=== PATIENT | female | born 1950 | race Hispanic/Latino ===

== ENCOUNTER 2016-03-23 16:07 | Inpatient (IN) | payer MEDICARE ==
[2016-03-23] MEDS ORDERED: NARCAN 2 MG/2 ML ONE ×3 (16:52→18:35)
--- NOTE | 2016-03-23 17:18 | Emergency Department Report ---
ED Altered Mental Status HPI - General Chief Complaint: Altered Mental Status Stated Complaint: OVERDOSE Time Seen by Provider: 03/23/16 16:46 Source: EMS Mode of arrival: Stretcher Limitations: Altered Mental Status - History of Present Illness Initial Comments: She has a 65-year-old female with history of chronic kidney disease, COPD, hyperlipidemia, hypertension, TIA and chronic back pain which she takes multiple medications including hydrocodone, gabapentin and baclofen brought in by embolus because of altered mental status. Family called EMS because patient was somnolent and they thought that she had overdosed on her medication. EMS had given him 2 mg of Narcan and the patient's altered mental status improved was able to wake up enough to answer some questions. Here she is unable to answer any questions or follow commands. Patient has stooled herself. - Related Data Home Medications Medication Instructions Recorded Confirmed Last Taken Gabapentin 600 cap PO TID 11/13/13 03/23/16 03/23/16 Baclofen [Lioresal] 10 mg PO TID 06/08/15 03/23/16 03/23/16 Clopidogrel [Plavix] 75 mg PO QDAY 06/08/15 03/23/16 03/23/16 Lumigan 0.01% 1 drop OU HS 02/26/16 03/23/16 03/23/16 Previous Rx's Medication Instructions Recorded Last Taken Type AtorvaSTATin [Lipitor] 40 mg PO DAILY #30 tablet 06/02/15 03/23/16 Rx metFORMIN [Glucophage] 1 tab PO BID #60 tablet 06/02/15 03/23/16 Rx HYDROcodone/APAP 10-325 [[place] 1 each PO Q6H PRN #6 tablet 03/02/16 03/23/16 Rx 10-325 mg TAB] Lisinopril [Zestril TAB] 20 mg PO QDAY #30 tablet 03/02/16 03/23/16 Rx Nicotine [Habitrol] 21 mg TD QDAY patch 03/02/16 03/23/16 Rx hydrALAZINE [Apresoline TAB] 25 mg PO Q12HR tablet 03/02/16 03/23/16 Rx Allergies Allergy/AdvReac Type Severity Reaction Status Date / Time Sulfa (Sulfonamide Allergy Rash Verified 02/25/16 19:43 Antibiotics) ED Review of Systems ROS: Stated complaint: OVERDOSE Other details as noted in HPI Comment: Unobtainable due to pts medical conditions (altered mental status) ED Past Medical Hx - Past Medical History Previous Medical History?: Yes Hx Hypertension: Yes (2010) Hx CVA: Yes (tia) Hx Heart Attack/AMI: (Pt denies) Hx Diabetes: Yes Hx GERD: Yes Hx Renal Disease: Yes (Renal insufficiency ) Hx Arthritis: Yes Hx COPD: Yes Additional medical history: tremors, pancreatitis - Surgical History Past Surgical History?: Yes Hx Breast Surgery: Yes ([facility]) - Social History Smoking Status: Current Every Day Smoker Substance Use Type: Prescribed - Medications Home Medications: Home Medications Medication Instructions Recorded Confirmed Last Taken Type Gabapentin 600 cap PO TID 11/13/13 03/23/16 03/23/16 History AtorvaSTATin [Lipitor] 40 mg PO DAILY #30 tablet 06/02/15 03/23/16 03/23/16 Rx metFORMIN [Glucophage] 1 tab PO BID #60 tablet 06/02/15 03/23/16 03/23/16 Rx Baclofen [Lioresal] 10 mg PO TID 06/08/15 03/23/16 03/23/16 History Clopidogrel [Plavix] 75 mg PO QDAY 06/08/15 03/23/16 03/23/16 History Lumigan 0.01% 1 drop OU HS 02/26/16 03/23/16 03/23/16 History HYDROcodone/APAP 10-325 [[place] 1 each PO Q6H PRN #6 tablet 03/02/16 03/23/16 Rx 10-325 mg TAB] Lisinopril [Zestril TAB] 20 mg PO QDAY #30 tablet 03/02/16 03/23/16 03/23/16 Rx Nicotine [Habitrol] 21 mg TD QDAY patch 03/02/16 03/23/16 03/23/16 Rx hydrALAZINE [Apresoline TAB] 25 mg PO Q12HR tablet 03/02/16 03/23/16 03/23/16 Rx ED Physical Exam - General Limitations: Altered Mental Status General appearance: obtunded - Head Head exam: Present: atraumatic - Eye Eye exam: Present: other (pulse pinpoint, doll's eye reflex negative) - Neck Neck exam: Present: normal inspection - Respiratory Respiratory exam: Present: normal lung sounds bilaterally, other (patient hypoxic to the high 80s while on 3 L nasal cannula) - Cardiovascular Cardiovascular Exam: Present: regular rate, normal rhythm - GI/Abdominal GI/Abdominal exam: Present: soft, other. Absent: distended, tenderness - Rectal Rectal exam: Present: other (Brown stool guaiac positive) - Extremities Exam Extremities exam: Present: normal capillary refill - Neurological Exam Neurological exam: Present: other (unresponsive to questions occasionally moves upper extremities to pain) - Skin Skin exam: Present: other (small bruise in the right lower extremity.) ED Course Vital Signs 03/23/16 03/23/16 03/23/16 16:16 16:31 17:01 Temperature 98.2 F Pulse Rate 99 H 91 H Pulse Rate [ Bilateral] Respiratory 14 23 Rate Respiratory Rate [Bilateral ] Blood Pressure 200/165 153/110 Blood Pressure [Right] O2 Sat by Pulse 71 L 86 97 Oximetry 03/23/16 03/23/16 03/23/16 17:38 18:17 18:50 Temperature 98.2 F Pulse Rate 92 H 93 H Pulse Rate [ Bilateral] Respiratory 18 Rate Respiratory Rate [Bilateral ] Blood Pressure 153/110 119/58 Blood Pressure 154/110 [Right] O2 Sat by Pulse 100 97 100 Oximetry 03/23/16 03/23/16 03/23/16 19:01 19:27 19:31 Temperature Pulse Rate 88 94 H 96 H Pulse Rate [ Bilateral] Respiratory 18 9 L 20 Rate Respiratory Rate [Bilateral ] Blood Pressure 153/110 153/110 153/110 Blood Pressure [Right] O2 Sat by Pulse 99 100 99 Oximetry 03/23/16 03/23/16 03/23/16 20:00 20:12 20:45 Temperature Pulse Rate 91 H 97 H Pulse Rate [ 96 H Bilateral] Respiratory 16 Rate Respiratory 18 Rate [Bilateral ] Blood Pressure 106/55 114/57 Blood Pressure [Right] O2 Sat by Pulse 87 99 Oximetry - Reevaluation(s) Reevaluation #1: 03/23/16 17:18 Give the patient Narcan in 0.5 mg doses up to 2 mg and patient was able to speak and would move all extremities hours following any complex commands, oxygen saturation moved up to 98-99% on 3 L nasal cannula Reevaluation #2: 03/23/16 18:53 She reassessed at bedside. Patient is not tolerating secretions have a significant amount of mucous coming out of her nose and mouth. Will not respond to any commands or awaken. He has received a total of 6 mg of Narcan. Patient intubated for airway protection. Reevaluation #3: 03/23/16 19:24 Chest x-ray shows et tube in place Reevaluation #4: 03/23/16 20:34 Patient is hemodynamically stable. Her labs did reveal hyperkalemia as well as renal failure. Insulin and dextrose, albuterol and bicarbonate were ordered. Page hospitalist at 8:10 PM, unable to take patient currently, we'll wait for 9 PM hospitalist - Intubation Time Out Performed: Yes Sedative: Etomidate Mg Given: 20 Paralytic: Rocuronium Mg Given: 40 (due to patient's hyperkalemia on labs) Laryngoscope: Tatyana Size: 3 ET Tube Size: 7.5 Tube Secured Depth (cm): 22 Tube Secured Location: lips Tube Placement Confirmation: visualized tube passing t, equal breath sounds bilat, confirmation by capnometr Patient Tolerated Procedure: well Intubation Complications: none - Lab Data Result diagrams: 03/23/16 18:14 03/23/16 17:33 Lab Results 03/23/16 03/23/16 03/23/16 Range/Units 17:33 17:33 17:33 WBC (4.5-11.0) K/mm3 RBC (3.65-5.03) M/mm3 Hgb (10.1-14.3) gm/dl Hct (30.3-42.9) % MCV (79-97) fl MCH (28-32) pg MCHC (30-34) % RDW (13.2-15.2) % Plt Count (140-440) K/mm3 [place] % (Auto) Add Manual Diff Total Counted Seg Neuts % (Manual) (40.0-70.0) % Band Neutrophils % % Lymphocytes % (Manual) (13.4-35.0) % Reactive Lymphs % (Man) % Monocytes % (Manual) (0.0-7.3) % Eosinophils % (Manual) (0.0-4.3) % Basophils % (Manual) (0.0-1.8) % Metamyelocytes % % Myelocytes % % Promyelocytes % % Blast Cells % % Nucleated RBC % Seg Neutrophils # Man (1.8-7.7) K/mm3 Band Neutrophils # K/mm3 Lymphocytes # (Manual) (1.2-5.4) K/mm3 Abs React Lymphs (Man) K/mm3 Monocytes # (Manual) (0.0-0.8) K/mm3 Eosinophils # (Manual) (0.0-0.4) K/mm3 Basophils # (Manual) (0.0-0.1) K/mm3 Metamyelocytes # K/mm3 Myelocytes # K/mm3 Promyelocytes # K/mm3 Blast Cells # K/mm3 WBC Morphology Hypersegmented Neuts Hyposegmented Neuts Hypogranular Neuts Smudge Cells Toxic Granulation Toxic Vacuolation Dohle Bodies Pelger-Huet Anomaly Sameer Rods Platelet Estimate Clumped Platelets Plt Clumps, EDTA Large Platelets Giant Platelets Platelet Satelliting Plt Morphology Comment RBC Morphology Dimorphic RBCs Polychromasia Hypochromasia Poikilocytosis Anisocytosis Microcytosis Macrocytosis Spherocytes Pappenheimer Bodies Sickle Cells Target Cells Tear Drop Cells Ovalocytes Helmet Cells Steve-Lasana Bodies [place] Rings Ryan Cells Bite Cells Crenated Cell Elliptocytes Acanthocytes (Spur) Rouleaux Hemoglobin C Crystals Schistocytes Malaria parasites Konstantin Bodies Hem Pathologist Commnt PT (12.2-14.9) Sec. INR (0.87-1.13) APTT (24.2-36.6) Sec. POC ABG pH (7.35-7.45) POC ABG pCO2 (35-45) POC ABG pO2 (80-105) POC ABG HCO3 POC ABG Total CO2 POC ABG O2 Sat POC ABG Base Excess FiO2 % Sodium 135 L (137-145) mmol/L Potassium 6.4 H* (3.6-5.0) mmol/L Chloride 104.6 (98-107) mmol/L Carbon Dioxide 11 L (22-30) mmol/L Anion Gap 26 mmol/L BUN 56 H (7-17) mg/dL Creatinine 2.4 H (0.7-1.2) mg/dL Estimated GFR 20 ml/min BUN/Creatinine Ratio 23.33 % Glucose 113 H (65-100) mg/dL POC Glucose (70-105) Lactic Acid (0.7-2.0) mmol/L Calcium 8.0 L (8.4-10.2) mg/dL Magnesium 1.9 (1.7-2.3) mg/dL Total Bilirubin 0.4 (0.1-1.2) mg/dL AST 27 (5-40) units/L ALT 17 (7-56) units/L Alkaline Phosphatase 117 (35-129) units/L Total Protein 6.5 (6.3-8.2) g/dL Albumin 2.8 L (3.9-5) g/dL Albumin/Globulin Ratio 0.8 % TSH 0.264 L (0.270-4.200) mlU/mL Urine Color (Yellow) Urine Turbidity (Clear) Urine pH (5.0-7.0) Ur Specific [place] (1.003-1.030) Urine Protein (Negative) mg/dL Urine Glucose (UA) (Negative) mg/dL Urine Ketones (Negative) mg/dL Urine Blood (Negative) Urine Nitrite (Negative) Urine Bilirubin (Negative) Urine Urobilinogen (<2.0) mg/dL Ur Leukocyte Esterase (Negative) Urine WBC (Auto) (0.0-6.0) /HPF Urine RBC (Auto) (0.0-6.0) /HPF U Epithel Cells (Auto) (0-13.0) /HPF Urine Mucus /HPF Salicylates 0.6 L (2.8-20.0) mg/dL Urine Opiates Screen Urine Methadone Screen Acetaminophen (10.0-30.0) ug/mL Ur Barbiturates Screen Ur Phencyclidine Scrn Ur Amphetamines Screen U Benzodiazepines Scrn Urine Cocaine Screen U Marijuana (THC) Screen Drugs of Abuse Note Plasma/Serum Alcohol (0-0.07) gm% Blood Type Antibody Screen 03/23/16 03/23/16 03/23/16 Range/Units 17:33 17:45 17:46 WBC (4.5-11.0) K/mm3 RBC (3.65-5.03) M/mm3 Hgb (10.1-14.3) gm/dl Hct (30.3-42.9) % MCV (79-97) fl MCH (28-32) pg MCHC (30-34) % RDW (13.2-15.2) % Plt Count (140-440) K/mm3 [place] % (Auto) Add Manual Diff Total Counted Seg Neuts % (Manual) (40.0-70.0) % Band Neutrophils % % Lymphocytes % (Manual) (13.4-35.0) % Reactive Lymphs % (Man) % Monocytes % (Manual) (0.0-7.3) % Eosinophils % (Manual) (0.0-4.3) % Basophils % (Manual) (0.0-1.8) % Metamyelocytes % % Myelocytes % % Promyelocytes % % Blast Cells % % Nucleated RBC % Seg Neutrophils # Man (1.8-7.7) K/mm3 Band Neutrophils # K/mm3 Lymphocytes # (Manual) (1.2-5.4) K/mm3 Abs React Lymphs (Man) K/mm3 Monocytes # (Manual) (0.0-0.8) K/mm3 Eosinophils # (Manual) (0.0-0.4) K/mm3 Basophils # (Manual) (0.0-0.1) K/mm3 Metamyelocytes # K/mm3 Myelocytes # K/mm3 Promyelocytes # K/mm3 Blast Cells # K/mm3 WBC Morphology Hypersegmented Neuts Hyposegmented Neuts Hypogranular Neuts Smudge Cells Toxic Granulation Toxic Vacuolation Dohle Bodies Pelger-Huet Anomaly Sameer Rods Platelet Estimate Clumped Platelets Plt Clumps, EDTA Large Platelets Giant Platelets Platelet Satelliting Plt Morphology Comment RBC Morphology Dimorphic RBCs Polychromasia Hypochromasia Poikilocytosis Anisocytosis Microcytosis Macrocytosis Spherocytes Pappenheimer Bodies Sickle Cells Target Cells Tear Drop Cells Ovalocytes Helmet Cells Steve-Lasana Bodies [place] Rings [place] Cells Bite Cells Crenated Cell Elliptocytes Acanthocytes (Spur) Rouleaux Hemoglobin C Crystals Schistocytes Malaria parasites Konstantin Bodies Hem Pathologist Commnt PT (12.2-14.9) Sec. INR (0.87-1.13) APTT (24.2-36.6) Sec. POC ABG pH (7.35-7.45) POC ABG pCO2 (35-45) POC ABG pO2 (80-105) POC ABG HCO3 POC ABG Total CO2 POC ABG O2 Sat POC ABG Base Excess FiO2 % Sodium (137-145) mmol/L Potassium (3.6-5.0) mmol/L Chloride (98-107) mmol/L Carbon Dioxide (22-30) mmol/L Anion Gap mmol/L BUN (7-17) mg/dL Creatinine (0.7-1.2) mg/dL Estimated GFR ml/min BUN/Creatinine Ratio % Glucose (65-100) mg/dL POC Glucose 138 H (70-105) Lactic Acid (0.7-2.0) mmol/L Calcium (8.4-10.2) mg/dL Magnesium (1.7-2.3) mg/dL Total Bilirubin (0.1-1.2) mg/dL AST (5-40) units/L ALT (7-56) units/L Alkaline Phosphatase (35-129) units/L Total Protein (6.3-8.2) g/dL Albumin (3.9-5) g/dL Albumin/Globulin Ratio % TSH (0.270-4.200) mlU/mL Urine Color (Yellow) Urine Turbidity (Clear) Urine pH (5.0-7.0) Ur Specific [place] (1.003-1.030) Urine Protein (Negative) mg/dL Urine Glucose (UA) (Negative) mg/dL Urine Ketones (Negative) mg/dL Urine Blood (Negative) Urine Nitrite (Negative) Urine Bilirubin (Negative) Urine Urobilinogen (<2.0) mg/dL Ur Leukocyte Esterase (Negative) Urine WBC (Auto) (0.0-6.0) /HPF Urine RBC (Auto) (0.0-6.0) /HPF U Epithel Cells (Auto) (0-13.0) /HPF Urine Mucus /HPF Salicylates (2.8-20.0) mg/dL Urine Opiates Screen Urine Methadone Screen Acetaminophen < 15.0 (10.0-30.0) ug/mL Ur Barbiturates Screen Ur Phencyclidine Scrn Ur Amphetamines Screen U Benzodiazepines Scrn Urine Cocaine Screen U Marijuana (THC) Screen Drugs of Abuse Note Plasma/Serum Alcohol < 0.01 (0-0.07) gm% Blood Type Antibody Screen 03/23/16 03/23/16 03/23/16 Range/Units 18:14 18:14 18:56 WBC 11.7 H (4.5-11.0) K/mm3 RBC 2.64 L (3.65-5.03) M/mm3 Hgb 8.6 L (10.1-14.3) gm/dl Hct 26.7 L (30.3-42.9) % MCV 101 H (79-97) fl MCH 33 H (28-32) pg MCHC 32 (30-34) % RDW 15.4 H (13.2-15.2) % Plt Count 142 (140-440) K/mm3 [place] % (Auto) Surgical Elastic Knitter Add Manual Diff Complete Total Counted 100 Seg Neuts % (Manual) 52.0 (40.0-70.0) % Band Neutrophils % 32.0 % Lymphocytes % (Manual) 3.0 L (13.4-35.0) % Reactive Lymphs % (Man) 0 % Monocytes % (Manual) 13.0 H (0.0-7.3) % Eosinophils % (Manual) 0 (0.0-4.3) % Basophils % (Manual) 0 (0.0-1.8) % Metamyelocytes % 0 % Myelocytes % 0 % Promyelocytes % 0 % Blast Cells % 0 % Nucleated RBC % Not Reportable Seg Neutrophils # Man 6.1 (1.8-7.7) K/mm3 Band Neutrophils # 3.7 K/mm3 Lymphocytes # (Manual) 0.4 L (1.2-5.4) K/mm3 Abs React Lymphs (Man) 0.0 K/mm3 Monocytes # (Manual) 1.5 H (0.0-0.8) K/mm3 Eosinophils # (Manual) 0.0 (0.0-0.4) K/mm3 Basophils # (Manual) 0.0 (0.0-0.1) K/mm3 Metamyelocytes # 0.0 K/mm3 Myelocytes # 0.0 K/mm3 Promyelocytes # 0.0 K/mm3 Blast Cells # 0.0 K/mm3 WBC Morphology Not Reportable Hypersegmented Neuts Not Reportable Hyposegmented Neuts Not Reportable Hypogranular Neuts Not Reportable Smudge Cells Not Reportable Toxic Granulation Not Reportable Toxic Vacuolation Not Reportable Dohle Bodies Not Reportable Pelger-Huet Anomaly Not Reportable Sameer Rods Not Reportable Platelet Estimate Consistent w auto Clumped Platelets Not Reportable Plt Clumps, EDTA Not Reportable Large Platelets Few Giant Platelets Not Reportable Platelet Satelliting Not Reportable Plt Morphology Comment Not Reportable RBC Morphology Not Reportable Dimorphic RBCs Not Reportable Polychromasia Not Reportable Hypochromasia Not Reportable Poikilocytosis Not Reportable Anisocytosis 1+ Microcytosis Not Reportable Macrocytosis Not Reportable Spherocytes Not Reportable Pappenheimer Bodies Not Reportable Sickle Cells Not Reportable Target Cells Not Reportable Tear Drop Cells Not Reportable Ovalocytes 1+ Helmet Cells Not Reportable Steve-Lasana Bodies Not Reportable [place] Rings Not Reportable Ryan Cells Not Reportable Bite Cells Not Reportable Crenated Cell 3+ Elliptocytes Not Reportable Acanthocytes (Spur) Not Reportable Rouleaux Not Reportable Hemoglobin C Crystals Not Reportable Schistocytes Not Reportable Malaria parasites Not Reportable Konstantin Bodies Not Reportable Hem Pathologist Commnt No PT 16.8 H (12.2-14.9) Sec. INR 1.37 H (0.87-1.13) APTT 28.7 (24.2-36.6) Sec. POC ABG pH (7.35-7.45) POC ABG pCO2 (35-45) POC ABG pO2 (80-105) POC ABG HCO3 POC ABG Total CO2 POC ABG O2 Sat POC ABG Base Excess FiO2 % Sodium (137-145) mmol/L Potassium (3.6-5.0) mmol/L Chloride (98-107) mmol/L Carbon Dioxide (22-30) mmol/L Anion Gap mmol/L BUN (7-17) mg/dL Creatinine (0.7-1.2) mg/dL Estimated GFR ml/min BUN/Creatinine Ratio % Glucose (65-100) mg/dL POC Glucose (70-105) Lactic Acid 1.9 (0.7-2.0) mmol/L Calcium (8.4-10.2) mg/dL Magnesium (1.7-2.3) mg/dL Total Bilirubin (0.1-1.2) mg/dL AST (5-40) units/L ALT (7-56) units/L Alkaline Phosphatase (35-129) units/L Total Protein (6.3-8.2) g/dL Albumin (3.9-5) g/dL Albumin/Globulin Ratio % TSH (0.270-4.200) mlU/mL Urine Color (Yellow) Urine Turbidity (Clear) Urine pH (5.0-7.0) Ur Specific [place] (1.003-1.030) Urine Protein (Negative) mg/dL Urine Glucose (UA) (Negative) mg/dL Urine Ketones (Negative) mg/dL Urine Blood (Negative) Urine Nitrite (Negative) Urine Bilirubin (Negative) Urine Urobilinogen (<2.0) mg/dL Ur Leukocyte Esterase (Negative) Urine WBC (Auto) (0.0-6.0) /HPF Urine RBC (Auto) (0.0-6.0) /HPF U Epithel Cells (Auto) (0-13.0) /HPF Urine Mucus /HPF Salicylates (2.8-20.0) mg/dL Urine Opiates Screen Urine Methadone Screen Acetaminophen (10.0-30.0) ug/mL Ur Barbiturates Screen Ur Phencyclidine Scrn Ur Amphetamines Screen U Benzodiazepines Scrn Urine Cocaine Screen U Marijuana (THC) Screen Drugs of Abuse Note Plasma/Serum Alcohol (0-0.07) gm% Blood Type Antibody Screen 03/23/16 03/23/16 03/23/16 Range/Units 19:07 19:19 19:36 WBC (4.5-11.0) K/mm3 RBC (3.65-5.03) M/mm3 Hgb (10.1-14.3) gm/dl Hct (30.3-42.9) % MCV (79-97) fl MCH (28-32) pg MCHC (30-34) % RDW (13.2-15.2) % Plt Count (140-440) K/mm3 [place] % (Auto) Add Manual Diff Total Counted Seg Neuts % (Manual) (40.0-70.0) % Band Neutrophils % % Lymphocytes % (Manual) (13.4-35.0) % Reactive Lymphs % (Man) % Monocytes % (Manual) (0.0-7.3) % Eosinophils % (Manual) (0.0-4.3) % Basophils % (Manual) (0.0-1.8) % Metamyelocytes % % Myelocytes % % Promyelocytes % % Blast Cells % % Nucleated RBC % Seg Neutrophils # Man (1.8-7.7) K/mm3 Band Neutrophils # K/mm3 Lymphocytes # (Manual) (1.2-5.4) K/mm3 Abs React Lymphs (Man) K/mm3 Monocytes # (Manual) (0.0-0.8) K/mm3 Eosinophils # (Manual) (0.0-0.4) K/mm3 Basophils # (Manual) (0.0-0.1) K/mm3 Metamyelocytes # K/mm3 Myelocytes # K/mm3 Promyelocytes # K/mm3 Blast Cells # K/mm3 WBC Morphology Hypersegmented Neuts Hyposegmented Neuts Hypogranular Neuts Smudge Cells Toxic Granulation Toxic Vacuolation Dohle Bodies Pelger-Huet Anomaly Sameer Rods Platelet Estimate Clumped Platelets Plt Clumps, EDTA Large Platelets Giant Platelets Platelet Satelliting Plt Morphology Comment RBC Morphology Dimorphic RBCs Polychromasia Hypochromasia Poikilocytosis Anisocytosis Microcytosis Macrocytosis Spherocytes Pappenheimer Bodies Sickle Cells Target Cells Tear Drop Cells Ovalocytes Helmet Cells Steve-Lasana Bodies [place] Rings Ryan Cells Bite Cells Crenated Cell Elliptocytes Acanthocytes (Spur) Rouleaux Hemoglobin C Crystals Schistocytes Malaria parasites Konstantin Bodies Hem Pathologist Commnt PT (12.2-14.9) Sec. INR (0.87-1.13) APTT (24.2-36.6) Sec. POC ABG pH 7.263 L (7.35-7.45) POC ABG pCO2 35.2 (35-45) POC ABG pO2 120 H (80-105) POC ABG HCO3 15.9 POC ABG Total CO2 17 POC ABG O2 Sat 98 POC ABG Base Excess -11 FiO2 50 % Sodium (137-145) mmol/L Potassium (3.6-5.0) mmol/L Chloride (98-107) mmol/L Carbon Dioxide (22-30) mmol/L Anion Gap mmol/L BUN (7-17) mg/dL Creatinine (0.7-1.2) mg/dL Estimated GFR ml/min BUN/Creatinine Ratio % Glucose (65-100) mg/dL POC Glucose 152 H (70-105) Lactic Acid (0.7-2.0) mmol/L Calcium (8.4-10.2) mg/dL Magnesium (1.7-2.3) mg/dL Total Bilirubin (0.1-1.2) mg/dL AST (5-40) units/L ALT (7-56) units/L Alkaline Phosphatase (35-129) units/L Total Protein (6.3-8.2) g/dL Albumin (3.9-5) g/dL Albumin/Globulin Ratio % TSH (0.270-4.200) mlU/mL Urine Color (Yellow) Urine Turbidity (Clear) Urine pH (5.0-7.0) Ur Specific [place] (1.003-1.030) Urine Protein (Negative) mg/dL Urine Glucose (UA) (Negative) mg/dL Urine Ketones (Negative) mg/dL Urine Blood (Negative) Urine Nitrite (Negative) Urine Bilirubin (Negative) Urine Urobilinogen (<2.0) mg/dL Ur Leukocyte Esterase (Negative) Urine WBC (Auto) (0.0-6.0) /HPF Urine RBC (Auto) (0.0-6.0) /HPF U Epithel Cells (Auto) (0-13.0) /HPF Urine Mucus /HPF Salicylates (2.8-20.0) mg/dL Urine Opiates Screen Urine Methadone Screen Acetaminophen (10.0-30.0) ug/mL Ur Barbiturates Screen Ur Phencyclidine Scrn Ur Amphetamines Screen U Benzodiazepines Scrn Urine Cocaine Screen U Marijuana (THC) Screen Drugs of Abuse Note Plasma/Serum Alcohol (0-0.07) gm% Blood Type B NEGATIVE Antibody Screen Negative 03/23/16 03/23/16 03/23/16 Range/Units 20:10 20:13 20:13 WBC (4.5-11.0) K/mm3 RBC (3.65-5.03) M/mm3 Hgb (10.1-14.3) gm/dl Hct (30.3-42.9) % MCV (79-97) fl MCH (28-32) pg MCHC (30-34) % RDW (13.2-15.2) % Plt Count (140-440) K/mm3 [place] % (Auto) Add Manual Diff Total Counted Seg Neuts % (Manual) (40.0-70.0) % Band Neutrophils % % Lymphocytes % (Manual) (13.4-35.0) % Reactive Lymphs % (Man) % Monocytes % (Manual) (0.0-7.3) % Eosinophils % (Manual) (0.0-4.3) % Basophils % (Manual) (0.0-1.8) % Metamyelocytes % % Myelocytes % % Promyelocytes % % Blast Cells % % Nucleated RBC % Seg Neutrophils # Man (1.8-7.7) K/mm3 Band Neutrophils # K/mm3 Lymphocytes # (Manual) (1.2-5.4) K/mm3 Abs React Lymphs (Man) K/mm3 Monocytes # (Manual) (0.0-0.8) K/mm3 Eosinophils # (Manual) (0.0-0.4) K/mm3 Basophils # (Manual) (0.0-0.1) K/mm3 Metamyelocytes # K/mm3 Myelocytes # K/mm3 Promyelocytes # K/mm3 Blast Cells # K/mm3 WBC Morphology Hypersegmented Neuts Hyposegmented Neuts Hypogranular Neuts Smudge Cells Toxic Granulation Toxic Vacuolation Dohle Bodies Pelger-Huet Anomaly Sameer Rods Platelet Estimate Clumped Platelets Plt Clumps, EDTA Large Platelets Giant Platelets Platelet Satelliting Plt Morphology Comment RBC Morphology Dimorphic RBCs Polychromasia Hypochromasia Poikilocytosis Anisocytosis Microcytosis Macrocytosis Spherocytes Pappenheimer Bodies Sickle Cells Target Cells Tear Drop Cells Ovalocytes Helmet Cells Steve-Lasana Bodies [place] Rings Ryan Cells Bite Cells Crenated Cell Elliptocytes Acanthocytes (Spur) Rouleaux Hemoglobin C Crystals Schistocytes Malaria parasites Konstantin Bodies Hem Pathologist Commnt PT (12.2-14.9) Sec. INR (0.87-1.13) APTT (24.2-36.6) Sec. POC ABG pH (7.35-7.45) POC ABG pCO2 (35-45) POC ABG pO2 (80-105) POC ABG HCO3 POC ABG Total CO2 POC ABG O2 Sat POC ABG Base Excess FiO2 % Sodium (137-145) mmol/L Potassium (3.6-5.0) mmol/L Chloride (98-107) mmol/L Carbon Dioxide (22-30) mmol/L Anion Gap mmol/L BUN (7-17) mg/dL Creatinine (0.7-1.2) mg/dL Estimated GFR ml/min BUN/Creatinine Ratio % Glucose (65-100) mg/dL POC Glucose (70-105) Lactic Acid 1.4 (0.7-2.0) mmol/L Calcium (8.4-10.2) mg/dL Magnesium (1.7-2.3) mg/dL Total Bilirubin (0.1-1.2) mg/dL AST (5-40) units/L ALT (7-56) units/L Alkaline Phosphatase (35-129) units/L Total Protein (6.3-8.2) g/dL Albumin (3.9-5) g/dL Albumin/Globulin Ratio % TSH (0.270-4.200) mlU/mL Urine Color Yellow (Yellow) Urine Turbidity Slightly-cloudy (Clear) Urine pH 5.0 (5.0-7.0) Ur Specific [place] 1.016 (1.003-1.030) Urine Protein 100 mg/dl (Negative) mg/dL Urine Glucose (UA) Neg (Negative) mg/dL Urine Ketones Neg (Negative) mg/dL Urine Blood Mod (Negative) Urine Nitrite Neg (Negative) Urine Bilirubin Neg (Negative) Urine Urobilinogen < 2.0 (<2.0) mg/dL Ur Leukocyte Esterase Neg (Negative) Urine WBC (Auto) < 1.0 (0.0-6.0) /HPF Urine RBC (Auto) < 1.0 (0.0-6.0) /HPF U Epithel Cells (Auto) < 1.0 (0-13.0) /HPF Urine Mucus Few /HPF Salicylates (2.8-20.0) mg/dL Urine Opiates Screen Presumptive positive Urine Methadone Screen Presumptive negative Acetaminophen (10.0-30.0) ug/mL Ur Barbiturates Screen Presumptive negative Ur Phencyclidine Scrn Presumptive negative Ur Amphetamines Screen Presumptive negative U Benzodiazepines Scrn Presumptive negative Urine Cocaine Screen Presumptive negative U Marijuana (THC) Screen Presumptive negative Drugs of Abuse Note Disclamer Plasma/Serum Alcohol (0-0.07) gm% Blood Type Antibody Screen 03/23/16 Range/Units 20:41 WBC (4.5-11.0) K/mm3 RBC (3.65-5.03) M/mm3 Hgb (10.1-14.3) gm/dl Hct (30.3-42.9) % MCV (79-97) fl MCH (28-32) pg MCHC (30-34) % RDW (13.2-15.2) % Plt Count (140-440) K/mm3 [place] % (Auto) Add Manual Diff Total Counted Seg Neuts % (Manual) (40.0-70.0) % Band Neutrophils % % Lymphocytes % (Manual) (13.4-35.0) % Reactive Lymphs % (Man) % Monocytes % (Manual) (0.0-7.3) % Eosinophils % (Manual) (0.0-4.3) % Basophils % (Manual) (0.0-1.8) % Metamyelocytes % % Myelocytes % % Promyelocytes % % Blast Cells % % Nucleated RBC % Seg Neutrophils # Man (1.8-7.7) K/mm3 Band Neutrophils # K/mm3 Lymphocytes # (Manual) (1.2-5.4) K/mm3 Abs React Lymphs (Man) K/mm3 Monocytes # (Manual) (0.0-0.8) K/mm3 Eosinophils # (Manual) (0.0-0.4) K/mm3 Basophils # (Manual) (0.0-0.1) K/mm3 Metamyelocytes # K/mm3 Myelocytes # K/mm3 Promyelocytes # K/mm3 Blast Cells # K/mm3 WBC Morphology Hypersegmented Neuts Hyposegmented Neuts Hypogranular Neuts Smudge Cells Toxic Granulation Toxic Vacuolation Dohle Bodies Pelger-Huet Anomaly Sameer Rods Platelet Estimate Clumped Platelets Plt Clumps, EDTA Large Platelets Giant Platelets Platelet Satelliting Plt Morphology Comment RBC Morphology Dimorphic RBCs Polychromasia Hypochromasia Poikilocytosis Anisocytosis Microcytosis Macrocytosis Spherocytes Pappenheimer Bodies Sickle Cells Target Cells Tear Drop Cells Ovalocytes Helmet Cells Steve-[place] Bodies [place] Rings Ryan Cells Bite Cells Crenated Cell Elliptocytes Acanthocytes (Spur) Rouleaux Hemoglobin C Crystals Schistocytes Malaria parasites Konstantin Bodies Hem Pathologist Commnt PT (12.2-14.9) Sec. INR (0.87-1.13) APTT (24.2-36.6) Sec. POC ABG pH (7.35-7.45) POC ABG pCO2 (35-45) POC ABG pO2 (80-105) POC ABG HCO3 POC ABG Total CO2 POC ABG O2 Sat POC ABG Base Excess FiO2 % Sodium (137-145) mmol/L Potassium (3.6-5.0) mmol/L Chloride (98-107) mmol/L Carbon Dioxide (22-30) mmol/L Anion Gap mmol/L BUN (7-17) mg/dL Creatinine (0.7-1.2) mg/dL Estimated GFR ml/min BUN/Creatinine Ratio % Glucose (65-100) mg/dL POC Glucose 223 H (70-105) Lactic Acid (0.7-2.0) mmol/L Calcium (8.4-10.2) mg/dL Magnesium (1.7-2.3) mg/dL Total Bilirubin (0.1-1.2) mg/dL AST (5-40) units/L ALT (7-56) units/L Alkaline Phosphatase (35-129) units/L Total Protein (6.3-8.2) g/dL Albumin (3.9-5) g/dL Albumin/Globulin Ratio % TSH (0.270-4.200) mlU/mL Urine Color (Yellow) Urine Turbidity (Clear) Urine pH (5.0-7.0) Ur Specific [place] (1.003-1.030) Urine Protein (Negative) mg/dL Urine Glucose (UA) (Negative) mg/dL Urine Ketones (Negative) mg/dL Urine Blood (Negative) Urine Nitrite (Negative) Urine Bilirubin (Negative) Urine Urobilinogen (<2.0) mg/dL Ur Leukocyte Esterase (Negative) Urine WBC (Auto) (0.0-6.0) /HPF Urine RBC (Auto) (0.0-6.0) /HPF U Epithel Cells (Auto) (0-13.0) /HPF Urine Mucus /HPF Salicylates (2.8-20.0) mg/dL Urine Opiates Screen Urine Methadone Screen Acetaminophen (10.0-30.0) ug/mL Ur Barbiturates Screen Ur Phencyclidine Scrn Ur Amphetamines Screen U Benzodiazepines Scrn Urine Cocaine Screen U Marijuana (THC) Screen Drugs of Abuse Note Plasma/Serum Alcohol (0-0.07) gm% Blood Type Antibody Screen - Medical Decision Making Highest on the differential is medication overdose due to patient being on multiple medications having had a past CT of the head will rule out any sort of intracranial bleed, labs, urinalysis, EKG EKG shows normal sinus rhythm at a heart rate of 96 with a poor baseline, no ST or T-wave changes. Difficult to evaluate due to poor baseline. Critical Care Time: Yes Critical care time in (mins) excluding proc time.: 30 Critical care attestation.: If time is entered above; I have spent that time in minutes in the direct care of this critically ill patient, excluding procedure time. ED Disposition Clinical Impression: Hyperkalemia Respiratory failure Qualifiers: Chronicity: acute Respiratory failure complication: hypoxia Qualified Code(s): J96.01 - Acute respiratory failure with hypoxia Acute renal failure Qualifiers: Acute renal failure type: unspecified Qualified Code(s): N17.9 - Acute kidney failure, unspecified Disposition: OP ADMITTED IP TO THIS HOSP Is pt being admited?: Yes Condition: Critical Referrals: PRIMARY CARE, [Primary Care Provider] - 3-5 Days Time of Disposition: 21:45 (Spoke to Dr. Caceres)
[2016-03-23 18:19] LABS: Albumin 2.8 g/dL (3.9-5); Albumin/Globulin Ratio 0.8 %; BUN/Creatinine Ratio 23.33; Bilirubin,Total 0.4 mg/dL (0.1-1.2); Chloride 104.6 mmol/L (98-107); Magnesium 1.9 mg/dL (1.7-2.3); Total Protein 6.5 g/dL (6.3-8.2)
[2016-03-23 18:20] LABS: Potassium 6.4 mmol/L (3.6-5.0)
[2016-03-23 18:25] LABS: Hematocrit 26.7 % (30.3-42.9); Hemoglobin 8.6 gm/dl (10.1-14.3); Mean Corpuscular HGB Conc 32 % (30-34); Mean Corpuscular Hemoglobin 33 pg (28-32); Mean Corpuscular Volume 101 fl (79-97); Platelet Count 142 K/mm3 (140-440); Red Blood Count 2.64 M/mm3 (3.65-5.03); Red Cell Distribution Width 15.4 % (13.2-15.2); White Blood Count 11.7 K/mm3 (4.5-11.0)
--- NOTE | 2016-03-23 18:28 | Cat Scan Report ---
FINAL REPORT PROCEDURE: CT HEAD/BRAIN WO CON TECHNIQUE: Computerized tomography of the head was performed without contrast material. HISTORY: Altered mental status COMPARISON: No prior studies are available for comparison. FINDINGS: Brain: Brain density appears normal. No evidence of intracranial hemorrhage. No parenchymal hemorrhage, mass lesions or mass effect are seen. No abnormal extraxial fluid collects or masses are seen. Nonspecific mineralization of the basal ganglia are visualized Ventricles: Ventricles are normal size and are midline. Bone Windows: No evidence of skull fracture. Paranasal sinuses: There is minimal mucosal thickening in a few of the ethmoid air cells on the right and anteriorly in the sphenoid sinuses. No air-fluid levels are seen Mastoid air cells: Clear IMPRESSION: Minimal paranasal sinus disease otherwise negative exam.
[2016-03-23] MEDS ORDERED: PROTONIX IV ONE (18:29)
[2016-03-23] MEDS ORDERED: NARCAN 2 MG/2 ML IV ONE ×3 (18:37)
[2016-03-23] MEDS ORDERED: AMIDATE IV ONE ×2 (18:43→18:45)
[2016-03-23] MEDS ORDERED: ZEMURON IV ONE ×2 (18:44→18:45)
[2016-03-23] MEDS ORDERED: NACL 0.9% 1000 ML 1,000 ML IV ONE (19:09)
[2016-03-23] MEDS ORDERED: PROVENTIL IH ONE (19:10)
[2016-03-23] MEDS ORDERED: SODIUM BICARBONATE IV ONE ×2 (19:11→20:00)
[2016-03-23] MEDS ORDERED: D50W (25GM) IV ONE ×2 (19:14→20:00)
[2016-03-23 19:32] LABS: INR 1.37 (0.87-1.13)
[2016-03-23 19:33] LABS: Partial Thromboplastin Time 28.7 Sec. (24.2-36.6)
[2016-03-23 19:44] LABS: ISTAT Base Excess -11; ISTAT HCO3 15.9; ISTAT PCO2 35.2 (35-45); ISTAT PH 7.263 (7.35-7.45); ISTAT PO2 120 (80-105); ISTAT SO2 98; ISTAT TCO2 17
[2016-03-23 19:47] LABS: Basophils % (Manual) 0 % (0.0-1.8); Blastocytes % (Manual) 0 %; Eosinophils % (Manual) 0 % (0.0-4.3)
[2016-03-23 19:48] LABS: Anisocytosis 1+
[2016-03-23 19:49] LABS: Crenated RBC 3+; Ovalocytes 1+
[2016-03-23 19:50] LABS: Large Platelets Few; Platelet Estimate Consistent w Auto
[2016-03-23 19:51] LABS: Diff Status Complete
[2016-03-23 20:28] LABS: Urine Drugs of Abuse Note Disclamer
[2016-03-23 20:36] LABS: Bilirubin,Urine NEG (Negative); Blood,Urine MOD (Negative); Ketones,Urine NEG (Negative); Leukocyte Esterase,Urine NEG (Negative); Mucus,Urine FEW /HPF; Nitrite,Urine NEG (Negative); RBC,Urine < 1.0 /HPF (0.0-6.0); Urobilinogen,Urine < 2.0 mg/dL (<2.0); WBC,Urine < 1.0 /HPF (0.0-6.0)
[2016-03-23] MEDS ORDERED: ATIVAN IV ONE (20:53)
--- NOTE | 2016-03-23 23:05 | Admit Criteria Form ---
Admission Criteria Documentation: RENAL FAILURE, CHRONIC Clinical Indications for Admission to Inpatient Care (Place 'X' for any and all applicable criteria): Admission is indicated for ANY ONE of the following (1)(2)(3)(4)(5): [ X]I. Inpatient admission required rather than observation care (Use Renal Failure, Chronic: Observation Care Criteria as appropriate) because of ANY ONE of the following: [ ]a) Volume overload or uremic symptoms (eg, clinically significant pulmonary edema, hypertension, pericarditis, acidosis) too severe for, or not responsive (eg, for over 24 hours) to emergency department or observation care dialysis or treatment regimen (11) [ ]b) Hemodynamic instability that is severe or persistent [ ]c) Respiratory distress that is severe or persistent (11) [ X]d) Clinically significant electrolyte abnormality that requires inpatient care (eg,hyperkalemia with severe ECG findings)[B] [ ]e) Supplement O2 or respiratory therapy for over 24hrs that is performable only in acute inpatient setting [ ]f) Continuous IV infusion of anticoagulation, platelet inhibitor, vasoactive, or Antiarrhythmic medication (15), [ ]g) Pulmonary artery catheter monitoring [ ]h) Temporary pacemaker placement [ ]i) Emergent pericardiocentesis [ ]j) Other condition, treatment or monitoring requiring inpatient admission [ ]II. Unexplained syncope [A] [ ]III. Recurrent seizures [ ]IV. Severe infections not treatable in outpatient setting (eg, peritonitis)(9 ) [ ]V. Cardiac arrhythmias of immediate concern [ ]. Encephalopathy [ ]VII.Bleeding abnormalities (eg, platelet dysfunction) with active (eg, gastrointestinal) bleeding Extended stay beyond goal length of stay may be needed for (3)(4)(35)(36): [ ]a) Continuing uremic complications [ ]b) Comorbidities or complications The original [employer] content created by [employer] has been revised. The portions of the content which have been revised are identified through the use of italic text or in bold, and [employer] [facility] [employer] has neither reviewed nor approved the modified material. All other unmodified content is copyright [employer]. Please see references footnoted in the original [facility] edition 2016 Admission Criteria Met: Yes
[2016-03-24] MEDS ORDERED: ZOSYN/NS 3.375GM/50ML 50 ML IV SCH
[2016-03-24] MEDS ORDERED: ATIVAN ONE (00:19)
[2016-03-24] MEDS ORDERED: ZOSYN/NS 3.375GM/50ML 50 ML IV ONE (00:20)
[2016-03-24] MEDS ORDERED: ATIVAN IV ONE (00:20)
[2016-03-24] MEDS: ZOSYN/NS 2.25 GM/50ML 50 ML IV SCH ×2 (00:48→05:40)
--- NOTE | 2016-03-24 01:12 | History and Physical Report ---
History of Present Illness Date of examination: 03/23/16 Date of admission: 03/23/16 23:34 Chief complaint: Altered mental status History of present illness: A 65-year-old female with history of chronic kidney disease, COPD, hyperlipidemia, hypertension, TIA and chronic back pain which she takes multiple medications including hydrocodone, gabapentin and baclofen brought in by ambulance because of altered mental status. Family called EMS because patient was somnolent and they thought that she had overdosed on her medication. EMS had given him 2 mg of Narcan and the patient's altered mental status improved was able to wake up enough to answer some questions. Here she is unable to answer any questions or follow commands. Past History Past Medical History: COPD, hypertension, hyperlipidemia, renal failure, other Past Surgical History: Other (couldn't obtained because of altered mental status ) Social history: other (couldn't obtained because of altered mental status) Family history: other (couldn't obtained because of altered mental status) Medications and Allergies Allergies Allergy/AdvReac Type Severity Reaction Status Date / Time Sulfa (Sulfonamide Allergy Rash Verified 02/25/16 19:43 Antibiotics) Home Medications Medication Instructions Recorded Confirmed Last Taken Type Gabapentin 600 cap PO TID 11/13/13 03/23/16 03/23/16 History AtorvaSTATin [Lipitor] 40 mg PO DAILY #30 tablet 06/02/15 03/23/16 03/23/16 Rx metFORMIN [Glucophage] 1 tab PO BID #60 tablet 06/02/15 03/23/16 03/23/16 Rx Baclofen [Lioresal] 10 mg PO TID 06/08/15 03/23/16 03/23/16 History Clopidogrel [Plavix] 75 mg PO QDAY 06/08/15 03/23/16 03/23/16 History Lumigan 0.01% 1 drop OU HS 02/26/16 03/23/16 03/23/16 History HYDROcodone/APAP 10-325 [[place] 1 each PO Q6H PRN #6 tablet 03/02/16 03/23/16 Rx 10-325 mg TAB] Lisinopril [Zestril TAB] 20 mg PO QDAY #30 tablet 03/02/16 03/23/16 03/23/16 Rx Nicotine [Habitrol] 21 mg TD QDAY patch 03/02/16 03/23/16 03/23/16 Rx hydrALAZINE [Apresoline TAB] 25 mg PO Q12HR tablet 03/02/16 03/23/16 03/23/16 Rx Active Meds: Active Medications Heparin Sodium (Porcine) (Heparin) 5,000 unit SUB-Q Q8HR LUDA Piperacillin Sod/Tazobactam Sod (Zosyn/Ns 2.25 Gm/50ml) 50 mls @ 100 mls/hr IV Q6HR LUDA Last Admin: 03/24/16 00:48 Dose: 100 mls/hr Review of Systems ROS unobtainable: due to mental status (couldn't obtained because of altered mental status) Exam - Physical Exam Narrative exam: Inpatient is intubated and mechanically ventilated. Vital signs as documented. Head exam is unremarkable. No scleral icterus . Neck is without jugular venous distension, thyromegaly, or carotid bruits. Lungs are clear to auscultation. Cardiac exam reveals regular rate and Rhythm. First and second heart sounds normal. No murmurs, rubs or gallops. Abdominal exam reveals normal bowel sounds, no masses, no organomegaly and no aortic enlargement. Extremities are nonedematous and both femoral and pedal pulses are normal. 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 No focal weakness. - Constitutional Vitals: Temp Pulse Resp BP Pulse Ox 98.2 F 92 H 20 105/54 99 03/23/16 17:38 03/24/16 00:00 03/24/16 00:00 03/24/16 00:00 03/24/16 00:00 Results - Labs CBC & Chem 7: 03/23/16 18:14 03/23/16 17:33 Labs: Laboratory Last Values WBC 11.7 K/mm3 (4.5-11.0) H 03/23/16 18:14 RBC 2.64 M/mm3 (3.65-5.03) L 03/23/16 18:14 Hgb 8.6 gm/dl (10.1-14.3) L 03/23/16 18:14 Hct 26.7 % (30.3-42.9) L 03/23/16 18:14 MCV 101 fl (79-97) H 03/23/16 18:14 MCH 33 pg (28-32) H 03/23/16 18:14 MCHC 32 % (30-34) 03/23/16 18:14 RDW 15.4 % (13.2-15.2) H 03/23/16 18:14 Plt Count 142 K/mm3 (140-440) 03/23/16 18:14 [place] % (Auto) Hall Coordinator 03/23/16 18:14 Add Manual Diff Complete 03/23/16 18:14 Total Counted 100 03/23/16 18:14 Seg Neuts % (Manual) 52.0 % (40.0-70.0) 03/23/16 18:14 Band Neutrophils % 32.0 % 03/23/16 18:14 Lymphocytes % (Manual) 3.0 % (13.4-35.0) L 03/23/16 18:14 Reactive Lymphs % (Man) 0 % 03/23/16 18:14 Monocytes % (Manual) 13.0 % (0.0-7.3) H 03/23/16 18:14 Eosinophils % (Manual) 0 % (0.0-4.3) 03/23/16 18:14 Basophils % (Manual) 0 % (0.0-1.8) 03/23/16 18:14 Metamyelocytes % 0 % 03/23/16 18:14 Myelocytes % 0 % 03/23/16 18:14 Promyelocytes % 0 % 03/23/16 18:14 Blast Cells % 0 % 03/23/16 18:14 Nucleated RBC % Not Reportable 03/23/16 18:14 Seg Neutrophils # Man 6.1 K/mm3 (1.8-7.7) 03/23/16 18:14 Band Neutrophils # 3.7 K/mm3 03/23/16 18:14 Lymphocytes # (Manual) 0.4 K/mm3 (1.2-5.4) L 03/23/16 18:14 Abs React Lymphs (Man) 0.0 K/mm3 03/23/16 18:14 Monocytes # (Manual) 1.5 K/mm3 (0.0-0.8) H 03/23/16 18:14 Eosinophils # (Manual) 0.0 K/mm3 (0.0-0.4) 03/23/16 18:14 Basophils # (Manual) 0.0 K/mm3 (0.0-0.1) 03/23/16 18:14 Metamyelocytes # 0.0 K/mm3 03/23/16 18:14 Myelocytes # 0.0 K/mm3 03/23/16 18:14 Promyelocytes # 0.0 K/mm3 03/23/16 18:14 Blast Cells # 0.0 K/mm3 03/23/16 18:14 WBC Morphology Not Reportable 03/23/16 18:14 Hypersegmented Neuts Not Reportable 03/23/16 18:14 Hyposegmented Neuts Not Reportable 03/23/16 18:14 Hypogranular Neuts Not Reportable 03/23/16 18:14 Smudge Cells Not Reportable 03/23/16 18:14 Toxic Granulation Not Reportable 03/23/16 18:14 Toxic Vacuolation Not Reportable 03/23/16 18:14 Dohle Bodies Not Reportable 03/23/16 18:14 Pelger-Huet Anomaly Not Reportable 03/23/16 18:14 Sameer Rods Not Reportable 03/23/16 18:14 Platelet Estimate Consistent w auto 03/23/16 18:14 Clumped Platelets Not Reportable 03/23/16 18:14 Plt Clumps, EDTA Not Reportable 03/23/16 18:14 Large Platelets Few 03/23/16 18:14 Giant Platelets Not Reportable 03/23/16 18:14 Platelet Satelliting Not Reportable 03/23/16 18:14 Plt Morphology Comment Not Reportable 03/23/16 18:14 RBC Morphology Not Reportable 03/23/16 18:14 Dimorphic RBCs Not Reportable 03/23/16 18:14 Polychromasia Not Reportable 03/23/16 18:14 Hypochromasia Not Reportable 03/23/16 18:14 Poikilocytosis Not Reportable 03/23/16 18:14 Anisocytosis 1+ 03/23/16 18:14 Microcytosis Not Reportable 03/23/16 18:14 Macrocytosis Not Reportable 03/23/16 18:14 Spherocytes Not Reportable 03/23/16 18:14 Pappenheimer Bodies Not Reportable 03/23/16 18:14 Sickle Cells Not Reportable 03/23/16 18:14 Target Cells Not Reportable 03/23/16 18:14 Tear Drop Cells Not Reportable 03/23/16 18:14 Ovalocytes 1+ 03/23/16 18:14 Helmet Cells Not Reportable 03/23/16 18:14 Steve-[place] Bodies Not Reportable 03/23/16 18:14 [place] Rings Not Reportable 03/23/16 18:14 [place] Cells Not Reportable 03/23/16 18:14 Bite Cells Not Reportable 03/23/16 18:14 Crenated Cell 3+ 03/23/16 18:14 Elliptocytes Not Reportable 03/23/16 18:14 Acanthocytes (Spur) Not Reportable 03/23/16 18:14 Rouleaux Not Reportable 03/23/16 18:14 Hemoglobin C Crystals Not Reportable 03/23/16 18:14 Schistocytes Not Reportable 03/23/16 18:14 Malaria parasites Not Reportable 03/23/16 18:14 Konstantin Bodies Not Reportable 03/23/16 18:14 Hem Pathologist Commnt No 03/23/16 18:14 PT 16.8 Sec. (12.2-14.9) H 03/23/16 18:56 INR 1.37 (0.87-1.13) H 03/23/16 18:56 APTT 28.7 Sec. (24.2-36.6) 03/23/16 18:56 POC ABG pH 7.263 (7.35-7.45) L 03/23/16 19:19 POC ABG pCO2 35.2 (35-45) 03/23/16 19:19 POC ABG pO2 120 (80-105) H 03/23/16 19:19 POC ABG HCO3 15.9 03/23/16 19:19 POC ABG Total CO2 17 03/23/16 19:19 POC ABG O2 Sat 98 03/23/16 19:19 POC ABG Base Excess -11 03/23/16 19:19 FiO2 50 % 03/23/16 19:19 Sodium 135 mmol/L (137-145) L 03/23/16 17:33 Potassium 6.4 mmol/L (3.6-5.0) H* 03/23/16 17:33 Chloride 104.6 mmol/L (98-107) 03/23/16 17:33 Carbon Dioxide 11 mmol/L (22-30) L 03/23/16 17:33 Anion Gap 26 mmol/L 03/23/16 17:33 BUN 56 mg/dL (7-17) H 03/23/16 17:33 Creatinine 2.4 mg/dL (0.7-1.2) H 03/23/16 17:33 Estimated GFR 20 ml/min 03/23/16 17:33 BUN/Creatinine Ratio 23.33 % 03/23/16 17: Glucose 113 mg/dL (65-100) H 03/23/16 17: POC Glucose 144 (70-105) H 03/24/16 00:10 Lactic Acid 1.4 mmol/L (0.7-2.0) 03/23/16 20:10 Calcium 8.0 mg/dL (8.4-10.2) L 03/23/16 17: Magnesium 1.9 mg/dL (1.7-2.3) 03/23/16 17: Total Bilirubin 0.4 mg/dL (0.1-1.2) 03/23/16 17:33 AST 27 units/L (5-40) 03/23/16 17:33 ALT 17 units/L (7-56) 03/23/16 17:33 Alkaline Phosphatase 117 units/L (35-129) 03/23/16 17:33 Total Protein 6.5 g/dL (6.3-8.2) 03/23/16 17:33 Albumin 2.8 g/dL (3.9-5) L 03/23/16 17:33 Albumin/Globulin Ratio 0.8 % 03/23/16 17: TSH 0.264 mlU/mL (0.270-4.200) L 03/23/16 17:33 Urine Color Yellow (Yellow) 03/23/16 20:13 Urine Turbidity Slightly-cloudy (Clear) 03/23/16 20:13 Urine pH 5.0 (5.0-7.0) 03/23/16 20:13 Ur Specific [place] 1.016 (1.003-1.030) 03/23/16 20:13 Urine Protein 100 mg/dl mg/dL (Negative) 03/23/16 20:13 Urine Glucose (UA) Neg mg/dL (Negative) 03/23/16 20: Urine Ketones Neg mg/dL (Negative) 03/23/16 20:13 Urine Blood Mod (Negative) 03/23/16 20:13 Urine Nitrite Neg (Negative) 03/23/16 20:13 Urine Bilirubin Neg (Negative) 03/23/16 20:13 Urine Urobilinogen < 2.0 mg/dL (<2.0) 03/23/16 20:13 Ur Leukocyte Esterase Neg (Negative) 03/23/16 20:13 Urine WBC (Auto) < 1.0 /HPF (0.0-6.0) 03/23/16 20:13 Urine RBC (Auto) < 1.0 /HPF (0.0-6.0) 03/23/16 20:13 U Epithel Cells (Auto) < 1.0 /HPF (0-13.0) 03/23/16 20:13 Urine Mucus Few /HPF 03/23/16 20:13 Salicylates 0.6 mg/dL (2.8-20.0) L 03/23/16 17:33 Urine Opiates Screen Presumptive positive 03/23/16 20:13 Urine Methadone Screen Presumptive negative 03/23/16 20:13 Acetaminophen < 15.0 ug/mL (10.0-30.0) 03/23/16 17:33 Ur Barbiturates Screen Presumptive negative 03/23/16 20:13 Ur Phencyclidine Scrn Presumptive negative 03/23/16 20:13 Ur Amphetamines Screen Presumptive negative 03/23/16 20:13 U Benzodiazepines Scrn Presumptive negative 03/23/16 20:13 Urine Cocaine Screen Presumptive negative 03/23/16 20:13 U Marijuana (THC) Screen Presumptive negative 03/23/16 20:13 Drugs of Abuse Note Disclamer 03/23/16 20:13 Plasma/Serum Alcohol < 0.01 gm% (0-0.07) 03/23/16 17:45 Blood Type B NEGATIVE 03/23/16 19:07 Antibody Screen Negative 03/23/16 19:07 Assessment and Plan Assessment and plan: Altered mental status Acute respiratory failure Opiate overdose SIRS CKD Hyperkalemia - Patient is intubated and mechanically ventilated because she can take it off her secretions - 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
[2016-03-24] MEDS ORDERED: NACL 0.9% 1000 ML 1,000 ML IV ONE ×3 (01:56→08:53)
[2016-03-24 06:01] LABS: Basophils % (Auto) 0.4 % (0.0-1.8); Eosinophils % (Auto) 0.7 % (0.0-4.3); Hematocrit 23.4 % (30.3-42.9); Hemoglobin 7.8 gm/dl (10.1-14.3); Mean Corpuscular HGB Conc 33 % (30-34); Mean Corpuscular Hemoglobin 32 pg (28-32); Platelet Count 139 K/mm3 (140-440); Red Blood Count 2.42 M/mm3 (3.65-5.03); Red Cell Distribution Width 14.7 % (13.2-15.2); White Blood Count 5.1 K/mm3 (4.5-11.0)
[2016-03-24 06:04] LABS: Mean Corpuscular Volume 99 fl (79-97)
[2016-03-24] MEDS: HEPARIN SUB-Q SCH ×3 (06:14→21:37)
[2016-03-24 06:18] LABS: BUN/Creatinine Ratio 22.17; Chloride 112.3 mmol/L (98-107); Potassium 4.8 mmol/L (3.6-5.0)
--- NOTE | 2016-03-24 08:28 | Progress Note ---
Assessment and Plan Assessment and plan: --Metabolic encephalopathy: secondary to drug overdose intentional versus accidental Neurochecks supportive care --Acute respiratory failure; orally intubated on ventilatory support Continue nebulizers, IV steroids, pulmonary consultation Empiric antibiotics, wean as tolerated and extubate --Opiate overdose; accidental Closely monitor --Hypotension/shock Fluid boluses, consider pressors as needed Rule out septic shock --SIRS; blood cultures urine cultures Lactic acid level within normal limits, empiric antibiotics ID evaluation if needed --CKD acute on chronic kidney disease Probably secondary to vasomotor nephropathy IV hydration, closely monitor renal function, avoid nephrotoxic medication Consider nephrology evaluation if needed --Metabolic acidosis secondary to acute renal failure Lactate levels within normal limits, IV fluids and replacement therapy as needed --Hyperkalemia; received treatment Closely monitor electrolytes and correct as needed --Acute exacerbation of COPD Managed with oxygen ventilatory support, nebulizers IVC darts IV antibiotics inhalation steroids and supportive care --Anemia, hemoglobin of 7.8,no external evidence of bleeding Patient's baseline hemoglobin is 10-11 closely monitor H&H and transfuse as needed, stool for occult blood --DVT prophylaxis; with Lovenox Dobbhoff feeds as tolerated --D/C planning per case management when medically stable Pulmonary consultation noted and appreciated Nephrology consultation if needed ID consultation if needed --Patient full CODE STATUS Patient's condition treatment plan discussed in detail with the patient's family her nurse as well as the case management Critical care time 33 minutes The high probability of a clinically significant, sudden or life threatening deterioration of the [respiratory, neurology , hematological and renal, ] system(s) required my full and direct attention, intervention and personal management. The aggregate critical care time was [33] minutes. This time is in addition to time spent performing reported procedures but includes the following : [x] Data Review and interpretation [x] Patient assessment and monitoring of vital signs [x] Documentation [x] Medication orders and management History Interval history: Patient Seen and evaluated in ICU this morning medical records reviewed Admitted with altered level of consciousness respiratory failure status post intubation on ventilatory support Patient is slightly sedated, opening her eyes to verbal commands Hypotensive, received fluid bolus with mild improvement Vital signs reviewed Hospitalist Physical - Constitutional Vitals: Temp Pulse Resp BP Pulse Ox 99.5 F 88 17 92/45 98 03/24/16 07:14 03/24/16 07:40 03/24/16 07:00 03/24/16 07:40 03/24/16 07:40 General appearance: Present: no acute distress, well-nourished, obese, other ( intubated aND SEDATED) - EENT Eyes: Present: PERRL, EOM intact ENT: other (Ett and dobhoff in place) - Neck Neck: Present: supple, normal ROM - Respiratory Respiratory effort: normal Respiratory: bilateral: diminished, negative: rales, rhonchi, wheezing - Cardiovascular Rhythm: regular Heart Sounds: Present: S1 & S2 - Extremities Extremities: no ischemia, pulses intact, pulses symmetrical Peripheral Pulses: within normal limits - Abdominal General gastrointestinal: soft, non-tender, non-distended, normal bowel sounds - Integumentary Integumentary: Present: clear, warm - Psychiatric Psychiatric: appropriate mood/affect - Neurologic Neurologic: moves all extremities Results - Labs CBC & Chem 7: 03/25/16 04:30 03/25/16 04:30 Labs: Laboratory Last Values WBC 5.1 K/mm3 (4.5-11.0) 03/24/16 05:12 RBC 2.42 M/mm3 (3.65-5.03) L 03/24/16 05:12 Hgb 7.8 gm/dl (10.1-14.3) L 03/24/16 05:12 Hct 23.4 % (30.3-42.9) L 03/24/16 05:12 MCV 99 fl (79-97) H 03/24/16 05:12 MCH 32 pg (28-32) 03/24/16 05:12 MCHC 33 % (30-34) 03/24/16 05:12 RDW 14.7 % (13.2-15.2) 03/24/16 05:12 Plt Count 139 K/mm3 (140-440) L 03/24/16 05:12 Lymph % (Auto) 17.5 % (13.4-35.0) 03/24/16 05:12 [place] % (Auto) 10.4 % (0.0-7.3) H 03/24/16 05:12 Eos % (Auto) 0.7 % (0.0-4.3) 03/24/16 05:12 Baso % (Auto) 0.4 % (0.0-1.8) 03/24/16 05:12 Lymph # 0.9 K/mm3 (1.2-5.4) L 03/24/16 05:12 [place] # 0.5 K/mm3 (0.0-0.8) 03/24/16 05:12 Eos # 0.0 K/mm3 (0.0-0.4) 03/24/16 05:12 Baso # 0.0 K/mm3 (0.0-0.1) 03/24/16 05:12 Add Manual Diff Complete 03/23/16 18:14 Total Counted 100 03/23/16 18:14 Seg Neutrophils % 71.0 % (40.0-70.0) H 03/24/16 05:12 Seg Neuts % (Manual) 52.0 % (40.0-70.0) 03/23/16 18:14 Band Neutrophils % 32.0 % 03/23/16 18:14 Lymphocytes % (Manual) 3.0 % (13.4-35.0) L 03/23/16 18:14 Reactive Lymphs % (Man) 0 % 03/23/16 18:14 Monocytes % (Manual) 13.0 % (0.0-7.3) H 03/23/16 18:14 Eosinophils % (Manual) 0 % (0.0-4.3) 03/23/16 18:14 Basophils % (Manual) 0 % (0.0-1.8) 03/23/16 18:14 Metamyelocytes % 0 % 03/23/16 18:14 Myelocytes % 0 % 03/23/16 18:14 Promyelocytes % 0 % 03/23/16 18:14 Blast Cells % 0 % 03/23/16 18:14 Nucleated RBC % Not Reportable 03/23/16 18:14 Seg Neutrophils # 3.6 K/mm3 (1.8-7.7) 03/24/16 05:12 Seg Neutrophils # Man 6.1 K/mm3 (1.8-7.7) 03/23/16 18:14 Band Neutrophils # 3.7 K/mm3 03/23/16 18:14 Lymphocytes # (Manual) 0.4 K/mm3 (1.2-5.4) L 03/23/16 18:14 Abs React Lymphs (Man) 0.0 K/mm3 03/23/16 18:14 Monocytes # (Manual) 1.5 K/mm3 (0.0-0.8) H 03/23/16 18:14 Eosinophils # (Manual) 0.0 K/mm3 (0.0-0.4) 03/23/16 18:14 Basophils # (Manual) 0.0 K/mm3 (0.0-0.1) 03/23/16 18:14 Metamyelocytes # 0.0 K/mm3 03/23/16 18:14 Myelocytes # 0.0 K/mm3 03/23/16 18:14 Promyelocytes # 0.0 K/mm3 03/23/16 18:14 Blast Cells # 0.0 K/mm3 03/23/16 18:14 WBC Morphology Not Reportable 03/23/16 18:14 Hypersegmented Neuts Not Reportable 03/23/16 18:14 Hyposegmented Neuts Not Reportable 03/23/16 18:14 Hypogranular Neuts Not Reportable 03/23/16 18:14 Smudge Cells Not Reportable 03/23/16 18:14 Toxic Granulation Not Reportable 03/23/16 18:14 Toxic Vacuolation Not Reportable 03/23/16 18:14 Dohle Bodies Not Reportable 03/23/16 18:14 Pelger-Huet Anomaly Not Reportable 03/23/16 18:14 Sameer Rods Not Reportable 03/23/16 18:14 Platelet Estimate Consistent w auto 03/23/16 18:14 Clumped Platelets Not Reportable 03/23/16 18:14 Plt Clumps, EDTA Not Reportable 03/23/16 18:14 Large Platelets Few 03/23/16 18:14 Giant Platelets Not Reportable 03/23/16 18:14 Platelet Satelliting Not Reportable 03/23/16 18:14 Plt Morphology Comment Not Reportable 03/23/16 18:14 RBC Morphology Not Reportable 03/23/16 18:14 Dimorphic RBCs Not Reportable 03/23/16 18:14 Polychromasia Not Reportable 03/23/16 18:14 Hypochromasia Not Reportable 03/23/16 18:14 Poikilocytosis Not Reportable 03/23/16 18:14 Anisocytosis 1+ 03/23/16 18:14 Microcytosis Not Reportable 03/23/16 18:14 Macrocytosis Not Reportable 03/23/16 18:14 Spherocytes Not Reportable 03/23/16 18:14 Pappenheimer Bodies Not Reportable 03/23/16 18:14 Sickle Cells Not Reportable 03/23/16 18:14 Target Cells Not Reportable 03/23/16 18:14 Tear Drop Cells Not Reportable 03/23/16 18:14 Ovalocytes 1+ 03/23/16 18:14 Helmet Cells Not Reportable 03/23/16 18:14 Steve-Renova Bodies Not Reportable 03/23/16 18:14 [place] Rings Not Reportable 03/23/16 18:14 Ryan Cells Not Reportable 03/23/16 18:14 Bite Cells Not Reportable 03/23/16 18:14 Crenated Cell 3+ 03/23/16 18:14 Elliptocytes Not Reportable 03/23/16 18:14 Acanthocytes (Spur) Not Reportable 03/23/16 18:14 Rouleaux Not Reportable 03/23/16 18:14 Hemoglobin C Crystals Not Reportable 03/23/16 18:14 Schistocytes Not Reportable 03/23/16 18:14 Malaria parasites Not Reportable 03/23/16 18:14 Konstantin Bodies Not Reportable 03/23/16 18:14 Hem Pathologist Commnt No 03/23/16 18:14 PT 16.8 Sec. (12.2-14.9) H 03/23/16 18:56 INR 1.37 (0.87-1.13) H 03/23/16 18:56 APTT 28.7 Sec. (24.2-36.6) 03/23/16 18:56 POC ABG pH 7.263 (7.35-7.45) L 03/23/16 19:19 POC ABG pCO2 35.2 (35-45) 03/23/16 19:19 POC ABG pO2 120 (80-105) H 03/23/16 19:19 POC ABG HCO3 15.9 03/23/16 19:19 POC ABG Total CO2 17 03/23/16 19:19 POC ABG O2 Sat 98 03/23/16 19:19 POC ABG Base Excess -11 03/23/16 19:19 FiO2 50 % 03/23/16 19:19 Sodium 144 mmol/L (137-145) D 03/24/16 05:12 Potassium 4.8 mmol/L (3.6-5.0) D 03/24/16 05:12 Chloride 112.3 mmol/L (98-107) H 03/24/16 05:12 Carbon Dioxide 17 mmol/L (22-30) L 03/24/16 05:12 Anion Gap 20 mmol/L 03/24/16 05:12 BUN 51 mg/dL (7-17) H 03/24/16 05:12 Creatinine 2.3 mg/dL (0.7-1.2) H 03/24/16 05:12 Estimated GFR 21 ml/min 03/24/16 05:12 BUN/Creatinine Ratio 22.17 % 03/24/16 05:12 Glucose 99 mg/dL (65-100) 03/24/16 05:12 POC Glucose 107 (70-105) H 03/24/16 05:50 Lactic Acid 1.4 mmol/L (0.7-2.0) 03/23/16 20:10 Calcium 7.0 mg/dL (8.4-10.2) L 03/24/16 05:12 Magnesium 1.9 mg/dL (1.7-2.3) 03/23/16 17:33 Total Bilirubin 0.4 mg/dL (0.1-1.2) 03/23/16 17:33 AST 27 units/L (5-40) 03/23/16 17:33 ALT 17 units/L (7-56) 03/23/16 17:33 Alkaline Phosphatase 117 units/L (35-129) 03/23/16 17:33 Total Protein 6.5 g/dL (6.3-8.2) 03/23/16 17:33 Albumin 2.8 g/dL (3.9-5) L 03/23/16 17:33 Albumin/Globulin Ratio 0.8 % 03/23/16 17:33 TSH 0.264 mlU/mL (0.270-4.200) L 03/23/16 17:33 Urine Color Yellow (Yellow) 03/23/16 20:13 Urine Turbidity Slightly-cloudy (Clear) 03/23/16 20:13 Urine pH 5.0 (5.0-7.0) 03/23/16 20:13 Ur Specific [place] 1.016 (1.003-1.030) 03/23/16 20:13 Urine Protein 100 mg/dl mg/dL (Negative) 03/23/16 20:13 Urine Glucose (UA) Neg mg/dL (Negative) 03/23/16 20:13 Urine Ketones Neg mg/dL (Negative) 03/23/16 20:13 Urine Blood Mod (Negative) 03/23/16 20:13 Urine Nitrite Neg (Negative) 03/23/16 20:13 Urine Bilirubin Neg (Negative) 03/23/16 20:13 Urine Urobilinogen < 2.0 mg/dL (<2.0) 03/23/16 20:13 Ur Leukocyte Esterase Neg (Negative) 03/23/16 20:13 Urine WBC (Auto) < 1.0 /HPF (0.0-6.0) 03/23/16 20:13 Urine RBC (Auto) < 1.0 /HPF (0.0-6.0) 03/23/16 20:13 U Epithel Cells (Auto) < 1.0 /HPF (0-13.0) 03/23/16 20:13 Urine Mucus Few /HPF 03/23/16 20:13 Salicylates 0.6 mg/dL (2.8-20.0) L 03/23/16 17:33 Urine Opiates Screen Presumptive positive 03/23/16 20:13 Urine Methadone Screen Presumptive negative 03/23/16 20:13 Acetaminophen < 15.0 ug/mL (10.0-30.0) 03/23/16 17:33 Ur Barbiturates Screen Presumptive negative 03/23/16 20:13 Ur Phencyclidine Scrn Presumptive negative 03/23/16 20:13 Ur Amphetamines Screen Presumptive negative 03/23/16 20:13 U Benzodiazepines Scrn Presumptive negative 03/23/16 20:13 Urine Cocaine Screen Presumptive negative 03/23/16 20:13 U Marijuana (THC) Screen Presumptive negative 03/23/16 20:13 Drugs of Abuse Note Disclamer 03/23/16 20:13 Plasma/Serum Alcohol < 0.01 gm% (0-0.07) 03/23/16 17:45 Blood Type B NEGATIVE 01/13/17 19:07 Antibody Screen Negative 03/23/16 19:07
[2016-03-24] MEDS ORDERED: NACL 0.9% 1000 ML 1,000 ML ONE (08:40)
--- NOTE | 2016-03-24 09:27 | XRay Report ---
AP CHEST :03/23/16 19:22 CLINICAL: Post intubation. COMPARISON:Same day at 17:26 FINDINGS: An endotracheal tube has been placed and is in satisfactory position. The heart is normal size. Central vascular congestion. Bilateral diffuse interstitial opacities are unchanged compared to the prior exam. No pulmonary consolidation. No pleural effusion. No pneumothorax. IMPRESSION: Satisfactory position of the endotracheal tube.
--- NOTE | 2016-03-24 09:30 | XRay Report ---
AP CHEST :03/23/16 17:26 CLINICAL: Altered mental status. COMPARISON:02/12/16 FINDINGS: The heart is normal size. Mild central vascular congestion. Diffuse bilateral multilobar reticular interstitial opacities which are more prominent than on the prior exam. No pulmonary consolidation. IMPRESSION: New diffuse interstitial pulmonary edema versus pneumonia.
[2016-03-24] MEDS ORDERED: PROTONIX IV SCH (10:00)
[2016-03-24] MEDS: NACL 0.9% 1000 ML 1,000 ML IV SCH ×3 (10:21→23:34)
[2016-03-24] MEDS: PEPCID IV SCH ×2 (10:21→21:36)
--- NOTE | 2016-03-24 10:23 | XRay Report ---
KUB: 03/24/16 08:58:00 CLINICAL: Nasogastric tube placement. FINDINGS: A nasogastric tube tip is in the stomach in satisfactory position in the proximal stomach.Normal gas pattern. IMPRESSION: Satisfactory position of the nasogastric tube.
[2016-03-24] MEDS: PLAVIX PO SCH (10:48)
--- NOTE | 2016-03-24 11:02 | Consultation ---
History of Present Illness Consult date: 03/24/16 Reason for consult: COPD, other (Drug overdose and hypotension.) History of present illness: This is 65 year old white female admitted with drug overdose, altered mental status and hypotension.Patient intubated and placed on mechanical ventilation. Patient still hypotensive. Patient given fluid bolus x3. Patient B/P still running low. May have to vasopressors, if blood pressure does not come up.Patient has history of hypertension, chronic kidney disease , DM and COPD.Patient has history of smoking. Current smoking status not known. No history of alcohol or drug abuse. Allergic to sulfa.Drug screen positive for Opiates. Past History Past Medical History: COPD, diabetes, hypertension, hyperlipidemia, renal failure Past Surgical History: Other (couldn't obtained because of altered mental status ) Social history: other (couldn't obtained because of altered mental status) Family history: other (couldn't obtained because of altered mental status) Medications and Allergies Allergies Allergy/AdvReac Type Severity Reaction Status Date / Time Sulfa (Sulfonamide Allergy Rash Verified 02/25/16 19:43 Antibiotics) Home Medications Medication Instructions Recorded Confirmed Last Taken Type Gabapentin 600 cap PO TID 11/13/13 03/23/16 03/23/16 History AtorvaSTATin [Lipitor] 40 mg PO DAILY #30 tablet 06/02/15 03/23/16 03/23/16 Rx metFORMIN [Glucophage] 1 tab PO BID #60 tablet 06/02/15 03/23/16 03/23/16 Rx Baclofen [Lioresal] 10 mg PO TID 06/08/15 03/23/16 03/23/16 History Clopidogrel [Plavix] 75 mg PO QDAY 06/08/15 03/23/16 03/23/16 History Lumigan 0.01% 1 drop OU HS 02/26/16 03/23/16 03/23/16 History HYDROcodone/APAP 10-325 [[place] 1 each PO Q6H PRN #6 tablet 03/02/16 03/23/16 Rx 10-325 mg TAB] Lisinopril [Zestril TAB] 20 mg PO QDAY #30 tablet 03/02/16 03/23/16 03/23/16 Rx Nicotine [Habitrol] 21 mg TD QDAY patch 03/02/16 03/23/16 03/23/16 Rx hydrALAZINE [Apresoline TAB] 25 mg PO Q12HR tablet 03/02/16 03/23/16 03/23/16 Rx Active Meds: Active Medications Albuterol/Ipratropium (Duoneb 0.5 Mg-3 Mg/3 Ml Soln) 1 ampul IH QIDRT [facility] Atorvastatin Calcium (Lipitor) 40 mg PO DAILY [facility] Last Admin: 03/24/16 10:48 Dose: 40 mg Clopidogrel Bisulfate (Plavix) 75 mg PO QDAY [facility] Last Admin: 03/24/16 10:48 Dose: 75 mg Famotidine (Pepcid) 10 mg IV BID [facility] Last Admin: 03/24/16 10:21 Dose: 10 mg Gabapentin (Neurontin) 600 mg PO TID [facility] Heparin Sodium (Porcine) (Heparin) 5,000 unit SUB-Q Q8HR [facility] Last Admin: 03/24/16 06:14 Dose: 5,000 unit Piperacillin Sod/Tazobactam Sod (Zosyn/Ns 2.25 Gm/50ml) 50 mls @ 100 mls/hr IV Q6HR [facility] Last Admin: 03/24/16 05:40 Dose: 100 mls/hr Sodium Chloride (Nacl 0.9% 1000 Ml) 1,000 mls @ 100 mls/hr IV DIRECT [facility] Last Admin: 03/24/16 10:21 Dose: 100 mls/hr Insulin Aspart (Novolog) 0 units SUB-Q Q6HR [facility] PRN Reason: Protocol Miscellaneous Medication (Lumigan 0.01%) 1 drop OU HS [facility] Physical Examination Vital signs: Vital Signs Pulse Ox 71 L 03/23/16 16:16 General appearance: lethargic, asleep, other (On mechanical ventilation) Eyes: non-icteric ENT: oropharynx moist Neck: supple, no JVD Ascultation: Bilateral: diminished breath sounds Cardiovascular: regular rate and rhythm Gastrointestinal: normoactive bowel sounds, soft, non-tender Integumentary: normal Extremities: no cyanosis, no edema Musculoskeletal: no deformities Gait: other (Can not evaluate at this time.) unable to assess other (Can not assess at this time.) Results - Laboratory Findings CBC and BMP: 03/24/16 05:12 03/24/16 05:12 ABG POC ABG pH 7.263 (7.35-7.45) L 03/23/16 19:19 POC ABG pCO2 35.2 (35-45) 03/23/16 19:19 POC ABG pO2 120 (80-105) H 03/23/16 19:19 POC ABG HCO3 15.9 03/23/16 19:19 POC ABG Total CO2 17 03/23/16 19:19 POC ABG O2 Sat 98 03/23/16 19:19 PT/INR, D-dimer PT 16.8 Sec. (12.2-14.9) H 03/23/16 18:56 INR 1.37 (0.87-1.13) H 03/23/16 18:56 Abnormal lab findings: Abnormal Labs 03/24/16 03/24/16 03/24/16 00:10 05:12 05:12 RBC 2.42 L Hgb 7.8 L Hct 23.4 L MCV 99 H Plt Count 139 L [place] % (Auto) 10.4 H Lymph # 0.9 L Seg Neutrophils % 71.0 H Chloride 112.3 H Carbon Dioxide 17 L BUN 51 H Creatinine 2.3 H POC Glucose 144 H Calcium 7.0 L 03/24/16 05:50 RBC Hgb Hct MCV Plt Count [place] % (Auto) Lymph # Seg Neutrophils % Chloride Carbon Dioxide BUN Creatinine POC Glucose 107 H Calcium - Diagnostic Findings Chest x-ray: report reviewed (ET tube in place. Mild pulmonary vascular congestion.), image reviewed Assessment and Plan This is 65 year old white female admitted with drug overdose, altered mental status and hypotension.Patient intubated and placed on mechanical ventilation. Patient still hypotensive. Patient given fluid bolus x3. Patient B/P still running low. May have to vasopressors, if blood pressure does not come up.Patient has history of hypertension, chronic kidney disease , DM and COPD.Patient has history of smoking. Current smoking status not known. No history of alcohol or drug abuse. Allergic to sulfa.Drug screen positive for Opiates. I spent critical care time of 1 hour on this patient to get history, review the chart, review chest xray and Lab work, talking to the nursing and resiratory staff and work out plan of treatment. Talk to the patients friend who called 911 and also who helped her to bring her to the emergency room. - Patient Problems (1) Respiratory failure Current Visit: Yes Status: Acute Qualifiers: Chronicity: acute Respiratory failure complication: hypoxia Qualified Code(s): J96.01 - Acute respiratory failure with hypoxia Plan to address problem: Patient is on mechanical ventilation , Assist control rate 18, Tidal volume 500 , FIO2 35%, PEEP 5 Albuterol/atrovent aerosol treatments. Continue S/C Heparin. Continue Famotidine. (2) Accidental drug overdose Current Visit: No Status: Acute Plan to address problem: Patient is on I/V fluids normal saline. (3) Acute renal failure Current Visit: Yes Status: Acute Qualifiers: Acute renal failure type: unspecified Qualified Code(s): N17.9 - Acute kidney failure, unspecified Plan to address problem: Recommend to consult Nephrology. (4) COPD (chronic obstructive pulmonary disease) Current Visit: No Status: Chronic Plan to address problem: Albuterol/atrovent aerosol treatments q 6 hours. (5) Hypotension Current Visit: Yes Status: Acute Plan to address problem: Patient receiving Fluid Boluses. If blood pressure does not come up may start vasopressors. (6) Metabolic acidosis Current Visit: Yes Status: Acute Plan to address problem: Obtaining Lactate leve. Supplementing Bicarb.
--- NOTE | 2016-03-24 11:03 | XRay Report ---
AP CHEST: 03/24/16 10:40 CLINICAL: PICC line insertion. FINDINGS: A right PICC line has been inserted and the PICC line tip is in the lower SVC. The endotracheal tube is satisfactory. The nasogastric tube/feeding tube tip is below the diaphragm and not imaged. Increased central vascular congestion compared to the previous exam. No pneumothorax. IMPRESSION: Satisfactory right PICC line placement.
[2016-03-24] MEDS ORDERED: SODIUM BICARBONATE IV ONE ×2 (11:15→12:00)
[2016-03-24] MEDS ORDERED: LEVOPHED DRIP 4 MG/NS 250 ML 250 ML IV SCH (12:00)
[2016-03-24] MEDS: NOVOLOG SUB-Q SCH ×2 (12:31→17:25)
[2016-03-24] MEDS: NEURONTIN PO SCH ×2 (14:12→21:36)
[2016-03-24] MEDS: DUONEB 0.5 MG-3 MG/3 ML SOLN IH SCH ×2 (14:48→20:43)
[2016-03-25 06:25] LABS: Mean Corpuscular HGB Conc 32 % (30-34); Mean Corpuscular Hemoglobin 31 pg (28-32); Mean Corpuscular Volume 98 fl (79-97); Platelet Count 154 K/mm3 (140-440); Red Blood Count 2.55 M/mm3 (3.65-5.03); Red Cell Distribution Width 15.6 % (13.2-15.2); White Blood Count 7.4 K/mm3 (4.5-11.0)
[2016-03-25 06:50] LABS: Alanine Aminotransferase 12 units/L (7-56); Albumin 2.4 g/dL (3.9-5); Albumin/Globulin Ratio 0.9 %; Alkaline Phosphatase 86 units/L (35-129); BUN/Creatinine Ratio 22.35; Bilirubin,Direct < 0.2 mg/dL (0-0.2); Bilirubin,Total 0.2 mg/dL (0.1-1.2); Blood Urea Nitrogen 38 mg/dL (7-17); Calcium 7.1 mg/dL (8.4-10.2); Carbon Dioxide 14 mmol/L (22-30); Chloride 116.9 mmol/L (98-107); Glucose 78 mg/dL (65-100); Magnesium 1.7 mg/dL (1.7-2.3); Phosphorous 3.8 mg/dL (2.5-4.5); Potassium 4.6 mmol/L (3.6-5.0); Sodium 148 mmol/L (137-145)
[2016-03-25 06:51] LABS: Anion Gap 22 mmol/L
[2016-03-25] MEDS: HEPARIN SUB-Q SCH ×3 (06:55→21:13)
[2016-03-25 06:56] LABS: ISTAT Base Excess -14; ISTAT HCO3 12.9; ISTAT PCO2 27.2 (35-45); ISTAT PH 7.285 (7.35-7.45); ISTAT PO2 112 (80-105); ISTAT SO2 98; ISTAT TCO2 14
[2016-03-25] MEDS: NOVOLOG SUB-Q SCH ×3 (06:58→12:19)
[2016-03-25] MEDS: XALATAN 0.005% OU SCH ×2 (07:04→21:23)
[2016-03-25] MEDS: NEURONTIN PO SCH ×3 (07:41→21:13)
[2016-03-25] MEDS ORDERED: SODIUM BICARBONATE IV ONE ×3 (08:00→13:00)
[2016-03-25] MEDS ORDERED: MAGNESIUM SULFATE 2GM/50ML 50 ML IV ONE (08:00)
[2016-03-25 08:36] LABS: Basophils % (Manual) 0 % (0.0-1.8); Blastocytes % (Manual) 0 %
[2016-03-25 08:37] LABS: Diff Status Complete; Ovalocytes Few; Platelet Estimate Appears Decreased; Poikilocytosis Few
[2016-03-25] MEDS: DUONEB 0.5 MG-3 MG/3 ML SOLN IH SCH ×4 (08:50→20:43)
[2016-03-25] MEDS: PLAVIX PO SCH (09:11)
[2016-03-25] MEDS: PEPCID PO SCH ×2 (09:11→21:13)
[2016-03-25] MEDS: NACL 0.9% 1000 ML 1,000 ML IV SCH (09:12)
[2016-03-25 11:31] LABS: ISTAT Base Excess -14; ISTAT HCO3 12.9; ISTAT PCO2 28.6 (35-45); ISTAT PH 7.261 (7.35-7.45); ISTAT PO2 92 (80-105); ISTAT SO2 96; ISTAT TCO2 14
[2016-03-25 11:55] LABS: ISTAT Base Excess -11; ISTAT HCO3 15.8; ISTAT PCO2 33.6 (35-45); ISTAT PH 7.279 (7.35-7.45); ISTAT PO2 112 (80-105); ISTAT SO2 98; ISTAT TCO2 17
--- NOTE | 2016-03-25 13:46 | Progress Note ---
Assessment and Plan This is 65 year old white female admitted with drug overdose, altered mental status and hypotension.Patient intubated and placed on mechanical ventilation. Patient still hypotensive. Patient given fluid bolus x3. Patient B/P still running low. May have to vasopressors, if blood pressure does not come up.Patient has history of hypertension, chronic kidney disease , DM and COPD.Patient has history of smoking. Current smoking status not known. No history of alcohol or drug abuse. Allergic to sulfa.Drug screen positive for Opiates. I spent critical care time of 1 hour on this patient to get history, review the chart, review chest xray and Lab work, talking to the nursing and resiratory staff and work out plan of treatment. Talk to the patients friend who called 911 and also who helped her to bring her to the emergency room. 03/25/16 Patient agitating. Still on mechanical ventilation. Patient blood gases showing severe metabolic acidosis. Patient given Ampule of bicarb and repeated blood gases, patient still acidotic.Starting on Bicarb drip. Because of severe acidosis, patient is not candidate for extubation. In view of her agitation starting on fentynyl drip. - Patient Problems (1) Respiratory failure Current Visit: Yes Status: Acute Qualifiers: Chronicity: acute Respiratory failure complication: hypoxia Qualified Code(s): J96.01 - Acute respiratory failure with hypoxia Plan to address problem: Patient is on mechanical ventilation , Assist control rate 20, Tidal volume 500 , FIO2 35%, PEEP 5 Albuterol/atrovent aerosol treatments. Continue S/C Heparin. Continue Famotidine. (2) Accidental drug overdose Current Visit: No Status: Acute Plan to address problem: Patient is on I/V fluids normal saline. (3) Acute renal failure Current Visit: Yes Status: Acute Qualifiers: Acute renal failure type: unspecified Qualified Code(s): N17.9 - Acute kidney failure, unspecified Plan to address problem: Recommend to consult Nephrology. (4) COPD (chronic obstructive pulmonary disease) Current Visit: No Status: Chronic Plan to address problem: Albuterol/atrovent aerosol treatments q 6 hours. (5) Hypotension Current Visit: Yes Status: Acute Plan to address problem: Patient receiving Fluid Boluses. If blood pressure does not come up may start vasopressors. 03/25/16. Patients blood pressure improved. Patient off the pressors. (6) Metabolic acidosis Current Visit: Yes Status: Acute Plan to address problem: Obtaining Lactate leve. Supplementing Bicarb. 03/25/16 Patient still acidotic. Starting Bicarb drip. Subjective Date of service: 03/25/16 Interval history: Patient agitating. Still on mechanical ventilation. Patient blood gases showing severe metabolic acidosis. Patient given Ampule of bicarb and repeated blood gases, patient still acidotic.Starting on Bicarb drip. Because of severe acidosis, patient is not candidate for extubation. In view of her agitation starting on fentynyl drip. Objective Vital Signs - 12hr 03/25/16 03/25/16 03/25/16 01:45 02:00 02:15 Temperature Pulse Rate 89 89 89 Pulse Rate [ Bilateral] Pulse Rate [ From Monitor] Respiratory 18 19 19 Rate Respiratory Rate [Bilateral ] Respiratory Rate [back] Blood Pressure 103/44 112/48 116/47 O2 Sat by Pulse 100 98 99 Oximetry 03/25/16 03/25/16 03/25/16 02:30 02:33 02:45 Temperature Pulse Rate 89 91 H 87 Pulse Rate [ Bilateral] Pulse Rate [ From Monitor] Respiratory 20 20 18 Rate Respiratory Rate [Bilateral ] Respiratory Rate [back] Blood Pressure 114/49 114/49 107/47 O2 Sat by Pulse 99 98 98 Oximetry 03/25/16 03/25/16 03/25/16 03:00 03:15 03:33 Temperature Pulse Rate 87 103 H 88 Pulse Rate [ Bilateral] Pulse Rate [ From Monitor] Respiratory 18 33 H 19 Rate Respiratory Rate [Bilateral ] Respiratory Rate [back] Blood Pressure 108/45 108/45 114/49 O2 Sat by Pulse 98 99 98 Oximetry 03/25/16 03/25/16 03/25/16 03:45 04:00 04:07 Temperature 100.1 F H Pulse Rate 87 87 87 Pulse Rate [ Bilateral] Pulse Rate [ 90 From Monitor] Respiratory 17 18 Rate Respiratory Rate [Bilateral ] Respiratory Rate [back] Blood Pressure 112/47 111/45 112/47 O2 Sat by Pulse 99 100 98 Oximetry 03/25/16 03/25/16 03/25/16 04:15 04:30 04:45 Temperature Pulse Rate 86 85 88 Pulse Rate [ Bilateral] Pulse Rate [ From Monitor] Respiratory 18 18 18 Rate Respiratory Rate [Bilateral ] Respiratory Rate [back] Blood Pressure 106/48 110/48 116/49 O2 Sat by Pulse 98 98 100 Oximetry 03/25/16 03/25/16 03/25/16 05:00 05:15 05:30 Temperature Pulse Rate 89 90 86 Pulse Rate [ Bilateral] Pulse Rate [ From Monitor] Respiratory 19 15 18 Rate Respiratory Rate [Bilateral ] Respiratory Rate [back] Blood Pressure 124/56 124/56 128/56 O2 Sat by Pulse 98 98 98 Oximetry 03/25/16 03/25/16 03/25/16 05:45 05:53 06:00 Temperature Pulse Rate 86 88 88 Pulse Rate [ Bilateral] Pulse Rate [ From Monitor] Respiratory 18 19 18 Rate Respiratory Rate [Bilateral ] Respiratory Rate [back] Blood Pressure 126/54 126/54 134/58 O2 Sat by Pulse 98 100 98 Oximetry 03/25/16 03/25/16 03/25/16 06:15 06:30 06:45 Temperature Pulse Rate 94 H 91 H 93 H Pulse Rate [ Bilateral] Pulse Rate [ From Monitor] Respiratory 26 H 19 18 Rate Respiratory Rate [Bilateral ] Respiratory Rate [back] Blood Pressure 142/64 130/59 128/58 O2 Sat by Pulse 99 99 Oximetry 03/25/16 03/25/16 03/25/16 06:49 07:01 07:15 Temperature Pulse Rate 99 H 97 H 92 H Pulse Rate [ Bilateral] Pulse Rate [ From Monitor] Respiratory 19 20 20 Rate Respiratory Rate [Bilateral ] Respiratory Rate [back] Blood Pressure 128/58 121/58 127/57 O2 Sat by Pulse 100 84 100 Oximetry 03/25/16 03/25/16 03/25/16 07:30 07:39 07:43 Temperature 98.7 F Pulse Rate 103 H 94 H Pulse Rate [ Bilateral] Pulse Rate [ From Monitor] Respiratory 28 H 24 Rate Respiratory Rate [Bilateral ] Respiratory Rate [back] Blood Pressure 137/73 137/73 O2 Sat by Pulse 100 100 Oximetry 03/25/16 03/25/16 03/25/16 07:45 08:00 08:11 Temperature Pulse Rate 94 H 97 H 94 H Pulse Rate [ Bilateral] Pulse Rate [ From Monitor] Respiratory 21 20 20 Rate Respiratory Rate [Bilateral ] Respiratory Rate [back] Blood Pressure 133/65 137/65 137/65 O2 Sat by Pulse 100 100 100 Oximetry 03/25/16 03/25/16 03/25/16 08:15 08:31 08:45 Temperature Pulse Rate 93 H 91 H 95 H Pulse Rate [ Bilateral] Pulse Rate [ From Monitor] Respiratory 19 20 18 Rate Respiratory Rate [Bilateral ] Respiratory Rate [back] Blood Pressure 137/65 137/65 137/65 O2 Sat by Pulse 100 100 100 Oximetry 03/25/16 03/25/16 03/25/16 08:46 08:51 09:00 Temperature Pulse Rate 95 H Pulse Rate [ 96 H 97 H Bilateral] Pulse Rate [ From Monitor] Respiratory Rate Respiratory 20 23 Rate [Bilateral ] Respiratory Rate [back] Blood Pressure 137/65 O2 Sat by Pulse 100 Oximetry 03/25/16 03/25/16 03/25/16 09:01 09:15 09:31 Temperature Pulse Rate 98 H 99 H 99 H Pulse Rate [ Bilateral] Pulse Rate [ From Monitor] Respiratory 22 27 H 22 Rate Respiratory Rate [Bilateral ] Respiratory Rate [back] Blood Pressure 155/69 155/69 155/69 O2 Sat by Pulse 100 99 99 Oximetry 03/25/16 03/25/16 03/25/16 09:45 10:00 10:15 Temperature Pulse Rate 100 H 97 H 99 H Pulse Rate [ Bilateral] Pulse Rate [ From Monitor] Respiratory 24 23 28 H Rate Respiratory Rate [Bilateral ] Respiratory 18 Rate [back] Blood Pressure 155/69 136/59 136/59 O2 Sat by Pulse 100 98 98 Oximetry 03/25/16 03/25/16 03/25/16 10:17 10:31 10:45 Temperature Pulse Rate 101 H 94 H 94 H Pulse Rate [ Bilateral] Pulse Rate [ From Monitor] Respiratory 20 20 Rate Respiratory Rate [Bilateral ] Respiratory Rate [back] Blood Pressure 136/59 136/59 136/59 O2 Sat by Pulse 97 99 98 Oximetry 03/25/16 03/25/16 03/25/16 11:00 11:15 11:31 Temperature Pulse Rate 93 H 91 H 89 Pulse Rate [ Bilateral] Pulse Rate [ From Monitor] Respiratory 21 21 20 Rate Respiratory Rate [Bilateral ] Respiratory Rate [back] Blood Pressure 119/51 119/51 119/51 O2 Sat by Pulse 99 99 99 Oximetry 03/25/16 03/25/16 03/25/16 11:45 12:00 12:01 Temperature Pulse Rate 111 H 103 H Pulse Rate [ Bilateral] Pulse Rate [ From Monitor] Respiratory 34 H 20 24 Rate Respiratory Rate [Bilateral ] Respiratory Rate [back] Blood Pressure 119/51 126/44 O2 Sat by Pulse 98 98 98 Oximetry 03/25/16 03/25/16 03/25/16 12:11 12:15 12:31 Temperature Pulse Rate 105 H 97 H 100 H Pulse Rate [ Bilateral] Pulse Rate [ From Monitor] Respiratory 43 H 27 H 26 H Rate Respiratory Rate [Bilateral ] Respiratory Rate [back] Blood Pressure 126/44 126/44 126/44 O2 Sat by Pulse 97 99 97 Oximetry 03/25/16 03/25/16 03/25/16 12:45 13:00 13:12 Temperature 99.0 F Pulse Rate 117 H 100 H Pulse Rate [ Bilateral] Pulse Rate [ From Monitor] Respiratory 41 H 29 H Rate Respiratory Rate [Bilateral ] Respiratory Rate [back] Blood Pressure 126/44 124/54 O2 Sat by Pulse 98 98 Oximetry 03/25/16 03/25/16 13:26 13:34 Temperature Pulse Rate Pulse Rate [ 94 H 89 Bilateral] Pulse Rate [ From Monitor] Respiratory Rate Respiratory 29 H 20 Rate [Bilateral ] Respiratory Rate [back] Blood Pressure O2 Sat by Pulse Oximetry Constitutional: lethargic, asleep, other (On mechanical ventilation) Eyes: non-icteric ENT: oropharynx moist Neck: supple, no JVD Ascultation: Bilateral: diminished breath sounds Cardiovascular: regular rate and rhythm Gastrointestinal: normoactive bowel sounds, soft, non-tender Integumentary: normal Extremities: no cyanosis, no edema Neurologic: unable to assess Psychiatric: other (Can not assess at this time.) CBC and BMP: 03/25/16 04:30 03/25/16 04:30 ABG, PT/INR, D-dimer: ABG POC ABG pH 7.261 (7.35-7.45) L 03/25/16 10:17 POC ABG pCO2 28.6 (35-45) L 03/25/16 10:17 POC ABG pO2 92 (80-105) 03/25/16 10:17 POC ABG HCO3 12.9 03/25/16 10:17 POC ABG Total CO2 14 03/25/16 10:17 POC ABG O2 Sat 96 03/25/16 10:17 PT/INR, D-dimer PT 16.8 Sec. (12.2-14.9) H 03/23/16 18:56 INR 1.37 (0.87-1.13) H 03/23/16 18:56 Abnormal lab findings: Abnormal Labs 03/24/16 03/24/16 03/24/16 00:10 05:04 05:12 RBC 2.42 L Hgb 7.8 L Hct 23.4 L MCV 99 H RDW Plt Count 139 L [place] % (Auto) 10.4 H Lymph # 0.9 L Seg Neutrophils % 71.0 H Lymphocytes % (Manual) Lymphocytes # (Manual) POC ABG pH 7.279 L POC ABG pCO2 33.6 L POC ABG pO2 112 H Sodium Chloride Carbon Dioxide BUN Creatinine POC Glucose 144 H Calcium Total Protein Albumin 03/24/16 03/24/16 03/25/16 05:12 05:50 04:30 RBC 2.55 L Hgb 8.0 L Hct 25.0 L MCV 98 H RDW 15.6 H Plt Count [place] % (Auto) Lymph # Seg Neutrophils % Lymphocytes % (Manual) 10.0 L Lymphocytes # (Manual) 0.7 L POC ABG pH POC ABG pCO2 POC ABG pO2 Sodium Chloride 112.3 H Carbon Dioxide 17 L BUN 51 H Creatinine 2.3 H POC Glucose 107 H Calcium 7.0 L Total Protein Albumin 03/25/16 03/25/16 03/25/16 04:30 04:58 10:17 RBC Hgb Hct MCV RDW Plt Count [place] % (Auto) Lymph # Seg Neutrophils % Lymphocytes % (Manual) Lymphocytes # (Manual) POC ABG pH 7.285 L 7.261 L POC ABG pCO2 27.2 L 28.6 L POC ABG pO2 112 H Sodium 148 H Chloride 116.9 H Carbon Dioxide 14 L BUN 38 H Creatinine 1.7 H POC Glucose Calcium 7.1 L Total Protein 5.0 L D Albumin 2.4 L
[2016-03-25] MEDS: fentaNYL DRIP Premix 100 ML IV SCH ×2 (14:16→21:21)
[2016-03-25] MEDS: SODIUM BICARBONATE 150 MEQ in D5W 1,000 ML IV SCH (15:55)
--- NOTE | 2016-03-25 16:24 | Progress Note ---
Assessment and Plan Assessment and plan: --Acute respiratory failure; orally intubated on ventilatory support Continue nebulizers, IV steroids, pulmonary following, Empiric antibiotics, wean as tolerated and extubate --Encephalopathy /Opiate overdose; accidental, Closely monitor --Hypotension/shock,Improved, off pressors --SIRS; blood cultures urine cultures Lactic acid level within normal limits, empiric antibiotics ID evaluation if needed -- acute on chronic kidney disease Probably secondary to vasomotor nephropathy, IV hydration, discontinue improvement of creatinine from 2.4-1.7 --Metabolic acidosis secondary to acute renal failure Lactate levels within normal limits, IV fluids and replacement therapy as needed --Acute exacerbation of COPD Continue oxygen support, nebulizers, IV steroids IV antibiotics inhalation steroids and supportive care --Anemia, hemoglobin increased to 8,no external evidence of bleeding, Patient's baseline hemoglobin is 10-11 --DVT prophylaxis; with Lovenox, Dobbhoff feeds as tolerated --D/C planning per case management when medically stable --Patient full CODE STATUS Patient's condition treatment plan discussed in detail with the patient's family her nurse as well as the case management Critical care time 31 minutes The high probability of a clinically significant, sudden or life threatening deterioration of the [respiratory, neurology , hematological and renal, ] system(s) required my full and direct attention, intervention and personal management. The aggregate critical care time was [31] minutes. This time is in addition to time spent performing reported procedures but includes the following : [x] Data Review and interpretation [x] Patient assessment and monitoring of vital signs [x] Documentation [x] Medication orders and management History Interval history: Sincerely and evaluated this morning medical records reviewed No new events reported by the nursing staff Remains intubated on ventilatory support, Off pressors Vital signs reviewed Hospitalist Physical - Constitutional Vitals: Temp Pulse Resp BP Pulse Ox 99.0 F 79 21 112/50 100 03/25/16 13:12 03/25/16 15:45 03/25/16 15:45 03/25/16 15:45 03/25/16 15:45 General appearance: Present: no acute distress, well-nourished, obese, other ( intubated aND SEDATED) - EENT Eyes: Present: PERRL, EOM intact - Neck Neck: Present: supple, normal ROM - Respiratory Respiratory effort: normal Respiratory: bilateral: diminished, negative: rales, rhonchi, wheezing - Cardiovascular Rhythm: regular Heart Sounds: Present: S1 & S2 - Extremities Extremities: no ischemia, pulses intact, pulses symmetrical Peripheral Pulses: within normal limits - Abdominal General gastrointestinal: soft, non-tender, non-distended, normal bowel sounds - Integumentary Integumentary: Present: clear, warm - Psychiatric Psychiatric: appropriate mood/affect, cooperative - Neurologic Neurologic: CNII-XII intact, moves all extremities Results - Labs CBC & Chem 7: 03/25/16 04:30 03/25/16 04:30 Labs: Laboratory Last Values WBC 7.4 K/mm3 (4.5-11.0) 03/25/16 04:30 RBC 2.55 M/mm3 (3.65-5.03) L 03/25/16 04:30 Hgb 8.0 gm/dl (10.1-14.3) L 03/25/16 04:30 Hct 25.0 % (30.3-42.9) L 03/25/16 04:30 MCV 98 fl (79-97) H 03/25/16 04:30 MCH 31 pg (28-32) 03/25/16 04:30 MCHC 32 % (30-34) 03/25/16 04:30 RDW 15.6 % (13.2-15.2) H 03/25/16 04:30 Plt Count 154 K/mm3 (140-440) 03/25/16 04:30 Lymph % (Auto) 17.5 % (13.4-35.0) 03/24/16 05:12 Barber % (Auto) Manager Room 03/25/16 04:30 Eos % (Auto) 0.7 % (0.0-4.3) 03/24/16 05:12 Baso % (Auto) 0.4 % (0.0-1.8) 03/24/16 05:12 Lymph # 0.9 K/mm3 (1.2-5.4) L 03/24/16 05:12 Barber # 0.5 K/mm3 (0.0-0.8) 03/24/16 05:12 Eos # 0.0 K/mm3 (0.0-0.4) 03/24/16 05:12 Baso # 0.0 K/mm3 (0.0-0.1) 03/24/16 05:12 Add Manual Diff Complete 03/25/16 04:30 Total Counted 100 03/25/16 04:30 Seg Neutrophils % 71.0 % (40.0-70.0) H 03/24/16 05:12 Seg Neuts % (Manual) 64.0 % (40.0-70.0) 03/25/16 04:30 Band Neutrophils % 18.0 % 03/25/16 04:30 Lymphocytes % (Manual) 10.0 % (13.4-35.0) L 03/25/16 04:30 Reactive Lymphs % (Man) 0 % 03/25/16 04:30 Monocytes % (Manual) 7.0 % (0.0-7.3) 03/25/16 04:30 Eosinophils % (Manual) 1.0 % (0.0-4.3) 03/25/16 04:30 Basophils % (Manual) 0 % (0.0-1.8) 03/25/16 04:30 Metamyelocytes % 0 % 03/25/16 04:30 Myelocytes % 0 % 03/25/16 04:30 Promyelocytes % 0 % 03/25/16 04:30 Blast Cells % 0 % 03/25/16 04:30 Nucleated RBC % Not Reportable 03/25/16 04:30 Seg Neutrophils # 3.6 K/mm3 (1.8-7.7) 03/24/16 05:12 Seg Neutrophils # Man 4.7 K/mm3 (1.8-7.7) 03/25/16 04:30 Band Neutrophils # 1.3 K/mm3 03/25/16 04:30 Lymphocytes # (Manual) 0.7 K/mm3 (1.2-5.4) L 03/25/16 04:30 Abs React Lymphs (Man) 0.0 K/mm3 03/25/16 04:30 Monocytes # (Manual) 0.5 K/mm3 (0.0-0.8) 03/25/16 04:30 Eosinophils # (Manual) 0.1 K/mm3 (0.0-0.4) 03/25/16 04:30 Basophils # (Manual) 0.0 K/mm3 (0.0-0.1) 03/25/16 04:30 Metamyelocytes # 0.0 K/mm3 03/25/16 04:30 Myelocytes # 0.0 K/mm3 03/25/16 04:30 Promyelocytes # 0.0 K/mm3 03/25/16 04:30 Blast Cells # 0.0 K/mm3 03/25/16 04:30 WBC Morphology Not Reportable 03/25/16 04:30 Hypersegmented Neuts Not Reportable 03/25/16 04:30 Hyposegmented Neuts Not Reportable 03/25/16 04:30 Hypogranular Neuts Not Reportable 03/25/16 04:30 Smudge Cells Not Reportable 03/25/16 04:30 Toxic Granulation Not Reportable 03/25/16 04:30 Toxic Vacuolation Not Reportable 03/25/16 04:30 Dohle Bodies Not Reportable 03/25/16 04:30 Pelger-Huet Anomaly Not Reportable 03/25/16 04:30 Sameer Rods Not Reportable 03/25/16 04:30 Platelet Estimate Appears decreased 03/25/16 04:30 Clumped Platelets Not Reportable 03/25/16 04:30 Plt Clumps, EDTA Not Reportable 03/25/16 04:30 Large Platelets Not Reportable 03/25/16 04:30 Giant Platelets Not Reportable 03/25/16 04:30 Platelet Satelliting Not Reportable 03/25/16 04:30 Plt Morphology Comment Not Reportable 03/25/16 04:30 RBC Morphology Not Reportable 03/25/16 04:30 Dimorphic RBCs Not Reportable 03/25/16 04:30 Polychromasia Not Reportable 03/25/16 04:30 Hypochromasia Not Reportable 03/25/16 04:30 Poikilocytosis Few 03/25/16 04:30 Anisocytosis Not Reportable 03/25/16 04:30 Microcytosis Not Reportable 03/25/16 04:30 Macrocytosis Not Reportable 03/25/16 04:30 Spherocytes Not Reportable 03/25/16 04:30 Pappenheimer Bodies Not Reportable 03/25/16 04:30 Sickle Cells Not Reportable 03/25/16 04:30 Target Cells Not Reportable 03/25/16 04:30 Tear Drop Cells Not Reportable 03/25/16 04:30 Ovalocytes Few 03/25/16 04:30 Helmet Cells Not Reportable 03/25/16 04:30 [place] Bodies Not Reportable 03/25/16 04:30 [place] Rings Not Reportable 03/25/16 04:30 Ryan Cells Not Reportable 03/25/16 04:30 Bite Cells Not Reportable 03/25/16 04:30 Crenated Cell Not Reportable 03/25/16 04:30 Elliptocytes Not Reportable 03/25/16 04:30 Acanthocytes (Spur) Not Reportable 03/25/16 04:30 Rouleaux Not Reportable 03/25/16 04:30 Hemoglobin C Crystals Not Reportable 03/25/16 04:30 Schistocytes Not Reportable 03/25/16 04:30 Malaria parasites Not Reportable 03/25/16 04:30 Konstantin Bodies Not Reportable 03/25/16 04:30 Hem Pathologist Commnt No 03/25/16 04:30 PT 16.8 Sec. (12.2-14.9) H 03/23/16 18:56 INR 1.37 (0.87-1.13) H 03/23/16 18:56 APTT 28.7 Sec. (24.2-36.6) 03/23/16 18:56 POC ABG pH 7.261 (7.35-7.45) L 03/25/16 10:17 POC ABG pCO2 28.6 (35-45) L 03/25/16 10:17 POC ABG pO2 92 (80-105) 03/25/16 10:17 POC ABG HCO3 12.9 03/25/16 10:17 POC ABG Total CO2 14 03/25/16 10:17 POC ABG O2 Sat 96 03/25/16 10:17 POC ABG Base Excess -14 03/25/16 10:17 FiO2 35 % 03/25/16 10:17 Sodium 148 mmol/L (137-145) H 03/25/16 04:30 Potassium 4.6 mmol/L (3.6-5.0) 03/25/16 04:30 Chloride 116.9 mmol/L (98-107) H 03/25/16 04:30 Carbon Dioxide 14 mmol/L (22-30) L 03/25/16 04:30 Anion Gap 22 mmol/L 03/25/16 04:30 BUN 38 mg/dL (7-17) H 03/25/16 04:30 Creatinine 1.7 mg/dL (0.7-1.2) H 03/25/16 04:30 Estimated GFR 30 ml/min 03/25/16 04:30 BUN/Creatinine Ratio 22.35 % 03/25/16 04:30 Glucose 78 mg/dL (65-100) 03/25/16 04:30 POC Glucose 83 (70-105) 03/25/16 12:19 Lactic Acid 1.4 mmol/L (0.7-2.0) 03/23/16 20:10 Calcium 7.1 mg/dL (8.4-10.2) L 03/25/16 04:30 Phosphorus 3.8 mg/dL (2.5-4.5) 03/25/16 04:30 Magnesium 1.7 mg/dL (1.7-2.3) 03/25/16 04:30 Total Bilirubin 0.2 mg/dL (0.1-1.2) 03/25/16 04:30 Direct Bilirubin < 0.2 mg/dL (0-0.2) 03/25/16 04:30 Indirect Bilirubin 0.0 mg/dL 03/25/16 04:30 AST 20 units/L (5-40) 03/25/16 04:30 ALT 12 units/L (7-56) 03/25/16 04:30 Alkaline Phosphatase 86 units/L (35-129) 03/25/16 04:30 Total Protein 5.0 g/dL (6.3-8.2) L D 03/25/16 04:30 Albumin 2.4 g/dL (3.9-5) L 03/25/16 04:30 Albumin/Globulin Ratio 0.9 % 03/25/16 04:30 TSH 0.264 mlU/mL (0.270-4.200) L 03/23/16 17:33 Urine Color Yellow (Yellow) 03/23/16 20:13 Urine Turbidity Slightly-cloudy (Clear) 03/23/16 20:13 Urine pH 5.0 (5.0-7.0) 03/23/16 20:13 Ur Specific [place] 1.016 (1.003-1.030) 03/23/16 20:13 Urine Protein 100 mg/dl mg/dL (Negative) 03/23/16 20:13 Urine Glucose (UA) Neg mg/dL (Negative) 03/23/16 20:13 Urine Ketones Neg mg/dL (Negative) 03/23/16 20:13 Urine Blood Mod (Negative) 03/23/16 20:13 Urine Nitrite Neg (Negative) 03/23/16 20:13 Urine Bilirubin Neg (Negative) 03/23/16 20:13 Urine Urobilinogen < 2.0 mg/dL (<2.0) 03/23/16 20:13 Ur Leukocyte Esterase Neg (Negative) 03/23/16 20:13 Urine WBC (Auto) < 1.0 /HPF (0.0-6.0) 03/23/16 20:13 Urine RBC (Auto) < 1.0 /HPF (0.0-6.0) 03/23/16 20:13 U Epithel Cells (Auto) < 1.0 /HPF (0-13.0) 03/23/16 20:13 Urine Mucus Few /HPF 03/23/16 20:13 Salicylates 0.6 mg/dL (2.8-20.0) L 03/23/16 17:33 Urine Opiates Screen Presumptive positive 03/23/16 20:13 Urine Methadone Screen Presumptive negative 03/23/16 20:13 Acetaminophen < 15.0 ug/mL (10.0-30.0) 03/23/16 17:33 Ur Barbiturates Screen Presumptive negative 03/23/16 20:13 Ur Phencyclidine Scrn Presumptive negative 03/23/16 20:13 Ur Amphetamines Screen Presumptive negative 03/23/16 20:13 U Benzodiazepines Scrn Presumptive negative 03/23/16 20:13 Urine Cocaine Screen Presumptive negative 03/23/16 20:13 U Marijuana (THC) Screen Presumptive negative 03/23/16 20:13 Drugs of Abuse Note Disclamer 03/23/16 20:13 Plasma/Serum Alcohol < 0.01 gm% (0-0.07) 03/23/16 17:45 Blood Type B NEGATIVE 03/23/16 19:07 Antibody Screen Negative 03/23/16 19:07
[2016-03-25] MEDS ORDERED: PANCREAZE DR 10,500 UNIT FEEDTUBE PRN (16:37)
[2016-03-25] MEDS ORDERED: SIMPLE SYRUP FEEDTUBE PRN ×2 (16:37)
[2016-03-25] MEDS ORDERED: SODIUM BICARBONATE FEEDTUBE PRN (16:37)
[2016-03-25] MEDS ORDERED: SUBLIMAZE 2,000 MCG in NACL 0.9% 60 ML IV SCH (17:00)
[2016-03-26] MEDS: NOVOLOG SUB-Q SCH ×3 (02:57→17:25)
[2016-03-26] MEDS: HEPARIN SUB-Q SCH ×3 (05:32→21:55)
[2016-03-26] MEDS: ZOSYN/NS 2.25 GM/50ML 50 ML IV SCH ×3 (05:32→17:19)
[2016-03-26 05:37] LABS: ISTAT Base Excess -6; ISTAT HCO3 19.1; ISTAT PCO2 31.8 (35-45); ISTAT PH 7.387 (7.35-7.45); ISTAT PO2 83 (80-105); ISTAT SO2 96; ISTAT TCO2 20
[2016-03-26] MEDS ORDERED: ZOSYN/NS 4.5GM/100ML 100 ML IV SCH (06:00)
[2016-03-26 06:03] LABS: Basophils % (Auto) 0.2 % (0.0-1.8); Eosinophils % (Auto) 1.2 % (0.0-4.3); Hemoglobin 7.7 gm/dl (10.1-14.3); Mean Corpuscular HGB Conc 34 % (30-34); Mean Corpuscular Hemoglobin 33 pg (28-32); Mean Corpuscular Volume 97 fl (79-97); Platelet Count 134 K/mm3 (140-440); Red Blood Count 2.37 M/mm3 (3.65-5.03); White Blood Count 5.5 K/mm3 (4.5-11.0)
[2016-03-26] MEDS: SODIUM BICARBONATE 150 MEQ in D5W 1,000 ML IV SCH ×2 (06:09→22:06)
[2016-03-26 06:13] LABS: BUN/Creatinine Ratio 15.38; Calcium 7.6 mg/dL (8.4-10.2); Chloride 112.3 mmol/L (98-107)
[2016-03-26] MEDS: TYLENOL FEEDTUBE PRN (06:13)
[2016-03-26] MEDS: fentaNYL DRIP Premix 100 ML IV SCH (06:15)
[2016-03-26] MEDS: DUONEB 0.5 MG-3 MG/3 ML SOLN IH SCH ×3 (08:02→20:08)
[2016-03-26] MEDS: NEURONTIN PO SCH ×3 (08:20→21:53)
[2016-03-26] MEDS: PEPCID PO SCH ×2 (09:34→21:53)
[2016-03-26] MEDS: PLAVIX PO SCH (09:34)
--- NOTE | 2016-03-26 10:14 | Progress Note ---
Assessment and Plan - Patient Problems (1) Respiratory failure Current Visit: Yes Status: Acute Qualifiers: Chronicity: acute Respiratory failure complication: hypoxia Qualified Code(s): J96.01 - Acute respiratory failure with hypoxia Plan to address problem: Continue with mechanical ventilatory support, daily SBTs as tolerated. Lung protective strategies. Analgesia and agitation management HOB >30, aspiration precautions. Nutritional support. VAP bundle and critical care bundles addressed. VTE and stress ulcer prophylaxis (2) Metabolic acidosis Current Visit: Yes Status: Acute Plan to address problem: Continue with bicarb infusion while monitoring fluid status closely. Monitor sodium levels (3) Accidental drug overdose Current Visit: No Status: Acute (4) Acute renal failure Current Visit: Yes Status: Acute Qualifiers: Acute renal failure type: unspecified Qualified Code(s): N17.9 - Acute kidney failure, unspecified Plan to address problem: Avoid nephrotoxic medications. Adjust medication dosages for [facility] Nephrology following (5) Altered mental status Current Visit: Yes Status: Acute Qualifiers: Altered mental status type: unspecified Qualified Code(s): R41.82 - Altered mental status, unspecified Plan to address problem: Continue to monitor closely. Probably toxic and metabolic from metabolic derangements and accidental overdose. Continue with aspiration precautions Subjective Date of service: 03/26/16 Interval history: This is 65 year old white female admitted with drug overdose, altered mental status and hypotension.Patient intubated and placed on mechanical ventilation.Patient has history of hypertension, chronic kidney disease , DM and COPD.Patient has history of smoking and chronic narcotic drug use for chronic pain. Current smoking status not known. No history of alcohol. Allergic to sulfa.Drug screen positive for Opiates. 03/26/16 Patient less agitated. Still on mechanical ventilation. RT attempted PSV today 02/12- very low lung volumes though she was more awake and alert. High grade fevers overnight- cultures were sent . Currently on renally dosed Zosyn, metabolic acidosis improving on bicarbonate infusion. On heparin and famotidine for VTE/stress ulcer prophylaxis Objective - Exam Narrative Exam: Inpatient is intubated and mechanically ventilated. Vital signs as documented. Head exam is unremarkable. No scleral icterus . Neck is without jugular venous distension, thyromegaly, or carotid bruits. Lungs are clear to auscultation. Cardiac exam reveals regular rate and Rhythm. First and second heart sounds normal. No murmurs, rubs or gallops. Abdominal exam reveals normal bowel sounds, no masses, no organomegaly and no aortic enlargement. Extremities are nonedematous and both femoral and pedal pulses are normal. 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 No focal weakness. Vital Signs - 12hr 03/25/16 03/25/16 03/25/16 22:16 22:30 22:46 Temperature Pulse Rate 97 H 97 H 95 H Pulse Rate [ Bilateral] Pulse Rate [ From Monitor] Respiratory 20 20 20 Rate Respiratory Rate [Bilateral ] Blood Pressure 127/60 127/60 127/60 O2 Sat by Pulse 99 99 98 Oximetry 03/25/16 03/25/16 03/25/16 23:00 23:16 23:30 Temperature Pulse Rate 95 H 98 H 105 H Pulse Rate [ Bilateral] Pulse Rate [ From Monitor] Respiratory 21 22 24 Rate Respiratory Rate [Bilateral ] Blood Pressure 135/59 135/59 135/59 O2 Sat by Pulse 97 99 99 Oximetry 03/25/16 03/25/16 03/26/16 23:46 23:49 00:00 Temperature 101.2 F H Pulse Rate 96 H 95 H 96 H Pulse Rate [ Bilateral] Pulse Rate [ 78 From Monitor] Respiratory 21 20 Rate Respiratory Rate [Bilateral ] Blood Pressure 135/59 135/59 129/69 O2 Sat by Pulse 99 99 100 Oximetry 03/26/16 03/26/16 03/26/16 00:16 00:30 00:46 Temperature Pulse Rate 91 H 93 H 92 H Pulse Rate [ Bilateral] Pulse Rate [ From Monitor] Respiratory 20 19 20 Rate Respiratory Rate [Bilateral ] Blood Pressure 129/69 129/69 129/69 O2 Sat by Pulse 99 100 99 Oximetry 03/26/16 03/26/16 03/26/16 01:00 01:16 01:30 Temperature Pulse Rate 89 89 90 Pulse Rate [ Bilateral] Pulse Rate [ From Monitor] Respiratory 20 20 20 Rate Respiratory Rate [Bilateral ] Blood Pressure 130/58 130/58 130/58 O2 Sat by Pulse 99 99 99 Oximetry 03/26/16 03/26/16 03/26/16 01:46 02:00 02:16 Temperature Pulse Rate 88 93 H 90 Pulse Rate [ Bilateral] Pulse Rate [ From Monitor] Respiratory 20 22 20 Rate Respiratory Rate [Bilateral ] Blood Pressure 130/58 145/64 145/64 O2 Sat by Pulse 99 99 99 Oximetry 03/26/16 03/26/16 03/26/16 02:24 02:30 02:46 Temperature Pulse Rate 89 87 88 Pulse Rate [ Bilateral] Pulse Rate [ From Monitor] Respiratory 19 20 20 Rate Respiratory Rate [Bilateral ] Blood Pressure 145/64 145/64 145/64 O2 Sat by Pulse 99 99 99 Oximetry 03/26/16 03/26/16 03/26/16 03:00 03:16 03:30 Temperature Pulse Rate 87 89 89 Pulse Rate [ Bilateral] Pulse Rate [ From Monitor] Respiratory 20 20 20 Rate Respiratory Rate [Bilateral ] Blood Pressure 139/62 139/62 139/62 O2 Sat by Pulse 98 98 99 Oximetry 03/26/16 03/26/16 03/26/16 03:36 03:46 04:00 Temperature 101.5 F H Pulse Rate 88 89 87 Pulse Rate [ Bilateral] Pulse Rate [ 80 From Monitor] Respiratory 19 20 20 Rate Respiratory Rate [Bilateral ] Blood Pressure 139/62 139/62 138/61 O2 Sat by Pulse 98 99 98 Oximetry 03/26/16 03/26/16 03/26/16 04:10 04:16 04:30 Temperature Pulse Rate 108 H 103 H 103 H Pulse Rate [ Bilateral] Pulse Rate [ From Monitor] Respiratory 20 21 Rate Respiratory Rate [Bilateral ] Blood Pressure 138/61 138/61 138/61 O2 Sat by Pulse 97 97 99 Oximetry 03/26/16 03/26/16 03/26/16 04:46 05:00 05:16 Temperature Pulse Rate 104 H 93 H 88 Pulse Rate [ Bilateral] Pulse Rate [ From Monitor] Respiratory 18 20 20 Rate Respiratory Rate [Bilateral ] Blood Pressure 138/61 123/54 123/54 O2 Sat by Pulse 96 97 98 Oximetry 03/26/16 03/26/16 03/26/16 05:30 05:46 06:00 Temperature Pulse Rate 85 86 81 Pulse Rate [ Bilateral] Pulse Rate [ From Monitor] Respiratory 20 20 20 Rate Respiratory Rate [Bilateral ] Blood Pressure 123/54 123/54 133/61 O2 Sat by Pulse 97 98 99 Oximetry 03/26/16 03/26/16 03/26/16 06:16 06:26 06:30 Temperature Pulse Rate 85 80 79 Pulse Rate [ Bilateral] Pulse Rate [ From Monitor] Respiratory 20 21 20 Rate Respiratory Rate [Bilateral ] Blood Pressure 133/61 123/54 123/54 O2 Sat by Pulse 99 99 99 Oximetry 03/26/16 03/26/16 03/26/16 06:46 07:00 07:16 Temperature Pulse Rate 79 75 74 Pulse Rate [ Bilateral] Pulse Rate [ From Monitor] Respiratory 20 21 20 Rate Respiratory Rate [Bilateral ] Blood Pressure 123/54 120/45 120/45 O2 Sat by Pulse 98 98 98 Oximetry 03/26/16 03/26/16 03/26/16 07:30 07:46 07:53 Temperature Pulse Rate 72 100 H 86 Pulse Rate [ Bilateral] Pulse Rate [ From Monitor] Respiratory 20 17 Rate Respiratory Rate [Bilateral ] Blood Pressure 120/45 120/45 120/45 O2 Sat by Pulse 99 86 100 Oximetry 03/26/16 03/26/16 03/26/16 07:58 08:00 08:02 Temperature 99.4 F Pulse Rate 87 91 H Pulse Rate [ 91 H Bilateral] Pulse Rate [ 91 H From Monitor] Respiratory 25 H 25 H Rate Respiratory 20 Rate [Bilateral ] Blood Pressure 120/45 137/50 O2 Sat by Pulse 99 99 Oximetry 03/26/16 08:13 Temperature Pulse Rate Pulse Rate [ 95 H Bilateral] Pulse Rate [ From Monitor] Respiratory Rate Respiratory 25 H Rate [Bilateral ] Blood Pressure O2 Sat by Pulse Oximetry Constitutional: lethargic, asleep, other (On mechanical ventilation) Eyes: non-icteric ENT: oropharynx moist Neck: supple, no JVD Ascultation: Bilateral: diminished breath sounds Cardiovascular: regular rate and rhythm Gastrointestinal: normoactive bowel sounds, soft, non-tender Integumentary: normal Extremities: no cyanosis, no edema Neurologic: unable to assess Psychiatric: other (Can not assess at this time.) CBC and BMP: 03/26/16 05:30 03/26/16 05:30 ABG, PT/INR, D-dimer: ABG POC ABG pH 7.387 (7.35-7.45) 03/26/16 05:32 POC ABG pCO2 31.8 (35-45) L 03/26/16 05:32 POC ABG pO2 83 (80-105) 03/26/16 05:32 POC ABG HCO3 19.1 03/26/16 05:32 POC ABG Total CO2 20 03/26/16 05:32 POC ABG O2 Sat 96 03/26/16 05:32 PT/INR, D-dimer PT 16.8 Sec. (12.2-14.9) H 03/23/16 18:56 INR 1.37 (0.87-1.13) H 03/23/16 18:56 Abnormal lab findings: Abnormal Labs 03/24/16 03/24/16 03/24/16 00:10 05:04 05:12 RBC 2.42 L Hgb 7.8 L Hct 23.4 L MCV 99 H MCH RDW Plt Count 139 L [place] % (Auto) 10.4 H Lymph # 0.9 L Seg Neutrophils % 71.0 H Lymphocytes % (Manual) Lymphocytes # (Manual) POC ABG pH 7.279 L POC ABG pCO2 33.6 L POC ABG pO2 112 H Sodium Chloride Carbon Dioxide BUN Creatinine Glucose POC Glucose 144 H Calcium Total Protein Albumin 03/24/16 03/24/16 03/25/16 05:12 05:50 04:30 RBC 2.55 L Hgb 8.0 L Hct 25.0 L MCV 98 H MCH RDW 15.6 H Plt Count [place] % (Auto) Lymph # Seg Neutrophils % Lymphocytes % (Manual) 10.0 L Lymphocytes # (Manual) 0.7 L POC ABG pH POC ABG pCO2 POC ABG pO2 Sodium Chloride 112.3 H Carbon Dioxide 17 L BUN 51 H Creatinine 2.3 H Glucose POC Glucose 107 H Calcium 7.0 L Total Protein Albumin 03/25/16 03/25/16 03/25/16 04:30 04:58 10:17 RBC Hgb Hct MCV MCH RDW Plt Count [place] % (Auto) Lymph # Seg Neutrophils % Lymphocytes % (Manual) Lymphocytes # (Manual) POC ABG pH 7.285 L 7.261 L POC ABG pCO2 27.2 L 28.6 L POC ABG pO2 112 H Sodium 148 H Chloride 116.9 H Carbon Dioxide 14 L BUN 38 H Creatinine 1.7 H Glucose POC Glucose Calcium 7.1 L Total Protein 5.0 L D Albumin 2.4 L 03/26/16 03/26/16 03/26/16 05:30 05:30 05:32 RBC 2.37 L Hgb 7.7 L Hct 23.0 L MCV MCH 33 H RDW Plt Count 134 L [place] % (Auto) 15.2 H Lymph # 0.9 L Seg Neutrophils % Lymphocytes % (Manual) Lymphocytes # (Manual) POC ABG pH POC ABG pCO2 31.8 L POC ABG pO2 Sodium 147 H Chloride 112.3 H Carbon Dioxide 21 L D BUN 20 H Creatinine 1.3 H Glucose 121 H POC Glucose Calcium 7.6 L Total Protein Albumin 03/26/16 06:05 RBC Hgb Hct MCV MCH RDW Plt Count [place] % (Auto) Lymph # Seg Neutrophils % Lymphocytes % (Manual) Lymphocytes # (Manual) POC ABG pH POC ABG pCO2 POC ABG pO2 Sodium Chloride Carbon Dioxide BUN Creatinine Glucose POC Glucose 115 H Calcium Total Protein Albumin
[2016-03-26] MEDS ORDERED: SIMPLE SYRUP FEEDTUBE PRN ×2 (11:45)
[2016-03-26] MEDS ORDERED: PANCREAZE DR 10,500 UNIT FEEDTUBE PRN (11:45)
[2016-03-26] MEDS ORDERED: SODIUM BICARBONATE FEEDTUBE PRN (11:45)
--- NOTE | 2016-03-26 12:31 | Progress Note ---
Assessment and Plan Assessment and plan: --Acute respiratory failure; orally intubated on ventilatory support nebulizers, IV steroids, Empiric antibiotics, wean as tolerated and extubate/ pulmonary lying -- acute on chronic kidney disease Probably secondary to vasomotor nephropathy, IV hydration, discontinue improvement of creatinine from 2.4-1.7 --Encephalopathy /Opiate overdose; accidental, patient more alert --Hypotension/shock,Improved, off pressors --SIRS; blood cultures urine cultures Lactic acid level within normal limits, empiric antibiotics ID evaluation if needed --Metabolic acidosis secondary to acute renal failure Lactate levels within normal limits, IV fluids and replacement therapy as needed --Acute exacerbation of COPD Continue oxygen support, nebulizers, IV steroids IV antibiotics inhalation steroids and supportive care --Anemia, hemoglobin increased to 8,no external evidence of bleeding, Patient's baseline hemoglobin is 10-11 --DVT prophylaxis; with Lovenox, Dobbhoff feeds as tolerated --D/C planning per case management when medically stable --Patient full CODE STATUS Patient's condition treatment plan discussed in detail with the patient's family her nurse as well as the case management Critical care time 31 minutes The high probability of a clinically significant, sudden or life threatening deterioration of the [respiratory, neurology , hematological and renal, ] system(s) required my full and direct attention, intervention and personal management. The aggregate critical care time was [31] minutes. This time is in addition to time spent performing reported procedures but includes the following : [x] Data Review and interpretation [x] Patient assessment and monitoring of vital signs [x] Documentation [x] Medication orders and management History Interval history: Patient seen and evaluated medical records reviewed Remains intubated on ventilatory support Off pressors blood pressure well maintained Responding to verbal commands Vital signs reviewed Hospitalist Physical - Constitutional Vitals: Temp Pulse Resp BP Pulse Ox 99.4 F 89 20 137/58 97 03/26/16 08:00 03/26/16 12:16 03/26/16 12:16 03/26/16 12:16 03/26/16 12:16 General appearance: Present: no acute distress, well-nourished, obese, other ( intubated on ventilatory support) - EENT Eyes: Present: PERRL, EOM intact - Neck Neck: Present: supple, normal ROM - Respiratory Respiratory effort: normal Respiratory: bilateral: diminished, negative: rales, rhonchi, wheezing - Cardiovascular Rhythm: regular Heart Sounds: Present: S1 & S2 - Extremities Extremities: no ischemia, pulses intact, pulses symmetrical - Abdominal General gastrointestinal: soft, non-tender, non-distended, normal bowel sounds - Integumentary Integumentary: Present: clear, warm - Psychiatric Psychiatric: appropriate mood/affect, cooperative - Neurologic Neurologic: CNII-XII intact, moves all extremities Results - Labs CBC & Chem 7: 03/26/16 05:30 03/26/16 05:30 Labs: Laboratory Last Values WBC 5.5 K/mm3 (4.5-11.0) 03/26/16 05:30 RBC 2.37 M/mm3 (3.65-5.03) L 03/26/16 05:30 Hgb 7.7 gm/dl (10.1-14.3) L 03/26/16 05:30 Hct 23.0 % (30.3-42.9) L 03/26/16 05:30 MCV 97 fl (79-97) 03/26/16 05:30 MCH 33 pg (28-32) H 03/26/16 05:30 MCHC 34 % (30-34) 03/26/16 05:30 RDW 15.0 % (13.2-15.2) 03/26/16 05:30 Plt Count 134 K/mm3 (140-440) L 03/26/16 05:30 Lymph % (Auto) 16.5 % (13.4-35.0) 03/26/16 05:30 [place] % (Auto) 15.2 % (0.0-7.3) H 03/26/16 05:30 Eos % (Auto) 1.2 % (0.0-4.3) 03/26/16 05:30 Baso % (Auto) 0.2 % (0.0-1.8) 03/26/16 05:30 Lymph # 0.9 K/mm3 (1.2-5.4) L 03/26/16 05:30 [place] # 0.8 K/mm3 (0.0-0.8) 03/26/16 05:30 Eos # 0.1 K/mm3 (0.0-0.4) 03/26/16 05:30 Baso # 0.0 K/mm3 (0.0-0.1) 03/26/16 05:30 Add Manual Diff Complete 03/25/16 04:30 Total Counted 100 03/25/16 04:30 Seg Neutrophils % 66.9 % (40.0-70.0) 03/26/16 05:30 Seg Neuts % (Manual) 64.0 % (40.0-70.0) 03/25/16 04:30 Band Neutrophils % 18.0 % 03/25/16 04:30 Lymphocytes % (Manual) 10.0 % (13.4-35.0) L 03/25/16 04:30 Reactive Lymphs % (Man) 0 % 03/25/16 04:30 Monocytes % (Manual) 7.0 % (0.0-7.3) 03/25/16 04:30 Eosinophils % (Manual) 1.0 % (0.0-4.3) 03/25/16 04:30 Basophils % (Manual) 0 % (0.0-1.8) 03/25/16 04:30 Metamyelocytes % 0 % 03/25/16 04:30 Myelocytes % 0 % 03/25/16 04:30 Promyelocytes % 0 % 03/25/16 04:30 Blast Cells % 0 % 03/25/16 04:30 Nucleated RBC % Not Reportable 03/25/16 04:30 Seg Neutrophils # 3.7 K/mm3 (1.8-7.7) 03/26/16 05:30 Seg Neutrophils # Man 4.7 K/mm3 (1.8-7.7) 03/25/16 04:30 Band Neutrophils # 1.3 K/mm3 03/25/16 04:30 Lymphocytes # (Manual) 0.7 K/mm3 (1.2-5.4) L 03/25/16 04:30 Abs React Lymphs (Man) 0.0 K/mm3 03/25/16 04:30 Monocytes # (Manual) 0.5 K/mm3 (0.0-0.8) 03/25/16 04:30 Eosinophils # (Manual) 0.1 K/mm3 (0.0-0.4) 03/25/16 04:30 Basophils # (Manual) 0.0 K/mm3 (0.0-0.1) 03/25/16 04:30 Metamyelocytes # 0.0 K/mm3 03/25/16 04:30 Myelocytes # 0.0 K/mm3 03/25/16 04:30 Promyelocytes # 0.0 K/mm3 03/25/16 04:30 Blast Cells # 0.0 K/mm3 03/25/16 04:30 WBC Morphology Not Reportable 03/25/16 04:30 Hypersegmented Neuts Not Reportable 03/25/16 04:30 Hyposegmented Neuts Not Reportable 03/25/16 04:30 Hypogranular Neuts Not Reportable 03/25/16 04:30 Smudge Cells Not Reportable 03/25/16 04:30 Toxic Granulation Not Reportable 03/25/16 04:30 Toxic Vacuolation Not Reportable 03/25/16 04:30 Dohle Bodies Not Reportable 03/25/16 04:30 Pelger-Huet Anomaly Not Reportable 03/25/16 04:30 Sameer Rods Not Reportable 03/25/16 04:30 Platelet Estimate Appears decreased 03/25/16 04:30 Clumped Platelets Not Reportable 03/25/16 04:30 Plt Clumps, EDTA Not Reportable 03/25/16 04:30 Large Platelets Not Reportable 03/25/16 04:30 Giant Platelets Not Reportable 03/25/16 04:30 Platelet Satelliting Not Reportable 03/25/16 04:30 Plt Morphology Comment Not Reportable 03/25/16 04:30 RBC Morphology Not Reportable 03/25/16 04:30 Dimorphic RBCs Not Reportable 03/25/16 04:30 Polychromasia Not Reportable 03/25/16 04:30 Hypochromasia Not Reportable 03/25/16 04:30 Poikilocytosis Few 03/25/16 04:30 Anisocytosis Not Reportable 03/25/16 04:30 Microcytosis Not Reportable 03/25/16 04:30 Macrocytosis Not Reportable 03/25/16 04:30 Spherocytes Not Reportable 03/25/16 04:30 Pappenheimer Bodies Not Reportable 03/25/16 04:30 Sickle Cells Not Reportable 03/25/16 04:30 Target Cells Not Reportable 03/25/16 04:30 Tear Drop Cells Not Reportable 03/25/16 04:30 Ovalocytes Few 03/25/16 04:30 Helmet Cells Not Reportable 03/25/16 04:30 Steve-Poole Bodies Not Reportable 03/25/16 04:30 [place] Rings Not Reportable 03/25/16 04:30 [place] Cells Not Reportable 03/25/16 04:30 Bite Cells Not Reportable 03/25/16 04:30 Crenated Cell Not Reportable 03/25/16 04:30 Elliptocytes Not Reportable 03/25/16 04:30 Acanthocytes (Spur) Not Reportable 03/25/16 04:30 Rouleaux Not Reportable 03/25/16 04:30 Hemoglobin C Crystals Not Reportable 03/25/16 04:30 Schistocytes Not Reportable 03/25/16 04:30 Malaria parasites Not Reportable 03/25/16 04:30 Konstantin Bodies Not Reportable 03/25/16 04:30 Hem Pathologist Commnt No 03/25/16 04:30 PT 16.8 Sec. (12.2-14.9) H 03/23/16 18:56 INR 1.37 (0.87-1.13) H 03/23/16 18:56 APTT 28.7 Sec. (24.2-36.6) 03/23/16 18:56 POC ABG pH 7.387 (7.35-7.45) 03/26/16 05:32 POC ABG pCO2 31.8 (35-45) L 03/26/16 05:32 POC ABG pO2 83 (80-105) 03/26/16 05:32 POC ABG HCO3 19.1 03/26/16 05:32 POC ABG Total CO2 20 03/26/16 05:32 POC ABG O2 Sat 96 03/26/16 05:32 POC ABG Base Excess -6 03/26/16 05:32 FiO2 35 % 03/26/16 05:32 Sodium 147 mmol/L (137-145) H 03/26/16 05:30 Potassium 4.0 mmol/L (3.6-5.0) 03/26/16 05:30 Chloride 112.3 mmol/L (98-107) H 03/26/16 05:30 Carbon Dioxide 21 mmol/L (22-30) L D 03/26/16 05:30 Anion Gap 18 mmol/L 03/26/16 05:30 BUN 20 mg/dL (7-17) H 03/26/16 05:30 Creatinine 1.3 mg/dL (0.7-1.2) H 03/26/16 05:30 Estimated GFR 41 ml/min 03/26/16 05:30 BUN/Creatinine Ratio 15.38 % 03/26/16 05:30 Glucose 121 mg/dL (65-100) H 03/26/16 05:30 POC Glucose 146 (70-105) H 03/26/16 11:46 Lactic Acid 1.4 mmol/L (0.7-2.0) 03/23/16 20:10 Calcium 7.6 mg/dL (8.4-10.2) L 03/26/16 05:30 Phosphorus 3.8 mg/dL (2.5-4.5) 03/25/16 04:30 Magnesium 2.0 mg/dL (1.7-2.3) 03/26/16 05:30 Total Bilirubin 0.2 mg/dL (0.1-1.2) 03/25/16 04:30 Direct Bilirubin < 0.2 mg/dL (0-0.2) 03/25/16 04:30 Indirect Bilirubin 0.0 mg/dL 03/25/16 04:30 AST 20 units/L (5-40) 03/25/16 04:30 ALT 12 units/L (7-56) 03/25/16 04:30 Alkaline Phosphatase 86 units/L (35-129) 03/25/16 04:30 Total Protein 5.0 g/dL (6.3-8.2) L D 03/25/16 04:30 Albumin 2.4 g/dL (3.9-5) L 03/25/16 04:30 Albumin/Globulin Ratio 0.9 % 03/25/16 04:30 TSH 0.264 mlU/mL (0.270-4.200) L 03/23/16 17:33 Urine Color Yellow (Yellow) 03/23/16 20:13 Urine Turbidity Slightly-cloudy (Clear) 03/23/16 20:13 Urine pH 5.0 (5.0-7.0) 03/23/16 20:13 Ur Specific [place] 1.016 (1.003-1.030) 03/23/16 20:13 Urine Protein 100 mg/dl mg/dL (Negative) 03/23/16 20:13 Urine Glucose (UA) Neg mg/dL (Negative) 03/23/16 20:13 Urine Ketones Neg mg/dL (Negative) 03/23/16 20:13 Urine Blood Mod (Negative) 03/23/16 20:13 Urine Nitrite Neg (Negative) 03/23/16 20:13 Urine Bilirubin Neg (Negative) 03/23/16 20:13 Urine Urobilinogen < 2.0 mg/dL (<2.0) 03/23/16 20:13 Ur Leukocyte Esterase Neg (Negative) 03/23/16 20:13 Urine WBC (Auto) < 1.0 /HPF (0.0-6.0) 03/23/16 20:13 Urine RBC (Auto) < 1.0 /HPF (0.0-6.0) 03/23/16 20:13 U Epithel Cells (Auto) < 1.0 /HPF (0-13.0) 03/23/16 20:13 Urine Mucus Few /HPF 03/23/16 20:13 Salicylates 0.6 mg/dL (2.8-20.0) L 03/23/16 17:33 Urine Opiates Screen Presumptive positive 03/23/16 20:13 Urine Methadone Screen Presumptive negative 03/23/16 20:13 Acetaminophen < 15.0 ug/mL (10.0-30.0) 03/23/16 17:33 Ur Barbiturates Screen Presumptive negative 03/23/16 20:13 Ur Phencyclidine Scrn Presumptive negative 03/23/16 20:13 Ur Amphetamines Screen Presumptive negative 03/23/16 20:13 U Benzodiazepines Scrn Presumptive negative 03/23/16 20:13 Urine Cocaine Screen Presumptive negative 03/23/16 20:13 U Marijuana (THC) Screen Presumptive negative 03/23/16 20:13 Drugs of Abuse Note Disclamer 03/23/16 20:13 Plasma/Serum Alcohol < 0.01 gm% (0-0.07) 03/23/16 17:45 Blood Type B NEGATIVE 03/23/16 19:07 Antibody Screen Negative 03/23/16 19:07
[2016-03-26] MEDS: XALATAN 0.005% OU SCH (21:53)
[2016-03-27] MEDS: fentaNYL DRIP Premix 100 ML IV SCH (02:00)
[2016-03-27] MEDS: NOVOLOG SUB-Q SCH ×4 (03:21→17:44)
[2016-03-27 06:23] LABS: Basophils % (Auto) 0.4 % (0.0-1.8); Eosinophils % (Auto) 1.1 % (0.0-4.3); Hematocrit 23.7 % (30.3-42.9); Hemoglobin 7.8 gm/dl (10.1-14.3); Mean Corpuscular HGB Conc 33 % (30-34); Mean Corpuscular Hemoglobin 32 pg (28-32); Mean Corpuscular Volume 96 fl (79-97); Platelet Count 138 K/mm3 (140-440); Red Blood Count 2.46 M/mm3 (3.65-5.03); Red Cell Distribution Width 14.3 % (13.2-15.2); White Blood Count 6.2 K/mm3 (4.5-11.0)
[2016-03-27] MEDS: ZOSYN/NS 2.25 GM/50ML 50 ML IV SCH ×2 (06:34)
[2016-03-27] MEDS: HEPARIN SUB-Q SCH ×3 (06:36→21:01)
[2016-03-27 06:54] LABS: BUN/Creatinine Ratio 11.66; Calcium 7.6 mg/dL (8.4-10.2); Chloride 106.4 mmol/L (98-107); Magnesium 1.7 mg/dL (1.7-2.3); Potassium 3.7 mmol/L (3.6-5.0)
--- NOTE | 2016-03-27 07:15 | XRay Report ---
AP CHEST: HISTORY: Acute respiratory failure. FINDINGS: Lines and support devices remain in good position since the exam 2 days ago. Minor bibasilar atelectatic changes have developed. Otherwise, the lungs are clear. Heart and mediastinal structures remain within normal limits. There is borderline pulmonary vascularity. No new acute process is appreciated.
[2016-03-27] MEDS: DUONEB 0.5 MG-3 MG/3 ML SOLN IH SCH ×3 (08:08→21:13)
[2016-03-27] MEDS: NEURONTIN PO SCH ×3 (08:50→21:00)
[2016-03-27] MEDS ORDERED: MAGNESIUM SULFATE 3 GM in NACL 0.9% 100 ML IV ONE (09:00)
[2016-03-27] MEDS: PLAVIX PO SCH (09:06)
[2016-03-27] MEDS: PEPCID PO SCH ×2 (09:06→21:02)
--- NOTE | 2016-03-27 09:26 | Progress Note ---
Assessment and Plan Assessment and plan: Acute respiratory failure due to COPD exacerbation. She is still orally intubated on ventilatory support nebulizers, IV steroids, Empiric antibiotics, wean as tolerated and extubate/ pulmonary lying --Acute exacerbation of COPD Continue oxygen support, nebulizers, IV steroids IV antibiotics inhalation steroids and supportive care Anemia. Hgb 7.8 today. Acute on chronic kidney disease Probably secondary to ATN. IV hydration. Creatinine 1.2 today. Encephalopathy /Opiate overdose; accidental, patient more alert Hypotension/shock,Improved, off pressors SIRS; blood cultures urine cultures Lactic acid level within normal limits, empiric antibiotics ID evaluation if needed Metabolic acidosis secondary to acute renal failure Lactate levels within normal limits, IV fluids and replacement therapy as needed Anemia, hemoglobin increased to 8,no external evidence of bleeding, Patient's baseline hemoglobin is 10-11 DVT prophylaxis; with Lovenox, Patient full CODE STATUS -- History Interval history: Patient with acute respiratory failure, still intubated Hospitalist Physical - Physical exam Narrative exam: Gen: Not in acute distress, intubated Neck: No JVD Lungs: Bilateral rhonchi, no crackles. Hear:S1 and S2 reg, no murmurs,rubs or gallop Abd: soft, NT, ND, Normal bowel sounds Ext: No edema, no clubbing , no cyanosis Neuro: sedated, intubated, responsive - Constitutional Vitals: Temp Pulse Resp BP Pulse Ox 99.8 F H 109 H 20 148/80 95 03/27/16 08:00 03/27/16 08:38 03/27/16 08:00 03/27/16 08:38 03/27/16 08:38 General appearance: Present: no acute distress, well-nourished, obese, other ( intubated on ventilatory support) Results - Labs CBC & Chem 7: 03/27/16 06:00 03/27/16 06:00 Labs: Laboratory Last Values WBC 6.2 K/mm3 (4.5-11.0) 03/27/16 06:00 RBC 2.46 M/mm3 (3.65-5.03) L 03/27/16 06:00 Hgb 7.8 gm/dl (10.1-14.3) L 03/27/16 06:00 Hct 23.7 % (30.3-42.9) L 03/27/16 06:00 MCV 96 fl (79-97) 03/27/16 06:00 MCH 32 pg (28-32) 03/27/16 06:00 MCHC 33 % (30-34) 03/27/16 06:00 RDW 14.3 % (13.2-15.2) 03/27/16 06:00 Plt Count 138 K/mm3 (140-440) L 03/27/16 06:00 Lymph % (Auto) 22.9 % (13.4-35.0) 03/27/16 06:00 [place]ahan % (Auto) 12.5 % (0.0-7.3) H 03/27/16 06:00 Eos % (Auto) 1.1 % (0.0-4.3) 03/27/16 06:00 Baso % (Auto) 0.4 % (0.0-1.8) 03/27/16 06:00 Lymph # 1.4 K/mm3 (1.2-5.4) 03/27/16 06:00 Callahan # 0.8 K/mm3 (0.0-0.8) 03/27/16 06:00 Eos # 0.1 K/mm3 (0.0-0.4) 03/27/16 06:00 Baso # 0.0 K/mm3 (0.0-0.1) 03/27/16 06:00 Add Manual Diff Complete 03/25/16 04:30 Total Counted 100 03/25/16 04:30 Seg Neutrophils % 63.1 % (40.0-70.0) 03/27/16 06:00 Seg Neuts % (Manual) 64.0 % (40.0-70.0) 03/25/16 04:30 Band Neutrophils % 18.0 % 03/25/16 04:30 Lymphocytes % (Manual) 10.0 % (13.4-35.0) L 03/25/16 04:30 Reactive Lymphs % (Man) 0 % 03/25/16 04:30 Monocytes % (Manual) 7.0 % (0.0-7.3) 03/25/16 04:30 Eosinophils % (Manual) 1.0 % (0.0-4.3) 03/25/16 04:30 Basophils % (Manual) 0 % (0.0-1.8) 03/25/16 04:30 Metamyelocytes % 0 % 03/25/16 04:30 Myelocytes % 0 % 03/25/16 04:30 Promyelocytes % 0 % 03/25/16 04:30 Blast Cells % 0 % 03/25/16 04:30 Nucleated RBC % Not Reportable 03/25/16 04:30 Seg Neutrophils # 3.9 K/mm3 (1.8-7.7) 03/27/16 06:00 Seg Neutrophils # Man 4.7 K/mm3 (1.8-7.7) 03/25/16 04:30 Band Neutrophils # 1.3 K/mm3 03/25/16 04:30 Lymphocytes # (Manual) 0.7 K/mm3 (1.2-5.4) L 03/25/16 04:30 Abs React Lymphs (Man) 0.0 K/mm3 03/25/16 04:30 Monocytes # (Manual) 0.5 K/mm3 (0.0-0.8) 03/25/16 04:30 Eosinophils # (Manual) 0.1 K/mm3 (0.0-0.4) 03/25/16 04:30 Basophils # (Manual) 0.0 K/mm3 (0.0-0.1) 03/25/16 04:30 Metamyelocytes # 0.0 K/mm3 03/25/16 04:30 Myelocytes # 0.0 K/mm3 03/25/16 04:30 Promyelocytes # 0.0 K/mm3 03/25/16 04:30 Blast Cells # 0.0 K/mm3 03/25/16 04:30 WBC Morphology Not Reportable 03/25/16 04:30 Hypersegmented Neuts Not Reportable 03/25/16 04:30 Hyposegmented Neuts Not Reportable 03/25/16 04:30 Hypogranular Neuts Not Reportable 03/25/16 04:30 Smudge Cells Not Reportable 03/25/16 04:30 Toxic Granulation Not Reportable 03/25/16 04:30 Toxic Vacuolation Not Reportable 03/25/16 04:30 Dohle Bodies Not Reportable 03/25/16 04:30 Pelger-Huet Anomaly Not Reportable 03/25/16 04:30 Sameer Rods Not Reportable 03/25/16 04:30 Platelet Estimate Appears decreased 03/25/16 04:30 Clumped Platelets Not Reportable 03/25/16 04:30 Plt Clumps, EDTA Not Reportable 03/25/16 04:30 Large Platelets Not Reportable 03/25/16 04:30 Giant Platelets Not Reportable 03/25/16 04:30 Platelet Satelliting Not Reportable 03/25/16 04:30 Plt Morphology Comment Not Reportable 03/25/16 04:30 RBC Morphology Not Reportable 03/25/16 04:30 Dimorphic RBCs Not Reportable 03/25/16 04:30 Polychromasia Not Reportable 03/25/16 04:30 Hypochromasia Not Reportable 03/25/16 04:30 Poikilocytosis Few 03/25/16 04:30 Anisocytosis Not Reportable 03/25/16 04:30 Microcytosis Not Reportable 03/25/16 04:30 Macrocytosis Not Reportable 03/25/16 04:30 Spherocytes Not Reportable 03/25/16 04:30 Pappenheimer Bodies Not Reportable 03/25/16 04:30 Sickle Cells Not Reportable 03/25/16 04:30 Target Cells Not Reportable 03/25/16 04:30 Tear Drop Cells Not Reportable 03/25/16 04:30 Ovalocytes Few 03/25/16 04:30 Helmet Cells Not Reportable 03/25/16 04:30 [place] Bodies Not Reportable 03/25/16 04:30 [place] Rings Not Reportable 03/25/16 04:30 Quail Cells Not Reportable 03/25/16 04:30 Bite Cells Not Reportable 03/25/16 04:30 Crenated Cell Not Reportable 03/25/16 04:30 Elliptocytes Not Reportable 03/25/16 04:30 Acanthocytes (Spur) Not Reportable 03/25/16 04:30 Rouleaux Not Reportable 03/25/16 04:30 Hemoglobin C Crystals Not Reportable 03/25/16 04:30 Schistocytes Not Reportable 03/25/16 04:30 Malaria parasites Not Reportable 03/25/16 04:30 Konstantin Bodies Not Reportable 03/25/16 04:30 Hem Pathologist Commnt No 03/25/16 04:30 PT 16.8 Sec. (12.2-14.9) H 03/23/16 18:56 INR 1.37 (0.87-1.13) H 03/23/16 18:56 APTT 28.7 Sec. (24.2-36.6) 03/23/16 18:56 POC ABG pH 7.387 (7.35-7.45) 03/26/16 05:32 POC ABG pCO2 31.8 (35-45) L 03/26/16 05:32 POC ABG pO2 83 (80-105) 03/26/16 05:32 POC ABG HCO3 19.1 03/26/16 05:32 POC ABG Total CO2 20 03/26/16 05:32 POC ABG O2 Sat 96 03/26/16 05:32 POC ABG Base Excess -6 03/26/16 05:32 FiO2 35 % 03/26/16 05:32 Sodium 145 mmol/L (137-145) 03/27/16 06:00 Potassium 3.7 mmol/L (3.6-5.0) 03/27/16 06:00 Chloride 106.4 mmol/L (98-107) 03/27/16 06:00 Carbon Dioxide 27 mmol/L (22-30) 03/27/16 06:00 Anion Gap 15 mmol/L 03/27/16 06:00 BUN 14 mg/dL (7-17) 03/27/16 06:00 Creatinine 1.2 mg/dL (0.7-1.2) 03/27/16 06:00 Estimated GFR 45 ml/min 03/27/16 06:00 BUN/Creatinine Ratio 11.66 % 03/27/16 06:00 Glucose 92 mg/dL (65-100) 03/27/16 06:00 POC Glucose 90 (70-105) 03/27/16 06:05 Lactic Acid 1.4 mmol/L (0.7-2.0) 03/23/16 20:10 Calcium 7.6 mg/dL (8.4-10.2) L 03/27/16 06:00 Phosphorus 3.8 mg/dL (2.5-4.5) 03/25/16 04:30 Magnesium 1.7 mg/dL (1.7-2.3) 03/27/16 06:00 Total Bilirubin 0.2 mg/dL (0.1-1.2) 03/25/16 04:30 Direct Bilirubin < 0.2 mg/dL (0-0.2) 03/25/16 04:30 Indirect Bilirubin 0.0 mg/dL 03/25/16 04:30 AST 20 units/L (5-40) 03/25/16 04:30 ALT 12 units/L (7-56) 03/25/16 04:30 Alkaline Phosphatase 86 units/L (35-129) 03/25/16 04:30 Total Protein 5.0 g/dL (6.3-8.2) L D 03/25/16 04:30 Albumin 2.4 g/dL (3.9-5) L 03/25/16 04:30 Albumin/Globulin Ratio 0.9 % 03/25/16 04:30 TSH 0.264 mlU/mL (0.270-4.200) L 03/23/16 17:33 Urine Color Yellow (Yellow) 03/23/16 20:13 Urine Turbidity Slightly-cloudy (Clear) 03/23/16 20:13 Urine pH 5.0 (5.0-7.0) 03/23/16 20:13 Ur Specific Virgie 1.016 (1.003-1.030) 03/23/16 20:13 Urine Protein 100 mg/dl mg/dL (Negative) 03/23/16 20:13 Urine Glucose (UA) Neg mg/dL (Negative) 03/23/16 20:13 Urine Ketones Neg mg/dL (Negative) 03/23/16 20:13 Urine Blood Mod (Negative) 03/23/16 20:13 Urine Nitrite Neg (Negative) 03/23/16 20:13 Urine Bilirubin Neg (Negative) 03/23/16 20:13 Urine Urobilinogen < 2.0 mg/dL (<2.0) 03/23/16 20:13 Ur Leukocyte Esterase Neg (Negative) 03/23/16 20:13 Urine WBC (Auto) < 1.0 /HPF (0.0-6.0) 03/23/16 20:13 Urine RBC (Auto) < 1.0 /HPF (0.0-6.0) 03/23/16 20:13 U Epithel Cells (Auto) < 1.0 /HPF (0-13.0) 03/23/16 20:13 Urine Mucus Few /HPF 03/23/16 20:13 Salicylates 0.6 mg/dL (2.8-20.0) L 03/23/16 17:33 Urine Opiates Screen Presumptive positive 03/23/16 20:13 Urine Methadone Screen Presumptive negative 03/23/16 20:13 Acetaminophen < 15.0 ug/mL (10.0-30.0) 03/23/16 17:33 Ur Barbiturates Screen Presumptive negative 03/23/16 20:13 Ur Phencyclidine Scrn Presumptive negative 03/23/16 20:13 Ur Amphetamines Screen Presumptive negative 03/23/16 20:13 U Benzodiazepines Scrn Presumptive negative 03/23/16 20:13 Urine Cocaine Screen Presumptive negative 03/23/16 20:13 U Marijuana (THC) Screen Presumptive negative 03/23/16 20:13 Drugs of Abuse Note Disclamer 03/23/16 20:13 Plasma/Serum Alcohol < 0.01 gm% (0-0.07) 03/23/16 17:45 Blood Type B NEGATIVE 03/23/16 19:07 Antibody Screen Negative 03/23/16 19:07
--- NOTE | 2016-03-27 09:57 | Progress Note ---
Assessment and Plan - Patient Problems (1) Respiratory failure Current Visit: Yes Status: Acute Qualifiers: Chronicity: acute Respiratory failure complication: hypoxia Qualified Code(s): J96.01 - Acute respiratory failure with hypoxia Plan to address problem: Continue with mechanical ventilatory support, daily SBTs as tolerated. Lung protective strategies. Analgesia and agitation management HOB >30, aspiration precautions. Nutritional support. VAP bundle and critical care bundles addressed. VTE and stress ulcer prophylaxis (2) Metabolic acidosis Current Visit: Yes Status: Acute Plan to address problem: Continue with bicarb infusion while monitoring fluid status closely. Monitor sodium levels (3) Accidental drug overdose Current Visit: No Status: Acute (4) Acute renal failure Current Visit: Yes Status: Acute Qualifiers: Acute renal failure type: unspecified Qualified Code(s): N17.9 - Acute kidney failure, unspecified Plan to address problem: Avoid nephrotoxic medications. Adjust medication dosages for [facility] Nephrology following (5) Altered mental status Current Visit: Yes Status: Acute Qualifiers: Altered mental status type: unspecified Qualified Code(s): R41.82 - Altered mental status, unspecified Plan to address problem: Continue to monitor closely. Probably toxic and metabolic from metabolic derangements and accidental overdose. Continue with aspiration precautions Subjective Date of service: 03/27/16 Interval history: This is 65 year old white female admitted with drug overdose, altered mental status and hypotension.Patient intubated and placed on mechanical ventilation.Patient has history of hypertension, chronic kidney disease , DM and COPD.Patient has history of smoking and chronic narcotic drug use for chronic pain. Current smoking status not known. No history of alcohol. Allergic to sulfa.Drug screen positive for Opiates. 03/26/16 Patient less agitated. Still on mechanical ventilation. RT attempted PSV today 02/12- very low lung volumes though she was more awake and alert. High grade fevers overnight- cultures were sent . Currently on renally dosed Zosyn, metabolic acidosis improving on bicarbonate infusion. On heparin and famotidine for VTE/stress ulcer prophylaxis Today 03/27/2016 Much better. Awake and alert, obeying one step commands. Initiate SBTs as tolerated. Objective - Exam Narrative Exam: Gen: Not in acute distress, intubated Neck: No JVD Lungs: Bilateral rhonchi, no crackles. Hear:S1 and S2 reg, no murmurs,rubs or gallop Abd: soft, NT, ND, Normal bowel sounds Ext: No edema, no clubbing , no cyanosis Neuro: sedated, intubated, responsive Vital Signs - 12hr 03/26/16 03/26/16 03/26/16 22:00 22:30 22:48 Temperature Pulse Rate 92 H 90 87 Pulse Rate [ Bilateral] Pulse Rate [ From Monitor] Respiratory 20 20 20 Rate Respiratory Rate [Bilateral ] Blood Pressure 122/54 122/54 105/52 O2 Sat by Pulse 97 96 97 Oximetry 03/26/16 03/26/16 03/26/16 23:00 23:30 23:44 Temperature Pulse Rate 83 100 H 84 Pulse Rate [ Bilateral] Pulse Rate [ From Monitor] Respiratory 20 19 Rate Respiratory Rate [Bilateral ] Blood Pressure 117/50 117/50 132/59 O2 Sat by Pulse 100 98 97 Oximetry 03/27/16 03/27/16 03/27/16 00:00 00:06 00:30 Temperature 99.8 F H Pulse Rate 78 74 Pulse Rate [ Bilateral] Pulse Rate [ 90 From Monitor] Respiratory 20 20 Rate Respiratory Rate [Bilateral ] Blood Pressure 132/61 141/61 O2 Sat by Pulse 97 99 Oximetry 03/27/16 03/27/16 03/27/16 01:00 01:30 02:00 Temperature Pulse Rate 82 79 75 Pulse Rate [ Bilateral] Pulse Rate [ From Monitor] Respiratory 21 20 20 Rate Respiratory Rate [Bilateral ] Blood Pressure 133/68 137/68 135/61 O2 Sat by Pulse 98 99 99 Oximetry 03/27/16 03/27/16 03/27/16 02:30 03:00 03:30 Temperature Pulse Rate 82 84 82 Pulse Rate [ Bilateral] Pulse Rate [ From Monitor] Respiratory 20 20 20 Rate Respiratory Rate [Bilateral ] Blood Pressure 135/61 107/78 116/51 O2 Sat by Pulse 98 98 97 Oximetry 03/27/16 03/27/16 03/27/16 03:44 04:00 04:30 Temperature Pulse Rate 88 88 78 Pulse Rate [ Bilateral] Pulse Rate [ 82 From Monitor] Respiratory 20 20 20 Rate Respiratory Rate [Bilateral ] Blood Pressure 116/51 128/61 104/53 O2 Sat by Pulse 98 97 96 Oximetry 03/27/16 03/27/16 03/27/16 04:40 04:42 05:00 Temperature 99.7 F H Pulse Rate 97 H 92 H Pulse Rate [ Bilateral] Pulse Rate [ From Monitor] Respiratory 20 20 Rate Respiratory Rate [Bilateral ] Blood Pressure 128/61 132/63 O2 Sat by Pulse 96 95 Oximetry 03/27/16 03/27/16 03/27/16 05:30 05:39 06:00 Temperature Pulse Rate 100 H 95 H 92 H Pulse Rate [ Bilateral] Pulse Rate [ From Monitor] Respiratory 27 H 20 Rate Respiratory Rate [Bilateral ] Blood Pressure 132/63 133/66 123/61 O2 Sat by Pulse 97 97 96 Oximetry 03/27/16 03/27/16 03/27/16 06:30 07:00 07:12 Temperature Pulse Rate 105 H 87 84 Pulse Rate [ Bilateral] Pulse Rate [ From Monitor] Respiratory 20 20 20 Rate Respiratory Rate [Bilateral ] Blood Pressure 123/61 120/65 128/64 O2 Sat by Pulse 97 98 98 Oximetry 03/27/16 03/27/16 03/27/16 07:30 08:00 08:02 Temperature 99.8 F H Pulse Rate 79 70 70 Pulse Rate [ 92 H Bilateral] Pulse Rate [ 70 From Monitor] Respiratory 20 20 Rate Respiratory 20 Rate [Bilateral ] Blood Pressure 116/56 123/54 123/54 O2 Sat by Pulse 96 97 98 Oximetry 03/27/16 08:38 Temperature Pulse Rate 109 H Pulse Rate [ Bilateral] Pulse Rate [ From Monitor] Respiratory Rate Respiratory Rate [Bilateral ] Blood Pressure 148/80 O2 Sat by Pulse 95 Oximetry Constitutional: lethargic, asleep, other (On mechanical ventilation) Eyes: non-icteric ENT: oropharynx moist Neck: supple, no JVD Ascultation: Bilateral: diminished breath sounds Cardiovascular: regular rate and rhythm Gastrointestinal: normoactive bowel sounds, soft, non-tender, non-distended Integumentary: normal Extremities: no cyanosis, no edema Neurologic: non-focal exam, unable to assess Psychiatric: other (Can not assess at this time.) CBC and BMP: 03/31/16 06:30 03/31/16 06:30 ABG, PT/INR, D-dimer: ABG POC ABG pH 7.387 (7.35-7.45) 03/26/16 05:32 POC ABG pCO2 31.8 (35-45) L 03/26/16 05:32 POC ABG pO2 83 (80-105) 03/26/16 05:32 POC ABG HCO3 19.1 03/26/16 05:32 POC ABG Total CO2 20 03/26/16 05:32 POC ABG O2 Sat 96 03/26/16 05:32 PT/INR, D-dimer PT 16.8 Sec. (12.2-14.9) H 03/23/16 18:56 INR 1.37 (0.87-1.13) H 03/23/16 18:56 Abnormal lab findings: Abnormal Labs 03/24/16 03/24/16 03/24/16 00:10 05:04 05:12 RBC 2.42 L Hgb 7.8 L Hct 23.4 L MCV 99 H MCH RDW Plt Count 139 L [place] % (Auto) 10.4 H Lymph # 0.9 L Seg Neutrophils % 71.0 H Lymphocytes % (Manual) Lymphocytes # (Manual) POC ABG pH 7.279 L POC ABG pCO2 33.6 L POC ABG pO2 112 H Sodium Chloride Carbon Dioxide BUN Creatinine Glucose POC Glucose 144 H Calcium Total Protein Albumin 03/24/16 03/24/16 03/25/16 05:12 05:50 04:30 RBC 2.55 L Hgb 8.0 L Hct 25.0 L MCV 98 H MCH RDW 15.6 H Plt Count [place] % (Auto) Lymph # Seg Neutrophils % Lymphocytes % (Manual) 10.0 L Lymphocytes # (Manual) 0.7 L POC ABG pH POC ABG pCO2 POC ABG pO2 Sodium Chloride 112.3 H Carbon Dioxide 17 L BUN 51 H Creatinine 2.3 H Glucose POC Glucose 107 H Calcium 7.0 L Total Protein Albumin 03/25/16 03/25/16 03/25/16 04:30 04:58 10:17 RBC Hgb Hct MCV MCH RDW Plt Count [place] % (Auto) Lymph # Seg Neutrophils % Lymphocytes % (Manual) Lymphocytes # (Manual) POC ABG pH 7.285 L 7.261 L POC ABG pCO2 27.2 L 28.6 L POC ABG pO2 112 H Sodium 148 H Chloride 116.9 H Carbon Dioxide 14 L BUN 38 H Creatinine 1.7 H Glucose POC Glucose Calcium 7.1 L Total Protein 5.0 L D Albumin 2.4 L 03/26/16 03/26/16 03/26/16 05:30 05:30 05:32 RBC 2.37 L Hgb 7.7 L Hct 23.0 L MCV MCH 33 H RDW Plt Count 134 L [place] % (Auto) 15.2 H Lymph # 0.9 L Seg Neutrophils % Lymphocytes % (Manual) Lymphocytes # (Manual) POC ABG pH POC ABG pCO2 31.8 L POC ABG pO2 Sodium 147 H Chloride 112.3 H Carbon Dioxide 21 L D BUN 20 H Creatinine 1.3 H Glucose 121 H POC Glucose Calcium 7.6 L Total Protein Albumin 03/26/16 03/26/16 03/26/16 06:05 11:46 17:24 RBC Hgb Hct MCV MCH RDW Plt Count [place] % (Auto) Lymph # Seg Neutrophils % Lymphocytes % (Manual) Lymphocytes # (Manual) POC ABG pH POC ABG pCO2 POC ABG pO2 Sodium Chloride Carbon Dioxide BUN Creatinine Glucose POC Glucose 115 H 146 H 134 H Calcium Total Protein Albumin 03/26/16 03/27/16 03/27/16 23:41 06:00 06:00 RBC 2.46 L Hgb 7.8 L Hct 23.7 L MCV MCH RDW Plt Count 138 L [place] % (Auto) 12.5 H Lymph # Seg Neutrophils % Lymphocytes % (Manual) Lymphocytes # (Manual) POC ABG pH POC ABG pCO2 POC ABG pO2 Sodium Chloride Carbon Dioxide BUN Creatinine Glucose POC Glucose 155 H Calcium 7.6 L Total Protein Albumin Chest x-ray: image reviewed
[2016-03-27] MEDS: CATAPRES PO SCH ×2 (13:00→21:02)
[2016-03-27] MEDS: TYLENOL FEEDTUBE PRN (17:49)
[2016-03-27] MEDS: XALATAN 0.005% OU SCH (21:04)
[2016-03-27] MEDS ORDERED: D5W 1,000 ML IV SCH (23:00)
[2016-03-28] MEDS: fentaNYL DRIP Premix 100 ML IV SCH ×3 (00:35→19:51)
[2016-03-28] MEDS: NOVOLOG SUB-Q SCH ×3 (00:36→12:00)
[2016-03-28 05:16] LABS: ISTAT Base Excess -1; ISTAT HCO3 23.5; ISTAT PCO2 34.9 (35-45); ISTAT PH 7.437 (7.35-7.45); ISTAT PO2 80 (80-105); ISTAT SO2 96; ISTAT TCO2 25
[2016-03-28] MEDS: HEPARIN SUB-Q SCH ×2 (05:32→21:05)
[2016-03-28] MEDS: CATAPRES PO SCH ×3 (05:33→21:05)
[2016-03-28] MEDS: DUONEB 0.5 MG-3 MG/3 ML SOLN IH SCH ×3 (08:26→19:33)
[2016-03-28] MEDS: NEURONTIN PO SCH ×2 (08:36→21:06)
[2016-03-28] MEDS: TYLENOL FEEDTUBE PRN (08:54)
[2016-03-28] MEDS: PLAVIX PO SCH (09:31)
[2016-03-28] MEDS: PEPCID PO SCH ×2 (09:32→21:05)
--- NOTE | 2016-03-28 10:47 | Progress Note ---
Assessment and Plan Assessment and plan: Acute respiratory failure due to COPD exacerbation. She is still orally intubated on ventilatory support nebulizers, IV steroids, Empiric antibiotics, wean as tolerated and extubate. Pulm following. --Acute exacerbation of COPD Continue oxygen support, nebulizers, IV steroids IV antibiotics inhalation steroids and supportive care Anemia. Hgb 7.8 , most recent Acute on chronic kidney disease, improving Probably secondary to ATN. IV hydration. Creatinine 1.2 . Encephalopathy /Opiate overdose; accidental, patient more alert Hypotension/shock,Improved, off pressors SIRS; blood cultures urine cultures Lactic acid level within normal limits, empiric antibiotics ID evaluation if needed Metabolic acidosis secondary to acute renal failure Lactate levels within normal limits, IV fluids and replacement therapy as needed Anemia, hemoglobin 7.8. No external evidence of bleeding, Patient's baseline hemoglobin is 10-11 DVT prophylaxis; with Lovenox, FULL CODE STATUS -- History Interval history: Patient with acute respiratory failure, still intubated, responsive Hospitalist Physical - Physical exam Narrative exam: Gen: Not in acute distress, intubated Neck: No JVD Lungs: Bilateral rhonchi, no crackles. Hear:S1 and S2 reg, no murmurs,rubs or gallop Abd: soft, NT, ND, Normal bowel sounds Ext: No edema, no clubbing , no cyanosis Neuro: sedated, intubated, responsive - Constitutional Vitals: Temp Pulse Resp BP Pulse Ox 102.9 F H 80 21 109/46 94 03/28/16 08:00 03/28/16 09:00 03/28/16 09:00 03/28/16 09:00 03/28/16 09:00 General appearance: Present: no acute distress, well-nourished, obese, other ( intubated on ventilatory support) Results - Labs CBC & Chem 7: 03/27/16 06:00 03/27/16 06:00 Labs: Laboratory Last Values WBC 6.2 K/mm3 (4.5-11.0) 03/27/16 06:00 RBC 2.46 M/mm3 (3.65-5.03) L 03/27/16 06:00 Hgb 7.8 gm/dl (10.1-14.3) L 03/27/16 06:00 Hct 23.7 % (30.3-42.9) L 03/27/16 06:00 MCV 96 fl (79-97) 03/27/16 06:00 MCH 32 pg (28-32) 03/27/16 06:00 MCHC 33 % (30-34) 03/27/16 06:00 RDW 14.3 % (13.2-15.2) 03/27/16 06:00 Plt Count 138 K/mm3 (140-440) L 03/27/16 06:00 Lymph % (Auto) 22.9 % (13.4-35.0) 03/27/16 06:00 Long % (Auto) 12.5 % (0.0-7.3) H 03/27/16 06:00 Eos % (Auto) 1.1 % (0.0-4.3) 03/27/16 06:00 Baso % (Auto) 0.4 % (0.0-1.8) 03/27/16 06:00 Lymph # 1.4 K/mm3 (1.2-5.4) 03/27/16 06:00 Long # 0.8 K/mm3 (0.0-0.8) 03/27/16 06:00 Eos # 0.1 K/mm3 (0.0-0.4) 03/27/16 06:00 Baso # 0.0 K/mm3 (0.0-0.1) 03/27/16 06:00 Add Manual Diff Complete 03/25/16 04:30 Total Counted 100 03/25/16 04:30 Seg Neutrophils % 63.1 % (40.0-70.0) 03/27/16 06:00 Seg Neuts % (Manual) 64.0 % (40.0-70.0) 03/25/16 04:30 Band Neutrophils % 18.0 % 03/25/16 04:30 Lymphocytes % (Manual) 10.0 % (13.4-35.0) L 03/25/16 04:30 Reactive Lymphs % (Man) 0 % 03/25/16 04:30 Monocytes % (Manual) 7.0 % (0.0-7.3) 03/25/16 04:30 Eosinophils % (Manual) 1.0 % (0.0-4.3) 03/25/16 04:30 Basophils % (Manual) 0 % (0.0-1.8) 03/25/16 04:30 Metamyelocytes % 0 % 03/25/16 04:30 Myelocytes % 0 % 03/25/16 04:30 Promyelocytes % 0 % 03/25/16 04:30 Blast Cells % 0 % 03/25/16 04:30 Nucleated RBC % Not Reportable 03/25/16 04:30 Seg Neutrophils # 3.9 K/mm3 (1.8-7.7) 03/27/16 06:00 Seg Neutrophils # Man 4.7 K/mm3 (1.8-7.7) 03/25/16 04:30 Band Neutrophils # 1.3 K/mm3 03/25/16 04:30 Lymphocytes # (Manual) 0.7 K/mm3 (1.2-5.4) L 03/25/16 04:30 Abs React Lymphs (Man) 0.0 K/mm3 03/25/16 04:30 Monocytes # (Manual) 0.5 K/mm3 (0.0-0.8) 03/25/16 04:30 Eosinophils # (Manual) 0.1 K/mm3 (0.0-0.4) 03/25/16 04:30 Basophils # (Manual) 0.0 K/mm3 (0.0-0.1) 03/25/16 04:30 Metamyelocytes # 0.0 K/mm3 03/25/16 04:30 Myelocytes # 0.0 K/mm3 03/25/16 04:30 Promyelocytes # 0.0 K/mm3 03/25/16 04:30 Blast Cells # 0.0 K/mm3 03/25/16 04:30 WBC Morphology Not Reportable 03/25/16 04:30 Hypersegmented Neuts Not Reportable 03/25/16 04:30 Hyposegmented Neuts Not Reportable 03/25/16 04:30 Hypogranular Neuts Not Reportable 03/25/16 04:30 Smudge Cells Not Reportable 03/25/16 04:30 Toxic Granulation Not Reportable 03/25/16 04:30 Toxic Vacuolation Not Reportable 03/25/16 04:30 Dohle Bodies Not Reportable 03/25/16 04:30 Pelger-Huet Anomaly Not Reportable 03/25/16 04:30 Sameer Rods Not Reportable 03/25/16 04:30 Platelet Estimate Appears decreased 03/25/16 04:30 Clumped Platelets Not Reportable 03/25/16 04:30 Plt Clumps, EDTA Not Reportable 03/25/16 04:30 Large Platelets Not Reportable 03/25/16 04:30 Giant Platelets Not Reportable 03/25/16 04:30 Platelet Satelliting Not Reportable 03/25/16 04:30 Plt Morphology Comment Not Reportable 03/25/16 04:30 RBC Morphology Not Reportable 03/25/16 04:30 Dimorphic RBCs Not Reportable 03/25/16 04:30 Polychromasia Not Reportable 03/25/16 04:30 Hypochromasia Not Reportable 03/25/16 04:30 Poikilocytosis Few 03/25/16 04:30 Anisocytosis Not Reportable 03/25/16 04:30 Microcytosis Not Reportable 03/25/16 04:30 Macrocytosis Not Reportable 03/25/16 04:30 Spherocytes Not Reportable 03/25/16 04:30 Pappenheimer Bodies Not Reportable 03/25/16 04:30 Sickle Cells Not Reportable 03/25/16 04:30 Target Cells Not Reportable 03/25/16 04:30 Tear Drop Cells Not Reportable 03/25/16 04:30 Ovalocytes Few 03/25/16 04:30 Helmet Cells Not Reportable 03/25/16 04:30 [place] Bodies Not Reportable 03/25/16 04:30 [place] Rings Not Reportable 03/25/16 04:30 [place] Cells Not Reportable 03/25/16 04:30 Bite Cells Not Reportable 03/25/16 04:30 Crenated Cell Not Reportable 03/25/16 04:30 Elliptocytes Not Reportable 03/25/16 04:30 Acanthocytes (Spur) Not Reportable 03/25/16 04:30 Rouleaux Not Reportable 03/25/16 04:30 Hemoglobin C Crystals Not Reportable 03/25/16 04:30 Schistocytes Not Reportable 03/25/16 04:30 Malaria parasites Not Reportable 03/25/16 04:30 Konstantin Bodies Not Reportable 03/25/16 04:30 Hem Pathologist Commnt No 03/25/16 04:30 PT 16.8 Sec. (12.2-14.9) H 03/23/16 18:56 INR 1.37 (0.87-1.13) H 03/23/16 18:56 APTT 28.7 Sec. (24.2-36.6) 03/23/16 18:56 POC ABG pH 7.437 (7.35-7.45) 03/28/16 04:53 POC ABG pCO2 34.9 (35-45) L 03/28/16 04:53 POC ABG pO2 80 (80-105) 03/28/16 04:53 POC ABG HCO3 23.5 03/28/16 04:53 POC ABG Total CO2 25 03/28/16 04:53 POC ABG O2 Sat 96 03/28/16 04:53 POC ABG Base Excess -1 03/28/16 04:53 FiO2 35 % 03/28/16 04:53 Sodium 145 mmol/L (137-145) 03/27/16 06:00 Potassium 3.7 mmol/L (3.6-5.0) 03/27/16 06:00 Chloride 106.4 mmol/L (98-107) 03/27/16 06:00 Carbon Dioxide 27 mmol/L (22-30) 03/27/16 06:00 Anion Gap 15 mmol/L 03/27/16 06:00 BUN 14 mg/dL (7-17) 03/27/16 06:00 Creatinine 1.2 mg/dL (0.7-1.2) 03/27/16 06:00 Estimated GFR 45 ml/min 03/27/16 06:00 BUN/Creatinine Ratio 11.66 % 03/27/16 06:00 Glucose 92 mg/dL (65-100) 03/27/16 06:00 POC Glucose 136 (70-105) H 03/27/16 23:51 Lactic Acid 1.4 mmol/L (0.7-2.0) 03/23/16 20:10 Calcium 7.6 mg/dL (8.4-10.2) L 03/27/16 06:00 Phosphorus 3.8 mg/dL (2.5-4.5) 03/25/16 04:30 Magnesium 2.2 mg/dL (1.7-2.3) 03/28/16 05:30 Total Bilirubin 0.2 mg/dL (0.1-1.2) 03/25/16 04:30 Direct Bilirubin < 0.2 mg/dL (0-0.2) 03/25/16 04:30 Indirect Bilirubin 0.0 mg/dL 03/25/16 04:30 AST 20 units/L (5-40) 03/25/16 04:30 ALT 12 units/L (7-56) 03/25/16 04:30 Alkaline Phosphatase 86 units/L (35-129) 03/25/16 04:30 Total Protein 5.0 g/dL (6.3-8.2) L D 03/25/16 04:30 Albumin 2.4 g/dL (3.9-5) L 03/25/16 04:30 Albumin/Globulin Ratio 0.9 % 03/25/16 04:30 TSH 0.264 mlU/mL (0.270-4.200) L 03/23/16 17:33 Urine Color Yellow (Yellow) 03/23/16 20:13 Urine Turbidity Slightly-cloudy (Clear) 03/23/16 20:13 Urine pH 5.0 (5.0-7.0) 03/23/16 20:13 Ur Specific [place] 1.016 (1.003-1.030) 03/23/16 20:13 Urine Protein 100 mg/dl mg/dL (Negative) 03/23/16 20:13 Urine Glucose (UA) Neg mg/dL (Negative) 03/23/16 20:13 Urine Ketones Neg mg/dL (Negative) 03/23/16 20:13 Urine Blood Mod (Negative) 03/23/16 20:13 Urine Nitrite Neg (Negative) 03/23/16 20:13 Urine Bilirubin Neg (Negative) 03/23/16 20:13 Urine Urobilinogen < 2.0 mg/dL (<2.0) 03/23/16 20:13 Ur Leukocyte Esterase Neg (Negative) 03/23/16 20:13 Urine WBC (Auto) < 1.0 /HPF (0.0-6.0) 03/23/16 20:13 Urine RBC (Auto) < 1.0 /HPF (0.0-6.0) 03/23/16 20:13 U Epithel Cells (Auto) < 1.0 /HPF (0-13.0) 03/23/16 20:13 Urine Mucus Few /HPF 03/23/16 20:13 Salicylates 0.6 mg/dL (2.8-20.0) L 03/23/16 17:33 Urine Opiates Screen Presumptive positive 03/23/16 20:13 Urine Methadone Screen Presumptive negative 03/23/16 20:13 Acetaminophen < 15.0 ug/mL (10.0-30.0) 03/23/16 17:33 Ur Barbiturates Screen Presumptive negative 03/23/16 20:13 Ur Phencyclidine Scrn Presumptive negative 03/23/16 20:13 Ur Amphetamines Screen Presumptive negative 03/23/16 20:13 U Benzodiazepines Scrn Presumptive negative 03/23/16 20:13 Urine Cocaine Screen Presumptive negative 03/23/16 20:13 U Marijuana (THC) Screen Presumptive negative 03/23/16 20:13 Drugs of Abuse Note Disclamer 03/23/16 20:13 Plasma/Serum Alcohol < 0.01 gm% (0-0.07) 03/23/16 17:45 Blood Type B NEGATIVE 03/23/16 19:07 Antibody Screen Negative 03/23/16 19:07
--- NOTE | 2016-03-28 15:01 | Progress Note ---
Assessment and Plan - Patient Problems (1) Respiratory failure Current Visit: Yes Status: Acute Qualifiers: Chronicity: acute Respiratory failure complication: hypoxia Qualified Code(s): J96.01 - Acute respiratory failure with hypoxia Plan to address problem: Continue with mechanical ventilatory support, daily SBTs as tolerated. Lung protective strategies. Analgesia and agitation management HOB >30, aspiration precautions. Nutritional support. VAP bundle and critical care bundles addressed. VTE and stress ulcer prophylaxis (2) Metabolic acidosis Current Visit: Yes Status: Acute Plan to address problem: Continue with bicarb infusion while monitoring fluid status closely. Monitor sodium levels (3) Accidental drug overdose Current Visit: No Status: Acute (4) Acute renal failure Current Visit: Yes Status: Acute Qualifiers: Acute renal failure type: unspecified Qualified Code(s): N17.9 - Acute kidney failure, unspecified Plan to address problem: Avoid nephrotoxic medications. Adjust medication dosages for [facility] Nephrology following (5) Altered mental status Current Visit: Yes Status: Acute Qualifiers: Altered mental status type: unspecified Qualified Code(s): R41.82 - Altered mental status, unspecified Plan to address problem: Continue to monitor closely. Probably toxic and metabolic from metabolic derangements and accidental overdose. Continue with aspiration precautions Subjective Date of service: 03/28/16 Interval history: This is 65 year old white female admitted with drug overdose, altered mental status and hypotension.Patient intubated and placed on mechanical ventilation.Patient has history of hypertension, chronic kidney disease , DM and COPD.Patient has history of smoking and chronic narcotic drug use for chronic pain. Current smoking status not known. No history of alcohol. Allergic to sulfa.Drug screen positive for Opiates. 03/26/16 Patient less agitated. Still on mechanical ventilation. RT attempted PSV today 02/12- very low lung volumes though she was more awake and alert. High grade fevers overnight- cultures were sent . Currently on renally dosed Zosyn, metabolic acidosis improving on bicarbonate infusion. On heparin and famotidine for VTE/stress ulcer prophylaxis Today 03/28/2016 Much better. Awake and alert, obeying one step commands. Initiate SBTs as tolerated. Objective - Exam Narrative Exam: Gen: Not in acute distress, intubated Neck: No JVD Lungs: Bilateral rhonchi, no crackles. Hear:S1 and S2 reg, no murmurs,rubs or gallop Abd: soft, NT, ND, Normal bowel sounds Ext: No edema, no clubbing , no cyanosis Neuro: sedated, intubated, responsive Vital Signs - 12hr 03/28/16 03/28/16 03/28/16 03:00 03:28 03:30 Temperature Pulse Rate 82 87 79 Pulse Rate [ Bilateral] Pulse Rate [ From Monitor] Respiratory 15 19 13 Rate Respiratory Rate [Bilateral ] Blood Pressure 130/59 120/71 123/55 O2 Sat by Pulse 98 98 97 Oximetry 03/28/16 03/28/16 03/28/16 04:00 04:20 04:30 Temperature 101.1 F H Pulse Rate 91 H 93 H Pulse Rate [ Bilateral] Pulse Rate [ 90 From Monitor] Respiratory 17 18 18 Rate Respiratory Rate [Bilateral ] Blood Pressure 118/55 121/55 O2 Sat by Pulse 96 97 97 Oximetry 03/28/16 03/28/16 03/28/16 04:42 04:43 05:00 Temperature Pulse Rate 96 H 89 79 Pulse Rate [ Bilateral] Pulse Rate [ From Monitor] Respiratory 16 21 Rate Respiratory Rate [Bilateral ] Blood Pressure 121/55 121/55 121/55 O2 Sat by Pulse 98 99 97 Oximetry 03/28/16 03/28/16 03/28/16 05:30 05:33 06:00 Temperature Pulse Rate 92 H 90 78 Pulse Rate [ Bilateral] Pulse Rate [ From Monitor] Respiratory 16 19 Rate Respiratory Rate [Bilateral ] Blood Pressure 123/50 123/50 121/62 O2 Sat by Pulse 97 96 Oximetry 03/28/16 03/28/16 03/28/16 06:08 06:30 07:00 Temperature Pulse Rate 78 71 70 Pulse Rate [ Bilateral] Pulse Rate [ From Monitor] Respiratory 20 20 20 Rate Respiratory Rate [Bilateral ] Blood Pressure 121/62 116/50 113/53 O2 Sat by Pulse 97 96 96 Oximetry 03/28/16 03/28/16 03/28/16 07:30 08:00 08:02 Temperature 102.9 F H Pulse Rate 70 72 80 Pulse Rate [ 90 Bilateral] Pulse Rate [ From Monitor] Respiratory 24 20 17 Rate Respiratory 20 Rate [Bilateral ] Blood Pressure 109/50 115/48 115/48 O2 Sat by Pulse 97 98 96 Oximetry 03/28/16 03/28/16 03/28/16 08:30 09:00 09:01 Temperature Pulse Rate 78 80 81 Pulse Rate [ Bilateral] Pulse Rate [ From Monitor] Respiratory 20 21 21 Rate Respiratory Rate [Bilateral ] Blood Pressure 109/49 109/46 109/46 O2 Sat by Pulse 96 94 97 Oximetry 03/28/16 03/28/16 03/28/16 09:30 10:00 10:24 Temperature Pulse Rate 80 76 97 H Pulse Rate [ Bilateral] Pulse Rate [ From Monitor] Respiratory 18 21 12 Rate Respiratory Rate [Bilateral ] Blood Pressure 105/43 98/38 98/38 O2 Sat by Pulse 96 95 96 Oximetry 03/28/16 03/28/16 03/28/16 10:30 10:50 11:00 Temperature Pulse Rate 121 H 93 H 106 H Pulse Rate [ Bilateral] Pulse Rate [ From Monitor] Respiratory 23 19 14 Rate Respiratory Rate [Bilateral ] Blood Pressure 98/38 105/43 112/50 O2 Sat by Pulse 96 95 95 Oximetry 03/28/16 03/28/16 03/28/16 11:30 11:48 12:00 Temperature 100.6 F H Pulse Rate 73 85 82 Pulse Rate [ Bilateral] Pulse Rate [ 74 From Monitor] Respiratory 16 12 Rate Respiratory Rate [Bilateral ] Blood Pressure 98/38 93/38 79/50 O2 Sat by Pulse 95 94 96 Oximetry 03/28/16 03/28/16 03/28/16 12:02 12:30 13:00 Temperature Pulse Rate 75 74 63 Pulse Rate [ Bilateral] Pulse Rate [ From Monitor] Respiratory 13 15 20 Rate Respiratory Rate [Bilateral ] Blood Pressure 98/39 95/41 104/43 O2 Sat by Pulse 96 95 95 Oximetry 03/28/16 03/28/16 03/28/16 13:30 13:54 14:21 Temperature Pulse Rate 74 72 Pulse Rate [ 111 H Bilateral] Pulse Rate [ From Monitor] Respiratory 20 16 Rate Respiratory 25 H Rate [Bilateral ] Blood Pressure 112/46 112/46 O2 Sat by Pulse 97 97 Oximetry 03/28/16 14:58 Temperature Pulse Rate Pulse Rate [ Bilateral] Pulse Rate [ From Monitor] Respiratory Rate Respiratory Rate [Bilateral ] Blood Pressure 112/52 O2 Sat by Pulse Oximetry Constitutional: lethargic, asleep, other (On mechanical ventilation) Eyes: non-icteric ENT: oropharynx moist Neck: supple, no JVD Ascultation: Bilateral: diminished breath sounds Cardiovascular: regular rate and rhythm Gastrointestinal: normoactive bowel sounds, soft, non-tender, non-distended Integumentary: normal Extremities: no cyanosis, no edema Neurologic: unable to assess Psychiatric: other (Can not assess at this time.) CBC and BMP: 03/31/16 06:30 03/31/16 06:30 ABG, PT/INR, D-dimer: ABG POC ABG pH 7.437 (7.35-7.45) 03/28/16 04:53 POC ABG pCO2 34.9 (35-45) L 03/28/16 04:53 POC ABG pO2 80 (80-105) 03/28/16 04:53 POC ABG HCO3 23.5 03/28/16 04:53 POC ABG Total CO2 25 03/28/16 04:53 POC ABG O2 Sat 96 03/28/16 04:53 PT/INR, D-dimer PT 16.8 Sec. (12.2-14.9) H 03/23/16 18:56 INR 1.37 (0.87-1.13) H 03/23/16 18:56 Abnormal lab findings: Abnormal Labs 03/24/16 03/24/16 03/24/16 00:10 05:04 05:12 RBC 2.42 L Hgb 7.8 L Hct 23.4 L MCV 99 H MCH RDW Plt Count 139 L [place] % (Auto) 10.4 H Lymph # 0.9 L Seg Neutrophils % 71.0 H Lymphocytes % (Manual) Lymphocytes # (Manual) POC ABG pH 7.279 L POC ABG pCO2 33.6 L POC ABG pO2 112 H Sodium Chloride Carbon Dioxide BUN Creatinine Glucose POC Glucose 144 H Calcium Total Protein Albumin 03/24/16 03/24/16 03/25/16 05:12 05:50 04:30 RBC 2.55 L Hgb 8.0 L Hct 25.0 L MCV 98 H MCH RDW 15.6 H Plt Count [place] % (Auto) Lymph # Seg Neutrophils % Lymphocytes % (Manual) 10.0 L Lymphocytes # (Manual) 0.7 L POC ABG pH POC ABG pCO2 POC ABG pO2 Sodium Chloride 112.3 H Carbon Dioxide 17 L BUN 51 H Creatinine 2.3 H Glucose POC Glucose 107 H Calcium 7.0 L Total Protein Albumin 03/25/16 03/25/16 03/25/16 04:30 04:58 10:17 RBC Hgb Hct MCV MCH RDW Plt Count [place] % (Auto) Lymph # Seg Neutrophils % Lymphocytes % (Manual) Lymphocytes # (Manual) POC ABG pH 7.285 L 7.261 L POC ABG pCO2 27.2 L 28.6 L POC ABG pO2 112 H Sodium 148 H Chloride 116.9 H Carbon Dioxide 14 L BUN 38 H Creatinine 1.7 H Glucose POC Glucose Calcium 7.1 L Total Protein 5.0 L D Albumin 2.4 L 03/26/16 03/26/16 03/26/16 05:30 05:30 05:32 RBC 2.37 L Hgb 7.7 L Hct 23.0 L MCV MCH 33 H RDW Plt Count 134 L [place] % (Auto) 15.2 H Lymph # 0.9 L Seg Neutrophils % Lymphocytes % (Manual) Lymphocytes # (Manual) POC ABG pH POC ABG pCO2 31.8 L POC ABG pO2 Sodium 147 H Chloride 112.3 H Carbon Dioxide 21 L D BUN 20 H Creatinine 1.3 H Glucose 121 H POC Glucose Calcium 7.6 L Total Protein Albumin 03/26/16 03/26/16 03/26/16 06:05 11:46 17:24 RBC Hgb Hct MCV MCH RDW Plt Count [place] % (Auto) Lymph # Seg Neutrophils % Lymphocytes % (Manual) Lymphocytes # (Manual) POC ABG pH POC ABG pCO2 POC ABG pO2 Sodium Chloride Carbon Dioxide BUN Creatinine Glucose POC Glucose 115 H 146 H 134 H Calcium Total Protein Albumin 03/26/16 03/27/16 03/27/16 23:41 06:00 06:00 RBC 2.46 L Hgb 7.8 L Hct 23.7 L MCV MCH RDW Plt Count 138 L [place] % (Auto) 12.5 H Lymph # Seg Neutrophils % Lymphocytes % (Manual) Lymphocytes # (Manual) POC ABG pH POC ABG pCO2 POC ABG pO2 Sodium Chloride Carbon Dioxide BUN Creatinine Glucose POC Glucose 155 H Calcium 7.6 L Total Protein Albumin 03/27/16 03/27/16 03/27/16 11:25 17:37 18:01 RBC Hgb Hct MCV MCH RDW Plt Count [place] % (Auto) Lymph # Seg Neutrophils % Lymphocytes % (Manual) Lymphocytes # (Manual) POC ABG pH POC ABG pCO2 POC ABG pO2 Sodium Chloride Carbon Dioxide BUN Creatinine Glucose POC Glucose 163 H 173 H 171 H Calcium Total Protein Albumin 03/27/16 03/28/16 03/28/16 23:51 04:53 05:47 RBC Hgb Hct MCV MCH RDW Plt Count [place] % (Auto) Lymph # Seg Neutrophils % Lymphocytes % (Manual) Lymphocytes # (Manual) POC ABG pH POC ABG pCO2 34.9 L POC ABG pO2 Sodium Chloride Carbon Dioxide BUN Creatinine Glucose POC Glucose 136 H 164 H Calcium Total Protein Albumin 03/28/16 11:54 RBC Hgb Hct MCV MCH RDW Plt Count [place] % (Auto) Lymph # Seg Neutrophils % Lymphocytes % (Manual) Lymphocytes # (Manual) POC ABG pH POC ABG pCO2 POC ABG pO2 Sodium Chloride Carbon Dioxide BUN Creatinine Glucose POC Glucose 129 H Calcium Total Protein Albumin Chest x-ray: image reviewed
[2016-03-28] MEDS: XALATAN 0.005% OU SCH (21:05)
[2016-03-29] MEDS: NOVOLOG SUB-Q SCH ×5 (00:17→20:21)
[2016-03-29] MEDS: SUBLIMAZE 2,000 MCG in NACL 0.9% 60 ML IV SCH (04:29)
[2016-03-29 04:50] LABS: ISTAT Base Excess 4; ISTAT HCO3 27.2; ISTAT PCO2 37.2 (35-45); ISTAT PH 7.471 (7.35-7.45); ISTAT PO2 81 (80-105); ISTAT SO2 97; ISTAT TCO2 28
[2016-03-29] MEDS: CATAPRES PO SCH ×3 (05:28→22:09)
[2016-03-29] MEDS: HEPARIN SUB-Q SCH ×4 (05:29→22:10)
[2016-03-29 05:50] LABS: Hematocrit 20.2 % (30.3-42.9); Hemoglobin 6.7 gm/dl (10.1-14.3); Mean Corpuscular HGB Conc 33 % (30-34); Mean Corpuscular Hemoglobin 32 pg (28-32); Mean Corpuscular Volume 97 fl (79-97); Platelet Count 121 K/mm3 (140-440); Red Blood Count 2.07 M/mm3 (3.65-5.03); Red Cell Distribution Width 13.9 % (13.2-15.2); White Blood Count 7.4 K/mm3 (4.5-11.0)
[2016-03-29 06:17] LABS: BUN/Creatinine Ratio 13.07; Calcium 7.6 mg/dL (8.4-10.2); Chloride 111.2 mmol/L (98-107); Potassium 3.7 mmol/L (3.6-5.0)
[2016-03-29] MEDS: DUONEB 0.5 MG-3 MG/3 ML SOLN IH SCH ×3 (08:04→20:51)
[2016-03-29] MEDS: NEURONTIN PO SCH ×4 (09:24→20:31)
[2016-03-29] MEDS: PLAVIX PO SCH (09:24)
[2016-03-29] MEDS: PEPCID PO SCH ×2 (09:24→22:08)
[2016-03-29 09:54] LABS: Hemoglobin 6.5 gm/dl (10.1-14.3)
[2016-03-29] MEDS ORDERED: NACL 0.9% 500 ML 500 ML IV ONE (10:36)
--- NOTE | 2016-03-29 10:40 | Progress Note ---
Assessment and Plan - Patient Problems (1) Metabolic acidosis Current Visit: Yes Status: Acute Plan to address problem: - resolved - stop bicarbonate supplementation (2) Accidental drug overdose Current Visit: No Status: Acute Plan to address problem: - UDS positive for opiates - follow clinically (3) CKD (chronic kidney disease) Current Visit: No Status: Chronic Qualifiers: Chronic kidney disease stage: unspecified stage Qualified Code(s): N18.9 - Chronic kidney disease, unspecified Plan to address problem: - non oliguric - Serum creatinine WNL (4) Acute hypoxemic respiratory failure Current Visit: Yes Status: Acute Plan to address problem: - Continue with mechanical ventilatory support, daily SBTs as tolerated. - continue Lung protective strategies. - continue Analgesia and agitation management - HOB >30, aspiration precautions. - continue Nutritional support. - VAP bundle and critical care bundles addressed. - continue VTE and stress ulcer prophylaxis (5) Altered mental status Current Visit: Yes Status: Acute Qualifiers: Altered mental status type: unspecified Qualified Code(s): R41.82 - Altered mental status, unspecified Plan to address problem: - add prn haldol - continue seroquel - follow clinically (6) Anemia Current Visit: Yes Status: Acute Plan to address problem: - transfuse 1 unit PRBC's - anemia w/up - stool occult blood (7) Discharge planning issues Current Visit: Yes Status: Acute Plan to address problem: - will have family preservation caseworker evaluate for possible LTAC ..remains critically ill on life sustaining interventions including MVS; at high risk for further deterioration including ..32' CCT Subjective Date of service: 03/29/16 Principal diagnosis: Acute Hypoxemic Respiratory Failure Interval history: seen and examined at bedside; 24hour events reviewed; nursing and respiratory care staff consulted; no adverse overnight events reported to me; did not tolerate weaning well earlier secondary to agitation; behaving like EtOH withdrawal; no emesis or overt aspiration; no gross bleeding or melena Objective Vital Signs - 12hr 03/28/16 03/28/16 03/29/16 23:00 23:30 00:00 Temperature 100.2 F H Pulse Rate 88 81 111 H Pulse Rate [ Bilateral] Pulse Rate [ 84 From Monitor] Respiratory 15 19 22 Rate Respiratory Rate [Bilateral ] Blood Pressure 126/50 103/48 120/56 O2 Sat by Pulse 97 97 97 Oximetry 03/29/16 03/29/1603/29/17 00:25 00:30 00:37 Temperature Pulse Rate 111 H 92 H 84 Pulse Rate [ Bilateral] Pulse Rate [ From Monitor] Respiratory 19 19 Rate Respiratory Rate [Bilateral ] Blood Pressure 120/56 126/49 126/49 O2 Sat by Pulse 96 96 97 Oximetry 03/29/16 03/29/16 03/29/16 01:00 01:30 02:00 Temperature Pulse Rate 78 72 67 Pulse Rate [ Bilateral] Pulse Rate [ From Monitor] Respiratory 20 20 20 Rate Respiratory Rate [Bilateral ] Blood Pressure 99/40 96/40 106/43 O2 Sat by Pulse 97 97 Oximetry 03/29/16 03/29/16 03/29/16 02:01 02:30 03:00 Temperature Pulse Rate 69 72 80 Pulse Rate [ Bilateral] Pulse Rate [ From Monitor] Respiratory 20 20 22 Rate Respiratory Rate [Bilateral ] Blood Pressure 106/43 99/35 93/45 O2 Sat by Pulse 97 96 96 Oximetry 03/29/16 03/29/16 03/29/16 03:21 03:31 03:55 Temperature 99.8 F H Pulse Rate 79 106 H Pulse Rate [ Bilateral] Pulse Rate [ From Monitor] Respiratory 23 24 Rate Respiratory Rate [Bilateral ] Blood Pressure 93/45 89/47 O2 Sat by Pulse 99 94 Oximetry 03/29/16 03/29/16 03/29/16 03:57 04:01 04:02 Temperature Pulse Rate 90 92 H Pulse Rate [ Bilateral] Pulse Rate [ 86 From Monitor] Respiratory 19 18 24 Rate Respiratory Rate [Bilateral ] Blood Pressure 117/58 O2 Sat by Pulse 97 96 98 Oximetry 03/29/16 03/29/16 03/29/16 04:15 04:17 04:29 Temperature Pulse Rate 101 H 92 H Pulse Rate [ Bilateral] Pulse Rate [ From Monitor] Respiratory 20 19 Rate Respiratory Rate [Bilateral ] Blood Pressure 117/58 123/54 117/58 O2 Sat by Pulse 95 95 Oximetry 03/29/16 03/29/16 03/29/16 04:30 04:45 05:00 Temperature Pulse Rate 92 H 86 97 H Pulse Rate [ Bilateral] Pulse Rate [ From Monitor] Respiratory 20 19 19 Rate Respiratory Rate [Bilateral ] Blood Pressure 123/54 123/54 137/52 O2 Sat by Pulse 100 95 96 Oximetry 03/29/16 03/29/16 03/29/16 05:15 05:28 05:30 Temperature Pulse Rate 81 86 90 Pulse Rate [ Bilateral] Pulse Rate [ From Monitor] Respiratory 20 21 Rate Respiratory Rate [Bilateral ] Blood Pressure 123/54 137/52 120/50 O2 Sat by Pulse 97 97 Oximetry 03/29/16 03/29/16 03/29/16 05:45 06:00 06:15 Temperature Pulse Rate 93 H 86 81 Pulse Rate [ Bilateral] Pulse Rate [ From Monitor] Respiratory 20 17 18 Rate Respiratory Rate [Bilateral ] Blood Pressure 120/50 89/47 O2 Sat by Pulse 96 95 96 Oximetry 03/29/16 03/29/16 03/29/16 06:30 06:31 06:45 Temperature Pulse Rate 77 79 80 Pulse Rate [ Bilateral] Pulse Rate [ From Monitor] Respiratory 20 19 19 Rate Respiratory Rate [Bilateral ] Blood Pressure 104/44 104/44 104/44 O2 Sat by Pulse 95 97 96 Oximetry 03/29/16 03/29/16 03/29/16 07:00 07:15 07:30 Temperature Pulse Rate 72 78 79 Pulse Rate [ Bilateral] Pulse Rate [ From Monitor] Respiratory 20 19 20 Rate Respiratory Rate [Bilateral ] Blood Pressure 112/43 112/43 118/38 O2 Sat by Pulse 95 96 97 Oximetry 03/29/16 03/29/16 03/29/16 07:45 07:49 08:00 Temperature 98.9 F Pulse Rate 75 Pulse Rate [ Bilateral] Pulse Rate [ 85 From Monitor] Respiratory 20 Rate Respiratory Rate [Bilateral ] Blood Pressure 118/38 O2 Sat by Pulse 96 97 Oximetry 03/29/16 03/29/16 03/29/16 08:01 08:04 08:05 Temperature Pulse Rate 81 75 Pulse Rate [ 97 H Bilateral] Pulse Rate [ From Monitor] Respiratory 18 Rate Respiratory 18 Rate [Bilateral ] Blood Pressure 108/37 108/37 O2 Sat by Pulse 97 96 Oximetry 03/29/16 03/29/16 03/29/16 08:15 08:30 08:45 Temperature Pulse Rate 77 75 78 Pulse Rate [ Bilateral] Pulse Rate [ From Monitor] Respiratory 18 20 17 Rate Respiratory Rate [Bilateral ] Blood Pressure 108/37 102/43 102/43 O2 Sat by Pulse 95 95 96 Oximetry 03/29/16 03/29/16 03/29/16 09:00 09:15 09:30 Temperature Pulse Rate 82 88 79 Pulse Rate [ Bilateral] Pulse Rate [ From Monitor] Respiratory 19 16 19 Rate Respiratory Rate [Bilateral ] Blood Pressure 99/43 99/43 112/43 O2 Sat by Pulse 96 97 96 Oximetry 03/29/16 03/29/16 03/29/16 09:45 09:59 10:00 Temperature Pulse Rate 76 81 78 Pulse Rate [ Bilateral] Pulse Rate [ From Monitor] Respiratory 20 20 20 Rate Respiratory Rate [Bilateral ] Blood Pressure 112/43 112/43 107/42 O2 Sat by Pulse 96 95 94 Oximetry Constitutional: other (sedated (fentanyl at 4 mics/kg/hr)) Eyes: non-icteric ENT: oropharynx moist Neck: supple, no JVD Ascultation: Bilateral: diminished breath sounds Cardiovascular: regular rate and rhythm Gastrointestinal: normoactive bowel sounds, soft, non-tender Integumentary: normal Extremities: no cyanosis, no edema, pulses normal, no ischemia or petechiae Neurologic: unable to assess Psychiatric: other (Can not assess at this time.) CBC and BMP: 03/30/16 05:15 03/30/16 05:15 ABG, PT/INR, D-dimer: ABG POC ABG pH 7.471 (7.35-7.45) H 03/29/16 04:43 POC ABG pCO2 37.2 (35-45) 03/29/16 04:43 POC ABG pO2 81 (80-105) 03/29/16 04:43 POC ABG HCO3 27.2 03/29/16 04:43 POC ABG Total CO2 28 03/29/16 04:43 POC ABG O2 Sat 97 03/29/16 04:43 PT/INR, D-dimer PT 16.8 Sec. (12.2-14.9) H 03/23/16 18:56 INR 1.37 (0.87-1.13) H 03/23/16 18:56 Abnormal lab findings: Abnormal Labs 03/24/16 03/24/16 03/24/16 00:10 05:04 05:12 RBC 2.42 L Hgb 7.8 L Hct 23.4 L MCV 99 H MCH RDW Plt Count 139 L [place] % (Auto) 10.4 H Lymph # 0.9 L Seg Neutrophils % 71.0 H Lymphocytes % (Manual) Lymphocytes # (Manual) POC ABG pH 7.279 L POC ABG pCO2 33.6 L POC ABG pO2 112 H Sodium Chloride Carbon Dioxide BUN Creatinine Glucose POC Glucose 144 H Calcium Total Protein Albumin 03/24/16 03/24/16 03/25/16 05:12 05:50 04:30 RBC 2.55 L Hgb 8.0 L Hct 25.0 L MCV 98 H MCH RDW 15.6 H Plt Count [place] % (Auto) Lymph # Seg Neutrophils % Lymphocytes % (Manual) 10.0 L Lymphocytes # (Manual) 0.7 L POC ABG pH POC ABG pCO2 POC ABG pO2 Sodium Chloride 112.3 H Carbon Dioxide 17 L BUN 51 H Creatinine 2.3 H Glucose POC Glucose 107 H Calcium 7.0 L Total Protein Albumin 03/25/16 03/25/16 03/25/16 04:30 04:58 10:17 RBC Hgb Hct MCV MCH RDW Plt Count [place] % (Auto) Lymph # Seg Neutrophils % Lymphocytes % (Manual) Lymphocytes # (Manual) POC ABG pH 7.285 L 7.261 L POC ABG pCO2 27.2 L 28.6 L POC ABG pO2 112 H Sodium 148 H Chloride 116.9 H Carbon Dioxide 14 L BUN 38 H Creatinine 1.7 H Glucose POC Glucose Calcium 7.1 L Total Protein 5.0 L D Albumin 2.4 L 03/26/16 03/26/16 03/26/16 05:30 05:30 05:32 RBC 2.37 L Hgb 7.7 L Hct 23.0 L MCV MCH 33 H RDW Plt Count 134 L [place] % (Auto) 15.2 H Lymph # 0.9 L Seg Neutrophils % Lymphocytes % (Manual) Lymphocytes # (Manual) POC ABG pH POC ABG pCO2 31.8 L POC ABG pO2 Sodium 147 H Chloride 112.3 H Carbon Dioxide 21 L D BUN 20 H Creatinine 1.3 H Glucose 121 H POC Glucose Calcium 7.6 L Total Protein Albumin 03/26/16 03/26/16 03/26/16 06:05 11:46 17:24 RBC Hgb Hct MCV MCH RDW Plt Count [place] % (Auto) Lymph # Seg Neutrophils % Lymphocytes % (Manual) Lymphocytes # (Manual) POC ABG pH POC ABG pCO2 POC ABG pO2 Sodium Chloride Carbon Dioxide BUN Creatinine Glucose POC Glucose 115 H 146 H 134 H Calcium Total Protein Albumin 01/03/27/16 03/27/16 23:41 06:00 06:00 RBC 2.46 L Hgb 7.8 L Hct 23.7 L MCV MCH RDW Plt Count 138 L [place] % (Auto) 12.5 H Lymph # Seg Neutrophils % Lymphocytes % (Manual) Lymphocytes # (Manual) POC ABG pH POC ABG pCO2 POC ABG pO2 Sodium Chloride Carbon Dioxide BUN Creatinine Glucose POC Glucose 155 H Calcium 7.6 L Total Protein Albumin 03/27/16 03/27/16 03/27/16 11:25 17:37 18:01 RBC Hgb Hct MCV MCH RDW Plt Count [place] % (Auto) Lymph # Seg Neutrophils % Lymphocytes % (Manual) Lymphocytes # (Manual) POC ABG pH POC ABG pCO2 POC ABG pO2 Sodium Chloride Carbon Dioxide BUN Creatinine Glucose POC Glucose 163 H 173 H 171 H Calcium Total Protein Albumin 03/27/16 03/28/16 03/28/16 23:51 04:53 05:47 RBC Hgb Hct MCV MCH RDW Plt Count [place] % (Auto) Lymph # Seg Neutrophils % Lymphocytes % (Manual) Lymphocytes # (Manual) POC ABG pH POC ABG pCO2 34.9 L POC ABG pO2 Sodium Chloride Carbon Dioxide BUN Creatinine Glucose POC Glucose 136 H 164 H Calcium Total Protein Albumin 03/28/16 03/28/16 03/29/16 11:54 17:33 00:11 RBC Hgb Hct MCV MCH RDW Plt Count [place] % (Auto) Lymph # Seg Neutrophils % Lymphocytes % (Manual) Lymphocytes # (Manual) POC ABG pH POC ABG pCO2 POC ABG pO2 Sodium Chloride Carbon Dioxide BUN Creatinine Glucose POC Glucose 129 H 148 H 154 H Calcium Total Protein Albumin 03/29/16 03/29/16 03/29/16 04:43 05:00 05:00 RBC 2.07 L Hgb 6.7 L Hct 20.2 L MCV MCH RDW Plt Count 121 L [place] % (Auto) Lymph # Seg Neutrophils % Lymphocytes % (Manual) Lymphocytes # (Manual) POC ABG pH 7.471 H POC ABG pCO2 POC ABG pO2 Sodium 149 H Chloride 111.2 H Carbon Dioxide BUN Creatinine 1.3 H Glucose 110 H POC Glucose Calcium 7.6 L Total Protein Albumin 03/29/16 03/29/16 05:35 09:30 RBC Hgb 6.5 L Hct 20.0 L MCV MCH RDW Plt Count [place] % (Auto) Lymph # Seg Neutrophils % Lymphocytes % (Manual) Lymphocytes # (Manual) POC ABG pH POC ABG pCO2 POC ABG pO2 Sodium Chloride Carbon Dioxide BUN Creatinine Glucose POC Glucose 108 H Calcium Total Protein Albumin Chest x-ray: pending
[2016-03-29] MEDS: SENOKOT S PO SCH ×2 (11:27→22:08)
[2016-03-29] MEDS: HALDOL IV PRN (13:49)
[2016-03-29] MEDS: DIFLUCAN/NS 100 MG/50 ML 50 ML IV SCH (15:03)
[2016-03-29] MEDS ORDERED: NACL 0.9% 250ML 250 ML ONE (15:07)
[2016-03-29] MEDS: LEVAQUIN 750MG/150ML 150 ML IV SCH (16:30)
[2016-03-29] MEDS: TYLENOL FEEDTUBE PRN (16:47)
--- NOTE | 2016-03-29 17:10 | Progress Note ---
Assessment and Plan Assessment and plan: Acute respiratory failure due to COPD exacerbation. She is still orally intubated on ventilatory support nebulizers, IV steroids, Empiric antibiotics, wean as tolerated and extubate. Pulm following. --Acute exacerbation of COPD Continue oxygen support, nebulizers, IV steroids IV antibiotics inhalation steroids and supportive care Anemia. Hgb 6.7. Transfuse 2 units PRBC. Recheck hemoglobin in the morning. Recheck stool occult blood Acute on chronic kidney disease, improving Probably secondary to ATN. IV hydration. Creatinine 1.3 today . Encephalopathy /Opiate overdose; accidental. Hypotension/shock,Improved, off pressors Hypernatremia. SIRS; blood cultures urine cultures Lactic acid level within normal limits, empiric antibiotics ID evaluation if needed Metabolic acidosis secondary to acute renal failure Lactate levels within normal limits, IV fluids and replacement therapy as needed DVT prophylaxis; with Lovenox, FULL CODE STATUS -- History Interval history: Patient with acute respiratory failure, still intubated, Fever on and off Hospitalist Physical - Physical exam Narrative exam: Gen: Not in acute distress, intubated orally Neck: No JVD Lungs: Bilateral rhonchi, no crackles. Heart:S1 and S2 reg, no murmurs,rubs or gallop Abd: soft, NT, ND, Normal bowel sounds Ext: No edema, no clubbing , no cyanosis Neuro: sedated, intubated, responsive - Constitutional Vitals: Temp Pulse Resp BP Pulse Ox 98.4 F 110 H 26 H 138/112 100 03/29/16 15:49 03/29/16 16:31 03/29/16 16:31 03/29/16 16:31 03/29/16 16:31 General appearance: Present: no acute distress, well-nourished, obese, other ( intubated on ventilatory support) Results - Labs CBC & Chem 7: 03/29/16 09:30 03/29/16 05:00 Labs: Laboratory Last Values WBC 7.4 K/mm3 (4.5-11.0) 03/29/16 05:00 RBC 2.07 M/mm3 (3.65-5.03) L 03/29/16 05:00 Hgb 6.5 gm/dl (10.1-14.3) L 03/29/16 09:30 Hct 20.0 % (30.3-42.9) L 03/29/16 09:30 MCV 97 fl (79-97) 03/29/16 05:00 MCH 32 pg (28-32) 03/29/16 05:00 MCHC 33 % (30-34) 03/29/16 05:00 RDW 13.9 % (13.2-15.2) 03/29/16 05:00 Plt Count 121 K/mm3 (140-440) L 03/29/16 05:00 Lymph % (Auto) 22.9 % (13.4-35.0) 03/27/16 06:00 [place] % (Auto) 12.5 % (0.0-7.3) H 03/27/16 06:00 Eos % (Auto) 1.1 % (0.0-4.3) 03/27/16 06:00 Baso % (Auto) 0.4 % (0.0-1.8) 03/27/16 06:00 Lymph # 1.4 K/mm3 (1.2-5.4) 03/27/16 06:00 [place] # 0.8 K/mm3 (0.0-0.8) 03/27/16 06:00 Eos # 0.1 K/mm3 (0.0-0.4) 03/27/16 06:00 Baso # 0.0 K/mm3 (0.0-0.1) 03/27/16 06:00 Add Manual Diff Complete 03/25/16 04:30 Total Counted 100 03/25/16 04:30 Seg Neutrophils % 63.1 % (40.0-70.0) 03/27/16 06:00 Seg Neuts % (Manual) 64.0 % (40.0-70.0) 03/25/16 04:30 Band Neutrophils % 18.0 % 03/25/16 04:30 Lymphocytes % (Manual) 10.0 % (13.4-35.0) L 03/25/16 04:30 Reactive Lymphs % (Man) 0 % 03/25/16 04:30 Monocytes % (Manual) 7.0 % (0.0-7.3) 03/25/16 04:30 Eosinophils % (Manual) 1.0 % (0.0-4.3) 03/25/16 04:30 Basophils % (Manual) 0 % (0.0-1.8) 03/25/16 04:30 Metamyelocytes % 0 % 03/25/16 04:30 Myelocytes % 0 % 03/25/16 04:30 Promyelocytes % 0 % 03/25/16 04:30 Blast Cells % 0 % 03/25/16 04:30 Nucleated RBC % Not Reportable 03/25/16 04:30 Seg Neutrophils # 3.9 K/mm3 (1.8-7.7) 03/27/16 06:00 Seg Neutrophils # Man 4.7 K/mm3 (1.8-7.7) 03/25/16 04:30 Band Neutrophils # 1.3 K/mm3 03/25/16 04:30 Lymphocytes # (Manual) 0.7 K/mm3 (1.2-5.4) L 03/25/16 04:30 Abs React Lymphs (Man) 0.0 K/mm3 03/25/16 04:30 Monocytes # (Manual) 0.5 K/mm3 (0.0-0.8) 03/25/16 04:30 Eosinophils # (Manual) 0.1 K/mm3 (0.0-0.4) 03/25/16 04:30 Basophils # (Manual) 0.0 K/mm3 (0.0-0.1) 03/25/16 04:30 Metamyelocytes # 0.0 K/mm3 03/25/16 04:30 Myelocytes # 0.0 K/mm3 03/25/16 04:30 Promyelocytes # 0.0 K/mm3 03/25/16 04:30 Blast Cells # 0.0 K/mm3 03/25/16 04:30 WBC Morphology Not Reportable 03/25/16 04:30 Hypersegmented Neuts Not Reportable 03/25/16 04:30 Hyposegmented Neuts Not Reportable 03/25/16 04:30 Hypogranular Neuts Not Reportable 03/25/16 04:30 Smudge Cells Not Reportable 03/25/16 04:30 Toxic Granulation Not Reportable 03/25/16 04:30 Toxic Vacuolation Not Reportable 03/25/16 04:30 Dohle Bodies Not Reportable 03/25/16 04:30 Pelger-Huet Anomaly Not Reportable 03/25/16 04:30 Sameer Rods Not Reportable 03/25/16 04:30 Platelet Estimate Appears decreased 03/25/16 04:30 Clumped Platelets Not Reportable 03/25/16 04:30 Plt Clumps, EDTA Not Reportable 03/25/16 04:30 Large Platelets Not Reportable 03/25/16 04:30 Giant Platelets Not Reportable 03/25/16 04:30 Platelet Satelliting Not Reportable 03/25/16 04:30 Plt Morphology Comment Not Reportable 03/25/16 04:30 RBC Morphology Not Reportable 03/25/16 04:30 Dimorphic RBCs Not Reportable 03/25/16 04:30 Polychromasia Not Reportable 03/25/16 04:30 Hypochromasia Not Reportable 03/25/16 04:30 Poikilocytosis Few 03/25/16 04:30 Anisocytosis Not Reportable 03/25/16 04:30 Microcytosis Not Reportable 03/25/16 04:30 Macrocytosis Not Reportable 03/25/16 04:30 Spherocytes Not Reportable 03/25/16 04:30 Pappenheimer Bodies Not Reportable 03/25/16 04:30 Sickle Cells Not Reportable 03/25/16 04:30 Target Cells Not Reportable 03/25/16 04:30 Tear Drop Cells Not Reportable 03/25/16 04:30 Ovalocytes Few 03/25/16 04:30 Helmet Cells Not Reportable 03/25/16 04:30 Steve-Imogene Bodies Not Reportable 03/25/16 04:30 [place] Rings Not Reportable 03/25/16 04:30 [place] Cells Not Reportable 03/25/16 04:30 Bite Cells Not Reportable 03/25/16 04:30 Crenated Cell Not Reportable 03/25/16 04:30 Elliptocytes Not Reportable 03/25/16 04:30 Acanthocytes (Spur) Not Reportable 03/25/16 04:30 Rouleaux Not Reportable 03/25/16 04:30 Hemoglobin C Crystals Not Reportable 03/25/16 04:30 Schistocytes Not Reportable 03/25/16 04:30 Malaria parasites Not Reportable 03/25/16 04:30 Konstantin Bodies Not Reportable 03/25/16 04:30 Hem Pathologist Commnt No 03/25/16 04:30 PT 16.8 Sec. (12.2-14.9) H 03/23/16 18:56 INR 1.37 (0.87-1.13) H 03/23/16 18:56 APTT 28.7 Sec. (24.2-36.6) 03/23/16 18:56 POC ABG pH 7.471 (7.35-7.45) H 03/29/16 04:43 POC ABG pCO2 37.2 (35-45) 03/29/16 04:43 POC ABG pO2 81 (80-105) 03/29/16 04:43 POC ABG HCO3 27.2 03/29/16 04:43 POC ABG Total CO2 28 03/29/16 04:43 POC ABG O2 Sat 97 03/29/16 04:43 POC ABG Base Excess 4 03/29/16 04:43 FiO2 35 % 03/29/16 04:43 Sodium 149 mmol/L (137-145) H 03/29/16 05:00 Potassium 3.7 mmol/L (3.6-5.0) 03/29/16 05:00 Chloride 111.2 mmol/L (98-107) H 03/29/16 05:00 Carbon Dioxide 24 mmol/L (22-30) 03/29/16 05:00 Anion Gap 15 mmol/L 03/27/16 06:00 BUN 17 mg/dL (7-17) 03/29/16 05:00 Creatinine 1.3 mg/dL (0.7-1.2) H 03/29/16 05:00 Estimated GFR 41 ml/min 03/29/16 05:00 BUN/Creatinine Ratio 13.07 % 03/29/16 05:00 Glucose 110 mg/dL (65-100) H 03/29/16 05:00 POC Glucose 141 (70-105) H 03/29/16 11:40 Lactic Acid 1.4 mmol/L (0.7-2.0) 03/23/16 20:10 Calcium 7.6 mg/dL (8.4-10.2) L 03/29/16 05:00 Phosphorus 3.8 mg/dL (2.5-4.5) 03/25/16 04:30 Magnesium 2.2 mg/dL (1.7-2.3) 03/28/16 05:30 Total Bilirubin 0.2 mg/dL (0.1-1.2) 03/25/16 04:30 Direct Bilirubin < 0.2 mg/dL (0-0.2) 03/25/16 04:30 Indirect Bilirubin 0.0 mg/dL 03/25/16 04:30 AST 20 units/L (5-40) 03/25/16 04:30 ALT 12 units/L (7-56) 03/25/16 04:30 Alkaline Phosphatase 86 units/L (35-129) 03/25/16 04:30 Total Protein 5.0 g/dL (6.3-8.2) L D 03/25/16 04:30 Albumin 2.4 g/dL (3.9-5) L 03/25/16 04:30 Albumin/Globulin Ratio 0.9 % 03/25/16 04:30 TSH 0.264 mlU/mL (0.270-4.200) L 03/23/16 17:33 Urine Color Yellow (Yellow) 03/23/16 20:13 Urine Turbidity Slightly-cloudy (Clear) 03/23/16 20:13 Urine pH 5.0 (5.0-7.0) 03/23/16 20:13 Ur Specific [place] 1.016 (1.003-1.030) 03/23/16 20:13 Urine Protein 100 mg/dl mg/dL (Negative) 03/23/16 20:13 Urine Glucose (UA) Neg mg/dL (Negative) 03/23/16 20:13 Urine Ketones Neg mg/dL (Negative) 03/23/16 20:13 Urine Blood Mod (Negative) 03/23/16 20:13 Urine Nitrite Neg (Negative) 03/23/16 20:13 Urine Bilirubin Neg (Negative) 03/23/16 20:13 Urine Urobilinogen < 2.0 mg/dL (<2.0) 03/23/16 20:13 Ur Leukocyte Esterase Neg (Negative) 03/23/16 20:13 Urine WBC (Auto) < 1.0 /HPF (0.0-6.0) 03/23/16 20:13 Urine RBC (Auto) < 1.0 /HPF (0.0-6.0) 03/23/16 20:13 U Epithel Cells (Auto) < 1.0 /HPF (0-13.0) 03/23/16 20:13 Urine Mucus Few /HPF 03/23/16 20:13 Salicylates 0.6 mg/dL (2.8-20.0) L 03/23/16 17:33 Urine Opiates Screen Presumptive positive 03/23/16 20:13 Urine Methadone Screen Presumptive negative 03/23/16 20:13 Acetaminophen < 15.0 ug/mL (10.0-30.0) 03/23/16 17:33 Ur Barbiturates Screen Presumptive negative 03/23/16 20:13 Ur Phencyclidine Scrn Presumptive negative 03/23/16 20:13 Ur Amphetamines Screen Presumptive negative 03/23/16 20:13 U Benzodiazepines Scrn Presumptive negative 03/23/16 20:13 Urine Cocaine Screen Presumptive negative 03/23/16 20:13 U Marijuana (THC) Screen Presumptive negative 03/23/16 20:13 Drugs of Abuse Note Disclamer 03/23/16 20:13 Plasma/Serum Alcohol < 0.01 gm% (0-0.07) 03/23/16 17:45 Blood Type B NEGATIVE 03/29/16 12:30 Antibody Screen Negative 03/29/16 12:30 Crossmatch See Detail 03/29/16 12:30
[2016-03-29] MEDS: fentaNYL DRIP Premix 100 ML IV SCH (20:28)
[2016-03-29] MEDS: XALATAN 0.005% OU SCH (23:00)
[2016-03-30] MEDS: NOVOLOG SUB-Q SCH ×6 (00:54→20:08)
[2016-03-30] MEDS: HALDOL IV PRN ×2 (04:16→21:38)
[2016-03-30] MEDS: fentaNYL DRIP Premix 100 ML IV SCH (04:17)
[2016-03-30 05:38] LABS: Hematocrit 23.1 % (30.3-42.9); Hemoglobin 7.7 gm/dl (10.1-14.3); Mean Corpuscular HGB Conc 33 % (30-34); Mean Corpuscular Hemoglobin 32 pg (28-32); Mean Corpuscular Volume 96 fl (79-97); Platelet Count 131 K/mm3 (140-440); Red Blood Count 2.41 M/mm3 (3.65-5.03); Red Cell Distribution Width 15.3 % (13.2-15.2); White Blood Count 8.9 K/mm3 (4.5-11.0)
[2016-03-30 05:59] LABS: BUN/Creatinine Ratio 15.45; Calcium 7.6 mg/dL (8.4-10.2); Potassium 3.6 mmol/L (3.6-5.0)
[2016-03-30 06:31] LABS: ISTAT Base Excess 0; ISTAT HCO3 24.3; ISTAT PCO2 37.8 (35-45); ISTAT PH 7.416 (7.35-7.45); ISTAT PO2 91 (80-105); ISTAT SO2 97; ISTAT TCO2 25
[2016-03-30] MEDS: DUONEB 0.5 MG-3 MG/3 ML SOLN IH SCH ×3 (08:28→21:02)
--- NOTE | 2016-03-30 10:29 | Progress Note ---
Assessment and Plan - Patient Problems (1) Respiratory failure Current Visit: Yes Status: Acute Qualifiers: Chronicity: acute Respiratory failure complication: hypoxia Qualified Code(s): J96.01 - Acute respiratory failure with hypoxia Plan to address problem: Continue with mechanical ventilatory support, daily SBTs as tolerated. Lung protective strategies. Analgesia and agitation management HOB >30, aspiration precautions. Nutritional support. VAP bundle and critical care bundles addressed. VTE and stress ulcer prophylaxis (2) Metabolic acidosis Current Visit: Yes Status: Acute Plan to address problem: Much improved. Continue to monitor and adjust minute ventilation for adequate acid-base balance (3) Accidental drug overdose Current Visit: No Status: Acute (4) Acute renal failure Current Visit: Yes Status: Acute Qualifiers: Acute renal failure type: unspecified Qualified Code(s): N17.9 - Acute kidney failure, unspecified Plan to address problem: Avoid nephrotoxic medications. Adjust medication dosages for [facility] Nephrology following (5) Altered mental status Current Visit: Yes Status: Acute Qualifiers: Altered mental status type: unspecified Qualified Code(s): R41.82 - Altered mental status, unspecified Plan to address problem: Continue to monitor closely. Probably toxic and metabolic from metabolic derangements and accidental overdose. Continue with aspiration precautions Subjective Date of service: 03/30/16 Principal diagnosis: Acute Hypoxemic Respiratory Failure Interval history: This is 65 year old white female admitted with drug overdose, altered mental status and hypotension.Patient intubated and placed on mechanical ventilation.Patient has history of hypertension, chronic kidney disease , DM and COPD.Patient has history of smoking and chronic narcotic drug use for chronic pain. Current smoking status not known. No history of alcohol. Allergic to sulfa.Drug screen positive for Opiates. 03/26/16 Patient less agitated. Still on mechanical ventilation. RT attempted PSV today 02/12- very low lung volumes though she was more awake and alert. High grade fevers overnight- cultures were sent . Currently on renally dosed Zosyn, metabolic acidosis improving on bicarbonate infusion. On heparin and famotidine for VTE/stress ulcer prophylaxis Today 03/28/2016 Much better. Awake and alert, obeying one step commands. Initiate SBTs as tolerated. Today 03/30/2015- less agitated, tolerating SBT. Sodium much improved, tolerating tube feedings. Objective - Exam Narrative Exam: Gen: Not in acute distress, intubated orally Neck: No JVD Atraumatic, normocephalic Lungs: Bilateral rhonchi, no crackles. Heart:S1 and S2 reg, no murmurs,rubs or gallop Abd: soft, NT, ND, Normal bowel sounds Ext: No edema, no clubbing , no cyanosis Neuro: sedated, intubated, responsive Skin- excoritations around skin folds Vital Signs - 12hr 03/29/16 03/29/16 03/29/16 22:30 23:00 23:30 Temperature Pulse Rate 67 63 61 Pulse Rate [ Bilateral] Pulse Rate [ From Monitor] Respiratory 20 20 20 Rate Respiratory Rate [Bilateral ] Blood Pressure 126/57 124/53 123/53 O2 Sat by Pulse 97 96 97 Oximetry 03/30/16 03/30/16 03/30/16 00:00 00:30 00:45 Temperature 98.0 F Pulse Rate 59 L 74 78 Pulse Rate [ Bilateral] Pulse Rate [ From Monitor] Respiratory 20 21 20 Rate Respiratory Rate [Bilateral ] Blood Pressure 126/54 133/56 133/56 O2 Sat by Pulse 96 99 98 Oximetry 03/30/16 03/30/16 03/30/16 00:58 01:01 01:31 Temperature Pulse Rate 83 77 Pulse Rate [ Bilateral] Pulse Rate [ 91 H From Monitor] Respiratory 19 20 21 Rate Respiratory Rate [Bilateral ] Blood Pressure 133/56 132/32 O2 Sat by Pulse 100 99 98 Oximetry 03/30/16 03/30/16 03/30/16 02:01 02:31 02:39 Temperature Pulse Rate 93 H 100 H 96 H Pulse Rate [ Bilateral] Pulse Rate [ From Monitor] Respiratory 16 14 Rate Respiratory Rate [Bilateral ] Blood Pressure 105/69 128/40 128/40 O2 Sat by Pulse 98 97 100 Oximetry 03/30/16 03/30/16 03/30/16 02:57 03:00 03:30 Temperature Pulse Rate 92 H 78 78 Pulse Rate [ Bilateral] Pulse Rate [ From Monitor] Respiratory 19 20 20 Rate Respiratory Rate [Bilateral ] Blood Pressure 128/40 119/43 129/47 O2 Sat by Pulse 99 96 96 Oximetry 03/30/16 03/30/16 03/30/16 04:00 04:03 04:09 Temperature 98.9 F Pulse Rate 87 86 Pulse Rate [ Bilateral] Pulse Rate [ From Monitor] Respiratory 20 19 Rate Respiratory Rate [Bilateral ] Blood Pressure 132/58 132/58 O2 Sat by Pulse 97 98 Oximetry 03/30/16 03/30/16 03/30/16 04:31 04:59 05:00 Temperature Pulse Rate 112 H 102 H Pulse Rate [ Bilateral] Pulse Rate [ 88 From Monitor] Respiratory 14 20 20 Rate Respiratory Rate [Bilateral ] Blood Pressure 132/58 140/71 O2 Sat by Pulse 95 98 99 Oximetry 03/30/16 03/30/16 03/30/16 05:08 05:11 05:31 Temperature Pulse Rate 78 88 87 Pulse Rate [ Bilateral] Pulse Rate [ From Monitor] Respiratory 15 19 Rate Respiratory Rate [Bilateral ] Blood Pressure 140/71 140/71 126/54 O2 Sat by Pulse 98 99 94 Oximetry 03/30/16 03/30/16 03/30/16 06:01 06:30 07:00 Temperature Pulse Rate 94 H 85 71 Pulse Rate [ Bilateral] Pulse Rate [ From Monitor] Respiratory 19 22 15 Rate Respiratory Rate [Bilateral ] Blood Pressure 123/74 128/43 134/48 O2 Sat by Pulse 98 96 97 Oximetry 03/30/16 03/30/16 03/30/16 07:30 07:35 08:00 Temperature 99.7 F H Pulse Rate 71 71 Pulse Rate [ Bilateral] Pulse Rate [ 79 From Monitor] Respiratory 21 19 Rate Respiratory Rate [Bilateral ] Blood Pressure 132/47 130/55 O2 Sat by Pulse 98 98 Oximetry 03/30/16 03/30/16 03/30/16 08:07 08:10 08:20 Temperature Pulse Rate 71 85 Pulse Rate [ 88 Bilateral] Pulse Rate [ From Monitor] Respiratory 20 Rate Respiratory 26 H Rate [Bilateral ] Blood Pressure 130/55 132/52 O2 Sat by Pulse 98 94 Oximetry 03/30/16 03/30/16 03/30/16 08:30 08:32 09:00 Temperature Pulse Rate 85 91 H Pulse Rate [ 87 Bilateral] Pulse Rate [ From Monitor] Respiratory 21 26 H Rate Respiratory 30 H Rate [Bilateral ] Blood Pressure 132/52 119/47 O2 Sat by Pulse 91 95 Oximetry 03/30/16 03/30/16 03/30/16 09:02 09:08 09:13 Temperature Pulse Rate 96 H 91 H 92 H Pulse Rate [ Bilateral] Pulse Rate [ From Monitor] Respiratory 27 H 27 H 26 H Rate Respiratory Rate [Bilateral ] Blood Pressure 119/47 119/47 119/47 O2 Sat by Pulse 96 95 95 Oximetry 03/30/16 03/30/16 09:30 09:46 Temperature Pulse Rate 88 88 Pulse Rate [ Bilateral] Pulse Rate [ From Monitor] Respiratory 26 H Rate Respiratory Rate [Bilateral ] Blood Pressure 113/44 O2 Sat by Pulse 96 Oximetry Constitutional: other (sedated (fentanyl at 4 mics/kg/hr)) Eyes: non-icteric ENT: oropharynx moist Neck: supple, no JVD Ascultation: Bilateral: diminished breath sounds Cardiovascular: regular rate and rhythm Gastrointestinal: normoactive bowel sounds, soft, non-tender Integumentary: normal Extremities: no cyanosis, no edema, pulses normal, no ischemia or petechiae Neurologic: unable to assess Psychiatric: other (Can not assess at this time.) CBC and BMP: 03/30/16 05:15 03/30/16 05:15 ABG, PT/INR, D-dimer: ABG POC ABG pH 7.416 (7.35-7.45) 03/30/16 05:22 POC ABG pCO2 37.8 (35-45) 03/30/16 05:22 POC ABG pO2 91 (80-105) 03/30/16 05:22 POC ABG HCO3 24.3 03/30/16 05:22 POC ABG Total CO2 25 03/30/16 05:22 POC ABG O2 Sat 97 03/30/16 05:22 PT/INR, D-dimer PT 16.8 Sec. (12.2-14.9) H 03/23/16 18:56 INR 1.37 (0.87-1.13) H 03/23/16 18:56 Abnormal lab findings: Abnormal Labs 03/24/16 03/24/16 03/24/16 00:10 05:04 05:12 RBC 2.42 L Hgb 7.8 L Hct 23.4 L MCV 99 H MCH RDW Plt Count 139 L [place] % (Auto) 10.4 H Lymph # 0.9 L Seg Neutrophils % 71.0 H Lymphocytes % (Manual) Lymphocytes # (Manual) POC ABG pH 7.279 L POC ABG pCO2 33.6 L POC ABG pO2 112 H Sodium Chloride Carbon Dioxide BUN Creatinine Glucose POC Glucose 144 H Calcium Total Protein Albumin Crossmatch 03/24/16 03/24/16 03/25/16 05:12 05:50 04:30 RBC 2.55 L Hgb 8.0 L Hct 25.0 L MCV 98 H MCH RDW 15.6 H Plt Count [place] % (Auto) Lymph # Seg Neutrophils % Lymphocytes % (Manual) 10.0 L Lymphocytes # (Manual) 0.7 L POC ABG pH POC ABG pCO2 POC ABG pO2 Sodium Chloride 112.3 H Carbon Dioxide 17 L BUN 51 H Creatinine 2.3 H Glucose POC Glucose 107 H Calcium 7.0 L Total Protein Albumin Crossmatch 03/25/16 03/25/16 03/25/16 04:30 04:58 10:17 RBC Hgb Hct MCV MCH RDW Plt Count [place] % (Auto) Lymph # Seg Neutrophils % Lymphocytes % (Manual) Lymphocytes # (Manual) POC ABG pH 7.285 L 7.261 L POC ABG pCO2 27.2 L 28.6 L POC ABG pO2 112 H Sodium 148 H Chloride 116.9 H Carbon Dioxide 14 L BUN 38 H Creatinine 1.7 H Glucose POC Glucose Calcium 7.1 L Total Protein 5.0 L D Albumin 2.4 L Crossmatch 03/26/16 03/26/16 03/26/16 05:30 05:30 05:32 RBC 2.37 L Hgb 7.7 L Hct 23.0 L MCV MCH 33 H RDW Plt Count 134 L [place] % (Auto) 15.2 H Lymph # 0.9 L Seg Neutrophils % Lymphocytes % (Manual) Lymphocytes # (Manual) POC ABG pH POC ABG pCO2 31.8 L POC ABG pO2 Sodium 147 H Chloride 112.3 H Carbon Dioxide 21 L D BUN 20 H Creatinine 1.3 H Glucose 121 H POC Glucose Calcium 7.6 L Total Protein Albumin Crossmatch 03/26/16 03/26/16 03/26/16 06:05 11:46 17:24 RBC Hgb Hct MCV MCH RDW Plt Count [place] % (Auto) Lymph # Seg Neutrophils % Lymphocytes % (Manual) Lymphocytes # (Manual) POC ABG pH POC ABG pCO2 POC ABG pO2 Sodium Chloride Carbon Dioxide BUN Creatinine Glucose POC Glucose 115 H 146 H 134 H Calcium Total Protein Albumin Crossmatch 03/26/16 03/27/16 03/27/16 23:41 06:00 06:00 RBC 2.46 L Hgb 7.8 L Hct 23.7 L MCV MCH RDW Plt Count 138 L [place] % (Auto) 12.5 H Lymph # Seg Neutrophils % Lymphocytes % (Manual) Lymphocytes # (Manual) POC ABG pH POC ABG pCO2 POC ABG pO2 Sodium Chloride Carbon Dioxide BUN Creatinine Glucose POC Glucose 155 H Calcium 7.6 L Total Protein Albumin Crossmatch 03/27/16 03/27/16 03/27/16 11:25 17:37 18:01 RBC Hgb Hct MCV MCH RDW Plt Count [place] % (Auto) Lymph # Seg Neutrophils % Lymphocytes % (Manual) Lymphocytes # (Manual) POC ABG pH POC ABG pCO2 POC ABG pO2 Sodium Chloride Carbon Dioxide BUN Creatinine Glucose POC Glucose 163 H 173 H 171 H Calcium Total Protein Albumin Crossmatch 03/27/16 03/28/16 03/28/16 23:51 04:53 05:47 RBC Hgb Hct MCV MCH RDW Plt Count [place] % (Auto) Lymph # Seg Neutrophils % Lymphocytes % (Manual) Lymphocytes # (Manual) POC ABG pH POC ABG pCO2 34.9 L POC ABG pO2 Sodium Chloride Carbon Dioxide BUN Creatinine Glucose POC Glucose 136 H 164 H Calcium Total Protein Albumin Crossmatch 03/28/16 03/28/16 03/29/16 11:54 17:33 00:11 RBC Hgb Hct MCV MCH RDW Plt Count [place] % (Auto) Lymph # Seg Neutrophils % Lymphocytes % (Manual) Lymphocytes # (Manual) POC ABG pH POC ABG pCO2 POC ABG pO2 Sodium Chloride Carbon Dioxide BUN Creatinine Glucose POC Glucose 129 H 148 H 154 H Calcium Total Protein Albumin Crossmatch 03/29/16 03/29/16 03/29/16 04:43 05:00 05:00 RBC 2.07 L Hgb 6.7 L Hct 20.2 L MCV MCH RDW Plt Count 121 L [place] % (Auto) Lymph # Seg Neutrophils % Lymphocytes % (Manual) Lymphocytes # (Manual) POC ABG pH 7.471 H POC ABG pCO2 POC ABG pO2 Sodium 149 H Chloride 111.2 H Carbon Dioxide BUN Creatinine 1.3 H Glucose 110 H POC Glucose Calcium 7.6 L Total Protein Albumin Crossmatch 03/29/16 03/29/16 03/29/16 05:35 09:30 11:40 RBC Hgb 6.5 L Hct 20.0 L MCV MCH RDW Plt Count [place] % (Auto) Lymph # Seg Neutrophils % Lymphocytes % (Manual) Lymphocytes # (Manual) POC ABG pH POC ABG pCO2 POC ABG pO2 Sodium Chloride Carbon Dioxide BUN Creatinine Glucose POC Glucose 108 H 141 H Calcium Total Protein Albumin Crossmatch 03/29/16 03/29/16 03/30/16 12:30 17:45 05:15 RBC 2.41 L Hgb 7.7 L Hct 23.1 L MCV MCH RDW 15.3 H Plt Count 131 L [place] % (Auto) Lymph # Seg Neutrophils % Lymphocytes % (Manual) Lymphocytes # (Manual) POC ABG pH POC ABG pCO2 POC ABG pO2 Sodium Chloride Carbon Dioxide BUN Creatinine Glucose POC Glucose 200 H Calcium Total Protein Albumin Crossmatch See Detail 03/30/16 03/30/16 05:15 05:56 RBC Hgb Hct MCV MCH RDW Plt Count [place] % (Auto) Lymph # Seg Neutrophils % Lymphocytes % (Manual) Lymphocytes # (Manual) POC ABG pH POC ABG pCO2 POC ABG pO2 Sodium Chloride Carbon Dioxide BUN Creatinine Glucose 144 H POC Glucose 141 H Calcium 7.6 L Total Protein Albumin Crossmatch
[2016-03-30 11:45] LABS: ISTAT Base Excess -2; ISTAT HCO3 23.2; ISTAT PCO2 39.5 (35-45); ISTAT PH 7.377 (7.35-7.45); ISTAT PO2 80 (80-105); ISTAT SO2 95; ISTAT TCO2 24
[2016-03-30] MEDS: CATAPRES PO SCH ×3 (13:21→21:32)
[2016-03-30] MEDS: PEPCID PO SCH ×2 (13:37→21:32)
[2016-03-30] MEDS: SENOKOT S PO SCH ×2 (13:37→21:34)
[2016-03-30] MEDS: NEURONTIN PO SCH ×3 (13:38→21:32)
[2016-03-30] MEDS: HEPARIN SUB-Q SCH ×3 (13:39→21:33)
[2016-03-30] MEDS: PLAVIX PO SCH (13:40)
[2016-03-30] MEDS: DIFLUCAN/NS 100 MG/50 ML 50 ML IV SCH (13:44)
[2016-03-30] MEDS ORDERED: D5/0.45NS 1,000 ML IV ONE (13:46)
[2016-03-30] MEDS: LEVAQUIN 750MG/150ML 150 ML IV SCH (14:07)
--- NOTE | 2016-03-30 14:31 | Progress Note ---
Assessment and Plan Assessment and plan: Acute respiratory failure due to COPD exacerbation. She is still orally intubated on ventilatory support nebulizers, IV steroids, Empiric antibiotics,Pullm following. Discussed with respiratory therapist. For CPAP trial today --Acute exacerbation of COPD Continue oxygen support, nebulizers, IV steroids IV antibiotics inhalation steroids and supportive care Anemia. Hgb 7.7 after PRBC transfusion. Recheck stool occult blood Acute on chronic kidney disease, improving Probably secondary to ATN. IV hydration. Creatinine 1.1 today . Encephalopathy /Opiate overdose; accidental. Hypotension/shock,Improved, off pressors Hypernatremia. SIRS; blood cultures urine cultures Lactic acid level within normal limits, empiric antibiotics ID evaluation if needed Metabolic acidosis secondary to acute renal failure DVT prophylaxis; with Lovenox, FULL CODE STATUS -- History Interval history: Patient with acute respiratory failure, still intubated, Fever on and off, T max 100.6 Hospitalist Physical - Physical exam Narrative exam: Gen: Not in acute distress, intubated orally Neck: No JVD Lungs: Bilateral rhonchi, no crackles. Heart:S1 and S2 reg, no murmurs,rubs or gallop Abd: soft, NT, ND, Normal bowel sounds Ext: No edema, no clubbing , no cyanosis Neuro: sedated, intubated, responsive - Constitutional Vitals: Temp Pulse Resp BP Pulse Ox 99.8 F H 74 36 H 137/53 98 03/30/16 12:00 03/30/16 13:38 03/30/16 13:01 03/30/16 13:38 03/30/16 13:01 General appearance: Present: no acute distress, well-nourished, obese, other ( intubated on ventilatory support) Results - Labs CBC & Chem 7: 03/30/16 05:15 03/30/16 05:15 Labs: Laboratory Last Values WBC 8.9 K/mm3 (4.5-11.0) 03/30/16 05:15 RBC 2.41 M/mm3 (3.65-5.03) L 03/30/16 05:15 Hgb 7.7 gm/dl (10.1-14.3) L 03/30/16 05:15 Hct 23.1 % (30.3-42.9) L 03/30/16 05:15 MCV 96 fl (79-97) 03/30/16 05:15 MCH 32 pg (28-32) 03/30/16 05:15 MCHC 33 % (30-34) 03/30/16 05:15 RDW 15.3 % (13.2-15.2) H 03/30/16 05:15 Plt Count 131 K/mm3 (140-440) L 03/30/16 05:15 Lymph % (Auto) 22.9 % (13.4-35.0) 03/27/16 06:00 [place] % (Auto) 12.5 % (0.0-7.3) H 03/27/16 06:00 Eos % (Auto) 1.1 % (0.0-4.3) 03/27/16 06:00 Baso % (Auto) 0.4 % (0.0-1.8) 03/27/16 06:00 Lymph # 1.4 K/mm3 (1.2-5.4) 03/27/16 06:00 [place] # 0.8 K/mm3 (0.0-0.8) 03/27/16 06:00 Eos # 0.1 K/mm3 (0.0-0.4) 03/27/16 06:00 Baso # 0.0 K/mm3 (0.0-0.1) 03/27/16 06:00 Add Manual Diff Complete 03/25/16 04:30 Total Counted 100 03/25/16 04:30 Seg Neutrophils % 63.1 % (40.0-70.0) 03/27/16 06:00 Seg Neuts % (Manual) 64.0 % (40.0-70.0) 03/25/16 04:30 Band Neutrophils % 18.0 % 03/25/16 04:30 Lymphocytes % (Manual) 10.0 % (13.4-35.0) L 03/25/16 04:30 Reactive Lymphs % (Man) 0 % 03/25/16 04:30 Monocytes % (Manual) 7.0 % (0.0-7.3) 03/25/16 04:30 Eosinophils % (Manual) 1.0 % (0.0-4.3) 03/25/16 04:30 Basophils % (Manual) 0 % (0.0-1.8) 03/25/16 04:30 Metamyelocytes % 0 % 03/25/16 04:30 Myelocytes % 0 % 03/25/16 04:30 Promyelocytes % 0 % 03/25/16 04:30 Blast Cells % 0 % 03/25/16 04:30 Nucleated RBC % Not Reportable 03/25/16 04:30 Seg Neutrophils # 3.9 K/mm3 (1.8-7.7) 03/27/16 06:00 Seg Neutrophils # Man 4.7 K/mm3 (1.8-7.7) 03/25/16 04:30 Band Neutrophils # 1.3 K/mm3 03/25/16 04:30 Lymphocytes # (Manual) 0.7 K/mm3 (1.2-5.4) L 03/25/16 04:30 Abs React Lymphs (Man) 0.0 K/mm3 03/25/16 04:30 Monocytes # (Manual) 0.5 K/mm3 (0.0-0.8) 03/25/16 04:30 Eosinophils # (Manual) 0.1 K/mm3 (0.0-0.4) 03/25/16 04:30 Basophils # (Manual) 0.0 K/mm3 (0.0-0.1) 03/25/16 04:30 Metamyelocytes # 0.0 K/mm3 03/25/16 04:30 Myelocytes # 0.0 K/mm3 03/25/16 04:30 Promyelocytes # 0.0 K/mm3 03/25/16 04:30 Blast Cells # 0.0 K/mm3 03/25/16 04:30 WBC Morphology Not Reportable 03/25/16 04:30 Hypersegmented Neuts Not Reportable 03/25/16 04:30 Hyposegmented Neuts Not Reportable 03/25/16 04:30 Hypogranular Neuts Not Reportable 03/25/16 04:30 Smudge Cells Not Reportable 03/25/16 04:30 Toxic Granulation Not Reportable 03/25/16 04:30 Toxic Vacuolation Not Reportable 03/25/16 04:30 Dohle Bodies Not Reportable 03/25/16 04:30 Pelger-Huet Anomaly Not Reportable 03/25/16 04:30 Sameer Rods Not Reportable 03/25/16 04:30 Platelet Estimate Appears decreased 03/25/16 04:30 Clumped Platelets Not Reportable 03/25/16 04:30 Plt Clumps, EDTA Not Reportable 03/25/16 04:30 Large Platelets Not Reportable 03/25/16 04:30 Giant Platelets Not Reportable 03/25/16 04:30 Platelet Satelliting Not Reportable 03/25/16 04:30 Plt Morphology Comment Not Reportable 03/25/16 04:30 RBC Morphology Not Reportable 03/25/16 04:30 Dimorphic RBCs Not Reportable 03/25/16 04:30 Polychromasia Not Reportable 03/25/16 04:30 Hypochromasia Not Reportable 03/25/16 04:30 Poikilocytosis Few 03/25/16 04:30 Anisocytosis Not Reportable 03/25/16 04:30 Microcytosis Not Reportable 03/25/16 04:30 Macrocytosis Not Reportable 03/25/16 04:30 Spherocytes Not Reportable 03/25/16 04:30 Pappenheimer Bodies Not Reportable 03/25/16 04:30 Sickle Cells Not Reportable 03/25/16 04:30 Target Cells Not Reportable 03/25/16 04:30 Tear Drop Cells Not Reportable 03/25/16 04:30 Ovalocytes Few 03/25/16 04:30 Helmet Cells Not Reportable 03/25/16 04:30 Steve-Dubach Bodies Not Reportable 03/25/16 04:30 Scott Rings Not Reportable 03/25/16 04:30 Hope Cells Not Reportable 03/25/16 04:30 Bite Cells Not Reportable 03/25/16 04:30 Crenated Cell Not Reportable 03/25/16 04:30 Elliptocytes Not Reportable 03/25/16 04:30 Acanthocytes (Spur) Not Reportable 03/25/16 04:30 Rouleaux Not Reportable 03/25/16 04:30 Hemoglobin C Crystals Not Reportable 03/25/16 04:30 Schistocytes Not Reportable 03/25/16 04:30 Malaria parasites Not Reportable 03/25/16 04:30 Konstantin Bodies Not Reportable 03/25/16 04:30 Hem Pathologist Commnt No 03/25/16 04:30 PT 16.8 Sec. (12.2-14.9) H 03/23/16 18:56 INR 1.37 (0.87-1.13) H 03/23/16 18:56 APTT 28.7 Sec. (24.2-36.6) 03/23/16 18:56 POC ABG pH 7.377 (7.35-7.45) 03/30/16 11:37 POC ABG pCO2 39.5 (35-45) 03/30/16 11:37 POC ABG pO2 80 (80-105) 03/30/16 11:37 POC ABG HCO3 23.2 03/30/16 11:37 POC ABG Total CO2 24 03/30/16 11:37 POC ABG O2 Sat 95 03/30/16 11:37 POC ABG Base Excess -2 03/30/16 11:37 FiO2 40 % 03/30/16 11:37 Sodium 145 mmol/L (137-145) 03/30/16 05:15 Potassium 3.6 mmol/L (3.6-5.0) 03/30/16 05:15 Chloride 107.0 mmol/L (98-107) 03/30/16 05:15 Carbon Dioxide 23 mmol/L (22-30) 03/30/16 05:15 Anion Gap 19 mmol/L 03/30/16 05:15 BUN 17 mg/dL (7-17) 03/30/16 05:15 Creatinine 1.1 mg/dL (0.7-1.2) 03/30/16 05:15 Estimated GFR 50 ml/min 03/30/16 05:15 BUN/Creatinine Ratio 15.45 % 03/30/16 05:15 Glucose 144 mg/dL (65-100) H 03/30/16 05:15 POC Glucose 167 (70-105) H 03/30/16 11:46 Lactic Acid 1.4 mmol/L (0.7-2.0) 03/23/16 20:10 Calcium 7.6 mg/dL (8.4-10.2) L 03/30/16 05:15 Phosphorus 3.8 mg/dL (2.5-4.5) 03/25/16 04:30 Magnesium 2.2 mg/dL (1.7-2.3) 03/28/16 05:30 Total Bilirubin 0.2 mg/dL (0.1-1.2) 03/25/16 04:30 Direct Bilirubin < 0.2 mg/dL (0-0.2) 03/25/16 04:30 Indirect Bilirubin 0.0 mg/dL 03/25/16 04:30 AST 20 units/L (5-40) 03/25/16 04:30 ALT 12 units/L (7-56) 03/25/16 04:30 Alkaline Phosphatase 86 units/L (35-129) 03/25/16 04:30 Total Protein 5.0 g/dL (6.3-8.2) L D 03/25/16 04:30 Albumin 2.4 g/dL (3.9-5) L 03/25/16 04:30 Albumin/Globulin Ratio 0.9 % 03/25/16 04:30 TSH 0.264 mlU/mL (0.270-4.200) L 03/23/16 17:33 Urine Color Yellow (Yellow) 03/23/16 20:13 Urine Turbidity Slightly-cloudy (Clear) 03/23/16 20:13 Urine pH 5.0 (5.0-7.0) 03/23/16 20:13 Ur Specific [place] 1.016 (1.003-1.030) 03/23/16 20:13 Urine Protein 100 mg/dl mg/dL (Negative) 03/23/16 20:13 Urine Glucose (UA) Neg mg/dL (Negative) 03/23/16 20:13 Urine Ketones Neg mg/dL (Negative) 03/23/16 20:13 Urine Blood Mod (Negative) 03/23/16 20:13 Urine Nitrite Neg (Negative) 03/23/16 20:13 Urine Bilirubin Neg (Negative) 03/23/16 20:13 Urine Urobilinogen < 2.0 mg/dL (<2.0) 03/23/16 20:13 Ur Leukocyte Esterase Neg (Negative) 03/23/16 20:13 Urine WBC (Auto) < 1.0 /HPF (0.0-6.0) 03/23/16 20:13 Urine RBC (Auto) < 1.0 /HPF (0.0-6.0) 03/23/16 20:13 U Epithel Cells (Auto) < 1.0 /HPF (0-13.0) 03/23/16 20:13 Urine Mucus Few /HPF 03/23/16 20:13 Salicylates 0.6 mg/dL (2.8-20.0) L 03/23/16 17:33 Urine Opiates Screen Presumptive positive 03/23/16 20:13 Urine Methadone Screen Presumptive negative 03/23/16 20:13 Acetaminophen < 15.0 ug/mL (10.0-30.0) 03/23/16 17:33 Ur Barbiturates Screen Presumptive negative 03/23/16 20:13 Ur Phencyclidine Scrn Presumptive negative 03/23/16 20:13 Ur Amphetamines Screen Presumptive negative 03/23/16 20:13 U Benzodiazepines Scrn Presumptive negative 03/23/16 20:13 Urine Cocaine Screen Presumptive negative 03/23/16 20:13 U Marijuana (THC) Screen Presumptive negative 03/23/16 20:13 Drugs of Abuse Note Disclamer 03/23/16 20:13 Plasma/Serum Alcohol < 0.01 gm% (0-0.07) 03/23/16 17:45 Blood Type B NEGATIVE 03/29/16 12:30 Antibody Screen Negative 03/29/16 12:30 Crossmatch See Detail 03/29/16 12:30
[2016-03-30] MEDS ORDERED: D5/0.45NS 1,000 ML IV SCH (18:00)
[2016-03-30] MEDS: XALATAN 0.005% OU SCH (21:34)
[2016-03-31] MEDS: NOVOLOG SUB-Q SCH ×4 (02:01→18:24)
[2016-03-31] MEDS: SUBLIMAZE 2,000 MCG in NACL 0.9% 60 ML IV SCH (06:06)
[2016-03-31] MEDS: CATAPRES PO SCH ×3 (06:08→22:34)
[2016-03-31] MEDS: HEPARIN SUB-Q SCH ×3 (06:08→22:35)
[2016-03-31] MEDS: HALDOL IV PRN (06:09)
[2016-03-31 06:55] LABS: Hemoglobin 7.7 gm/dl (10.1-14.3); Mean Corpuscular HGB Conc 33 % (30-34); Mean Corpuscular Hemoglobin 32 pg (28-32); Mean Corpuscular Volume 96 fl (79-97); Platelet Count 157 K/mm3 (140-440); Red Blood Count 2.38 M/mm3 (3.65-5.03); Red Cell Distribution Width 14.6 % (13.2-15.2); White Blood Count 9.5 K/mm3 (4.5-11.0)
[2016-03-31 07:10] LABS: Anion Gap 15 mmol/L; BUN/Creatinine Ratio 15.55; Blood Urea Nitrogen 14 mg/dL (7-17); Calcium 8.1 mg/dL (8.4-10.2); Carbon Dioxide 25 mmol/L (22-30); Chloride 105.9 mmol/L (98-107); Glucose 193 mg/dL (65-100); Potassium 3.8 mmol/L (3.6-5.0); Sodium 142 mmol/L (137-145)
[2016-03-31] MEDS: DUONEB 0.5 MG-3 MG/3 ML SOLN IH SCH ×3 (08:05→19:53)
--- NOTE | 2016-03-31 09:23 | Progress Note ---
Assessment and Plan Assessment and plan: Acute respiratory failure due to COPD exacerbation. She is still orally intubated on ventilatory support nebulizers, IV steroids, Empiric antibiotics,Pullm following. failed weaning attempts. --Acute exacerbation of COPD Continue oxygen support, nebulizers, IV steroids IV antibiotics inhalation steroids and supportive care Anemia. Hgb 7.7 after PRBC transfusion. Stool occult blood negative. Acute on chronic kidney disease, improving Probably secondary to ATN. IV hydration. Creatinine 0.9 today . Encephalopathy /Opiate overdose; accidental. Hypotension/shock,Improved, off pressors Hypernatremia. This is resolved. Sodium 142 today SIRS; Metabolic acidosis secondary to acute renal failure DVT prophylaxis; with Lovenox, FULL CODE STATUS -- History Interval history: Patient with acute respiratory failure, still intubated, Fever of 100.8 this morning. Hospitalist Physical - Physical exam Narrative exam: Gen: Not in acute distress, intubated orally Neck: No JVD Lungs: Bilateral rhonchi, no crackles. Heart:S1 and S2 reg, no murmurs,rubs or gallop Abd: soft, NT, ND, Normal bowel sounds Ext: No edema, no clubbing , no cyanosis Neuro: sedated, intubated, responsive - Constitutional Vitals: Temp Pulse Resp BP Pulse Ox 98.6 F 101 H 25 H 152/65 97 03/31/16 04:00 03/31/16 09:00 03/31/16 08:18 03/31/16 09:00 03/31/16 09:00 General appearance: Present: no acute distress, well-nourished, obese, other ( intubated on ventilatory support) Results - Labs CBC & Chem 7: 03/31/16 06:30 03/31/16 06:30 Labs: Laboratory Last Values WBC 9.5 K/mm3 (4.5-11.0) 03/31/16 06:30 RBC 2.38 M/mm3 (3.65-5.03) L 03/31/16 06:30 Hgb 7.7 gm/dl (10.1-14.3) L 03/31/16 06:30 Hct 23.0 % (30.3-42.9) L 03/31/16 06:30 MCV 96 fl (79-97) 03/31/16 06:30 MCH 32 pg (28-32) 03/31/16 06:30 MCHC 33 % (30-34) 03/31/16 06:30 RDW 14.6 % (13.2-15.2) 03/31/16 06:30 Plt Count 157 K/mm3 (140-440) 03/31/16 06:30 Lymph % (Auto) 22.9 % (13.4-35.0) 03/27/16 06:00 [place] % (Auto) 12.5 % (0.0-7.3) H 03/27/16 06:00 Eos % (Auto) 1.1 % (0.0-4.3) 03/27/16 06:00 Baso % (Auto) 0.4 % (0.0-1.8) 03/27/16 06:00 Lymph # 1.4 K/mm3 (1.2-5.4) 03/27/16 06:00 [place] # 0.8 K/mm3 (0.0-0.8) 03/27/16 06:00 Eos # 0.1 K/mm3 (0.0-0.4) 03/27/16 06:00 Baso # 0.0 K/mm3 (0.0-0.1) 03/27/16 06:00 Add Manual Diff Complete 03/25/16 04:30 Total Counted 100 03/25/16 04:30 Seg Neutrophils % 63.1 % (40.0-70.0) 03/27/16 06:00 Seg Neuts % (Manual) 64.0 % (40.0-70.0) 03/25/16 04:30 Band Neutrophils % 18.0 % 03/25/16 04:30 Lymphocytes % (Manual) 10.0 % (13.4-35.0) L 03/25/16 04:30 Reactive Lymphs % (Man) 0 % 03/25/16 04:30 Monocytes % (Manual) 7.0 % (0.0-7.3) 03/25/16 04:30 Eosinophils % (Manual) 1.0 % (0.0-4.3) 03/25/16 04:30 Basophils % (Manual) 0 % (0.0-1.8) 03/25/16 04:30 Metamyelocytes % 0 % 03/25/16 04:30 Myelocytes % 0 % 03/25/16 04:30 Promyelocytes % 0 % 03/25/16 04:30 Blast Cells % 0 % 03/25/16 04:30 Nucleated RBC % Not Reportable 03/25/16 04:30 Seg Neutrophils # 3.9 K/mm3 (1.8-7.7) 03/27/16 06:00 Seg Neutrophils # Man 4.7 K/mm3 (1.8-7.7) 03/25/16 04:30 Band Neutrophils # 1.3 K/mm3 03/25/16 04:30 Lymphocytes # (Manual) 0.7 K/mm3 (1.2-5.4) L 03/25/16 04:30 Abs React Lymphs (Man) 0.0 K/mm3 03/25/16 04:30 Monocytes # (Manual) 0.5 K/mm3 (0.0-0.8) 03/25/16 04:30 Eosinophils # (Manual) 0.1 K/mm3 (0.0-0.4) 03/25/16 04:30 Basophils # (Manual) 0.0 K/mm3 (0.0-0.1) 03/25/16 04:30 Metamyelocytes # 0.0 K/mm3 03/25/16 04:30 Myelocytes # 0.0 K/mm3 03/25/16 04:30 Promyelocytes # 0.0 K/mm3 03/25/16 04:30 Blast Cells # 0.0 K/mm3 03/25/16 04:30 WBC Morphology Not Reportable 03/25/16 04:30 Hypersegmented Neuts Not Reportable 03/25/16 04:30 Hyposegmented Neuts Not Reportable 03/25/16 04:30 Hypogranular Neuts Not Reportable 03/25/16 04:30 Smudge Cells Not Reportable 03/25/16 04:30 Toxic Granulation Not Reportable 03/25/16 04:30 Toxic Vacuolation Not Reportable 03/25/16 04:30 Dohle Bodies Not Reportable 03/25/16 04:30 Pelger-Huet Anomaly Not Reportable 03/25/16 04:30 Sameer Rods Not Reportable 03/25/16 04:30 Platelet Estimate Appears decreased 03/25/16 04:30 Clumped Platelets Not Reportable 03/25/16 04:30 Plt Clumps, EDTA Not Reportable 03/25/16 04:30 Large Platelets Not Reportable 03/25/16 04:30 Giant Platelets Not Reportable 03/25/16 04:30 Platelet Satelliting Not Reportable 03/25/16 04:30 Plt Morphology Comment Not Reportable 03/25/16 04:30 RBC Morphology Not Reportable 03/25/16 04:30 Dimorphic RBCs Not Reportable 03/25/16 04:30 Polychromasia Not Reportable 03/25/16 04:30 Hypochromasia Not Reportable 03/25/16 04:30 Poikilocytosis Few 03/25/16 04:30 Anisocytosis Not Reportable 03/25/16 04:30 Microcytosis Not Reportable 03/25/16 04:30 Macrocytosis Not Reportable 03/25/16 04:30 Spherocytes Not Reportable 03/25/16 04:30 Pappenheimer Bodies Not Reportable 03/25/16 04:30 Sickle Cells Not Reportable 03/25/16 04:30 Target Cells Not Reportable 03/25/16 04:30 Tear Drop Cells Not Reportable 03/25/16 04:30 Ovalocytes Few 03/25/16 04:30 Helmet Cells Not Reportable 03/25/16 04:30 [place] Bodies Not Reportable 03/25/16 04:30 [place] Rings Not Reportable 03/25/16 04:30 [place] Cells Not Reportable 03/25/16 04:30 Bite Cells Not Reportable 03/25/16 04:30 Crenated Cell Not Reportable 03/25/16 04:30 Elliptocytes Not Reportable 03/25/16 04:30 Acanthocytes (Spur) Not Reportable 03/25/16 04:30 Rouleaux Not Reportable 03/25/16 04:30 Hemoglobin C Crystals Not Reportable 03/25/16 04:30 Schistocytes Not Reportable 03/25/16 04:30 Malaria parasites Not Reportable 03/25/16 04:30 Konstantin Bodies Not Reportable 03/25/16 04:30 Hem Pathologist Commnt No 03/25/16 04:30 PT 16.8 Sec. (12.2-14.9) H 03/23/16 18:56 INR 1.37 (0.87-1.13) H 03/23/16 18:56 APTT 28.7 Sec. (24.2-36.6) 03/23/16 18:56 POC ABG pH 7.377 (7.35-7.45) 03/30/16 11:37 POC ABG pCO2 39.5 (35-45) 03/30/16 11:37 POC ABG pO2 80 (80-105) 03/30/16 11:37 POC ABG HCO3 23.2 03/30/16 11:37 POC ABG Total CO2 24 03/30/16 11:37 POC ABG O2 Sat 95 03/30/16 11:37 POC ABG Base Excess -2 03/30/16 11:37 FiO2 40 % 03/30/16 11:37 Sodium 142 mmol/L (137-145) 03/31/16 06:30 Potassium 3.8 mmol/L (3.6-5.0) 03/31/16 06:30 Chloride 105.9 mmol/L (98-107) 03/31/16 06:30 Carbon Dioxide 25 mmol/L (22-30) 03/31/16 06:30 Anion Gap 15 mmol/L 03/31/16 06:30 BUN 14 mg/dL (7-17) 03/31/16 06:30 Creatinine 0.9 mg/dL (0.7-1.2) 03/31/16 06:30 Estimated GFR > 60 ml/min 03/31/16 06:30 BUN/Creatinine Ratio 15.55 % 03/31/16 06:30 Glucose 193 mg/dL (65-100) H 03/31/16 06:30 POC Glucose 222 (70-105) H 03/31/16 05:25 Lactic Acid 1.4 mmol/L (0.7-2.0) 03/23/16 20:10 Calcium 8.1 mg/dL (8.4-10.2) L 03/31/16 06:30 Phosphorus 3.8 mg/dL (2.5-4.5) 03/25/16 04:30 Magnesium 2.2 mg/dL (1.7-2.3) 03/28/16 05:30 Total Bilirubin 0.2 mg/dL (0.1-1.2) 03/25/16 04:30 Direct Bilirubin < 0.2 mg/dL (0-0.2) 03/25/16 04:30 Indirect Bilirubin 0.0 mg/dL 03/25/16 04:30 AST 20 units/L (5-40) 03/25/16 04:30 ALT 12 units/L (7-56) 03/25/16 04:30 Alkaline Phosphatase 86 units/L (35-129) 03/25/16 04:30 Total Protein 5.0 g/dL (6.3-8.2) L D 03/25/16 04:30 Albumin 2.4 g/dL (3.9-5) L 03/25/16 04:30 Albumin/Globulin Ratio 0.9 % 03/25/16 04:30 TSH 0.264 mlU/mL (0.270-4.200) L 03/23/16 17:33 Urine Color Yellow (Yellow) 03/23/16 20:13 Urine Turbidity Slightly-cloudy (Clear) 03/23/16 20:13 Urine pH 5.0 (5.0-7.0) 03/23/16 20:13 Ur Specific [place] 1.016 (1.003-1.030) 03/23/16 20:13 Urine Protein 100 mg/dl mg/dL (Negative) 03/23/16 20:13 Urine Glucose (UA) Neg mg/dL (Negative) 03/23/16 20:13 Urine Ketones Neg mg/dL (Negative) 03/23/16 20:13 Urine Blood Mod (Negative) 03/23/16 20:13 Urine Nitrite Neg (Negative) 03/23/16 20:13 Urine Bilirubin Neg (Negative) 03/23/16 20:13 Urine Urobilinogen < 2.0 mg/dL (<2.0) 03/23/16 20:13 Ur Leukocyte Esterase Neg (Negative) 03/23/16 20:13 Urine WBC (Auto) < 1.0 /HPF (0.0-6.0) 03/23/16 20:13 Urine RBC (Auto) < 1.0 /HPF (0.0-6.0) 03/23/16 20:13 U Epithel Cells (Auto) < 1.0 /HPF (0-13.0) 03/23/16 20:13 Urine Mucus Few /HPF 03/23/16 20:13 Salicylates 0.6 mg/dL (2.8-20.0) L 03/23/16 17:33 Urine Opiates Screen Presumptive positive 03/23/16 20:13 Urine Methadone Screen Presumptive negative 03/23/16 20:13 Acetaminophen < 15.0 ug/mL (10.0-30.0) 03/23/16 17:33 Ur Barbiturates Screen Presumptive negative 03/23/16 20:13 Ur Phencyclidine Scrn Presumptive negative 03/23/16 20:13 Ur Amphetamines Screen Presumptive negative 03/23/16 20:13 U Benzodiazepines Scrn Presumptive negative 03/23/16 20:13 Urine Cocaine Screen Presumptive negative 03/23/16 20:13 U Marijuana (THC) Screen Presumptive negative 03/23/16 20:13 Drugs of Abuse Note Disclamer 03/23/16 20:13 Plasma/Serum Alcohol < 0.01 gm% (0-0.07) 03/23/16 17:45 Blood Type B NEGATIVE 03/29/16 12:30 Antibody Screen Negative 03/29/16 12:30 Crossmatch See Detail 03/29/16 12:30
--- NOTE | 2016-03-31 09:54 | XRay Report ---
Single view abdomen: History: NG tube placement. Findings: Tip of NG tube is noted just below the GE junction. Should be advanced approximately 4 cm. No bowel distention. Impression: Findings as detailed above.
--- NOTE | 2016-03-31 09:55 | XRay Report ---
Single view chest: Compared to 03/26/16. History: Followup of respiratory failure. Findings: Borderline cardiomegaly. Stable support system. Pulmonary vascular congestion. No consolidation or pleural effusion. Impression: No significant interval change.
[2016-03-31] MEDS: DIFLUCAN/NS 100 MG/50 ML 50 ML IV SCH (10:22)
[2016-03-31] MEDS: LEVAQUIN 750MG/150ML 150 ML IV SCH (10:22)
[2016-03-31] MEDS: PEPCID PO SCH ×2 (10:23→22:34)
[2016-03-31] MEDS: NEURONTIN PO SCH ×3 (10:23→22:33)
[2016-03-31] MEDS: PLAVIX PO SCH (10:23)
[2016-03-31] MEDS: SENOKOT S PO SCH ×2 (14:28→22:34)
--- NOTE | 2016-03-31 16:47 | Progress Note ---
Assessment and Plan - Patient Problems (1) Respiratory failure Current Visit: Yes Status: Acute Qualifiers: Chronicity: acute Respiratory failure complication: hypoxia Qualified Code(s): J96.01 - Acute respiratory failure with hypoxia Plan to address problem: Continue with mechanical ventilatory support, daily SBTs as tolerated. Lung protective strategies. Analgesia and agitation management HOB >30, aspiration precautions. Nutritional support. VAP bundle and critical care bundles addressed. VTE and stress ulcer prophylaxis RT to attempt another PSV trial now. If tolerated, place back on full support. Will repeat SBT in the morning and get weaning parameters to assess readiness for liberation from mechanical ventilatory support. (2) Metabolic acidosis Current Visit: Yes Status: Acute (3) Accidental drug overdose Current Visit: No Status: Acute (4) Acute renal failure Current Visit: Yes Status: Acute Qualifiers: Acute renal failure type: unspecified Qualified Code(s): N17.9 - Acute kidney failure, unspecified Plan to address problem: Avoid nephrotoxic medications. Adjust medication dosages for Cr[facility] Nephrology following (5) Altered mental status Current Visit: Yes Status: Acute Qualifiers: Altered mental status type: unspecified Qualified Code(s): R41.82 - Altered mental status, unspecified Plan to address problem: Continue to monitor closely. Probably toxic and metabolic from metabolic derangements and accidental overdose. Continue with aspiration precautions Subjective Date of service: 03/31/16 Principal diagnosis: Acute Hypoxemic Respiratory Failure Interval history: This is 65 year old white female admitted with drug overdose, altered mental status and hypotension.Patient intubated and placed on mechanical ventilation.Patient has history of hypertension, chronic kidney disease , DM and COPD.Patient has history of smoking and chronic narcotic drug use for chronic pain. Current smoking status not known. No history of alcohol. Allergic to sulfa.Drug screen positive for Opiates. 03/26/16 Patient less agitated. Still on mechanical ventilation. RT attempted PSV today 02/12- very low lung volumes though she was more awake and alert. High grade fevers overnight- cultures were sent . Currently on renally dosed Zosyn, metabolic acidosis improving on bicarbonate infusion. On heparin and famotidine for VTE/stress ulcer prophylaxis Today 03/31/2016 Less agitation. Tried on SBT this morning had episodes of desaturations and was placed back on full support. Discussed with RT just now so we can try another SBT. Family and friends at the bedside. otherwise no overnight events reported. Objective - Exam Narrative Exam: Gen: Not in acute distress, intubated Neck: No JVD Lungs: Bilateral rhonchi, no crackles. Hear:S1 and S2 reg, no murmurs,rubs or gallop Abd: soft, NT, ND, Normal bowel sounds Ext: No edema, no clubbing , no cyanosis Neuro: sedated, intubated, moves all extremities Vital Signs - 12hr 03/31/16 03/31/16 03/31/16 04:45 05:01 05:29 Temperature Pulse Rate 75 97 H 99 H Pulse Rate [ Anterior Bilateral Throughout] Pulse Rate [ From Monitor] Respiratory 23 20 Rate Respiratory Rate [Anterior Bilateral Throughout] Blood Pressure 138/58 149/55 149/55 O2 Sat by Pulse 98 97 97 Oximetry 03/31/16 03/31/16 03/31/16 05:31 06:00 06:06 Temperature Pulse Rate 82 74 Pulse Rate [ Anterior Bilateral Throughout] Pulse Rate [ From Monitor] Respiratory 25 H 20 22 Rate Respiratory Rate [Anterior Bilateral Throughout] Blood Pressure 149/55 154/59 154/59 O2 Sat by Pulse 98 98 Oximetry 03/31/16 03/31/16 03/31/16 06:08 06:31 07:00 Temperature Pulse Rate 72 76 67 Pulse Rate [ Anterior Bilateral Throughout] Pulse Rate [ From Monitor] Respiratory 20 13 Rate Respiratory Rate [Anterior Bilateral Throughout] Blood Pressure 154/59 154/59 136/55 O2 Sat by Pulse 99 96 Oximetry 03/31/16 03/31/16 03/31/16 07:13 07:31 07:58 Temperature Pulse Rate 104 H 98 H 89 Pulse Rate [ 89 Anterior Bilateral Throughout] Pulse Rate [ From Monitor] Respiratory 15 28 H Rate Respiratory 27 H Rate [Anterior Bilateral Throughout] Blood Pressure 136/55 136/55 136/55 O2 Sat by Pulse 97 95 98 Oximetry 03/31/16 03/31/16 03/31/16 08:00 08:01 08:15 Temperature 100.8 F H Pulse Rate 98 H 102 H Pulse Rate [ Anterior Bilateral Throughout] Pulse Rate [ 114 H From Monitor] Respiratory 25 H 22 25 H Rate Respiratory Rate [Anterior Bilateral Throughout] Blood Pressure 139/62 139/62 O2 Sat by Pulse 97 98 Oximetry 03/31/16 03/31/16 03/31/16 08:18 08:31 09:00 Temperature Pulse Rate 106 H 97 H 103 H Pulse Rate [ 101 H Anterior Bilateral Throughout] Pulse Rate [ From Monitor] Respiratory 35 H 24 Rate Respiratory 25 H Rate [Anterior Bilateral Throughout] Blood Pressure 139/62 139/62 152/65 O2 Sat by Pulse 95 77 L 97 Oximetry 03/31/16 03/31/16 03/31/16 09:31 10:00 10:05 Temperature Pulse Rate 93 H 86 81 Pulse Rate [ Anterior Bilateral Throughout] Pulse Rate [ From Monitor] Respiratory 32 H 24 23 Rate Respiratory Rate [Anterior Bilateral Throughout] Blood Pressure 152/65 133/48 133/48 O2 Sat by Pulse 94 93 93 Oximetry 03/31/16 03/31/16 03/31/16 10:31 10:59 11:00 Temperature Pulse Rate 80 81 80 Pulse Rate [ Anterior Bilateral Throughout] Pulse Rate [ From Monitor] Respiratory 23 26 H 27 H Rate Respiratory Rate [Anterior Bilateral Throughout] Blood Pressure 133/48 133/48 140/57 O2 Sat by Pulse 93 97 96 Oximetry 03/31/16 03/31/16 03/31/16 11:03 12:00 12:01 Temperature Pulse Rate 78 78 76 Pulse Rate [ Anterior Bilateral Throughout] Pulse Rate [ From Monitor] Respiratory 26 H 28 H Rate Respiratory Rate [Anterior Bilateral Throughout] Blood Pressure 140/57 145/48 140/57 O2 Sat by Pulse 97 96 98 Oximetry 03/31/16 03/31/16 03/31/16 12:28 12:39 12:59 Temperature Pulse Rate 74 74 74 Pulse Rate [ Anterior Bilateral Throughout] Pulse Rate [ From Monitor] Respiratory 27 H 19 17 Rate Respiratory Rate [Anterior Bilateral Throughout] Blood Pressure 145/48 145/48 145/48 O2 Sat by Pulse 97 97 97 Oximetry 03/31/16 03/31/16 03/31/16 13:00 13:01 13:15 Temperature 99.4 F Pulse Rate 77 76 Pulse Rate [ Anterior Bilateral Throughout] Pulse Rate [ From Monitor] Respiratory 21 20 Rate Respiratory Rate [Anterior Bilateral Throughout] Blood Pressure 138/54 138/54 O2 Sat by Pulse 94 97 Oximetry 03/31/16 03/31/16 03/31/16 14:00 14:49 15:32 Temperature Pulse Rate 85 70 71 Pulse Rate [ 71 Anterior Bilateral Throughout] Pulse Rate [ From Monitor] Respiratory 19 Rate Respiratory 21 Rate [Anterior Bilateral Throughout] Blood Pressure 137/50 137/50 139/60 O2 Sat by Pulse 100 Oximetry 03/31/16 15:47 Temperature Pulse Rate Pulse Rate [ 76 Anterior Bilateral Throughout] Pulse Rate [ From Monitor] Respiratory Rate Respiratory 22 Rate [Anterior Bilateral Throughout] Blood Pressure O2 Sat by Pulse Oximetry Constitutional: no acute distress, lethargic, asleep, other (On mechanical ventilation) Eyes: non-icteric ENT: oropharynx moist Neck: supple, no JVD Ascultation: Bilateral: diminished breath sounds, rhonchi (coarse breath sounds) Cardiovascular: regular rate and rhythm Gastrointestinal: normoactive bowel sounds, soft, non-tender, non-distended Integumentary: normal Extremities: no cyanosis, no edema Neurologic: non-focal exam, unable to assess Psychiatric: other (Can not assess at this time.) CBC and BMP: 03/31/16 06:30 03/31/16 06:30 ABG, PT/INR, D-dimer: ABG POC ABG pH 7.377 (7.35-7.45) 03/30/16 11:37 POC ABG pCO2 39.5 (35-45) 03/30/16 11:37 POC ABG pO2 80 (80-105) 03/30/16 11:37 POC ABG HCO3 23.2 03/30/16 11:37 POC ABG Total CO2 24 03/30/16 11:37 POC ABG O2 Sat 95 03/30/16 11:37 PT/INR, D-dimer PT 16.8 Sec. (12.2-14.9) H 03/23/16 18:56 INR 1.37 (0.87-1.13) H 03/23/16 18:56 Abnormal lab findings: Abnormal Labs 03/24/16 03/24/16 03/24/16 00:10 05:04 05:12 RBC 2.42 L Hgb 7.8 L Hct 23.4 L MCV 99 H MCH RDW Plt Count 139 L [place] % (Auto) 10.4 H Lymph # 0.9 L Seg Neutrophils % 71.0 H Lymphocytes % (Manual) Lymphocytes # (Manual) POC ABG pH 7.279 L POC ABG pCO2 33.6 L POC ABG pO2 112 H Sodium Chloride Carbon Dioxide BUN Creatinine Glucose POC Glucose 144 H Calcium Total Protein Albumin Crossmatch 03/24/16 03/24/16 03/25/16 05:12 05:50 04:30 RBC 2.55 L Hgb 8.0 L Hct 25.0 L MCV 98 H MCH RDW 15.6 H Plt Count [place] % (Auto) Lymph # Seg Neutrophils % Lymphocytes % (Manual) 10.0 L Lymphocytes # (Manual) 0.7 L POC ABG pH POC ABG pCO2 POC ABG pO2 Sodium Chloride 112.3 H Carbon Dioxide 17 L BUN 51 H Creatinine 2.3 H Glucose POC Glucose 107 H Calcium 7.0 L Total Protein Albumin Crossmatch 03/25/16 03/25/16 03/25/16 04:30 04:58 10:17 RBC Hgb Hct MCV MCH RDW Plt Count [place] % (Auto) Lymph # Seg Neutrophils % Lymphocytes % (Manual) Lymphocytes # (Manual) POC ABG pH 7.285 L 7.261 L POC ABG pCO2 27.2 L 28.6 L POC ABG pO2 112 H Sodium 148 H Chloride 116.9 H Carbon Dioxide 14 L BUN 38 H Creatinine 1.7 H Glucose POC Glucose Calcium 7.1 L Total Protein 5.0 L D Albumin 2.4 L Crossmatch 03/26/16 03/26/16 03/26/16 05:30 05:30 05:32 RBC 2.37 L Hgb 7.7 L Hct 23.0 L MCV MCH 33 H RDW Plt Count 134 L [place] % (Auto) 15.2 H Lymph # 0.9 L Seg Neutrophils % Lymphocytes % (Manual) Lymphocytes # (Manual) POC ABG pH POC ABG pCO2 31.8 L POC ABG pO2 Sodium 147 H Chloride 112.3 H Carbon Dioxide 21 L D BUN 20 H Creatinine 1.3 H Glucose 121 H POC Glucose Calcium 7.6 L Total Protein Albumin Crossmatch 03/26/16 03/26/16 03/26/16 06:05 11:46 17:24 RBC Hgb Hct MCV MCH RDW Plt Count [place] % (Auto) Lymph # Seg Neutrophils % Lymphocytes % (Manual) Lymphocytes # (Manual) POC ABG pH POC ABG pCO2 POC ABG pO2 Sodium Chloride Carbon Dioxide BUN Creatinine Glucose POC Glucose 115 H 146 H 134 H Calcium Total Protein Albumin Crossmatch 03/26/16 03/27/16 03/27/16 23:41 06:00 06:00 RBC 2.46 L Hgb 7.8 L Hct 23.7 L MCV MCH RDW Plt Count 138 L [place] % (Auto) 12.5 H Lymph # Seg Neutrophils % Lymphocytes % (Manual) Lymphocytes # (Manual) POC ABG pH POC ABG pCO2 POC ABG pO2 Sodium Chloride Carbon Dioxide BUN Creatinine Glucose POC Glucose 155 H Calcium 7.6 L Total Protein Albumin Crossmatch 03/27/16 03/27/16 03/27/16 11:25 17:37 18:01 RBC Hgb Hct MCV MCH RDW Plt Count [place] % (Auto) Lymph # Seg Neutrophils % Lymphocytes % (Manual) Lymphocytes # (Manual) POC ABG pH POC ABG pCO2 POC ABG pO2 Sodium Chloride Carbon Dioxide BUN Creatinine Glucose POC Glucose 163 H 173 H 171 H Calcium Total Protein Albumin Crossmatch 03/27/16 03/28/16 03/28/16 23:51 04:53 05:47 RBC Hgb Hct MCV MCH RDW Plt Count [place] % (Auto) Lymph # Seg Neutrophils % Lymphocytes % (Manual) Lymphocytes # (Manual) POC ABG pH POC ABG pCO2 34.9 L POC ABG pO2 Sodium Chloride Carbon Dioxide BUN Creatinine Glucose POC Glucose 136 H 164 H Calcium Total Protein Albumin Crossmatch 03/28/16 03/28/16 03/29/16 11:54 17:33 00:11 RBC Hgb Hct MCV MCH RDW Plt Count [place] % (Auto) Lymph # Seg Neutrophils % Lymphocytes % (Manual) Lymphocytes # (Manual) POC ABG pH POC ABG pCO2 POC ABG pO2 Sodium Chloride Carbon Dioxide BUN Creatinine Glucose POC Glucose 129 H 148 H 154 H Calcium Total Protein Albumin Crossmatch 03/29/16 03/29/16 03/29/16 04:43 05:00 05:00 RBC 2.07 L Hgb 6.7 L Hct 20.2 L MCV MCH RDW Plt Count 121 L [place] % (Auto) Lymph # Seg Neutrophils % Lymphocytes % (Manual) Lymphocytes # (Manual) POC ABG pH 7.471 H POC ABG pCO2 POC ABG pO2 Sodium 149 H Chloride 111.2 H Carbon Dioxide BUN Creatinine 1.3 H Glucose 110 H POC Glucose Calcium 7.6 L Total Protein Albumin Crossmatch 03/29/16 03/29/16 03/29/16 05:35 09:30 11:40 RBC Hgb 6.5 L Hct 20.0 L MCV MCH RDW Plt Count [place] % (Auto) Lymph # Seg Neutrophils % Lymphocytes % (Manual) Lymphocytes # (Manual) POC ABG pH POC ABG pCO2 POC ABG pO2 Sodium Chloride Carbon Dioxide BUN Creatinine Glucose POC Glucose 108 H 141 H Calcium Total Protein Albumin Crossmatch 03/29/16 03/29/16 03/30/16 12:30 17:45 05:15 RBC 2.41 L Hgb 7.7 L Hct 23.1 L MCV MCH RDW 15.3 H Plt Count 131 L [place] % (Auto) Lymph # Seg Neutrophils % Lymphocytes % (Manual) Lymphocytes # (Manual) POC ABG pH POC ABG pCO2 POC ABG pO2 Sodium Chloride Carbon Dioxide BUN Creatinine Glucose POC Glucose 200 H Calcium Total Protein Albumin Crossmatch See Detail 03/30/16 03/30/16 03/30/16 05:15 05:56 11:46 RBC Hgb Hct MCV MCH RDW Plt Count [place] % (Auto) Lymph # Seg Neutrophils % Lymphocytes % (Manual) Lymphocytes # (Manual) POC ABG pH POC ABG pCO2 POC ABG pO2 Sodium Chloride Carbon Dioxide BUN Creatinine Glucose 144 H POC Glucose 141 H 167 H Calcium 7.6 L Total Protein Albumin Crossmatch 03/30/16 03/30/16 03/31/16 18:17 23:37 05:25 RBC Hgb Hct MCV MCH RDW Plt Count [place] % (Auto) Lymph # Seg Neutrophils % Lymphocytes % (Manual) Lymphocytes # (Manual) POC ABG pH POC ABG pCO2 POC ABG pO2 Sodium Chloride Carbon Dioxide BUN Creatinine Glucose POC Glucose 190 H 266 H 222 H Calcium Total Protein Albumin Crossmatch 03/31/16 03/31/16 06:30 06:30 RBC 2.38 L Hgb 7.7 L Hct 23.0 L MCV MCH RDW Plt Count [place] % (Auto) Lymph # Seg Neutrophils % Lymphocytes % (Manual) Lymphocytes # (Manual) POC ABG pH POC ABG pCO2 POC ABG pO2 Sodium Chloride Carbon Dioxide BUN Creatinine Glucose 193 H POC Glucose Calcium 8.1 L Total Protein Albumin Crossmatch Chest x-ray: report reviewed
[2016-04-01] MEDS: NOVOLOG SUB-Q SCH ×4 (01:55→17:55)
[2016-04-01 05:28] LABS: ISTAT Base Excess 0; ISTAT HCO3 23.9; ISTAT PCO2 33.2 (35-45); ISTAT PH 7.465 (7.35-7.45); ISTAT PO2 92 (80-105); ISTAT SO2 98; ISTAT TCO2 25
[2016-04-01] MEDS: HEPARIN SUB-Q SCH ×3 (06:54→22:59)
[2016-04-01] MEDS: CATAPRES PO SCH ×3 (06:54→22:59)
[2016-04-01] MEDS: DUONEB 0.5 MG-3 MG/3 ML SOLN IH SCH ×3 (08:50→20:15)
[2016-04-01] MEDS: NEURONTIN PO SCH ×3 (09:00→20:55)
[2016-04-01] MEDS: LEVAQUIN 750MG/150ML 150 ML IV SCH (09:33)
[2016-04-01] MEDS: SENOKOT S PO SCH ×2 (09:34→23:01)
[2016-04-01] MEDS: PEPCID PO SCH ×2 (09:34→22:59)
[2016-04-01] MEDS: PLAVIX PO SCH (09:34)
--- NOTE | 2016-04-01 10:17 | Progress Note ---
Assessment and Plan Assessment and plan: Acute respiratory failure due to COPD exacerbation. She is still orally intubated on ventilatory support nebulizers, IV steroids, Empiric antibiotics,Pulm following. failed multiple weaning attempts. --Acute exacerbation of COPD Continue oxygen support, nebulizers, IV steroids IV antibiotics inhalation steroids and supportive care Anemia. Hgb 7.7 after PRBC transfusion. Stool occult blood negative x 2 Acute on chronic kidney disease, improving Probably secondary to ATN. IV hydration. Creatinine 0.9 yesterday . Encephalopathy /Opiate overdose; accidental. Hypotension/shock,Improved, off pressors Hypernatremia. This is resolved. Sodium 142 yesterday SIRS; Metabolic acidosis secondary to acute renal failure DVT prophylaxis; with Lovenox, FULL CODE STATUS -- History Interval history: Patient with acute respiratory failure, still intubated, Fever Hospitalist Physical - Physical exam Narrative exam: Gen: Not in acute distress,obese HEENT: intubated orally, on vent Neck: No JVD Lungs: Bilateral rhonchi, no crackles. Heart:S1 and S2 reg, no murmurs,rubs or gallop Abd: soft, Non-tender, non-distended, Normal bowel sounds Ext: No edema, no clubbing , no cyanosis Neuro: sedated, intubated, responsive,follows commands - Constitutional Vitals: Temp Pulse Resp BP Pulse Ox 98.7 F 96 H 36 H 168/63 98 04/01/16 08:00 04/01/16 09:00 04/01/16 09:00 04/01/16 08:00 04/01/16 08:00 Results - Labs CBC & Chem 7: 03/31/16 06:30 03/31/16 06:30 Labs: Laboratory Last Values WBC 9.5 K/mm3 (4.5-11.0) 03/31/16 06:30 RBC 2.38 M/mm3 (3.65-5.03) L 03/31/16 06:30 Hgb 7.7 gm/dl (10.1-14.3) L 03/31/16 06:30 Hct 23.0 % (30.3-42.9) L 03/31/16 06:30 MCV 96 fl (79-97) 03/31/16 06:30 MCH 32 pg (28-32) 03/31/16 06:30 MCHC 33 % (30-34) 03/31/16 06:30 RDW 14.6 % (13.2-15.2) 03/31/16 06:30 Plt Count 157 K/mm3 (140-440) 03/31/16 06:30 Lymph % (Auto) 22.9 % (13.4-35.0) 03/27/16 06:00 [place] % (Auto) 12.5 % (0.0-7.3) H 03/27/16 06:00 Eos % (Auto) 1.1 % (0.0-4.3) 03/27/16 06:00 Baso % (Auto) 0.4 % (0.0-1.8) 03/27/16 06:00 Lymph # 1.4 K/mm3 (1.2-5.4) 03/27/16 06:00 [place] # 0.8 K/mm3 (0.0-0.8) 03/27/16 06:00 Eos # 0.1 K/mm3 (0.0-0.4) 03/27/16 06:00 Baso # 0.0 K/mm3 (0.0-0.1) 03/27/16 06:00 Add Manual Diff Complete 03/25/16 04:30 Total Counted 100 03/25/16 04:30 Seg Neutrophils % 63.1 % (40.0-70.0) 03/27/16 06:00 Seg Neuts % (Manual) 64.0 % (40.0-70.0) 03/25/16 04:30 Band Neutrophils % 18.0 % 03/25/16 04:30 Lymphocytes % (Manual) 10.0 % (13.4-35.0) L 03/25/16 04:30 Reactive Lymphs % (Man) 0 % 03/25/16 04:30 Monocytes % (Manual) 7.0 % (0.0-7.3) 03/25/16 04:30 Eosinophils % (Manual) 1.0 % (0.0-4.3) 03/25/16 04:30 Basophils % (Manual) 0 % (0.0-1.8) 03/25/16 04:30 Metamyelocytes % 0 % 03/25/16 04:30 Myelocytes % 0 % 03/25/16 04:30 Promyelocytes % 0 % 03/25/16 04:30 Blast Cells % 0 % 03/25/16 04:30 Nucleated RBC % Not Reportable 03/25/16 04:30 Seg Neutrophils # 3.9 K/mm3 (1.8-7.7) 03/27/16 06:00 Seg Neutrophils # Man 4.7 K/mm3 (1.8-7.7) 03/25/16 04:30 Band Neutrophils # 1.3 K/mm3 03/25/16 04:30 Lymphocytes # (Manual) 0.7 K/mm3 (1.2-5.4) L 03/25/16 04:30 Abs React Lymphs (Man) 0.0 K/mm3 03/25/16 04:30 Monocytes # (Manual) 0.5 K/mm3 (0.0-0.8) 03/25/16 04:30 Eosinophils # (Manual) 0.1 K/mm3 (0.0-0.4) 03/25/16 04:30 Basophils # (Manual) 0.0 K/mm3 (0.0-0.1) 03/25/16 04:30 Metamyelocytes # 0.0 K/mm3 03/25/16 04:30 Myelocytes # 0.0 K/mm3 03/25/16 04:30 Promyelocytes # 0.0 K/mm3 03/25/16 04:30 Blast Cells # 0.0 K/mm3 03/25/16 04:30 WBC Morphology Not Reportable 03/25/16 04:30 Hypersegmented Neuts Not Reportable 03/25/16 04:30 Hyposegmented Neuts Not Reportable 03/25/16 04:30 Hypogranular Neuts Not Reportable 03/25/16 04:30 Smudge Cells Not Reportable 03/25/16 04:30 Toxic Granulation Not Reportable 03/25/16 04:30 Toxic Vacuolation Not Reportable 03/25/16 04:30 Dohle Bodies Not Reportable 03/25/16 04:30 Pelger-Huet Anomaly Not Reportable 03/25/16 04:30 Sameer Rods Not Reportable 03/25/16 04:30 Platelet Estimate Appears decreased 03/25/16 04:30 Clumped Platelets Not Reportable 03/25/16 04:30 Plt Clumps, EDTA Not Reportable 03/25/16 04:30 Large Platelets Not Reportable 03/25/16 04:30 Giant Platelets Not Reportable 03/25/16 04:30 Platelet Satelliting Not Reportable 03/25/16 04:30 Plt Morphology Comment Not Reportable 03/25/16 04:30 RBC Morphology Not Reportable 03/25/16 04:30 Dimorphic RBCs Not Reportable 03/25/16 04:30 Polychromasia Not Reportable 03/25/16 04:30 Hypochromasia Not Reportable 03/25/16 04:30 Poikilocytosis Few 03/25/16 04:30 Anisocytosis Not Reportable 03/25/16 04:30 Microcytosis Not Reportable 03/25/16 04:30 Macrocytosis Not Reportable 03/25/16 04:30 Spherocytes Not Reportable 03/25/16 04:30 Pappenheimer Bodies Not Reportable 03/25/16 04:30 Sickle Cells Not Reportable 03/25/16 04:30 Target Cells Not Reportable 03/25/16 04:30 Tear Drop Cells Not Reportable 03/25/16 04:30 Ovalocytes Few 03/25/16 04:30 Helmet Cells Not Reportable 03/25/16 04:30 [place] Bodies Not Reportable 03/25/16 04:30 [place] Rings Not Reportable 03/25/16 04:30 Ryan Cells Not Reportable 03/25/16 04:30 Bite Cells Not Reportable 03/25/16 04:30 Crenated Cell Not Reportable 03/25/16 04:30 Elliptocytes Not Reportable 03/25/16 04:30 Acanthocytes (Spur) Not Reportable 03/25/16 04:30 Rouleaux Not Reportable 03/25/16 04:30 Hemoglobin C Crystals Not Reportable 03/25/16 04:30 Schistocytes Not Reportable 03/25/16 04:30 Malaria parasites Not Reportable 03/25/16 04:30 Konstantin Bodies Not Reportable 03/25/16 04:30 Hem Pathologist Commnt No 03/25/16 04:30 PT 16.8 Sec. (12.2-14.9) H 03/23/16 18:56 INR 1.37 (0.87-1.13) H 03/23/16 18:56 APTT 28.7 Sec. (24.2-36.6) 03/23/16 18:56 POC ABG pH 7.465 (7.35-7.45) H 04/01/16 05:24 POC ABG pCO2 33.2 (35-45) L 04/01/16 05:24 POC ABG pO2 92 (80-105) 04/01/16 05:24 POC ABG HCO3 23.9 04/01/16 05:24 POC ABG Total CO2 25 04/01/16 05:24 POC ABG O2 Sat 98 04/01/16 05:24 POC ABG Base Excess 0 04/01/16 05:24 FiO2 35 % 04/01/16 05:24 Sodium 142 mmol/L (137-145) 03/31/16 06:30 Potassium 3.8 mmol/L (3.6-5.0) 03/31/16 06:30 Chloride 105.9 mmol/L (98-107) 03/31/16 06:30 Carbon Dioxide 25 mmol/L (22-30) 03/31/16 06:30 Anion Gap 15 mmol/L 03/31/16 06:30 BUN 14 mg/dL (7-17) 03/31/16 06:30 Creatinine 0.9 mg/dL (0.7-1.2) 03/31/16 06:30 Estimated GFR > 60 ml/min 03/31/16 06:30 BUN/Creatinine Ratio 15.55 % 03/31/16 06:30 Glucose 193 mg/dL (65-100) H 03/31/16 06:30 POC Glucose 218 (70-105) H 04/01/16 05:54 Lactic Acid 1.4 mmol/L (0.7-2.0) 03/23/16 20:10 Calcium 8.1 mg/dL (8.4-10.2) L 03/31/16 06:30 Phosphorus 3.8 mg/dL (2.5-4.5) 03/25/16 04:30 Magnesium 2.2 mg/dL (1.7-2.3) 03/28/16 05:30 Total Bilirubin 0.2 mg/dL (0.1-1.2) 03/25/16 04:30 Direct Bilirubin < 0.2 mg/dL (0-0.2) 03/25/16 04:30 Indirect Bilirubin 0.0 mg/dL 03/25/16 04:30 AST 20 units/L (5-40) 03/25/16 04:30 ALT 12 units/L (7-56) 03/25/16 04:30 Alkaline Phosphatase 86 units/L (35-129) 03/25/16 04:30 Total Protein 5.0 g/dL (6.3-8.2) L D 03/25/16 04:30 Albumin 2.4 g/dL (3.9-5) L 03/25/16 04:30 Albumin/Globulin Ratio 0.9 % 03/25/16 04:30 TSH 0.264 mlU/mL (0.270-4.200) L 03/23/16 17:33 Urine Color Yellow (Yellow) 03/23/16 20:13 Urine Turbidity Slightly-cloudy (Clear) 03/23/16 20:13 Urine pH 5.0 (5.0-7.0) 03/23/16 20:13 Ur Specific [place] 1.016 (1.003-1.030) 03/23/16 20:13 Urine Protein 100 mg/dl mg/dL (Negative) 03/23/16 20:13 Urine Glucose (UA) Neg mg/dL (Negative) 03/23/16 20:13 Urine Ketones Neg mg/dL (Negative) 03/23/16 20:13 Urine Blood Mod (Negative) 03/23/16 20:13 Urine Nitrite Neg (Negative) 03/23/16 20:13 Urine Bilirubin Neg (Negative) 03/23/16 20:13 Urine Urobilinogen < 2.0 mg/dL (<2.0) 03/23/16 20:13 Ur Leukocyte Esterase Neg (Negative) 03/23/16 20:13 Urine WBC (Auto) < 1.0 /HPF (0.0-6.0) 03/23/16 20:13 Urine RBC (Auto) < 1.0 /HPF (0.0-6.0) 03/23/16 20:13 U Epithel Cells (Auto) < 1.0 /HPF (0-13.0) 03/23/16 20:13 Urine Mucus Few /HPF 03/23/16 20:13 Salicylates 0.6 mg/dL (2.8-20.0) L 03/23/16 17:33 Urine Opiates Screen Presumptive positive 03/23/16 20:13 Urine Methadone Screen Presumptive negative 03/23/16 20:13 Acetaminophen < 15.0 ug/mL (10.0-30.0) 03/23/16 17:33 Ur Barbiturates Screen Presumptive negative 03/23/16 20:13 Ur Phencyclidine Scrn Presumptive negative 03/23/16 20:13 Ur Amphetamines Screen Presumptive negative 03/23/16 20:13 U Benzodiazepines Scrn Presumptive negative 03/23/16 20:13 Urine Cocaine Screen Presumptive negative 03/23/16 20:13 U Marijuana (THC) Screen Presumptive negative 03/23/16 20:13 Drugs of Abuse Note Disclamer 03/23/16 20:13 Plasma/Serum Alcohol < 0.01 gm% (0-0.07) 03/23/16 17:45 Blood Type B NEGATIVE 03/29/16 12:30 Antibody Screen Negative 03/29/16 12:30 Crossmatch See Detail 03/29/16 12:30
[2016-04-01] MEDS ORDERED: LASIX IV ONE (10:32)
--- NOTE | 2016-04-01 10:36 | Progress Note ---
Assessment and Plan - Patient Problems (1) Respiratory failure Current Visit: Yes Status: Acute Qualifiers: Chronicity: acute Respiratory failure complication: hypoxia Qualified Code(s): J96.01 - Acute respiratory failure with hypoxia (2) Metabolic acidosis Current Visit: Yes Status: Acute (3) Accidental drug overdose Current Visit: No Status: Acute (4) Acute renal failure Current Visit: Yes Status: Acute Qualifiers: Acute renal failure type: unspecified Qualified Code(s): N17.9 - Acute kidney failure, unspecified (5) Altered mental status Current Visit: Yes Status: Acute Qualifiers: Altered mental status type: unspecified Qualified Code(s): R41.82 - Altered mental status, unspecified Subjective Date of service: 04/01/16 Principal diagnosis: Acute Hypoxemic Respiratory Failure Interval history: This is 65 year old white female admitted with drug overdose, altered mental status and hypotension.Patient intubated and placed on mechanical ventilation.Patient has history of hypertension, chronic kidney disease , DM and COPD.Patient has history of smoking and chronic narcotic drug use for chronic pain. Current smoking status not known. No history of alcohol. Allergic to sulfa.Drug screen positive for Opiates. 03/26/16 Patient less agitated. Still on mechanical ventilation. RT attempted PSV today 02/12- very low lung volumes though she was more awake and alert. High grade fevers overnight- cultures were sent . Currently on renally dosed Zosyn, metabolic acidosis improving on bicarbonate infusion. On heparin and famotidine for VTE/stress ulcer prophylaxis Today 03/31/2016 Less agitation. Tried on SBT this morning had episodes of desaturations and was placed back on full support. Discussed with RT just now so we can try another SBT. Family and friends at the bedside. otherwise no overnight events reported. Today 04/01/2016 Tolerating SBT, awake, alert. Plan to get weaning parameters, if acceptable plan to extubate Objective Vital Signs - 12hr 03/31/16 03/31/16 03/31/16 22:34 22:37 23:00 Temperature Pulse Rate 67 86 70 Pulse Rate [ Anterior Bilateral Throughout] Pulse Rate [ From Monitor] Respiratory 17 20 Rate Respiratory Rate [Anterior Bilateral Throughout] Blood Pressure 146/61 146/61 141/52 O2 Sat by Pulse 98 96 Oximetry 03/31/16 04/01/16 04/01/16 23:46 00:00 01:00 Temperature 99.8 F H Pulse Rate 66 66 63 Pulse Rate [ Anterior Bilateral Throughout] Pulse Rate [ 89 From Monitor] Respiratory 23 25 H Rate Respiratory Rate [Anterior Bilateral Throughout] Blood Pressure 141/52 157/61 155/52 O2 Sat by Pulse 99 98 97 Oximetry 04/01/16 04/01/16 04/01/16 02:00 03:00 04:00 Temperature 99.9 F H Pulse Rate 69 57 L 58 L Pulse Rate [ Anterior Bilateral Throughout] Pulse Rate [ 81 From Monitor] Respiratory 20 21 18 Rate Respiratory Rate [Anterior Bilateral Throughout] Blood Pressure 149/52 161/55 155/63 O2 Sat by Pulse 97 97 99 Oximetry 04/01/16 04/01/16 04/01/16 04:21 05:00 05:36 Temperature Pulse Rate 64 55 L 88 Pulse Rate [ Anterior Bilateral Throughout] Pulse Rate [ From Monitor] Respiratory 23 34 H Rate Respiratory Rate [Anterior Bilateral Throughout] Blood Pressure 155/63 154/52 154/52 O2 Sat by Pulse 98 97 98 Oximetry 04/01/16 04/01/16 04/01/16 06:00 06:54 07:00 Temperature Pulse Rate 76 91 H 81 Pulse Rate [ Anterior Bilateral Throughout] Pulse Rate [ From Monitor] Respiratory 35 H 35 H Rate Respiratory Rate [Anterior Bilateral Throughout] Blood Pressure 154/64 154/64 153/67 O2 Sat by Pulse 95 96 Oximetry 04/01/16 04/01/16 04/01/16 07:40 08:00 08:50 Temperature 98.7 F Pulse Rate 81 75 Pulse Rate [ 88 Anterior Bilateral Throughout] Pulse Rate [ From Monitor] Respiratory 27 H 34 H Rate Respiratory 34 H Rate [Anterior Bilateral Throughout] Blood Pressure 154/64 168/63 O2 Sat by Pulse 98 98 Oximetry 04/01/16 09:00 Temperature Pulse Rate Pulse Rate [ 96 H Anterior Bilateral Throughout] Pulse Rate [ From Monitor] Respiratory Rate Respiratory 36 H Rate [Anterior Bilateral Throughout] Blood Pressure O2 Sat by Pulse Oximetry Constitutional: no acute distress, lethargic, asleep, other (On mechanical ventilation) Eyes: non-icteric ENT: oropharynx moist Neck: supple, no JVD Ascultation: Bilateral: diminished breath sounds, rhonchi (coarse breath sounds) Cardiovascular: regular rate and rhythm Gastrointestinal: normoactive bowel sounds, soft, non-tender, non-distended Integumentary: normal Extremities: no cyanosis, no edema Neurologic: non-focal exam, unable to assess Psychiatric: other (Can not assess at this time.) CBC and BMP: 03/31/16 06:30 03/31/16 06:30 ABG, PT/INR, D-dimer: ABG POC ABG pH 7.465 (7.35-7.45) H 04/01/16 05:24 POC ABG pCO2 33.2 (35-45) L 04/01/16 05:24 POC ABG pO2 92 (80-105) 04/01/16 05:24 POC ABG HCO3 23.9 04/01/16 05:24 POC ABG Total CO2 25 04/01/16 05:24 POC ABG O2 Sat 98 04/01/16 05:24 PT/INR, D-dimer PT 16.8 Sec. (12.2-14.9) H 03/23/16 18:56 INR 1.37 (0.87-1.13) H 03/23/16 18:56 Abnormal lab findings: Abnormal Labs 03/24/16 03/24/16 03/24/16 00:10 05:04 05:12 RBC 2.42 L Hgb 7.8 L Hct 23.4 L MCV 99 H MCH RDW Plt Count 139 L [place] % (Auto) 10.4 H Lymph # 0.9 L Seg Neutrophils % 71.0 H Lymphocytes % (Manual) Lymphocytes # (Manual) POC ABG pH 7.279 L POC ABG pCO2 33.6 L POC ABG pO2 112 H Sodium Chloride Carbon Dioxide BUN Creatinine Glucose POC Glucose 144 H Calcium Total Protein Albumin Crossmatch 03/24/16 03/24/16 03/25/16 05:12 05:50 04:30 RBC 2.55 L Hgb 8.0 L Hct 25.0 L MCV 98 H MCH RDW 15.6 H Plt Count [place] % (Auto) Lymph # Seg Neutrophils % Lymphocytes % (Manual) 10.0 L Lymphocytes # (Manual) 0.7 L POC ABG pH POC ABG pCO2 POC ABG pO2 Sodium Chloride 112.3 H Carbon Dioxide 17 L BUN 51 H Creatinine 2.3 H Glucose POC Glucose 107 H Calcium 7.0 L Total Protein Albumin Crossmatch 03/25/16 03/25/16 03/25/16 04:30 04:58 10:17 RBC Hgb Hct MCV MCH RDW Plt Count [place] % (Auto) Lymph # Seg Neutrophils % Lymphocytes % (Manual) Lymphocytes # (Manual) POC ABG pH 7.285 L 7.261 L POC ABG pCO2 27.2 L 28.6 L POC ABG pO2 112 H Sodium 148 H Chloride 116.9 H Carbon Dioxide 14 L BUN 38 H Creatinine 1.7 H Glucose POC Glucose Calcium 7.1 L Total Protein 5.0 L D Albumin 2.4 L Crossmatch 03/26/16 03/26/16 03/26/16 05:30 05:30 05:32 RBC 2.37 L Hgb 7.7 L Hct 23.0 L MCV MCH 33 H RDW Plt Count 134 L [place] % (Auto) 15.2 H Lymph # 0.9 L Seg Neutrophils % Lymphocytes % (Manual) Lymphocytes # (Manual) POC ABG pH POC ABG pCO2 31.8 L POC ABG pO2 Sodium 147 H Chloride 112.3 H Carbon Dioxide 21 L D BUN 20 H Creatinine 1.3 H Glucose 121 H POC Glucose Calcium 7.6 L Total Protein Albumin Crossmatch 03/26/16 03/26/16 03/26/16 06:05 11:46 17:24 RBC Hgb Hct MCV MCH RDW Plt Count [place] % (Auto) Lymph # Seg Neutrophils % Lymphocytes % (Manual) Lymphocytes # (Manual) POC ABG pH POC ABG pCO2 POC ABG pO2 Sodium Chloride Carbon Dioxide BUN Creatinine Glucose POC Glucose 115 H 146 H 134 H Calcium Total Protein Albumin Crossmatch 03/26/16 03/27/16 03/27/16 23:41 06:00 06:00 RBC 2.46 L Hgb 7.8 L Hct 23.7 L MCV MCH RDW Plt Count 138 L [place] % (Auto) 12.5 H Lymph # Seg Neutrophils % Lymphocytes % (Manual) Lymphocytes # (Manual) POC ABG pH POC ABG pCO2 POC ABG pO2 Sodium Chloride Carbon Dioxide BUN Creatinine Glucose POC Glucose 155 H Calcium 7.6 L Total Protein Albumin Crossmatch 03/27/16 03/27/16 03/27/16 11:25 17:37 18:01 RBC Hgb Hct MCV MCH RDW Plt Count [place] % (Auto) Lymph # Seg Neutrophils % Lymphocytes % (Manual) Lymphocytes # (Manual) POC ABG pH POC ABG pCO2 POC ABG pO2 Sodium Chloride Carbon Dioxide BUN Creatinine Glucose POC Glucose 163 H 173 H 171 H Calcium Total Protein Albumin Crossmatch 03/27/16 03/28/16 03/28/16 23:51 04:53 05:47 RBC Hgb Hct MCV MCH RDW Plt Count [place] % (Auto) Lymph # Seg Neutrophils % Lymphocytes % (Manual) Lymphocytes # (Manual) POC ABG pH POC ABG pCO2 34.9 L POC ABG pO2 Sodium Chloride Carbon Dioxide BUN Creatinine Glucose POC Glucose 136 H 164 H Calcium Total Protein Albumin Crossmatch 03/28/16 03/28/16 03/29/16 11:54 17:33 00:11 RBC Hgb Hct MCV MCH RDW Plt Count [place] % (Auto) Lymph # Seg Neutrophils % Lymphocytes % (Manual) Lymphocytes # (Manual) POC ABG pH POC ABG pCO2 POC ABG pO2 Sodium Chloride Carbon Dioxide BUN Creatinine Glucose POC Glucose 129 H 148 H 154 H Calcium Total Protein Albumin Crossmatch 03/29/16 03/29/16 03/29/16 04:43 05:00 05:00 RBC 2.07 L Hgb 6.7 L Hct 20.2 L MCV MCH RDW Plt Count 121 L [place] % (Auto) Lymph # Seg Neutrophils % Lymphocytes % (Manual) Lymphocytes # (Manual) POC ABG pH 7.471 H POC ABG pCO2 POC ABG pO2 Sodium 149 H Chloride 111.2 H Carbon Dioxide BUN Creatinine 1.3 H Glucose 110 H POC Glucose Calcium 7.6 L Total Protein Albumin Crossmatch 03/29/16 03/29/16 03/29/16 05:35 09:30 11:40 RBC Hgb 6.5 L Hct 20.0 L MCV MCH RDW Plt Count [place] % (Auto) Lymph # Seg Neutrophils % Lymphocytes % (Manual) Lymphocytes # (Manual) POC ABG pH POC ABG pCO2 POC ABG pO2 Sodium Chloride Carbon Dioxide BUN Creatinine Glucose POC Glucose 108 H 141 H Calcium Total Protein Albumin Crossmatch 03/29/16 03/29/16 03/30/16 12:30 17:45 05:15 RBC 2.41 L Hgb 7.7 L Hct 23.1 L MCV MCH RDW 15.3 H Plt Count 131 L [place] % (Auto) Lymph # Seg Neutrophils % Lymphocytes % (Manual) Lymphocytes # (Manual) POC ABG pH POC ABG pCO2 POC ABG pO2 Sodium Chloride Carbon Dioxide BUN Creatinine Glucose POC Glucose 200 H Calcium Total Protein Albumin Crossmatch See Detail 03/30/16 03/30/16 03/30/16 05:15 05:56 11:46 RBC Hgb Hct MCV MCH RDW Plt Count [place] % (Auto) Lymph # Seg Neutrophils % Lymphocytes % (Manual) Lymphocytes # (Manual) POC ABG pH POC ABG pCO2 POC ABG pO2 Sodium Chloride Carbon Dioxide BUN Creatinine Glucose 144 H POC Glucose 141 H 167 H Calcium 7.6 L Total Protein Albumin Crossmatch 03/30/16 03/30/16 03/31/16 18:17 23:37 05:25 RBC Hgb Hct MCV MCH RDW Plt Count [place] % (Auto) Lymph # Seg Neutrophils % Lymphocytes % (Manual) Lymphocytes # (Manual) POC ABG pH POC ABG pCO2 POC ABG pO2 Sodium Chloride Carbon Dioxide BUN Creatinine Glucose POC Glucose 190 H 266 H 222 H Calcium Total Protein Albumin Crossmatch 03/31/16 03/31/16 03/31/16 06:30 06:30 12:05 RBC 2.38 L Hgb 7.7 L Hct 23.0 L MCV MCH RDW Plt Count [place] % (Auto) Lymph # Seg Neutrophils % Lymphocytes % (Manual) Lymphocytes # (Manual) POC ABG pH POC ABG pCO2 POC ABG pO2 Sodium Chloride Carbon Dioxide BUN Creatinine Glucose 193 H POC Glucose 204 H Calcium 8.1 L Total Protein Albumin Crossmatch 03/31/16 03/31/16 04/01/16 18:10 23:42 05:24 RBC Hgb Hct MCV MCH RDW Plt Count [place] % (Auto) Lymph # Seg Neutrophils % Lymphocytes % (Manual) Lymphocytes # (Manual) POC ABG pH 7.465 H POC ABG pCO2 33.2 L POC ABG pO2 Sodium Chloride Carbon Dioxide BUN Creatinine Glucose POC Glucose 181 H 203 H Calcium Total Protein Albumin Crossmatch 04/01/16 05:54 RBC Hgb Hct MCV MCH RDW Plt Count [place] % (Auto) Lymph # Seg Neutrophils % Lymphocytes % (Manual) Lymphocytes # (Manual) POC ABG pH POC ABG pCO2 POC ABG pO2 Sodium Chloride Carbon Dioxide BUN Creatinine Glucose POC Glucose 218 H Calcium Total Protein Albumin Crossmatch
[2016-04-01] MEDS: DIFLUCAN/NS 100 MG/50 ML 50 ML IV SCH (11:08)
[2016-04-01] MEDS: XALATAN 0.005% OU SCH (22:26)
[2016-04-02] MEDS: NOVOLOG SUB-Q SCH ×4 (00:30→18:37)
[2016-04-02 05:08] LABS: Hematocrit 24.7 % (30.3-42.9); Hemoglobin 8.2 gm/dl (10.1-14.3); Mean Corpuscular HGB Conc 33 % (30-34); Mean Corpuscular Hemoglobin 32 pg (28-32); Mean Corpuscular Volume 95 fl (79-97); Platelet Count 242 K/mm3 (140-440); Red Blood Count 2.59 M/mm3 (3.65-5.03); Red Cell Distribution Width 14.1 % (13.2-15.2)
[2016-04-02 05:18] LABS: Anion Gap 18 mmol/L; Blood Urea Nitrogen 12 mg/dL (7-17); Calcium 8.4 mg/dL (8.4-10.2); Carbon Dioxide 25 mmol/L (22-30); Chloride 101.9 mmol/L (98-107); Glucose 206 mg/dL (65-100); Potassium 3.4 mmol/L (3.6-5.0); Sodium 141 mmol/L (137-145)
[2016-04-02] MEDS: CATAPRES PO SCH ×3 (06:17→21:23)
[2016-04-02] MEDS: HALDOL IV PRN (06:17)
[2016-04-02] MEDS: HEPARIN SUB-Q SCH ×3 (06:18→21:24)
[2016-04-02] MEDS: DUONEB 0.5 MG-3 MG/3 ML SOLN IH SCH ×3 (07:59→20:29)
[2016-04-02] MEDS: NEURONTIN PO SCH ×3 (08:44→20:56)
--- NOTE | 2016-04-02 09:20 | Progress Note ---
Assessment and Plan Assessment and plan: Acute respiratory failure due to COPD exacerbation. She is still orally intubated on ventilatory support nebulizers, IV steroids,Pulm following. failed multiple weaning attempts. --Acute exacerbation of COPD Continue oxygen support, nebulizers, IV steroids IV antibiotics inhalation steroids and supportive care Anemia. Hgb 8.2 today. She is s/p 1 Unit PRBC transfusion. Stool occult blood negative x 2 Acute on chronic kidney disease, resolved. improving Probably secondary to ATN. IV hydration. Creatinine 0.8 today. Encephalopathy /Opiate overdose; accidental. Hypotension/shock,Improved, off pressors Hypernatremia. This is resolved. SIRS; Metabolic acidosis secondary to acute renal failure DVT prophylaxis; with Lovenox, FULL CODE STATUS -- History Interval history: Patient with acute respiratory failure, still intubated, Fever Hospitalist Physical - Physical exam Narrative exam: Gen: Not in acute distress,obese HEENT: intubated orally, on vent Neck: No JVD Lungs: Bilateral rhonchi, no crackles. Heart:S1 and S2 reg, no murmurs,rubs or gallop Abd: soft, Non-tender, non-distended, Normal bowel sounds Ext: No edema, no clubbing , no cyanosis Neuro: sedated, intubated, responsive,follows commands - Constitutional Vitals: Temp Pulse Resp BP Pulse Ox 98.8 F 84 25 H 168/60 97 04/02/16 08:00 04/02/16 08:15 04/02/16 08:15 04/02/16 08:15 04/02/16 08:15 General appearance: Present: no acute distress, well-nourished, obese, other ( intubated on ventilatory support) Results - Labs CBC & Chem 7: 04/02/16 04:37 04/02/16 04:37 Labs: Laboratory Last Values WBC 8.0 K/mm3 (4.5-11.0) 04/02/16 04:37 RBC 2.59 M/mm3 (3.65-5.03) L 04/02/16 04:37 Hgb 8.2 gm/dl (10.1-14.3) L 04/02/16 04:37 Hct 24.7 % (30.3-42.9) L 04/02/16 04:37 MCV 95 fl (79-97) 04/02/16 04:37 MCH 32 pg (28-32) 04/02/16 04:37 MCHC 33 % (30-34) 04/02/16 04:37 RDW 14.1 % (13.2-15.2) 04/02/16 04:37 Plt Count 242 K/mm3 (140-440) 04/02/16 04:37 Lymph % (Auto) 22.9 % (13.4-35.0) 03/27/16 06:00 [place] % (Auto) 12.5 % (0.0-7.3) H 03/27/16 06:00 Eos % (Auto) 1.1 % (0.0-4.3) 03/27/16 06:00 Baso % (Auto) 0.4 % (0.0-1.8) 03/27/16 06:00 Lymph # 1.4 K/mm3 (1.2-5.4) 03/27/16 06:00 [place] # 0.8 K/mm3 (0.0-0.8) 03/27/16 06:00 Eos # 0.1 K/mm3 (0.0-0.4) 03/27/16 06:00 Baso # 0.0 K/mm3 (0.0-0.1) 03/27/16 06:00 Add Manual Diff Complete 03/25/16 04:30 Total Counted 100 03/25/16 04:30 Seg Neutrophils % 63.1 % (40.0-70.0) 03/27/16 06:00 Seg Neuts % (Manual) 64.0 % (40.0-70.0) 03/25/16 04:30 Band Neutrophils % 18.0 % 03/25/16 04:30 Lymphocytes % (Manual) 10.0 % (13.4-35.0) L 03/25/16 04:30 Reactive Lymphs % (Man) 0 % 03/25/16 04:30 Monocytes % (Manual) 7.0 % (0.0-7.3) 03/25/16 04:30 Eosinophils % (Manual) 1.0 % (0.0-4.3) 03/25/16 04:30 Basophils % (Manual) 0 % (0.0-1.8) 03/25/16 04:30 Metamyelocytes % 0 % 03/25/16 04:30 Myelocytes % 0 % 03/25/16 04:30 Promyelocytes % 0 % 03/25/16 04:30 Blast Cells % 0 % 03/25/16 04:30 Nucleated RBC % Not Reportable 03/25/16 04:30 Seg Neutrophils # 3.9 K/mm3 (1.8-7.7) 03/27/16 06:00 Seg Neutrophils # Man 4.7 K/mm3 (1.8-7.7) 03/25/16 04:30 Band Neutrophils # 1.3 K/mm3 03/25/16 04:30 Lymphocytes # (Manual) 0.7 K/mm3 (1.2-5.4) L 03/25/16 04:30 Abs React Lymphs (Man) 0.0 K/mm3 03/25/16 04:30 Monocytes # (Manual) 0.5 K/mm3 (0.0-0.8) 03/25/16 04:30 Eosinophils # (Manual) 0.1 K/mm3 (0.0-0.4) 03/25/16 04:30 Basophils # (Manual) 0.0 K/mm3 (0.0-0.1) 03/25/16 04:30 Metamyelocytes # 0.0 K/mm3 03/25/16 04:30 Myelocytes # 0.0 K/mm3 03/25/16 04:30 Promyelocytes # 0.0 K/mm3 03/25/16 04:30 Blast Cells # 0.0 K/mm3 03/25/16 04:30 WBC Morphology Not Reportable 03/25/16 04:30 Hypersegmented Neuts Not Reportable 03/25/16 04:30 Hyposegmented Neuts Not Reportable 03/25/16 04:30 Hypogranular Neuts Not Reportable 03/25/16 04:30 Smudge Cells Not Reportable 03/25/16 04:30 Toxic Granulation Not Reportable 03/25/16 04:30 Toxic Vacuolation Not Reportable 03/25/16 04:30 Dohle Bodies Not Reportable 03/25/16 04:30 Pelger-Huet Anomaly Not Reportable 03/25/16 04:30 Sameer Rods Not Reportable 03/25/16 04:30 Platelet Estimate Appears decreased 03/25/16 04:30 Clumped Platelets Not Reportable 03/25/16 04:30 Plt Clumps, EDTA Not Reportable 03/25/16 04:30 Large Platelets Not Reportable 03/25/16 04:30 Giant Platelets Not Reportable 03/25/16 04:30 Platelet Satelliting Not Reportable 03/25/16 04:30 Plt Morphology Comment Not Reportable 03/25/16 04:30 RBC Morphology Not Reportable 03/25/16 04:30 Dimorphic RBCs Not Reportable 03/25/16 04:30 Polychromasia Not Reportable 03/25/16 04:30 Hypochromasia Not Reportable 03/25/16 04:30 Poikilocytosis Few 03/25/16 04:30 Anisocytosis Not Reportable 03/25/16 04:30 Microcytosis Not Reportable 03/25/16 04:30 Macrocytosis Not Reportable 03/25/16 04:30 Spherocytes Not Reportable 03/25/16 04:30 Pappenheimer Bodies Not Reportable 03/25/16 04:30 Sickle Cells Not Reportable 03/25/16 04:30 Target Cells Not Reportable 03/25/16 04:30 Tear Drop Cells Not Reportable 03/25/16 04:30 Ovalocytes Few 03/25/16 04:30 Helmet Cells Not Reportable 03/25/16 04:30 [place] Bodies Not Reportable 03/25/16 04:30 [place] Rings Not Reportable 03/25/16 04:30 Ryan Cells Not Reportable 03/25/16 04:30 Bite Cells Not Reportable 03/25/16 04:30 Crenated Cell Not Reportable 03/25/16 04:30 Elliptocytes Not Reportable 03/25/16 04:30 Acanthocytes (Spur) Not Reportable 03/25/16 04:30 Rouleaux Not Reportable 03/25/16 04:30 Hemoglobin C Crystals Not Reportable 03/25/16 04:30 Schistocytes Not Reportable 03/25/16 04:30 Malaria parasites Not Reportable 03/25/16 04:30 Konstantin Bodies Not Reportable 03/25/16 04:30 Hem Pathologist Commnt No 03/25/16 04:30 PT 16.8 Sec. (12.2-14.9) H 03/23/16 18:56 INR 1.37 (0.87-1.13) H 03/23/16 18:56 APTT 28.7 Sec. (24.2-36.6) 03/23/16 18:56 POC ABG pH 7.465 (7.35-7.45) H 04/01/16 05:24 POC ABG pCO2 33.2 (35-45) L 04/01/16 05:24 POC ABG pO2 92 (80-105) 04/01/16 05:24 POC ABG HCO3 23.9 04/01/16 05:24 POC ABG Total CO2 25 04/01/16 05:24 POC ABG O2 Sat 98 04/01/16 05:24 POC ABG Base Excess 0 04/01/16 05:24 FiO2 35 % 04/01/16 05:24 Sodium 142 mmol/L (137-145) 03/31/16 06:30 Potassium 3.8 mmol/L (3.6-5.0) 03/31/16 06:30 Chloride 105.9 mmol/L (98-107) 03/31/16 06:30 Carbon Dioxide 25 mmol/L (22-30) 04/02/16 04:37 Anion Gap 15 mmol/L 03/31/16 06:30 BUN 12 mg/dL (7-17) 04/02/16 04:37 Creatinine 0.8 mg/dL (0.7-1.2) 04/02/16 04:37 Estimated GFR > 60 ml/min 04/02/16 04:37 BUN/Creatinine Ratio 15.00 % 04/02/16 04:37 Glucose 206 mg/dL (65-100) H 04/02/16 04:37 POC Glucose 201 (70-105) H 04/02/16 00:38 Lactic Acid 1.4 mmol/L (0.7-2.0) 03/23/16 20:10 Calcium 8.4 mg/dL (8.4-10.2) 04/02/16 04:37 Phosphorus 3.8 mg/dL (2.5-4.5) 03/25/16 04:30 Magnesium 2.2 mg/dL (1.7-2.3) 03/28/16 05:30 Total Bilirubin 0.2 mg/dL (0.1-1.2) 03/25/16 04:30 Direct Bilirubin < 0.2 mg/dL (0-0.2) 03/25/16 04:30 Indirect Bilirubin 0.0 mg/dL 03/25/16 04:30 AST 20 units/L (5-40) 03/25/16 04:30 ALT 12 units/L (7-56) 03/25/16 04:30 Alkaline Phosphatase 86 units/L (35-129) 03/25/16 04:30 Total Protein 5.0 g/dL (6.3-8.2) L D 03/25/16 04:30 Albumin 2.4 g/dL (3.9-5) L 03/25/16 04:30 Albumin/Globulin Ratio 0.9 % 03/25/16 04:30 TSH 0.264 mlU/mL (0.270-4.200) L 03/23/16 17:33 Urine Color Yellow (Yellow) 03/23/16 20:13 Urine Turbidity Slightly-cloudy (Clear) 03/23/16 20:13 Urine pH 5.0 (5.0-7.0) 03/23/16 20:13 Ur Specific [place] 1.016 (1.003-1.030) 03/23/16 20:13 Urine Protein 100 mg/dl mg/dL (Negative) 03/23/16 20:13 Urine Glucose (UA) Neg mg/dL (Negative) 03/23/16 20:13 Urine Ketones Neg mg/dL (Negative) 03/23/16 20:13 Urine Blood Mod (Negative) 03/23/16 20:13 Urine Nitrite Neg (Negative) 03/23/16 20:13 Urine Bilirubin Neg (Negative) 03/23/16 20:13 Urine Urobilinogen < 2.0 mg/dL (<2.0) 03/23/16 20:13 Ur Leukocyte Esterase Neg (Negative) 03/23/16 20:13 Urine WBC (Auto) < 1.0 /HPF (0.0-6.0) 03/23/16 20:13 Urine RBC (Auto) < 1.0 /HPF (0.0-6.0) 03/23/16 20:13 U Epithel Cells (Auto) < 1.0 /HPF (0-13.0) 03/23/16 20:13 Urine Mucus Few /HPF 03/23/16 20:13 Salicylates 0.6 mg/dL (2.8-20.0) L 03/23/16 17:33 Urine Opiates Screen Presumptive positive 03/23/16 20:13 Urine Methadone Screen Presumptive negative 03/23/16 20:13 Acetaminophen < 15.0 ug/mL (10.0-30.0) 03/23/16 17:33 Ur Barbiturates Screen Presumptive negative 03/23/16 20:13 Ur Phencyclidine Scrn Presumptive negative 03/23/16 20:13 Ur Amphetamines Screen Presumptive negative 03/23/16 20:13 U Benzodiazepines Scrn Presumptive negative 03/23/16 20:13 Urine Cocaine Screen Presumptive negative 03/23/16 20:13 U Marijuana (THC) Screen Presumptive negative 03/23/16 20:13 Drugs of Abuse Note Disclamer 03/23/16 20:13 Plasma/Serum Alcohol < 0.01 gm% (0-0.07) 03/23/16 17:45 Blood Type B NEGATIVE 03/29/16 12:30 Antibody Screen Negative 03/29/16 12:30 Crossmatch See Detail 03/29/16 12:30
--- NOTE | 2016-04-02 10:06 | Progress Note ---
Assessment and Plan - Patient Problems (1) Metabolic acidosis Current Visit: Yes Status: Acute Plan to address problem: - resolved - stopped bicarbonate supplementation (2) Accidental drug overdose Current Visit: No Status: Acute Plan to address problem: - UDS positive for opiates - following clinically (3) CKD (chronic kidney disease) Current Visit: No Status: Chronic Qualifiers: Chronic kidney disease stage: unspecified stage Qualified Code(s): N18.9 - Chronic kidney disease, unspecified Plan to address problem: - non oliguric - Serum creatinine WNL (4) Acute hypoxemic respiratory failure Current Visit: Yes Status: Acute Plan to address problem: - improved - extubate after 2 Hr SBT - continue aspiration precautions - continue bronchodilators and pulmonary toilet - prn BIPAP post extubation (5) Altered mental status Current Visit: Yes Status: Acute Qualifiers: Altered mental status type: unspecified Qualified Code(s): R41.82 - Altered mental status, unspecified Plan to address problem: - added prn haldol - continue seroquel (up-titrate as necesary post extubation) - follow clinically (6) Anemia Current Visit: Yes Status: Acute Plan to address problem: - transfused 1 unit PRBC's - anemia w/up - stool occult blood ordered - negative stool guaiacresulted (7) Discharge planning issues Current Visit: Yes Status: Acute Plan to address problem: - extubate if passes SBT otherwise LTAC evaluation ..remains critically ill on life sustaining interventions including MVS; at high risk for further deterioration including ..35' CCT Subjective Date of service: 04/02/16 Principal diagnosis: Acute Hypoxemic Respiratory Failure Interval history: seen and examined at bedside; 24hour events reviewed; nursing and respiratory care staff consulted; no adverse overnight events reported to me; still a little agitated but much more appropriate; wants ETT out; denies acute chest pains or increased SOB; no emesis or oveert aspiration; s/p wound care per WCT Objective Vital Signs - 12hr 04/01/16 04/01/16 04/01/16 22:16 22:59 23:00 Temperature Pulse Rate 75 74 75 Pulse Rate [ Anterior Bilateral Throughout] Pulse Rate [ From Monitor] Respiratory 37 H 40 H Rate Respiratory Rate [Anterior Bilateral Throughout] Blood Pressure 159/67 159/67 166/54 O2 Sat by Pulse 99 97 Oximetry 04/02/16 04/02/16 04/02/16 00:00 01:00 02:00 Temperature Pulse Rate 80 73 64 Pulse Rate [ Anterior Bilateral Throughout] Pulse Rate [ 69 From Monitor] Respiratory 27 H 19 22 Rate Respiratory Rate [Anterior Bilateral Throughout] Blood Pressure 159/67 135/44 161/57 O2 Sat by Pulse 98 100 97 Oximetry 04/02/16 04/02/16 04/02/16 03:00 03:36 04:00 Temperature Pulse Rate 63 64 67 Pulse Rate [ Anterior Bilateral Throughout] Pulse Rate [ From Monitor] Respiratory 22 21 20 Rate Respiratory Rate [Anterior Bilateral Throughout] Blood Pressure 161/57 176/56 171/54 O2 Sat by Pulse 98 100 99 Oximetry 04/02/16 04/02/16 04/02/16 04:36 04:54 05:00 Temperature Pulse Rate 70 65 69 Pulse Rate [ Anterior Bilateral Throughout] Pulse Rate [ From Monitor] Respiratory 21 18 Rate Respiratory Rate [Anterior Bilateral Throughout] Blood Pressure 176/56 171/54 174/62 O2 Sat by Pulse 98 100 97 Oximetry 04/02/16 04/02/16 04/02/16 05:15 05:28 05:36 Temperature 100.2 F H Pulse Rate 87 85 Pulse Rate [ Anterior Bilateral Throughout] Pulse Rate [ From Monitor] Respiratory 42 H 38 H Rate Respiratory Rate [Anterior Bilateral Throughout] Blood Pressure 174/62 O2 Sat by Pulse 99 98 Oximetry 04/02/16 04/02/16 04/02/16 05:54 06:00 06:01 Temperature Pulse Rate 75 78 85 Pulse Rate [ Anterior Bilateral Throughout] Pulse Rate [ From Monitor] Respiratory 16 20 18 Rate Respiratory Rate [Anterior Bilateral Throughout] Blood Pressure 174/62 178/111 178/111 O2 Sat by Pulse 99 98 98 Oximetry 04/02/16 04/02/16 04/02/16 06:17 07:00 07:55 Temperature Pulse Rate 69 58 L 64 Pulse Rate [ 64 Anterior Bilateral Throughout] Pulse Rate [ From Monitor] Respiratory 18 Rate Respiratory 20 Rate [Anterior Bilateral Throughout] Blood Pressure 178/111 167/50 167/50 O2 Sat by Pulse 98 100 Oximetry 04/02/16 04/02/16 04/02/16 08:00 08:15 09:00 Temperature 98.8 F Pulse Rate 59 L 88 76 Pulse Rate [ 84 Anterior Bilateral Throughout] Pulse Rate [ From Monitor] Respiratory 20 25 H 38 H Rate Respiratory 25 H Rate [Anterior Bilateral Throughout] Blood Pressure 159/51 168/60 156/60 O2 Sat by Pulse 98 97 96 Oximetry Constitutional: alert Eyes: non-icteric ENT: oropharynx moist Neck: supple, no JVD Effort: mildly labored Ascultation: Bilateral: clear, diminished breath sounds Cardiovascular: regular rate and rhythm Gastrointestinal: normoactive bowel sounds, soft, non-tender, non-distended Integumentary: normal Extremities: no cyanosis, no edema, pink and warm, pulses normal, no ischemia or petechiae Neurologic: normal mental status, non-focal exam, pupils equal and round, motor strength normal and Psychiatric: other (agitated) CBC and BMP: 04/02/16 04:37 04/02/16 04:37 ABG, PT/INR, D-dimer: ABG POC ABG pH 7.465 (7.35-7.45) H 04/01/16 05:24 POC ABG pCO2 33.2 (35-45) L 04/01/16 05:24 POC ABG pO2 92 (80-105) 04/01/16 05:24 POC ABG HCO3 23.9 04/01/16 05:24 POC ABG Total CO2 25 04/01/16 05:24 POC ABG O2 Sat 98 04/01/16 05:24 PT/INR, D-dimer PT 16.8 Sec. (12.2-14.9) H 03/23/16 18:56 INR 1.37 (0.87-1.13) H 03/23/16 18:56 Abnormal lab findings: Abnormal Labs 03/24/16 03/24/16 03/24/16 00:10 05:04 05:12 RBC 2.42 L Hgb 7.8 L Hct 23.4 L MCV 99 H MCH RDW Plt Count 139 L [place] % (Auto) 10.4 H Lymph # 0.9 L Seg Neutrophils % 71.0 H Lymphocytes % (Manual) Lymphocytes # (Manual) POC ABG pH 7.279 L POC ABG pCO2 33.6 L POC ABG pO2 112 H Sodium Chloride Carbon Dioxide BUN Creatinine Glucose POC Glucose 144 H Calcium Total Protein Albumin Crossmatch 03/24/16 03/24/16 03/25/16 05:12 05:50 04:30 RBC 2.55 L Hgb 8.0 L Hct 25.0 L MCV 98 H MCH RDW 15.6 H Plt Count [place] % (Auto) Lymph # Seg Neutrophils % Lymphocytes % (Manual) 10.0 L Lymphocytes # (Manual) 0.7 L POC ABG pH POC ABG pCO2 POC ABG pO2 Sodium Chloride 112.3 H Carbon Dioxide 17 L BUN 51 H Creatinine 2.3 H Glucose POC Glucose 107 H Calcium 7.0 L Total Protein Albumin Crossmatch 03/25/16 03/25/16 03/25/16 04:30 04:58 10:17 RBC Hgb Hct MCV MCH RDW Plt Count [place] % (Auto) Lymph # Seg Neutrophils % Lymphocytes % (Manual) Lymphocytes # (Manual) POC ABG pH 7.285 L 7.261 L POC ABG pCO2 27.2 L 28.6 L POC ABG pO2 112 H Sodium 148 H Chloride 116.9 H Carbon Dioxide 14 L BUN 38 H Creatinine 1.7 H Glucose POC Glucose Calcium 7.1 L Total Protein 5.0 L D Albumin 2.4 L Crossmatch 03/26/16 03/26/16 03/26/16 05:30 05:30 05:32 RBC 2.37 L Hgb 7.7 L Hct 23.0 L MCV MCH 33 H RDW Plt Count 134 L [place] % (Auto) 15.2 H Lymph # 0.9 L Seg Neutrophils % Lymphocytes % (Manual) Lymphocytes # (Manual) POC ABG pH POC ABG pCO2 31.8 L POC ABG pO2 Sodium 147 H Chloride 112.3 H Carbon Dioxide 21 L D BUN 20 H Creatinine 1.3 H Glucose 121 H POC Glucose Calcium 7.6 L Total Protein Albumin Crossmatch 03/26/16 03/26/16 03/26/16 06:05 11:46 17:24 RBC Hgb Hct MCV MCH RDW Plt Count [place] % (Auto) Lymph # Seg Neutrophils % Lymphocytes % (Manual) Lymphocytes # (Manual) POC ABG pH POC ABG pCO2 POC ABG pO2 Sodium Chloride Carbon Dioxide BUN Creatinine Glucose POC Glucose 115 H 146 H 134 H Calcium Total Protein Albumin Crossmatch 03/26/16 03/27/16 03/27/16 23:41 06:00 06:00 RBC 2.46 L Hgb 7.8 L Hct 23.7 L MCV MCH RDW Plt Count 138 L [place] % (Auto) 12.5 H Lymph # Seg Neutrophils % Lymphocytes % (Manual) Lymphocytes # (Manual) POC ABG pH POC ABG pCO2 POC ABG pO2 Sodium Chloride Carbon Dioxide BUN Creatinine Glucose POC Glucose 155 H Calcium 7.6 L Total Protein Albumin Crossmatch 03/27/16 03/27/16 03/27/16 11:25 17:37 18:01 RBC Hgb Hct MCV MCH RDW Plt Count [place] % (Auto) Lymph # Seg Neutrophils % Lymphocytes % (Manual) Lymphocytes # (Manual) POC ABG pH POC ABG pCO2 POC ABG pO2 Sodium Chloride Carbon Dioxide BUN Creatinine Glucose POC Glucose 163 H 173 H 171 H Calcium Total Protein Albumin Crossmatch 03/27/16 03/28/16 03/28/16 23:51 04:53 05:47 RBC Hgb Hct MCV MCH RDW Plt Count [place] % (Auto) Lymph # Seg Neutrophils % Lymphocytes % (Manual) Lymphocytes # (Manual) POC ABG pH POC ABG pCO2 34.9 L POC ABG pO2 Sodium Chloride Carbon Dioxide BUN Creatinine Glucose POC Glucose 136 H 164 H Calcium Total Protein Albumin Crossmatch 03/28/16 03/28/16 03/29/16 11:54 17:33 00:11 RBC Hgb Hct MCV MCH RDW Plt Count [place] % (Auto) Lymph # Seg Neutrophils % Lymphocytes % (Manual) Lymphocytes # (Manual) POC ABG pH POC ABG pCO2 POC ABG pO2 Sodium Chloride Carbon Dioxide BUN Creatinine Glucose POC Glucose 129 H 148 H 154 H Calcium Total Protein Albumin Crossmatch 03/29/16 03/29/16 03/29/16 04:43 05:00 05:00 RBC 2.07 L Hgb 6.7 L Hct 20.2 L MCV MCH RDW Plt Count 121 L [place] % (Auto) Lymph # Seg Neutrophils % Lymphocytes % (Manual) Lymphocytes # (Manual) POC ABG pH 7.471 H POC ABG pCO2 POC ABG pO2 Sodium 149 H Chloride 111.2 H Carbon Dioxide BUN Creatinine 1.3 H Glucose 110 H POC Glucose Calcium 7.6 L Total Protein Albumin Crossmatch 03/29/16 03/29/16 03/29/16 05:35 09:30 11:40 RBC Hgb 6.5 L Hct 20.0 L MCV MCH RDW Plt Count [place] % (Auto) Lymph # Seg Neutrophils % Lymphocytes % (Manual) Lymphocytes # (Manual) POC ABG pH POC ABG pCO2 POC ABG pO2 Sodium Chloride Carbon Dioxide BUN Creatinine Glucose POC Glucose 108 H 141 H Calcium Total Protein Albumin Crossmatch 03/29/16 03/29/16 03/30/16 12:30 17:45 05:15 RBC 2.41 L Hgb 7.7 L Hct 23.1 L MCV MCH RDW 15.3 H Plt Count 131 L [place] % (Auto) Lymph # Seg Neutrophils % Lymphocytes % (Manual) Lymphocytes # (Manual) POC ABG pH POC ABG pCO2 POC ABG pO2 Sodium Chloride Carbon Dioxide BUN Creatinine Glucose POC Glucose 200 H Calcium Total Protein Albumin Crossmatch See Detail 03/30/16 03/30/16 03/30/16 05:15 05:56 11:46 RBC Hgb Hct MCV MCH RDW Plt Count [place] % (Auto) Lymph # Seg Neutrophils % Lymphocytes % (Manual) Lymphocytes # (Manual) POC ABG pH POC ABG pCO2 POC ABG pO2 Sodium Chloride Carbon Dioxide BUN Creatinine Glucose 144 H POC Glucose 141 H 167 H Calcium 7.6 L Total Protein Albumin Crossmatch 03/30/16 03/30/16 03/31/16 18:17 23:37 05:25 RBC Hgb Hct MCV MCH RDW Plt Count [place] % (Auto) Lymph # Seg Neutrophils % Lymphocytes % (Manual) Lymphocytes # (Manual) POC ABG pH POC ABG pCO2 POC ABG pO2 Sodium Chloride Carbon Dioxide BUN Creatinine Glucose POC Glucose 190 H 266 H 222 H Calcium Total Protein Albumin Crossmatch 03/31/16 03/31/16 03/31/16 06:30 06:30 12:05 RBC 2.38 L Hgb 7.7 L Hct 23.0 L MCV MCH RDW Plt Count [place] % (Auto) Lymph # Seg Neutrophils % Lymphocytes % (Manual) Lymphocytes # (Manual) POC ABG pH POC ABG pCO2 POC ABG pO2 Sodium Chloride Carbon Dioxide BUN Creatinine Glucose 193 H POC Glucose 204 H Calcium 8.1 L Total Protein Albumin Crossmatch 03/31/16 03/31/16 04/01/16 18:10 23:42 05:24 RBC Hgb Hct MCV MCH RDW Plt Count [place] % (Auto) Lymph # Seg Neutrophils % Lymphocytes % (Manual) Lymphocytes # (Manual) POC ABG pH 7.465 H POC ABG pCO2 33.2 L POC ABG pO2 Sodium Chloride Carbon Dioxide BUN Creatinine Glucose POC Glucose 181 H 203 H Calcium Total Protein Albumin Crossmatch 04/01/16 04/01/16 04/01/16 05:54 11:21 17:50 RBC Hgb Hct MCV MCH RDW Plt Count [place] % (Auto) Lymph # Seg Neutrophils % Lymphocytes % (Manual) Lymphocytes # (Manual) POC ABG pH POC ABG pCO2 POC ABG pO2 Sodium Chloride Carbon Dioxide BUN Creatinine Glucose POC Glucose 218 H 173 H 206 H Calcium Total Protein Albumin Crossmatch 04/01/16 04/02/16 04/02/16 22:02 00:38 04:37 RBC 2.59 L Hgb 8.2 L Hct 24.7 L MCV MCH RDW Plt Count [place] % (Auto) Lymph # Seg Neutrophils % Lymphocytes % (Manual) Lymphocytes # (Manual) POC ABG pH POC ABG pCO2 POC ABG pO2 Sodium Chloride Carbon Dioxide BUN Creatinine Glucose POC Glucose 172 H 201 H Calcium Total Protein Albumin Crossmatch 04/02/16 04:37 RBC Hgb Hct MCV MCH RDW Plt Count [place] % (Auto) Lymph # Seg Neutrophils % Lymphocytes % (Manual) Lymphocytes # (Manual) POC ABG pH POC ABG pCO2 POC ABG pO2 Sodium Chloride Carbon Dioxide BUN Creatinine Glucose 206 H POC Glucose Calcium Total Protein Albumin Crossmatch
[2016-04-02 10:19] LABS: ISTAT Base Excess 2; ISTAT HCO3 26.2; ISTAT PCO2 38.4 (35-45); ISTAT PH 7.442 (7.35-7.45); ISTAT PO2 86 (80-105); ISTAT SO2 97; ISTAT TCO2 27
[2016-04-02] MEDS: LEVAQUIN 750MG/150ML 150 ML IV SCH (11:41)
[2016-04-02] MEDS: PLAVIX PO SCH (11:48)
[2016-04-02] MEDS: DIFLUCAN/NS 100 MG/50 ML 50 ML IV SCH (11:54)
[2016-04-02] MEDS: PEPCID PO SCH (11:54)
[2016-04-02] MEDS: SENOKOT S PO SCH ×2 (12:40→21:28)
[2016-04-02] MEDS ORDERED: WATER FOR INJ (PF) 10 ML ONE (13:21)
[2016-04-02] MEDS ORDERED: PROTONIX IV SCH (18:00)
[2016-04-02] MEDS ORDERED: CATHFLO IV ONE (19:28)
[2016-04-02] MEDS: XALATAN 0.005% OU SCH ×2 (21:26→21:27)
[2016-04-02] MEDS: TYLENOL FEEDTUBE PRN (23:19)
[2016-04-03] MEDS: NOVOLOG SUB-Q SCH ×4 (00:30→17:43)
[2016-04-03] MEDS: CATAPRES PO SCH ×3 (06:45→23:18)
[2016-04-03] MEDS: HEPARIN SUB-Q SCH ×3 (06:50→22:54)
[2016-04-03] MEDS: DUONEB 0.5 MG-3 MG/3 ML SOLN IH SCH ×3 (07:33→20:02)
--- NOTE | 2016-04-03 08:33 | Progress Note ---
Assessment and Plan Assessment and plan: Acute respiratory failure due to COPD exacerbation. Extubated yesterday, less SOB. She feels better. Continue nebulizers, IV steroids,Pulm following. --Acute exacerbation of COPD Continue oxygen support, nebulizers, IV steroids IV antibiotics inhalation steroids and supportive care Anemia. Hgb 8.2 .She is s/p 1 Unit PRBC transfusion. Stool occult blood negative x 2 Acute on chronic kidney disease, resolved. improving Probably secondary to ATN. IV hydration. Creatinine 0.8 . Encephalopathy /Opiate overdose; accidental. Hypotension/shock,Improved, off pressors Hypernatremia. This is resolved. SIRS; Metabolic acidosis secondary to acute renal failure Dysphagia. She failed swallow eval. Dobhoff recommended but she refused. DVT prophylaxis; with Lovenox, FULL CODE STATUS -- History Interval history: Patient with acute respiratory failure, Extubated yesterday, Failed swallow screen Hospitalist Physical - Physical exam Narrative exam: Gen: Not in acute distress,obese HEENT: extubated Neck: No JVD Lungs: Lungs decreased BS, no crackles. Heart:S1 and S2 reg, no murmurs,rubs or gallop Abd: soft, Non-tender, non-distended, Normal bowel sounds Ext: No edema, no clubbing , no cyanosis Neuro: awake,alert,oriented - Constitutional Vitals: Temp Pulse Resp BP Pulse Ox 98.9 F 89 20 150/48 95 04/03/16 04:20 04/03/16 07:41 04/03/16 07:41 04/03/16 07:00 04/03/16 07:36 General appearance: Present: no acute distress, well-nourished, obese, other ( intubated on ventilatory support) Results - Labs CBC & Chem 7: 04/02/16 04:37 04/02/16 04:37 Labs: Laboratory Last Values WBC 8.0 K/mm3 (4.5-11.0) 04/02/16 04:37 RBC 2.59 M/mm3 (3.65-5.03) L 04/02/16 04:37 Hgb 8.2 gm/dl (10.1-14.3) L 04/02/16 04:37 Hct 24.7 % (30.3-42.9) L 04/02/16 04:37 MCV 95 fl (79-97) 04/02/16 04:37 MCH 32 pg (28-32) 04/02/16 04:37 MCHC 33 % (30-34) 04/02/16 04:37 RDW 14.1 % (13.2-15.2) 04/02/16 04:37 Plt Count 242 K/mm3 (140-440) 04/02/16 04:37 Lymph % (Auto) 22.9 % (13.4-35.0) 03/27/16 06:00 [place] % (Auto) 12.5 % (0.0-7.3) H 03/27/16 06:00 Eos % (Auto) 1.1 % (0.0-4.3) 03/27/16 06:00 Baso % (Auto) 0.4 % (0.0-1.8) 03/27/16 06:00 Lymph # 1.4 K/mm3 (1.2-5.4) 03/27/16 06:00 [place] # 0.8 K/mm3 (0.0-0.8) 03/27/16 06:00 Eos # 0.1 K/mm3 (0.0-0.4) 03/27/16 06:00 Baso # 0.0 K/mm3 (0.0-0.1) 03/27/16 06:00 Add Manual Diff Complete 03/25/16 04:30 Total Counted 100 03/25/16 04:30 Seg Neutrophils % 63.1 % (40.0-70.0) 03/27/16 06:00 Seg Neuts % (Manual) 64.0 % (40.0-70.0) 03/25/16 04:30 Band Neutrophils % 18.0 % 03/25/16 04:30 Lymphocytes % (Manual) 10.0 % (13.4-35.0) L 03/25/16 04:30 Reactive Lymphs % (Man) 0 % 03/25/16 04:30 Monocytes % (Manual) 7.0 % (0.0-7.3) 03/25/16 04:30 Eosinophils % (Manual) 1.0 % (0.0-4.3) 03/25/16 04:30 Basophils % (Manual) 0 % (0.0-1.8) 03/25/16 04:30 Metamyelocytes % 0 % 03/25/16 04:30 Myelocytes % 0 % 03/25/16 04:30 Promyelocytes % 0 % 03/25/16 04:30 Blast Cells % 0 % 03/25/16 04:30 Nucleated RBC % Not Reportable 03/25/16 04:30 Seg Neutrophils # 3.9 K/mm3 (1.8-7.7) 03/27/16 06:00 Seg Neutrophils # Man 4.7 K/mm3 (1.8-7.7) 03/25/16 04:30 Band Neutrophils # 1.3 K/mm3 03/25/16 04:30 Lymphocytes # (Manual) 0.7 K/mm3 (1.2-5.4) L 03/25/16 04:30 Abs React Lymphs (Man) 0.0 K/mm3 03/25/16 04:30 Monocytes # (Manual) 0.5 K/mm3 (0.0-0.8) 03/25/16 04:30 Eosinophils # (Manual) 0.1 K/mm3 (0.0-0.4) 03/25/16 04:30 Basophils # (Manual) 0.0 K/mm3 (0.0-0.1) 03/25/16 04:30 Metamyelocytes # 0.0 K/mm3 03/25/16 04:30 Myelocytes # 0.0 K/mm3 03/25/16 04:30 Promyelocytes # 0.0 K/mm3 03/25/16 04:30 Blast Cells # 0.0 K/mm3 03/25/16 04:30 WBC Morphology Not Reportable 03/25/16 04:30 Hypersegmented Neuts Not Reportable 03/25/16 04:30 Hyposegmented Neuts Not Reportable 03/25/16 04:30 Hypogranular Neuts Not Reportable 03/25/16 04:30 Smudge Cells Not Reportable 03/25/16 04:30 Toxic Granulation Not Reportable 03/25/16 04:30 Toxic Vacuolation Not Reportable 03/25/16 04:30 Dohle Bodies Not Reportable 03/25/16 04:30 Pelger-Huet Anomaly Not Reportable 03/25/16 04:30 Sameer Rods Not Reportable 03/25/16 04:30 Platelet Estimate Appears decreased 03/25/16 04:30 Clumped Platelets Not Reportable 03/25/16 04:30 Plt Clumps, EDTA Not Reportable 03/25/16 04:30 Large Platelets Not Reportable 03/25/16 04:30 Giant Platelets Not Reportable 03/25/16 04:30 Platelet Satelliting Not Reportable 03/25/16 04:30 Plt Morphology Comment Not Reportable 03/25/16 04:30 RBC Morphology Not Reportable 03/25/16 04:30 Dimorphic RBCs Not Reportable 03/25/16 04:30 Polychromasia Not Reportable 03/25/16 04:30 Hypochromasia Not Reportable 03/25/16 04:30 Poikilocytosis Few 03/25/16 04:30 Anisocytosis Not Reportable 03/25/16 04:30 Microcytosis Not Reportable 03/25/16 04:30 Macrocytosis Not Reportable 03/25/16 04:30 Spherocytes Not Reportable 03/25/16 04:30 Pappenheimer Bodies Not Reportable 03/25/16 04:30 Sickle Cells Not Reportable 03/25/16 04:30 Target Cells Not Reportable 03/25/16 04:30 Tear Drop Cells Not Reportable 03/25/16 04:30 Ovalocytes Few 03/25/16 04:30 Helmet Cells Not Reportable 03/25/16 04:30 [place] Bodies Not Reportable 03/25/16 04:30 [place] Rings Not Reportable 03/25/16 04:30 Ryan Cells Not Reportable 03/25/16 04:30 Bite Cells Not Reportable 03/25/16 04:30 Crenated Cell Not Reportable 03/25/16 04:30 Elliptocytes Not Reportable 03/25/16 04:30 Acanthocytes (Spur) Not Reportable 03/25/16 04:30 Rouleaux Not Reportable 03/25/16 04:30 Hemoglobin C Crystals Not Reportable 03/25/16 04:30 Schistocytes Not Reportable 03/25/16 04:30 Malaria parasites Not Reportable 03/25/16 04:30 Konstantin Bodies Not Reportable 03/25/16 04:30 Hem Pathologist Commnt No 03/25/16 04:30 PT 16.8 Sec. (12.2-14.9) H 03/23/16 18:56 INR 1.37 (0.87-1.13) H 03/23/16 18:56 APTT 28.7 Sec. (24.2-36.6) 03/23/16 18:56 POC ABG pH 7.442 (7.35-7.45) 04/02/16 10:06 POC ABG pCO2 38.4 (35-45) 04/02/16 10:06 POC ABG pO2 86 (80-105) 04/02/16 10:06 POC ABG HCO3 26.2 04/02/16 10:06 POC ABG Total CO2 27 04/02/16 10:06 POC ABG O2 Sat 97 04/02/16 10:06 POC ABG Base Excess 2 04/02/16 10:06 FiO2 35 % 04/02/16 10:06 Sodium 142 mmol/L (137-145) 03/31/16 06:30 Potassium 3.8 mmol/L (3.6-5.0) 03/31/16 06:30 Chloride 105.9 mmol/L (98-107) 03/31/16 06:30 Carbon Dioxide 25 mmol/L (22-30) 04/02/16 04:37 Anion Gap 15 mmol/L 03/31/16 06:30 BUN 12 mg/dL (7-17) 04/02/16 04:37 Creatinine 0.8 mg/dL (0.7-1.2) 04/02/16 04:37 Estimated GFR > 60 ml/min 04/02/16 04:37 BUN/Creatinine Ratio 15.00 % 04/02/16 04:37 Glucose 206 mg/dL (65-100) H 04/02/16 04:37 POC Glucose 113 (70-105) H 04/03/16 06:25 Lactic Acid 1.4 mmol/L (0.7-2.0) 03/23/16 20:10 Calcium 8.4 mg/dL (8.4-10.2) 04/02/16 04:37 Phosphorus 3.8 mg/dL (2.5-4.5) 03/25/16 04:30 Magnesium 2.2 mg/dL (1.7-2.3) 03/28/16 05:30 Total Bilirubin 0.2 mg/dL (0.1-1.2) 03/25/16 04:30 Direct Bilirubin < 0.2 mg/dL (0-0.2) 03/25/16 04:30 Indirect Bilirubin 0.0 mg/dL 03/25/16 04:30 AST 20 units/L (5-40) 03/25/16 04:30 ALT 12 units/L (7-56) 03/25/16 04:30 Alkaline Phosphatase 86 units/L (35-129) 03/25/16 04:30 Total Protein 5.0 g/dL (6.3-8.2) L D 03/25/16 04:30 Albumin 2.4 g/dL (3.9-5) L 03/25/16 04:30 Albumin/Globulin Ratio 0.9 % 03/25/16 04:30 TSH 0.264 mlU/mL (0.270-4.200) L 03/23/16 17:33 Urine Color Yellow (Yellow) 03/23/16 20:13 Urine Turbidity Slightly-cloudy (Clear) 03/23/16 20:13 Urine pH 5.0 (5.0-7.0) 03/23/16 20:13 Ur Specific [place] 1.016 (1.003-1.030) 03/23/16 20:13 Urine Protein 100 mg/dl mg/dL (Negative) 03/23/16 20:13 Urine Glucose (UA) Neg mg/dL (Negative) 03/23/16 20:13 Urine Ketones Neg mg/dL (Negative) 03/23/16 20:13 Urine Blood Mod (Negative) 03/23/16 20:13 Urine Nitrite Neg (Negative) 03/23/16 20:13 Urine Bilirubin Neg (Negative) 03/23/16 20:13 Urine Urobilinogen < 2.0 mg/dL (<2.0) 03/23/16 20:13 Ur Leukocyte Esterase Neg (Negative) 03/23/16 20:13 Urine WBC (Auto) < 1.0 /HPF (0.0-6.0) 03/23/16 20:13 Urine RBC (Auto) < 1.0 /HPF (0.0-6.0) 03/23/16 20:13 U Epithel Cells (Auto) < 1.0 /HPF (0-13.0) 03/23/16 20:13 Urine Mucus Few /HPF 03/23/16 20:13 Salicylates 0.6 mg/dL (2.8-20.0) L 03/23/16 17:33 Urine Opiates Screen Presumptive positive 03/23/16 20:13 Urine Methadone Screen Presumptive negative 03/23/16 20:13 Acetaminophen < 15.0 ug/mL (10.0-30.0) 03/23/16 17:33 Ur Barbiturates Screen Presumptive negative 03/23/16 20:13 Ur Phencyclidine Scrn Presumptive negative 03/23/16 20:13 Ur Amphetamines Screen Presumptive negative 03/23/16 20:13 U Benzodiazepines Scrn Presumptive negative 03/23/16 20:13 Urine Cocaine Screen Presumptive negative 03/23/16 20:13 U Marijuana (THC) Screen Presumptive negative 03/23/16 20:13 Drugs of Abuse Note Disclamer 03/23/16 20:13 Plasma/Serum Alcohol < 0.01 gm% (0-0.07) 03/23/16 17:45 Blood Type B NEGATIVE 03/29/16 12:30 Antibody Screen Negative 03/29/16 12:30 Crossmatch See Detail 03/29/16 12:30
[2016-04-03] MEDS: PEPCID IV SCH ×2 (10:31→22:54)
--- NOTE | 2016-04-03 10:40 | Progress Note ---
Assessment and Plan - Patient Problems (1) Metabolic acidosis Current Visit: Yes Status: Acute Plan to address problem: - resolved - stopped bicarbonate supplementation (2) Accidental drug overdose Current Visit: No Status: Acute Plan to address problem: - UDS positive for opiates - following clinically (3) CKD (chronic kidney disease) Current Visit: No Status: Chronic Qualifiers: Chronic kidney disease stage: unspecified stage Qualified Code(s): N18.9 - Chronic kidney disease, unspecified Plan to address problem: - non oliguric - Serum creatinine WNL (4) Acute hypoxemic respiratory failure Current Visit: Yes Status: Acute Plan to address problem: - improved - extubated - continue aspiration precautions - continue bronchodilators and pulmonary toilet - prn BIPAP - wean oxygen for sats> 92% (5) Altered mental status Current Visit: Yes Status: Acute Qualifiers: Altered mental status type: unspecified Qualified Code(s): R41.82 - Altered mental status, unspecified Plan to address problem: - continue prn haldol - continue seroquel - follow clinically (6) Anemia Current Visit: Yes Status: Acute Plan to address problem: - transfused 1 unit PRBC's this admission - anemia w/up - stool occult blood ordered - negative stool guaiac resulted (7) Discharge planning issues Current Visit: Yes Status: Acute Plan to address problem: - transfer to medical floor Subjective Date of service: 04/03/16 Principal diagnosis: Acute Hypoxemic Respiratory Failure Interval history: seen and examined at bedside; 24hour events reviewed; nursing and respiratory care staff consulted; no adverse overnight events reported to me; doing well post extubation; failed swallow evaluation yesterday but declined feeding tube; awaiting official swallow evaluation; denies chest pains or acute SOB; on 3L NC Objective Vital Signs - 12hr 04/02/16 04/02/16 04/02/16 22:55 22:58 23:00 Temperature Pulse Rate 86 86 80 Pulse Rate [ Anterior Bilateral] Respiratory 26 H 39 H 38 H Rate Respiratory Rate [Anterior Bilateral] Blood Pressure 162/56 162/56 162/57 O2 Sat by Pulse 92 89 87 Oximetry 04/02/16 04/03/16 04/03/16 23:04 00:00 01:00 Temperature Pulse Rate 75 64 60 Pulse Rate [ Anterior Bilateral] Respiratory 33 H 34 H 29 H Rate Respiratory Rate [Anterior Bilateral] Blood Pressure 162/57 162/57 173/58 O2 Sat by Pulse 98 99 97 Oximetry 04/03/16 04/03/16 04/03/16 01:01 01:08 02:00 Temperature 98.4 F Pulse Rate 60 59 L Pulse Rate [ Anterior Bilateral] Respiratory 29 H 28 H Rate Respiratory Rate [Anterior Bilateral] Blood Pressure 173/58 155/55 O2 Sat by Pulse 97 95 Oximetry 04/03/16 04/03/16 04/03/16 02:42 03:00 04:00 Temperature Pulse Rate 61 64 88 Pulse Rate [ Anterior Bilateral] Respiratory 27 H 28 H 24 Rate Respiratory Rate [Anterior Bilateral] Blood Pressure 155/55 147/50 174/143 O2 Sat by Pulse 97 87 92 Oximetry 04/03/16 04/03/16 04/03/16 04:20 05:00 06:00 Temperature 98.9 F Pulse Rate 84 70 Pulse Rate [ Anterior Bilateral] Respiratory 32 H 35 H Rate Respiratory Rate [Anterior Bilateral] Blood Pressure 174/143 150/55 O2 Sat by Pulse 94 96 Oximetry 04/03/16 04/03/16 04/03/16 06:45 07:00 07:04 Temperature Pulse Rate 72 84 91 H Pulse Rate [ Anterior Bilateral] Respiratory 32 H 18 Rate Respiratory Rate [Anterior Bilateral] Blood Pressure 148/58 150/48 215/172 O2 Sat by Pulse 98 99 Oximetry 04/03/16 04/03/16 04/03/16 07:35 07:36 07:41 Temperature Pulse Rate Pulse Rate [ 88 89 Anterior Bilateral] Respiratory Rate Respiratory 20 20 Rate [Anterior Bilateral] Blood Pressure O2 Sat by Pulse 95 Oximetry 04/03/16 04/03/16 04/03/16 08:00 08:46 09:00 Temperature 98.9 F Pulse Rate 91 H 85 81 Pulse Rate [ Anterior Bilateral] Respiratory 36 H 35 H 39 H Rate Respiratory Rate [Anterior Bilateral] Blood Pressure 157/68 146/68 167/65 O2 Sat by Pulse 92 91 92 Oximetry 04/03/16 09:22 Temperature Pulse Rate 85 Pulse Rate [ Anterior Bilateral] Respiratory Rate Respiratory Rate [Anterior Bilateral] Blood Pressure O2 Sat by Pulse Oximetry Constitutional: alert Eyes: non-icteric ENT: oropharynx moist Neck: supple, no JVD Effort: normal Ascultation: Bilateral: diminished breath sounds, rhonchi (base) Cardiovascular: regular rate and rhythm Gastrointestinal: normoactive bowel sounds, soft, non-tender, non-distended Integumentary: normal Extremities: no cyanosis, no edema, pink and warm, pulses normal, no ischemia or petechiae Neurologic: normal mental status, non-focal exam, pupils equal and round, motor strength normal and Psychiatric: mood appropriate, affect normal CBC and BMP: 04/02/16 04:37 04/02/16 04:37 ABG, PT/INR, D-dimer: ABG POC ABG pH 7.442 (7.35-7.45) 04/02/16 10:06 POC ABG pCO2 38.4 (35-45) 04/02/16 10:06 POC ABG pO2 86 (80-105) 04/02/16 10:06 POC ABG HCO3 26.2 04/02/16 10:06 POC ABG Total CO2 27 04/02/16 10:06 POC ABG O2 Sat 97 04/02/16 10:06 PT/INR, D-dimer PT 16.8 Sec. (12.2-14.9) H 03/23/16 18:56 INR 1.37 (0.87-1.13) H 03/23/16 18:56 Abnormal lab findings: Abnormal Labs 03/24/16 03/24/16 03/24/16 00:10 05:04 05:12 RBC 2.42 L Hgb 7.8 L Hct 23.4 L MCV 99 H MCH RDW Plt Count 139 L [place] % (Auto) 10.4 H Lymph # 0.9 L Seg Neutrophils % 71.0 H Lymphocytes % (Manual) Lymphocytes # (Manual) POC ABG pH 7.279 L POC ABG pCO2 33.6 L POC ABG pO2 112 H Sodium Chloride Carbon Dioxide BUN Creatinine Glucose POC Glucose 144 H Calcium Total Protein Albumin Crossmatch 03/24/16 03/24/16 03/25/16 05:12 05:50 04:30 RBC 2.55 L Hgb 8.0 L Hct 25.0 L MCV 98 H MCH RDW 15.6 H Plt Count [place] % (Auto) Lymph # Seg Neutrophils % Lymphocytes % (Manual) 10.0 L Lymphocytes # (Manual) 0.7 L POC ABG pH POC ABG pCO2 POC ABG pO2 Sodium Chloride 112.3 H Carbon Dioxide 17 L BUN 51 H Creatinine 2.3 H Glucose POC Glucose 107 H Calcium 7.0 L Total Protein Albumin Crossmatch 03/25/16 03/25/16 03/25/16 04:30 04:58 10:17 RBC Hgb Hct MCV MCH RDW Plt Count [place] % (Auto) Lymph # Seg Neutrophils % Lymphocytes % (Manual) Lymphocytes # (Manual) POC ABG pH 7.285 L 7.261 L POC ABG pCO2 27.2 L 28.6 L POC ABG pO2 112 H Sodium 148 H Chloride 116.9 H Carbon Dioxide 14 L BUN 38 H Creatinine 1.7 H Glucose POC Glucose Calcium 7.1 L Total Protein 5.0 L D Albumin 2.4 L Crossmatch 03/26/16 03/26/16 03/26/16 05:30 05:30 05:32 RBC 2.37 L Hgb 7.7 L Hct 23.0 L MCV MCH 33 H RDW Plt Count 134 L [place] % (Auto) 15.2 H Lymph # 0.9 L Seg Neutrophils % Lymphocytes % (Manual) Lymphocytes # (Manual) POC ABG pH POC ABG pCO2 31.8 L POC ABG pO2 Sodium 147 H Chloride 112.3 H Carbon Dioxide 21 L D BUN 20 H Creatinine 1.3 H Glucose 121 H POC Glucose Calcium 7.6 L Total Protein Albumin Crossmatch 03/26/16 03/26/16 03/26/16 06:05 11:46 17:24 RBC Hgb Hct MCV MCH RDW Plt Count [place] % (Auto) Lymph # Seg Neutrophils % Lymphocytes % (Manual) Lymphocytes # (Manual) POC ABG pH POC ABG pCO2 POC ABG pO2 Sodium Chloride Carbon Dioxide BUN Creatinine Glucose POC Glucose 115 H 146 H 134 H Calcium Total Protein Albumin Crossmatch 03/26/16 03/27/16 03/27/16 23:41 06:00 06:00 RBC 2.46 L Hgb 7.8 L Hct 23.7 L MCV MCH RDW Plt Count 138 L [place] % (Auto) 12.5 H Lymph # Seg Neutrophils % Lymphocytes % (Manual) Lymphocytes # (Manual) POC ABG pH POC ABG pCO2 POC ABG pO2 Sodium Chloride Carbon Dioxide BUN Creatinine Glucose POC Glucose 155 H Calcium 7.6 L Total Protein Albumin Crossmatch 03/27/16 03/27/16 03/27/16 11:25 17:37 18:01 RBC Hgb Hct MCV MCH RDW Plt Count [place] % (Auto) Lymph # Seg Neutrophils % Lymphocytes % (Manual) Lymphocytes # (Manual) POC ABG pH POC ABG pCO2 POC ABG pO2 Sodium Chloride Carbon Dioxide BUN Creatinine Glucose POC Glucose 163 H 173 H 171 H Calcium Total Protein Albumin Crossmatch 03/27/16 03/28/16 03/28/16 23:51 04:53 05:47 RBC Hgb Hct MCV MCH RDW Plt Count [place] % (Auto) Lymph # Seg Neutrophils % Lymphocytes % (Manual) Lymphocytes # (Manual) POC ABG pH POC ABG pCO2 34.9 L POC ABG pO2 Sodium Chloride Carbon Dioxide BUN Creatinine Glucose POC Glucose 136 H 164 H Calcium Total Protein Albumin Crossmatch 03/28/16 03/28/16 03/29/16 11:54 17:33 00:11 RBC Hgb Hct MCV MCH RDW Plt Count [place] % (Auto) Lymph # Seg Neutrophils % Lymphocytes % (Manual) Lymphocytes # (Manual) POC ABG pH POC ABG pCO2 POC ABG pO2 Sodium Chloride Carbon Dioxide BUN Creatinine Glucose POC Glucose 129 H 148 H 154 H Calcium Total Protein Albumin Crossmatch 03/29/16 03/29/16 03/29/16 04:43 05:00 05:00 RBC 2.07 L Hgb 6.7 L Hct 20.2 L MCV MCH RDW Plt Count 121 L [place] % (Auto) Lymph # Seg Neutrophils % Lymphocytes % (Manual) Lymphocytes # (Manual) POC ABG pH 7.471 H POC ABG pCO2 POC ABG pO2 Sodium 149 H Chloride 111.2 H Carbon Dioxide BUN Creatinine 1.3 H Glucose 110 H POC Glucose Calcium 7.6 L Total Protein Albumin Crossmatch 03/29/16 03/29/16 03/29/16 05:35 09:30 11:40 RBC Hgb 6.5 L Hct 20.0 L MCV MCH RDW Plt Count [place] % (Auto) Lymph # Seg Neutrophils % Lymphocytes % (Manual) Lymphocytes # (Manual) POC ABG pH POC ABG pCO2 POC ABG pO2 Sodium Chloride Carbon Dioxide BUN Creatinine Glucose POC Glucose 108 H 141 H Calcium Total Protein Albumin Crossmatch 03/29/16 03/29/16 03/30/16 12:30 17:45 05:15 RBC 2.41 L Hgb 7.7 L Hct 23.1 L MCV MCH RDW 15.3 H Plt Count 131 L [place] % (Auto) Lymph # Seg Neutrophils % Lymphocytes % (Manual) Lymphocytes # (Manual) POC ABG pH POC ABG pCO2 POC ABG pO2 Sodium Chloride Carbon Dioxide BUN Creatinine Glucose POC Glucose 200 H Calcium Total Protein Albumin Crossmatch See Detail 03/30/16 03/30/16 03/30/16 05:15 05:56 11:46 RBC Hgb Hct MCV MCH RDW Plt Count [place] % (Auto) Lymph # Seg Neutrophils % Lymphocytes % (Manual) Lymphocytes # (Manual) POC ABG pH POC ABG pCO2 POC ABG pO2 Sodium Chloride Carbon Dioxide BUN Creatinine Glucose 144 H POC Glucose 141 H 167 H Calcium 7.6 L Total Protein Albumin Crossmatch 03/30/16 03/30/16 03/31/16 18:17 23:37 05:25 RBC Hgb Hct MCV MCH RDW Plt Count [place] % (Auto) Lymph # Seg Neutrophils % Lymphocytes % (Manual) Lymphocytes # (Manual) POC ABG pH POC ABG pCO2 POC ABG pO2 Sodium Chloride Carbon Dioxide BUN Creatinine Glucose POC Glucose 190 H 266 H 222 H Calcium Total Protein Albumin Crossmatch 03/31/16 03/31/16 03/31/16 06:30 06:30 12:05 RBC 2.38 L Hgb 7.7 L Hct 23.0 L MCV MCH RDW Plt Count [place] % (Auto) Lymph # Seg Neutrophils % Lymphocytes % (Manual) Lymphocytes # (Manual) POC ABG pH POC ABG pCO2 POC ABG pO2 Sodium Chloride Carbon Dioxide BUN Creatinine Glucose 193 H POC Glucose 204 H Calcium 8.1 L Total Protein Albumin Crossmatch 03/31/16 03/31/16 04/01/16 18:10 23:42 05:24 RBC Hgb Hct MCV MCH RDW Plt Count [place] % (Auto) Lymph # Seg Neutrophils % Lymphocytes % (Manual) Lymphocytes # (Manual) POC ABG pH 7.465 H POC ABG pCO2 33.2 L POC ABG pO2 Sodium Chloride Carbon Dioxide BUN Creatinine Glucose POC Glucose 181 H 203 H Calcium Total Protein Albumin Crossmatch 04/01/16 04/01/16 04/01/16 05:54 11:21 17:50 RBC Hgb Hct MCV MCH RDW Plt Count [place] % (Auto) Lymph # Seg Neutrophils % Lymphocytes % (Manual) Lymphocytes # (Manual) POC ABG pH POC ABG pCO2 POC ABG pO2 Sodium Chloride Carbon Dioxide BUN Creatinine Glucose POC Glucose 218 H 173 H 206 H Calcium Total Protein Albumin Crossmatch 04/01/16 04/02/16 04/02/16 22:02 00:38 04:37 RBC 2.59 L Hgb 8.2 L Hct 24.7 L MCV MCH RDW Plt Count [place] % (Auto) Lymph # Seg Neutrophils % Lymphocytes % (Manual) Lymphocytes # (Manual) POC ABG pH POC ABG pCO2 POC ABG pO2 Sodium Chloride Carbon Dioxide BUN Creatinine Glucose POC Glucose 172 H 201 H Calcium Total Protein Albumin Crossmatch 04/02/16 04/02/16 04/02/16 04:37 11:21 17:23 RBC Hgb Hct MCV MCH RDW Plt Count [place] % (Auto) Lymph # Seg Neutrophils % Lymphocytes % (Manual) Lymphocytes # (Manual) POC ABG pH POC ABG pCO2 POC ABG pO2 Sodium Chloride Carbon Dioxide BUN Creatinine Glucose 206 H POC Glucose 162 H 143 H Calcium Total Protein Albumin Crossmatch 04/03/16 04/03/16 00:39 06:25 RBC Hgb Hct MCV MCH RDW Plt Count [place] % (Auto) Lymph # Seg Neutrophils % Lymphocytes % (Manual) Lymphocytes # (Manual) POC ABG pH POC ABG pCO2 POC ABG pO2 Sodium Chloride Carbon Dioxide BUN Creatinine Glucose POC Glucose 215 H 113 H Calcium Total Protein Albumin Crossmatch
[2016-04-03] MEDS: NEURONTIN PO SCH ×3 (11:00→22:57)
[2016-04-03] MEDS: PLAVIX PO SCH (11:01)
[2016-04-03] MEDS: SENOKOT S PO SCH ×2 (11:24→22:58)
[2016-04-03] MEDS: APRESOLINE IV PRN ×2 (11:32→23:03)
[2016-04-03] MEDS: D5/0.45NS 1,000 ML IV SCH (17:25)
[2016-04-04 00:47] LABS: ISTAT Base Excess -6; ISTAT HCO3 20.8; ISTAT PCO2 46.3 (35-45); ISTAT PH 7.261 (7.35-7.45); ISTAT PO2 84 (80-105); ISTAT SO2 94; ISTAT TCO2 22
[2016-04-04] MEDS: XALATAN 0.005% OU SCH ×2 (00:50→21:57)
[2016-04-04] MEDS: NOVOLOG SUB-Q SCH ×4 (00:50→18:12)
--- NOTE | 2016-04-04 00:52 | XRay Report ---
FINAL REPORT EXAM: XR CHEST 1V AP HISTORY: SOB TECHNIQUE: Single-view chest PRIORS: None. FINDINGS: There is a right PICC line coursing to the level of the subclavian vein. Interlobular septal lines are seen along the lateral margin of the right lung. There is a nodular density projecting over the right lung base that measures approximately 19 millimeters. Hazy opacity is seen over the lung bases. There is patchy opacity in the upper lobes. Heart size is within normal limits. No acute osseous abnormality is identified. IMPRESSION: 1. Right PICC line is noted coursing to the level of the right subclavian vein. There are currently no studies available for direct comparison. 2. Hazy opacity is noted in the lung bases. This could be secondary to overlying soft tissue, possibility of edema and or infection is not excluded. Patchy opacity in the upper lobes could be related to the same process. 3. Interlobular septal lines are seen along the lateral margin of right lung which suggests interstitial edema. 4. Possible nodule in the right lung base. A follow-up chest radiograph can be obtained to assess for stability or resolution. This can be further assessed with CT if indicated.
[2016-04-04] MEDS: DUONEB 0.5 MG-3 MG/3 ML SOLN IH SCH ×4 (01:18→20:07)
--- NOTE | 2016-04-04 01:21 | Event Note ---
Date: 04/04/16 [facility] regarding labored respirations. Patient was recently transferred from ICU yesterday afternoon. Nursing reported patient developed labored respirations this past evening. ABG obtained which revealed pH 7.26 PCO2 46.3 and PO2 of 84. Patient is placed on BiPAP. Patient's respirations are more comfortable. We will obtain an ABG and approximately 2 hours. Follow-up chest x-ray.
[2016-04-04 03:43] LABS: ISTAT Base Excess -1; ISTAT HCO3 23.4; ISTAT PCO2 34.2 (35-45); ISTAT PH 7.443 (7.35-7.45); ISTAT PO2 136 (80-105); ISTAT SO2 99; ISTAT TCO2 24
[2016-04-04] MEDS: HEPARIN SUB-Q SCH ×3 (05:37→21:58)
[2016-04-04] MEDS: D5/0.45NS 1,000 ML IV SCH ×2 (05:43→18:00)
[2016-04-04] MEDS: CATAPRES PO SCH ×3 (05:43→21:56)
[2016-04-04 08:08] LABS: Hematocrit 26.3 % (30.3-42.9); Hemoglobin 8.9 gm/dl (10.1-14.3); Mean Corpuscular HGB Conc 34 % (30-34); Mean Corpuscular Hemoglobin 32 pg (28-32); Mean Corpuscular Volume 94 fl (79-97); Platelet Count 395 K/mm3 (140-440); Red Cell Distribution Width 14.2 % (13.2-15.2); White Blood Count 9.1 K/mm3 (4.5-11.0)
[2016-04-04 08:22] LABS: Anion Gap TNR mmol/L; BUN/Creatinine Ratio TNR; Blood Urea Nitrogen TNR mg/dL (7-17); Calcium TNR mg/dL (8.4-10.2); Carbon Dioxide TNR mmol/L (22-30); Chloride TNR mmol/L (98-107); Glucose TNR mg/dL (65-100); Potassium TNR mmol/L (3.6-5.0); Sodium TNR mmol/L (137-145)
[2016-04-04] MEDS: NEURONTIN PO SCH ×3 (08:28→21:56)
[2016-04-04] MEDS: SENOKOT S PO SCH ×2 (10:30→21:58)
[2016-04-04] MEDS: PEPCID IV SCH ×2 (10:30→21:58)
[2016-04-04] MEDS: PLAVIX PO SCH (10:30)
[2016-04-04 11:23] LABS: Anion Gap 16 mmol/L; BUN/Creatinine Ratio 13.75; Blood Urea Nitrogen 11 mg/dL (7-17); Calcium 8.5 mg/dL (8.4-10.2); Carbon Dioxide 25 mmol/L (22-30); Chloride 106.1 mmol/L (98-107); Glucose 191 mg/dL (65-100); Sodium 144 mmol/L (137-145)
[2016-04-04 11:36] LABS: Potassium 2.9 mmol/L (3.6-5.0)
--- NOTE | 2016-04-04 13:12 | Progress Note ---
Assessment and Plan Assessment and plan: Acute respiratory failure due to COPD exacerbation. Extubated 04/02/16. Less SOB. She feels better. Continue nebulizers, IV steroids,Pulm following. --Acute exacerbation of COPD Continue oxygen support, nebulizers, IV steroids IV antibiotics inhalation steroids and supportive care Anemia. Hgb 8.9 .She is s/p 1 Unit PRBC transfusion. Stool occult blood negative x 2 Acute on chronic kidney disease, resolved. Was secondary to ATN. Creatinine 0.8 . Encephalopathy /Opiate overdose; accidental. Hypotension/shock, Resolved, off pressors Hypernatremia. This is resolved. Hypokalemia. Replace iv. She is NPO SIRS; Metabolic acidosis secondary to acute renal failure, now res Dysphagia. She failed swallow eval. Dobhoff recommended but she refused. Will repeat swallow evaluation. DVT prophylaxis; with Lovenox, FULL CODE STATUS -- History Interval history: Patient with acute respiratory failure, Extubated 04/02/16 and transferred to Medical floor, says she wants to eat, but failed swallow screen, less shortness of breath Hospitalist Physical - Physical exam Narrative exam: Gen: Not in acute distress,obese HEENT: extubated Neck: No JVD Lungs: Lungs decreased BS, no crackles. No wheeze Heart:S1 and S2 reg, no murmurs,rubs or gallop Abd: soft, Non-tender, non-distended, Normal bowel sounds Ext: No edema, no clubbing , no cyanosis Neuro: awake,alert,oriented x 3 - Constitutional Vitals: Temp Pulse Resp BP Pulse Ox 98.5 F 99 H 20 139/61 100 04/04/16 12:00 04/04/16 12:00 04/04/16 12:00 04/04/16 12:00 04/04/16 08:17 General appearance: Present: no acute distress, well-nourished, obese, other ( intubated on ventilatory support) Results - Labs CBC & Chem 7: 04/04/16 07:12 04/04/16 09:10 Labs: Laboratory Last Values WBC 9.1 K/mm3 (4.5-11.0) 04/04/16 07:12 RBC 2.80 M/mm3 (3.65-5.03) L 04/04/16 07:12 Hgb 8.9 gm/dl (10.1-14.3) L 04/04/16 07:12 Hct 26.3 % (30.3-42.9) L 04/04/16 07:12 MCV 94 fl (79-97) 04/04/16 07:12 MCH 32 pg (28-32) 04/04/16 07:12 MCHC 34 % (30-34) 04/04/16 07:12 RDW 14.2 % (13.2-15.2) 04/04/16 07:12 Plt Count 395 K/mm3 (140-440) 04/04/16 07:12 Lymph % (Auto) 22.9 % (13.4-35.0) 03/27/16 06:00 [place] % (Auto) 12.5 % (0.0-7.3) H 03/27/16 06:00 Eos % (Auto) 1.1 % (0.0-4.3) 03/27/16 06:00 Baso % (Auto) 0.4 % (0.0-1.8) 03/27/16 06:00 Lymph # 1.4 K/mm3 (1.2-5.4) 03/27/16 06:00 Dixie # 0.8 K/mm3 (0.0-0.8) 03/27/16 06:00 Eos # 0.1 K/mm3 (0.0-0.4) 03/27/16 06:00 Baso # 0.0 K/mm3 (0.0-0.1) 03/27/16 06:00 Add Manual Diff Complete 03/25/16 04:30 Total Counted 100 03/25/16 04:30 Seg Neutrophils % 63.1 % (40.0-70.0) 03/27/16 06:00 Seg Neuts % (Manual) 64.0 % (40.0-70.0) 03/25/16 04:30 Band Neutrophils % 18.0 % 03/25/16 04:30 Lymphocytes % (Manual) 10.0 % (13.4-35.0) L 03/25/16 04:30 Reactive Lymphs % (Man) 0 % 03/25/16 04:30 Monocytes % (Manual) 7.0 % (0.0-7.3) 03/25/16 04:30 Eosinophils % (Manual) 1.0 % (0.0-4.3) 03/25/16 04:30 Basophils % (Manual) 0 % (0.0-1.8) 03/25/16 04:30 Metamyelocytes % 0 % 03/25/16 04:30 Myelocytes % 0 % 03/25/16 04:30 Promyelocytes % 0 % 03/25/16 04:30 Blast Cells % 0 % 03/25/16 04:30 Nucleated RBC % Not Reportable 03/25/16 04:30 Seg Neutrophils # 3.9 K/mm3 (1.8-7.7) 03/27/16 06:00 Seg Neutrophils # Man 4.7 K/mm3 (1.8-7.7) 03/25/16 04:30 Band Neutrophils # 1.3 K/mm3 03/25/16 04:30 Lymphocytes # (Manual) 0.7 K/mm3 (1.2-5.4) L 03/25/16 04:30 Abs React Lymphs (Man) 0.0 K/mm3 03/25/16 04:30 Monocytes # (Manual) 0.5 K/mm3 (0.0-0.8) 03/25/16 04:30 Eosinophils # (Manual) 0.1 K/mm3 (0.0-0.4) 03/25/16 04:30 Basophils # (Manual) 0.0 K/mm3 (0.0-0.1) 03/25/16 04:30 Metamyelocytes # 0.0 K/mm3 03/25/16 04:30 Myelocytes # 0.0 K/mm3 03/25/16 04:30 Promyelocytes # 0.0 K/mm3 03/25/16 04:30 Blast Cells # 0.0 K/mm3 03/25/16 04:30 WBC Morphology Not Reportable 03/25/16 04:30 Hypersegmented Neuts Not Reportable 03/25/16 04:30 Hyposegmented Neuts Not Reportable 03/25/16 04:30 Hypogranular Neuts Not Reportable 03/25/16 04:30 Smudge Cells Not Reportable 03/25/16 04:30 Toxic Granulation Not Reportable 03/25/16 04:30 Toxic Vacuolation Not Reportable 03/25/16 04:30 Dohle Bodies Not Reportable 03/25/16 04:30 Pelger-Huet Anomaly Not Reportable 03/25/16 04:30 Sameer Rods Not Reportable 03/25/16 04:30 Platelet Estimate Appears decreased 03/25/16 04:30 Clumped Platelets Not Reportable 03/25/16 04:30 Plt Clumps, EDTA Not Reportable 03/25/16 04:30 Large Platelets Not Reportable 03/25/16 04:30 Giant Platelets Not Reportable 03/25/16 04:30 Platelet Satelliting Not Reportable 03/25/16 04:30 Plt Morphology Comment Not Reportable 03/25/16 04:30 RBC Morphology Not Reportable 03/25/16 04:30 Dimorphic RBCs Not Reportable 03/25/16 04:30 Polychromasia Not Reportable 03/25/16 04:30 Hypochromasia Not Reportable 03/25/16 04:30 Poikilocytosis Few 03/25/16 04:30 Anisocytosis Not Reportable 03/25/16 04:30 Microcytosis Not Reportable 03/25/16 04:30 Macrocytosis Not Reportable 03/25/16 04:30 Spherocytes Not Reportable 03/25/16 04:30 Pappenheimer Bodies Not Reportable 03/25/16 04:30 Sickle Cells Not Reportable 03/25/16 04:30 Target Cells Not Reportable 03/25/16 04:30 Tear Drop Cells Not Reportable 03/25/16 04:30 Ovalocytes Few 03/25/16 04:30 Helmet Cells Not Reportable 03/25/16 04:30 Steve-[place] Bodies Not Reportable 03/25/16 04:30 [place] Rings Not Reportable 03/25/16 04:30 Ryan Cells Not Reportable 03/25/16 04:30 Bite Cells Not Reportable 03/25/16 04:30 Crenated Cell Not Reportable 03/25/16 04:30 Elliptocytes Not Reportable 03/25/16 04:30 Acanthocytes (Spur) Not Reportable 03/25/16 04:30 Rouleaux Not Reportable 03/25/16 04:30 Hemoglobin C Crystals Not Reportable 03/25/16 04:30 Schistocytes Not Reportable 03/25/16 04:30 Malaria parasites Not Reportable 03/25/16 04:30 Konstantin Bodies Not Reportable 03/25/16 04:30 Hem Pathologist Commnt No 03/25/16 04:30 PT 16.8 Sec. (12.2-14.9) H 03/23/16 18:56 INR 1.37 (0.87-1.13) H 03/23/16 18:56 APTT 28.7 Sec. (24.2-36.6) 03/23/16 18:56 POC ABG pH 7.443 (7.35-7.45) 04/04/16 03:28 POC ABG pCO2 34.2 (35-45) L 04/04/16 03:28 POC ABG pO2 136 (80-105) H 04/04/16 03:28 POC ABG HCO3 23.4 04/04/16 03:28 POC ABG Total CO2 24 04/04/16 03:28 POC ABG O2 Sat 99 04/04/16 03:28 POC ABG Base Excess -1 04/04/16 03:28 FiO2 50 % 04/04/16 03:28 Sodium 144 mmol/L (137-145) 04/04/16 09:10 Potassium 2.9 mmol/L (3.6-5.0) L* 04/04/16 09:10 Chloride 106.1 mmol/L (98-107) 04/04/16 09:10 Carbon Dioxide 25 mmol/L (22-30) 04/04/16 09:10 Anion Gap 16 mmol/L 04/04/16 09:10 BUN 11 mg/dL (7-17) 04/04/16 09:10 Creatinine 0.8 mg/dL (0.7-1.2) 04/04/16 09:10 Estimated GFR > 60 ml/min 04/04/16 09:10 BUN/Creatinine Ratio 13.75 % 04/04/16 09:10 Glucose 191 mg/dL (65-100) H 04/04/16 09:10 POC Glucose 167 (70-105) H 04/04/16 11:33 Lactic Acid 1.4 mmol/L (0.7-2.0) 03/23/16 20:10 Calcium 8.5 mg/dL (8.4-10.2) 04/04/16 09:10 Phosphorus 3.8 mg/dL (2.5-4.5) 03/25/16 04:30 Magnesium 2.2 mg/dL (1.7-2.3) 03/28/16 05:30 Total Bilirubin 0.2 mg/dL (0.1-1.2) 03/25/16 04:30 Direct Bilirubin < 0.2 mg/dL (0-0.2) 03/25/16 04:30 Indirect Bilirubin 0.0 mg/dL 03/25/16 04:30 AST 20 units/L (5-40) 03/25/16 04:30 ALT 12 units/L (7-56) 03/25/16 04:30 Alkaline Phosphatase 86 units/L (35-129) 03/25/16 04:30 Total Protein 5.0 g/dL (6.3-8.2) L D 03/25/16 04:30 Albumin 2.4 g/dL (3.9-5) L 03/25/16 04:30 Albumin/Globulin Ratio 0.9 % 03/25/16 04:30 TSH 0.264 mlU/mL (0.270-4.200) L 03/23/16 17:33 Urine Color Yellow (Yellow) 03/23/16 20:13 Urine Turbidity Slightly-cloudy (Clear) 03/23/16 20:13 Urine pH 5.0 (5.0-7.0) 03/23/16 20:13 Ur Specific [place] 1.016 (1.003-1.030) 03/23/16 20:13 Urine Protein 100 mg/dl mg/dL (Negative) 03/23/16 20:13 Urine Glucose (UA) Neg mg/dL (Negative) 03/23/16 20:13 Urine Ketones Neg mg/dL (Negative) 03/23/16 20:13 Urine Blood Mod (Negative) 03/23/16 20:13 Urine Nitrite Neg (Negative) 03/23/16 20:13 Urine Bilirubin Neg (Negative) 03/23/16 20:13 Urine Urobilinogen < 2.0 mg/dL (<2.0) 03/23/16 20:13 Ur Leukocyte Esterase Neg (Negative) 03/23/16 20:13 Urine WBC (Auto) < 1.0 /HPF (0.0-6.0) 03/23/16 20:13 Urine RBC (Auto) < 1.0 /HPF (0.0-6.0) 03/23/16 20:13 U Epithel Cells (Auto) < 1.0 /HPF (0-13.0) 03/23/16 20:13 Urine Mucus Few /HPF 03/23/16 20:13 Salicylates 0.6 mg/dL (2.8-20.0) L 03/23/16 17:33 Urine Opiates Screen Presumptive positive 03/23/16 20:13 Urine Methadone Screen Presumptive negative 03/23/16 20:13 Acetaminophen < 15.0 ug/mL (10.0-30.0) 03/23/16 17:33 Ur Barbiturates Screen Presumptive negative 03/23/16 20:13 Ur Phencyclidine Scrn Presumptive negative 03/23/16 20:13 Ur Amphetamines Screen Presumptive negative 03/23/16 20:13 U Benzodiazepines Scrn Presumptive negative 03/23/16 20:13 Urine Cocaine Screen Presumptive negative 03/23/16 20:13 U Marijuana (THC) Screen Presumptive negative 03/23/16 20:13 Drugs of Abuse Note Disclamer 03/23/16 20:13 Plasma/Serum Alcohol < 0.01 gm% (0-0.07) 03/23/16 17:45 Blood Type B NEGATIVE 03/29/16 12:30 Antibody Screen Negative 03/29/16 12:30 Crossmatch See Detail 03/29/16 12:30
[2016-04-04] MEDS: KCL 10MEQ/100ML 100 ML IV SCH ×3 (14:14→16:45)
[2016-04-04] MEDS ORDERED: NACL 0.9% 500 ML 500 ML IV ONE (14:56)
--- NOTE | 2016-04-04 17:40 | Progress Note ---
Assessment and Plan This is 65 year old white female admitted with drug overdose, altered mental status and hypotension.Patient intubated and placed on mechanical ventilation. Patient still hypotensive. Patient given fluid bolus x3. Patient B/P still running low. May have to vasopressors, if blood pressure does not come up.Patient has history of hypertension, chronic kidney disease , DM and COPD.Patient has history of smoking. Current smoking status not known. No history of alcohol or drug abuse. Allergic to sulfa.Drug screen positive for Opiates. I spent critical care time of 1 hour on this patient to get history, review the chart, review chest xray and Lab work, talking to the nursing and resiratory staff and work out plan of treatment. Talk to the patients friend who called 911 and also who helped her to bring her to the emergency room. 03/25/16 Patient agitating. Still on mechanical ventilation. Patient blood gases showing severe metabolic acidosis. Patient given Ampule of bicarb and repeated blood gases, patient still acidotic.Starting on Bicarb drip. Because of severe acidosis, patient is not candidate for extubation. In view of her agitation starting on fentynyl drip. 04/04/16 Patient extubated and placed on non invasive ventilation and transfered to medical floor. Patient sleeping at this time on BIPAP 20/6, rate 20, FIO2 40%.Patient tolerating present BIPAP settings good. O2 satuaration 100%. - Patient Problems (1) Respiratory failure Current Visit: Yes Status: Acute Qualifiers: Chronicity: acute Respiratory failure complication: hypoxia Qualified Code(s): J96.01 - Acute respiratory failure with hypoxia Plan to address problem: Patient is on mechanical ventilation , Assist control rate 20, Tidal volume 500 , FIO2 35%, PEEP 5 Albuterol/atrovent aerosol treatments. Continue S/C Heparin. Continue Famotidine. 04/04/16 Patient extubated and placed on noninvasive ventilator. on BIPAP 20/6, rate 20, FIO2 40%. Albuterol/atrovent aerosol treatments q 6 hours. Continue S/C Heparin. Continue famotidine. (2) Accidental drug overdose Current Visit: No Status: Acute Plan to address problem: Patient is on I/V fluids normal saline. (3) Acute renal failure Current Visit: Yes Status: Acute Qualifiers: Acute renal failure type: unspecified Qualified Code(s): N17.9 - Acute kidney failure, unspecified Plan to address problem: Recommend to consult Nephrology. (4) COPD (chronic obstructive pulmonary disease) Current Visit: No Status: Chronic Plan to address problem: Albuterol/atrovent aerosol treatments q 6 hours. (5) Hypotension Current Visit: Yes Status: Acute Plan to address problem: Patient receiving Fluid Boluses. If blood pressure does not come up may start vasopressors. 03/25/16. Patients blood pressure improved. Patient off the pressors. 04/04/16 Improved. (6) Metabolic acidosis Current Visit: Yes Status: Acute Plan to address problem: Obtaining Lactate leve. Supplementing Bicarb. 03/25/16 Patient still acidotic. Starting Bicarb drip. 04/04/16 Improved. Subjective Date of service: 04/04/16 Principal diagnosis: Acute Hypoxemic Respiratory Failure Interval history: Patient extubated and placed on non invasive ventilation and transfered to medical floor. Patient sleeping at this time on BIPAP 20/6, rate 20, FIO2 40%.Patient tolerating present BIPAP settings good. O2 satuaration 100%. Objective Vital Signs - 12hr 04/04/16 04/04/16 04/04/16 07:45 08:08 08:17 Temperature 99.2 F Pulse Rate [ 90 Anterior Bilateral Throughout] Pulse Rate [ 90 Anterior Bilateral] Pulse Rate [ 91 H From Monitor] Respiratory 38 H Rate Respiratory 20 Rate [Anterior Bilateral Throughout] Respiratory 20 Rate [Anterior Bilateral] Blood Pressure 129/70 [Left Arm] O2 Sat by Pulse 99 100 Oximetry 04/04/16 04/04/16 04/04/16 08:25 12:00 14:50 Temperature 98.5 F Pulse Rate [ 88 Anterior Bilateral Throughout] Pulse Rate [ 88 Anterior Bilateral] Pulse Rate [ 99 H From Monitor] Respiratory 20 Rate Respiratory 20 Rate [Anterior Bilateral Throughout] Respiratory 20 Rate [Anterior Bilateral] Blood Pressure 139/61 [Left Arm] O2 Sat by Pulse 95 Oximetry 04/04/16 04/04/16 14:57 15:07 Temperature Pulse Rate [ 103 H 102 H Anterior Bilateral Throughout] Pulse Rate [ 103 H 102 H Anterior Bilateral] Pulse Rate [ From Monitor] Respiratory Rate Respiratory 23 24 Rate [Anterior Bilateral Throughout] Respiratory 24 24 Rate [Anterior Bilateral] Blood Pressure [Left Arm] O2 Sat by Pulse Oximetry Constitutional: alert Eyes: non-icteric ENT: oropharynx moist Neck: supple, no JVD Effort: normal Ascultation: Bilateral: diminished breath sounds, rhonchi (base) Cardiovascular: regular rate and rhythm Gastrointestinal: normoactive bowel sounds, soft, non-tender, non-distended Integumentary: normal Extremities: no cyanosis, no edema, pink and warm, pulses normal, no ischemia or petechiae Neurologic: normal mental status, non-focal exam, pupils equal and round, motor strength normal and Psychiatric: mood appropriate, affect normal CBC and BMP: 04/04/16 07:12 04/04/16 09:10 ABG, PT/INR, D-dimer: ABG POC ABG pH 7.443 (7.35-7.45) 04/04/16 03:28 POC ABG pCO2 34.2 (35-45) L 04/04/16 03:28 POC ABG pO2 136 (80-105) H 04/04/16 03:28 POC ABG HCO3 23.4 04/04/16 03:28 POC ABG Total CO2 24 04/04/16 03:28 POC ABG O2 Sat 99 04/04/16 03:28 PT/INR, D-dimer PT 16.8 Sec. (12.2-14.9) H 03/23/16 18:56 INR 1.37 (0.87-1.13) H 03/23/16 18:56 Abnormal lab findings: Abnormal Labs 03/24/16 03/24/16 03/24/16 00:10 05:04 05:12 RBC 2.42 L Hgb 7.8 L Hct 23.4 L MCV 99 H MCH RDW Plt Count 139 L Moody % (Auto) 10.4 H Lymph # 0.9 L Seg Neutrophils % 71.0 H Lymphocytes % (Manual) Lymphocytes # (Manual) POC ABG pH 7.279 L POC ABG pCO2 33.6 L POC ABG pO2 112 H Sodium Potassium Chloride Carbon Dioxide BUN Creatinine Glucose POC Glucose 144 H Calcium Total Protein Albumin Crossmatch 03/24/16 03/24/16 03/25/16 05:12 05:50 04:30 RBC 2.55 L Hgb 8.0 L Hct 25.0 L MCV 98 H MCH RDW 15.6 H Plt Count [place] % (Auto) Lymph # Seg Neutrophils % Lymphocytes % (Manual) 10.0 L Lymphocytes # (Manual) 0.7 L POC ABG pH POC ABG pCO2 POC ABG pO2 Sodium Potassium Chloride 112.3 H Carbon Dioxide 17 L BUN 51 H Creatinine 2.3 H Glucose POC Glucose 107 H Calcium 7.0 L Total Protein Albumin Crossmatch 03/25/16 03/25/16 03/25/16 04:30 04:58 10:17 RBC Hgb Hct MCV MCH RDW Plt Count [place] % (Auto) Lymph # Seg Neutrophils % Lymphocytes % (Manual) Lymphocytes # (Manual) POC ABG pH 7.285 L 7.261 L POC ABG pCO2 27.2 L 28.6 L POC ABG pO2 112 H Sodium 148 H Potassium Chloride 116.9 H Carbon Dioxide 14 L BUN 38 H Creatinine 1.7 H Glucose POC Glucose Calcium 7.1 L Total Protein 5.0 L D Albumin 2.4 L Crossmatch 03/26/16 03/26/16 03/26/16 05:30 05:30 05:32 RBC 2.37 L Hgb 7.7 L Hct 23.0 L MCV MCH 33 H RDW Plt Count 134 L [place] % (Auto) 15.2 H Lymph # 0.9 L Seg Neutrophils % Lymphocytes % (Manual) Lymphocytes # (Manual) POC ABG pH POC ABG pCO2 31.8 L POC ABG pO2 Sodium 147 H Potassium Chloride 112.3 H Carbon Dioxide 21 L D BUN 20 H Creatinine 1.3 H Glucose 121 H POC Glucose Calcium 7.6 L Total Protein Albumin Crossmatch 03/26/16 03/26/16 03/26/16 06:05 11:46 17:24 RBC Hgb Hct MCV MCH RDW Plt Count [place] % (Auto) Lymph # Seg Neutrophils % Lymphocytes % (Manual) Lymphocytes # (Manual) POC ABG pH POC ABG pCO2 POC ABG pO2 Sodium Potassium Chloride Carbon Dioxide BUN Creatinine Glucose POC Glucose 115 H 146 H 134 H Calcium Total Protein Albumin Crossmatch 03/26/16 03/27/16 03/27/16 23:41 06:00 06:00 RBC 2.46 L Hgb 7.8 L Hct 23.7 L MCV MCH RDW Plt Count 138 L [place] % (Auto) 12.5 H Lymph # Seg Neutrophils % Lymphocytes % (Manual) Lymphocytes # (Manual) POC ABG pH POC ABG pCO2 POC ABG pO2 Sodium Potassium Chloride Carbon Dioxide BUN Creatinine Glucose POC Glucose 155 H Calcium 7.6 L Total Protein Albumin Crossmatch 03/27/16 03/27/16 03/27/16 11:25 17:37 18:01 RBC Hgb Hct MCV MCH RDW Plt Count [place] % (Auto) Lymph # Seg Neutrophils % Lymphocytes % (Manual) Lymphocytes # (Manual) POC ABG pH POC ABG pCO2 POC ABG pO2 Sodium Potassium Chloride Carbon Dioxide BUN Creatinine Glucose POC Glucose 163 H 173 H 171 H Calcium Total Protein Albumin Crossmatch 03/27/16 03/28/16 03/28/16 23:51 04:53 05:47 RBC Hgb Hct MCV MCH RDW Plt Count [place] % (Auto) Lymph # Seg Neutrophils % Lymphocytes % (Manual) Lymphocytes # (Manual) POC ABG pH POC ABG pCO2 34.9 L POC ABG pO2 Sodium Potassium Chloride Carbon Dioxide BUN Creatinine Glucose POC Glucose 136 H 164 H Calcium Total Protein Albumin Crossmatch 03/28/16 03/28/16 03/29/16 11:54 17:33 00:11 RBC Hgb Hct MCV MCH RDW Plt Count [place] % (Auto) Lymph # Seg Neutrophils % Lymphocytes % (Manual) Lymphocytes # (Manual) POC ABG pH POC ABG pCO2 POC ABG pO2 Sodium Potassium Chloride Carbon Dioxide BUN Creatinine Glucose POC Glucose 129 H 148 H 154 H Calcium Total Protein Albumin Crossmatch 03/29/16 03/29/16 03/29/16 04:43 05:00 05:00 RBC 2.07 L Hgb 6.7 L Hct 20.2 L MCV MCH RDW Plt Count 121 L [place] % (Auto) Lymph # Seg Neutrophils % Lymphocytes % (Manual) Lymphocytes # (Manual) POC ABG pH 7.471 H POC ABG pCO2 POC ABG pO2 Sodium 149 H Potassium Chloride 111.2 H Carbon Dioxide BUN Creatinine 1.3 H Glucose 110 H POC Glucose Calcium 7.6 L Total Protein Albumin Crossmatch 03/29/16 03/29/16 03/29/16 05:35 09:30 11:40 RBC Hgb 6.5 L Hct 20.0 L MCV MCH RDW Plt Count [place] % (Auto) Lymph # Seg Neutrophils % Lymphocytes % (Manual) Lymphocytes # (Manual) POC ABG pH POC ABG pCO2 POC ABG pO2 Sodium Potassium Chloride Carbon Dioxide BUN Creatinine Glucose POC Glucose 108 H 141 H Calcium Total Protein Albumin Crossmatch 03/29/16 03/29/16 03/30/16 12:30 17:45 05:15 RBC 2.41 L Hgb 7.7 L Hct 23.1 L MCV MCH RDW 15.3 H Plt Count 131 L [place] % (Auto) Lymph # Seg Neutrophils % Lymphocytes % (Manual) Lymphocytes # (Manual) POC ABG pH POC ABG pCO2 POC ABG pO2 Sodium Potassium Chloride Carbon Dioxide BUN Creatinine Glucose POC Glucose 200 H Calcium Total Protein Albumin Crossmatch See Detail 03/30/16 03/30/16 03/30/16 05:15 05:56 11:46 RBC Hgb Hct MCV MCH RDW Plt Count [place] % (Auto) Lymph # Seg Neutrophils % Lymphocytes % (Manual) Lymphocytes # (Manual) POC ABG pH POC ABG pCO2 POC ABG pO2 Sodium Potassium Chloride Carbon Dioxide BUN Creatinine Glucose 144 H POC Glucose 141 H 167 H Calcium 7.6 L Total Protein Albumin Crossmatch 03/30/16 03/30/16 03/31/16 18:17 23:37 05:25 RBC Hgb Hct MCV MCH RDW Plt Count [place] % (Auto) Lymph # Seg Neutrophils % Lymphocytes % (Manual) Lymphocytes # (Manual) POC ABG pH POC ABG pCO2 POC ABG pO2 Sodium Potassium Chloride Carbon Dioxide BUN Creatinine Glucose POC Glucose 190 H 266 H 222 H Calcium Total Protein Albumin Crossmatch 03/31/16 03/31/16 03/31/16 06:30 06:30 12:05 RBC 2.38 L Hgb 7.7 L Hct 23.0 L MCV MCH RDW Plt Count [place] % (Auto) Lymph # Seg Neutrophils % Lymphocytes % (Manual) Lymphocytes # (Manual) POC ABG pH POC ABG pCO2 POC ABG pO2 Sodium Potassium Chloride Carbon Dioxide BUN Creatinine Glucose 193 H POC Glucose 204 H Calcium 8.1 L Total Protein Albumin Crossmatch 03/31/16 03/31/16 04/01/16 18:10 23:42 05:24 RBC Hgb Hct MCV MCH RDW Plt Count [place] % (Auto) Lymph # Seg Neutrophils % Lymphocytes % (Manual) Lymphocytes # (Manual) POC ABG pH 7.465 H POC ABG pCO2 33.2 L POC ABG pO2 Sodium Potassium Chloride Carbon Dioxide BUN Creatinine Glucose POC Glucose 181 H 203 H Calcium Total Protein Albumin Crossmatch 04/01/16 04/01/16 04/01/16 05:54 11:21 17:50 RBC Hgb Hct MCV MCH RDW Plt Count [place] % (Auto) Lymph # Seg Neutrophils % Lymphocytes % (Manual) Lymphocytes # (Manual) POC ABG pH POC ABG pCO2 POC ABG pO2 Sodium Potassium Chloride Carbon Dioxide BUN Creatinine Glucose POC Glucose 218 H 173 H 206 H Calcium Total Protein Albumin Crossmatch 04/01/16 04/02/16 04/02/16 22:02 00:38 04:37 RBC 2.59 L Hgb 8.2 L Hct 24.7 L MCV MCH RDW Plt Count [place] % (Auto) Lymph # Seg Neutrophils % Lymphocytes % (Manual) Lymphocytes # (Manual) POC ABG pH POC ABG pCO2 POC ABG pO2 Sodium Potassium Chloride Carbon Dioxide BUN Creatinine Glucose POC Glucose 172 H 201 H Calcium Total Protein Albumin Crossmatch 04/02/16 04/02/16 04/02/16 04:37 11:21 17:23 RBC Hgb Hct MCV MCH RDW Plt Count [place] % (Auto) Lymph # Seg Neutrophils % Lymphocytes % (Manual) Lymphocytes # (Manual) POC ABG pH POC ABG pCO2 POC ABG pO2 Sodium Potassium Chloride Carbon Dioxide BUN Creatinine Glucose 206 H POC Glucose 162 H 143 H Calcium Total Protein Albumin Crossmatch 04/03/16 04/03/16 04/03/16 00:39 06:25 12:01 RBC Hgb Hct MCV MCH RDW Plt Count [place] % (Auto) Lymph # Seg Neutrophils % Lymphocytes % (Manual) Lymphocytes # (Manual) POC ABG pH POC ABG pCO2 POC ABG pO2 Sodium Potassium Chloride Carbon Dioxide BUN Creatinine Glucose POC Glucose 215 H 113 H 117 H Calcium Total Protein Albumin Crossmatch 04/03/16 04/03/16 04/04/16 17:39 21:01 00:20 RBC Hgb Hct MCV MCH RDW Plt Count [place] % (Auto) Lymph # Seg Neutrophils % Lymphocytes % (Manual) Lymphocytes # (Manual) POC ABG pH 7.261 L POC ABG pCO2 46.3 H POC ABG pO2 Sodium Potassium Chloride Carbon Dioxide BUN Creatinine Glucose POC Glucose 189 H 168 H Calcium Total Protein Albumin Crossmatch 04/04/16 04/04/16 04/04/16 03:28 06:15 07:12 RBC 2.80 L Hgb 8.9 L Hct 26.3 L MCV MCH RDW Plt Count [place] % (Auto) Lymph # Seg Neutrophils % Lymphocytes % (Manual) Lymphocytes # (Manual) POC ABG pH POC ABG pCO2 34.2 L POC ABG pO2 136 H Sodium Potassium Chloride Carbon Dioxide BUN Creatinine Glucose POC Glucose 248 H Calcium Total Protein Albumin Crossmatch 04/04/16 04/04/16 04/04/16 09:10 11:33 14:40 RBC Hgb Hct MCV MCH RDW Plt Count [place] % (Auto) Lymph # Seg Neutrophils % Lymphocytes % (Manual) Lymphocytes # (Manual) POC ABG pH POC ABG pCO2 POC ABG pO2 Sodium Potassium 2.9 L* Chloride Carbon Dioxide BUN Creatinine Glucose 191 H POC Glucose 167 H 352 H Calcium Total Protein Albumin Crossmatch 04/04/16 17:07 RBC Hgb Hct MCV MCH RDW Plt Count [place] % (Auto) Lymph # Seg Neutrophils % Lymphocytes % (Manual) Lymphocytes # (Manual) POC ABG pH POC ABG pCO2 POC ABG pO2 Sodium Potassium Chloride Carbon Dioxide BUN Creatinine Glucose POC Glucose 294 H Calcium Total Protein Albumin Crossmatch Chest x-ray: report reviewed (Hazyness left base.Possible nodule left loer lobe. ), image reviewed
[2016-04-05] MEDS: LEVEMIR SUB-Q SCH ×2 (00:20→23:00)
[2016-04-05] MEDS: CATAPRES PO SCH ×3 (05:08→22:34)
[2016-04-05] MEDS: HEPARIN SUB-Q SCH ×3 (05:12→22:35)
[2016-04-05 05:45] LABS: Hematocrit 26.4 % (30.3-42.9); Hemoglobin 8.6 gm/dl (10.1-14.3); Mean Corpuscular HGB Conc 33 % (30-34); Mean Corpuscular Hemoglobin 31 pg (28-32); Mean Corpuscular Volume 95 fl (79-97); Platelet Count 359 K/mm3 (140-440); Red Blood Count 2.78 M/mm3 (3.65-5.03); Red Cell Distribution Width 14.5 % (13.2-15.2); White Blood Count 6.6 K/mm3 (4.5-11.0)
[2016-04-05 05:58] LABS: BUN/Creatinine Ratio 14.44; Blood Urea Nitrogen 13 mg/dL (7-17); Calcium 8.2 mg/dL (8.4-10.2); Carbon Dioxide 21 mmol/L (22-30); Chloride 108.3 mmol/L (98-107); Glucose 199 mg/dL (65-100); Potassium 3.5 mmol/L (3.6-5.0); Sodium 145 mmol/L (137-145)
[2016-04-05 06:00] LABS: Anion Gap 19 mmol/L
[2016-04-05] MEDS: HALDOL IV PRN (07:06)
[2016-04-05] MEDS: DUONEB 0.5 MG-3 MG/3 ML SOLN IH SCH ×3 (08:25→20:20)
[2016-04-05] MEDS: PEPCID IV SCH ×2 (09:11→22:35)
[2016-04-05] MEDS: D5/0.45NS 1,000 ML IV SCH (09:13)
[2016-04-05] MEDS: NOVOLOG SUB-Q SCH ×4 (09:13→19:28)
[2016-04-05] MEDS: NEURONTIN PO SCH ×3 (09:19→22:35)
[2016-04-05] MEDS: PLAVIX PO SCH (09:20)
[2016-04-05] MEDS: SENOKOT S PO SCH ×2 (09:20→22:34)
--- NOTE | 2016-04-05 09:58 | Progress Note ---
Assessment and Plan - Patient Problems (1) Metabolic acidosis Current Visit: Yes Status: Acute Plan to address problem: - resolved - stopped bicarbonate supplementation (2) CKD (chronic kidney disease) Current Visit: No Status: Chronic Qualifiers: Chronic kidney disease stage: unspecified stage Qualified Code(s): N18.9 - Chronic kidney disease, unspecified Plan to address problem: - non oliguric - Serum creatinine WNL (3) Acute hypoxemic respiratory failure Current Visit: Yes Status: Acute Plan to address problem: - improved & extubated - continue aspiration precautions - continue bronchodilators and pulmonary toilet - wean oxygen for sats> 92% - get ABG now and if no significant critical values will give breaks off BIPAP (4) Altered mental status Current Visit: Yes Status: Acute Qualifiers: Altered mental status type: unspecified Qualified Code(s): R41.82 - Altered mental status, unspecified Plan to address problem: - continue prn haldol - continue seroquel after placing feeding tube - follow clinically (5) Anemia Current Visit: Yes Status: Acute Plan to address problem: - transfused 1 unit PRBC's this admission - anemia w/up - stool occult blood ordered - negative stool guaiac resulted - follow H&H (6) Discharge planning issues Current Visit: Yes Status: Acute Plan to address problem: - hopefully does not decompensate and end up back in ICU Subjective Date of service: 04/05/16 Principal diagnosis: Acute Hypoxemic Respiratory Failure Interval history: Seen and examined at bedside; 24 hour events reviewed; nursing and respiratory care staff consulted; no adverse overnight events reported to me; in bed with vest restraints; failed swallow evaluation but had been refusing NGT placement; on BIPAP; apparently not getting psych meds Objective Vital Signs - 12hr 04/05/16 04/05/16 04/05/16 00:00 04:13 05:08 Temperature 98.1 F Pulse Rate 93 H 79 Pulse Rate [ Anterior Bilateral Throughout] Pulse Rate [ Anterior Bilateral] Pulse Rate [ Apical] Pulse Rate [ 80 From Monitor] Respiratory 22 22 Rate Respiratory Rate [Anterior Bilateral Throughout] Respiratory Rate [Anterior Bilateral] Respiratory 28 H Rate [back] Blood Pressure 169/70 138/69 Blood Pressure 118/68 [Left Arm] O2 Sat by Pulse 100 Oximetry 04/05/16 04/05/16 04/05/16 08:10 08:25 08:40 Temperature 98 F Pulse Rate Pulse Rate [ 108 H Anterior Bilateral Throughout] Pulse Rate [ 108 H 112 H Anterior Bilateral] Pulse Rate [ 82 Apical] Pulse Rate [ From Monitor] Respiratory 22 Rate Respiratory 24 Rate [Anterior Bilateral Throughout] Respiratory 24 24 Rate [Anterior Bilateral] Respiratory Rate [back] Blood Pressure Blood Pressure 142/70 [Left Arm] O2 Sat by Pulse 95 Oximetry 04/05/16 04/05/16 08:44 08:49 Temperature Pulse Rate 122 H Pulse Rate [ Anterior Bilateral Throughout] Pulse Rate [ Anterior Bilateral] Pulse Rate [ Apical] Pulse Rate [ From Monitor] Respiratory 28 H Rate Respiratory Rate [Anterior Bilateral Throughout] Respiratory Rate [Anterior Bilateral] Respiratory Rate [back] Blood Pressure Blood Pressure [Left Arm] O2 Sat by Pulse 99 96 Oximetry Constitutional: appears uncomfortable, other (somnolent) Eyes: non-icteric ENT: oropharynx moist Neck: supple, no JVD Effort: mildly labored (but close to baseline) Ascultation: Bilateral: diminished breath sounds, rhonchi (base) Cardiovascular: regular rate and rhythm Gastrointestinal: normoactive bowel sounds, soft, non-tender, non-distended Integumentary: normal Extremities: no cyanosis, no edema, pink and warm, pulses normal, no ischemia or petechiae Neurologic: normal mental status, non-focal exam, pupils equal and round, motor strength normal and Psychiatric: mood appropriate, affect normal CBC and BMP: 04/05/16 05:20 04/05/16 05:20 ABG, PT/INR, D-dimer: ABG POC ABG pH 7.443 (7.35-7.45) 04/04/16 03:28 POC ABG pCO2 34.2 (35-45) L 04/04/16 03:28 POC ABG pO2 136 (80-105) H 04/04/16 03:28 POC ABG HCO3 23.4 04/04/16 03:28 POC ABG Total CO2 24 04/04/16 03:28 POC ABG O2 Sat 99 04/04/16 03:28 PT/INR, D-dimer PT 16.8 Sec. (12.2-14.9) H 03/23/16 18:56 INR 1.37 (0.87-1.13) H 03/23/16 18:56 Abnormal lab findings: Abnormal Labs 03/24/16 03/24/16 03/24/16 00:10 05:04 05:12 RBC 2.42 L Hgb 7.8 L Hct 23.4 L MCV 99 H MCH RDW Plt Count 139 L Smith % (Auto) 10.4 H Lymph # 0.9 L Seg Neutrophils % 71.0 H Lymphocytes % (Manual) Lymphocytes # (Manual) POC ABG pH 7.279 L POC ABG pCO2 33.6 L POC ABG pO2 112 H Sodium Potassium Chloride Carbon Dioxide BUN Creatinine Glucose POC Glucose 144 H Calcium Total Protein Albumin Crossmatch 03/24/16 03/24/16 03/25/16 05:12 05:50 04:30 RBC 2.55 L Hgb 8.0 L Hct 25.0 L MCV 98 H MCH RDW 15.6 H Plt Count Smith % (Auto) Lymph # Seg Neutrophils % Lymphocytes % (Manual) 10.0 L Lymphocytes # (Manual) 0.7 L POC ABG pH POC ABG pCO2 POC ABG pO2 Sodium Potassium Chloride 112.3 H Carbon Dioxide 17 L BUN 51 H Creatinine 2.3 H Glucose POC Glucose 107 H Calcium 7.0 L Total Protein Albumin Crossmatch 03/25/16 03/25/16 03/25/16 04:30 04:58 10:17 RBC Hgb Hct MCV MCH RDW Plt Count Smith % (Auto) Lymph # Seg Neutrophils % Lymphocytes % (Manual) Lymphocytes # (Manual) POC ABG pH 7.285 L 7.261 L POC ABG pCO2 27.2 L 28.6 L POC ABG pO2 112 H Sodium 148 H Potassium Chloride 116.9 H Carbon Dioxide 14 L BUN 38 H Creatinine 1.7 H Glucose POC Glucose Calcium 7.1 L Total Protein 5.0 L D Albumin 2.4 L Crossmatch 03/26/16 03/26/16 03/26/16 05:30 05:30 05:32 RBC 2.37 L Hgb 7.7 L Hct 23.0 L MCV MCH 33 H RDW Plt Count 134 L Smith % (Auto) 15.2 H Lymph # 0.9 L Seg Neutrophils % Lymphocytes % (Manual) Lymphocytes # (Manual) POC ABG pH POC ABG pCO2 31.8 L POC ABG pO2 Sodium 147 H Potassium Chloride 112.3 H Carbon Dioxide 21 L D BUN 20 H Creatinine 1.3 H Glucose 121 H POC Glucose Calcium 7.6 L Total Protein Albumin Crossmatch 03/26/16 03/26/16 03/26/16 06:05 11:46 17:24 RBC Hgb Hct MCV MCH RDW Plt Count Smith % (Auto) Lymph # Seg Neutrophils % Lymphocytes % (Manual) Lymphocytes # (Manual) POC ABG pH POC ABG pCO2 POC ABG pO2 Sodium Potassium Chloride Carbon Dioxide BUN Creatinine Glucose POC Glucose 115 H 146 H 134 H Calcium Total Protein Albumin Crossmatch 03/26/16 03/27/16 03/27/16 23:41 06:00 06:00 RBC 2.46 L Hgb 7.8 L Hct 23.7 L MCV MCH RDW Plt Count 138 L Smith % (Auto) 12.5 H Lymph # Seg Neutrophils % Lymphocytes % (Manual) Lymphocytes # (Manual) POC ABG pH POC ABG pCO2 POC ABG pO2 Sodium Potassium Chloride Carbon Dioxide BUN Creatinine Glucose POC Glucose 155 H Calcium 7.6 L Total Protein Albumin Crossmatch 03/27/16 03/27/16 03/27/16 11:25 17:37 18:01 RBC Hgb Hct MCV MCH RDW Plt Count Smith % (Auto) Lymph # Seg Neutrophils % Lymphocytes % (Manual) Lymphocytes # (Manual) POC ABG pH POC ABG pCO2 POC ABG pO2 Sodium Potassium Chloride Carbon Dioxide BUN Creatinine Glucose POC Glucose 163 H 173 H 171 H Calcium Total Protein Albumin Crossmatch 03/27/16 03/28/16 03/28/16 23:51 04:53 05:47 RBC Hgb Hct MCV MCH RDW Plt Count [place] % (Auto) Lymph # Seg Neutrophils % Lymphocytes % (Manual) Lymphocytes # (Manual) POC ABG pH POC ABG pCO2 34.9 L POC ABG pO2 Sodium Potassium Chloride Carbon Dioxide BUN Creatinine Glucose POC Glucose 136 H 164 H Calcium Total Protein Albumin Crossmatch 03/28/16 03/28/16 03/29/16 11:54 17:33 00:11 RBC Hgb Hct MCV MCH RDW Plt Count [place] % (Auto) Lymph # Seg Neutrophils % Lymphocytes % (Manual) Lymphocytes # (Manual) POC ABG pH POC ABG pCO2 POC ABG pO2 Sodium Potassium Chloride Carbon Dioxide BUN Creatinine Glucose POC Glucose 129 H 148 H 154 H Calcium Total Protein Albumin Crossmatch 03/29/16 03/29/16 03/29/16 04:43 05:00 05:00 RBC 2.07 L Hgb 6.7 L Hct 20.2 L MCV MCH RDW Plt Count 121 L Smith % (Auto) Lymph # Seg Neutrophils % Lymphocytes % (Manual) Lymphocytes # (Manual) POC ABG pH 7.471 H POC ABG pCO2 POC ABG pO2 Sodium 149 H Potassium Chloride 111.2 H Carbon Dioxide BUN Creatinine 1.3 H Glucose 110 H POC Glucose Calcium 7.6 L Total Protein Albumin Crossmatch 03/29/16 03/29/16 03/29/16 05:35 09:30 11:40 RBC Hgb 6.5 L Hct 20.0 L MCV MCH RDW Plt Count Smith % (Auto) Lymph # Seg Neutrophils % Lymphocytes % (Manual) Lymphocytes # (Manual) POC ABG pH POC ABG pCO2 POC ABG pO2 Sodium Potassium Chloride Carbon Dioxide BUN Creatinine Glucose POC Glucose 108 H 141 H Calcium Total Protein Albumin Crossmatch 03/29/16 03/29/16 03/30/16 12:30 17:45 05:15 RBC 2.41 L Hgb 7.7 L Hct 23.1 L MCV MCH RDW 15.3 H Plt Count 131 L Smith % (Auto) Lymph # Seg Neutrophils % Lymphocytes % (Manual) Lymphocytes # (Manual) POC ABG pH POC ABG pCO2 POC ABG pO2 Sodium Potassium Chloride Carbon Dioxide BUN Creatinine Glucose POC Glucose 200 H Calcium Total Protein Albumin Crossmatch See Detail 03/30/16 03/30/16 03/30/16 05:15 05:56 11:46 RBC Hgb Hct MCV MCH RDW Plt Count [place] % (Auto) Lymph # Seg Neutrophils % Lymphocytes % (Manual) Lymphocytes # (Manual) POC ABG pH POC ABG pCO2 POC ABG pO2 Sodium Potassium Chloride Carbon Dioxide BUN Creatinine Glucose 144 H POC Glucose 141 H 167 H Calcium 7.6 L Total Protein Albumin Crossmatch 03/30/16 03/30/16 03/31/16 18:17 23:37 05:25 RBC Hgb Hct MCV MCH RDW Plt Count [place] % (Auto) Lymph # Seg Neutrophils % Lymphocytes % (Manual) Lymphocytes # (Manual) POC ABG pH POC ABG pCO2 POC ABG pO2 Sodium Potassium Chloride Carbon Dioxide BUN Creatinine Glucose POC Glucose 190 H 266 H 222 H Calcium Total Protein Albumin Crossmatch 03/31/16 03/31/16 03/31/16 06:30 06:30 12:05 RBC 2.38 L Hgb 7.7 L Hct 23.0 L MCV MCH RDW Plt Count [place] % (Auto) Lymph # Seg Neutrophils % Lymphocytes % (Manual) Lymphocytes # (Manual) POC ABG pH POC ABG pCO2 POC ABG pO2 Sodium Potassium Chloride Carbon Dioxide BUN Creatinine Glucose 193 H POC Glucose 204 H Calcium 8.1 L Total Protein Albumin Crossmatch 03/31/16 03/31/16 04/01/16 18:10 23:42 05:24 RBC Hgb Hct MCV MCH RDW Plt Count [place] % (Auto) Lymph # Seg Neutrophils % Lymphocytes % (Manual) Lymphocytes # (Manual) POC ABG pH 7.465 H POC ABG pCO2 33.2 L POC ABG pO2 Sodium Potassium Chloride Carbon Dioxide BUN Creatinine Glucose POC Glucose 181 H 203 H Calcium Total Protein Albumin Crossmatch 04/01/16 04/01/16 04/01/16 05:54 11:21 17:50 RBC Hgb Hct MCV MCH RDW Plt Count [place] % (Auto) Lymph # Seg Neutrophils % Lymphocytes % (Manual) Lymphocytes # (Manual) POC ABG pH POC ABG pCO2 POC ABG pO2 Sodium Potassium Chloride Carbon Dioxide BUN Creatinine Glucose POC Glucose 218 H 173 H 206 H Calcium Total Protein Albumin Crossmatch 04/01/16 04/02/16 04/02/16 22:02 00:38 04:37 RBC 2.59 L Hgb 8.2 L Hct 24.7 L MCV MCH RDW Plt Count [place] % (Auto) Lymph # Seg Neutrophils % Lymphocytes % (Manual) Lymphocytes # (Manual) POC ABG pH POC ABG pCO2 POC ABG pO2 Sodium Potassium Chloride Carbon Dioxide BUN Creatinine Glucose POC Glucose 172 H 201 H Calcium Total Protein Albumin Crossmatch 04/02/16 04/02/16 04/02/16 04:37 11:21 17:23 RBC Hgb Hct MCV MCH RDW Plt Count [place] % (Auto) Lymph # Seg Neutrophils % Lymphocytes % (Manual) Lymphocytes # (Manual) POC ABG pH POC ABG pCO2 POC ABG pO2 Sodium Potassium Chloride Carbon Dioxide BUN Creatinine Glucose 206 H POC Glucose 162 H 143 H Calcium Total Protein Albumin Crossmatch 04/03/16 04/03/16 04/03/16 00:39 06:25 12:01 RBC Hgb Hct MCV MCH RDW Plt Count [place] % (Auto) Lymph # Seg Neutrophils % Lymphocytes % (Manual) Lymphocytes # (Manual) POC ABG pH POC ABG pCO2 POC ABG pO2 Sodium Potassium Chloride Carbon Dioxide BUN Creatinine Glucose POC Glucose 215 H 113 H 117 H Calcium Total Protein Albumin Crossmatch 04/03/16 04/03/16 04/04/16 17:39 21:01 00:20 RBC Hgb Hct MCV MCH RDW Plt Count [place] % (Auto) Lymph # Seg Neutrophils % Lymphocytes % (Manual) Lymphocytes # (Manual) POC ABG pH 7.261 L POC ABG pCO2 46.3 H POC ABG pO2 Sodium Potassium Chloride Carbon Dioxide BUN Creatinine Glucose POC Glucose 189 H 168 H Calcium Total Protein Albumin Crossmatch 04/04/16 04/04/16 04/04/16 03:28 06:15 07:12 RBC 2.80 L Hgb 8.9 L Hct 26.3 L MCV MCH RDW Plt Count [place] % (Auto) Lymph # Seg Neutrophils % Lymphocytes % (Manual) Lymphocytes # (Manual) POC ABG pH POC ABG pCO2 34.2 L POC ABG pO2 136 H Sodium Potassium Chloride Carbon Dioxide BUN Creatinine Glucose POC Glucose 248 H Calcium Total Protein Albumin Crossmatch 04/04/16 04/04/16 04/04/16 09:10 11:33 14:40 RBC Hgb Hct MCV MCH RDW Plt Count [place] % (Auto) Lymph # Seg Neutrophils % Lymphocytes % (Manual) Lymphocytes # (Manual) POC ABG pH POC ABG pCO2 POC ABG pO2 Sodium Potassium 2.9 L* Chloride Carbon Dioxide BUN Creatinine Glucose 191 H POC Glucose 167 H 352 H Calcium Total Protein Albumin Crossmatch 04/04/16 04/04/16 04/05/16 17:07 23:44 05:20 RBC 2.78 L Hgb 8.6 L Hct 26.4 L MCV MCH RDW Plt Count [place] % (Auto) Lymph # Seg Neutrophils % Lymphocytes % (Manual) Lymphocytes # (Manual) POC ABG pH POC ABG pCO2 POC ABG pO2 Sodium Potassium Chloride Carbon Dioxide BUN Creatinine Glucose POC Glucose 294 H 239 H Calcium Total Protein Albumin Crossmatch 04/05/16 05:20 RBC Hgb Hct MCV MCH RDW Plt Count [place] % (Auto) Lymph # Seg Neutrophils % Lymphocytes % (Manual) Lymphocytes # (Manual) POC ABG pH POC ABG pCO2 POC ABG pO2 Sodium Potassium 3.5 L D Chloride 108.3 H Carbon Dioxide 21 L BUN Creatinine Glucose 199 H POC Glucose Calcium 8.2 L Total Protein Albumin Crossmatch
[2016-04-05 13:25] LABS: ISTAT Base Excess -5; ISTAT HCO3 20.2; ISTAT PCO2 34.7 (35-45); ISTAT PH 7.373 (7.35-7.45); ISTAT PO2 102 (80-105); ISTAT SO2 98; ISTAT TCO2 21
--- NOTE | 2016-04-05 16:46 | Progress Note ---
Assessment and Plan Assessment and plan: She currently appears to be in acute respiratory distress. Treated with BiPAP. Consider ICU Total Time Spent with Patient (Minutes): 35min - Patient Problems (1) Acute hypoxemic respiratory failure Current Visit: Yes Status: Acute Plan to address problem: Present patient presents with acute hypoxemic respiratory failure. Patient has a PCO2 of around 60 and a PO2 of around 50. Patient's pH is 7.1 with metabolic acidosis. Patient has increased respiratory rate. Patient just got on BiPAP. In speaking with pulmonology and nursing patient has been having episodes of D satting while on 4 L of O2. Patient become encephalopathic and hypoxemic. Patient will improve once her BiPAP is placed back on. Patient does not respond to current BiPAP settings recommended transfer to intensive care unit. Exact etiology unknown however at the top of my differential is COPD with obesity hypoventilation syndrome. Patient may also have some underlying edema which could be exacerbating her respiratory failure. Spoke with pulmonology to review case suggest addition of Seroquel could be effective. Will Pl., Dobbhoff tube in and restart Seroquel. Patient has been on Haldol. IV Lasix to improve oxygenation. (2) Acute renal failure Current Visit: Yes Status: Acute Qualifiers: Acute renal failure type: unspecified Qualified Code(s): N17.9 - Acute kidney failure, unspecified Plan to address problem: Negative vasomotor nephropathy. We'll hold IV fluids treat with Lasix at this particular time. We'll need to get more potassium now there were giving Lasix. Lasix to improve oxygenation. (3) Altered mental status Current Visit: Yes Status: Acute Qualifiers: Altered mental status type: unspecified Qualified Code(s): R41.82 - Altered mental status, unspecified Plan to address problem: Mental status secondary to hypoxemia. Hypercapnia. (4) Anemia Current Visit: Yes Status: Acute Plan to address problem: Sure chronic anemia no evidence of transfusion this particular time. Most of her problem is from respiratory failure now. (5) COPD (chronic obstructive pulmonary disease) Current Visit: No Status: Chronic Plan to address problem: Advanced COPD continue nebulizers. Continue steroid-induced. Decrease IV fluids. (6) Hypertension Current Visit: No Status: Chronic Qualifiers: Hypertension type: essential hypertension Qualified Code(s): I10 - Essential (primary) hypertension Plan to address problem: Is been hypotensive in the recent past will not titrate antihypertensives at this time. (7) Malnutrition Current Visit: Yes Status: Acute Plan to address problem: Patient failed swallowing eval. Patient has not eaten has not taken Seroquel. Doing consultation with pulmonology was thought that this could be playing a role in her acute respiratory failure. We'll place Dobbhoff. This is an emergency now. Patient did refuse top off initially wanted to repeat a swallow eval the next day however this time patient is acutely ill unable to make any decisions and this is emergency situation. History Interval history: Patient at present encephalopathic with acute respiratory failure. Patient's on BiPAP hypoxic increased respiratory rate. Unable to make needs known. Hospitalist Physical - Constitutional Vitals: Temp Pulse Resp BP Pulse Ox 98.5 F 116 H 32 H 174/77 96 04/05/16 15:31 04/05/16 15:50 04/05/16 15:50 04/05/16 15:50 04/05/16 11:31 General appearance: Present: no acute distress, severe distress, well-nourished , obese, other (intubated on ventilatory support) - EENT ENT: other (unable to appreciate pupils secondary to distress.) - Neck Neck: Present: supple, normal ROM, other (large neck no bruits.) - Respiratory Respiratory effort: labored Respiratory: bilateral: diminished, rhonchi (. Rhonchi bases only.), negative: other (she has increased work of breathing on BiPAP machine recently placed.) - Cardiovascular Rhythm: other (echocardiogram) - Extremities Extremities: no ischemia, No edema, normal temperature, normal color - Abdominal General gastrointestinal: non-tender, non-distended, normal bowel sounds - Psychiatric Psychiatric: other (obtunded and encephalopathic) Results - Labs CBC & Chem 7: 04/05/16 05:20 04/05/16 05:20 Labs: Laboratory Last Values WBC 6.6 K/mm3 (4.5-11.0) 04/05/16 05:20 RBC 2.78 M/mm3 (3.65-5.03) L 04/05/16 05:20 Hgb 8.6 gm/dl (10.1-14.3) L 04/05/16 05:20 Hct 26.4 % (30.3-42.9) L 04/05/16 05:20 MCV 95 fl (79-97) 04/05/16 05:20 MCH 31 pg (28-32) 04/05/16 05:20 MCHC 33 % (30-34) 04/05/16 05:20 RDW 14.5 % (13.2-15.2) 04/05/16 05:20 Plt Count 359 K/mm3 (140-440) 04/05/16 05:20 Lymph % (Auto) 22.9 % (13.4-35.0) 03/27/16 06:00 [place] % (Auto) 12.5 % (0.0-7.3) H 03/27/16 06:00 Eos % (Auto) 1.1 % (0.0-4.3) 03/27/16 06:00 Baso % (Auto) 0.4 % (0.0-1.8) 03/27/16 06:00 Lymph # 1.4 K/mm3 (1.2-5.4) 03/27/16 06:00 [place] # 0.8 K/mm3 (0.0-0.8) 03/27/16 06:00 Eos # 0.1 K/mm3 (0.0-0.4) 03/27/16 06:00 Baso # 0.0 K/mm3 (0.0-0.1) 03/27/16 06:00 Add Manual Diff Complete 03/25/16 04:30 Total Counted 100 03/25/16 04:30 Seg Neutrophils % 63.1 % (40.0-70.0) 03/27/16 06:00 Seg Neuts % (Manual) 64.0 % (40.0-70.0) 03/25/16 04:30 Band Neutrophils % 18.0 % 03/25/16 04:30 Lymphocytes % (Manual) 10.0 % (13.4-35.0) L 03/25/16 04:30 Reactive Lymphs % (Man) 0 % 03/25/16 04:30 Monocytes % (Manual) 7.0 % (0.0-7.3) 03/25/16 04:30 Eosinophils % (Manual) 1.0 % (0.0-4.3) 03/25/16 04:30 Basophils % (Manual) 0 % (0.0-1.8) 03/25/16 04:30 Metamyelocytes % 0 % 03/25/16 04:30 Myelocytes % 0 % 03/25/16 04:30 Promyelocytes % 0 % 03/25/16 04:30 Blast Cells % 0 % 03/25/16 04:30 Nucleated RBC % Not Reportable 03/25/16 04:30 Seg Neutrophils # 3.9 K/mm3 (1.8-7.7) 03/27/16 06:00 Seg Neutrophils # Man 4.7 K/mm3 (1.8-7.7) 03/25/16 04:30 Band Neutrophils # 1.3 K/mm3 03/25/16 04:30 Lymphocytes # (Manual) 0.7 K/mm3 (1.2-5.4) L 03/25/16 04:30 Abs React Lymphs (Man) 0.0 K/mm3 03/25/16 04:30 Monocytes # (Manual) 0.5 K/mm3 (0.0-0.8) 03/25/16 04:30 Eosinophils # (Manual) 0.1 K/mm3 (0.0-0.4) 03/25/16 04:30 Basophils # (Manual) 0.0 K/mm3 (0.0-0.1) 03/25/16 04:30 Metamyelocytes # 0.0 K/mm3 03/25/16 04:30 Myelocytes # 0.0 K/mm3 03/25/16 04:30 Promyelocytes # 0.0 K/mm3 03/25/16 04:30 Blast Cells # 0.0 K/mm3 03/25/16 04:30 WBC Morphology Not Reportable 03/25/16 04:30 Hypersegmented Neuts Not Reportable 03/25/16 04:30 Hyposegmented Neuts Not Reportable 03/25/16 04:30 Hypogranular Neuts Not Reportable 03/25/16 04:30 Smudge Cells Not Reportable 03/25/16 04:30 Toxic Granulation Not Reportable 03/25/16 04:30 Toxic Vacuolation Not Reportable 03/25/16 04:30 Dohle Bodies Not Reportable 03/25/16 04:30 Pelger-Huet Anomaly Not Reportable 03/25/16 04:30 Sameer Rods Not Reportable 03/25/16 04:30 Platelet Estimate Appears decreased 03/25/16 04:30 Clumped Platelets Not Reportable 03/25/16 04:30 Plt Clumps, EDTA Not Reportable 03/25/16 04:30 Large Platelets Not Reportable 03/25/16 04:30 Giant Platelets Not Reportable 03/25/16 04:30 Platelet Satelliting Not Reportable 03/25/16 04:30 Plt Morphology Comment Not Reportable 03/25/16 04:30 RBC Morphology Not Reportable 03/25/16 04:30 Dimorphic RBCs Not Reportable 03/25/16 04:30 Polychromasia Not Reportable 03/25/16 04:30 Hypochromasia Not Reportable 03/25/16 04:30 Poikilocytosis Few 03/25/16 04:30 Anisocytosis Not Reportable 03/25/16 04:30 Microcytosis Not Reportable 03/25/16 04:30 Macrocytosis Not Reportable 03/25/16 04:30 Spherocytes Not Reportable 03/25/16 04:30 Pappenheimer Bodies Not Reportable 03/25/16 04:30 Sickle Cells Not Reportable 03/25/16 04:30 Target Cells Not Reportable 03/25/16 04:30 Tear Drop Cells Not Reportable 03/25/16 04:30 Ovalocytes Few 03/25/16 04:30 Helmet Cells Not Reportable 03/25/16 04:30 [place] Bodies Not Reportable 03/25/16 04:30 [place] Rings Not Reportable 03/25/16 04:30 [place] Cells Not Reportable 03/25/16 04:30 Bite Cells Not Reportable 03/25/16 04:30 Crenated Cell Not Reportable 03/25/16 04:30 Elliptocytes Not Reportable 03/25/16 04:30 Acanthocytes (Spur) Not Reportable 03/25/16 04:30 Rouleaux Not Reportable 03/25/16 04:30 Hemoglobin C Crystals Not Reportable 03/25/16 04:30 Schistocytes Not Reportable 03/25/16 04:30 Malaria parasites Not Reportable 03/25/16 04:30 Konstantin Bodies Not Reportable 03/25/16 04:30 Hem Pathologist Commnt No 03/25/16 04:30 PT 16.8 Sec. (12.2-14.9) H 03/23/16 18:56 INR 1.37 (0.87-1.13) H 03/23/16 18:56 APTT 28.7 Sec. (24.2-36.6) 03/23/16 18:56 POC ABG pH 7.373 (7.35-7.45) 04/05/16 11:24 POC ABG pCO2 34.7 (35-45) L 04/05/16 11:24 POC ABG pO2 102 (80-105) 04/05/16 11:24 POC ABG HCO3 20.2 04/05/16 11:24 POC ABG Total CO2 21 04/05/16 11:24 POC ABG O2 Sat 98 04/05/16 11:24 POC ABG Base Excess -5 04/05/16 11:24 FiO2 40 % 04/05/16 11:24 Sodium 145 mmol/L (137-145) 04/05/16 05:20 Potassium 3.5 mmol/L (3.6-5.0) L D 04/05/16 05:20 Chloride 108.3 mmol/L (98-107) H 04/05/16 05:20 Carbon Dioxide 21 mmol/L (22-30) L 04/05/16 05:20 Anion Gap 19 mmol/L 04/05/16 05:20 BUN 13 mg/dL (7-17) 04/05/16 05:20 Creatinine 0.9 mg/dL (0.7-1.2) 04/05/16 05:20 Estimated GFR > 60 ml/min 04/05/16 05:20 BUN/Creatinine Ratio 14.44 % 04/05/16 05:20 Glucose 199 mg/dL (65-100) H 04/05/16 05:20 POC Glucose 208 (70-105) H 04/05/16 16:24 Lactic Acid 1.4 mmol/L (0.7-2.0) 03/23/16 20:10 Calcium 8.2 mg/dL (8.4-10.2) L 04/05/16 05:20 Phosphorus 3.8 mg/dL (2.5-4.5) 03/25/16 04:30 Magnesium 2.2 mg/dL (1.7-2.3) 03/28/16 05:30 Total Bilirubin 0.2 mg/dL (0.1-1.2) 03/25/16 04:30 Direct Bilirubin < 0.2 mg/dL (0-0.2) 03/25/16 04:30 Indirect Bilirubin 0.0 mg/dL 03/25/16 04:30 AST 20 units/L (5-40) 03/25/16 04:30 ALT 12 units/L (7-56) 03/25/16 04:30 Alkaline Phosphatase 86 units/L (35-129) 03/25/16 04:30 Total Protein 5.0 g/dL (6.3-8.2) L D 03/25/16 04:30 Albumin 2.4 g/dL (3.9-5) L 03/25/16 04:30 Albumin/Globulin Ratio 0.9 % 03/25/16 04:30 TSH 0.264 mlU/mL (0.270-4.200) L 03/23/16 17:33 Urine Color Yellow (Yellow) 03/23/16 20:13 Urine Turbidity Slightly-cloudy (Clear) 03/23/16 20:13 Urine pH 5.0 (5.0-7.0) 03/23/16 20:13 Ur Specific [place] 1.016 (1.003-1.030) 03/23/16 20:13 Urine Protein 100 mg/dl mg/dL (Negative) 03/23/16 20:13 Urine Glucose (UA) Neg mg/dL (Negative) 03/23/16 20:13 Urine Ketones Neg mg/dL (Negative) 03/23/16 20:13 Urine Blood Mod (Negative) 03/23/16 20:13 Urine Nitrite Neg (Negative) 03/23/16 20:13 Urine Bilirubin Neg (Negative) 03/23/16 20:13 Urine Urobilinogen < 2.0 mg/dL (<2.0) 03/23/16 20:13 Ur Leukocyte Esterase Neg (Negative) 03/23/16 20:13 Urine WBC (Auto) < 1.0 /HPF (0.0-6.0) 03/23/16 20:13 Urine RBC (Auto) < 1.0 /HPF (0.0-6.0) 03/23/16 20:13 U Epithel Cells (Auto) < 1.0 /HPF (0-13.0) 03/23/16 20:13 Urine Mucus Few /HPF 03/23/16 20:13 Salicylates 0.6 mg/dL (2.8-20.0) L 03/23/16 17:33 Urine Opiates Screen Presumptive positive 03/23/16 20:13 Urine Methadone Screen Presumptive negative 03/23/16 20:13 Acetaminophen < 15.0 ug/mL (10.0-30.0) 03/23/16 17:33 Ur Barbiturates Screen Presumptive negative 03/23/16 20:13 Ur Phencyclidine Scrn Presumptive negative 03/23/16 20:13 Ur Amphetamines Screen Presumptive negative 03/23/16 20:13 U Benzodiazepines Scrn Presumptive negative 03/23/16 20:13 Urine Cocaine Screen Presumptive negative 03/23/16 20:13 U Marijuana (THC) Screen Presumptive negative 03/23/16 20:13 Drugs of Abuse Note Disclamer 03/23/16 20:13 Plasma/Serum Alcohol < 0.01 gm% (0-0.07) 03/23/16 17:45 Blood Type B NEGATIVE 03/29/16 12:30 Antibody Screen Negative 03/29/16 12:30 Crossmatch See Detail 03/29/16 12:30 - Imaging and Cardiology Chest x-ray: image reviewed Abdominal x-ray: image reviewed
--- NOTE | 2016-04-05 18:13 | XRay Report ---
FINAL REPORT PROCEDURE: XR CHEST 1V AP TECHNIQUE: Chest radiograph anteroposterior view. CPT 69752 HISTORY: sob COMPARISON: 04/04/2016 FINDINGS: Heart: Mild to moderately enlarged Mediastinum/Vessels: Moderate to severe congestion with cephalization of flow and evidence for edema. Lungs/Pleural space: Patchy airspace process in the left upper left lower and right lower lung zones. These may reflect developing pneumonia is and/or alveolar related edematous changes.. Bony thorax: No acute osseous abnormality. Life support devices: Stable right-sided PICC with the tip in the mid subclavian vein. IMPRESSION: Developing moderate CHF Patchy infiltrates in the left upper left lower and right mid to lower lung zone
--- NOTE | 2016-04-05 18:41 | XRay Report ---
FINAL REPORT PROCEDURE: XR ABDOMEN 1V AP TECHNIQUE: Single-view abdomen HISTORY: Dobhoff placement COMPARISON: Chest x-ray earlier today FINDINGS: Dobhoff style tube along the distal esophagus into the body of the stomach with the catheter tip directed towards the fundus. Incomplete visualization of the mid to lower lung zones with mixed interstitial alveolar disease. Nonspecific bowel pattern. Right and left common iliac artery stents. IMPRESSION: Dobhoff tip directed towards the fundus
--- NOTE | 2016-04-05 18:43 | XRay Report ---
FINAL REPORT PROCEDURE: XR ABDOMEN 1V AP 17:44 p.m. TECHNIQUE: Single-view abdomen today HISTORY: dobhoff placement COMPARISON: Earlier today17:43 p.m. FINDINGS: Dobhoff appears to been retracted somewhat with persistent tube tip directed towards the fundus of the stomach posteriorly. Otherwise no change IMPRESSION: Dobhoff style tube directed towards the fundus
[2016-04-05] MEDS: LASIX IV SCH (19:28)
--- NOTE | 2016-04-05 20:31 | Event Note ---
Date: 04/05/16 seen and re-examined; remains on BIPAP; dubhoff placement has not been confirmed and has still not received mood altering medications - give a short break off BIPAP as tolerated - DHT placement confirmed
[2016-04-05] MEDS ORDERED: ATIVAN IV PRN (21:02)
[2016-04-05] MEDS: XALATAN 0.005% OU SCH (22:00)
--- NOTE | 2016-04-05 22:35 | XRay Report ---
FINAL REPORT PROCEDURE: XR ABDOMEN 1V AP 21:27 p.m. TECHNIQUE: Single-view abdomen HISTORY: dophoff placement COMPARISON: 04/05/2016 17:45 p.m. FINDINGS: Dobhoff tube along the esophagus seen midline at the esophagogastric junction and somewhat bent distally 6 centimeters from the tip with the tip directed cephalad. The distal Dobhoff catheter appears folded near or approaching the suspected level of the antrum IMPRESSION: Dobhoff catheter as above
[2016-04-05 22:49] LABS: Albumin/Globulin Ratio 0.9 %; Bilirubin,Total 0.2 mg/dL (0.1-1.2); Calcium 8.3 mg/dL (8.4-10.2); Chloride 110.3 mmol/L (98-107); Potassium 3.3 mmol/L (3.6-5.0); Total Protein 6.3 g/dL (6.3-8.2)
[2016-04-06] MEDS: NOVOLOG SUB-Q SCH ×4 (00:30→17:21)
[2016-04-06 06:22] LABS: ISTAT Base Excess -8; ISTAT HCO3 21.6; ISTAT PCO2 64.2 (35-45); ISTAT PH 7.134 (7.35-7.45); ISTAT PO2 52 (80-105); ISTAT SO2 73; ISTAT TCO2 23
[2016-04-06] MEDS: D5/0.45NS 1,000 ML IV SCH (06:31)
[2016-04-06] MEDS: CATAPRES PO SCH ×3 (06:31→23:00)
[2016-04-06] MEDS: LASIX IV SCH ×2 (06:32→17:22)
[2016-04-06] MEDS: HEPARIN SUB-Q SCH ×3 (06:32→23:00)
[2016-04-06] MEDS: DUONEB 0.5 MG-3 MG/3 ML SOLN IH SCH ×3 (07:45→19:29)
[2016-04-06] MEDS: PLAVIX PO SCH (09:32)
[2016-04-06] MEDS: NEURONTIN PO SCH ×3 (09:33→21:00)
[2016-04-06] MEDS: PEPCID IV SCH (09:34)
--- NOTE | 2016-04-06 10:15 | Progress Note ---
Assessment and Plan - Patient Problems (1) Metabolic acidosis Current Visit: Yes Status: Acute Plan to address problem: - resolved - stopped bicarbonate supplementation (2) CKD (chronic kidney disease) Current Visit: No Status: Chronic Qualifiers: Chronic kidney disease stage: unspecified stage Qualified Code(s): N18.9 - Chronic kidney disease, unspecified Plan to address problem: - non oliguric - Serum creatinine WNL - replace potasium (3) Acute hypoxemic respiratory failure Current Visit: Yes Status: Acute Plan to address problem: (Acute on Chronic really) - improved & extubated - continue aspiration precautions - continue bronchodilators and pulmonary toilet - wean oxygen for sats> 92% - get ABG now and if no significant critical values will give breaks off BIPAP - continue scheduled qhs BIPAP with prn daytime use (4) Altered mental status Current Visit: Yes Status: Acute Qualifiers: Altered mental status type: unspecified Qualified Code(s): R41.82 - Altered mental status, unspecified Plan to address problem: - continue prn haldol - continue seroquel - follow clinically (5) Anemia Current Visit: Yes Status: Acute Plan to address problem: - transfused 1 unit PRBC's this admission - anemia w/up - stool occult blood ordered - negative stool guaiac resulted - follow H&H (6) Discharge planning issues Current Visit: Yes Status: Acute Plan to address problem: - hopefully does not decompensate and end up back in ICU - otherwise consider LTAC Subjective Date of service: 04/06/16 Principal diagnosis: Acute Hypoxemic Respiratory Failure Interval history: Seen and examined at bedside; 24 hour events reviewed; nursing and respiratory care staff consulted; no adverse overnight events reported to me; continues to require BIPAP support Objective Vital Signs - 12hr 04/05/16 04/05/16 04/06/16 22:34 23:08 04:00 Temperature 98.0 F Pulse Rate 99 H 104 H Pulse Rate [ Anterior Bilateral] Pulse Rate [ 62 Apical] Respiratory 22 22 Rate Respiratory Rate [Anterior Bilateral] Blood Pressure 128/65 Blood Pressure 107/54 [Left Arm] O2 Sat by Pulse 100 100 Oximetry 04/06/16 04/06/16 04/06/16 06:31 07:45 07:46 Temperature Pulse Rate 73 79 Pulse Rate [ 79 Anterior Bilateral] Pulse Rate [ Apical] Respiratory 22 Rate Respiratory 22 Rate [Anterior Bilateral] Blood Pressure 125/67 Blood Pressure [Left Arm] O2 Sat by Pulse 98 Oximetry 04/06/16 04/06/16 07:51 08:00 Temperature 98 F Pulse Rate Pulse Rate [ 75 Anterior Bilateral] Pulse Rate [ 64 Apical] Respiratory 14 Rate Respiratory 22 Rate [Anterior Bilateral] Blood Pressure Blood Pressure 122/64 [Left Arm] O2 Sat by Pulse 100 Oximetry Constitutional: appears uncomfortable, other (somnolent) Eyes: non-icteric ENT: oropharynx moist Neck: supple, no JVD Effort: mildly labored (but close to baseline) Ascultation: Bilateral: diminished breath sounds, rhonchi (base) Cardiovascular: regular rate and rhythm Gastrointestinal: normoactive bowel sounds, soft, non-tender, non-distended Integumentary: normal Extremities: no cyanosis, no edema, pink and warm, pulses normal, no ischemia or petechiae Neurologic: normal mental status, non-focal exam, pupils equal and round, motor strength normal and Psychiatric: mood appropriate, affect normal CBC and BMP: 04/07/16 08:21 04/07/16 08:21 ABG, PT/INR, D-dimer: ABG POC ABG pH 7.134 (7.35-7.45) L 04/05/16 15:58 POC ABG pCO2 64.2 (35-45) H 04/05/16 15:58 POC ABG pO2 52 (80-105) L 04/05/16 15:58 POC ABG HCO3 21.6 04/05/16 15:58 POC ABG Total CO2 23 04/05/16 15:58 POC ABG O2 Sat 73 04/05/16 15:58 PT/INR, D-dimer PT 16.8 Sec. (12.2-14.9) H 03/23/16 18:56 INR 1.37 (0.87-1.13) H 03/23/16 18:56 Abnormal lab findings: Abnormal Labs 03/24/16 03/24/16 03/24/16 00:10 05:04 05:12 RBC 2.42 L Hgb 7.8 L Hct 23.4 L MCV 99 H MCH RDW Plt Count 139 L [place] % (Auto) 10.4 H Lymph # 0.9 L Seg Neutrophils % 71.0 H Lymphocytes % (Manual) Lymphocytes # (Manual) POC ABG pH 7.279 L POC ABG pCO2 33.6 L POC ABG pO2 112 H Sodium Potassium Chloride Carbon Dioxide BUN Creatinine Glucose POC Glucose 144 H Calcium Total Protein Albumin Crossmatch 03/24/16 03/24/16 03/25/16 05:12 05:50 04:30 RBC 2.55 L Hgb 8.0 L Hct 25.0 L MCV 98 H MCH RDW 15.6 H Plt Count [place] % (Auto) Lymph # Seg Neutrophils % Lymphocytes % (Manual) 10.0 L Lymphocytes # (Manual) 0.7 L POC ABG pH POC ABG pCO2 POC ABG pO2 Sodium Potassium Chloride 112.3 H Carbon Dioxide 17 L BUN 51 H Creatinine 2.3 H Glucose POC Glucose 107 H Calcium 7.0 L Total Protein Albumin Crossmatch 03/25/16 03/25/16 03/25/16 04:30 04:58 10:17 RBC Hgb Hct MCV MCH RDW Plt Count [place] % (Auto) Lymph # Seg Neutrophils % Lymphocytes % (Manual) Lymphocytes # (Manual) POC ABG pH 7.285 L 7.261 L POC ABG pCO2 27.2 L 28.6 L POC ABG pO2 112 H Sodium 148 H Potassium Chloride 116.9 H Carbon Dioxide 14 L BUN 38 H Creatinine 1.7 H Glucose POC Glucose Calcium 7.1 L Total Protein 5.0 L D Albumin 2.4 L Crossmatch 03/26/16 03/26/16 03/26/16 05:30 05:30 05:32 RBC 2.37 L Hgb 7.7 L Hct 23.0 L MCV MCH 33 H RDW Plt Count 134 L [place] % (Auto) 15.2 H Lymph # 0.9 L Seg Neutrophils % Lymphocytes % (Manual) Lymphocytes # (Manual) POC ABG pH POC ABG pCO2 31.8 L POC ABG pO2 Sodium 147 H Potassium Chloride 112.3 H Carbon Dioxide 21 L D BUN 20 H Creatinine 1.3 H Glucose 121 H POC Glucose Calcium 7.6 L Total Protein Albumin Crossmatch 03/26/16 03/26/16 03/26/16 06:05 11:46 17:24 RBC Hgb Hct MCV MCH RDW Plt Count [place] % (Auto) Lymph # Seg Neutrophils % Lymphocytes % (Manual) Lymphocytes # (Manual) POC ABG pH POC ABG pCO2 POC ABG pO2 Sodium Potassium Chloride Carbon Dioxide BUN Creatinine Glucose POC Glucose 115 H 146 H 134 H Calcium Total Protein Albumin Crossmatch 03/26/16 03/27/16 03/27/16 23:41 06:00 06:00 RBC 2.46 L Hgb 7.8 L Hct 23.7 L MCV MCH RDW Plt Count 138 L [place] % (Auto) 12.5 H Lymph # Seg Neutrophils % Lymphocytes % (Manual) Lymphocytes # (Manual) POC ABG pH POC ABG pCO2 POC ABG pO2 Sodium Potassium Chloride Carbon Dioxide BUN Creatinine Glucose POC Glucose 155 H Calcium 7.6 L Total Protein Albumin Crossmatch 03/27/16 03/27/16 03/27/16 11:25 17:37 18:01 RBC Hgb Hct MCV MCH RDW Plt Count [place] % (Auto) Lymph # Seg Neutrophils % Lymphocytes % (Manual) Lymphocytes # (Manual) POC ABG pH POC ABG pCO2 POC ABG pO2 Sodium Potassium Chloride Carbon Dioxide BUN Creatinine Glucose POC Glucose 163 H 173 H 171 H Calcium Total Protein Albumin Crossmatch 03/27/16 03/28/16 03/28/16 23:51 04:53 05:47 RBC Hgb Hct MCV MCH RDW Plt Count [place] % (Auto) Lymph # Seg Neutrophils % Lymphocytes % (Manual) Lymphocytes # (Manual) POC ABG pH POC ABG pCO2 34.9 L POC ABG pO2 Sodium Potassium Chloride Carbon Dioxide BUN Creatinine Glucose POC Glucose 136 H 164 H Calcium Total Protein Albumin Crossmatch 03/28/16 03/28/16 03/29/16 11:54 17:33 00:11 RBC Hgb Hct MCV MCH RDW Plt Count [place] % (Auto) Lymph # Seg Neutrophils % Lymphocytes % (Manual) Lymphocytes # (Manual) POC ABG pH POC ABG pCO2 POC ABG pO2 Sodium Potassium Chloride Carbon Dioxide BUN Creatinine Glucose POC Glucose 129 H 148 H 154 H Calcium Total Protein Albumin Crossmatch 03/29/16 03/29/16 03/29/16 04:43 05:00 05:00 RBC 2.07 L Hgb 6.7 L Hct 20.2 L MCV MCH RDW Plt Count 121 L [place] % (Auto) Lymph # Seg Neutrophils % Lymphocytes % (Manual) Lymphocytes # (Manual) POC ABG pH 7.471 H POC ABG pCO2 POC ABG pO2 Sodium 149 H Potassium Chloride 111.2 H Carbon Dioxide BUN Creatinine 1.3 H Glucose 110 H POC Glucose Calcium 7.6 L Total Protein Albumin Crossmatch 03/29/16 03/29/16 03/29/16 05:35 09:30 11:40 RBC Hgb 6.5 L Hct 20.0 L MCV MCH RDW Plt Count [place] % (Auto) Lymph # Seg Neutrophils % Lymphocytes % (Manual) Lymphocytes # (Manual) POC ABG pH POC ABG pCO2 POC ABG pO2 Sodium Potassium Chloride Carbon Dioxide BUN Creatinine Glucose POC Glucose 108 H 141 H Calcium Total Protein Albumin Crossmatch 03/29/16 03/29/16 03/30/16 12:30 17:45 05:15 RBC 2.41 L Hgb 7.7 L Hct 23.1 L MCV MCH RDW 15.3 H Plt Count 131 L [place] % (Auto) Lymph # Seg Neutrophils % Lymphocytes % (Manual) Lymphocytes # (Manual) POC ABG pH POC ABG pCO2 POC ABG pO2 Sodium Potassium Chloride Carbon Dioxide BUN Creatinine Glucose POC Glucose 200 H Calcium Total Protein Albumin Crossmatch See Detail 03/30/16 03/30/16 03/30/16 05:15 05:56 11:46 RBC Hgb Hct MCV MCH RDW Plt Count [place] % (Auto) Lymph # Seg Neutrophils % Lymphocytes % (Manual) Lymphocytes # (Manual) POC ABG pH POC ABG pCO2 POC ABG pO2 Sodium Potassium Chloride Carbon Dioxide BUN Creatinine Glucose 144 H POC Glucose 141 H 167 H Calcium 7.6 L Total Protein Albumin Crossmatch 03/30/16 03/30/16 03/31/16 18:17 23:37 05:25 RBC Hgb Hct MCV MCH RDW Plt Count [place] % (Auto) Lymph # Seg Neutrophils % Lymphocytes % (Manual) Lymphocytes # (Manual) POC ABG pH POC ABG pCO2 POC ABG pO2 Sodium Potassium Chloride Carbon Dioxide BUN Creatinine Glucose POC Glucose 190 H 266 H 222 H Calcium Total Protein Albumin Crossmatch 03/31/16 03/31/16 03/31/16 06:30 06:30 12:05 RBC 2.38 L Hgb 7.7 L Hct 23.0 L MCV MCH RDW Plt Count [place] % (Auto) Lymph # Seg Neutrophils % Lymphocytes % (Manual) Lymphocytes # (Manual) POC ABG pH POC ABG pCO2 POC ABG pO2 Sodium Potassium Chloride Carbon Dioxide BUN Creatinine Glucose 193 H POC Glucose 204 H Calcium 8.1 L Total Protein Albumin Crossmatch 03/31/16 03/31/16 04/01/16 18:10 23:42 05:24 RBC Hgb Hct MCV MCH RDW Plt Count [place] % (Auto) Lymph # Seg Neutrophils % Lymphocytes % (Manual) Lymphocytes # (Manual) POC ABG pH 7.465 H POC ABG pCO2 33.2 L POC ABG pO2 Sodium Potassium Chloride Carbon Dioxide BUN Creatinine Glucose POC Glucose 181 H 203 H Calcium Total Protein Albumin Crossmatch 04/01/16 04/01/16 04/01/16 05:54 11:21 17:50 RBC Hgb Hct MCV MCH RDW Plt Count [place] % (Auto) Lymph # Seg Neutrophils % Lymphocytes % (Manual) Lymphocytes # (Manual) POC ABG pH POC ABG pCO2 POC ABG pO2 Sodium Potassium Chloride Carbon Dioxide BUN Creatinine Glucose POC Glucose 218 H 173 H 206 H Calcium Total Protein Albumin Crossmatch 04/01/16 04/02/16 04/02/16 22:02 00:38 04:37 RBC 2.59 L Hgb 8.2 L Hct 24.7 L MCV MCH RDW Plt Count [place] % (Auto) Lymph # Seg Neutrophils % Lymphocytes % (Manual) Lymphocytes # (Manual) POC ABG pH POC ABG pCO2 POC ABG pO2 Sodium Potassium Chloride Carbon Dioxide BUN Creatinine Glucose POC Glucose 172 H 201 H Calcium Total Protein Albumin Crossmatch 04/02/16 04/02/16 04/02/16 04:37 11:21 17:23 RBC Hgb Hct MCV MCH RDW Plt Count [place] % (Auto) Lymph # Seg Neutrophils % Lymphocytes % (Manual) Lymphocytes # (Manual) POC ABG pH POC ABG pCO2 POC ABG pO2 Sodium Potassium Chloride Carbon Dioxide BUN Creatinine Glucose 206 H POC Glucose 162 H 143 H Calcium Total Protein Albumin Crossmatch 04/03/16 04/03/16 04/03/16 00:39 06:25 12:01 RBC Hgb Hct MCV MCH RDW Plt Count [place] % (Auto) Lymph # Seg Neutrophils % Lymphocytes % (Manual) Lymphocytes # (Manual) POC ABG pH POC ABG pCO2 POC ABG pO2 Sodium Potassium Chloride Carbon Dioxide BUN Creatinine Glucose POC Glucose 215 H 113 H 117 H Calcium Total Protein Albumin Crossmatch 04/03/16 04/03/16 04/04/16 17:39 21:01 00:20 RBC Hgb Hct MCV MCH RDW Plt Count [place] % (Auto) Lymph # Seg Neutrophils % Lymphocytes % (Manual) Lymphocytes # (Manual) POC ABG pH 7.261 L POC ABG pCO2 46.3 H POC ABG pO2 Sodium Potassium Chloride Carbon Dioxide BUN Creatinine Glucose POC Glucose 189 H 168 H Calcium Total Protein Albumin Crossmatch 04/04/16 04/04/16 04/04/16 03:28 06:15 07:12 RBC 2.80 L Hgb 8.9 L Hct 26.3 L MCV MCH RDW Plt Count [place] % (Auto) Lymph # Seg Neutrophils % Lymphocytes % (Manual) Lymphocytes # (Manual) POC ABG pH POC ABG pCO2 34.2 L POC ABG pO2 136 H Sodium Potassium Chloride Carbon Dioxide BUN Creatinine Glucose POC Glucose 248 H Calcium Total Protein Albumin Crossmatch 04/04/16 04/04/16 04/04/16 09:10 11:33 14:40 RBC Hgb Hct MCV MCH RDW Plt Count [place] % (Auto) Lymph # Seg Neutrophils % Lymphocytes % (Manual) Lymphocytes # (Manual) POC ABG pH POC ABG pCO2 POC ABG pO2 Sodium Potassium 2.9 L* Chloride Carbon Dioxide BUN Creatinine Glucose 191 H POC Glucose 167 H 352 H Calcium Total Protein Albumin Crossmatch 04/04/16 04/04/16 04/05/16 17:07 23:44 05:20 RBC 2.78 L Hgb 8.6 L Hct 26.4 L MCV MCH RDW Plt Count [place] % (Auto) Lymph # Seg Neutrophils % Lymphocytes % (Manual) Lymphocytes # (Manual) POC ABG pH POC ABG pCO2 POC ABG pO2 Sodium Potassium Chloride Carbon Dioxide BUN Creatinine Glucose POC Glucose 294 H 239 H Calcium Total Protein Albumin Crossmatch 04/05/16 04/05/16 04/05/16 05:20 08:26 11:24 RBC Hgb Hct MCV MCH RDW Plt Count [place] % (Auto) Lymph # Seg Neutrophils % Lymphocytes % (Manual) Lymphocytes # (Manual) POC ABG pH POC ABG pCO2 34.7 L POC ABG pO2 Sodium Potassium 3.5 L D Chloride 108.3 H Carbon Dioxide 21 L BUN Creatinine Glucose 199 H POC Glucose 297 H Calcium 8.2 L Total Protein Albumin Crossmatch 04/05/16 04/05/16 04/05/16 11:30 15:58 16:24 RBC Hgb Hct MCV MCH RDW Plt Count [place] % (Auto) Lymph # Seg Neutrophils % Lymphocytes % (Manual) Lymphocytes # (Manual) POC ABG pH 7.134 L POC ABG pCO2 64.2 H POC ABG pO2 52 L Sodium Potassium Chloride Carbon Dioxide BUN Creatinine Glucose POC Glucose 213 H 208 H Calcium Total Protein Albumin Crossmatch 04/05/16 04/05/16 22:14 22:27 RBC Hgb Hct MCV MCH RDW Plt Count [place] % (Auto) Lymph # Seg Neutrophils % Lymphocytes % (Manual) Lymphocytes # (Manual) POC ABG pH POC ABG pCO2 POC ABG pO2 Sodium 149 H Potassium 3.3 L Chloride 110.3 H Carbon Dioxide BUN Creatinine Glucose 159 H POC Glucose 171 H Calcium 8.3 L Total Protein Albumin 3.0 L Crossmatch
[2016-04-06] MEDS: SENOKOT S PO SCH ×2 (10:22→23:00)
[2016-04-06] MEDS ORDERED: SIMPLE SYRUP FEEDTUBE PRN ×2 (12:54)
[2016-04-06] MEDS ORDERED: SODIUM BICARBONATE FEEDTUBE PRN (12:54)
--- NOTE | 2016-04-06 13:20 | Progress Note ---
Assessment and Plan Assessment and plan: She currently appears to be in acute respiratory distress. Treated with BiPAP. Consider ICU - Patient Problems (1) Acute hypoxemic respiratory failure Current Visit: Yes Status: Acute Plan to address problem: Patient respiratory failure has improved. Acidosis has improved hypercapnia has improved. Still cannot withdraw BiPAP. Still unable to tolerate nasal cannula. (2) Acute renal failure Current Visit: Yes Status: Acute Qualifiers: Acute renal failure type: unspecified Qualified Code(s): N17.9 - Acute kidney failure, unspecified Plan to address problem: Improving secondary to vasomotor nephropathy and malnutrition. Should improve now that NG tube is been inserted. We will initiate feedings and free water. (3) Altered mental status Current Visit: Yes Status: Acute Qualifiers: Altered mental status type: unspecified Qualified Code(s): R41.82 - Altered mental status, unspecified Plan to address problem: Secondary to hypercapnia is also responding to BiPAP. Blood gases are consistent with the improvement. (4) Anemia Current Visit: Yes Status: Acute Plan to address problem: Sure chronic anemia no evidence of transfusion this particular time. Most of her problem is from respiratory failure now. (5) COPD (chronic obstructive pulmonary disease) Current Visit: No Status: Chronic Plan to address problem: Think this is her primary problem causing difficulty in weaning oxygen. Continue supportive care still reports BiPAP empiric anabiotic coverage. (6) Hypertension Current Visit: No Status: Chronic Qualifiers: Hypertension type: essential hypertension Qualified Code(s): I10 - Essential (primary) hypertension Plan to address problem: Is been hypotensive in the recent past will not titrate antihypertensives at this time. (7) Malnutrition Current Visit: Yes Status: Acute Plan to address problem: Patient has a G-tube placed. Previously failed swallowing study. We'll continue nutrition via NG tube. Plan 1 encephalopathy resolves within see if patient can eat again if not may require alternative means of feeding. History Interval history: Patient remains on BiPAP.today much more stable than yesterday. Patient now able to decrease BiPAP to 55%. Remains lethargic but more alert than yesterday. Did not have to transferred to ICU patient became much more stabilized. Hospitalist Physical - Constitutional Vitals: Temp Pulse Resp BP Pulse Ox 98 F 64 14 122/64 99 04/06/16 08:00 04/06/16 08:00 04/06/16 08:00 04/06/16 08:00 04/06/16 11:03 General appearance: Present: mild distress, well-nourished, obese, other ( intubated on ventilatory support) - Neck Neck: Present: supple, normal ROM - Respiratory Respiratory: bilateral: diminished - Cardiovascular Rhythm: other (tachycardia) - Extremities Extremities: no ischemia Extremity abnormal: edema Peripheral Pulses: within normal limits - Abdominal General gastrointestinal: soft, non-tender, non-distended - Psychiatric Psychiatric: other (encephalopathic) - Neurologic Neurologic: other (alert when arroused) Results - Labs CBC & Chem 7: 04/05/16 05:20 04/05/16 22:14 Labs: Laboratory Last Values WBC 6.6 K/mm3 (4.5-11.0) 04/05/16 05:20 RBC 2.78 M/mm3 (3.65-5.03) L 04/05/16 05:20 Hgb 8.6 gm/dl (10.1-14.3) L 04/05/16 05:20 Hct 26.4 % (30.3-42.9) L 04/05/16 05:20 MCV 95 fl (79-97) 04/05/16 05:20 MCH 31 pg (28-32) 04/05/16 05:20 MCHC 33 % (30-34) 04/05/16 05:20 RDW 14.5 % (13.2-15.2) 04/05/16 05:20 Plt Count 359 K/mm3 (140-440) 04/05/16 05:20 Lymph % (Auto) 22.9 % (13.4-35.0) 03/27/16 06:00 [place] % (Auto) 12.5 % (0.0-7.3) H 03/27/16 06:00 E[place] % (Auto) 1.1 % (0.0-4.3) 03/27/16 06:00 Baso % (Auto) 0.4 % (0.0-1.8) 03/27/16 06:00 Lymph # 1.4 K/mm3 (1.2-5.4) 03/27/16 06:00 [place] # 0.8 K/mm3 (0.0-0.8) 03/27/16 06:00 Eos # 0.1 K/mm3 (0.0-0.4) 03/27/16 06:00 Baso # 0.0 K/mm3 (0.0-0.1) 03/27/16 06:00 Add Manual Diff Complete 03/25/16 04:30 Total Counted 100 03/25/16 04:30 Seg Neutrophils % 63.1 % (40.0-70.0) 03/27/16 06:00 Seg Neuts % (Manual) 64.0 % (40.0-70.0) 03/25/16 04:30 Band Neutrophils % 18.0 % 03/25/16 04:30 Lymphocytes % (Manual) 10.0 % (13.4-35.0) L 03/25/16 04:30 Reactive Lymphs % (Man) 0 % 03/25/16 04:30 Monocytes % (Manual) 7.0 % (0.0-7.3) 03/25/16 04:30 Eosinophils % (Manual) 1.0 % (0.0-4.3) 03/25/16 04:30 Basophils % (Manual) 0 % (0.0-1.8) 03/25/16 04:30 Metamyelocytes % 0 % 03/25/16 04:30 Myelocytes % 0 % 03/25/16 04:30 Promyelocytes % 0 % 03/25/16 04:30 Blast Cells % 0 % 03/25/16 04:30 Nucleated RBC % Not Reportable 03/25/16 04:30 Seg Neutrophils # 3.9 K/mm3 (1.8-7.7) 03/27/16 06:00 Seg Neutrophils # Man 4.7 K/mm3 (1.8-7.7) 03/25/16 04:30 Band Neutrophils # 1.3 K/mm3 03/25/16 04:30 Lymphocytes # (Manual) 0.7 K/mm3 (1.2-5.4) L 03/25/16 04:30 Abs React Lymphs (Man) 0.0 K/mm3 03/25/16 04:30 Monocytes # (Manual) 0.5 K/mm3 (0.0-0.8) 03/25/16 04:30 Eosinophils # (Manual) 0.1 K/mm3 (0.0-0.4) 03/25/16 04:30 Basophils # (Manual) 0.0 K/mm3 (0.0-0.1) 03/25/16 04:30 Metamyelocytes # 0.0 K/mm3 03/25/16 04:30 Myelocytes # 0.0 K/mm3 03/25/16 04:30 Promyelocytes # 0.0 K/mm3 03/25/16 04:30 Blast Cells # 0.0 K/mm3 03/25/16 04:30 WBC Morphology Not Reportable 03/25/16 04:30 Hypersegmented Neuts Not Reportable 03/25/16 04:30 Hyposegmented Neuts Not Reportable 03/25/16 04:30 Hypogranular Neuts Not Reportable 03/25/16 04:30 Smudge Cells Not Reportable 03/25/16 04:30 Toxic Granulation Not Reportable 03/25/16 04:30 Toxic Vacuolation Not Reportable 03/25/16 04:30 Dohle Bodies Not Reportable 03/25/16 04:30 Pelger-Huet Anomaly Not Reportable 03/25/16 04:30 Sameer Rods Not Reportable 03/25/16 04:30 Platelet Estimate Appears decreased 03/25/16 04:30 Clumped Platelets Not Reportable 03/25/16 04:30 Plt Clumps, EDTA Not Reportable 03/25/16 04:30 Large Platelets Not Reportable 03/25/16 04:30 Giant Platelets Not Reportable 03/25/16 04:30 Platelet Satelliting Not Reportable 03/25/16 04:30 Plt Morphology Comment Not Reportable 03/25/16 04:30 RBC Morphology Not Reportable 03/25/16 04:30 Dimorphic RBCs Not Reportable 03/25/16 04:30 Polychromasia Not Reportable 03/25/16 04:30 Hypochromasia Not Reportable 03/25/16 04:30 Poikilocytosis Few 03/25/16 04:30 Anisocytosis Not Reportable 03/25/16 04:30 Microcytosis Not Reportable 03/25/16 04:30 Macrocytosis Not Reportable 03/25/16 04:30 Spherocytes Not Reportable 03/25/16 04:30 Pappenheimer Bodies Not Reportable 03/25/16 04:30 Sickle Cells Not Reportable 03/25/16 04:30 Target Cells Not Reportable 03/25/16 04:30 Tear Drop Cells Not Reportable 03/25/16 04:30 Ovalocytes Few 03/25/16 04:30 Helmet Cells Not Reportable 03/25/16 04:30 [place] Bodies Not Reportable 03/25/16 04:30 [place] Rings Not Reportable 03/25/16 04:30 [place] Cells Not Reportable 03/25/16 04:30 Bite Cells Not Reportable 03/25/16 04:30 Crenated Cell Not Reportable 03/25/16 04:30 Elliptocytes Not Reportable 03/25/16 04:30 Acanthocytes (Spur) Not Reportable 03/25/16 04:30 Rouleaux Not Reportable 03/25/16 04:30 Hemoglobin C Crystals Not Reportable 03/25/16 04:30 Schistocytes Not Reportable 03/25/16 04:30 Malaria parasites Not Reportable 03/25/16 04:30 Konstantin Bodies Not Reportable 03/25/16 04:30 Hem Pathologist Commnt No 03/25/16 04:30 PT 16.8 Sec. (12.2-14.9) H 03/23/16 18:56 INR 1.37 (0.87-1.13) H 03/23/16 18:56 APTT 28.7 Sec. (24.2-36.6) 03/23/16 18:56 POC ABG pH 7.134 (7.35-7.45) L 04/05/16 15:58 POC ABG pCO2 64.2 (35-45) H 04/05/16 15:58 POC ABG pO2 52 (80-105) L 04/05/16 15:58 POC ABG HCO3 21.6 04/05/16 15:58 POC ABG Total CO2 23 04/05/16 15:58 POC ABG O2 Sat 73 04/05/16 15:58 POC ABG Base Excess -8 04/05/16 15:58 FiO2 36 % 04/05/16 15:58 Sodium 149 mmol/L (137-145) H 04/05/16 22:14 Potassium 3.3 mmol/L (3.6-5.0) L 04/05/16 22:14 Chloride 110.3 mmol/L (98-107) H 04/05/16 22:14 Carbon Dioxide 22 mmol/L (22-30) 04/05/16 22:14 Anion Gap 20 mmol/L 04/05/16 22:14 BUN 17 mg/dL (7-17) 04/05/16 22:14 Creatinine 1.0 mg/dL (0.7-1.2) 04/05/16 22:14 Estimated GFR 55 ml/min 04/05/16 22:14 BUN/Creatinine Ratio 17.00 % 04/05/16 22:14 Glucose 159 mg/dL (65-100) H 04/05/16 22:14 POC Glucose 177 (70-105) H 04/06/16 11:55 Lactic Acid 1.4 mmol/L (0.7-2.0) 03/23/16 20:10 Calcium 8.3 mg/dL (8.4-10.2) L 04/05/16 22:14 Phosphorus 3.8 mg/dL (2.5-4.5) 03/25/16 04:30 Magnesium 2.2 mg/dL (1.7-2.3) 03/28/16 05:30 Total Bilirubin 0.2 mg/dL (0.1-1.2) 04/05/16 22:14 Direct Bilirubin < 0.2 mg/dL (0-0.2) 03/25/16 04:30 Indirect Bilirubin 0.0 mg/dL 03/25/16 04:30 AST 11 units/L (5-40) 04/05/16 22:14 ALT 7 units/L (7-56) 04/05/16 22:14 Alkaline Phosphatase 72 units/L (35-129) 04/05/16 22:14 Total Protein 6.3 g/dL (6.3-8.2) 04/05/16 22:14 Albumin 3.0 g/dL (3.9-5) L 04/05/16 22:14 Albumin/Globulin Ratio 0.9 % 04/05/16 22:14 TSH 0.264 mlU/mL (0.270-4.200) L 03/23/16 17:33 Urine Color Yellow (Yellow) 03/23/16 20:13 Urine Turbidity Slightly-cloudy (Clear) 03/23/16 20:13 Urine pH 5.0 (5.0-7.0) 03/23/16 20:13 Ur Specific [place] 1.016 (1.003-1.030) 03/23/16 20:13 Urine Protein 100 mg/dl mg/dL (Negative) 03/23/16 20:13 Urine Glucose (UA) Neg mg/dL (Negative) 03/23/16 20:13 Urine Ketones Neg mg/dL (Negative) 03/23/16 20:13 Urine Blood Mod (Negative) 03/23/16 20:13 Urine Nitrite Neg (Negative) 03/23/16 20:13 Urine Bilirubin Neg (Negative) 03/23/16 20:13 Urine Urobilinogen < 2.0 mg/dL (<2.0) 03/23/16 20:13 Ur Leukocyte Esterase Neg (Negative) 03/23/16 20:13 Urine WBC (Auto) < 1.0 /HPF (0.0-6.0) 03/23/16 20:13 Urine RBC (Auto) < 1.0 /HPF (0.0-6.0) 03/23/16 20:13 U Epithel Cells (Auto) < 1.0 /HPF (0-13.0) 03/23/16 20:13 Urine Mucus Few /HPF 03/23/16 20:13 Salicylates 0.6 mg/dL (2.8-20.0) L 03/23/16 17:33 Urine Opiates Screen Presumptive positive 03/23/16 20:13 Urine Methadone Screen Presumptive negative 03/23/16 20:13 Acetaminophen < 15.0 ug/mL (10.0-30.0) 03/23/16 17:33 Ur Barbiturates Screen Presumptive negative 03/23/16 20:13 Ur Phencyclidine Scrn Presumptive negative 03/23/16 20:13 Ur Amphetamines Screen Presumptive negative 03/23/16 20:13 U Benzodiazepines Scrn Presumptive negative 03/23/16 20:13 Urine Cocaine Screen Presumptive negative 03/23/16 20:13 U Marijuana (THC) Screen Presumptive negative 03/23/16 20:13 Drugs of Abuse Note Disclamer 03/23/16 20:13 Plasma/Serum Alcohol < 0.01 gm% (0-0.07) 03/23/16 17:45 Blood Type B NEGATIVE 03/29/16 12:30 Antibody Screen Negative 03/29/16 12:30 Crossmatch See Detail 03/29/16 12:30 - Imaging and Cardiology Chest x-ray: image reviewed
[2016-04-06] MEDS ORDERED: PANCREAZE DR 10,500 UNIT FEEDTUBE PRN (14:00)
[2016-04-06] MEDS: LEVEMIR SUB-Q SCH (22:50)
[2016-04-06] MEDS: PEPCID PO SCH (23:00)
[2016-04-07] MEDS: NOVOLOG SUB-Q SCH ×3 (00:54→12:43)
[2016-04-07] MEDS: HEPARIN SUB-Q SCH ×2 (06:35→14:22)
[2016-04-07] MEDS: LASIX IV SCH (06:45)
[2016-04-07] MEDS: CATAPRES PO SCH ×2 (06:45→14:25)
[2016-04-07] MEDS: DUONEB 0.5 MG-3 MG/3 ML SOLN IH SCH ×2 (07:49→14:25)
[2016-04-07 08:32] LABS: Basophils % (Auto) 0.7 % (0.0-1.8); Eosinophils % (Auto) 0.3 % (0.0-4.3); Hematocrit 23.9 % (30.3-42.9); Mean Corpuscular HGB Conc 33 % (30-34); Mean Corpuscular Hemoglobin 32 pg (28-32); Mean Corpuscular Volume 96 fl (79-97); Platelet Count 252 K/mm3 (140-440); Red Blood Count 2.49 M/mm3 (3.65-5.03); Red Cell Distribution Width 14.9 % (13.2-15.2); White Blood Count 6.3 K/mm3 (4.5-11.0)
[2016-04-07 08:56] LABS: Albumin 2.6 g/dL (3.9-5); Albumin/Globulin Ratio 0.8 %; BUN/Creatinine Ratio 16.36; Bilirubin,Total 0.2 mg/dL (0.1-1.2); Calcium 7.9 mg/dL (8.4-10.2); Chloride 106.9 mmol/L (98-107)
[2016-04-07 08:58] LABS: Potassium 2.8 mmol/L (3.6-5.0)
[2016-04-07] MEDS: NEURONTIN PO SCH ×2 (10:00→14:23)
[2016-04-07] MEDS: POTASSIUM CHLORIDE FEEDTUBE SCH ×2 (10:46→14:24)
[2016-04-07] MEDS: PLAVIX PO SCH (10:47)
[2016-04-07] MEDS: SENOKOT S PO SCH (10:48)
[2016-04-07] MEDS: PEPCID PO SCH (10:48)
--- NOTE | 2016-04-07 12:49 | Discharge Summary ---
Providers - Providers Date of Admission: 03/23/16 23:34 Date of discharge: 04/07/16 Attending physician: VU HOLDEN 03/23/16 23:44 Consult to Physician [CONS] Routine Consulting Provider: NARA POTTER Reason For Exam: ICU admission, AMS, intubation Place consult to:: Bar Machine Operator Multiple Spindle Notified:: already done, see other order that has been completed 03/24/16 09:01 Consult to PICC Line RN [CONS] Routine Reason For Exam: vasopressors Type Line:: PICC 03/25/16 13:02 Consult to Dietitian/Nutrition [CONS] Routine Physician Instructions: Reason For Exam: Reason for Consult: Write/Manage TPN/PPN 04/01/16 11:56 Consult to Wound/ET Nurse [CONS] Routine Reason For Exam: sacral wound eval, left lower leg, elbows 04/02/16 14:26 Speech Therapy Evaluation and Treat [CONS] Routine Reason For Exam: swallow evaluation; failed bedside swallow screen Primary care physician: HEEL BURNISHER Hospitalization Reason for admission: Acute hypoxemic and hypercapnic respiratory failure, serious, chronic kidn Condition: Fair Pertinent studies: Chest x-ray shows pulmonary congestion, atelectasis versus pneumonia Procedures: None Hospital course: Patient is 65-year-old female who was a history of chronic pulmonary obstructive disease, chronic kidney disease stage IV, chronic back pain for which patient is on hydrocodone, gabapentin, and baclofen, was noted by family members to be altered in her mental status. EMS was coordinated. Patient was given Natrecor. Mental status improved. Was brought to the emergency department. The cardiology does was commenced. Patient was to altered in her mental status. However was compromised. Patient was intubated and admitted to the intensive care unit. Continue bronchodilators. IV anabiotic, and IV Solu- Medrol. Nephrology consult was obtained to assist in the management of patient' s chronic kidney disease. Was progressively weaned off the vent. Was placed on the oxygen via nasal cannula and BiPAP at night. Currently more alert but still on BiPAP. She is therefore being transferred to [facility] to continue to wean her off of BiPAP and oxygen. Disposition: DC/TX ANOTHER TYPE HEALTHCARE Core Measure Documentation - Palliative Care Palliative Care/ Comfort Measures: Not Applicable - Core Measures Any of the following diagnoses?: none Exam - Constitutional Vitals: Temp Pulse Resp BP Pulse Ox 98.4 F 88 19 130/59 96 04/07/16 06:55 04/07/16 08:09 04/07/16 08:09 04/07/16 06:55 04/07/16 12:36 General appearance: Present: mild distress, well-nourished, other (on BiPAP) - EENT Eyes: Present: PERRL ENT: hearing intact, clear oral mucosa - Neck Neck: Present: supple, normal ROM - Respiratory Respiratory effort: normal Respiratory: bilateral: CTA - Cardiovascular Heart Sounds: Present: S1 & S2. Absent: rub, click - Extremities Extremities: pulses symmetrical, No edema Peripheral Pulses: within normal limits - Abdominal General gastrointestinal: Present: soft, non-tender, non-distended, normal bowel sounds Female genitourinary: Present: normal - Integumentary Integumentary: Present: clear, warm, dry - Musculoskeletal Musculoskeletal: gait normal, strength equal bilaterally - Psychiatric Psychiatric: appropriate mood/affect, intact judgment & insight - Neurologic Neurologic: CNII-XII intact, moves all extremities Plan Activity: up only with assistance Weight Bearing Status: Non-Weight Bearing Diet: regular Special Instructions: physical therapy Durable Medical Equipment Needed Upon Discharge: Oxygen, Bedside Commode Follow up with: PRIMARY CARE, [Primary Care Provider] - 3-5 Days
[2016-04-07 14:25] VITALS: BP 116/59
[2016-04-07] MEDS: D5/0.45NS 1,000 ML IV SCH (14:25)
== END 2016-04-07 16:19 | DRG 207 ==
LOC: ED 16:07 → CC1 23:34 → 3A 04-03 16:54
PROVIDERS: ADMIT Internal Medicine; ATTEND Internal Medicine
PROC: 5A1955Z Respiratory Ventilation, Greater than 96 Consecutive Hours (ICD-10-PCS; principal; 2016-03-23)
PROC: 0BH17EZ Insertion of Endotracheal Airway into Trachea, Via Natural or Artificial Opening (ICD-10-PCS; 2016-03-23)
PROC: 02HV33Z Insertion of Infusion Device into Superior Vena Cava, Percutaneous Approach (ICD-10-PCS; 2016-03-24)
PROC: 4A033R1 Measurement of Arterial Saturation, Peripheral, Percutaneous Approach (ICD-10-PCS; 2016-03-25)
PROC: 4A033R1 Measurement of Arterial Saturation, Peripheral, Percutaneous Approach (ICD-10-PCS; 2016-03-30)
PROC: 4A033R1 Measurement of Arterial Saturation, Peripheral, Percutaneous Approach (ICD-10-PCS; 2016-04-04)
PROC: 5A09457 Assistance with Respiratory Ventilation, 24-96 Consecutive Hours, Continuous Positive Airway Pressure (ICD-10-PCS; 2016-04-04)
DX: J44.1 Chronic obstructive pulmonary disease with (acute) exacerbation (principal); J96.01 Acute respiratory failure with hypoxia; R57.0 Cardiogenic shock; G93.41 Metabolic encephalopathy; N17.0 Acute kidney failure with tubular necrosis; E87.0 Hyperosmolality and hypernatremia; R65.10 Systemic inflammatory response syndrome (SIRS) of non-infectious origin without acute organ dysfunction; E87.2 Acidosis; E46 Unspecified protein-calorie malnutrition; N18.9 Chronic kidney disease, unspecified; E87.5 Hyperkalemia; E78.5 Hyperlipidemia, unspecified; G89.29 Other chronic pain; M54.9 Dorsalgia, unspecified; M19.90 Unspecified osteoarthritis, unspecified site; K21.9 Gastro-esophageal reflux disease without esophagitis; F17.200 Nicotine dependence, unspecified, uncomplicated; T40.2X1A Poisoning by other opioids, accidental (unintentional), initial encounter; I12.9 Hypertensive chronic kidney disease with stage 1 through stage 4 chronic kidney disease, or unspecified chronic kidney disease; D64.9 Anemia, unspecified; I95.9 Hypotension, unspecified; E11.22 Type 2 diabetes mellitus with diabetic chronic kidney disease; E87.6 Hypokalemia; R13.10 Dysphagia, unspecified; Z86.73 Personal history of transient ischemic attack (TIA), and cerebral infarction without residual deficits; Z79.899 Other long term (current) drug therapy; Z88.2 Allergy status to sulfonamides; Z87.19 Personal history of other diseases of the digestive system; Z71.6 Tobacco abuse counseling; Y92.89 Other specified places as the place of occurrence of the external cause; Z68.32 Body mass index [BMI] 32.0-32.9, adult; Z78.1 Physical restraint status
CPT/HCPCS: 36415; 36600; 70450; 71010; 74000; 80048; 80053; 80074; 80307; 80320; 81001; 82140; 82270; 82803; 82962; 83735; 84100; 84443; 85007; 85014; 85018; 85025; 85027; 85610; 85730; 86850; 86900; 86901; 86920; 87040; 87070; 87076; 87086; 87186; 87205; 93005; 93010; 94002; 94003; 94640; 94644; 94660; 94760; 96361; 96374; 96375; 96376; A9270-GY; C9113; G0480; G8996-GN; G8997-GN; J0360; J1450; J1630; J1644; J1815; J1818; J1940; J1956; J2060; J2310; J2543; J3010; J3475; J3480; J7030; J7050; J7070; P9016

== ENCOUNTER 2018-05-09 17:07 | Inpatient (IN) | payer MEDICARE ==
--- NOTE | 2018-05-09 17:41 | Emergency Department Report ---
ED Altered Mental Status HPI - General Chief Complaint: Altered Mental Status Stated Complaint: ALTERED MENTAL STATUS Time Seen by Provider: 05/09/18 17:35 Source: EMS Mode of arrival: Stretcher Limitations: Altered Mental Status - History of Present Illness Initial Comments: She is a 59-year-old female that presents emergency room for altered mental st atus. Patient states she is not sure why she is here. Patient is an O 2. Patient is oriented to self and Lasix. Patient is confused to date and situation. Patient denies any other planes. Patient denies pain. Patient denies chest pain. Patient denies headache. Patient denies dizziness. Patient denies falling, However patient has a black eye and multiple bruises. MD Complaint: altered mental status, confusion -: Sudden Severity: severe Consistency of Symptoms: constant Associated Symptoms: denies other symptoms - Related Data Home Medications Medication Instructions Recorded Confirmed Last Taken Clopidogrel [Plavix] 75 mg PO QDAY 02/21/18 04/16/18 Unknown Gabapentin [Neurontin] 400 mg PO Q8HR 02/21/18 04/13/18 Unknown amLODIPine [Norvasc] 10 mg PO DAILY 02/21/18 04/13/18 Unknown traMADol [Ultram 50 MG tab] 50 mg PO Q6HR PRN 02/21/18 04/13/18 Unknown Previous Rx's Medication Instructions Recorded Last Taken Type Metoprolol [Lopressor TAB] 50 mg PO BID tablet 03/14/18 Unknown Rx QUEtiapine [SEROquel] 50 mg PO HS tablet 03/14/18 Unknown Rx Pantoprazole [Protonix TAB] 40 mg PO BID #60 tablet 04/04/18 Unknown Rx Ferrous Sulfate [Feosol 325 MG tab] 325 mg PO BID #60 tablet 04/07/18 Unknown Rx ALBUTEROL Inhaler(NF) [VENTOLIN 1 puff IH QID PRN #1 inha 04/25/18 Unknown Rx Inhaler(NF)] Nicotine [Habitrol] 21 mg TD DAILY #30 patch 04/25/18 Unknown Rx guaiFENesin ER [Mucinex ER] 600 mg PO BID #20 tablet 04/25/18 Unknown Rx hydrALAZINE [Apresoline TAB] 25 mg PO Q8HR #90 tablet 04/25/18 Unknown Rx Allergies Allergy/AdvReac Type Severity Reaction Status Date / Time Sulfa (Sulfonamide Allergy Rash Verified 05/09/18 17:10 Antibiotics) ED Review of Systems ROS: Stated complaint: ALTERED MENTAL STATUS Other details as noted in HPI Comment: Unobtainable due to pts medical conditions ED Past Medical Hx - Past Medical History Previous Medical History?: Yes Hx Hypertension: Yes (2010) Hx CVA: Yes (tia) Hx Heart Attack/AMI: (Pt denies) Hx Diabetes: Yes Hx Deep Vein Thrombosis: No Hx GERD: Yes Hx Renal Disease: Yes (Renal insufficiency ) Hx Arthritis: Yes Hx COPD: Yes Additional medical history: tremors, pancreatitis - Surgical History Past Surgical History?: Yes Hx Pacemaker: No Hx Internal Defibrillator: No Hx Breast Surgery: Yes (CYST) Additional Surgical History: Amputated 3rd toe left foot. - Family History Family history: no significant - Social History Smoking Status: Current Every Day Smoker Substance Use Type: None - Medications Home Medications: Home Medications Medication Instructions Recorded Confirmed Last Taken Type Clopidogrel [Plavix] 75 mg PO QDAY 02/21/18 04/16/18 Unknown History Gabapentin [Neurontin] 400 mg PO Q8HR 02/21/18 04/13/18 Unknown History amLODIPine [Norvasc] 10 mg PO DAILY 02/21/18 04/13/18 Unknown History traMADol [Ultram 50 MG tab] 50 mg PO Q6HR PRN 02/21/18 04/13/18 Unknown History Metoprolol [Lopressor TAB] 50 mg PO BID tablet 03/14/18 04/13/18 Unknown Rx QUEtiapine [SEROquel] 50 mg PO HS tablet 03/14/18 04/13/18 Unknown Rx Pantoprazole [Protonix TAB] 40 mg PO BID #60 tablet 04/04/18 04/13/18 Unknown Rx Ferrous Sulfate [Feosol 325 MG tab] 325 mg PO BID #60 tablet 04/07/18 04/16/18 Unknown Rx ALBUTEROL Inhaler(NF) [VENTOLIN 1 puff IH QID PRN #1 inha 04/25/18 Unknown Rx Inhaler(NF)] Nicotine [Habitrol] 21 mg TD DAILY #30 patch 04/25/18 Unknown Rx guaiFENesin ER [Mucinex ER] 600 mg PO BID #20 tablet 04/25/18 Unknown Rx hydrALAZINE [Apresoline TAB] 25 mg PO Q8HR #90 tablet 04/25/18 Unknown Rx ED Physical Exam - General Limitations: Altered Mental Status General appearance: alert, in no apparent distress - Head Head exam: Present: atraumatic, normocephalic - Eye Eye exam: Present: normal appearance - ENT ENT exam: Present: mucous membranes moist - Neck Neck exam: Present: normal inspection - Respiratory Respiratory exam: Present: normal lung sounds bilaterally. Absent: respiratory distress - Cardiovascular Cardiovascular Exam: Present: regular rate, normal rhythm. Absent: systolic murmur, diastolic murmur, rubs, gallop - GI/Abdominal GI/Abdominal exam: Present: soft, normal bowel sounds - Extremities Exam Extremities exam: Present: normal inspection - Back Exam Back exam: Present: normal inspection - Neurological Exam Neurological exam: Present: alert, altered - Skin Skin exam: Present: warm, dry, intact, normal color, ecchymosis (multiple sites of bruising. Patient also has a ecchymosis under her left eye). Absent: rash - Assessment Assessment Interval: Baseline - Level of Consciousness 1a. Level of Consciousness: alert/keenly responsive - LOC Questions 1b. LOC Questions: answers both correctly - LOC Command 1c. LOC Commands: performs tasks correctly - Best Gaze 2. Best Gaze: normal - Visual 3. Visual: no visual loss - Facial Palsy 4. Facial Palsy: normal symmetrical movement - Motor Arm 5b. Motor Arm Right: no drift 5a. Motor Arm Left: no drift - Motor Leg 6b. Motor Leg Right: no drift 6a. Motor Leg Left: no drift - Limb Ataxia 7. Limb Ataxia: absent - Sensory 8. Sensory: normal - Best Language 9. Best Language: no aphasia - Dysarthria 10. Dysarthria: normal - Extinction and Inattention 11. Extinction/Inattention: no abnormality - Scoring Total Score: 0 Stroke Severity: No Stroke Symptoms ED Course Vital Signs 05/09/18 05/09/18 05/09/18 17:17 17:23 17:30 Temperature 98.5 F Pulse Rate 165 H 113 H 109 H Respiratory 16 Rate Blood Pressure 116/67 137/65 O2 Sat by Pulse 97 96 Oximetry 05/09/18 05/09/18 05/09/18 18:30 18:33 18:45 Temperature Pulse Rate 111 H 114 H 122 H Respiratory Rate Blood Pressure 150/66 150/66 150/66 O2 Sat by Pulse 99 99 99 Oximetry 0305/09/18 05/09/18 19:01 19:15 19:31 Temperature Pulse Rate 120 H 136 H 141 H Respiratory Rate Blood Pressure 132/67 132/67 132/67 O2 Sat by Pulse 97 99 96 Oximetry 05/09/18 05/09/18 05/09/18 19:45 20:01 20:15 Temperature Pulse Rate 122 H 124 H 115 H Respiratory 37 H 37 H Rate Blood Pressure 122/68 107/64 107/64 O2 Sat by Pulse 90 90 95 Oximetry 05/09/18 05/09/18 05/09/18 20:30 20:45 21:00 Temperature Pulse Rate 116 H 112 H Respiratory 21 44 H 19 Rate Blood Pressure 97/60 97/60 136/65 O2 Sat by Pulse 94 100 24 L Oximetry 05/09/18 05/09/18 05/09/18 21:15 21:30 21:45 Temperature Pulse Rate 112 H 119 H 114 H Respiratory 27 H 30 H 23 Rate Blood Pressure 136/65 128/74 128/74 O2 Sat by Pulse 64 L 100 99 Oximetry 05/09/18 05/09/18 05/09/18 21:55 22:00 22:15 Temperature Pulse Rate 119 H 118 H 121 H Respiratory 29 H 15 Rate Blood Pressure 156/77 140/70 140/70 O2 Sat by Pulse 97 100 Oximetry 05/09/18 05/09/18 05/09/18 22:30 22:45 23:01 Temperature Pulse Rate 102 H 104 H 103 H Respiratory 36 H 22 35 H Rate Blood Pressure 151/66 151/66 140/47 O2 Sat by Pulse 100 96 98 Oximetry 05/09/18 05/09/18 05/09/18 23:15 23:31 23:45 Temperature Pulse Rate 107 H 112 H 117 H Respiratory 33 H 27 H 25 H Rate Blood Pressure 140/47 140/47 101/48 O2 Sat by Pulse 97 98 Oximetry 05/10/18 05/10/18 05/10/18 00:01 00:15 00:31 Temperature Pulse Rate 119 H 118 H 116 H Respiratory 19 16 22 Rate Blood Pressure 101/48 101/48 101/48 O2 Sat by Pulse Oximetry 05/10/18 05/10/18 00:45 01:01 Temperature Pulse Rate 118 H 120 H Respiratory 19 24 Rate Blood Pressure 74/48 121/78 O2 Sat by Pulse Oximetry - Reevaluation(s) Reevaluation #1: Initial evaluation done. It is unclear how effective the patient is because patient is a poor historian. Patient is altered. Patient is A&O 2. 05/09/18 17:35 Patient noted to have large bowel movement and large amount of bright red blood noted per rectum. 05/09/18 20:58 - Consultations Consultation #1: Hospitalist consulted for admission. Hospitalist to admit patient and assume care of patient. 05/09/18 21:20 Consultation #2: GI consulted and will see patient in the morning. No further recommendations per Dr. Torres Baker. Patient will be nothing by mouth after midnight 05/09/18 21:25 - Lab Data Result diagrams: 05/10/18 00:59 05/09/18 17:48 Lab Results 05/09/18 05/09/18 05/09/18 Range/Units 17:47 17:47 17:47 WBC 14.1 H (4.5-11.0) K/mm3 RBC 2.75 L (3.65-5.03) M/mm3 Hgb 8.8 L (10.1-14.3) gm/dl Hct 26.6 L (30.3-42.9) % MCV 97 (79-97) fl MCH 32 (28-32) pg MCHC 33 (30-34) % RDW 14.6 (13.2-15.2) % Plt Count 232 (140-440) K/mm3 Lymph % (Auto) 11.7 L (13.4-35.0) % [place] % (Auto) 8.5 H (0.0-7.3) % Eos % (Auto) 0.2 (0.0-4.3) % Baso % (Auto) 0.6 (0.0-1.8) % Lymph # 1.6 (1.2-5.4) K/mm3 [place] # 1.2 H (0.0-0.8) K/mm3 Eos # 0.0 (0.0-0.4) K/mm3 Baso # 0.1 (0.0-0.1) K/mm3 Seg Neutrophils % 79.0 H (40.0-70.0) % Seg Neutrophils # 11.2 H (1.8-7.7) K/mm3 PT (12.2-14.9) Sec. INR (0.87-1.13) APTT (24.2-36.6) Sec. Sodium (137-145) mmol/L Potassium (3.6-5.0) mmol/L Chloride (98-107) mmol/L Carbon Dioxide (22-30) mmol/L Anion Gap mmol/L BUN (7-17) mg/dL Creatinine (0.7-1.2) mg/dL Estimated GFR ml/min BUN/Creatinine Ratio % Glucose (65-100) mg/dL Lactic Acid 1.00 (0.7-2.0) mmol/L Calcium (8.4-10.2) mg/dL Total Bilirubin (0.1-1.2) mg/dL AST (5-40) units/L ALT (7-56) units/L Alkaline Phosphatase (35-129) units/L Total Creatine Kinase (30-135) units/L Troponin T (0.00-0.029) ng/mL Total Protein (6.3-8.2) g/dL Albumin (3.9-5) g/dL Albumin/Globulin Ratio % Triglycerides (2-149) mg/dL Cholesterol (50-199) mg/dL LDL Cholesterol Direct (50-130) mg/dL HDL Cholesterol (40-59) mg/dL Cholesterol/HDL Ratio % Urine Color (Yellow) Urine Turbidity (Clear) Urine pH (5.0-7.0) Ur Specific [place] (1.003-1.030) Urine Protein (Negative) mg/dL Urine Glucose (UA) (Negative) mg/dL Urine Ketones (Negative) mg/dL Urine Blood (Negative) Urine Nitrite (Negative) Urine Bilirubin (Negative) Urine Urobilinogen (<2.0) mg/dL Ur Leukocyte Esterase (Negative) Urine WBC (Auto) (0.0-6.0) /HPF Urine RBC (Auto) (0.0-6.0) /HPF U Epithel Cells (Auto) (0-13.0) /HPF Urine Bacteria (Auto) (Negative) /HPF Salicylates < 0.3 L (2.8-20.0) mg/dL Urine Opiates Screen Urine Methadone Screen Acetaminophen (10.0-30.0) ug/mL Ur Barbiturates Screen Ur Phencyclidine Scrn Ur Amphetamines Screen U Benzodiazepines Scrn Urine Cocaine Screen U Marijuana (THC) Screen Drugs of Abuse Note Plasma/Serum Alcohol (0-0.07) % Blood Type Antibody Screen 05/09/18 05/09/18 05/09/18 Range/Units 17:47 17:48 17:54 WBC (4.5-11.0) K/mm3 RBC (3.65-5.03) M/mm3 Hgb (10.1-14.3) gm/dl Hct (30.3-42.9) % MCV (79-97) fl MCH (28-32) pg MCHC (30-34) % RDW (13.2-15.2) % Plt Count (140-440) K/mm3 Lymph % (Auto) (13.4-35.0) % [place] % (Auto) (0.0-7.3) % Eos % (Auto) (0.0-4.3) % Baso % (Auto) (0.0-1.8) % Lymph # (1.2-5.4) K/mm3 [place] # (0.0-0.8) K/mm3 Eos # (0.0-0.4) K/mm3 Baso # (0.0-0.1) K/mm3 Seg Neutrophils % (40.0-70.0) % Seg Neutrophils # (1.8-7.7) K/mm3 PT (12.2-14.9) Sec. INR (0.87-1.13) APTT (24.2-36.6) Sec. Sodium 140 (137-145) mmol/L Potassium 5.0 (3.6-5.0) mmol/L Chloride 101.9 (98-107) mmol/L Carbon Dioxide 23 (22-30) mmol/L Anion Gap 20 mmol/L BUN 25 H (7-17) mg/dL Creatinine 1.2 (0.7-1.2) mg/dL Estimated GFR 45 ml/min BUN/Creatinine Ratio 21 % Glucose 137 H (65-100) mg/dL Lactic Acid (0.7-2.0) mmol/L Calcium 8.5 (8.4-10.2) mg/dL Total Bilirubin 0.20 (0.1-1.2) mg/dL AST 38 (5-40) units/L ALT 14 (7-56) units/L Alkaline Phosphatase 78 (35-129) units/L Total Creatine Kinase 1528 H (30-135) units/L Troponin T 0.141 H* (0.00-0.029) ng/mL Total Protein 5.7 L (6.3-8.2) g/dL Albumin 2.9 L (3.9-5) g/dL Albumin/Globulin Ratio 1.0 % Triglycerides 130 (2-149) mg/dL Cholesterol 196 (50-199) mg/dL LDL Cholesterol Direct 133 H (50-130) mg/dL HDL Cholesterol 39 L (40-59) mg/dL Cholesterol/HDL Ratio 5.02 % Urine Color (Yellow) Urine Turbidity (Clear) Urine pH (5.0-7.0) Ur Specific [place] (1.003-1.030) Urine Protein (Negative) mg/dL Urine Glucose (UA) (Negative) mg/dL Urine Ketones (Negative) mg/dL Urine Blood (Negative) Urine Nitrite (Negative) Urine Bilirubin (Negative) Urine Urobilinogen (<2.0) mg/dL Ur Leukocyte Esterase (Negative) Urine WBC (Auto) (0.0-6.0) /HPF Urine RBC (Auto) (0.0-6.0) /HPF U Epithel Cells (Auto) (0-13.0) /HPF Urine Bacteria (Auto) (Negative) /HPF Salicylates (2.8-20.0) mg/dL Urine Opiates Screen Urine Methadone Screen Acetaminophen < 5.0 L (10.0-30.0) ug/mL Ur Barbiturates Screen Ur Phencyclidine Scrn Ur Amphetamines Screen U Benzodiazepines Scrn Urine Cocaine Screen U Marijuana (THC) Screen Drugs of Abuse Note Plasma/Serum Alcohol < 0.01 (0-0.07) % Blood Type Antibody Screen 05/09/18 05/09/18 05/09/18 Range/Units 18:27 18:27 21:33 WBC (4.5-11.0) K/mm3 RBC (3.65-5.03) M/mm3 Hgb (10.1-14.3) gm/dl Hct (30.3-42.9) % MCV (79-97) fl MCH (28-32) pg MCHC (30-34) % RDW (13.2-15.2) % Plt Count (140-440) K/mm3 Lymph % (Auto) (13.4-35.0) % [place] % (Auto) (0.0-7.3) % Eos % (Auto) (0.0-4.3) % Baso % (Auto) (0.0-1.8) % Lymph # (1.2-5.4) K/mm3 [place] # (0.0-0.8) K/mm3 Eos # (0.0-0.4) K/mm3 Baso # (0.0-0.1) K/mm3 Seg Neutrophils % (40.0-70.0) % Seg Neutrophils # (1.8-7.7) K/mm3 PT 15.3 H (12.2-14.9) Sec. INR 1.14 H (0.87-1.13) APTT 29.9 (24.2-36.6) Sec. Sodium (137-145) mmol/L Potassium (3.6-5.0) mmol/L Chloride (98-107) mmol/L Carbon Dioxide (22-30) mmol/L Anion Gap mmol/L BUN (7-17) mg/dL Creatinine (0.7-1.2) mg/dL Estimated GFR ml/min BUN/Creatinine Ratio % Glucose (65-100) mg/dL Lactic Acid (0.7-2.0) mmol/L Calcium (8.4-10.2) mg/dL Total Bilirubin (0.1-1.2) mg/dL AST (5-40) units/L ALT (7-56) units/L Alkaline Phosphatase (35-129) units/L Total Creatine Kinase (30-135) units/L Troponin T (0.00-0.029) ng/mL Total Protein (6.3-8.2) g/dL Albumin (3.9-5) g/dL Albumin/Globulin Ratio % Triglycerides (2-149) mg/dL Cholesterol (50-199) mg/dL LDL Cholesterol Direct (50-130) mg/dL HDL Cholesterol (40-59) mg/dL Cholesterol/HDL Ratio % Urine Color Yellow (Yellow) Urine Turbidity Clear (Clear) Urine pH 6.0 (5.0-7.0) Ur Specific [place] 1.016 (1.003-1.030) Urine Protein >500 (Negative) mg/dL Urine Glucose (UA) Neg (Negative) mg/dL Urine Ketones Tr (Negative) mg/dL Urine Blood Neg (Negative) Urine Nitrite Neg (Negative) Urine Bilirubin Neg (Negative) Urine Urobilinogen < 2.0 (<2.0) mg/dL Ur Leukocyte Esterase Neg (Negative) Urine WBC (Auto) 3.0 (0.0-6.0) /HPF Urine RBC (Auto) 2.0 (0.0-6.0) /HPF U Epithel Cells (Auto) 1.0 (0-13.0) /HPF Urine Bacteria (Auto) 1+ (Negative) /HPF Salicylates (2.8-20.0) mg/dL Urine Opiates Screen Presumptive negative Urine Methadone Screen Presumptive negative Acetaminophen (10.0-30.0) ug/mL Ur Barbiturates Screen Presumptive negative Ur Phencyclidine Scrn Presumptive negative Ur Amphetamines Screen Presumptive negative U Benzodiazepines Scrn Presumptive positive Urine Cocaine Screen Presumptive negative U Marijuana (THC) Screen Presumptive negative Drugs of Abuse Note Disclamer Plasma/Serum Alcohol (0-0.07) % Blood Type Antibody Screen 05/09/18 Range/Units 21:33 WBC (4.5-11.0) K/mm3 RBC (3.65-5.03) M/mm3 Hgb (10.1-14.3) gm/dl Hct (30.3-42.9) % MCV (79-97) fl MCH (28-32) pg MCHC (30-34) % RDW (13.2-15.2) % Plt Count (140-440) K/mm3 Lymph % (Auto) (13.4-35.0) % [place] % (Auto) (0.0-7.3) % Eos % (Auto) (0.0-4.3) % Baso % (Auto) (0.0-1.8) % Lymph # (1.2-5.4) K/mm3 [place] # (0.0-0.8) K/mm3 Eos # (0.0-0.4) K/mm3 Baso # (0.0-0.1) K/mm3 Seg Neutrophils % (40.0-70.0) % Seg Neutrophils # (1.8-7.7) K/mm3 PT (12.2-14.9) Sec. INR (0.87-1.13) APTT (24.2-36.6) Sec. Sodium (137-145) mmol/L Potassium (3.6-5.0) mmol/L Chloride (98-107) mmol/L Carbon Dioxide (22-30) mmol/L Anion Gap mmol/L BUN (7-17) mg/dL Creatinine (0.7-1.2) mg/dL Estimated GFR ml/min BUN/Creatinine Ratio % Glucose (65-100) mg/dL Lactic Acid (0.7-2.0) mmol/L Calcium (8.4-10.2) mg/dL Total Bilirubin (0.1-1.2) mg/dL AST (5-40) units/L ALT (7-56) units/L Alkaline Phosphatase (35-129) units/L Total Creatine Kinase (30-135) units/L Troponin T (0.00-0.029) ng/mL Total Protein (6.3-8.2) g/dL Albumin (3.9-5) g/dL Albumin/Globulin Ratio % Triglycerides (2-149) mg/dL Cholesterol (50-199) mg/dL LDL Cholesterol Direct (50-130) mg/dL HDL Cholesterol (40-59) mg/dL Cholesterol/HDL Ratio % Urine Color (Yellow) Urine Turbidity (Clear) Urine pH (5.0-7.0) Ur Specific [place] (1.003-1.030) Urine Protein (Negative) mg/dL Urine Glucose (UA) (Negative) mg/dL Urine Ketones (Negative) mg/dL Urine Blood (Negative) Urine Nitrite (Negative) Urine Bilirubin (Negative) Urine Urobilinogen (<2.0) mg/dL Ur Leukocyte Esterase (Negative) Urine WBC (Auto) (0.0-6.0) /HPF Urine RBC (Auto) (0.0-6.0) /HPF U Epithel Cells (Auto) (0-13.0) /HPF Urine Bacteria (Auto) (Negative) /HPF Salicylates (2.8-20.0) mg/dL Urine Opiates Screen Urine Methadone Screen Acetaminophen (10.0-30.0) ug/mL Ur Barbiturates Screen Ur Phencyclidine Scrn Ur Amphetamines Screen U Benzodiazepines Scrn Urine Cocaine Screen U Marijuana (THC) Screen Drugs of Abuse Note Plasma/Serum Alcohol (0-0.07) % Blood Type B NEGATIVE Antibody Screen Negative - EKG Data EKG shows normal: sinus rhythm, axis, intervals, QRS complexes, ST-T waves Rate: tachycardia - Radiology Data Radiology results: report reviewed PROCEDURE: CT HEAD/BRAIN WO CON TECHNIQUE: Computerized tomography of the head was performed without contrast ma ejial. CT DOSE LENGTH PRODUCT: mGycm HISTORY: ams COMPARISONS: None . FINDINGS: Skull and scalp: Normal . Paranasal sinuses: Bilateral paranasal sinuses are clear. There is partial opacification of left mastoid air cells as seen on the prior study. . Ventricles and subarachnoid spaces: Prominent consistent with cerebral atrophy appropriate for patient's age. . Cerebrum: Mild degree of bilateral periventricular nonspecific white matter hypodensity is noted most likely representing chronic microangiopathy.. An acute intra-axial or extra-axial hemorrhage or mass effect is not identified.. Cerebellum and brainstem: No evidence of hemorrhage, acute infarction or mass . Vasculature: Atherosclerotic calcification is noted involving the internal carotid and vertebral arteries. . Other: None . ASPECTS: 10 IMPRESSION: No acute intracranial abnormality Partial opacification of left mastoid air cells represent left mastoiditis which is unchanged since the prior study.. - Medical Decision Making Patient is a 67-year-old female that presents emergency room with complaints of altered mental status. Patient is a poor historian. Patient does not answer questions properly. Patient was found to have anemia. While in ER patient had a bright red blood bowel movement. GI bleed would account for the patient's anemia. Patient's labs are unremarkable except for elevated troponin, elevated CK, Renal insufficiency. Patient on exam noted to have multiple sites of ecchymosis and bruising. Patient did not come with the med list. She had a he ad CT which was negative. GI was consulted. Hospitalist consulted for admission. Hospitalist to admit patient. - Differential Diagnosis anemia. Altered mental status. Dehydration UTI. Critical Care Time: Yes Critical care attestation.: If time is entered above; I have spent that time in minutes in the direct care o f this critically ill patient, excluding procedure time. Critical Care Time: 45 minutes ED Disposition Clinical Impression: Acute blood loss anemia, Elevated troponin Altered mental status Qualifiers: Altered mental status type: unspecified Qualified Code(s): R41.82 - Altered mental status, unspecified CKD (chronic kidney disease) Qualifiers: Chronic kidney disease stage: unspecified stage Qualified Code(s): N18.9 - Chronic kidney disease, unspecified GI (gastrointestinal bleed) Qualifiers: GI bleed type/associated pathology: anorectal hemorrhage Qualified Code(s): K62.5 - Hemorrhage of anus and rectum Disposition: -09 OP ADMIT IP TO THIS HOSP Is pt being admited?: Yes Does the pt Need Aspirin: No Condition: Critical Time of Disposition: 21:27
[2018-05-09 18:16] LABS: Basophils # (Auto) 0.1 K/mm3 (0.0-0.1); Basophils % (Auto) 0.6 % (0.0-1.8); Eosinophils % (Auto) 0.2 % (0.0-4.3); Hematocrit 26.6 % (30.3-42.9); Hemoglobin 8.8 gm/dl (10.1-14.3); Lymphocytes # (Auto) 1.6 K/mm3 (1.2-5.4); Lymphocytes % (Auto) 11.7 % (13.4-35.0); Mean Corpuscular HGB Conc 33 % (30-34); Mean Corpuscular Volume 97 fl (79-97); Monocytes # (Auto) 1.2 K/mm3 (0.0-0.8); Monocytes % (Auto) 8.5 % (0.0-7.3); Platelet Count 232 K/mm3 (140-440); Red Blood Count 2.75 M/mm3 (3.65-5.03); Red Cell Distribution Width 14.6 % (13.2-15.2)
[2018-05-09 18:37] LABS: Albumin 2.9 g/dL (3.9-5); Calcium 8.5 mg/dL (8.4-10.2)
[2018-05-09] MEDS ORDERED: NACL 0.9% 1000 ML 1,000 ML IV ONE (18:43)
[2018-05-09 18:45] LABS: Bacteria,Urine 1+ /HPF (Negative); Bilirubin,Urine NEG (Negative); Blood,Urine NEG (Negative); Color,Urine Yellow (Yellow); Urobilinogen,Urine < 2.0 mg/dL (<2.0)
[2018-05-09 18:54] LABS: Chol/HDL Ratio 5.02 %
[2018-05-09 18:57] LABS: Protein,Urine >500 mg/dL (Negative)
[2018-05-09 19:05] LABS: Amphetamine Screen,Urine PRESUMPTIVE NEGATIVE
[2018-05-09 19:06] LABS: Benzodiazepines Screen,Urine PRESUMPTIVE POSITIVE; Cannabinoid Screen,Urine PRESUMPTIVE NEGATIVE; Cocaine Screen,Urine PRESUMPTIVE NEGATIVE; Methadone Screen,Urine PRESUMPTIVE NEGATIVE; Opiate Screen,Urine PRESUMPTIVE NEGATIVE
--- NOTE | 2018-05-09 20:20 | Cat Scan Report ---
PROCEDURE: CT HEAD/BRAIN WO CON TECHNIQUE: Computerized tomography of the head was performed without contrast material. CT DOSE LENGTH PRODUCT: mGycm HISTORY: ams COMPARISONS: None . FINDINGS: Skull and scalp: Normal . Paranasal sinuses: Bilateral paranasal sinuses are clear. There is partial opacification of left mas toid air cells as seen on the prior study. . Ventricles and subarachnoid spaces: Prominent consistent with cerebral atrophy appropriate for patie nt's age. . Cerebrum: Mild degree of bilateral periventricular nonspecific white matter hypodensity is noted most likely representing chronic microangiopathy.. An acute intra-axial or extra-axial hemorrhage or mass effect is not identified.. Cerebellum and brainstem: No evidence of hemorrhage, acute infarction or mass . Vasculature: Atherosclerotic calcification is noted involving the internal carotid and vertebral art eries. . Other: None . ASPECTS: 10 IMPRESSION: No acute intracranial abnormality Partial opacification of left mastoid air cells represent left mastoiditis which is unchanged since t he prior study.. This document is electronically signed by Horace Mcmillan MD., May 09 2018 08:18:21 PM ET
[2018-05-09] MEDS ORDERED: LOPRESSOR IV ONE (21:55)
[2018-05-09 21:59] LABS: INR 1.14 (0.87-1.13)
[2018-05-09 22:00] LABS: Partial Thromboplastin Time 29.9 Sec. (24.2-36.6)
[2018-05-09] MEDS ORDERED: NACL 0.9% 1000 ML 1,000 ML IV SCH (22:00)
[2018-05-09 22:24] LABS: Hematocrit 25.4 % (30.3-42.9); Hemoglobin 8.4 gm/dl (10.1-14.3)
[2018-05-09] MEDS ORDERED: ZOFRAN IV PRN (23:35)
[2018-05-09] MEDS ORDERED: TYLENOL PO PRN (23:35)
[2018-05-09] MEDS ORDERED: SODIUM CHLORIDE FLUSH SYRINGE 10 ML IV PRN (23:35)
--- NOTE | 2018-05-09 23:35 | History and Physical Report ---
History of Present Illness Date of examination: 05/09/18 Date of admission: 05/09/18 21:55 History of present illness: 67-year-old woman history of hypertension, diabetes, chronic kidney disease, COPD, bipolar, CVA, duodenal ulcer was brought to the emergency room for evaluation. Patient is unable to give a history, the nurse reported that she has dark stools. Review of system is unobtainable PAST MEDICAL HISTORY: hypertension, diabetes, chronic kidney disease, COPD, bipolar, CVA, GI bleed, duodenal ulcer PAST SURGICAL HISTORY: Unknown SOCIAL HISTORY: Unknown FAMILY HISTORY: Unknown Medications and Allergies Allergies Allergy/AdvReac Type Severity Reaction Status Date / Time Sulfa (Sulfonamide Allergy Rash Verified 05/09/18 17:10 Antibiotics) Home Medications Medication Instructions Recorded Confirmed Last Taken Type Clopidogrel [Plavix] 75 mg PO QDAY 02/21/18 04/16/18 Unknown History Gabapentin [Neurontin] 400 mg PO Q8HR 02/21/18 04/13/18 Unknown History amLODIPine [Norvasc] 10 mg PO DAILY 02/21/18 04/13/18 Unknown History traMADol [Ultram 50 MG tab] 50 mg PO Q6HR PRN 02/21/18 04/13/18 Unknown History Metoprolol [Lopressor TAB] 50 mg PO BID tablet 03/14/18 04/13/18 Unknown Rx QUEtiapine [SEROquel] 50 mg PO HS tablet 03/14/18 04/13/18 Unknown Rx Pantoprazole [Protonix TAB] 40 mg PO BID #60 tablet 04/04/18 04/13/18 Unknown Rx Ferrous Sulfate [Feosol 325 MG tab] 325 mg PO BID #60 tablet 04/07/18 04/16/18 Unknown Rx ALBUTEROL Inhaler(NF) [VENTOLIN 1 puff IH QID PRN #1 inha 04/25/18 Unknown Rx Inhaler(NF)] Nicotine [Habitrol] 21 mg TD DAILY #30 patch 04/25/18 Unknown Rx guaiFENesin ER [Mucinex ER] 600 mg PO BID #20 tablet 04/25/18 Unknown Rx hydrALAZINE [Apresoline TAB] 25 mg PO Q8HR #90 tablet 04/25/18 Unknown Rx Active Meds: Active Medications Sodium Chloride (Nacl 0.9% 1000 Ml) 1,000 mls @ 75 mls/hr IV DIRECT LUDA Exam - Physical Exam Narrative exam: General Apperance: The patient lying in bed, breathing comfortable HEENT: Normocephalic, atraumatic bruise under the left eye. Pupils equally round and reactive to light, EOMI, no sclericterus or JVD or thyromegaly or nodule. , no carotid bruit, mucous membranes moist, no exudate or erythema Heart: S1-S2, regular is rhythm Lungs: Clear to auscultation bilaterally, breathing comfortable Abdomen: Positive bowel sounds, soft, nontender, nondistended, no organomegaly Extremities: No edema cyanosis clubbing Skin: no rash, nodule, warm and dry Neuro speech is fluent, difficult to assess - Constitutional Vitals: Temp Pulse Resp BP Pulse Ox 98.5 F 111 H 16 150/66 99 05/09/18 17:23 05/09/18 18:30 05/09/18 17:23 05/09/18 18:30 05/09/18 18:30 Results - Labs CBC & Chem 7: 05/10/18 04:21 05/09/18 17:48 Labs: Abnormal lab results 05/09/18 05/09/18 05/09/18 Range/Units 17:47 17:47 17:47 WBC 14.1 H (4.5-11.0) K/mm3 RBC 2.75 L (3.65-5.03) M/mm3 Hgb 8.8 L (10.1-14.3) gm/dl Hct 26.6 L (30.3-42.9) % Lymph % (Auto) 11.7 L (13.4-35.0) % [place] % (Auto) 8.5 H (0.0-7.3) % [place] # 1.2 H (0.0-0.8) K/mm3 Seg Neutrophils % 79.0 H (40.0-70.0) % Seg Neutrophils # 11.2 H (1.8-7.7) K/mm3 PT (12.2-14.9) Sec. INR (0.87-1.13) BUN (7-17) mg/dL Glucose (65-100) mg/dL Total Creatine Kinase (30-135) units/L Troponin T (0.00-0.029) ng/mL Total Protein (6.3-8.2) g/dL Albumin (3.9-5) g/dL LDL Cholesterol Direct (50-130) mg/dL HDL Cholesterol (40-59) mg/dL Salicylates < 0.3 L (2.8-20.0) mg/dL Acetaminophen < 5.0 L (10.0-30.0) ug/mL 05/09/18 05/09/18 05/09/18 Range/Units 17:48 21:33 22:09 WBC (4.5-11.0) K/mm3 RBC (3.65-5.03) M/mm3 Hgb 8.4 L (10.1-14.3) gm/dl Hct 25.4 L (30.3-42.9) % Lymph % (Auto) (13.4-35.0) % [place] % (Auto) (0.0-7.3) % [place] # (0.0-0.8) K/mm3 Seg Neutrophils % (40.0-70.0) % Seg Neutrophils # (1.8-7.7) K/mm3 PT 15.3 H (12.2-14.9) Sec. INR 1.14 H (0.87-1.13) BUN 25 H (7-17) mg/dL Glucose 137 H (65-100) mg/dL Total Creatine Kinase 1528 H (30-135) units/L Troponin T 0.141 H* (0.00-0.029) ng/mL Total Protein 5.7 L (6.3-8.2) g/dL Albumin 2.9 L (3.9-5) g/dL LDL Cholesterol Direct 133 H (50-130) mg/dL HDL Cholesterol 39 L (40-59) mg/dL Salicylates (2.8-20.0) mg/dL Acetaminophen (10.0-30.0) ug/mL - Imaging and Cardiology CT Scan - head: report reviewed Assessment and Plan Assessment GI bleed Anemia, acute on chronic Abnormal cardiac enzymes Abdomen eyes SIRS Diabetes Chronic kidney disease Plan Admit to medicine consult GI, start Protonix, check serial hemoglobin Check cardiac enzymes, consult cardiology,Start IV fluid Check fingersticks and initiate insulin sliding scale DVT prophylaxis Addendum Hemoglobin steadily declined, transfuse blood change Protonix IV to a Protonix drip Will update GI, start hector nolasco
[2018-05-10] MEDS ORDERED: NACL 0.9% 1000 ML 1,000 ML IV SCH (00:30)
[2018-05-10] MEDS ORDERED: PROTONIX IV SCH (01:00)
[2018-05-10 01:47] LABS: Hematocrit 21.1 % (30.3-42.9)
[2018-05-10 02:19] LABS: Creatine Kinase MB 2.7 ng/mL (0.0-4.0)
[2018-05-10] MEDS ORDERED: PROTONIX IV ONE (03:50)
[2018-05-10] MEDS ORDERED: NACL 0.9% 1000 ML 1,000 ML ONE ×3 (03:51→10:02)
[2018-05-10 04:40] LABS: Mean Corpuscular HGB Conc 33 % (30-34); Mean Corpuscular Volume 97 fl (79-97); Platelet Count 224 K/mm3 (140-440); Red Blood Count 1.71 M/mm3 (3.65-5.03); Red Cell Distribution Width 14.9 % (13.2-15.2)
[2018-05-10 04:43] LABS: Hematocrit 16.6 % (30.3-42.9); Hemoglobin 5.5 gm/dl (10.1-14.3); Lymphocytes % (Auto) 19.1 % (13.4-35.0)
[2018-05-10 04:44] LABS: Basophils # (Auto) 0.2 K/mm3 (0.0-0.1); Basophils % (Auto) 1.3 % (0.0-1.8); Eosinophils # (Auto) 0.1 K/mm3 (0.0-0.4); Lymphocytes # (Auto) 2.3 K/mm3 (1.2-5.4); Monocytes % (Auto) 8.3 % (0.0-7.3)
[2018-05-10] MEDS ORDERED: NACL 0.9% 500 ML 500 ML IV ONE (04:46)
[2018-05-10 05:10] LABS: Calcium 7.4 mg/dL (8.4-10.2)
[2018-05-10 05:36] LABS: Hemoglobin 5.6 gm/dl (10.1-14.3)
[2018-05-10 05:37] LABS: Hematocrit 17.4 % (30.3-42.9)
[2018-05-10] MEDS ORDERED: ZOSYN/NS 3.375GM/50ML 3.375 GM/50 ML BAG IV SCH (06:00)
[2018-05-10] MEDS: ZOSYN/NS 3.375GM/50ML 3.375 GM/50 ML BAG IV SCH ×2 (06:05→18:21)
[2018-05-10] MEDS: PROTONIX 80 MG in NACL 0.9% 100 ML IV SCH (06:10)
[2018-05-10 06:41] LABS: Creatine Kinase MB 2.2 ng/mL (0.0-4.0)
--- NOTE | 2018-05-10 08:20 | Gastroenterology Consultation ---
History of Present Illness - Reason for Consult Consult date: 05/10/18 GI bleed Requesting physician: KASEY BENNETT - History of Present Illness Ms Rankin is a 67 yo wf who presents with AMS and found to have hematochezia upon arrival to the ED. Pt is confused at the time of exam (unknown baseline), and history was gathered from chart review and staff. pt has had episodes of maroon blood per rectum since arrival to ED with drop in H/H. Currently receiving blood transfusions. She is unable to provide history regarding when bleeding started, or other details. She was recently in the hospital for GI bleeding along with AMS; an EGD was performed which showed a large duodenal ulcer without high risk bleeding stigmata. On admission, pt noted to have in creasing BUN levels, currently on protonix drip. Past History Past Medical History: other (unable to obtain) Past Surgical History: Other (unable to obtain) Social history: other (unable to obtain) Family history: other Medications and Allergies Allergies Allergy/AdvReac Type Severity Reaction Status Date / Time Sulfa (Sulfonamide Allergy Rash Verified 05/09/18 17:10 Antibiotics) Home Medications Medication Instructions Recorded Confirmed Last Taken Type Gabapentin [Neurontin] 400 mg PO Q8HR 02/21/18 05/10/18 Unknown History amLODIPine [Norvasc] 10 mg PO DAILY 02/21/18 05/10/18 Unknown History traMADol [Ultram 50 MG tab] 50 mg PO Q8H PRN 02/21/18 05/10/18 Unknown History Aspirin 325 mg PO DAILY 05/10/18 05/10/18 Unknown History Clopidogrel Bisulfate [Plavix] 75 mg PO DAILY 05/10/18 05/10/18 Unknown History Diazepam [Valium] 10 mg PO BID 05/10/18 05/10/18 Unknown History Ipratropium/Albuter (Nf) 3 mcg IH TID 05/10/18 05/10/18 Unknown History [Combivent Inhaler] Lisinopril [Zestril] 20 mg PO DAILY 05/10/18 05/10/18 Unknown History Meloxicam 15 mg PO DAILY 05/10/18 05/10/18 Unknown History QUEtiapine [SEROquel] 100 mg PO HS 05/10/18 05/10/18 Unknown History metFORMIN 500 mg PO DAILY 05/10/18 05/10/18 Unknown History Active Meds: Active Medications Acetaminophen (Tylenol) 650 mg PO Q4H PRN PRN Reason: Pain MILD(1-3)/Fever >100.5/[place] Sodium Chloride (Nacl 0.9% 1000 Ml) 1,000 mls @ 50 mls/hr IV DIRECT LUDA Last Admin: 05/10/18 00:58 Dose: 50 mls/hr Documented by: Pantoprazole Sodium 80 mg/ (Sodium Chloride) 100 mls @ 10 mls/hr IV DIRECT LUDA Last Admin: 05/10/18 06:10 Dose: 8 mg/hr, 10 mls/hr Documented by: Piperacillin Sod/Tazobactam Sod (Zosyn/Ns 3.375gm/50ml) 3.375 gm in 50 mls @ 100 mls/hr IV Q8HR LUDA; Protocol Last Admin: 05/10/18 06:05 Dose: 100 mls/hr Documented by: Ondansetron HCl (Zofran) 4 mg IV Q4H PRN PRN Reason: Nausea And Vomiting Sodium Chloride (Sodium Chloride Flush Syringe 10 Ml) 10 ml IV BID LUDA Sodium Chloride (Sodium Chloride Flush Syringe 10 Ml) 10 ml IV PRN PRN PRN Reason: LINE FLUSH Review of Systems - Review of Systems ROS unobtainable: due to mental status Exam - Constitutional Vital Signs: Temp Pulse Resp BP Pulse Ox 98 F 103 H 16 121/54 100 05/10/18 07:44 05/10/18 07:44 05/10/18 07:44 05/10/18 07:44 05/10/18 07:44 General appearance: no acute distress - EENT Eyes: PERRL, EOM intact - Respiratory Respiratory effort: normal Respiratory: bilateral: CTA - Cardiovascular Rhythm: regular Heart Sounds: Present: S1 & S2 Extremities: No edema, Full ROM - Gastrointestinal General gastrointestinal: Present: soft, non-tender Rectal Exam: stool bloody - Neurologic Neurological: disoriented - Labs CBC & Chem 7: 05/10/18 04:56 05/10/18 04:21 Lab Results: Laboratory Results - last 24 hr 05/09/18 05/09/18 05/09/18 17:47 17:47 17:47 WBC 14.1 H RBC 2.75 L Hgb 8.8 L Hct 26.6 L MCV 97 MCH 32 MCHC 33 RDW 14.6 Plt Count 232 Lymph % (Auto) 11.7 L [place] % (Auto) 8.5 H Eos % (Auto) 0.2 Baso % (Auto) 0.6 Lymph # 1.6 [place] # 1.2 H Eos # 0.0 Baso # 0.1 Seg Neutrophils % 79.0 H Seg Neutrophils # 11.2 H PT INR APTT Sodium Potassium Chloride Carbon Dioxide Anion Gap BUN Creatinine Estimated GFR BUN/Creatinine Ratio Glucose Lactic Acid 1.00 Calcium Total Bilirubin AST ALT Alkaline Phosphatase Total Creatine Kinase CK-MB (CK-2) CK-MB (CK-2) Rel Index Troponin T Total Protein Albumin Albumin/Globulin Ratio Triglycerides Cholesterol LDL Cholesterol Direct HDL Cholesterol Cholesterol/HDL Ratio Urine Color Urine Turbidity Urine pH Ur Specific [place] Urine Protein Urine Glucose (UA) Urine Ketones Urine Blood Urine Nitrite Urine Bilirubin Urine Urobilinogen Ur Leukocyte Esterase Urine WBC (Auto) Urine RBC (Auto) U Epithel Cells (Auto) Urine Bacteria (Auto) Salicylates < 0.3 L Urine Opiates Screen Urine Methadone Screen Acetaminophen Ur Barbiturates Screen Ur Phencyclidine Scrn Ur Amphetamines Screen U Benzodiazepines Scrn Urine Cocaine Screen U Marijuana (THC) Screen Drugs of Abuse Note Plasma/Serum Alcohol Blood Type Antibody Screen Crossmatch 05/09/18 05/09/18 05/09/18 17:47 17:48 17:54 WBC RBC Hgb Hct MCV MCH MCHC RDW Plt Count Lymph % (Auto) [place] % (Auto) Eos % (Auto) Baso % (Auto) Lymph # [place] # Eos # Baso # Seg Neutrophils % Seg Neutrophils # PT INR APTT Sodium 140 Potassium 5.0 Chloride 101.9 Carbon Dioxide 23 Anion Gap 20 BUN 25 H Creatinine 1.2 Estimated GFR 45 BUN/Creatinine Ratio 21 Glucose 137 H Lactic Acid Calcium 8.5 Total Bilirubin 0.20 AST 38 ALT 14 Alkaline Phosphatase 78 Total Creatine Kinase 1528 H CK-MB (CK-2) CK-MB (CK-2) Rel Index Troponin T 0.141 H* Total Protein 5.7 L Albumin 2.9 L Albumin/Globulin Ratio 1.0 Triglycerides 130 Cholesterol 196 LDL Cholesterol Direct 133 H HDL Cholesterol 39 L Cholesterol/HDL Ratio 5.02 Urine Color Urine Turbidity Urine pH Ur Specific [place] Urine Protein Urine Glucose (UA) Urine Ketones Urine Blood Urine Nitrite Urine Bilirubin Urine Urobilinogen Ur Leukocyte Esterase Urine WBC (Auto) Urine RBC (Auto) U Epithel Cells (Auto) Urine Bacteria (Auto) Salicylates Urine Opiates Screen Urine Methadone Screen Acetaminophen < 5.0 L Ur Barbiturates Screen Ur Phencyclidine Scrn Ur Amphetamines Screen U Benzodiazepines Scrn Urine Cocaine Screen U Marijuana (THC) Screen Drugs of Abuse Note Plasma/Serum Alcohol < 0.01 Blood Type Antibody Screen Crossmatch 05/09/18 05/09/18 05/09/18 18:27 18:27 21:33 WBC RBC Hgb Hct MCV MCH MCHC RDW Plt Count Lymph % (Auto) [place] % (Auto) Eos % (Auto) Baso % (Auto) Lymph # [place] # Eos # Baso # Seg Neutrophils % Seg Neutrophils # PT 15.3 H INR 1.14 H APTT 29.9 Sodium Potassium Chloride Carbon Dioxide Anion Gap BUN Creatinine Estimated GFR BUN/Creatinine Ratio Glucose Lactic Acid Calcium Total Bilirubin AST ALT Alkaline Phosphatase Total Creatine Kinase CK-MB (CK-2) CK-MB (CK-2) Rel Index Troponin T Total Protein Albumin Albumin/Globulin Ratio Triglycerides Cholesterol LDL Cholesterol Direct HDL Cholesterol Cholesterol/HDL Ratio Urine Color Yellow Urine Turbidity Clear Urine pH 6.0 Ur Specific [place] 1.016 Urine Protein >500 Urine Glucose (UA) Neg Urine Ketones Tr Urine Blood Neg Urine Nitrite Neg Urine Bilirubin Neg Urine Urobilinogen < 2.0 Ur Leukocyte Esterase Neg Urine WBC (Auto) 3.0 Urine RBC (Auto) 2.0 U Epithel Cells (Auto) 1.0 Urine Bacteria (Auto) 1+ Salicylates Urine Opiates Screen Presumptive negative Urine Methadone Screen Presumptive negative Acetaminophen Ur Barbiturates Screen Presumptive negative Ur Phencyclidine Scrn Presumptive negative Ur Amphetamines Screen Presumptive negative U Benzodiazepines Scrn Presumptive positive Urine Cocaine Screen Presumptive negative U Marijuana (THC) Screen Presumptive negative Drugs of Abuse Note Disclamer Plasma/Serum Alcohol Blood Type Antibody Screen Crossmatch 05/09/18 05/09/18 05/10/18 21:33 22:09 00:59 WBC RBC Hgb 8.4 L 7.0 L Hct 25.4 L 21.1 L MCV MCH MCHC RDW Plt Count Lymph % (Auto) [place] % (Auto) Eos % (Auto) Baso % (Auto) Lymph # [place] # Eos # Baso # Seg Neutrophils % Seg Neutrophils # PT INR APTT Sodium Potassium Chloride Carbon Dioxide Anion Gap BUN Creatinine Estimated GFR BUN/Creatinine Ratio Glucose Lactic Acid Calcium Total Bilirubin AST ALT Alkaline Phosphatase Total Creatine Kinase CK-MB (CK-2) CK-MB (CK-2) Rel Index Troponin T Total Protein Albumin Albumin/Globulin Ratio Triglycerides Cholesterol LDL Cholesterol Direct HDL Cholesterol Cholesterol/HDL Ratio Urine Color Urine Turbidity Urine pH Ur Specific [place] Urine Protein Urine Glucose (UA) Urine Ketones Urine Blood Urine Nitrite Urine Bilirubin Urine Urobilinogen Ur Leukocyte Esterase Urine WBC (Auto) Urine RBC (Auto) U Epithel Cells (Auto) Urine Bacteria (Auto) Salicylates Urine Opiates Screen Urine Methadone Screen Acetaminophen Ur Barbiturates Screen Ur Phencyclidine Scrn Ur Amphetamines Screen U Benzodiazepines Scrn Urine Cocaine Screen U Marijuana (THC) Screen Drugs of Abuse Note Plasma/Serum Alcohol Blood Type B NEGATIVE Antibody Screen Negative Crossmatch See Detail 05/10/18 05/10/18 05/10/18 00:59 04:21 04:21 WBC 12.1 H RBC 1.71 L Hgb 5.5 L* Hct 16.6 L* MCV 97 MCH 32 MCHC 33 RDW 14.9 Plt Count 224 Lymph % (Auto) 19.1 [place] % (Auto) 8.3 H Eos % (Auto) 1.0 Baso % (Auto) 1.3 Lymph # 2.3 [place] # 1.0 H Eos # 0.1 Baso # 0.2 H Seg Neutrophils % 70.3 H Seg Neutrophils # 8.5 H PT INR APTT Sodium 142 Potassium 4.4 Chloride 109.1 H Carbon Dioxide 21 L Anion Gap 16 BUN 40 H Creatinine 1.2 Estimated GFR 45 BUN/Creatinine Ratio 33 Glucose 154 H Lactic Acid Calcium 7.4 L Total Bilirubin AST ALT Alkaline Phosphatase Total Creatine Kinase 1200 H CK-MB (CK-2) 2.7 CK-MB (CK-2) Rel Index 0.2 Troponin T 0.136 H* Total Protein Albumin Albumin/Globulin Ratio Triglycerides Cholesterol LDL Cholesterol Direct HDL Cholesterol Cholesterol/HDL Ratio Urine Color Urine Turbidity Urine pH Ur Specific [place] Urine Protein Urine Glucose (UA) Urine Ketones Urine Blood Urine Nitrite Urine Bilirubin Urine Urobilinogen Ur Leukocyte Esterase Urine WBC (Auto) Urine RBC (Auto) U Epithel Cells (Auto) Urine Bacteria (Auto) Salicylates Urine Opiates Screen Urine Methadone Screen Acetaminophen Ur Barbiturates Screen Ur Phencyclidine Scrn Ur Amphetamines Screen U Benzodiazepines Scrn Urine Cocaine Screen U Marijuana (THC) Screen Drugs of Abuse Note Plasma/Serum Alcohol Blood Type Antibody Screen Crossmatch 05/10/18 05/10/18 04:56 06:01 WBC RBC Hgb 5.6 L* Hct 17.4 L* MCV MCH MCHC RDW Plt Count Lymph % (Auto) [place] % (Auto) Eos % (Auto) Baso % (Auto) Lymph # [place] # Eos # Baso # Seg Neutrophils % Seg Neutrophils # PT INR APTT Sodium Potassium Chloride Carbon Dioxide Anion Gap BUN Creatinine Estimated GFR BUN/Creatinine Ratio Glucose Lactic Acid Calcium Total Bilirubin AST ALT Alkaline Phosphatase Total Creatine Kinase 997 H CK-MB (CK-2) 2.2 CK-MB (CK-2) Rel Index 0.2 Troponin T 0.118 H* Total Protein Albumin Albumin/Globulin Ratio Triglycerides Cholesterol LDL Cholesterol Direct HDL Cholesterol Cholesterol/HDL Ratio Urine Color Urine Turbidity Urine pH Ur Specific [place] Urine Protein Urine Glucose (UA) Urine Ketones Urine Blood Urine Nitrite Urine Bilirubin Urine Urobilinogen Ur Leukocyte Esterase Urine WBC (Auto) Urine RBC (Auto) U Epithel Cells (Auto) Urine Bacteria (Auto) Salicylates Urine Opiates Screen Urine Methadone Screen Acetaminophen Ur Barbiturates Screen Ur Phencyclidine Scrn Ur Amphetamines Screen U Benzodiazepines Scrn Urine Cocaine Screen U Marijuana (THC) Screen Drugs of Abuse Note Plasma/Serum Alcohol Blood Type Antibody Screen Crossmatch Assessment and Plan 1. GI bleed - likely brisk upper with known large duodenal ulcer on recent EGD and given increasing BUN levels -will plan for EGD today -cont PPI drip -transfusions prn to keep hgb > 7
[2018-05-10] MEDS ORDERED: DIPRIVAN 10 MG/ML IV ONE ×2 (09:46→10:23)
--- NOTE | 2018-05-10 10:00 | Anesthesia Consultation ---
Anesthesia Consult and Med Hx Date of service: 05/10/18 - Airway Anesthetic Teeth Evaluation: Dentures ROM Head & Neck: Adequate Mental/Hyoid Distance: Inadequate Mallampati Class: Class II Intubation Access Assessment: Probably Good - Pulmonary Exam CTA: Yes - Cardiac Exam Cardiac Exam: RRR - Pre-Operative Health Status ASA Pre-Surgery Classification: ASA3 Proposed Anesthetic Plan: MAC - Pulmonary Hx Smoking: Yes COPD: Yes - Cardiovascular System Hx Hypertension: Yes Hx Pacemaker: No Hx Internal Defibrillator: No Hx Peripheral Vascular Disease: Yes (LEFT FOOT GANGRENE; s/p stent) - Central Nervous System CVA: No (Hx TIA) Hx Psychiatric Problems: No - Gastrointestinal Hx Ulcer: Yes Hx Gastroesophageal Reflux Disease: Yes (Mild) - Endocrine Hx Renal Disease: Yes (Renal insufficiency ) Hx Non-Insulin Dependent Diabetes: Yes Hx Thyroid Disease: No - Hematic Hx Anemia: Yes - Other Systems Hx Alcohol Use: Yes (occasional) Hx Substance Use: Yes (Marijuana) Hx Obesity: No - Additional Comments Anesthesia Medical History Comments: No hx anesthetic complications. Patient is somewhat uncooperative and is oriented to person and situation only. Most hx obtained from chart review. No recent nausea or vomiting. Appropriately NPO. Patient gave written consent for anesthesia after verbalizing understanding.
--- NOTE | 2018-05-10 10:00 | Anesthesia Day of Surgery ---
Anesthesia Day of Surgery - Day of Surgery Patient Examined: Yes Patient H&P Reviewed: Yes Patient is NPO: Yes
[2018-05-10] MEDS ORDERED: ADRENALIN IV ONE (10:12)
[2018-05-10] MEDS ORDERED: ADRENALINE P/F ONE (10:14)
--- NOTE | 2018-05-10 10:27 | Operative Report ---
Operative Report Operative Report: Esophagogastroduodenoscopy Procedure Note with Control of Bleeding Date of procedure: 05/10/2018 Endoscopist: Dejuan Baker Pre-op diagnosis: Upper GI bleeding Post-op diagnosis: Duodenal ulcer with visible vessel s/p epi and clip placement Anesthesia: MAC Complications: No immediate complications Estimated blood loss: minimal Procedure: After consent was obtained, the patient was placed in the left lateral decubitus position. The fujinon endoscope was inserted into the patient's mouth under direct vision, and advanced into the 2nd portion of the duodenum without difficulty. The patient tolerated the procedure well. The views of the mucosa were good. Patient's vital signs were monitored cont inuously throughout the procedure. Findings: The esophagus appeared normal. The stomach appeared normal There was an ~1 cm ulcer in the posterior wall of the duodenal bulb with a visible vessel. Epinephrine was injected around the ulcer site (3 cc total) and 2 endoclips were placed over the vessel successfully. There was no active bleeding seen at the end of the procedure. There was erythematous mucosa in the duodenal bulb; bile was seen in the 2nd portion of the duodenum. Impression: 1. Duodenal ulcer with visible vessel s/p epi injection and clip placement as above Recommendations: -cont IV PPI for 1-2 days and then switch to PO BID dosing if no further bleeding -okay for clears today; advance tomorrow if no further bleeding episodes -avoid nsaid medications -trend H/H and transfuse as needed to keep hgb > 7 -if rebleeds, repeat EGD vs consult IR -check HP serologies
[2018-05-10] MEDS ORDERED: ATIVAN IV PRN (12:47)
[2018-05-10] MEDS ORDERED: D50W (25GM) Syringe IV PRN (14:36)
[2018-05-10] MEDS ORDERED: NORMODYNE IV PRN (14:39)
--- NOTE | 2018-05-10 14:40 | Progress Note ---
Assessment and Plan Assessment and plan: GI bleed -Secondary to duodenal ulcer -Status post EGD -On Protonix drip -GI following Anemia of acute loss -Status post blood transfusion with 2 units of PRBCS -We will monitor posttransfusion H&H Abnormal cardiac enzymes -Probably secondary to demand ischemia due to the anemia -Patient denies acute chest pain -Echocardiogram ordered SIRS -Exact source of infection unknown -On empiric IV antibiotic -Blood and urine cultures pending Rhabdomyolysis, present on admission -Improving on IV fluid History of opiate dependence with withdrawal -On anxiolytics Acute toxic/metabolic encephalopathy -Mental status improved -Head CT scan negative DM2, stable -on SSI Chronic kidney disease, stage 3 -stable HTN -uncontrolled -home meds resumed, will monitor Moderate protein calorie malnutrition -hospital admitting clerk consulted Disposition: For discharge when medically stable History Interval history: Pt complained of chills, no fever Hospitalist Physical - Constitutional Vitals: Temp Pulse Resp BP Pulse Ox 98.8 F 103 H 16 171/103 98 05/10/18 10:00 05/10/18 11:36 05/10/18 11:36 05/10/18 11:36 05/10/18 11:36 General appearance: Present: no acute distress, other (agitated) - EENT Eyes: Present: PERRL, EOM intact ENT: hearing intact, clear oral mucosa - Neck Neck: Present: supple - Respiratory Respiratory effort: normal Respiratory: bilateral: CTA - Cardiovascular Rhythm: regular Heart Sounds: Present: S1 & S2 - Extremities Extremities: No edema - Abdominal General gastrointestinal: soft, non-tender, non-distended, normal bowel sounds - Neurologic Neurologic: CNII-XII intact Results - Labs CBC & Chem 7: 05/10/18 18:39 05/10/18 04:21 Labs: Laboratory Last Values WBC 12.1 K/mm3 (4.5-11.0) H 05/10/18 04:21 RBC 1.71 M/mm3 (3.65-5.03) L 05/10/18 04:21 Hgb 5.6 gm/dl (10.1-14.3) L* 05/10/18 04:56 Hct 17.4 % (30.3-42.9) L* 05/10/18 04:56 MCV 97 fl (79-97) 05/10/18 04:21 MCH 32 pg (28-32) 05/10/18 04:21 MCHC 33 % (30-34) 05/10/18 04:21 RDW 14.9 % (13.2-15.2) 05/10/18 04:21 Plt Count 224 K/mm3 (140-440) 05/10/18 04:21 Lymph % (Auto) 19.1 % (13.4-35.0) 05/10/18 04:21 [place] % (Auto) 8.3 % (0.0-7.3) H 05/10/18 04:21 Eos % (Auto) 1.0 % (0.0-4.3) 05/10/18 04:21 Baso % (Auto) 1.3 % (0.0-1.8) 05/10/18 04:21 Lymph # 2.3 K/mm3 (1.2-5.4) 05/10/18 04:21 [place] # 1.0 K/mm3 (0.0-0.8) H 05/10/18 04:21 Eos # 0.1 K/mm3 (0.0-0.4) 05/10/18 04:21 Baso # 0.2 K/mm3 (0.0-0.1) H 05/10/18 04:21 Seg Neutrophils % 70.3 % (40.0-70.0) H 05/10/18 04:21 Seg Neutrophils # 8.5 K/mm3 (1.8-7.7) H 05/10/18 04:21 PT 15.3 Sec. (12.2-14.9) H 05/09/18 21:33 INR 1.14 (0.87-1.13) H 05/09/18 21:33 APTT 29.9 Sec. (24.2-36.6) 05/09/18 21:33 Sodium 142 mmol/L (137-145) 05/10/18 04:21 Potassium 4.4 mmol/L (3.6-5.0) 05/10/18 04:21 Chloride 109.1 mmol/L (98-107) H 05/10/18 04:21 Carbon Dioxide 21 mmol/L (22-30) L 05/10/18 04:21 Anion Gap 16 mmol/L 05/10/18 04:21 BUN 40 mg/dL (7-17) H 05/10/18 04:21 Creatinine 1.2 mg/dL (0.7-1.2) 05/10/18 04:21 Estimated GFR 45 ml/min 05/10/18 04:21 BUN/Creatinine Ratio 33 % 05/10/18 04:21 Glucose 154 mg/dL (65-100) H 05/10/18 04:21 Lactic Acid 1.00 mmol/L (0.7-2.0) 05/09/18 17:47 Calcium 7.4 mg/dL (8.4-10.2) L 05/10/18 04:21 Total Bilirubin 0.20 mg/dL (0.1-1.2) 05/09/18 17:48 AST 38 units/L (5-40) 05/09/18 17:48 ALT 14 units/L (7-56) 05/09/18 17:48 Alkaline Phosphatase 78 units/L (35-129) 05/09/18 17:48 Total Creatine Kinase 997 units/L (30-135) H 05/10/18 06:01 CK-MB (CK-2) 2.2 ng/mL (0.0-4.0) 05/10/18 06:01 CK-MB (CK-2) Rel Index 0.2 (0-4) 05/10/18 06:01 Troponin T 0.118 ng/mL (0.00-0.029) H* 05/10/18 06:01 Total Protein 5.7 g/dL (6.3-8.2) L 05/09/18 17:48 Albumin 2.9 g/dL (3.9-5) L 05/09/18 17:48 Albumin/Globulin Ratio 1.0 % 05/09/18 17:48 Triglycerides 130 mg/dL (2-149) 05/09/18 17:48 Cholesterol 196 mg/dL (50-199) 05/09/18 17:48 LDL Cholesterol Direct 133 mg/dL (50-130) H 05/09/18 17:48 HDL Cholesterol 39 mg/dL (40-59) L 05/09/18 17:48 Cholesterol/HDL Ratio 5.02 % 05/09/18 17:48 Urine Color Yellow (Yellow) 05/09/18 18:27 Urine Turbidity Clear (Clear) 05/09/18 18:27 Urine pH 6.0 (5.0-7.0) 05/09/18 18:27 Ur Specific [place] 1.016 (1.003-1.030) 05/09/18 18:27 Urine Protein >500 mg/dL (Negative) 05/09/18 18:27 Urine Glucose (UA) Neg mg/dL (Negative) 05/09/18 18:27 Urine Ketones Tr mg/dL (Negative) 05/09/18 18:27 Urine Blood Neg (Negative) 05/09/18 18:27 Urine Nitrite Neg (Negative) 05/09/18 18:27 Urine Bilirubin Neg (Negative) 05/09/18 18:27 Urine Urobilinogen < 2.0 mg/dL (<2.0) 05/09/18 18:27 Ur Leukocyte Esterase Neg (Negative) 05/09/18 18:27 Urine WBC (Auto) 3.0 /HPF (0.0-6.0) 05/09/18 18:27 Urine RBC (Auto) 2.0 /HPF (0.0-6.0) 05/09/18 18:27 U Epithel Cells (Auto) 1.0 /HPF (0-13.0) 05/09/18 18:27 Urine Bacteria (Auto) 1+ /HPF (Negative) 05/09/18 18:27 Salicylates < 0.3 mg/dL (2.8-20.0) L 05/09/18 17:47 Urine Opiates Screen Presumptive negative 05/09/18 18:27 Urine Methadone Screen Presumptive negative 05/09/18 18:27 Acetaminophen < 5.0 ug/mL (10.0-30.0) L 05/09/18 17:47 Ur Barbiturates Screen Presumptive negative 05/09/18 18:27 Ur Phencyclidine Scrn Presumptive negative 05/09/18 18:27 Ur Amphetamines Screen Presumptive negative 05/09/18 18:27 U Benzodiazepines Scrn Presumptive positive 05/09/18 18:27 Urine Cocaine Screen Presumptive negative 05/09/18 18:27 U Marijuana (THC) Screen Presumptive negative 05/09/18 18:27 Drugs of Abuse Note Disclamer 05/09/18 18:27 Plasma/Serum Alcohol < 0.01 % (0-0.07) 05/09/18 17:54 Blood Type B NEGATIVE 05/09/18 21:33 Antibody Screen Negative 05/09/18 21:33 Crossmatch See Detail 05/09/18 21:33
[2018-05-10] MEDS ORDERED: NON-FORMULARY (Diazepam [Valium] 10 MG) PO SCH (14:45)
[2018-05-10] MEDS ORDERED: VALIUM ONE (17:46)
[2018-05-10] MEDS: SODIUM CHLORIDE FLUSH SYRINGE 10 ML IV SCH (17:57)
[2018-05-10] MEDS: OxyCONTIN PO SCH (18:02)
[2018-05-10] MEDS: NORVASC PO SCH (18:03)
[2018-05-10] MEDS: VALIUM PO SCH (18:03)
[2018-05-10] MEDS: HumaLOG SUB-Q SCH (18:09)
[2018-05-10 18:57] LABS: Hematocrit 25.3 % (30.3-42.9); Hemoglobin 8.3 gm/dl (10.1-14.3)
[2018-05-11] MEDS: ZOSYN/NS 3.375GM/50ML 3.375 GM/50 ML BAG IV SCH ×4 (00:13→22:49)
[2018-05-11] MEDS: HumaLOG SUB-Q SCH ×5 (00:14→22:00)
[2018-05-11] MEDS: NEURONTIN PO SCH ×4 (00:15→22:51)
[2018-05-11] MEDS: OxyCONTIN PO SCH (00:15)
[2018-05-11] MEDS: SODIUM CHLORIDE FLUSH SYRINGE 10 ML IV SCH ×3 (00:17→22:51)
[2018-05-11] MEDS: VALIUM PO SCH ×3 (00:17→22:49)
[2018-05-11 05:15] LABS: Hematocrit 20.2 % (30.3-42.9); Hemoglobin 6.8 gm/dl (10.1-14.3)
[2018-05-11 05:44] LABS: Calcium 8.1 mg/dL (8.4-10.2)
[2018-05-11] MEDS: NORVASC PO SCH (09:20)
--- NOTE | 2018-05-11 10:10 | Gastroenterology Progress Note ---
Assessment and Plan - Patient Problems (1) Acute blood loss anemia Current Visit: Yes Status: Acute Plan to address problem: due to ulcer as detailed below (2) GI (gastrointestinal bleed) Current Visit: Yes Status: Acute Qualifiers: GI bleed type/associated pathology: anorectal hemorrhage Qualified Code(s): K62.5 - Hemorrhage of anus and rectum Plan to address problem: due to ulcer as detailed below (3) Duodenal ulcer Current Visit: Yes Status: Acute (4) Duodenal ulcer Current Visit: Yes Status: Acute Plan to address problem: Treated yesterday; hgb declined today slightly. Recommend continue to monitor closely and continue PPI drip for total of 48 hours. If no more clinical bleeding and Hgb stabilizes then can discharge on BID PPI with outpatient follow up from GI standpoint. However, if rebleeding occurs will need repeat endoscopic intervention. Once hgb stable and no more clinical bleeding can advance diet Subjective Date of service: 05/11/18 Interval history: Patient reports not feeling well, still with upper abdominal discomfort that is mild, TTP. Objective - Constitutional Vitals: Temp Pulse Resp BP Pulse Ox 98.4 F 97 H 20 112/50 99 05/11/18 04:00 05/11/18 09:20 05/10/18 19:00 05/11/18 09:20 05/10/18 19:00 General appearance: other (lethargic) - Respiratory Respiratory: bilateral: CTA - Gastrointestinal General gastrointestinal: Present: soft, tender - Labs CBC & Chem 7: 05/11/18 05:00 05/11/18 04:54 Labs: Laboratory Results - last 24 hr 05/10/18 05/10/18 05/10/18 18:10 18:39 21:44 Hgb 8.3 L Hct 25.3 L D Sodium Potassium Chloride Carbon Dioxide Anion Gap BUN Creatinine Estimated GFR BUN/Creatinine Ratio Glucose POC Glucose 143 H 158 H Calcium Magnesium 05/11/18 05/11/18 05/11/18 04:54 05:00 09:21 Hgb 6.8 L Hct 20.2 L Sodium 146 H Potassium 4.6 Chloride 111.1 H Carbon Dioxide 23 Anion Gap 17 BUN 22 H Creatinine 1.1 Estimated GFR 49 BUN/Creatinine Ratio 20 Glucose 104 H POC Glucose 110 H Calcium 8.1 L Magnesium 1.90
[2018-05-11] MEDS ORDERED: NACL 0.9% 500 ML 500 ML IV ONE (11:00)
[2018-05-11] MEDS ORDERED: LASIX IV ONE (11:10)
--- NOTE | 2018-05-11 12:52 | Progress Note ---
Assessment and Plan Assessment and plan: GI bleed -Secondary to duodenal ulcer -Status post EGD -On Protonix drip -GI following Anemia of acute loss -Status post blood transfusion with 2 units of PRBCS -Hb trended down today to 6.8, will transfuse additional 2u of PRBCS -We will monitor posttransfusion H&H Abnormal cardiac enzymes -Probably secondary to demand ischemia due to the anemia -Patient denies acute chest pain -Echocardiogram ordered SIRS -Exact source of infection unknown -On empiric IV antibiotic -Blood and urine cultures pending -Can d/c antibiotic if no growth in 48hrs Rhabdomyolysis, present on admission -Improving on IV fluid, will monitor History of opiate dependence with withdrawal -stable on anxiolytics Acute toxic/metabolic encephalopathy -Mental status improved -Head CT scan negative DM2, stable -on SSI Chronic kidney disease, stage 3 -stable HTN -controlled on meds Moderate protein calorie malnutrition -pourer crane ladle consulted Disposition: For discharge when medically stable History Interval history: Pt has no new complaints. No reported overt bleeding Hospitalist Physical - Constitutional Vitals: Temp Pulse Resp BP Pulse Ox 98.4 F 97 H 20 112/50 99 05/11/18 04:00 05/11/18 09:20 05/10/18 19:00 05/11/18 09:20 05/10/18 19:00 General appearance: Present: no acute distress - EENT Eyes: Present: PERRL, EOM intact ENT: hearing intact, clear oral mucosa - Neck Neck: Present: supple - Respiratory Respiratory effort: normal Respiratory: bilateral: CTA - Cardiovascular Rhythm: regular Heart Sounds: Present: S1 & S2 - Extremities Extremities: No edema - Abdominal General gastrointestinal: soft, non-tender, non-distended, normal bowel sounds - Neurologic Neurologic: CNII-XII intact Results - Labs CBC & Chem 7: 05/11/18 05:00 05/11/18 04:54 Labs: Laboratory Last Values WBC 12.1 K/mm3 (4.5-11.0) H 05/10/18 04:21 RBC 1.71 M/mm3 (3.65-5.03) L 05/10/18 04:21 Hgb 6.8 gm/dl (10.1-14.3) L 05/11/18 05:00 Hct 20.2 % (30.3-42.9) L 05/11/18 05:00 MCV 97 fl (79-97) 05/10/18 04:21 MCH 32 pg (28-32) 05/10/18 04:21 MCHC 33 % (30-34) 05/10/18 04:21 RDW 14.9 % (13.2-15.2) 05/10/18 04:21 Plt Count 224 K/mm3 (140-440) 05/10/18 04:21 Lymph % (Auto) 19.1 % (13.4-35.0) 05/10/18 04:21 [place] % (Auto) 8.3 % (0.0-7.3) H 05/10/18 04:21 Eos % (Auto) 1.0 % (0.0-4.3) 05/10/18 04:21 Baso % (Auto) 1.3 % (0.0-1.8) 05/10/18 04:21 Lymph # 2.3 K/mm3 (1.2-5.4) 05/10/18 04:21 [place] # 1.0 K/mm3 (0.0-0.8) H 05/10/18 04:21 Eos # 0.1 K/mm3 (0.0-0.4) 05/10/18 04:21 Baso # 0.2 K/mm3 (0.0-0.1) H 05/10/18 04:21 Seg Neutrophils % 70.3 % (40.0-70.0) H 05/10/18 04:21 Seg Neutrophils # 8.5 K/mm3 (1.8-7.7) H 05/10/18 04:21 PT 15.3 Sec. (12.2-14.9) H 05/09/18 21:33 INR 1.14 (0.87-1.13) H 05/09/18 21:33 APTT 29.9 Sec. (24.2-36.6) 05/09/18 21:33 Sodium 146 mmol/L (137-145) H 05/11/18 04:54 Potassium 4.6 mmol/L (3.6-5.0) 05/11/18 04:54 Chloride 111.1 mmol/L (98-107) H 05/11/18 04:54 Carbon Dioxide 23 mmol/L (22-30) 05/11/18 04:54 Anion Gap 17 mmol/L 05/11/18 04:54 BUN 22 mg/dL (7-17) H 05/11/18 04:54 Creatinine 1.1 mg/dL (0.7-1.2) 05/11/18 04:54 Estimated GFR 49 ml/min 05/11/18 04:54 BUN/Creatinine Ratio 20 % 05/11/18 04:54 Glucose 104 mg/dL (65-100) H 05/11/18 04:54 POC Glucose 110 (70-105) H 05/11/18 09:21 Lactic Acid 1.00 mmol/L (0.7-2.0) 05/09/18 17:47 Calcium 8.1 mg/dL (8.4-10.2) L 05/11/18 04:54 Magnesium 1.90 mg/dL (1.7-2.3) 05/11/18 04:54 Total Bilirubin 0.20 mg/dL (0.1-1.2) 05/09/18 17:48 AST 38 units/L (5-40) 05/09/18 17:48 ALT 14 units/L (7-56) 05/09/18 17:48 Alkaline Phosphatase 78 units/L (35-129) 05/09/18 17:48 Total Creatine Kinase 997 units/L (30-135) H 05/10/18 06:01 CK-MB (CK-2) 2.2 ng/mL (0.0-4.0) 05/10/18 06:01 CK-MB (CK-2) Rel Index 0.2 (0-4) 05/10/18 06:01 Troponin T 0.118 ng/mL (0.00-0.029) H* 05/10/18 06:01 Total Protein 5.7 g/dL (6.3-8.2) L 05/09/18 17:48 Albumin 2.9 g/dL (3.9-5) L 05/09/18 17:48 Albumin/Globulin Ratio 1.0 % 05/09/18 17:48 Triglycerides 130 mg/dL (2-149) 05/09/18 17:48 Cholesterol 196 mg/dL (50-199) 05/09/18 17:48 LDL Cholesterol Direct 133 mg/dL (50-130) H 05/09/18 17:48 HDL Cholesterol 39 mg/dL (40-59) L 05/09/18 17:48 Cholesterol/HDL Ratio 5.02 % 05/09/18 17:48 Urine Color Yellow (Yellow) 05/09/18 18:27 Urine Turbidity Clear (Clear) 05/09/18 18:27 Urine pH 6.0 (5.0-7.0) 05/09/18 18:27 Ur Specific [place] 1.016 (1.003-1.030) 05/09/18 18:27 Urine Protein >500 mg/dL (Negative) 05/09/18 18:27 Urine Glucose (UA) Neg mg/dL (Negative) 05/09/18 18:27 Urine Ketones Tr mg/dL (Negative) 05/09/18 18:27 Urine Blood Neg (Negative) 05/09/18 18:27 Urine Nitrite Neg (Negative) 05/09/18 18:27 Urine Bilirubin Neg (Negative) 05/09/18 18:27 Urine Urobilinogen < 2.0 mg/dL (<2.0) 05/09/18 18:27 Ur Leukocyte Esterase Neg (Negative) 05/09/18 18:27 Urine WBC (Auto) 3.0 /HPF (0.0-6.0) 05/09/18 18:27 Urine RBC (Auto) 2.0 /HPF (0.0-6.0) 05/09/18 18:27 U Epithel Cells (Auto) 1.0 /HPF (0-13.0) 05/09/18 18:27 Urine Bacteria (Auto) 1+ /HPF (Negative) 05/09/18 18:27 Salicylates < 0.3 mg/dL (2.8-20.0) L 05/09/18 17:47 Urine Opiates Screen Presumptive negative 05/09/18 18:27 Urine Methadone Screen Presumptive negative 05/09/18 18:27 Acetaminophen < 5.0 ug/mL (10.0-30.0) L 05/09/18 17:47 Ur Barbiturates Screen Presumptive negative 05/09/18 18:27 Ur Phencyclidine Scrn Presumptive negative 05/09/18 18:27 Ur Amphetamines Screen Presumptive negative 05/09/18 18:27 U Benzodiazepines Scrn Presumptive positive 05/09/18 18:27 Urine Cocaine Screen Presumptive negative 05/09/18 18:27 U Marijuana (THC) Screen Presumptive negative 05/09/18 18:27 Drugs of Abuse Note Disclamer 05/09/18 18:27 Plasma/Serum Alcohol < 0.01 % (0-0.07) 05/09/18 17:54 Blood Type B NEGATIVE 05/09/18 21:33 Antibody Screen Negative 05/09/18 21:33 Crossmatch See Detail 05/09/18 21:33
--- NOTE | 2018-05-11 13:21 | Event Note ---
Date: 05/11/18 Cardiology note dictated. 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 Plan is to review the echocardiogram once it is done and also to consider ischemic evaluation because of abnormal cardiac enzymes once the patient's clinical status improves. Thank you Dr. VIVEK Turner
[2018-05-11] MEDS: PROTONIX 80 MG in NACL 0.9% 100 ML IV SCH (16:06)
--- NOTE | 2018-05-11 23:30 | Consultation ---
CARDIOLOGY EVALUATION HISTORY OF PRESENT ILLNESS: The patient is a 67-year-old female seen for cardiac evaluation because of abnormal cardiac enzymes. The patient was admitted on 05/09/2018 because of black stools and she is known to have hypertension, diabetes, chronic kidney disease, chronic obstructive pulmonary disease. She is also known to be bipolar as well as history of cerebrovascular accident. The patient is known to have had duodenal ulcer and the patient underwent endoscopy done by Dr. Baker on 05/10/2018, which showed duodenal ulcer with visible vessel. The patient had clip placement. The patient received blood transfusions at the time of admission because of a hemoglobin of being 5.6, yesterday it was 8.3 and today it is again 6.8 and the patient will be receiving additional blood transfusions. It is difficult to get any historic details because the patient is somewhat noncommunicative at this time. However, the patient has no significant chest pain. Troponin is noted to be 0.136 and 0.118. BUN is noted to be 40 with a creatinine of 1.2. No other historic details are available at this time. PHYSICAL EXAMINATION: VITAL SIGNS: Blood pressure 112/50, pulse 97, and respirations 18. GENERAL: Adult female, who appears to be comfortable. NECK: Supple. No thyromegaly. Both carotids are palpable and equal. CHEST: Symmetrical. LUNGS: Essentially clear. HEART: S1 and S2 are heard well. Rhythm is noted to be regular. Grade 2/6 systolic murmur is present. ABDOMEN: Soft, nontender. EXTREMITIES: No edema or calf tenderness. Peripheral pulses are satisfactory. LABORATORY DATA: Rhythm appears to be sinus. EKG is not available. Initial hemoglobin was 8.4. Subsequently, it was down to 5.6 and today, it is noted to be 6.8 and on 05/10/2018, it was 8.3. Sodium 146, potassium 4.6, BUN 22, creatinine 1.1, blood sugar 158. CPK elevated, but CPK-MB is normal. Troponin 0.136 and 0.118. IMPRESSION: 1. Abnormal cardiac enzymes. 2. Gastrointestinal bleeding. 3. Mild elevation of the BUN and creatinine. 4. Hypertension. 5. Diabetes. 6. History of chronic kidney disease. 7. History of chronic obstructive pulmonary disease. 8. Bipolar disease. 9. History of cerebrovascular accident. 10. Gastrointestinal bleeding secondary to bleeding duodenal ulcer. The patient is seen for cardiac evaluation. Cardiac rhythm is stable. Cardiac examination is satisfactory except for the presence of a cardiac murmur. Echocardiogram has been ordered and this will be reviewed. Elevated cardiac enzymes of questionable significance. This will be monitored closely. Once the mental status and GI bleeding stabilizes, may consider a nuclear stress test for further cardiac evaluation and ischemic evaluation. The patient will be followed closely. Thank you for allowing me to participate in the care of this patient. JOB# [id number]/NTS
[2018-05-12] MEDS: OxyCONTIN PO SCH ×3 (01:33→22:50)
[2018-05-12 05:29] LABS: Hematocrit 31.6 % (30.3-42.9); Hemoglobin 10.7 gm/dl (10.1-14.3); Mean Corpuscular HGB Conc 34 % (30-34); Mean Corpuscular Volume 91 fl (79-97); Platelet Count 195 K/mm3 (140-440); Red Blood Count 3.48 M/mm3 (3.65-5.03); Red Cell Distribution Width 17.8 % (13.2-15.2)
[2018-05-12] MEDS: ZOSYN/NS 3.375GM/50ML 3.375 GM/50 ML BAG IV SCH ×3 (05:52→22:50)
[2018-05-12] MEDS: NEURONTIN PO SCH ×3 (05:52→22:50)
[2018-05-12] MEDS: SODIUM CHLORIDE FLUSH SYRINGE 10 ML IV SCH ×3 (05:54→22:50)
--- NOTE | 2018-05-12 09:18 | Progress Note ---
Assessment and Plan Assessment and plan: 67-year-old woman history of hypertension, diabetes, chronic kidney disease, COPD, bipolar, CVA, duodenal ulcer was brought to the emergency room for evaluation. Patient is unable to give a history, the nurse reported that she has dark stools. Hospital course: patient underwent EGD with findings and recommendations as noted below Impression: 1. Duodenal ulcer with visible vessel s/p epi injection and clip placement as above Recommendations: -cont IV PPI for 1-2 days and then switch to PO BID dosing if no further bleeding -okay for clears today; advance tomorrow if no further bleeding episodes -avoid nsaid medications -trend H/H and transfuse as needed to keep hgb > 7 -if rebleeds, repeat EGD vs consult IR -check HP serologies GI bleed - Secondary to duodenal ulcer - Status post EGD - On Protonix drip- will change TO PO - Patient transfused due to change in H/H- No new bleeding noted - GI following and will follow outpatient - Follow HP Serologies Anemia of acute loss -Status post blood transfusion with 2 units of PRBCS -Hb trended down today to 6.8, will transfuse additional 2u of PRBCS -We will monitor posttransfusion H&H Abnormal cardiac enzymes -Probably secondary to demand ischemia due to the anemia -Patient denies acute chest pain -Echocardiogram ordered -Cardiology consult noted, ischemic work up pending. SIRS -Exact source of infection unknown -On empiric IV antibiotic -Blood and urine cultures pending -Can d/c antibiotic if no growth in 48hrs Hypernatremia -on 1/2NS, will monitor Na level Rhabdomyolysis, present on admission -Improving on IV fluid, will monitor History of opiate dependence with withdrawal -stable on anxiolytics Acute toxic/metabolic encephalopathy -Mental status improved -Head CT scan negative DM2, stable -on SSI Chronic kidney disease, stage 3 -stable HTN -controlled on meds Moderate protein calorie malnutrition -dish up person consulted Debility -PT/OT eval Constipation: - Miralax PRN Metabolic Encephalopathy -Resolved Bipolar disease- stable DVT/GI prophy SCD Plan discussed with patient and Nursing staff. Transfer to Tele History Interval history: Patient seen and examined, the patient has several bleeding. Nursing staff rep orts no BM yet. Patient although appears lethargic. Voices no complaints Hospitalist Physical - Physical exam Narrative exam: VITAL SIGNS: Reviewed. GENERAL: The patient appeared well nourished and normally developed. Vital signs as documented. HEAD: No signs of head trauma. EYES: Pupils are equal. Extraocular motions intact. EARS: Hearing grossly intact. MOUTH: Oropharynx is normal. NECK: No adenopathy, no JVD. CHEST: Chest with clear breath sounds bilaterally. No wheezes, rales, or rhonchi. CARDIAC: Regular rate and rhythm. S1 and S2, +2SEM murmurs, No gallops, or rubs. VASCULAR: No Edema. Peripheral pulses normal and equal in all extremities. ABDOMEN: Soft, without detectable tenderness. No sign of distention. No rebound or guarding, and no masses palpated. Bowel Sounds normal. MUSCULOSKELETAL: Good range of motion of all major joints. Extremities without clubbing, cyanosis or edema. NEUROLOGIC EXAM: Alert and oriented x 3. No focal sensory or strength deficits. Speech normal. Follows commands. PSYCHIATRIC: Mood normal. SKIN: Pale appearing Otherwise - Constitutional Vitals: Temp Pulse Resp BP Pulse Ox 97.7 F 82 21 143/87 92 05/12/18 08:00 05/12/18 08:51 05/12/18 08:51 05/12/18 08:51 05/12/18 08:51 General appearance: Present: no acute distress Results - Labs CBC & Chem 7: 05/12/18 04:14 05/12/18 04:14 Labs: Laboratory Last Values WBC 6.6 K/mm3 (4.5-11.0) 05/12/18 04:14 RBC 3.48 M/mm3 (3.65-5.03) L 05/12/18 04:14 Hgb 10.7 gm/dl (10.1-14.3) D 05/12/18 04:14 Hct 31.6 % (30.3-42.9) D 05/12/18 04:14 MCV 91 fl (79-97) 05/12/18 04:14 MCH 31 pg (28-32) 05/12/18 04:14 MCHC 34 % (30-34) 05/12/18 04:14 RDW 17.8 % (13.2-15.2) H 05/12/18 04:14 Plt Count 195 K/mm3 (140-440) 05/12/18 04:14 Lymph % (Auto) 19.1 % (13.4-35.0) 05/10/18 04:21 [place] % (Auto) 8.3 % (0.0-7.3) H 05/10/18 04:21 Eos % (Auto) 1.0 % (0.0-4.3) 05/10/18 04:21 Baso % (Auto) 1.3 % (0.0-1.8) 05/10/18 04:21 Lymph # 2.3 K/mm3 (1.2-5.4) 05/10/18 04:21 [place] # 1.0 K/mm3 (0.0-0.8) H 05/10/18 04:21 Eos # 0.1 K/mm3 (0.0-0.4) 05/10/18 04:21 Baso # 0.2 K/mm3 (0.0-0.1) H 05/10/18 04:21 Seg Neutrophils % 70.3 % (40.0-70.0) H 05/10/18 04:21 Seg Neutrophils # 8.5 K/mm3 (1.8-7.7) H 05/10/18 04:21 PT 15.3 Sec. (12.2-14.9) H 05/09/18 21:33 INR 1.14 (0.87-1.13) H 05/09/18 21:33 APTT 29.9 Sec. (24.2-36.6) 05/09/18 21:33 Sodium 142 mmol/L (137-145) 05/12/18 04:14 Potassium 4.5 mmol/L (3.6-5.0) 05/12/18 04:14 Chloride 108.1 mmol/L (98-107) H 05/12/18 04:14 Carbon Dioxide 18 mmol/L (22-30) L 05/12/18 04:14 Anion Gap 20 mmol/L 05/12/18 04:14 BUN 16 mg/dL (7-17) 05/12/18 04:14 Creatinine 1.2 mg/dL (0.7-1.2) 05/12/18 04:14 Estimated GFR 45 ml/min 05/12/18 04:14 BUN/Creatinine Ratio 13 % 05/12/18 04:14 Glucose 83 mg/dL (65-100) 05/12/18 04:14 POC Glucose 123 (70-105) H 05/12/18 00:03 Lactic Acid 1.00 mmol/L (0.7-2.0) 05/09/18 17:47 Calcium 8.0 mg/dL (8.4-10.2) L 05/12/18 04:14 Magnesium 1.90 mg/dL (1.7-2.3) 05/11/18 04:54 Total Bilirubin 0.20 mg/dL (0.1-1.2) 05/09/18 17:48 AST 38 units/L (5-40) 05/09/18 17:48 ALT 14 units/L (7-56) 05/09/18 17:48 Alkaline Phosphatase 78 units/L (35-129) 05/09/18 17:48 Total Creatine Kinase 226 units/L (30-135) H 05/12/18 04:14 CK-MB (CK-2) 2.2 ng/mL (0.0-4.0) 05/10/18 06:01 CK-MB (CK-2) Rel Index 0.2 (0-4) 05/10/18 06:01 Troponin T 0.118 ng/mL (0.00-0.029) H* 05/10/18 06:01 Total Protein 5.7 g/dL (6.3-8.2) L 05/09/18 17:48 Albumin 2.9 g/dL (3.9-5) L 05/09/18 17:48 Albumin/Globulin Ratio 1.0 % 05/09/18 17:48 Triglycerides 130 mg/dL (2-149) 05/09/18 17:48 Cholesterol 196 mg/dL (50-199) 05/09/18 17:48 LDL Cholesterol Direct 133 mg/dL (50-130) H 05/09/18 17:48 HDL Cholesterol 39 mg/dL (40-59) L 05/09/18 17:48 Cholesterol/HDL Ratio 5.02 % 05/09/18 17:48 Urine Color Yellow (Yellow) 05/09/18 18:27 Urine Turbidity Clear (Clear) 05/09/18 18:27 Urine pH 6.0 (5.0-7.0) 05/09/18 18:27 Ur Specific [place] 1.016 (1.003-1.030) 05/09/18 18:27 Urine Protein >500 mg/dL (Negative) 05/09/18 18:27 Urine Glucose (UA) Neg mg/dL (Negative) 05/09/18 18:27 Urine Ketones Tr mg/dL (Negative) 05/09/18 18:27 Urine Blood Neg (Negative) 05/09/18 18:27 Urine Nitrite Neg (Negative) 05/09/18 18:27 Urine Bilirubin Neg (Negative) 05/09/18 18:27 Urine Urobilinogen < 2.0 mg/dL (<2.0) 05/09/18 18:27 Ur Leukocyte Esterase Neg (Negative) 05/09/18 18:27 Urine WBC (Auto) 3.0 /HPF (0.0-6.0) 05/09/18 18:27 Urine RBC (Auto) 2.0 /HPF (0.0-6.0) 05/09/18 18:27 U Epithel Cells (Auto) 1.0 /HPF (0-13.0) 05/09/18 18:27 Urine Bacteria (Auto) 1+ /HPF (Negative) 05/09/18 18:27 Salicylates < 0.3 mg/dL (2.8-20.0) L 05/09/18 17:47 Urine Opiates Screen Presumptive negative 05/09/18 18:27 Urine Methadone Screen Presumptive negative 05/09/18 18:27 Acetaminophen < 5.0 ug/mL (10.0-30.0) L 05/09/18 17:47 Ur Barbiturates Screen Presumptive negative 05/09/18 18:27 Ur Phencyclidine Scrn Presumptive negative 05/09/18 18:27 Ur Amphetamines Screen Presumptive negative 05/09/18 18:27 U Benzodiazepines Scrn Presumptive positive 05/09/18 18:27 Urine Cocaine Screen Presumptive negative 05/09/18 18:27 U Marijuana (THC) Screen Presumptive negative 05/09/18 18:27 Drugs of Abuse Note Disclamer 05/09/18 18:27 Plasma/Serum Alcohol < 0.01 % (0-0.07) 05/09/18 17:54 Blood Type B NEGATIVE 05/09/18 21:33 Antibody Screen Negative 05/09/18 21:33 Crossmatch See Detail 05/09/18 21:33
[2018-05-12] MEDS: VALIUM PO SCH ×4 (09:32→23:40)
[2018-05-12] MEDS: NORVASC PO SCH (09:34)
[2018-05-12] MEDS: HumaLOG SUB-Q SCH ×4 (09:34→22:00)
[2018-05-12] MEDS ORDERED: MIRALAX 3350 PO PRN (10:00)
--- NOTE | 2018-05-12 11:35 | Progress Note ---
Assessment and Plan Currently stable cardiac status. Will plan for completion of stress test tomorrow. NPO after MN. The patient has been seen in conjunction with Dr. Strong who agrees with the assessment and plan of care. - Patient Problems (1) Anemia requiring transfusions Current Visit: Yes Status: Acute (2) GI bleed Current Visit: Yes Status: Acute (3) Elevated troponin Current Visit: Yes Status: Acute (4) Encephalopathy Current Visit: Yes Status: Acute (5) Acute hypoxemic respiratory failure Current Visit: No Status: Acute (6) CKD (chronic kidney disease) Current Visit: No Status: Chronic Qualifiers: Chronic kidney disease stage: stage 3 (moderate) Qualified Code(s): N18.3 - Chronic kidney disease, stage 3 (moderate) (7) COPD (chronic obstructive pulmonary disease) Current Visit: No Status: Chronic (8) Hypertension Current Visit: No Status: Chronic Qualifiers: Hypertension type: essential hypertension (9) IDDM (insulin dependent diabetes mellitus) Current Visit: No Status: Chronic (10) Rhabdomyolysis Current Visit: Yes Status: Acute Subjective Date of service: 05/12/18 Principal diagnosis: GI bleed Interval history: pt resting in bed, no current cardiac complaints. Objective Last Vital Signs Temp 97.7 F 05/12/18 08:00 Pulse 89 05/12/18 09:34 Resp 14 05/12/18 09:30 BP 138/50 05/12/18 09:34 Pulse Ox 98 05/12/18 09:30 - Physical Examination General: No Apparent Distress HEENT: Positive: PERRL, Normocephaly, Mucus Membranes Moist Neck: Positive: neck supple, trachea midline Cardiac: Positive: Reg Rate and Rhythm, S1/S2 Lungs: Positive: Decreased Breath Sounds Neuro: Positive: Grossly Intact Abdomen: Positive: Soft. Negative: Tender Skin: Negative: Wound Musculoskeletal: No Pain Extremities: Absent: edema - Labs and Meds CBC 05/12/18 Range/Units 04:14 WBC 6.6 (4.5-11.0) K/mm3 RBC 3.48 L (3.65-5.03) M/mm3 Hgb 10.7 D (10.1-14.3) gm/dl Hct 31.6 D (30.3-42.9) % Plt Count 195 (140-440) K/mm3 Comprehensive Metabolic Panel 05/12/18 Range/Units 04:14 Sodium 142 (137-145) mmol/L Potassium 4.5 (3.6-5.0) mmol/L Chloride 108.1 H (98-107) mmol/L Carbon Dioxide 18 L (22-30) mmol/L BUN 16 (7-17) mg/dL Creatinine 1.2 (0.7-1.2) mg/dL Glucose 83 (65-100) mg/dL Calcium 8.0 L (8.4-10.2) mg/dL
--- NOTE | 2018-05-12 13:19 | Gastroenterology Progress Note ---
<JONELLE BATISTA - Last Filed: 05/12/18 13:26> Assessment and Plan 1.GI bleed 2.acute blood loss anemia -H/H 10.7/31.6-s/p transfusion PRBCs -continue to monitor H/H and transfuse as needed -s/p EGD that revealed a duodenal ulcer with visible vessel (s/p epi injection and clip placement) -H pylori Ag pending-f/u results in clinic -clinically, patient is HD stable with no active signs of bleeding overnight or this am. Denies abd pain or N/V. Tolerating clears. -okay to d/c protonix drip and transition to BID -avoid NSAIDs -okay to advance diet as tolerated -if rebleeds, repeat EGD vs IR consult -if labs remain stable in am with no further bleeding, okay to be d/c per GI standpoint on high dose PPI with f/u in clinic ~ 2weeks -no further recommendations at this time, will sign off. Please call if needed. Subjective Date of service: 05/12/18 Principal diagnosis: GI bleed Interval history: No acute distress or active signs of bleeding overnight or this am. Denies abd pain or N/V. Tolerating clears. Objective - Constitutional Vitals: Temp Pulse Resp BP Pulse Ox 98.7 F 89 14 138/50 98 05/12/18 12:00 05/12/18 09:34 05/12/18 09:30 05/12/18 09:34 05/12/18 09:30 General appearance: no acute distress - Respiratory Respiratory: bilateral: diminished - Cardiovascular Rhythm: regular Heart Sounds: Present: S1 & S2 - Gastrointestinal General gastrointestinal: Present: soft, non-tender, non-distended, normal bowel sounds - Labs CBC & Chem 7: 05/12/18 04:14 05/12/18 04:14 Labs: Laboratory Results - last 24 hr 05/09/18 05/11/18 05/12/18 21:33 16:50 00:03 WBC RBC Hgb Hct MCV MCH MCHC RDW Plt Count Sodium Potassium Chloride Carbon Dioxide Anion Gap BUN Creatinine Estimated GFR BUN/Creatinine Ratio Glucose POC Glucose 200 H 123 H Calcium Total Creatine Kinase Blood Type B NEGATIVE Antibody Screen Negative Crossmatch See Detail 05/12/18 05/12/18 05/12/18 04:14 04:14 08:36 WBC 6.6 RBC 3.48 L Hgb 10.7 D Hct 31.6 D MCV 91 MCH 31 MCHC 34 RDW 17.8 H Plt Count 195 Sodium 142 Potassium 4.5 Chloride 108.1 H Carbon Dioxide 18 L Anion Gap 20 BUN 16 Creatinine 1.2 Estimated GFR 45 BUN/Creatinine Ratio 13 Glucose 83 POC Glucose 111 H Calcium 8.0 L Total Creatine Kinase 226 H Blood Type Antibody Screen Crossmatch 05/12/18 11:37 WBC RBC Hgb Hct MCV MCH MCHC RDW Plt Count Sodium Potassium Chloride Carbon Dioxide Anion Gap BUN Creatinine Estimated GFR BUN/Creatinine Ratio Glucose POC Glucose 233 H Calcium Total Creatine Kinase Blood Type Antibody Screen Crossmatch <KATARZYNA SAMSON - Last Filed: 05/12/18 13:29> Assessment and Plan Agree with advanced practitioner exam, assessment, and plan with additions below: patient with mild epigastric TTP, otherwise no GI complaints and no more GI bleeding. Therefore continue oral BID PPI, follow up in clinic in 2-4 weeks. We will sign off, please call back if needed. - Patient Problems (1) Acute blood loss anemia Current Visit: Yes Status: Acute (2) GI (gastrointestinal bleed) Current Visit: Yes Status: Acute Qualifiers: GI bleed type/associated pathology: anorectal hemorrhage Qualified Code(s): K62.5 - Hemorrhage of anus and rectum (3) Duodenal ulcer Current Visit: Yes Status: Acute (4) Duodenal ulcer Current Visit: Yes Status: Acute Objective - Constitutional Vitals: Temp Pulse Resp BP Pulse Ox 98.7 F 89 14 138/50 98 05/12/18 12:00 05/12/18 09:34 05/12/18 09:30 05/12/18 09:34 05/12/18 09:30 - Labs CBC & Chem 7: 05/12/18 04:14 05/12/18 04:14 Labs: Laboratory Results - last 24 hr 05/09/18 05/11/18 05/12/18 21:33 16:50 00:03 WBC RBC Hgb Hct MCV MCH MCHC RDW Plt Count Sodium Potassium Chloride Carbon Dioxide Anion Gap BUN Creatinine Estimated GFR BUN/Creatinine Ratio Glucose POC Glucose 200 H 123 H Calcium Total Creatine Kinase Blood Type B NEGATIVE Antibody Screen Negative Crossmatch See Detail 05/12/18 05/12/18 05/12/18 04:14 04:14 08:36 WBC 6.6 RBC 3.48 L Hgb 10.7 D Hct 31.6 D MCV 91 MCH 31 MCHC 34 RDW 17.8 H Plt Count 195 Sodium 142 Potassium 4.5 Chloride 108.1 H Carbon Dioxide 18 L Anion Gap 20 BUN 16 Creatinine 1.2 Estimated GFR 45 BUN/Creatinine Ratio 13 Glucose 83 POC Glucose 111 H Calcium 8.0 L Total Creatine Kinase 226 H Blood Type Antibody Screen Crossmatch 05/12/18 11:37 WBC RBC Hgb Hct MCV MCH MCHC RDW Plt Count Sodium Potassium Chloride Carbon Dioxide Anion Gap BUN Creatinine Estimated GFR BUN/Creatinine Ratio Glucose POC Glucose 233 H Calcium Total Creatine Kinase Blood Type Antibody Screen Crossmatch
[2018-05-12 17:49] LABS: Hematocrit 30.8 % (30.3-42.9); Hemoglobin 10.3 gm/dl (10.1-14.3)
[2018-05-12] MEDS: PROTONIX PO SCH ×2 (18:31→22:50)
[2018-05-12] MEDS: NACL 0.45% 500 ML IV SCH ×2 (18:43→23:33)
[2018-05-13] MEDS: NEURONTIN PO SCH ×3 (06:13→22:58)
[2018-05-13] MEDS: ZOSYN/NS 3.375GM/50ML 3.375 GM/50 ML BAG IV SCH (06:13)
[2018-05-13 07:21] LABS: Hematocrit 29.5 % (30.3-42.9); Hemoglobin 10.1 gm/dl (10.1-14.3); Mean Corpuscular HGB Conc 34 % (30-34); Mean Corpuscular Volume 91 fl (79-97); Platelet Count 185 K/mm3 (140-440); Red Blood Count 3.25 M/mm3 (3.65-5.03); Red Cell Distribution Width 17.3 % (13.2-15.2)
[2018-05-13 07:39] LABS: Calcium 7.8 mg/dL (8.4-10.2)
[2018-05-13] MEDS: HumaLOG SUB-Q SCH ×4 (07:45→22:58)
[2018-05-13] MEDS ORDERED: LEXISCAN IV ONE (08:11)
--- NOTE | 2018-05-13 10:09 | Progress Note ---
Assessment and Plan Assessment and plan: 67-year-old woman history of hypertension, diabetes, chronic kidney disease, COPD, bipolar, CVA, duodenal ulcer was brought to the emergency room for evaluation. Patient is unable to give a history, the nurse reported that she has dark stools. Hospital course: patient underwent EGD with findings and recommendations as noted below Impression: 1. Duodenal ulcer with visible vessel s/p epi injection and clip placement as above Recommendations: -cont IV PPI for 1-2 days and then switch to PO BID dosing if no further bleeding -okay for clears today; advance tomorrow if no further bleeding episodes -avoid nsaid medications -trend H/H and transfuse as needed to keep hgb > 7 -if rebleeds, repeat EGD vs consult IR -check HP serologies GI bleed - Secondary to duodenal ulcer - Status post EGD - On Protonix drip- will change TO PO - Patient transfused due to change in H/H- No new bleeding noted - GI following and will follow outpatient - Follow HP Serologies - Hemoglobin has remained stable Anemia of acute loss -Status post blood transfusion with 2 units of PRBCS. Receive additional 2 units 2 days ago for a total of 4 -Hemoglobin has remained stable posttransfusion. Abnormal cardiac enzymes/ diastolic congestive heart failure-stable -Probably secondary to demand ischemia due to the anemia -Echocardiogram reviewed shows an ejection fraction of 55-60% with abnormal left ventricular diastolic filling observed -Patient denies acute chest pain -Patient this will stress test today. SIRS -Exact source of infection unknown -On empiric IV antibiotic-treated with Zosyn we'll discontinue and monitor off antibiotics for the next 24 hours -Blood and urine cultures pending -Can d/c antibiotic if no growth in 48hrs Hypernatremia-resolved -We'll discontinue IV fluids at this time Rhabdomyolysis, present on admission -Improving on IV fluid, will monitor History of opiate dependence with withdrawal -stable on anxiolytics Acute toxic/metabolic encephalopathy -Mental status improved -Head CT scan negative DM2, stable -on SSI Chronic kidney disease, stage 3 -stable HTN -controlled on meds Moderate protein calorie malnutrition -accountant certified public consulted Debility -PT/OT eval Constipation: - Miralax PRN Metabolic Encephalopathy -Resolved Bipolar disease- stable DVT/GI prophy SCD Plan discussed with patient and Nursing staff. This discharge with home health in a.m. if stress test is negative today. History Interval history: Patient seen and examined, No further bleeding. had stress test today, appears stronger today, ambulating to bathroom Hospitalist Physical - Physical exam Narrative exam: VITAL SIGNS: Reviewed. GENERAL: The patient appeared well nourished and normally developed. Vital signs as documented. HEAD: No signs of head trauma. EYES: Pupils are equal. Extraocular motions intact. EARS: Hearing grossly intact. MOUTH: Oropharynx is normal. NECK: No adenopathy, no JVD. CHEST: Chest with clear breath sounds bilaterally. No wheezes, rales, or rhonchi. CARDIAC: Regular rate and rhythm. S1 and S2, +2SEM murmurs, No gallops, or rubs. VASCULAR: No Edema. Peripheral pulses normal and equal in all extremities. ABDOMEN: Soft, without detectable tenderness. No sign of distention. No rebound or guarding, and no masses palpated. Bowel Sounds normal. MUSCULOSKELETAL: Good range of motion of all major joints. Extremities without clubbing, cyanosis or edema. NEUROLOGIC EXAM: Alert and oriented x 3. No focal sensory or strength deficits. Speech normal. Follows commands. PSYCHIATRIC: Mood normal. SKIN: Pale appearing Otherwise - Constitutional Vitals: Temp Pulse Resp BP Pulse Ox 98.7 F 85 20 131/53 98 05/13/18 07:26 05/13/18 07:26 05/13/18 07:26 05/13/18 09:19 05/13/18 07:26 General appearance: Present: no acute distress Results - Labs CBC & Chem 7: 05/13/18 06:02 05/13/18 06:02 Labs: Laboratory Last Values WBC 6.5 K/mm3 (4.5-11.0) 05/13/18 06:02 RBC 3.25 M/mm3 (3.65-5.03) L 05/13/18 06:02 Hgb 10.1 gm/dl (10.1-14.3) 05/13/18 06:02 Hct 29.5 % (30.3-42.9) L 05/13/18 06:02 MCV 91 fl (79-97) 05/13/18 06:02 MCH 31 pg (28-32) 05/13/18 06:02 MCHC 34 % (30-34) 05/13/18 06:02 RDW 17.3 % (13.2-15.2) H 05/13/18 06:02 Plt Count 185 K/mm3 (140-440) 05/13/18 06:02 Lymph % (Auto) 19.1 % (13.4-35.0) 05/10/18 04:21 [place] % (Auto) 8.3 % (0.0-7.3) H 05/10/18 04:21 Eos % (Auto) 1.0 % (0.0-4.3) 05/10/18 04:21 Baso % (Auto) 1.3 % (0.0-1.8) 05/10/18 04:21 Lymph # 2.3 K/mm3 (1.2-5.4) 05/10/18 04:21 [place] # 1.0 K/mm3 (0.0-0.8) H 05/10/18 04:21 Eos # 0.1 K/mm3 (0.0-0.4) 05/10/18 04:21 Baso # 0.2 K/mm3 (0.0-0.1) H 05/10/18 04:21 Seg Neutrophils % 70.3 % (40.0-70.0) H 05/10/18 04:21 Seg Neutrophils # 8.5 K/mm3 (1.8-7.7) H 05/10/18 04:21 PT 15.3 Sec. (12.2-14.9) H 05/09/18 21:33 INR 1.14 (0.87-1.13) H 05/09/18 21:33 APTT 29.9 Sec. (24.2-36.6) 05/09/18 21:33 Sodium 140 mmol/L (137-145) 05/13/18 06:02 Potassium 4.0 mmol/L (3.6-5.0) 05/13/18 06:02 Chloride 106.5 mmol/L (98-107) 05/13/18 06:02 Carbon Dioxide 20 mmol/L (22-30) L 05/13/18 06:02 Anion Gap 18 mmol/L 05/13/18 06:02 BUN 10 mg/dL (7-17) 05/13/18 06:02 Creatinine 1.2 mg/dL (0.7-1.2) 05/13/18 06:02 Estimated GFR 45 ml/min 05/13/18 06:02 BUN/Creatinine Ratio 8 % 05/13/18 06:02 Glucose 143 mg/dL (65-100) H 05/13/18 06:02 POC Glucose 133 (70-105) H 05/13/18 07:27 Lactic Acid 1.00 mmol/L (0.7-2.0) 05/09/18 17:47 Calcium 7.8 mg/dL (8.4-10.2) L 05/13/18 06:02 Magnesium 1.90 mg/dL (1.7-2.3) 05/11/18 04:54 Total Bilirubin 0.20 mg/dL (0.1-1.2) 05/09/18 17:48 AST 38 units/L (5-40) 05/09/18 17:48 ALT 14 units/L (7-56) 05/09/18 17:48 Alkaline Phosphatase 78 units/L (35-129) 05/09/18 17:48 Total Creatine Kinase 226 units/L (30-135) H 05/12/18 04:14 CK-MB (CK-2) 2.2 ng/mL (0.0-4.0) 05/10/18 06:01 CK-MB (CK-2) Rel Index 0.2 (0-4) 05/10/18 06:01 Troponin T 0.118 ng/mL (0.00-0.029) H* 05/10/18 06:01 Total Protein 5.7 g/dL (6.3-8.2) L 05/09/18 17:48 Albumin 2.9 g/dL (3.9-5) L 05/09/18 17:48 Albumin/Globulin Ratio 1.0 % 05/09/18 17:48 Triglycerides 130 mg/dL (2-149) 05/09/18 17:48 Cholesterol 196 mg/dL (50-199) 05/09/18 17:48 LDL Cholesterol Direct 133 mg/dL (50-130) H 05/09/18 17:48 HDL Cholesterol 39 mg/dL (40-59) L 05/09/18 17:48 Cholesterol/HDL Ratio 5.02 % 05/09/18 17:48 Urine Color Yellow (Yellow) 05/09/18 18:27 Urine Turbidity Clear (Clear) 05/09/18 18:27 Urine pH 6.0 (5.0-7.0) 05/09/18 18:27 Ur Specific [place] 1.016 (1.003-1.030) 05/09/18 18:27 Urine Protein >500 mg/dL (Negative) 05/09/18 18:27 Urine Glucose (UA) Neg mg/dL (Negative) 05/09/18 18:27 Urine Ketones Tr mg/dL (Negative) 05/09/18 18:27 Urine Blood Neg (Negative) 05/09/18 18:27 Urine Nitrite Neg (Negative) 05/09/18 18:27 Urine Bilirubin Neg (Negative) 05/09/18 18:27 Urine Urobilinogen < 2.0 mg/dL (<2.0) 05/09/18 18:27 Ur Leukocyte Esterase Neg (Negative) 05/09/18 18:27 Urine WBC (Auto) 3.0 /HPF (0.0-6.0) 05/09/18 18:27 Urine RBC (Auto) 2.0 /HPF (0.0-6.0) 05/09/18 18:27 U Epithel Cells (Auto) 1.0 /HPF (0-13.0) 05/09/18 18:27 Urine Bacteria (Auto) 1+ /HPF (Negative) 05/09/18 18:27 Salicylates < 0.3 mg/dL (2.8-20.0) L 05/09/18 17:47 Urine Opiates Screen Presumptive negative 05/09/18 18:27 Urine Methadone Screen Presumptive negative 05/09/18 18:27 Acetaminophen < 5.0 ug/mL (10.0-30.0) L 05/09/18 17:47 Ur Barbiturates Screen Presumptive negative 05/09/18 18:27 Ur Phencyclidine Scrn Presumptive negative 05/09/18 18:27 Ur Amphetamines Screen Presumptive negative 05/09/18 18:27 U Benzodiazepines Scrn Presumptive positive 05/09/18 18:27 Urine Cocaine Screen Presumptive negative 05/09/18 18:27 U Marijuana (THC) Screen Presumptive negative 05/09/18 18:27 Drugs of Abuse Note Disclamer 05/09/18 18:27 Plasma/Serum Alcohol < 0.01 % (0-0.07) 05/09/18 17:54 Blood Type B NEGATIVE 05/09/18 21:33 Antibody Screen Negative 05/09/18 21:33 Crossmatch See Detail 05/09/18 21:33 Nutrition/Malnutrition Assess - Dietary Evaluation Nutrition/Malnutrition Findings: Nutrition Notes Start: 05/12/18 16:13 Freq: Status: Active Protocol: Document 05/12/18 16:13 RM (Rec: 05/12/18 16:20 RM [id number]) Nutrition Notes Need for Assessment generated from: MD Order Initial or Follow up Assessment Current Diagnosis CKD(stage I-IV) Diabetes Hypertension Other Pertinent Diagnosis Duodenal ulcer, GI bleed, Bipolar Current Diet Clear liquid Labs/Tests Reviewed Pertinent Medications Reviewed Height 4 ft 9 in Weight 61.1 kg Usual Body Weight 60.45 kg [place] Body Weight (kg) 38.63 BMI 29.1 Subjective/Other Information Consulted for malnutrition. Pt stated that she is drinking most of her meals. Stated UBW was 133 lbs 1 week ago. No physical signs of malnutrition. Percent of energy/protein needs met: 34%/24% Burn Absent Trauma Absent #2 Nutrition Diagnosis Inadequate oral intake Etiology duodenal ulcer, GI bleed As Evidenced by Signs and Symptoms pt on clear liquid diet Is patient on ventilator? No Is Patient Ambulatory and/or Out of Bed Yes REE-([facility]-ambulatory/OOB) [ [id number] [id number]] Calculation Used for Recommendations [facility] Additional Notes Protein Needs: 49-61g (0.8-1g/ kg) Fluid Needs: 1 ml/kcal Nutrition Intervention Change Diet Order: Advance diet when medically able Add Supplement/Snack (indicate name/kcal Ensure Clear 1 dialy /protein ) Provides kCal: 240 Provides Protein (gm) 8 Goal #1 Diet advancement Goal #2 Meet at least 75% of calorie and protein needs via PO and ONS intakes Anticipated Discharge Needs: Unable to determine at this time Follow-Up By: 05/14/18 Additional Comments Follow for PO and ONS intakes
[2018-05-13] MEDS: VALIUM PO SCH ×2 (11:06→22:58)
[2018-05-13] MEDS: OxyCONTIN PO SCH ×2 (11:06→22:58)
[2018-05-13] MEDS: PROTONIX PO SCH ×2 (11:08→22:58)
[2018-05-13] MEDS: NORVASC PO SCH (11:08)
[2018-05-13] MEDS: SODIUM CHLORIDE FLUSH SYRINGE 10 ML IV SCH ×2 (11:09→22:58)
--- NOTE | 2018-05-13 12:53 | Progress Note ---
Assessment and Plan S/p lexiscan MPI stress test today which was negative, EF 62%. Currently stable cardiac status. Will follow on as needed basis. The patient has been seen in conjunction with Dr. Strong who agrees with the assessment and plan of care. - Patient Problems (1) Anemia requiring transfusions Current Visit: Yes Status: Acute (2) GI bleed Current Visit: Yes Status: Acute (3) Elevated troponin Current Visit: Yes Status: Acute (4) Encephalopathy Current Visit: Yes Status: Acute (5) Acute hypoxemic respiratory failure Current Visit: No Status: Acute (6) CKD (chronic kidney disease) Current Visit: No Status: Chronic Qualifiers: Chronic kidney disease stage: stage 3 (moderate) Qualified Code(s): N18.3 - Chronic kidney disease, stage 3 (moderate) (7) COPD (chronic obstructive pulmonary disease) Current Visit: No Status: Chronic (8) Hypertension Current Visit: No Status: Chronic Qualifiers: Hypertension type: essential hypertension (9) IDDM (insulin dependent diabetes mellitus) Current Visit: No Status: Chronic (10) Rhabdomyolysis Current Visit: Yes Status: Acute Subjective Date of service: 05/13/18 Principal diagnosis: GI bleed Interval history: pt resting in bed, no current cardiac complaints. for stress test. Objective Last Vital Signs Temp 98.7 F 05/13/18 12:48 Pulse 86 05/13/18 12:48 Resp 16 05/13/18 12:48 BP 155/53 05/13/18 12:48 Pulse Ox 92 05/13/18 12:48 - Physical Examination General: No Apparent Distress HEENT: Positive: PERRL, Normocephaly, Mucus Membranes Moist Neck: Positive: neck supple, trachea midline Cardiac: Positive: Reg Rate and Rhythm, S1/S2 Lungs: Positive: Decreased Breath Sounds Neuro: Positive: Grossly Intact Abdomen: Positive: Soft. Negative: Tender Skin: Negative: Wound Musculoskeletal: No Pain Extremities: Absent: edema - Labs and Meds CBC 05/12/18 05/13/18 Range/Units 17:05 06:02 WBC 6.5 (4.5-11.0) K/mm3 RBC 3.25 L (3.65-5.03) M/mm3 Hgb 10.3 10.1 (10.1-14.3) gm/dl Hct 30.8 29.5 L (30.3-42.9) % Plt Count 185 (140-440) K/mm3 Comprehensive Metabolic Panel 05/13/18 Range/Units 06:02 Sodium 140 (137-145) mmol/L Potassium 4.0 (3.6-5.0) mmol/L Chloride 106.5 (98-107) mmol/L Carbon Dioxide 20 L (22-30) mmol/L BUN 10 (7-17) mg/dL Creatinine 1.2 (0.7-1.2) mg/dL Glucose 143 H (65-100) mg/dL Calcium 7.8 L (8.4-10.2) mg/dL
--- NOTE | 2018-05-13 14:43 | Treadmill Report ---
MYOCARDIAL PERFUSION IMAGING STUDIES Room number: 475 Resting images revealed homogeneous radioisotope activity along with increased gut uptake. At 11 o'clock position, there was slightly diminished uptake probably due to insertion of right ventricular wall at that point. On post-Lexiscan images, again similar uptake is noted. Slightly diminished radioisotope activity noted at the [place] not significant. On gated scan, ejection fraction was noted to be 62%. IMPRESSION: 1. This test is negative for reversible ischemia. 2. Ejection fraction is normal at 62%. JOB# [id number] SHARAN/ZAK
[2018-05-14] MEDS: NEURONTIN PO SCH (06:00)
[2018-05-14 07:23] LABS: BUN/Creatinine Ratio 8; Blood Urea Nitrogen 9 mg/dL (7-17); Calcium 8.5 mg/dL (8.4-10.2)
[2018-05-14 07:25] LABS: Hematocrit 32.5 % (30.3-42.9); Hemoglobin 10.4 gm/dl (10.1-14.3); Mean Corpuscular HGB Conc 32 % (30-34); Mean Corpuscular Volume 92 fl (79-97); Platelet Count 218 K/mm3 (140-440); Red Blood Count 3.55 M/mm3 (3.65-5.03); Red Cell Distribution Width 17.3 % (13.2-15.2)
--- NOTE | 2018-05-14 08:43 | Discharge Summary ---
Providers - Providers Date of Admission: 05/09/18 21:55 Attending physician: STACI BERUMEN MD 05/09/18 21:25 Consult to Physician [CONS] Routine Comment: aware Consulting Provider: BRISEYDA VERMA Physician Instructions: Reason For Exam: gi bleed 05/10/18 04:56 Consult to Physician [CONS] Routine Comment: Consulting Provider: AURORA FONG Physician Instructions: Reason For Exam: ab ce 05/10/18 23:22 Consult to Dietitian/Nutrition [CONS] Routine Physician Instructions: Reason For Exam: Reason for Consult: Malnutrition 05/12/18 09:34 Occupational Therapy Evaluate and Treat [CONS] Routine Comment: Reason For Exam: DEBILITY Physical Therapy Evaluation and Treat [CONS] Routine Comment: Reason For Exam: DEBILITY Primary care physician: VU HOLDEN Hospitalization Reason for admission: GI bleed Condition: Stable Hospital course: 67-year-old woman history of hypertension, diabetes, chronic kidney disease, COPD, bipolar, CVA, duodenal ulcer was brought to the emergency room for evaluation. Patient is unable to give a history, the nurse reported that she has dark stools. Hospital course: patient underwent EGD with findings and recommendations as noted below Impression: 1. Duodenal ulcer with visible vessel s/p epi injection and clip placement as ab ove Recommendations: -cont IV PPI for 1-2 days and then switch to PO BID dosing if no further bleeding -okay for clears today; advance tomorrow if no further bleeding episodes -avoid nsaid medications -trend H/H and transfuse as needed to keep hgb > 7 -if rebleeds, repeat EGD vs consult IR -check HP serologies Her hemoglobin did remain stable following a total of 4 packed red blood cells transfused. She is recommended to follow-up with GI outpatient. Extensive discussion was had with this patient considering her home status and in fact she does have appended APS referral. She refuses to place in a snf facility. I discussed the importance of this with the patient's but again she flat out denies once instituted. She was treated with antibiotics although no source of infection was identified. She did have noted abnormal clinic enzymes and underwent a stress test which was negative for acute ischemia nevertheless diastolic dysfunction was noted. This findings have been discussed and advice to the patient. She will continue on by mouth PPI and follow with GI and cardiology outpatient. GI bleed Anemia of acute loss Abnormal cardiac enzymes/ diastolic congestive heart failure-stable SIRS Hypernatremia-resolved Rhabdomyolysis, present on admission History of opiate dependence with withdrawal Acute toxic/metabolic encephalopathy DM2, stable Chronic kidney disease, stage 3 HTN Moderate protein calorie malnutrition Debility Constipation: Metabolic Encephalopathy Bipolar disease- Disposition: DC/TX-06 HOME UNDER HOME [facility] Time spent for discharge: 35 mins Core Measure Documentation - Palliative Care Palliative Care/ Comfort Measures: Not Applicable - Core Measures Any of the following diagnoses?: none Exam - Physical Exam Narrative exam: VITAL SIGNS: Reviewed. GENERAL: The patient appeared well nourished and normally developed. Vital signs as documented. HEAD: No signs of head trauma. EYES: Pupils are equal. Extraocular motions intact. EARS: Hearing grossly intact. MOUTH: Oropharynx is normal. NECK: No adenopathy, no JVD. CHEST: Chest with clear breath sounds bilaterally. No wheezes, rales, or rhonchi. CARDIAC: Regular rate and rhythm. S1 and S2, +2SEM murmurs, No gallops, or ru bs. VASCULAR: No Edema. Peripheral pulses normal and equal in all extremities. ABDOMEN: Soft, without detectable tenderness. No sign of distention. No rebound or guarding, and no masses palpated. Bowel Sounds normal. MUSCULOSKELETAL: Good range of motion of all major joints. Extremities without clubbing, cyanosis or edema. NEUROLOGIC EXAM: Alert and oriented x 3. No focal sensory or strength deficits. Speech normal. Follows commands. PSYCHIATRIC: Mood normal. SKIN: Pale appearing Otherwise - Constitutional Vitals: Temp Pulse Resp BP Pulse Ox 98.7 F 84 20 131/74 88 05/14/18 04:13 05/14/18 04:13 05/14/18 04:13 05/14/18 04:13 05/14/18 04:13 Plan Activity: advance as tolerated, fall precautions Diet: low fat, low salt, diabetic Special Instructions: record daily weights, record daily BP diary Follow up with: BRISEYDA VERMA MD [Staff Physician] - 7 Days VU HOLDEN MD [Primary Care Provider] - 7 Days NEHA BEACH MD [Staff Physician] - 7 Days Prescriptions: Polyethylene Glycol 3350 [Miralax 3350] 17 gm PO QDAY PRN #30 powd.pack PRN Reason: Constipation Pantoprazole [Protonix TAB] 40 mg PO BID #60 tablet
[2018-05-14] MEDS: VALIUM PO SCH (09:07)
[2018-05-14] MEDS: NORVASC PO SCH (09:07)
[2018-05-14] MEDS: OxyCONTIN PO SCH (09:07)
[2018-05-14] MEDS: HumaLOG SUB-Q SCH ×2 (09:08→13:12)
[2018-05-14] MEDS: PROTONIX PO SCH (09:08)
[2018-05-14] MEDS: SODIUM CHLORIDE FLUSH SYRINGE 10 ML IV SCH (09:08)
[2018-05-14 10:29] VITALS: BP 145/71
== END 2018-05-14 15:36 | disposition home health service (06) | DRG 377 ==
LOC: ED 17:07 → IMCU 21:55 → 4A 05-12 16:45
PROVIDERS: ADMIT Internal Medicine; ATTEND Internal Medicine
PROC: 30233N1 Transfusion of Nonautologous Red Blood Cells into Peripheral Vein, Percutaneous Approach (ICD-10-PCS; principal; 2018-05-10)
PROC: 0W3P8ZZ Control Bleeding in Gastrointestinal Tract, Via Natural or Artificial Opening Endoscopic (ICD-10-PCS; 2018-05-10)
DX: K26.0 Acute duodenal ulcer with hemorrhage (principal); G92 Toxic encephalopathy; J96.01 Acute respiratory failure with hypoxia; D62 Acute posthemorrhagic anemia; E87.0 Hyperosmolality and hypernatremia; I13.0 Hypertensive heart and chronic kidney disease with heart failure and stage 1 through stage 4 chronic kidney disease, or unspecified chronic kidney disease; I50.30 Unspecified diastolic (congestive) heart failure; R65.10 Systemic inflammatory response syndrome (SIRS) of non-infectious origin without acute organ dysfunction; M62.82 Rhabdomyolysis; E44.0 Moderate protein-calorie malnutrition; I48.91 Unspecified atrial fibrillation; E11.22 Type 2 diabetes mellitus with diabetic chronic kidney disease; J44.9 Chronic obstructive pulmonary disease, unspecified; F31.9 Bipolar disorder, unspecified; N18.3 Chronic kidney disease, stage 3 (moderate); F11.21 Opioid dependence, in remission; K59.00 Constipation, unspecified; Z86.73 Personal history of transient ischemic attack (TIA), and cerebral infarction without residual deficits; Z88.2 Allergy status to sulfonamides; M19.90 Unspecified osteoarthritis, unspecified site; F17.200 Nicotine dependence, unspecified, uncomplicated; Z68.29 Body mass index [BMI] 29.0-29.9, adult
CPT/HCPCS: 36415; 36430; 70450; 78452; 80048; 80053; 80061; 80307; 80320; 81001; 82140; 82550; 82553; 82962; 83735; 84484; 85014; 85018; 85025; 85027; 85610; 85730; 86850; 86900; 86901; 86920; 87040; 87086; 93005; 93010; 93017; 93306; G0378; A9502; C9113; G0480; J0171; J1815; J1940; J2543; J2704; J2785; J7030; J7040; P9016

== ENCOUNTER 2018-05-21 15:57 | Inpatient (IN) | payer MEDICARE ==
[2018-05-21] MEDS ORDERED: NACL 0.9% 1000 ML 1,000 ML IV ONE ×3 (16:49→20:34)
--- NOTE | 2018-05-21 17:06 | Emergency Department Report ---
ED Altered Mental Status HPI - General Chief Complaint: Altered Mental Status Stated Complaint: AMS/COLD/PAIN ALL OVER Time Seen by Provider: 05/21/18 16:42 Source: EMS Mode of arrival: Stretcher Limitations: Altered Mental Status, Physical Limitation - History of Present Illness Initial Comments: Patient is 67 years old female, lives at by herself. History of CVA, diabetes and hypertension. Patient brought to the emergency room via EMS after patient was found by her neighbors on the floor with decreased responsiveness. Patient found to have multiple abrasions and bruising all over her body patient covered in feces. Patient is not communicating verbally, she only moan on for questions. Patient is moving all extremities. Unable to obtain more history at this time. MD Complaint: altered mental status, confusion, decreased responsiveness Consistency of Symptoms: unknown - Related Data Home Medications Medication Instructions Recorded Confirmed Last Taken Gabapentin [Neurontin] 400 mg PO Q8HR 02/21/18 05/10/18 Unknown amLODIPine [Norvasc] 10 mg PO DAILY 02/21/18 05/10/18 Unknown traMADol [Ultram 50 MG tab] 50 mg PO Q8H PRN 02/21/18 05/10/18 Unknown Diazepam [Valium] 10 mg PO BID 05/10/18 05/10/18 Unknown Ipratropium/Albuter (Nf) 3 mcg IH TID 05/10/18 05/10/18 Unknown [Combivent Inhaler] Lisinopril [Zestril] 20 mg PO DAILY 05/10/18 05/10/18 Unknown QUEtiapine [SEROquel] 100 mg PO HS 05/10/18 05/10/18 Unknown metFORMIN 500 mg PO DAILY 05/10/18 05/10/18 Unknown Previous Rx's Medication Instructions Recorded Last Taken Type Pantoprazole [Protonix TAB] 40 mg PO BID #60 tablet 05/14/18 Unknown Rx Polyethylene Glycol 3350 [Miralax 17 gm PO QDAY PRN #30 powd.pack 05/14/18 Unknown Rx 3350] Allergies Allergy/AdvReac Type Severity Reaction Status Date / Time Sulfa (Sulfonamide Allergy Rash Verified 05/09/18 17:10 Antibiotics) ED Review of Systems ROS: Stated complaint: AMS/COLD/PAIN ALL OVER Other details as noted in HPI Comment: Unobtainable due to pts medical conditions ED Past Medical Hx - Past Medical History Hx Hypertension: Yes Hx CVA: Yes (tia) Hx Heart Attack/AMI: (Pt denies) Hx Diabetes: Yes Hx Deep Vein Thrombosis: No Hx GERD: Yes Hx Renal Disease: Yes (Renal insufficiency ) Hx Arthritis: Yes Hx COPD: Yes Additional medical history: tremors, pancreatitis - Surgical History Hx Pacemaker: No Hx Internal Defibrillator: No Hx Breast Surgery: Yes (CYST) Additional Surgical History: Amputated 3rd toe left foot. - Social History Smoking Status: Former Smoker - Medications Home Medications: Home Medications Medication Instructions Recorded Confirmed Last Taken Type Gabapentin [Neurontin] 400 mg PO Q8HR 02/21/18 05/10/18 Unknown History amLODIPine [Norvasc] 10 mg PO DAILY 02/21/18 05/10/18 Unknown History traMADol [Ultram 50 MG tab] 50 mg PO Q8H PRN 02/21/18 05/10/18 Unknown History Diazepam [Valium] 10 mg PO BID 05/10/18 05/10/18 Unknown History Ipratropium/Albuter (Nf) 3 mcg IH TID 05/10/18 05/10/18 Unknown History [Combivent Inhaler] Lisinopril [Zestril] 20 mg PO DAILY 05/10/18 05/10/18 Unknown History QUEtiapine [SEROquel] 100 mg PO HS 05/10/18 05/10/18 Unknown History metFORMIN 500 mg PO DAILY 05/10/18 05/10/18 Unknown History Pantoprazole [Protonix TAB] 40 mg PO BID #60 tablet 05/14/18 Unknown Rx Polyethylene Glycol 3350 [Miralax 17 gm PO QDAY PRN #30 powd.pack 05/14/18 Unknown Rx 3350] ED Physical Exam - General Limitations: Altered Mental Status, Physical Limitation General appearance: obtunded - Head Head exam: Present: other (feces on patient face) - ENT ENT exam: Present: mucous membranes dry - Neck Neck exam: Present: normal inspection. Absent: tenderness, meningismus - Respiratory Respiratory exam: Present: normal lung sounds bilaterally - Cardiovascular Cardiovascular Exam: Present: tachycardia - GI/Abdominal GI/Abdominal exam: Present: soft, normal bowel sounds. Absent: distended, tenderness, guarding, rebound, rigid, mass, bruit, pulsatile mass - Extremities Exam Extremities exam: Present: normal inspection, full ROM, normal capillary refill. Absent: calf tenderness - Back Exam Back exam: Present: normal inspection, full ROM - Neurological Exam Neurological exam: Present: altered - Skin Skin exam: Present: dry, abrasion - Assessment Assessment Interval: Baseline - Level of Consciousness 1a. Level of Consciousness: resp stimuli/obtunded - LOC Questions 1b. LOC Questions: answers no questions correctly - LOC Command 1c. LOC Commands: performs 1 task correctly - Best Gaze 2. Best Gaze: normal - Visual 3. Visual: no visual loss - Facial Palsy 4. Facial Palsy: normal symmetrical movement - Motor Arm 5a. Motor Arm Left: no drift 5b. Motor Arm Right: no drift - Motor Leg 6a. Motor Leg Left: no drift 6b. Motor Leg Right: no drift - Limb Ataxia 7. Limb Ataxia: absent - Sensory 8. Sensory: no response/quadraplegic - Best Language 9. Best Language: mute/global aphasia - Dysarthria 10. Dysarthria: mute/anarrthric - Extinction and Inattention 11. Extinction/Inattention: no abnormality - Scoring Total Score: 12 Stroke Severity: Moderate Stroke ED Course Vital Signs 05/21/18 05/21/18 05/21/18 16:20 16:25 16:30 Temperature 98.3 F Pulse Rate 103 H Respiratory 20 Rate Blood Pressure 154/97 Blood Pressure [Left] O2 Sat by Pulse 86 100 100 Oximetry 05/21/18 05/21/18 05/21/18 16:46 17:00 17:16 Temperature Pulse Rate Respiratory Rate Blood Pressure Blood Pressure [Left] O2 Sat by Pulse 97 99 99 Oximetry 05/21/18 05/21/18 05/21/18 17:30 17:45 18:00 Temperature Pulse Rate 108 H 99 H 101 H Respiratory 25 H 22 24 Rate Blood Pressure 153/82 159/59 150/57 Blood Pressure [Left] O2 Sat by Pulse 99 99 99 Oximetry 05/21/18 05/21/18 05/21/18 18:15 18:30 18:45 Temperature Pulse Rate 101 H 100 H 99 H Respiratory 26 H 24 24 Rate Blood Pressure 174/61 160/63 160/58 Blood Pressure [Left] O2 Sat by Pulse 99 99 99 Oximetry 05/21/18 05/21/18 05/21/18 19:00 19:16 19:30 Temperature 97.8 F Pulse Rate 102 H 106 H 103 H Respiratory 18 22 25 H Rate Blood Pressure 160/58 129/51 143/34 Blood Pressure 148/46 [Left] O2 Sat by Pulse 100 97 99 Oximetry 05/21/18 05/21/18 19:46 20:46 Temperature Pulse Rate 96 H 97 H Respiratory 29 H 24 Rate Blood Pressure 160/65 164/54 Blood Pressure [Left] O2 Sat by Pulse 99 99 Oximetry - Reevaluation(s) Reevaluation #1: 05/21/18 21:20 Patient evaluated by me multiple times. Patient remained obtunded. Vital signs stable. - Consultations Consultation #1: 05/21/18 21:14 I discussed the patient is Dr. Hinton, advised to admit patient to hospitalist and Dr. Strong will follow the patient in the morning. - Lab Data Result diagrams: 05/21/18 17:23 05/21/18 17:23 Lab Results 05/21/18 05/21/18 05/21/18 Range/Units 17:23 17:23 17:23 WBC 11.5 H (4.5-11.0) K/mm3 RBC 3.89 (3.65-5.03) M/mm3 Hgb 11.6 (10.1-14.3) gm/dl Hct 35.7 (30.3-42.9) % MCV 92 (79-97) fl MCH 30 (28-32) pg MCHC 32 (30-34) % RDW 17.7 H (13.2-15.2) % Plt Count 520 H (140-440) K/mm3 Lymph % (Auto) 8.6 L (13.4-35.0) % [place] % (Auto) 4.3 (0.0-7.3) % Eos % (Auto) 0.4 (0.0-4.3) % Baso % (Auto) 0.7 (0.0-1.8) % Lymph # 1.0 L (1.2-5.4) K/mm3 [place] # 0.5 (0.0-0.8) K/mm3 Eos # 0.0 (0.0-0.4) K/mm3 Baso # 0.1 (0.0-0.1) K/mm3 Seg Neutrophils % 86.0 H (40.0-70.0) % Seg Neutrophils # 9.9 H (1.8-7.7) K/mm3 PT 14.7 (12.2-14.9) Sec. INR 1.08 (0.87-1.13) APTT 32.4 (24.2-36.6) Sec. Sodium 143 (137-145) mmol/L Potassium 4.7 (3.6-5.0) mmol/L Chloride 105.5 (98-107) mmol/L Carbon Dioxide 20 L (22-30) mmol/L Anion Gap 22 mmol/L BUN 16 (7-17) mg/dL Creatinine 1.0 (0.7-1.2) mg/dL Estimated GFR 55 ml/min BUN/Creatinine Ratio 16 % Glucose 129 H (65-100) mg/dL Lactic Acid (0.7-2.0) mmol/L Calcium 9.3 (8.4-10.2) mg/dL Total Bilirubin 0.30 (0.1-1.2) mg/dL Direct Bilirubin < 0.2 (0-0.2) mg/dL Indirect Bilirubin 0.1 mg/dL AST 24 (5-40) units/L ALT 16 (7-56) units/L Alkaline Phosphatase 97 (35-129) units/L Ammonia (25-60) umol/L Total Creatine Kinase 699 H (30-135) units/L Troponin T 0.152 H* (0.00-0.029) ng/mL Total Protein 7.4 (6.3-8.2) g/dL Albumin 3.7 L (3.9-5) g/dL Albumin/Globulin Ratio 1.0 % Triglycerides 154 H (2-149) mg/dL Cholesterol 235 H (50-199) mg/dL LDL Cholesterol Direct 162 H (50-130) mg/dL HDL Cholesterol 47 (40-59) mg/dL Cholesterol/HDL Ratio 5.00 % Salicylates (2.8-20.0) mg/dL Acetaminophen (10.0-30.0) ug/mL Plasma/Serum Alcohol (0-0.07) % 05/21/18 05/21/18 05/21/18 Range/Units 17:23 17:23 17:23 WBC (4.5-11.0) K/mm3 RBC (3.65-5.03) M/mm3 Hgb (10.1-14.3) gm/dl Hct (30.3-42.9) % MCV (79-97) fl MCH (28-32) pg MCHC (30-34) % RDW (13.2-15.2) % Plt Count (140-440) K/mm3 Lymph % (Auto) (13.4-35.0) % [place] % (Auto) (0.0-7.3) % Eos % (Auto) (0.0-4.3) % Baso % (Auto) (0.0-1.8) % Lymph # (1.2-5.4) K/mm3 [place] # (0.0-0.8) K/mm3 Eos # (0.0-0.4) K/mm3 Baso # (0.0-0.1) K/mm3 Seg Neutrophils % (40.0-70.0) % Seg Neutrophils # (1.8-7.7) K/mm3 PT (12.2-14.9) Sec. INR (0.87-1.13) APTT (24.2-36.6) Sec. Sodium (137-145) mmol/L Potassium (3.6-5.0) mmol/L Chloride (98-107) mmol/L Carbon Dioxide (22-30) mmol/L Anion Gap mmol/L BUN (7-17) mg/dL Creatinine (0.7-1.2) mg/dL Estimated GFR ml/min BUN/Creatinine Ratio % Glucose (65-100) mg/dL Lactic Acid 1.10 (0.7-2.0) mmol/L Calcium (8.4-10.2) mg/dL Total Bilirubin (0.1-1.2) mg/dL Direct Bilirubin (0-0.2) mg/dL Indirect Bilirubin mg/dL AST (5-40) units/L ALT (7-56) units/L Alkaline Phosphatase (35-129) units/L Ammonia 20.0 L (25-60) umol/L Total Creatine Kinase (30-135) units/L Troponin T (0.00-0.029) ng/mL Total Protein (6.3-8.2) g/dL Albumin (3.9-5) g/dL Albumin/Globulin Ratio % Triglycerides (2-149) mg/dL Cholesterol (50-199) mg/dL LDL Cholesterol Direct (50-130) mg/dL HDL Cholesterol (40-59) mg/dL Cholesterol/HDL Ratio % Salicylates < 0.3 L (2.8-20.0) mg/dL Acetaminophen (10.0-30.0) ug/mL Plasma/Serum Alcohol (0-0.07) % 05/21/18 05/21/18 Range/Units 17:23 17:23 WBC (4.5-11.0) K/mm3 RBC (3.65-5.03) M/mm3 Hgb (10.1-14.3) gm/dl Hct (30.3-42.9) % MCV (79-97) fl MCH (28-32) pg MCHC (30-34) % RDW (13.2-15.2) % Plt Count (140-440) K/mm3 Lymph % (Auto) (13.4-35.0) % [place] % (Auto) (0.0-7.3) % Eos % (Auto) (0.0-4.3) % Baso % (Auto) (0.0-1.8) % Lymph # (1.2-5.4) K/mm3 [place] # (0.0-0.8) K/mm3 Eos # (0.0-0.4) K/mm3 Baso # (0.0-0.1) K/mm3 Seg Neutrophils % (40.0-70.0) % Seg Neutrophils # (1.8-7.7) K/mm3 PT (12.2-14.9) Sec. INR (0.87-1.13) APTT (24.2-36.6) Sec. Sodium (137-145) mmol/L Potassium (3.6-5.0) mmol/L Chloride (98-107) mmol/L Carbon Dioxide (22-30) mmol/L Anion Gap mmol/L BUN (7-17) mg/dL Creatinine (0.7-1.2) mg/dL Estimated GFR ml/min BUN/Creatinine Ratio % Glucose (65-100) mg/dL Lactic Acid (0.7-2.0) mmol/L Calcium (8.4-10.2) mg/dL Total Bilirubin (0.1-1.2) mg/dL Direct Bilirubin (0-0.2) mg/dL Indirect Bilirubin mg/dL AST (5-40) units/L ALT (7-56) units/L Alkaline Phosphatase (35-129) units/L Ammonia (25-60) umol/L Total Creatine Kinase (30-135) units/L Troponin T (0.00-0.029) ng/mL Total Protein (6.3-8.2) g/dL Albumin (3.9-5) g/dL Albumin/Globulin Ratio % Triglycerides (2-149) mg/dL Cholesterol (50-199) mg/dL LDL Cholesterol Direct (50-130) mg/dL HDL Cholesterol (40-59) mg/dL Cholesterol/HDL Ratio % Salicylates (2.8-20.0) mg/dL Acetaminophen < 5.0 L (10.0-30.0) ug/mL Plasma/Serum Alcohol < 0.01 (0-0.07) % - EKG Data -: EKG Interpreted by Me EKG shows normal: sinus rhythm Rate: tachycardia - Radiology Data Radiology results: report reviewed CT brain is negative for acute findings Chest x-ray is negative for acute finding. - Medical Decision Making Patient is 67 years old female, lives at by herself. History of CVA, diabetes and hypertension. Patient brought to the emergency room via EMS after patient was found by her neighbors on the floor with decreased responsiveness. Patient found to have multiple abrasions and bruising all over her body patient covered in feces. Patient is not communicating verbally, she only moan on for questions. Patient is moving all extremities. Unable to obtain more history at this time. Patient remained obtunded but stable vital sign. CT brain is negative for acute finding. Chest x-ray is negative for acute findings. EKG sinus tachycardia. First troponin is elevated. I discussed the patient is Dr. Hinton from cardiology who advised that Dr. Strong will follow-up on the patient. Patient also found to have a acute rhabdomyolysis but kidney function is preserved. I discussed the patient is Dr. Griselda Aguilar, she agreed to admit the patient to medical service. Critical Care Time: Yes Critical care time in (mins) excluding proc time.: 30 Critical care attestation.: If time is entered above; I have spent that time in minutes in the direct care of this critically ill patient, excluding procedure time. ED Disposition Clinical Impression: Altered mental status, Rhabdomyolysis, NSTEMI (non-ST elevated myocardial infarction) Disposition: -09 OP ADMIT IP TO THIS HOSP Is pt being admited?: Yes Condition: Stable Referrals: VU HOLDEN MD [Primary Care Provider] - 3-5 Days
[2018-05-21 18:01] LABS: Basophils # (Auto) 0.1 K/mm3 (0.0-0.1); Basophils % (Auto) 0.7 % (0.0-1.8); Eosinophils % (Auto) 0.4 % (0.0-4.3); Hematocrit 35.7 % (30.3-42.9); Hemoglobin 11.6 gm/dl (10.1-14.3); Lymphocytes % (Auto) 8.6 % (13.4-35.0); Mean Corpuscular HGB Conc 32 % (30-34); Mean Corpuscular Volume 92 fl (79-97); Monocytes # (Auto) 0.5 K/mm3 (0.0-0.8); Monocytes % (Auto) 4.3 % (0.0-7.3); Platelet Count 520 K/mm3 (140-440); Red Blood Count 3.89 M/mm3 (3.65-5.03); Red Cell Distribution Width 17.7 % (13.2-15.2)
[2018-05-21 18:14] LABS: Alanine Aminotransferase 16 units/L (7-56); Albumin 3.7 g/dL (3.9-5); BUN/Creatinine Ratio 16; Blood Urea Nitrogen 16 mg/dL (7-17); Calcium 9.3 mg/dL (8.4-10.2); Hemolysis Index 5
[2018-05-21 18:15] LABS: Bilirubin,Direct < 0.2 mg/dL (0-0.2)
[2018-05-21 18:16] LABS: INR 1.08 (0.87-1.13)
[2018-05-21 18:17] LABS: Partial Thromboplastin Time 32.4 Sec. (24.2-36.6)
[2018-05-21 18:36] LABS: HDL Cholesterol 47 mg/dL (40-59); LDL Cholesterol,Direct 162 mg/dL (50-130)
--- NOTE | 2018-05-21 19:46 | XRay Report ---
PROCEDURE: XR CHEST 1V AP HISTORY: AMS FINDINGS: Single frontal view of the chest was acquired and compared to the prior examination of 2018. The heart is normal in size. The lungs appear clear. The pleura and mediastinum are within normal fernandez its. IMPRESSION: No active disease in the chest This document is electronically signed by Humble Goncalves MD., May 21 2018 07:43:54 PM ET
[2018-05-21] MEDS ORDERED: NACL 0.9% 1000 ML 1,000 ML ONE (20:30)
--- NOTE | 2018-05-21 20:35 | Cat Scan Report ---
PROCEDURE: CT HEAD/BRAIN WO CON HISTORY: AMS FINDINGS: Unenhanced CT of the brain was performed and demonstrates no acute intracranial hemorrhage, extra-axi al fluid collection, midline shift or mass effect. The ventricles and basal cisterns are not effaced. There is intracranial atherosclerosis. No acute infarct is seen. MRI may be considered if patient has persistent symptomatology. There is partial opacification of the left mastoid air cells. The right mastoid air cells appear marcelle r. The middle ears appear clear. There is no evidence of acute sinusitis. IMPRESSION: No acute intracranial hemorrhage This document is electronically signed by Humble Goncalves MD., May 21 2018 08:32:50 PM ET
[2018-05-21 22:33] LABS: Bacteria,Urine 2+ /HPF (Negative); Bilirubin,Urine NEG (Negative); Blood,Urine NEG (Negative); Color,Urine Yellow (Yellow); Mucus,Urine FEW /HPF; Urobilinogen,Urine < 2.0 mg/dL (<2.0)
[2018-05-21 22:34] LABS: Protein,Urine >500 mg/dL (Negative)
[2018-05-21 22:39] LABS: Amphetamine Screen,Urine PRESUMPTIVE NEGATIVE; Cannabinoid Screen,Urine PRESUMPTIVE NEGATIVE; Cocaine Screen,Urine PRESUMPTIVE NEGATIVE; Methadone Screen,Urine PRESUMPTIVE NEGATIVE; Opiate Screen,Urine PRESUMPTIVE NEGATIVE
[2018-05-21 23:19] LABS: Benzodiazepines Screen,Urine PRESUMPTIVE POSITIVE
--- NOTE | 2018-05-21 23:24 | History and Physical Report ---
History of Present Illness Date of examination: 05/21/18 History of present illness: 67-year-old woman history of hypertension, diabetes, chronic kidney disease, COPD, bipolar, CVA, duodenal ulcer was brought to the emergency room because the neighbors found her at home on the floor covered in feces, confused. Patient is unable to much history except that she has abdominal pain. The patient was just discharged from the hospital on May 14, status post recent GI bleed with clipping of duodenal ulcer, she had a negative stress test. She declined to be placed in a penitentiary on the last admission. Review of system is unobtainable PAST MEDICAL HISTORY: hypertension, diabetes, chronic kidney disease, COPD, bipolar, CVA, GI bleed, duodenal ulcer PAST SURGICAL HISTORY: Unknown SOCIAL HISTORY: Unknown FAMILY HISTORY: Unknown Medications and Allergies Allergies Allergy/AdvReac Type Severity Reaction Status Date / Time Sulfa (Sulfonamide Allergy Rash Verified 05/09/18 17:10 Antibiotics) Home Medications Medication Instructions Recorded Confirmed Last Taken Type Gabapentin [Neurontin] 400 mg PO Q8HR 02/21/18 05/10/18 Unknown History amLODIPine [Norvasc] 10 mg PO DAILY 02/21/18 05/10/18 Unknown History traMADol [Ultram 50 MG tab] 50 mg PO Q8H PRN 02/21/18 05/10/18 Unknown History Diazepam [Valium] 10 mg PO BID 05/10/18 05/10/18 Unknown History Ipratropium/Albuter (Nf) 3 mcg IH TID 05/10/18 05/10/18 Unknown History [Combivent Inhaler] Lisinopril [Zestril] 20 mg PO DAILY 05/10/18 05/10/18 Unknown History QUEtiapine [SEROquel] 100 mg PO HS 05/10/18 05/10/18 Unknown History metFORMIN 500 mg PO DAILY 05/10/18 05/10/18 Unknown History Pantoprazole [Protonix TAB] 40 mg PO BID #60 tablet 05/14/18 Unknown Rx Polyethylene Glycol 3350 [Miralax 17 gm PO QDAY PRN #30 powd.pack 05/14/18 Unknown Rx 3350] Exam - Physical Exam Narrative exam: General Apperance: The patient lying in bed, breathing comfortable HEENT: Normocephalic, atraumatic. Pupils equally round and reactive to light, EOMI, no sclericterus or JVD or thyromegaly or nodule. , no carotid bruit, mucous membranes moist, no exudate or erythema Heart: S1-S2, regular is rhythm Lungs: Clear to auscultation bilaterally, breathing comfortable Abdomen: Positive bowel sounds, soft, nontender, nondistended, no organomegaly Extremities: No edema cyanosis clubbing Skin: no rash, nodule, warm and dry Neuro: cranial nerves 2-12 intact, speech is fluent, motor/sensory intact - Constitutional Vitals: Temp Pulse Resp BP Pulse Ox 97.8 F 95 H 25 H 150/57 100 05/21/18 19:00 05/21/18 22:16 05/21/18 21:30 05/21/18 22:16 05/21/18 22:16 Results - Labs CBC & Chem 7: 05/22/18 05:35 05/22/18 05:35 Labs: Abnormal lab results 05/21/18 05/21/18 05/21/18 Range/Units 17:23 17:23 17:23 WBC 11.5 H (4.5-11.0) K/mm3 RDW 17.7 H (13.2-15.2) % Plt Count 520 H (140-440) K/mm3 Lymph % (Auto) 8.6 L (13.4-35.0) % Lymph # 1.0 L (1.2-5.4) K/mm3 Seg Neutrophils % 86.0 H (40.0-70.0) % Seg Neutrophils # 9.9 H (1.8-7.7) K/mm3 Carbon Dioxide 20 L (22-30) mmol/L Glucose 129 H (65-100) mg/dL Ammonia 20.0 L (25-60) umol/L Total Creatine Kinase 699 H (30-135) units/L Troponin T 0.152 H* (0.00-0.029) ng/mL Albumin 3.7 L (3.9-5) g/dL Triglycerides 154 H (2-149) mg/dL Cholesterol 235 H (50-199) mg/dL LDL Cholesterol Direct 162 H (50-130) mg/dL Salicylates (2.8-20.0) mg/dL Acetaminophen (10.0-30.0) ug/mL 05/21/18 05/21/18 05/21/18 Range/Units 17:23 17:23 19:45 WBC (4.5-11.0) K/mm3 RDW (13.2-15.2) % Plt Count (140-440) K/mm3 Lymph % (Auto) (13.4-35.0) % Lymph # (1.2-5.4) K/mm3 Seg Neutrophils % (40.0-70.0) % Seg Neutrophils # (1.8-7.7) K/mm3 Carbon Dioxide (22-30) mmol/L Glucose (65-100) mg/dL Ammonia (25-60) umol/L Total Creatine Kinase (30-135) units/L Troponin T 0.089 H D (0.00-0.029) ng/mL Albumin (3.9-5) g/dL Triglycerides (2-149) mg/dL Cholesterol (50-199) mg/dL LDL Cholesterol Direct (50-130) mg/dL Salicylates < 0.3 L (2.8-20.0) mg/dL Acetaminophen < 5.0 L (10.0-30.0) ug/mL Assessment and Plan Assessment Failure to thrive in an adult Abdominal pain Rhabdomyolysis Abnormal cardiac enzymes hypertension, diabetes chronic kidney disease, COPD bipolar CVA Recrent GI bleed, duodenal ulcer Plan Admit to medicine check CAT scan of the abdomen and pelvis Start IV fluids, monitor CK, check cardiac enzymes Cardiology was consulted since the patient Check fingersticks, DVT prophylaxis
--- NOTE | 2018-05-21 23:47 | Cat Scan Report ---
PROCEDURE: CT ABDOMEN PELVIS WO CON TECHNIQUE: Computerized axial tomography of the abdomen and pelvis was performed without intravenous contrast. This study is performed without intravascular contrast material and its sensitivity for ab dominal and pelvic pathology, including neoplasms, inflammation, abscess, free fluid, thrombosis, art erial dissection and infarction, is reduced compared with a contrast enhanced study. CT DOSE LENGTH PRODUCT: mGycm HISTORY: abd pain COMPARISONS: None . FINDINGS: Liver, spleen, pancreas and bilateral kidneys demonstrate normal density. There are no renal calculi or hydronephrosis. Right adrenal demonstrates a hypodense nodule measuring 1.4 cm. Left adrenal demon strates 2 hypodense nodules measuring 1.2 cm. Urinary bladder is partially distended with normal outl betsy. Small amount of air is noted in the urinary bladder. Aorta is of normal caliber. Bilateral neil c stents are noted. There is no free fluid or free air. Gallbladder is unremarkable. Small bowel loop s are within normal limits. There is moderate degree of residual stool. Appendix is not definitively visualized. There are no inflammatory changes in the right lower quadrant. Moderate degree of degener ative changes are noted involving the lumbar spine. Mild degree left compression deformities noted in volving L3 vertebral body. IMPRESSION: Small adrenal adenomas bilaterally. Moderate degree of residual stool Small amount of air is noted in the urinary bladder which is most likely secondary to the recent inte rvention. Otherwise cystitis cannot be excluded. Otherwise No acute intra-abdominal or pelvic pathology as visualized on this noncontrast study. This document is electronically signed by Horace Mcmillan MD., May 21 2018 11:45:42 PM ET
[2018-05-22] MEDS ORDERED: SODIUM CHLORIDE FLUSH SYRINGE 10 ML IV PRN (03:28)
[2018-05-22] MEDS ORDERED: ZOFRAN IV PRN (03:28)
[2018-05-22 06:06] LABS: Basophils # (Auto) 0.1 K/mm3 (0.0-0.1); Basophils % (Auto) 0.7 % (0.0-1.8); Eosinophils # (Auto) 0.2 K/mm3 (0.0-0.4); Eosinophils % (Auto) 1.7 % (0.0-4.3); Hematocrit 28.8 % (30.3-42.9); Hemoglobin 9.5 gm/dl (10.1-14.3); Lymphocytes # (Auto) 1.3 K/mm3 (1.2-5.4); Mean Corpuscular HGB Conc 33 % (30-34); Mean Corpuscular Volume 92 fl (79-97); Monocytes # (Auto) 0.8 K/mm3 (0.0-0.8); Monocytes % (Auto) 8.1 % (0.0-7.3); Platelet Count 426 K/mm3 (140-440); Red Blood Count 3.13 M/mm3 (3.65-5.03); Red Cell Distribution Width 17.6 % (13.2-15.2)
[2018-05-22 06:25] LABS: BUN/Creatinine Ratio 16; Blood Urea Nitrogen 13 mg/dL (7-17); Calcium 8.1 mg/dL (8.4-10.2); Hemolysis Index 13
[2018-05-22] MEDS ORDERED: APRESOLINE IV PRN (09:21)
[2018-05-22] MEDS ORDERED: LOVENOX SUB-Q SCH (10:00)
[2018-05-22] MEDS ORDERED: ULTRAM PO PRN (10:08)
[2018-05-22] MEDS ORDERED: MIRALAX 3350 PO PRN (10:08)
[2018-05-22] MEDS ORDERED: PROVENTIL IH PRN (10:22)
[2018-05-22] MEDS ORDERED: NORVASC PO SCH (11:00)
[2018-05-22] MEDS: LOVENOX SUB-Q SCH (11:40)
[2018-05-22] MEDS: PROTONIX PO SCH ×2 (11:40→21:11)
[2018-05-22] MEDS: SODIUM CHLORIDE FLUSH SYRINGE 10 ML IV SCH ×2 (11:40→21:12)
--- NOTE | 2018-05-22 11:45 | Consultation ---
History of Present Illness Consult date: 05/22/18 Requesting physician: YUVAL DEL ANGEL Consult reason: elevated troponin History of present illness: The history was obtained from a review of her medical chart. The patient reportedly lives alone. She was brought to the hospital by the EMS after her neighbors found her on the floor, confused with feces all over. Currently, she does not recall any of those events. She denies chest pain, dyspnea, palpitations, or dizziness. Her Troponin level is elevated. However, this has been a chronic occurence with her on previous admissions. Notably, she underwent stress testing which was negative for ischemia on 05/13/2018. Echocardiogram on 05/28/2018 revealed an ejection fraction of 55-60%. Past History Past Medical History: COPD, diabetes, hypertension, stroke, other (Bipolar DO, DU, GI bleed) Past Surgical History: Other (unknown) Social history: other (unknown) Family history: other (details unknown) Medications and Allergies Allergies Allergy/AdvReac Type Severity Reaction Status Date / Time Sulfa (Sulfonamide Allergy Rash Verified 05/09/18 17:10 Antibiotics) Home Medications Medication Instructions Recorded Confirmed Last Taken Type Gabapentin [Neurontin] 400 mg PO Q8HR 02/21/18 05/10/18 Unknown History amLODIPine [Norvasc] 10 mg PO DAILY 02/21/18 05/10/18 Unknown History traMADol [Ultram 50 MG tab] 50 mg PO Q8H PRN 02/21/18 05/10/18 Unknown History Diazepam [Valium] 10 mg PO BID 05/10/18 05/10/18 Unknown History Ipratropium/Albuter (Nf) 3 mcg IH TID 05/10/18 05/10/18 Unknown History [Combivent Inhaler] Lisinopril [Zestril] 20 mg PO DAILY 05/10/18 05/10/18 Unknown History QUEtiapine [SEROquel] 100 mg PO HS 05/10/18 05/10/18 Unknown History metFORMIN 500 mg PO DAILY 05/10/18 05/10/18 Unknown History Pantoprazole [Protonix TAB] 40 mg PO BID #60 tablet 05/14/18 Unknown Rx Polyethylene Glycol 3350 [Miralax 17 gm PO QDAY PRN #30 powd.pack 05/14/18 Unknown Rx 3350] Active Meds: Active Medications Acetaminophen (Tylenol) 650 mg PO Q4H PRN PRN Reason: Pain MILD(1-3)/Fever >100.5/[place] Albuterol (Proventil) 2.5 mg IH Q3HRT PRN PRN Reason: Shortness Of Breath Albuterol/Ipratropium (Duoneb *Not For Prn Use*) 1 ampul IH Q6HRT [facility] Amlodipine Besylate (Norvasc) 10 mg PO DAILY [facility] Enoxaparin Sodium (Lovenox) 40 mg SUB-Q QDAY@1000 [facility] Gabapentin (Neurontin) 400 mg PO Q8HR [facility] Hydralazine HCl (Apresoline) 10 mg IV Q4H PRN PRN Reason: Hypertension Sodium Chloride (Nacl 0.9% 1000 Ml) 1,000 mls @ 125 mls/hr IV DIRECT [facility] Ondansetron HCl (Zofran) 4 mg IV Q8H PRN PRN Reason: Nausea And Vomiting Pantoprazole Sodium (Protonix) 40 mg PO BID [facility] Polyethylene Glycol (Miralax 3350) 17 gm PO QDAY PRN PRN Reason: Constipation Quetiapine Fumarate (Seroquel) 100 mg PO HS [facility] Sodium Chloride (Sodium Chloride Flush Syringe 10 Ml) 10 ml IV BID [facility] Sodium Chloride (Sodium Chloride Flush Syringe 10 Ml) 10 ml IV PRN PRN PRN Reason: LINE FLUSH Tramadol HCl (Ultram) 50 mg PO Q8H PRN PRN Reason: Pain Review of Systems Constitutional: no fever, no chills Ears, nose, mouth and throat: no ear pain, no ear discharge, no sore throat Cardiovascular: no chest pain, no palpitations, no edema, no lightheadedness Respiratory: no cough, no hemoptysis, no shortness of breath, no dyspnea on exertion Gastrointestinal: no abdominal pain, no nausea, no vomiting, no diarrhea, no c onstipation Genitourinary Female: no dysuria, no urinary frequency Rectal: no pain, no bleeding Musculoskeletal: no neck stiffness, no neck pain, no myalgias Integumentary: no rash, no pruritis Neurological: no weakness, no parathesias, no headaches Endocrine: no cold intolerance, no heat intolerance Hematologic/Lymphatic: no easy bruising, no easy bleeding Allergic/Immunologic: no urticaria, no angioedema Physical Examination Vital Signs Last Vital Signs Temp 98.3 F 05/22/18 04:11 Pulse 95 H 05/22/18 11:43 Resp 20 05/22/18 04:11 BP 186/74 05/22/18 11:43 Pulse Ox 100 05/22/18 04:36 General appearance: no acute distress HEENT: Positive: EOMI, Normocephaly, Mucus Membranes Moist Neck: Positive: neck supple, trachea midline Cardiac: Positive: Reg Rate and Rhythm, S1/S2 Lungs: Positive: clear to auscultation Neuro: Positive: Grossly Intact Abdomen: Positive: Soft, Active Bowel Sounds. Negative: Tender Skin: Positive: Clear. Negative: Rash Musculoskeletal: Normal Range of Motion Extremities: Present: normal. Absent: edema Results 05/22/18 05:35 05/22/18 05:35 Cardiac Enzymes 05/21/18 Range/Units 17:23 AST 24 (5-40) units/L Coagulation 05/21/18 Range/Units 17:23 PT 14.7 (12.2-14.9) Sec. INR 1.08 (0.87-1.13) APTT 32.4 (24.2-36.6) Sec. Lipids 05/21/18 Range/Units 17:23 Triglycerides 154 H (2-149) mg/dL Cholesterol 235 H (50-199) mg/dL HDL Cholesterol 47 (40-59) mg/dL Cholesterol/HDL Ratio 5.00 % CBC 05/21/18 05/22/18 Range/Units 17:23 05:35 WBC 11.5 H 9.6 (4.5-11.0) K/mm3 RBC 3.89 3.13 L (3.65-5.03) M/mm3 Hgb 11.6 9.5 L (10.1-14.3) gm/dl Hct 35.7 28.8 L D (30.3-42.9) % Plt Count 520 H 426 (140-440) K/mm3 Lymph # 1.0 L 1.3 (1.2-5.4) K/mm3 Mcleod # 0.5 0.8 (0.0-0.8) K/mm3 Eos # 0.0 0.2 (0.0-0.4) K/mm3 Baso # 0.1 0.1 (0.0-0.1) K/mm3 Comprehensive Metabolic Panel 05/21/18 05/22/18 Range/Units 17:23 05:35 Sodium 143 148 H (137-145) mmol/L Potassium 4.7 4.1 (3.6-5.0) mmol/L Chloride 105.5 114.2 H (98-107) mmol/L Carbon Dioxide 20 L 16 L (22-30) mmol/L BUN 16 13 (7-17) mg/dL Creatinine 1.0 0.8 (0.7-1.2) mg/dL Glucose 129 H 93 (65-100) mg/dL Calcium 9.3 8.1 L (8.4-10.2) mg/dL Direct Bilirubin < 0.2 (0-0.2) mg/dL Indirect Bilirubin 0.1 mg/dL AST 24 (5-40) units/L ALT 16 (7-56) units/L Alkaline Phosphatase 97 (35-129) units/L Total Protein 7.4 (6.3-8.2) g/dL Albumin 3.7 L (3.9-5) g/dL - Imaging and Cardiology EKG: image reviewed EKG interpretations - Telemetry EKG Rhythm: Sinus Tachycardia - EKG Sinus rhythms and dysrhythmias: sinus tachycardia Assessment and Plan With chronically elevated troponin levels and recent negative stress test, she will not require any further cardiac testing. Optimize antihypertensive regimen. - Patient Problems (1) Altered mental status Current Visit: Yes Status: Acute (2) Elevated troponin Current Visit: Yes Status: Chronic (3) Uncontrolled hypertension Current Visit: Yes Status: Acute (4) Rhabdomyolysis Current Visit: Yes Status: Acute (5) COPD (chronic obstructive pulmonary disease) Current Visit: Yes Status: Chronic (6) Anemia Current Visit: Yes Status: Chronic Qualifiers: Anemia type: other cause Other causes of anemia: other cause, not classified Qualified Code(s): D64.89 - Other specified anemias (7) IDDM (insulin dependent diabetes mellitus) Current Visit: Yes Status: Chronic (8) Bipolar disorder Current Visit: Yes Status: Chronic (9) H/O: GI bleed Current Visit: Yes Status: Chronic
[2018-05-22] MEDS ORDERED: ALBUTEROL IH SCH (14:00)
[2018-05-22] MEDS ORDERED: IPRATROPIUM IH SCH (14:00)
[2018-05-22] MEDS: CARDIZEM PO SCH ×2 (14:19→17:16)
[2018-05-22] MEDS: NEURONTIN PO SCH ×2 (14:19→21:11)
[2018-05-22] MEDS: ZESTRIL PO SCH ×2 (14:20→21:11)
[2018-05-22] MEDS: DUONEB *Not for PRN Use IH SCH ×2 (14:30→21:59)
--- NOTE | 2018-05-22 15:08 | Progress Note ---
Assessment and Plan - Patient Problems (1) Altered mental status Current Visit: Yes Status: Acute Qualifiers: Altered mental status type: disorientation Qualified Code(s): R41.0 - Disorientation, unspecified Plan to address problem: UDS showed benzo and patient was taking diazepam hold benzo and monitor the patient patient can protect airways and she passed bedside swallow evlauation (2) NSTEMI (non-ST elevated myocardial infarction) Current Visit: Yes Status: Acute Plan to address problem: Cardiology consultedand will follow their recommendations (3) Uncontrolled hypertension Current Visit: Yes Status: Acute Plan to address problem: resume home medications and follow BP and adjust as needed (4) Bipolar disorder Current Visit: Yes Status: Chronic Plan to address problem: Continue home medication (5) COPD (chronic obstructive pulmonary disease) Current Visit: Yes Status: Chronic Plan to address problem: Nebulizer treatment, DuoNeb and continue appropriate home medication (6) H/O: GI bleed Current Visit: Yes Status: Chronic Plan to address problem: Currently no bleeding H&H stable (7) IDDM (insulin dependent diabetes mellitus) Current Visit: Yes Status: Chronic Plan to address problem: Sliding scale insulin, accucheck, ADA diet. Adjust insulin as needed History Interval history: Patient was seen and evaluated this morning, patient was confused and was not able to give any meaningful history. Hospitalist Physical - Physical exam Narrative exam: Not in cardiopulmonary distress. The patient appeared well nourished and normally developed. Vital signs as documented. Head exam is unremarkable. No scleral icterus . Neck is without jugular venous distension, thyromegaly, or carotid bruits. Lungs are clear to auscultation. Cardiac exam reveals regular rate and Rhythm. First and second heart sounds normal. No murmurs, rubs or gallops. Abdominal exam reveals normal bowel sounds, no masses, no organomegaly and no aortic enlargement. Extremities are nonedematous and both femoral and pedal pulses are normal. WEIGHER PACKING: patient was confused. - Constitutional Vitals: Temp Pulse Resp BP Pulse Ox 98.3 F 110 H 18 186/74 98 05/22/18 04:11 05/22/18 14:42 05/22/18 14:42 05/22/18 14:20 05/22/18 14:33 General appearance: Present: no acute distress Results - Labs CBC & Chem 7: 05/22/18 05:35 05/22/18 05:35 Labs: Laboratory Last Values WBC 9.6 K/mm3 (4.5-11.0) 05/22/18 05:35 RBC 3.13 M/mm3 (3.65-5.03) L 05/22/18 05:35 Hgb 9.5 gm/dl (10.1-14.3) L 05/22/18 05:35 Hct 28.8 % (30.3-42.9) L D 05/22/18 05:35 MCV 92 fl (79-97) 05/22/18 05:35 MCH 30 pg (28-32) 05/22/18 05:35 MCHC 33 % (30-34) 05/22/18 05:35 RDW 17.6 % (13.2-15.2) H 05/22/18 05:35 Plt Count 426 K/mm3 (140-440) 05/22/18 05:35 Lymph % (Auto) 14.0 % (13.4-35.0) 05/22/18 05:35 [place] % (Auto) 8.1 % (0.0-7.3) H 05/22/18 05:35 Eos % (Auto) 1.7 % (0.0-4.3) 05/22/18 05:35 Baso % (Auto) 0.7 % (0.0-1.8) 05/22/18 05:35 Lymph # 1.3 K/mm3 (1.2-5.4) 05/22/18 05:35 [place] # 0.8 K/mm3 (0.0-0.8) 05/22/18 05:35 Eos # 0.2 K/mm3 (0.0-0.4) 05/22/18 05:35 Baso # 0.1 K/mm3 (0.0-0.1) 05/22/18 05:35 Seg Neutrophils % 75.5 % (40.0-70.0) H 05/22/18 05:35 Seg Neutrophils # 7.2 K/mm3 (1.8-7.7) 05/22/18 05:35 PT 14.7 Sec. (12.2-14.9) 05/21/18 17:23 INR 1.08 (0.87-1.13) 05/21/18 17:23 APTT 32.4 Sec. (24.2-36.6) 05/21/18 17:23 Sodium 148 mmol/L (137-145) H 05/22/18 05:35 Potassium 4.1 mmol/L (3.6-5.0) 05/22/18 05:35 Chloride 114.2 mmol/L (98-107) H 05/22/18 05:35 Carbon Dioxide 16 mmol/L (22-30) L 05/22/18 05:35 Anion Gap 22 mmol/L 05/22/18 05:35 BUN 13 mg/dL (7-17) 05/22/18 05:35 Creatinine 0.8 mg/dL (0.7-1.2) 05/22/18 05:35 Estimated GFR > 60 ml/min 05/22/18 05:35 BUN/Creatinine Ratio 16 % 05/22/18 05:35 Glucose 93 mg/dL (65-100) 05/22/18 05:35 POC Glucose 131 (70-105) H 05/22/18 12:50 Lactic Acid 1.10 mmol/L (0.7-2.0) 05/21/18 17:23 Calcium 8.1 mg/dL (8.4-10.2) L 05/22/18 05:35 Total Bilirubin 0.30 mg/dL (0.1-1.2) 05/21/18 17:23 Direct Bilirubin < 0.2 mg/dL (0-0.2) 05/21/18 17:23 Indirect Bilirubin 0.1 mg/dL 05/21/18 17:23 AST 24 units/L (5-40) 05/21/18 17:23 ALT 16 units/L (7-56) 05/21/18 17:23 Alkaline Phosphatase 97 units/L (35-129) 05/21/18 17:23 Ammonia 20.0 umol/L (25-60) L 05/21/18 17:23 Total Creatine Kinase 699 units/L (30-135) H 05/21/18 17:23 Troponin T 0.089 ng/mL (0.00-0.029) H D 05/21/18 19:45 Total Protein 7.4 g/dL (6.3-8.2) 05/21/18 17:23 Albumin 3.7 g/dL (3.9-5) L 05/21/18 17:23 Albumin/Globulin Ratio 1.0 % 05/21/18 17:23 Triglycerides 154 mg/dL (2-149) H 05/21/18 17:23 Cholesterol 235 mg/dL (50-199) H 05/21/18 17:23 LDL Cholesterol Direct 162 mg/dL (50-130) H 05/21/18 17: HDL Cholesterol 47 mg/dL (40-59) 05/21/18 17: Cholesterol/HDL Ratio 5.00 % 05/21/18 17:23 Urine Color Yellow (Yellow) 05/21/18 22:13 Urine Turbidity Clear (Clear) 05/21/18 22:13 Urine pH 5.0 (5.0-7.0) 05/21/18 22:13 Ur Specific [place] 1.011 (1.003-1.030) 05/21/18 22:13 Urine Protein >500 mg/dL (Negative) 05/21/18 22:13 Urine Glucose (UA) Neg mg/dL (Negative) 05/21/18 22:13 Urine Ketones 80 mg/dL (Negative) 05/21/18 22:13 Urine Blood Neg (Negative) 05/21/18 22:13 Urine Nitrite Neg (Negative) 05/21/18 22:13 Urine Bilirubin Neg (Negative) 05/21/18 22:13 Urine Urobilinogen < 2.0 mg/dL (<2.0) 05/21/18 22:13 Ur Leukocyte Esterase Neg (Negative) 05/21/18 22:13 Urine WBC (Auto) 3.0 /HPF (0.0-6.0) 05/21/18 22:13 Urine RBC (Auto) 1.0 /HPF (0.0-6.0) 05/21/18 22:13 Urine Bacteria (Auto) 2+ /HPF (Negative) 05/21/18 22:13 Urine Mucus Few /HPF 05/21/18 22:13 Urine Yeast (Budding) 2+ /HPF 05/21/18 22:13 Salicylates < 0.3 mg/dL (2.8-20.0) L 05/21/18 17:23 Urine Opiates Screen Presumptive negative 05/21/18 22:13 Urine Methadone Screen Presumptive negative 03/13/19 22:13 Acetaminophen < 5.0 ug/mL (10.0-30.0) L 05/21/18 17:23 Ur Barbiturates Screen Presumptive negative 05/21/18 22:13 Ur Phencyclidine Scrn Presumptive negative 05/21/18 22:13 Ur Amphetamines Screen Presumptive negative 05/21/18 22:13 U Benzodiazepines Scrn Presumptive positive 05/21/18 22:13 Urine Cocaine Screen Presumptive negative 05/21/18 22:13 U Marijuana (THC) Screen Presumptive negative 05/21/18 22:13 Drugs of Abuse Note Disclamer 05/21/18 22:13 Plasma/Serum Alcohol < 0.01 % (0-0.07) 05/21/18 17:23 Nutrition/Malnutrition Assess - Dietary Evaluation Nutrition/Malnutrition Findings: Nutrition Notes Start: 05/22/18 13:32 Freq: Status: Active Protocol: Document 05/22/18 13:32 TW (Rec: 05/22/18 13:40 TW [email or web address]) Co-Sign 05/22/18 13:32 LP Nutrition Notes Need for Assessment 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 Marco Score: 17. Pt stated she is eating most of her meals and her appetite is well . Pt denied wt loss and N/V/D. Observed breakfast tray mostly eaten. Burn Absent Trauma Absent Nutrition Intervention Revisit per MD consult or patient Sign Off request:
[2018-05-22] MEDS: NACL 0.9% 1000 ML 1,000 ML IV SCH (21:11)
[2018-05-23] MEDS: CARDIZEM PO SCH ×5 (00:10→23:31)
[2018-05-23] MEDS: TYLENOL PO PRN (00:11)
[2018-05-23] MEDS: DUONEB *Not for PRN Use IH SCH ×5 (02:27→20:06)
[2018-05-23] MEDS: NEURONTIN PO SCH ×3 (05:43→21:37)
[2018-05-23 08:30] LABS: Basophils # (Auto) 0.1 K/mm3 (0.0-0.1); Basophils % (Auto) 0.9 % (0.0-1.8); Eosinophils # (Auto) 0.1 K/mm3 (0.0-0.4); Eosinophils % (Auto) 2.7 % (0.0-4.3); Hematocrit 24.7 % (30.3-42.9); Hemoglobin 8.4 gm/dl (10.1-14.3); Lymphocytes # (Auto) 1.8 K/mm3 (1.2-5.4); Lymphocytes % (Auto) 33.1 % (13.4-35.0); Mean Corpuscular HGB Conc 34 % (30-34); Mean Corpuscular Volume 91 fl (79-97); Monocytes # (Auto) 0.5 K/mm3 (0.0-0.8); Monocytes % (Auto) 9.1 % (0.0-7.3); Platelet Count 304 K/mm3 (140-440); Red Blood Count 2.73 M/mm3 (3.65-5.03); Red Cell Distribution Width 17.6 % (13.2-15.2)
[2018-05-23 08:45] LABS: BUN/Creatinine Ratio 10; Blood Urea Nitrogen 9 mg/dL (7-17); Calcium 7.7 mg/dL (8.4-10.2); Hemolysis Index 6
[2018-05-23] MEDS: NACL 0.9% 1000 ML 1,000 ML IV SCH ×2 (09:24→23:31)
[2018-05-23] MEDS: SODIUM CHLORIDE FLUSH SYRINGE 10 ML IV SCH ×2 (10:00→21:41)
[2018-05-23] MEDS ORDERED: K-DUR PO NR (10:48)
--- NOTE | 2018-05-23 11:19 | Gastroenterology Consultation ---
History of Present Illness - Reason for Consult Consult date: 05/23/18 anemia Requesting physician: BEATA LOPEZ - History of Present Illness Patient is a 67 y/o female with PMH of HTN, DM, CKD, COPD, bipolar, storke (TIA), who was brought to ED for AMS after being found on the floor by her neighbors. GI has been consulted for anemia. Patient is previously known to our service. She a hx of GI bleeding 2/2 a large duodenal ulcer found on EGD in March of this year with reoccurring bleeding earlier this month requiring a repeat EGD with epi injection/clip placement on 05/10/2018. This morning patient was resting in bed w/o acute distress but noted to be somnolent but oriented to person, place, and time. No active signs of bleeding this am per nursing. Patient c/o left side pain that radiates to her back and admits to dark stool yesterday but denies fever, CP, SOB, abd pain, N/V, hematemesis, diarrhea, constipation, or hematochezia. Tolerating diet (ate breakfast w/o difficulty). No NSAID use. She is unsure if she has been taking her PPI at home. Has a remote hx of alcohol abuse but no hx of liver disease. Past History Past Medical History: other (as per HPI) Past Surgical History: Other (Amputated 3rd toe left foot; breast surgery (cyst)) Social history: other (former smoker; remote hx of ETOH abuse) Family history: other (details unknown) Medications and Allergies Allergies Allergy/AdvReac Type Severity Reaction Status Date / Time Sulfa (Sulfonamide Allergy Rash Verified 05/09/18 17:10 Antibiotics) Home Medications Medication Instructions Recorded Confirmed Last Taken Type Gabapentin [Neurontin] 400 mg PO Q8HR 02/21/18 05/10/18 Unknown History amLODIPine [Norvasc] 10 mg PO DAILY 02/21/18 05/10/18 Unknown History traMADol [Ultram 50 MG tab] 50 mg PO Q8H PRN 02/21/18 05/10/18 Unknown History Diazepam [Valium] 10 mg PO BID 05/10/18 05/10/18 Unknown History Ipratropium/Albuter (Nf) 3 mcg IH TID 05/10/18 05/10/18 Unknown History [Combivent Inhaler] Lisinopril [Zestril] 20 mg PO DAILY 05/10/18 05/10/18 Unknown History QUEtiapine [SEROquel] 100 mg PO HS 05/10/18 05/10/18 Unknown History metFORMIN 500 mg PO DAILY 05/10/18 05/10/18 Unknown History Pantoprazole [Protonix TAB] 40 mg PO BID #60 tablet 05/14/18 Unknown Rx Polyethylene Glycol 3350 [Miralax 17 gm PO QDAY PRN #30 powd.pack 05/14/18 Unknown Rx 3350] Active Meds: Active Medications Acetaminophen (Tylenol) 650 mg PO Q4H PRN PRN Reason: Pain MILD(1-3)/Fever >100.5/[place] Last Admin: 05/23/18 00:11 Dose: 650 mg Documented by: Albuterol (Proventil) 2.5 mg IH Q3HRT PRN PRN Reason: Shortness Of Breath Albuterol/Ipratropium (Duoneb *Not For Prn Use*) 1 ampul IH Q6HRT [facility] Last Admin: 05/23/18 07:26 Dose: 1 ampul Documented by: Diltiazem HCl (Cardizem) 60 mg PO Q6HR [facility] Last Admin: 05/23/18 05:43 Dose: 60 mg Documented by: Enoxaparin Sodium (Lovenox) 40 mg SUB-Q QDAY@1000 LUDA Last Admin: 05/22/18 11:40 Dose: 40 mg Documented by: Gabapentin (Neurontin) 400 mg PO Q8HR [facility] Last Admin: 05/23/18 05:43 Dose: 400 mg Documented by: Hydralazine HCl (Apresoline) 10 mg IV Q4H PRN PRN Reason: Hypertension Last Admin: 05/22/18 11:41 Dose: 10 mg Documented by: Sodium Chloride (Nacl 0.9% 1000 Ml) 1,000 mls @ 125 mls/hr IV DIRECT [facility] Last Admin: 05/23/18 09:24 Dose: 125 mls/hr Documented by: Lisinopril (Zestril) 20 mg PO BID [facility] Last Admin: 05/22/18 21:11 Dose: 20 mg Documented by: Ondansetron HCl (Zofran) 4 mg IV Q8H PRN PRN Reason: Nausea And Vomiting Pantoprazole Sodium (Protonix) 40 mg PO BID [facility] Last Admin: 05/22/18 21:11 Dose: 40 mg Documented by: Polyethylene Glycol (Miralax 3350) 17 gm PO QDAY PRN PRN Reason: Constipation Potassium Chloride (K-Dur) 40 meq PO ONCE NR Stop: 05/23/18 13:00 Quetiapine Fumarate (Seroquel) 100 mg PO QHS [facility] Last Admin: 05/22/18 21:11 Dose: 100 mg Documented by: Sodium Chloride (Sodium Chloride Flush Syringe 10 Ml) 10 ml IV BID [facility] Last Admin: 05/22/18 21:12 Dose: 10 ml Documented by: Sodium Chloride (Sodium Chloride Flush Syringe 10 Ml) 10 ml IV PRN PRN PRN Reason: LINE FLUSH medications reviewed/updated as required Review of Systems - Review of Systems All systems: negative Gastrointestinal: other (dark stool), no abdominal pain, no nausea, no vomiting, no hematemesis, no hematochezia Exam - Constitutional Vital Signs: Temp Pulse Resp BP Pulse Ox 98.5 F 81 18 134/32 97 05/23/18 11:12 05/23/18 11:03 05/23/18 11:06 05/23/18 11:06 05/23/18 11:03 General appearance: no acute distress, other (somnolent) - Respiratory Respiratory: bilateral: diminished - Cardiovascular Rhythm: regular - Gastrointestinal General gastrointestinal: Present: soft, non-tender, non-distended, normal bowel sounds Rectal Exam: other (dark brown stool (automatic mounter present during exam-Tamela DURAN)) - Labs CBC & Chem 7: 05/23/18 08:13 05/23/18 08:13 Lab Results: Laboratory Results - last 24 hr 05/22/18 05/22/18 05/23/18 12:50 16:21 08:13 WBC 5.5 RBC 2.73 L Hgb 8.4 L Hct 24.7 L MCV 91 MCH 31 MCHC 34 RDW 17.6 H Plt Count 304 Lymph % (Auto) 33.1 [place] % (Auto) 9.1 H Eos % (Auto) 2.7 Baso % (Auto) 0.9 Lymph # 1.8 [place] # 0.5 Eos # 0.1 Baso # 0.1 Seg Neutrophils % 54.2 Seg Neutrophils # 3.0 Sodium Potassium Chloride Carbon Dioxide Anion Gap BUN Creatinine Estimated GFR BUN/Creatinine Ratio Glucose POC Glucose 131 H 184 H Calcium 05/23/18 05/23/18 08:13 08:30 WBC RBC Hgb Hct MCV MCH MCHC RDW Plt Count Lymph % (Auto) [place] % (Auto) Eos % (Auto) Baso % (Auto) Lymph # [place] # Eos # Baso # Seg Neutrophils % Seg Neutrophils # Sodium 141 Potassium 3.1 L D Chloride 110.4 H Carbon Dioxide 19 L Anion Gap 15 BUN 9 Creatinine 0.9 Estimated GFR > 60 BUN/Creatinine Ratio 10 Glucose 116 H POC Glucose 118 H Calcium 7.7 L Assessment and Plan 1.anemia 2.H/o recent GI bleed 2/2 duodenal ulcer -BUN WNL (9) -H/H 8.4/24.7-trended down since last discharge -continue to monitor H/H and transfuse as needed -hold blood thinning medications -no active signs of bleeding this am per pt/nursing - rectal revealed dark brown stool (no hematemesis or hematochezia) -s/p EGD 03/30/18 and 05/10/2018 that showed a large duodenal bulb ulcer with visible vessel (s/p epi injection and clips x 2 placed) -bx results negative for H.pylori or malignancy -etiology-most likely 2/2 known duodenal ulcer -no plans for repeat endoscopy at this time, unless overt bleeding develops -continue high dose PPI -start on carafate -avoid NSAIDs -continue supportive care -will follow
[2018-05-23] MEDS: PROTONIX PO SCH ×2 (11:23→21:40)
[2018-05-23] MEDS: LOVENOX SUB-Q SCH (12:20)
[2018-05-23] MEDS: ZESTRIL PO SCH ×2 (12:21→21:41)
--- NOTE | 2018-05-23 12:25 | Progress Note ---
Assessment and Plan Stable cardiac status. We'll see when necessary. - Patient Problems (1) Altered mental status Current Visit: Yes Status: Resolved Qualifiers: Altered mental status type: disorientation Qualified Code(s): R41.0 - Disorientation, unspecified (2) Elevated troponin Current Visit: Yes Status: Chronic (3) Uncontrolled hypertension Current Visit: Yes Status: Resolved (4) Rhabdomyolysis Current Visit: Yes Status: Acute (5) COPD (chronic obstructive pulmonary disease) Current Visit: Yes Status: Chronic (6) Anemia Current Visit: Yes Status: Acute Qualifiers: Anemia type: other cause Other causes of anemia: other cause, not classified Qualified Code(s): D64.89 - Other specified anemias (7) Duodenal ulcer Current Visit: Yes Status: Chronic (8) H/O: GI bleed Current Visit: Yes Status: Chronic (9) IDDM (insulin dependent diabetes mellitus) Current Visit: Yes Status: Chronic (10) Bipolar disorder Current Visit: Yes Status: Chronic Subjective Date of service: 05/23/18 Principal diagnosis: Altered mental status, Chronic elevated Tn, Uncontrolled HTN Interval history: No complaint. Her BP control is much better. Objective Vital Signs Last Vital Signs Temp 98.5 F 05/23/18 11:12 Pulse 81 05/23/18 12:22 Resp 18 05/23/18 11:06 BP 126/35 05/23/18 12:22 Pulse Ox 97 05/23/18 11:03 - Physical Examination General: No Apparent Distress HEENT: Positive: EOMI, Normocephaly, Mucus Membranes Moist Neck: Positive: neck supple, trachea midline Cardiac: Positive: Reg Rate and Rhythm, S1/S2 Lungs: Positive: clear to auscultation Neuro: Positive: Grossly Intact Abdomen: Positive: Soft, Active Bowel Sounds. Negative: Tender Skin: Positive: Clear. Negative: Rash Musculoskeletal: Normal Range of Motion Extremities: Present: normal. Absent: edema - Labs and Meds CBC 05/23/18 Range/Units 08:13 WBC 5.5 (4.5-11.0) K/mm3 RBC 2.73 L (3.65-5.03) M/mm3 Hgb 8.4 L (10.1-14.3) gm/dl Hct 24.7 L (30.3-42.9) % Plt Count 304 (140-440) K/mm3 Lymph # 1.8 (1.2-5.4) K/mm3 [place] # 0.5 (0.0-0.8) K/mm3 Eos # 0.1 (0.0-0.4) K/mm3 Baso # 0.1 (0.0-0.1) K/mm3 Comprehensive Metabolic Panel 05/23/18 Range/Units 08:13 Sodium 141 (137-145) mmol/L Potassium 3.1 L D (3.6-5.0) mmol/L Chloride 110.4 H (98-107) mmol/L Carbon Dioxide 19 L (22-30) mmol/L BUN 9 (7-17) mg/dL Creatinine 0.9 (0.7-1.2) mg/dL Glucose 116 H (65-100) mg/dL Calcium 7.7 L (8.4-10.2) mg/dL - Imaging and Cardiology EKG: image reviewed - Telemetry EKG Rhythm: Sinus Rhythm
--- NOTE | 2018-05-23 16:52 | Progress Note ---
Assessment and Plan - Patient Problems (1) Altered mental status Current Visit: Yes Status: Resolved Qualifiers: Altered mental status type: disorientation Qualified Code(s): R41.0 - Disorientation, unspecified Plan to address problem: UDS showed benzo and patient was taking diazepam hold benzo and monitor the patient patient can protect airways and she passed bedside swallow evlauation Patient was alert and oriented his morning CT head was negative Neurology consulted (2) NSTEMI (non-ST elevated myocardial infarction) Current Visit: Yes Status: Acute Plan to address problem: Cardiology consulted and will follow their recommendations said no further cardiac workup (3) Uncontrolled hypertension Current Visit: Yes Status: Resolved Plan to address problem: resume home medications and follow BP and adjust as needed (4) Bipolar disorder Current Visit: Yes Status: Chronic Plan to address problem: Continue home medication (5) COPD (chronic obstructive pulmonary disease) Current Visit: Yes Status: Chronic (6) H/O: GI bleed Current Visit: Yes Status: Chronic Plan to address problem: Currently no bleeding Monitor H&H GI consulted and said had extensively worked up the patient last time and recommend no further work up. (7) IDDM (insulin dependent diabetes mellitus) Current Visit: Yes Status: Chronic History Interval history: Patient was seen and evaluated this morning, patient was was alert and oriented. Patient was complaining left-sided rib pain. Hospitalist Physical - Physical exam Narrative exam: Not in cardiopulmonary distress. The patient appeared well nourished and normally developed. Vital signs as documented. Head exam is unremarkable. No scleral icterus . Neck is without jugular venous distension, thyromegaly, or carotid bruits. Lungs are clear to auscultation. Cardiac exam reveals regular rate and Rhythm. First and second heart sounds normal. No murmurs, rubs or gallops. Abdominal exam reveals normal bowel sounds, no masses, no organomegaly and no aortic enlargement. Extremities are nonedematous and both femoral and pedal pulses are normal. 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 - Constitutional Vitals: Temp Pulse Resp BP Pulse Ox 98.5 F 81 18 126/35 97 05/23/18 11:12 05/23/18 12:22 05/23/18 11:06 05/23/18 12:22 05/23/18 11:03 General appearance: Present: no acute distress Results - Labs CBC & Chem 7: 05/23/18 08:13 05/23/18 08:13 Labs: Laboratory Last Values WBC 5.5 K/mm3 (4.5-11.0) 05/23/18 08:13 RBC 2.73 M/mm3 (3.65-5.03) L 05/23/18 08:13 Hgb 8.4 gm/dl (10.1-14.3) L 05/23/18 08:13 Hct 24.7 % (30.3-42.9) L 05/23/18 08:13 MCV 91 fl (79-97) 05/23/18 08:13 MCH 31 pg (28-32) 05/23/18 08:13 MCHC 34 % (30-34) 05/23/18 08:13 RDW 17.6 % (13.2-15.2) H 05/23/18 08:13 Plt Count 304 K/mm3 (140-440) 05/23/18 08:13 Lymph % (Auto) 33.1 % (13.4-35.0) 05/23/18 08:13 [place] % (Auto) 9.1 % (0.0-7.3) H 05/23/18 08:13 Eos % (Auto) 2.7 % (0.0-4.3) 05/23/18 08:13 Baso % (Auto) 0.9 % (0.0-1.8) 05/23/18 08:13 Lymph # 1.8 K/mm3 (1.2-5.4) 05/23/18 08:13 [place] # 0.5 K/mm3 (0.0-0.8) 05/23/18 08:13 Eos # 0.1 K/mm3 (0.0-0.4) 05/23/18 08:13 Baso # 0.1 K/mm3 (0.0-0.1) 05/23/18 08:13 Seg Neutrophils % 54.2 % (40.0-70.0) 05/23/18 08:13 Seg Neutrophils # 3.0 K/mm3 (1.8-7.7) 05/23/18 08:13 PT 14.7 Sec. (12.2-14.9) 05/21/18 17:23 INR 1.08 (0.87-1.13) 05/21/18 17:23 APTT 32.4 Sec. (24.2-36.6) 05/21/18 17:23 Sodium 141 mmol/L (137-145) 05/23/18 08:13 Potassium 3.1 mmol/L (3.6-5.0) L D 05/23/18 08:13 Chloride 110.4 mmol/L (98-107) H 05/23/18 08:13 Carbon Dioxide 19 mmol/L (22-30) L 05/23/18 08:13 Anion Gap 15 mmol/L 05/23/18 08:13 BUN 9 mg/dL (7-17) 05/23/18 08:13 Creatinine 0.9 mg/dL (0.7-1.2) 05/23/18 08:13 Estimated GFR > 60 ml/min 05/23/18 08:13 BUN/Creatinine Ratio 10 % 05/23/18 08:13 Glucose 116 mg/dL (65-100) H 05/23/18 08:13 POC Glucose 178 (70-105) H 05/23/18 12:00 Lactic Acid 1.10 mmol/L (0.7-2.0) 05/21/18 17:23 Calcium 7.7 mg/dL (8.4-10.2) L 05/23/18 08:13 Total Bilirubin 0.30 mg/dL (0.1-1.2) 05/21/18 17:23 Direct Bilirubin < 0.2 mg/dL (0-0.2) 05/21/18 17:23 Indirect Bilirubin 0.1 mg/dL 05/21/18 17:23 AST 24 units/L (5-40) 05/21/18 17:23 ALT 16 units/L (7-56) 05/21/18 17:23 Alkaline Phosphatase 97 units/L (35-129) 05/21/18 17:23 Ammonia 47.0 umol/L (25-60) 05/23/18 11:57 Total Creatine Kinase 699 units/L (30-135) H 05/21/18 17:23 Troponin T 0.089 ng/mL (0.00-0.029) H D 05/21/18 19:45 Total Protein 7.4 g/dL (6.3-8.2) 05/21/18 17: Albumin 3.7 g/dL (3.9-5) L 05/21/18 17: Albumin/Globulin Ratio 1.0 % 05/21/18 17: Triglycerides 154 mg/dL (2-149) H 05/21/18 17: Cholesterol 235 mg/dL (50-199) H 05/21/18 17:23 LDL Cholesterol Direct 162 mg/dL (50-130) H 05/21/18 17: HDL Cholesterol 47 mg/dL (40-59) 05/21/18 17: Cholesterol/HDL Ratio 5.00 % 05/21/18 17:23 Urine Color Yellow (Yellow) 05/21/18 22:13 Urine Turbidity Clear (Clear) 05/21/18 22:13 Urine pH 5.0 (5.0-7.0) 05/21/18 22:13 Ur Specific [place] 1.011 (1.003-1.030) 05/21/18 22:13 Urine Protein >500 mg/dL (Negative) 05/21/18 22:13 Urine Glucose (UA) Neg mg/dL (Negative) 05/21/18 22:13 Urine Ketones 80 mg/dL (Negative) 05/21/18 22:13 Urine Blood Neg (Negative) 05/21/18 22:13 Urine Nitrite Neg (Negative) 05/21/18 22:13 Urine Bilirubin Neg (Negative) 05/21/18 22:13 Urine Urobilinogen < 2.0 mg/dL (<2.0) 05/21/18 22:13 Ur Leukocyte Esterase Neg (Negative) 05/21/18 22:13 Urine WBC (Auto) 3.0 /HPF (0.0-6.0) 05/21/18 22:13 Urine RBC (Auto) 1.0 /HPF (0.0-6.0) 05/21/18 22:13 Urine Bacteria (Auto) 2+ /HPF (Negative) 05/21/18 22:13 Urine Mucus Few /HPF 05/21/18 22:13 Urine Yeast (Budding) 2+ /HPF 05/21/18 22:13 Salicylates < 0.3 mg/dL (2.8-20.0) L 05/21/18 17:23 Urine Opiates Screen Presumptive negative 05/21/18 22:13 Urine Methadone Screen Presumptive negative 05/21/18 22:13 Acetaminophen < 5.0 ug/mL (10.0-30.0) L 05/21/18 17:23 Ur Barbiturates Screen Presumptive negative 05/21/18 22:13 Ur Phencyclidine Scrn Presumptive negative 05/21/18 22:13 Ur Amphetamines Screen Presumptive negative 05/21/18 22:13 U Benzodiazepines Scrn Presumptive positive 05/21/18 22:13 Urine Cocaine Screen Presumptive negative 05/21/18 22:13 U Marijuana (THC) Screen Presumptive negative 05/21/18 22:13 Drugs of Abuse Note Disclamer 05/21/18 22:13 Plasma/Serum Alcohol < 0.01 % (0-0.07) 05/21/18 17:23 Nutrition/Malnutrition Assess - Dietary Evaluation Nutrition/Malnutrition Findings: Nutrition Notes Start: 05/22/18 13:32 Freq: Status: Active Protocol: Document 05/22/18 13:32 TW (Rec: 05/22/18 13:40 TW [email or web address]) Co-Sign 05/22/18 13:32 LP Nutrition Notes Need for Assessment generated from: ux research associate Initial or Follow up Brief Note Current Diagnosis Diabetes,Hypertension,Stroke Other Pertinent Diagnosis GI Bleed Current Diet Cardiac/ Consistent CHO Labs/Tests Na: 148 Pertinent Medications Lovenox Height 4 ft 11 in Weight 66.5 kg [place] Body Weight (kg) 43.18 BMI 29.6 Subjective/Other Information RN screen for Marco Score. Marco Score: 17. Pt stated she is eating most of her meals and her appetite is well . Pt denied wt loss and N/V/D. Observed breakfast tray mostly eaten. Burn Absent Trauma Absent Nutrition Intervention Revisit per MD consult or patient Sign Off request:
[2018-05-23] MEDS: CARAFATE PO SCH ×2 (17:41→21:37)
[2018-05-23] MEDS ORDERED: K-DUR PO ONE (18:51)
--- NOTE | 2018-05-23 21:38 | XRay Report ---
PROCEDURES: XR CHEST 1V AP TECHNIQUE: AP portable view of the chest. HISTORY: left sided rib pain COMPARISON: CXR 05/21/1989 FINDINGS: Lines, tubes, and devices: N/A Lungs and pleura: Trachea is normal in position. Lungs are clear of infiltrate, pleural effusion, vas cular congestion, or pneumothorax. No change. Cardiomediastinal silhouette: Cardiac and mediastinal silhouettes are unremarkable. 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 IMPRESSION: No acute cardiopulmonary process seen.No change. This document is electronically signed by Cecile Paredes MD., May 23 2018 09:36:34 PM ET
[2018-05-24] MEDS: DUONEB *Not for PRN Use IH SCH ×4 (03:10→21:28)
[2018-05-24] MEDS: NEURONTIN PO SCH ×3 (05:04→22:44)
[2018-05-24] MEDS: CARDIZEM PO SCH ×3 (05:04→18:54)
[2018-05-24] MEDS: NACL 0.9% 1000 ML 1,000 ML IV SCH ×2 (05:04→18:53)
[2018-05-24] MEDS: TYLENOL PO PRN (06:23)
[2018-05-24] MEDS: CARAFATE PO SCH ×4 (08:50→22:44)
[2018-05-24 10:11] LABS: Iron 12 ug/dL (37-170); Total Iron Binding Capacity 161 mcg/dL (250-450)
--- NOTE | 2018-05-24 10:33 | Discharge Summary ---
Providers - Providers Date of Admission: 05/21/18 23:35 Attending physician: BEATA LOPEZ MD 05/21/18 21:24 Consult to Physician [CONS] Stat Comment: Dr. Alvarez spoke with Dr. Hinton @ [id number] Consulting Provider: CASSI GARZA Physician Instructions: Reason For Exam: non-STEMI 05/23/18 10:45 Consult to Physician [CONS] Routine Comment: Consulting Provider: AJ HOBSON Physician Instructions: Reason For Exam: Anemia Consult to Physician [CONS] Routine Comment: Consulting Provider: BYRON SOL Physician Instructions: Reason For Exam: altered mental status Primary care physician: VU HOLDEN Hospitalization Reason for admission: anemia, Altered mental status, benzo overdose Condition: Stable Disposition: DC-01 TO HOME OR SELFCARE Time spent for discharge: 32 minutes - Discharge Diagnoses (1) Altered mental status Status: Resolved Qualifiers: Altered mental status type: disorientation Qualified Code(s): R41.0 - Disorientation, unspecified (2) NSTEMI (non-ST elevated myocardial infarction) Status: Acute (3) Uncontrolled hypertension Status: Resolved (4) Bipolar disorder Status: Chronic (5) COPD (chronic obstructive pulmonary disease) Status: Chronic (6) H/O: GI bleed Status: Chronic (7) IDDM (insulin dependent diabetes mellitus) Status: Chronic Core Measure Documentation - Palliative Care Palliative Care/ Comfort Measures: Not Applicable - Core Measures Any of the following diagnoses?: none Exam - Physical Exam Narrative exam: Not in cardiopulmonary distress. The patient appeared well nourished and normally developed. Vital signs as documented. Head exam is unremarkable. No scleral icterus . Neck is without jugular venous distension, thyromegaly, or carotid bruits. Lungs are clear to auscultation. Cardiac exam reveals regular rate and Rhythm. First and second heart sounds normal. No murmurs, rubs or gallops. Abdominal exam reveals normal bowel sounds, no masses, no organomegaly and no aortic enlargement. Extremities are nonedematous and both femoral and pedal pulses are normal. 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 - Constitutional Vitals: Temp Pulse Resp BP Pulse Ox 97.9 F 86 18 160/56 98 05/24/18 04:30 05/24/18 09:44 05/24/18 04:30 05/24/18 09:44 05/24/18 09:44 Plan Activity: no restrictions Weight Bearing Status: Full Weight Bearing Diet: low salt, diabetic Follow up with: VU HOLDEN MD [Primary Care Provider] - 3-5 Days Prescriptions: Ferrous Sulfate [Feosol 325 MG tab] 325 mg PO BID #60 tablet traMADol [Ultram 50 MG tab] 50 mg PO Q8H PRN #20 tablet PRN Reason: Pain
[2018-05-24] MEDS ORDERED: AMBIEN PO PRN (10:50)
--- NOTE | 2018-05-24 10:52 | Progress Note ---
Assessment and Plan - Patient Problems (1) Altered mental status Current Visit: Yes Status: Resolved Qualifiers: Altered mental status type: disorientation Qualified Code(s): R41.0 - Disorientation, unspecified Plan to address problem: UDS showed benzo and patient was taking diazepam hold benzo and monitor the patient patient can protect airways and she passed bedside swallow evlauation Patient was alert and oriented his morning CT head was negative looks like due to benzo OD. (2) NSTEMI (non-ST elevated myocardial infarction) Current Visit: Yes Status: Acute Plan to address problem: Cardiology consulted and will follow their recommendations said no further cardiac workup (3) Uncontrolled hypertension Current Visit: Yes Status: Resolved Plan to address problem: resume home medications and follow BP and adjust as needed (4) Bipolar disorder Current Visit: Yes Status: Chronic Plan to address problem: Continue home medication (5) COPD (chronic obstructive pulmonary disease) Current Visit: Yes Status: Chronic Plan to address problem: Nebulizer treatment, DuoNeb and continue appropriate home medication (6) H/O: GI bleed Current Visit: Yes Status: Chronic Plan to address problem: Currently no bleeding Monitor H&H GI consulted and said had extensively worked up the patient last time and recommend no further work up. (7) IDDM (insulin dependent diabetes mellitus) Current Visit: Yes Status: Chronic Plan to address problem: Sliding scale insulin, accucheck, ADA diet. Adjust insulin as needed (8) Restless leg syndrome Current Visit: Yes Status: Acute Plan to address problem: Likely due to iron deficiency anemia Started on iron pills (9) Insomnia Current Visit: Yes Status: Acute Plan to address problem: Will start with low-dose of Ambien History Interval history: Patient was seen and evaluated this morning, patient was was alert and oriented. Patient was complaining insomnia, restless leg syndrome and unsteady gait. Hospitalist Physical - Physical exam Narrative exam: Not in cardiopulmonary distress. The patient appeared well nourished and normally developed. Vital signs as documented. Head exam is unremarkable. No scleral icterus . Neck is without jugular venous distension, thyromegaly, or carotid bruits. Lungs are clear to auscultation. Cardiac exam reveals regular rate and Rhythm. First and second heart sounds normal. No murmurs, rubs or gallops. Abdominal exam reveals normal bowel sounds, no masses, no organomegaly and no aortic enlargement. Extremities are nonedematous and both femoral and pedal pulses are normal. SAP DATA ANALYST: patient was alert and oriented. - Constitutional Vitals: Temp Pulse Resp BP Pulse Ox 97.9 F 86 18 160/56 98 05/24/18 04:30 05/24/18 09:44 05/24/18 04:30 05/24/18 09:44 05/24/18 09:44 General appearance: Present: no acute distress Results - Labs CBC & Chem 7: 05/23/18 08:13 05/23/18 17:17 Labs: Laboratory Last Values WBC 5.5 K/mm3 (4.5-11.0) 05/23/18 08:13 RBC 2.73 M/mm3 (3.65-5.03) L 05/23/18 08:13 Hgb 8.4 gm/dl (10.1-14.3) L 05/23/18 08:13 Hct 24.7 % (30.3-42.9) L 05/23/18 08:13 MCV 91 fl (79-97) 05/23/18 08:13 MCH 31 pg (28-32) 05/23/18 08:13 MCHC 34 % (30-34) 05/23/18 08:13 RDW 17.6 % (13.2-15.2) H 05/23/18 08:13 Plt Count 304 K/mm3 (140-440) 05/23/18 08:13 Lymph % (Auto) 33.1 % (13.4-35.0) 05/23/18 08:13 [place] % (Auto) 9.1 % (0.0-7.3) H 05/23/18 08:13 Eos % (Auto) 2.7 % (0.0-4.3) 05/23/18 08:13 Baso % (Auto) 0.9 % (0.0-1.8) 05/23/18 08:13 Lymph # 1.8 K/mm3 (1.2-5.4) 05/23/18 08:13 [place] # 0.5 K/mm3 (0.0-0.8) 05/23/18 08:13 Eos # 0.1 K/mm3 (0.0-0.4) 05/23/18 08:13 Baso # 0.1 K/mm3 (0.0-0.1) 05/23/18 08:13 Seg Neutrophils % 54.2 % (40.0-70.0) 05/23/18 08:13 Seg Neutrophils # 3.0 K/mm3 (1.8-7.7) 05/23/18 08:13 PT 14.7 Sec. (12.2-14.9) 05/21/18 17:23 INR 1.08 (0.87-1.13) 05/21/18 17:23 APTT 32.4 Sec. (24.2-36.6) 05/21/18 17:23 Sodium 141 mmol/L (137-145) 05/23/18 08:13 Potassium 4.3 mmol/L (3.6-5.0) D 05/23/18 17:17 Chloride 110.4 mmol/L (98-107) H 05/23/18 08:13 Carbon Dioxide 19 mmol/L (22-30) L 05/23/18 08:13 Anion Gap 15 mmol/L 05/23/18 08:13 BUN 9 mg/dL (7-17) 05/23/18 08:13 Creatinine 0.9 mg/dL (0.7-1.2) 05/23/18 08:13 Estimated GFR > 60 ml/min 05/23/18 08:13 BUN/Creatinine Ratio 10 % 05/23/18 08:13 Glucose 116 mg/dL (65-100) H 05/23/18 08:13 POC Glucose 163 (70-105) H 05/23/18 17:26 Lactic Acid 1.10 mmol/L (0.7-2.0) 05/21/18 17:23 Calcium 7.7 mg/dL (8.4-10.2) L 05/23/18 08:13 Iron 12 ug/dL (37-170) L 05/24/18 09:19 TIBC 161 mcg/dL (250-450) L 05/24/18 09:19 Ferritin 320.6 ng/mL (13.0-400.0) 05/24/18 09:19 Total Bilirubin 0.30 mg/dL (0.1-1.2) 05/21/18 17:23 Direct Bilirubin < 0.2 mg/dL (0-0.2) 05/21/18 17:23 Indirect Bilirubin 0.1 mg/dL 05/21/18 17:23 AST 24 units/L (5-40) 05/21/18 17:23 ALT 16 units/L (7-56) 05/21/18 17:23 Alkaline Phosphatase 97 units/L (35-129) 05/21/18 17:23 Ammonia 47.0 umol/L (25-60) 05/23/18 11:57 Total Creatine Kinase 699 units/L (30-135) H 05/21/18 17:23 Troponin T 0.089 ng/mL (0.00-0.029) H D 05/21/18 19:45 Total Protein 7.4 g/dL (6.3-8.2) 05/21/18 17:23 Albumin 3.7 g/dL (3.9-5) L 05/21/18 17:23 Albumin/Globulin Ratio 1.0 % 05/21/18 17:23 Triglycerides 154 mg/dL (2-149) H 05/21/18 17:23 Cholesterol 235 mg/dL (50-199) H 05/21/18 17:23 LDL Cholesterol Direct 162 mg/dL (50-130) H 05/21/18 17:23 HDL Cholesterol 47 mg/dL (40-59) 05/21/18 17:23 Cholesterol/HDL Ratio 5.00 % 05/21/18 17:23 Urine Color Yellow (Yellow) 05/21/18 22:13 Urine Turbidity Clear (Clear) 05/21/18 22:13 Urine pH 5.0 (5.0-7.0) 05/21/18 22:13 Ur Specific [place] 1.011 (1.003-1.030) 05/21/18 22:13 Urine Protein >500 mg/dL (Negative) 05/21/18 22:13 Urine Glucose (UA) Neg mg/dL (Negative) 05/21/18 22:13 Urine Ketones 80 mg/dL (Negative) 05/21/18 22:13 Urine Blood Neg (Negative) 05/21/18 22:13 Urine Nitrite Neg (Negative) 05/21/18 22:13 Urine Bilirubin Neg (Negative) 05/21/18 22:13 Urine Urobilinogen < 2.0 mg/dL (<2.0) 05/21/18 22:13 Ur Leukocyte Esterase Neg (Negative) 05/21/18 22:13 Urine WBC (Auto) 3.0 /HPF (0.0-6.0) 05/21/18 22:13 Urine RBC (Auto) 1.0 /HPF (0.0-6.0) 05/21/18 22:13 Urine Bacteria (Auto) 2+ /HPF (Negative) 05/21/18 22:13 Urine Mucus Few /HPF 05/21/18 22:13 Urine Yeast (Budding) 2+ /HPF 05/21/18 22:13 Salicylates < 0.3 mg/dL (2.8-20.0) L 05/21/18 17:23 Urine Opiates Screen Presumptive negative 05/21/18 22:13 Urine Methadone Screen Presumptive negative 05/21/18 22:13 Acetaminophen < 5.0 ug/mL (10.0-30.0) L 05/21/18 17:23 Ur Barbiturates Screen Presumptive negative 05/21/18 22:13 Ur Phencyclidine Scrn Presumptive negative 05/21/18 22:13 Ur Amphetamines Screen Presumptive negative 05/21/18 22:13 U Benzodiazepines Scrn Presumptive positive 05/21/18 22:13 Urine Cocaine Screen Presumptive negative 05/21/18 22:13 U Marijuana (THC) Screen Presumptive negative 05/21/18 22:13 Drugs of Abuse Note Disclamer 05/21/18 22:13 Plasma/Serum Alcohol < 0.01 % (0-0.07) 05/21/18 17:23 Nutrition/Malnutrition Assess - Dietary Evaluation Nutrition/Malnutrition Findings: Nutrition Notes Start: 05/22/18 13:32 Freq: Status: Active Protocol: Document 05/22/18 13:32 TW (Rec: 05/22/18 13:40 TW [email or web address]) Co-Sign 05/22/18 13:32 LP Nutrition Notes Need for Assessment generated from: cardiac exercise specialist Initial or Follow up Brief Note Current Diagnosis Diabetes,Hypertension,Stroke Other Pertinent Diagnosis GI Bleed Current Diet Cardiac/ Consistent CHO Labs/Tests Na: 148 Pertinent Medications Lovenox Height 4 ft 11 in Weight 66.5 kg [place] Body Weight (kg) 43.18 BMI 29.6 Subjective/Other Information RN screen for Marco Score. Marco Score: 17. Pt stated she is eating most of her meals and her appetite is well . Pt denied wt loss and N/V/D. Observed breakfast tray mostly eaten. Burn Absent Trauma Absent Nutrition Intervention Revisit per MD consult or patient Sign Off request:
[2018-05-24] MEDS: ZESTRIL PO SCH ×2 (11:29→22:44)
[2018-05-24] MEDS: FEOSOL PO SCH ×2 (11:29→22:44)
[2018-05-24] MEDS: PROTONIX PO SCH ×2 (11:29→22:44)
[2018-05-24] MEDS: LOVENOX SUB-Q SCH (11:29)
[2018-05-24] MEDS: SODIUM CHLORIDE FLUSH SYRINGE 10 ML IV SCH ×2 (11:30→22:44)
[2018-05-25] MEDS: CARDIZEM PO SCH ×4 (02:50→18:08)
[2018-05-25] MEDS: DUONEB *Not for PRN Use IH SCH ×4 (02:54→19:23)
[2018-05-25] MEDS: PERCOCET 5/325 PO PRN ×2 (03:57→16:05)
[2018-05-25] MEDS: NEURONTIN PO SCH ×3 (06:30→21:15)
[2018-05-25 07:36] LABS: Hematocrit 23.7 % (30.3-42.9)
[2018-05-25 07:51] LABS: BUN/Creatinine Ratio 9; Blood Urea Nitrogen 8 mg/dL (7-17); Calcium 8.1 mg/dL (8.4-10.2); Hemolysis Index 20
[2018-05-25] MEDS: NACL 0.9% 1000 ML 1,000 ML IV SCH ×2 (08:30→21:19)
[2018-05-25] MEDS: ZESTRIL PO SCH ×2 (09:40→21:15)
[2018-05-25] MEDS: PROTONIX PO SCH ×2 (09:40→21:15)
[2018-05-25] MEDS: FEOSOL PO SCH ×2 (09:41→21:15)
[2018-05-25] MEDS: LOVENOX SUB-Q SCH (09:41)
[2018-05-25] MEDS: CARAFATE PO SCH ×4 (09:41→21:15)
[2018-05-25] MEDS: SODIUM CHLORIDE FLUSH SYRINGE 10 ML IV SCH ×2 (09:41→21:16)
--- NOTE | 2018-05-25 10:20 | Progress Note ---
Assessment and Plan Assessment and plan: Acute encephalopathy -Probably toxic due to benzo use -CT head was negative -Improved, will continue to monitor chronic troponin elevation -No further cardiac work up by cardiology Hypertension -Controlled on meds Acute on chronic anemia -likely due to duodenal ulcer -H/H stable, will monitor -No further w/u by GI Bipolar disorder -Stable COPD -No acute exacerbation IDDM2 (insulin dependent diabetes mellitus) -Controlled Insomnia -On Ambien Hypernatremia -resolved Hypokalemia -resolved Metabolic acidosis -improved, will monitor -on oral sodium bicarbonate Leucocytosis -resolved -ua and blood cultures neg Physical deconditioning -PT consulted Disposition: We will await PT evaluation before discharge History Interval history: Patient has no new complaints. However she continues to have unsteady gait Hospitalist Physical - Constitutional Vitals: Temp Pulse Resp BP Pulse Ox 97.7 F 83 20 136/59 98 05/25/18 10:01 05/25/18 10:01 05/25/18 10:01 05/25/18 10:01 05/25/18 10:01 General appearance: Present: no acute distress - EENT Eyes: Present: PERRL, EOM intact ENT: hearing intact, clear oral mucosa - Neck Neck: Present: supple - Respiratory Respiratory effort: normal Respiratory: bilateral: CTA - Cardiovascular Rhythm: regular Heart Sounds: Present: S1 & S2 - Extremities Extremities: No edema - Abdominal General gastrointestinal: soft, non-tender, non-distended, normal bowel sounds - Neurologic Neurologic: CNII-XII intact Results - Labs CBC & Chem 7: 05/25/18 07:11 05/25/18 07:11 Labs: Laboratory Last Values WBC 5.5 K/mm3 (4.5-11.0) 05/23/18 08:13 RBC 2.73 M/mm3 (3.65-5.03) L 05/23/18 08:13 Hgb 8.0 gm/dl (10.1-14.3) L 05/25/18 07:11 Hct 23.7 % (30.3-42.9) L 05/25/18 07:11 MCV 91 fl (79-97) 05/23/18 08:13 MCH 31 pg (28-32) 05/23/18 08:13 MCHC 34 % (30-34) 05/23/18 08:13 RDW 17.6 % (13.2-15.2) H 05/23/18 08:13 Plt Count 304 K/mm3 (140-440) 05/23/18 08:13 Lymph % (Auto) 33.1 % (13.4-35.0) 05/23/18 08:13 [place] % (Auto) 9.1 % (0.0-7.3) H 05/23/18 08:13 Eos % (Auto) 2.7 % (0.0-4.3) 05/23/18 08:13 Baso % (Auto) 0.9 % (0.0-1.8) 05/23/18 08:13 Lymph # 1.8 K/mm3 (1.2-5.4) 05/23/18 08:13 [place] # 0.5 K/mm3 (0.0-0.8) 05/23/18 08:13 Eos # 0.1 K/mm3 (0.0-0.4) 05/23/18 08:13 Baso # 0.1 K/mm3 (0.0-0.1) 05/23/18 08:13 Seg Neutrophils % 54.2 % (40.0-70.0) 05/23/18 08:13 Seg Neutrophils # 3.0 K/mm3 (1.8-7.7) 05/23/18 08:13 PT 14.7 Sec. (12.2-14.9) 05/21/18 17:23 INR 1.08 (0.87-1.13) 05/21/18 17:23 APTT 32.4 Sec. (24.2-36.6) 05/21/18 17:23 Sodium 142 mmol/L (137-145) 05/25/18 07:11 Potassium 4.1 mmol/L (3.6-5.0) 05/25/18 07:11 Chloride 114.5 mmol/L (98-107) H 05/25/18 07:11 Carbon Dioxide 19 mmol/L (22-30) L 05/25/18 07:11 Anion Gap 13 mmol/L 05/25/18 07:11 BUN 8 mg/dL (7-17) 05/25/18 07:11 Creatinine 0.9 mg/dL (0.7-1.2) 05/25/18 07:11 Estimated GFR > 60 ml/min 05/25/18 07:11 BUN/Creatinine Ratio 9 % 05/25/18 07:11 Glucose 103 mg/dL (65-100) H 05/25/18 07:11 POC Glucose 163 (70-105) H 05/23/18 17:26 Lactic Acid 1.10 mmol/L (0.7-2.0) 05/21/18 17:23 Calcium 8.1 mg/dL (8.4-10.2) L 05/25/18 07:11 Iron 12 ug/dL (37-170) L 05/24/18 09:19 TIBC 161 mcg/dL (250-450) L 05/24/18 09:19 Ferritin 320.6 ng/mL (13.0-400.0) 05/24/18 09:19 Total Bilirubin 0.30 mg/dL (0.1-1.2) 05/21/18 17:23 Direct Bilirubin < 0.2 mg/dL (0-0.2) 05/21/18 17:23 Indirect Bilirubin 0.1 mg/dL 05/21/18 17:23 AST 24 units/L (5-40) 05/21/18 17:23 ALT 16 units/L (7-56) 05/21/18 17:23 Alkaline Phosphatase 97 units/L (35-129) 05/21/18 17:23 Ammonia 47.0 umol/L (25-60) 05/23/18 11:57 Total Creatine Kinase 699 units/L (30-135) H 05/21/18 17:23 Troponin T 0.089 ng/mL (0.00-0.029) H D 05/21/18 19:45 Total Protein 7.4 g/dL (6.3-8.2) 05/21/18 17:23 Albumin 3.7 g/dL (3.9-5) L 05/21/18 17:23 Albumin/Globulin Ratio 1.0 % 05/21/18 17:23 Triglycerides 154 mg/dL (2-149) H 05/21/18 17:23 Cholesterol 235 mg/dL (50-199) H 05/21/18 17:23 LDL Cholesterol Direct 162 mg/dL (50-130) H 05/21/18 17:23 HDL Cholesterol 47 mg/dL (40-59) 05/21/18 17:23 Cholesterol/HDL Ratio 5.00 % 05/21/18 17:23 Urine Color Yellow (Yellow) 05/21/18 22:13 Urine Turbidity Clear (Clear) 05/21/18 22:13 Urine pH 5.0 (5.0-7.0) 05/21/18 22:13 Ur Specific [place] 1.011 (1.003-1.030) 05/21/18 22:13 Urine Protein >500 mg/dL (Negative) 05/21/18 22:13 Urine Glucose (UA) Neg mg/dL (Negative) 05/21/18 22:13 Urine Ketones 80 mg/dL (Negative) 05/21/18 22:13 Urine Blood Neg (Negative) 05/21/18 22:13 Urine Nitrite Neg (Negative) 05/21/18 22:13 Urine Bilirubin Neg (Negative) 05/21/18 22:13 Urine Urobilinogen < 2.0 mg/dL (<2.0) 05/21/18 22:13 Ur Leukocyte Esterase Neg (Negative) 05/21/18 22:13 Urine WBC (Auto) 3.0 /HPF (0.0-6.0) 05/21/18 22:13 Urine RBC (Auto) 1.0 /HPF (0.0-6.0) 05/21/18 22:13 Urine Bacteria (Auto) 2+ /HPF (Negative) 05/21/18 22:13 Urine Mucus Few /HPF 05/21/18 22:13 Urine Yeast (Budding) 2+ /HPF 05/21/18 22:13 Salicylates < 0.3 mg/dL (2.8-20.0) L 05/21/18 17:23 Urine Opiates Screen Presumptive negative 05/21/18 22:13 Urine Methadone Screen Presumptive negative 05/21/18 22:13 Acetaminophen < 5.0 ug/mL (10.0-30.0) L 05/21/18 17:23 Ur Barbiturates Screen Presumptive negative 05/21/18 22:13 Ur Phencyclidine Scrn Presumptive negative 05/21/18 22:13 Ur Amphetamines Screen Presumptive negative 05/21/18 22:13 U Benzodiazepines Scrn Presumptive positive 05/21/18 22:13 Urine Cocaine Screen Presumptive negative 05/21/18 22:13 U Marijuana (THC) Screen Presumptive negative 05/21/18 22:13 Drugs of Abuse Note Disclamer 05/21/18 22:13 Plasma/Serum Alcohol < 0.01 % (0-0.07) 05/21/18 17:23 Nutrition/Malnutrition Assess - Dietary Evaluation Nutrition/Malnutrition Findings: Nutrition Notes Start: 05/22/18 13:32 Freq: Status: Active Protocol: Document 05/22/18 13:32 TW (Rec: 05/22/18 13:40 TW [email or web address]) Co-Sign 05/22/18 13:32 LP Nutrition Notes Need for Assessment generated from: gas combustion engineer Initial or Follow up Brief Note Current Diagnosis Diabetes,Hypertension,Stroke Other Pertinent Diagnosis GI Bleed Current Diet Cardiac/ Consistent CHO Labs/Tests Na: 148 Pertinent Medications Lovenox Height 4 ft 11 in Weight 66.5 kg [place] Body Weight (kg) 43.18 BMI 29.6 Subjective/Other Information RN screen for Marco Score. Marco Score: 17. Pt stated she is eating most of her meals and her appetite is well . Pt denied wt loss and N/V/D. Observed breakfast tray mostly eaten. Burn Absent Trauma Absent Nutrition Intervention Revisit per MD consult or patient Sign Off request:
--- NOTE | 2018-05-25 14:53 | Progress Note ---
Assessment and Plan 1. Anemia - slow mild drift. Pt is iron deficient. Has known duodenal ulcer, but no evidence of active bleeding. - if H/H stable, okay to D/C home on oral iron and PPI and outpatient follow up. - IV iron could be given to accelerate improvement. Subjective Date of service: 05/25/18 Principal diagnosis: Altered mental status, Chronic elevated Tn, Uncontrolled HTN Interval history: Pt denies complaints. No BM x 2-3 days. Shreyas po well. Objective - Constitutional Vitals: Vital Signs - 12hr 05/25/18 05/25/18 05/25/18 03:57 04:35 09:39 Temperature 98.0 F 98.2 F Pulse Rate 98 H 78 Pulse Rate [ Apical] Pulse Rate [ Left Radial] Pulse Rate [ Right Radial] Respiratory 18 18 18 Rate Blood Pressure 158/64 Blood Pressure 147/49 [Left] O2 Sat by Pulse 97 Oximetry 05/25/18 05/25/18 05/25/18 09:40 10:00 10:01 Temperature 97.7 F Pulse Rate 78 83 Pulse Rate [ 78 Apical] Pulse Rate [ 78 Left Radial] Pulse Rate [ 78 Right Radial] Respiratory 19 20 Rate Blood Pressure 147/49 136/59 Blood Pressure [Left] O2 Sat by Pulse 98 98 Oximetry 05/25/18 05/25/18 11:27 12:00 Temperature 98.4 F Pulse Rate 74 78 Pulse Rate [ Apical] Pulse Rate [ Left Radial] Pulse Rate [ Right Radial] Respiratory 19 Rate Blood Pressure 145/56 Blood Pressure 148/49 [Left] O2 Sat by Pulse Oximetry General appearance: Present: no acute distress - EENT Eyes: PERRL, EOM intact ENT: hearing intact - Respiratory Respiratory effort: normal - Gastrointestinal General gastrointestinal: Present: soft, non-tender - Labs CBC & Chem 7: 05/25/18 07:11 05/25/18 07:11 Labs: Abnormal lab results 05/25/18 05/25/18 Range/Units 07:11 07:11 Hgb 8.0 L (10.1-14.3) gm/dl Hct 23.7 L (30.3-42.9) % Chloride 114.5 H (98-107) mmol/L Carbon Dioxide 19 L (22-30) mmol/L Glucose 103 H (65-100) mg/dL Calcium 8.1 L (8.4-10.2) mg/dL Medications & Allergies - Medications Allergies/Adverse Reactions: Allergies Sulfa (Sulfonamide Antibiotics) Allergy (Verified 05/09/18 17:10) Rash Home Medications: Home Medications Medication Instructions Recorded Confirmed Last Taken Type Gabapentin [Neurontin] 400 mg PO Q8HR 02/21/18 05/10/18 Unknown History amLODIPine [Norvasc] 10 mg PO DAILY 02/21/18 05/10/18 Unknown History Diazepam [Valium] 10 mg PO BID 05/10/18 05/10/18 Unknown History Ipratropium/Albuter (Nf) 3 mcg IH TID 05/10/18 05/10/18 Unknown History [Combivent Inhaler] Lisinopril [Zestril] 20 mg PO DAILY 05/10/18 05/10/18 Unknown History QUEtiapine [SEROquel] 100 mg PO HS 05/10/18 05/10/18 Unknown History metFORMIN 500 mg PO DAILY 05/10/18 05/10/18 Unknown History Pantoprazole [Protonix TAB] 40 mg PO BID #60 tablet 05/14/18 Unknown Rx Polyethylene Glycol 3350 [Miralax 17 gm PO QDAY PRN #30 powd.pack 05/14/18 Unknown Rx 3350] Ferrous Sulfate [Feosol 325 MG tab] 325 mg PO BID #60 tablet 05/24/18 Unknown Rx traMADol [Ultram 50 MG tab] 50 mg PO Q8H PRN #20 tablet 05/24/18 Unknown Rx Active Medications: Generic Name Dose Route Start Last Admin Trade Name Freq PRN Reason Stop Dose Admin Acetaminophen 650 mg 05/22/18 03:28 05/24/18 06:23 Tylenol PO 650 mg Q4H PRN Administration Pain MILD(1-3)/Fever >100.5/[place] Albuterol 2.5 mg 05/22/18 10:22 Proventil IH Q3HRT PRN Shortness Of Breath Albuterol/Ipratropium 1 ampul 05/22/18 14:00 05/25/18 14:10 Duoneb *Not For Prn Use* IH Not Given Q6HRT LUDA Diltiazem HCl 60 mg 05/22/18 12:00 05/25/18 11:27 Cardizem PO 60 mg Q6HR LUDA Administration Enoxaparin Sodium 40 mg 05/22/18 10:00 05/25/18 09:41 Lovenox SUB-Q 40 mg QDAY@1000 LUDA Administration Ferrous Sulfate 325 mg 05/24/18 10:00 05/25/18 09:41 Feosol PO 325 mg BID LUDA Administration Gabapentin 400 mg 05/22/18 14:00 05/25/18 14:49 Neurontin PO 400 mg Q8HR LUDA Administration Hydralazine HCl 10 mg 05/22/18 09:21 05/22/18 11:41 Apresoline IV 10 mg Q4H PRN Administration Hypertension Sodium Chloride 1,000 mls @ 125 mls/hr 05/22/18 04:00 05/25/18 08:30 Nacl 0.9% 1000 Ml IV 125 mls/hr DIRECT LUDA Administration Lisinopril 20 mg 05/22/18 14:00 05/25/18 09:40 Zestril PO 20 mg BID LUDA Administration Ondansetron HCl 4 mg 05/22/18 03:28 Zofran IV Q8H PRN Nausea And Vomiting Oxycodone/Acetaminophen 1 tab 05/23/18 16:47 05/25/18 03:57 Percocet 5/325 PO 1 tab Q6H PRN Administration Pain, Moderate (4-6) Pantoprazole Sodium 40 mg 05/22/18 11:00 05/25/18 09:40 Protonix PO 40 mg BID LUDA Administration Polyethylene Glycol 17 gm 05/22/18 10:08 Miralax 3350 PO QDAY PRN Constipation Quetiapine Fumarate 100 mg 05/22/18 22:00 05/24/18 22:44 Seroquel PO 100 mg QHS LUDA Administration Sodium Chloride 10 ml 05/22/18 10:00 05/25/18 09:41 Sodium Chloride Flush Syringe 10 Ml IV 10 ml BID LUDA Administration Sodium Chloride 10 ml 05/22/18 03:28 Sodium Chloride Flush Syringe 10 Ml IV PRN PRN LINE FLUSH Sucralfate 1 gm 05/23/18 16:30 05/25/18 11:27 Carafate PO 1 gm ACHS LUDA Administration Zolpidem Tartrate 5 mg 05/24/18 10:50 Ambien PO QHS PRN Sleep
[2018-05-25] MEDS: SENOKOT S PO SCH (18:07)
[2018-05-25] MEDS: SODIUM BICARBONATE PO SCH (21:15)
[2018-05-26] MEDS: PERCOCET 5/325 PO PRN ×4 (01:44→23:20)
[2018-05-26] MEDS: CARDIZEM PO SCH ×5 (05:12→23:19)
[2018-05-26] MEDS: SENOKOT S PO SCH ×2 (05:12→17:02)
[2018-05-26] MEDS: NEURONTIN PO SCH ×3 (05:15→21:14)
[2018-05-26 07:52] LABS: Calcium 8.3 mg/dL (8.4-10.2)
[2018-05-26] MEDS: DUONEB *Not for PRN Use IH SCH ×3 (09:40→20:24)
[2018-05-26] MEDS: LOVENOX SUB-Q SCH (10:38)
[2018-05-26] MEDS: ZESTRIL PO SCH ×2 (10:38→21:13)
[2018-05-26] MEDS: SODIUM BICARBONATE PO SCH ×2 (10:38→21:13)
[2018-05-26] MEDS: PROTONIX PO SCH ×2 (10:38→21:14)
[2018-05-26] MEDS: FEOSOL PO SCH ×2 (10:38→21:14)
[2018-05-26] MEDS: SODIUM CHLORIDE FLUSH SYRINGE 10 ML IV SCH ×2 (10:40→21:16)
[2018-05-26] MEDS: CARAFATE PO SCH ×4 (10:40→21:13)
--- NOTE | 2018-05-26 14:37 | Gastroenterology Progress Note ---
Assessment and Plan 1.anemia 2.H/o recent GI bleed 2/2 duodenal ulcer -iron 12 -H/H 8.0/23.7-slow mild drift -continue to monitor H/H and transfuse as needed -hold blood thinning medications -no active signs of bleeding -s/p EGD 03/30/18 and 05/10/2018 that showed a large duodenal bulb ulcer with visible vessel (s/p epi injection and clips x 2 placed) -bx results negative for H.pylori or malignancy -etiology-most likely 2/2 known duodenal ulcer -no plans for repeat endoscopy at this time, unless overt bleeding develops -continue high dose PPI and carafate -continue iron supplement (consider IV iron to optimize recovery prior to d/c) -avoid NSAIDs -continue supportive care -patient okay to be d/c per GI standpoint on medications as above with f/u in c linic ~1-2 weeks -will sign off, please call if needed Subjective Date of service: 05/26/18 Principal diagnosis: anemia Interval history: No active signs of bleeding overnight or this am. Denies abd pain or N/V. States she feels better and is requesting to go home. Objective - Constitutional Vitals: Temp Pulse Resp BP Pulse Ox 98.1 F 89 19 135/82 98 05/26/18 08:30 05/26/18 12:59 05/26/18 10:00 05/26/18 12:59 05/26/18 10:00 General appearance: no acute distress - Respiratory Respiratory: bilateral: diminished - Cardiovascular Rhythm: regular - Gastrointestinal General gastrointestinal: Present: soft, non-tender, non-distended, normal bowel sounds - Labs CBC & Chem 7: 05/25/18 07:11 05/26/18 07:15 Labs: Laboratory Results - last 24 hr 05/26/18 07:15 Sodium 144 Potassium 4.0 Chloride 113.3 H Carbon Dioxide 21 L Anion Gap 14 BUN 8 Creatinine 1.0 Estimated GFR 55 BUN/Creatinine Ratio 8 Glucose 105 H Calcium 8.3 L
--- NOTE | 2018-05-26 16:22 | Progress Note ---
Assessment and Plan Assessment and plan: Acute encephalopathy -Probably toxic due to benzo use -CT head was negative -Improved, will continue to monitor clinically chronic troponin elevation -No further cardiac work up by cardiology Unsteady gait -MRI brain pending Hypertension -Controlled on meds Acute on chronic anemia -likely due to duodenal ulcer -H/H stable, will monitor -No further w/u by GI Bipolar disorder -Stable COPD -No acute exacerbation IDDM2 (insulin dependent diabetes mellitus) -Controlled Insomnia -On Ambien Hypernatremia -resolved Hypokalemia -resolved Metabolic acidosis -improving, will monitor -on oral sodium bicarbonate Leucocytosis -resolved -ua and blood cultures neg Disposition: D/C in am if MRI brain is neg History Interval history: pt reports feeling better today. Hospitalist Physical - Constitutional Vitals: Temp Pulse Resp BP Pulse Ox 98.1 F 89 19 135/82 98 05/26/18 08:30 05/26/18 12:59 05/26/18 10:00 05/26/18 12:59 05/26/18 10:00 General appearance: Present: no acute distress - EENT Eyes: Present: PERRL, EOM intact ENT: hearing intact, clear oral mucosa - Neck Neck: Present: supple - Respiratory Respiratory effort: normal Respiratory: bilateral: CTA - Cardiovascular Rhythm: regular Heart Sounds: Present: S1 & S2 - Extremities Extremities: No edema - Abdominal General gastrointestinal: soft, non-tender, normal bowel sounds - Neurologic Neurologic: CNII-XII intact Results - Labs CBC & Chem 7: 05/25/18 07:11 05/26/18 07:15 Labs: Laboratory Last Values WBC 5.5 K/mm3 (4.5-11.0) 05/23/18 08:13 RBC 2.73 M/mm3 (3.65-5.03) L 05/23/18 08:13 Hgb 8.0 gm/dl (10.1-14.3) L 05/25/18 07:11 Hct 23.7 % (30.3-42.9) L 05/25/18 07:11 MCV 91 fl (79-97) 05/23/18 08:13 MCH 31 pg (28-32) 05/23/18 08:13 MCHC 34 % (30-34) 05/23/18 08:13 RDW 17.6 % (13.2-15.2) H 05/23/18 08:13 Plt Count 304 K/mm3 (140-440) 05/23/18 08:13 Lymph % (Auto) 33.1 % (13.4-35.0) 05/23/18 08:13 [place] % (Auto) 9.1 % (0.0-7.3) H 05/23/18 08:13 Eos % (Auto) 2.7 % (0.0-4.3) 05/23/18 08:13 Baso % (Auto) 0.9 % (0.0-1.8) 05/23/18 08:13 Lymph # 1.8 K/mm3 (1.2-5.4) 05/23/18 08:13 Mel[place] # 0.5 K/mm3 (0.0-0.8) 05/23/18 08:13 Eos # 0.1 K/mm3 (0.0-0.4) 05/23/18 08:13 Baso # 0.1 K/mm3 (0.0-0.1) 05/23/18 08:13 Seg Neutrophils % 54.2 % (40.0-70.0) 05/23/18 08:13 Seg Neutrophils # 3.0 K/mm3 (1.8-7.7) 05/23/18 08:13 PT 14.7 Sec. (12.2-14.9) 05/21/18 17:23 INR 1.08 (0.87-1.13) 05/21/18 17:23 APTT 32.4 Sec. (24.2-36.6) 05/21/18 17:23 Sodium 144 mmol/L (137-145) 05/26/18 07:15 Potassium 4.0 mmol/L (3.6-5.0) 05/26/18 07:15 Chloride 113.3 mmol/L (98-107) H 05/26/18 07:15 Carbon Dioxide 21 mmol/L (22-30) L 05/26/18 07:15 Anion Gap 14 mmol/L 05/26/18 07:15 BUN 8 mg/dL (7-17) 05/26/18 07:15 Creatinine 1.0 mg/dL (0.7-1.2) 05/26/18 07:15 Estimated GFR 55 ml/min 05/26/18 07:15 BUN/Creatinine Ratio 8 % 05/26/18 07:15 Glucose 105 mg/dL (65-100) H 05/26/18 07:15 POC Glucose 163 (70-105) H 05/23/18 17:26 Lactic Acid 1.10 mmol/L (0.7-2.0) 05/21/18 17:23 Calcium 8.3 mg/dL (8.4-10.2) L 05/26/18 07:15 Iron 12 ug/dL (37-170) L 05/24/18 09:19 TIBC 161 mcg/dL (250-450) L 05/24/18 09:19 Ferritin 320.6 ng/mL (13.0-400.0) 05/24/18 09:19 Total Bilirubin 0.30 mg/dL (0.1-1.2) 05/21/18 17:23 Direct Bilirubin < 0.2 mg/dL (0-0.2) 05/21/18 17:23 Indirect Bilirubin 0.1 mg/dL 05/21/18 17:23 AST 24 units/L (5-40) 05/21/18 17:23 ALT 16 units/L (7-56) 05/21/18 17:23 Alkaline Phosphatase 97 units/L (35-129) 05/21/18 17:23 Ammonia 47.0 umol/L (25-60) 05/23/18 11:57 Total Creatine Kinase 699 units/L (30-135) H 05/21/18 17:23 Troponin T 0.089 ng/mL (0.00-0.029) H D 05/21/18 19:45 Total Protein 7.4 g/dL (6.3-8.2) 05/21/18 17:23 Albumin 3.7 g/dL (3.9-5) L 05/21/18 17:23 Albumin/Globulin Ratio 1.0 % 05/21/18 17:23 Triglycerides 154 mg/dL (2-149) H 05/21/18 17:23 Cholesterol 235 mg/dL (50-199) H 05/21/18 17:23 LDL Cholesterol Direct 162 mg/dL (50-130) H 05/21/18 17:23 HDL Cholesterol 47 mg/dL (40-59) 05/21/18 17:23 Cholesterol/HDL Ratio 5.00 % 05/21/18 17:23 Urine Color Yellow (Yellow) 05/21/18 22:13 Urine Turbidity Clear (Clear) 05/21/18 22:13 Urine pH 5.0 (5.0-7.0) 05/21/18 22:13 Ur Specific Omar 1.011 (1.003-1.030) 05/21/18 22:13 Urine Protein >500 mg/dL (Negative) 05/21/18 22:13 Urine Glucose (UA) Neg mg/dL (Negative) 05/21/18 22:13 Urine Ketones 80 mg/dL (Negative) 05/21/18 22:13 Urine Blood Neg (Negative) 05/21/18 22:13 Urine Nitrite Neg (Negative) 05/21/18 22:13 Urine Bilirubin Neg (Negative) 05/21/18 22:13 Urine Urobilinogen < 2.0 mg/dL (<2.0) 05/21/18 22:13 Ur Leukocyte Esterase Neg (Negative) 05/21/18 22:13 Urine WBC (Auto) 3.0 /HPF (0.0-6.0) 05/21/18 22:13 Urine RBC (Auto) 1.0 /HPF (0.0-6.0) 05/21/18 22:13 Urine Bacteria (Auto) 2+ /HPF (Negative) 05/21/18 22:13 Urine Mucus Few /HPF 05/21/18 22:13 Urine Yeast (Budding) 2+ /HPF 05/21/18 22:13 Salicylates < 0.3 mg/dL (2.8-20.0) L 05/21/18 17:23 Urine Opiates Screen Presumptive negative 05/21/18 22:13 Urine Methadone Screen Presumptive negative 05/21/18 22:13 Acetaminophen < 5.0 ug/mL (10.0-30.0) L 05/21/18 17:23 Ur Barbiturates Screen Presumptive negative 05/21/18 22:13 Ur Phencyclidine Scrn Presumptive negative 05/21/18 22:13 Ur Amphetamines Screen Presumptive negative 05/21/18 22:13 U Benzodiazepines Scrn Presumptive positive 05/21/18 22:13 Urine Cocaine Screen Presumptive negative 05/21/18 22:13 U Marijuana (THC) Screen Presumptive negative 05/21/18 22:13 Drugs of Abuse Note Disclamer 05/21/18 22:13 Plasma/Serum Alcohol < 0.01 % (0-0.07) 05/21/18 17:23 Active Medications - Current Medications Current Medications: Generic Name Dose Route Start Last Admin Trade Name Freq PRN Reason Stop Dose Admin Acetaminophen 650 mg 05/22/18 03:28 05/24/18 06:23 Tylenol PO 650 mg Q4H PRN Administration Pain MILD(1-3)/Fever >100.5/BURTON Albuterol 2.5 mg 05/22/18 10:22 Proventil IH Q3HRT PRN Shortness Of Breath Albuterol/Ipratropium 1 ampul 05/25/18 20:00 05/26/18 15:39 Duoneb *Not For Prn Use* IH Not Given TIDRT LUDA Diltiazem HCl 60 mg 05/22/18 12:00 05/26/18 12:59 Cardizem PO 60 mg Q6HR LUDA Administration Enoxaparin Sodium 40 mg 05/22/18 10:00 05/26/18 10:38 Lovenox SUB-Q 40 mg QDAY@1000 LUDA Administration Ferrous Sulfate 325 mg 05/24/18 10:00 05/26/18 10:38 Feosol PO 325 mg BID LUDA Administration Gabapentin 400 mg 05/22/18 14:00 05/26/18 14:45 Neurontin PO 400 mg Q8HR LUDA Administration Hydralazine HCl 10 mg 05/22/18 09:21 05/22/18 11:41 Apresoline IV 10 mg Q4H PRN Administration Hypertension Sodium Chloride 1,000 mls @ 125 mls/hr 05/22/18 04:00 05/25/18 21:19 Nacl 0.9% 1000 Ml IV 125 mls/hr DIRECT LUDA Administration Lisinopril 20 mg 05/22/18 14:00 05/26/18 10:38 Zestril PO 20 mg BID LUDA Administration Ondansetron HCl 4 mg 05/22/18 03:28 Zofran IV Q8H PRN Nausea And Vomiting Oxycodone/Acetaminophen 1 tab 05/23/18 16:47 05/26/18 10:37 Percocet 5/325 PO 1 tab Q6H PRN Administration Pain, Moderate (4-6) Pantoprazole Sodium 40 mg 05/22/18 11:00 05/26/18 10:38 Protonix PO 40 mg BID LUDA Administration Polyethylene Glycol 17 gm 05/22/18 10:08 Miralax 3350 PO QDAY PRN Constipation Quetiapine Fumarate 100 mg 05/22/18 22:00 05/25/18 21:15 Seroquel PO 100 mg QHS LUDA Administration Senna/Docusate Sodium 2 tab 05/25/18 17:00 05/26/18 05:12 Senokot S PO 2 tab Q12H LUDA Administration Sodium Bicarbonate 650 mg 05/25/18 22:00 05/26/18 10:38 Sodium Bicarbonate PO 05/27/18 21:59 650 mg BID LUDA Administration Sodium Chloride 10 ml 05/22/18 10:00 05/26/18 10:40 Sodium Chloride Flush Syringe 10 Ml IV 10 ml BID LUDA Administration Sodium Chloride 10 ml 05/22/18 03:28 Sodium Chloride Flush Syringe 10 Ml IV PRN PRN LINE FLUSH Sucralfate 1 gm 05/23/18 16:30 05/26/18 12:59 Carafate PO 1 gm ACHS LUDA Administration Zolpidem Tartrate 5 mg 05/24/18 10:50 Ambien PO QHS PRN Sleep Nutrition/Malnutrition Assess - Dietary Evaluation Nutrition/Malnutrition Findings: Nutrition Notes Start: 05/22/18 13:32 Freq: Status: Active Protocol: Document 05/22/18 13:32 TW (Rec: 05/22/18 13:40 TW [email or web address]) Co-Sign 05/22/18 13:32 LP Nutrition Notes Need for 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 Marco Score: 17. Pt stated she is eating most of her meals and her appetite is well . Pt denied wt loss and N/V/D. Observed breakfast tray mostly eaten. Burn Absent Trauma Absent Nutrition Intervention Revisit per MD consult or patient Sign Off request:
[2018-05-27] MEDS: NEURONTIN PO SCH ×2 (05:15→14:13)
[2018-05-27] MEDS: CARDIZEM PO SCH ×2 (05:16→14:13)
[2018-05-27] MEDS: SENOKOT S PO SCH (05:51)
[2018-05-27 06:26] LABS: Hematocrit 22.5 % (30.3-42.9); Hemoglobin 7.6 gm/dl (10.1-14.3); Mean Corpuscular HGB Conc 34 % (30-34); Mean Corpuscular Volume 92 fl (79-97); Platelet Count 221 K/mm3 (140-440); Red Blood Count 2.44 M/mm3 (3.65-5.03); Red Cell Distribution Width 17.2 % (13.2-15.2)
[2018-05-27 06:45] LABS: Calcium 8.3 mg/dL (8.4-10.2)
--- NOTE | 2018-05-27 08:16 | Magnetic Resonance Report ---
MRI OF THE BRAIN WITHOUT CONTRAST: HISTORY: Altered mental status PROCEDURE: Multiplanar, multisequence MR imaging of the brain without IV contrast was performed. FINDINGS: Compared to the CT head dated 05/21/18. MRI demonstrates mild cortical volume loss mild nonspecific T2 signal abnormalities in the white matter. This most likely represents chronic microvascular ischemic disease. No evidence for acute ischemia, hemorrhage or mass. No chronic infarct or extra-axial fluid collection. The midline structures are central. The basal cisterns are patent. Normal ventricular size. The orbital cavities and sella turcica demonstrate no abnormality. The visualized paranasal sinuses and mastoid air cells are well aerated. IMPRESSION: Mild volume loss and nonspecific chronic white matter changes. No acute intracranial process.
[2018-05-27] MEDS: CARAFATE PO SCH ×2 (08:42→12:33)
[2018-05-27] MEDS: DUONEB *Not for PRN Use IH SCH ×2 (09:31→14:44)
[2018-05-27] MEDS: SODIUM CHLORIDE FLUSH SYRINGE 10 ML IV SCH (10:03)
[2018-05-27] MEDS: ZESTRIL PO SCH (10:03)
[2018-05-27] MEDS: PROTONIX PO SCH (10:03)
[2018-05-27] MEDS: FEOSOL PO SCH (10:03)
[2018-05-27] MEDS: SODIUM BICARBONATE PO SCH (10:03)
[2018-05-27] MEDS: LOVENOX SUB-Q SCH (10:03)
--- NOTE | 2018-05-27 10:39 | Discharge Summary ---
Providers - Providers Date of Admission: 05/21/18 23:35 Date of discharge: 05/27/18 Attending physician: HIEN CROWDER 05/23/18 10:45 Consult to Physician [CONS] Routine Comment: Consulting Provider: AJ HOBSON Physician Instructions: Reason For Exam: Anemia 05/24/18 10:45 Physical Therapy Evaluation and Treat [CONS] Routine Comment: Reason For Exam: unsteady gait Primary care physician: VU HOLDEN Hospitalization Reason for admission: AMS Condition: Stable Hospital course: Patient is a 67 y/o female with PMH of HTN, DM, CKD, COPD, bipolar, stroke (TIA), who was brought to ED for AMS after being found on the floor by her neighbors, confused with feces all over. The patient did not recall any of those events after admission. Etiology of the encephalopathy was felt to be secondary to his diazepam use. CT scan of the head and MRI were both negative. Patient had no lateralizing signs or symptoms suggestive of CVA. She denied chest pain or shortness of breath. Her troponin level was elevated. However, this has been a chronic occurence with her on previous admissions. Notably, she underwent stress testing which was negative for ischemia on 05/13/2018. Echocardiogram on 05/28/2018 revealed an ejection fraction of 55-60%. Cardiology saw the patient in consultation and felt that with chronically elevated troponin levels and recent negative stress test, she will not require any further cardiac testing. Other issues during hospital stay included anemia for which GI was consulted. She a hx of GI bleeding 2/2 a large duodenal ulcer found on EGD in March of this year with reoccurring bleeding earlier this month requiring a repeat EGD with epi injection/clip placement on 05/10/2018. Patient reportedly had dark stool on admission. GI recommended high-dose PPI, Carafate and iron supplementation. Also, GI felt the patient could discharge home and follow-up as an outpatient with no further intervention. Dedicated discharge time 32 minutes.. Disposition: - TO HOME OR SELFCARE - Discharge Diagnoses (1) Anemia Status: Acute Qualifiers: Anemia type: other cause Other causes of anemia: other cause, not classified Qualified Code(s): D64.89 - Other specified anemias (2) Bipolar disorder Status: Chronic (3) COPD (chronic obstructive pulmonary disease) Status: Chronic (4) Duodenal ulcer Status: Chronic (5) Elevated troponin Status: Chronic (6) IDDM (insulin dependent diabetes mellitus) Status: Chronic (7) Altered mental status Status: Resolved Qualifiers: Altered mental status type: disorientation Qualified Code(s): R41.0 - Disorientation, unspecified (8) Uncontrolled hypertension Status: Resolved (9) Accidental drug overdose Status: Acute (10) Acute renal failure superimposed on stage 3 chronic kidney disease Status: Acute Core Measure Documentation - Palliative Care Palliative Care/ Comfort Measures: Not Applicable - Core Measures Any of the following diagnoses?: none Exam - Constitutional Vitals: Temp Pulse Resp BP Pulse Ox 97.7 F 97 H 18 154/51 94 05/27/18 08:28 05/27/18 04:40 05/27/18 08:28 05/27/18 10:03 05/27/18 09:31 General appearance: Present: no acute distress, well-nourished - EENT Eyes: Present: PERRL ENT: hearing intact, clear oral mucosa - Neck Neck: Present: supple, normal ROM - Respiratory Respiratory effort: normal Respiratory: bilateral: CTA - Cardiovascular Heart Sounds: Present: S1 & S2. Absent: rub, click - Extremities Extremities: pulses symmetrical, No edema Peripheral Pulses: within normal limits - Abdominal General gastrointestinal: Present: soft, non-tender, non-distended, normal bowel sounds Female genitourinary: Present: normal - Integumentary Integumentary: Present: clear, warm, dry - Musculoskeletal Musculoskeletal: gait normal, strength equal bilaterally - Psychiatric Psychiatric: appropriate mood/affect, intact judgment & insight - Neurologic Neurologic: CNII-XII intact, moves all extremities Plan Activity: no restrictions Weight Bearing Status: Full Weight Bearing Diet: diabetic Follow up with: VU HOLDEN MD [Primary Care Provider] - 3-5 Days Prescriptions: Sucralfate [Carafate] 1 gm PO ACHS 30 Days tablet dilTIAZem [Cardizem] 60 mg PO Q6HR #30 tablet Ferrous Sulfate [Feosol 325 MG tab] 325 mg PO BID #60 tablet traMADol [Ultram 50 MG tab] 50 mg PO Q8H PRN #20 tablet PRN Reason: Pain Lisinopril [Zestril TAB] 20 mg PO BID #60 tablet
[2018-05-27] MEDS: TYLENOL PO PRN (12:33)
[2018-05-27 13:55] VITALS: BP 162/73
== END 2018-05-27 14:55 | disposition home health service (06) | DRG 917 ==
LOC: ED 15:57 → 4A 23:35
PROVIDERS: ADMIT Internal Medicine; ATTEND Hospitalist
DX: T42.4X1A Poisoning by benzodiazepines, accidental (unintentional), initial encounter (principal); G92 Toxic encephalopathy; M62.82 Rhabdomyolysis; N17.9 Acute kidney failure, unspecified; E87.0 Hyperosmolality and hypernatremia; E87.2 Acidosis; R62.7 Adult failure to thrive; I12.9 Hypertensive chronic kidney disease with stage 1 through stage 4 chronic kidney disease, or unspecified chronic kidney disease; E11.22 Type 2 diabetes mellitus with diabetic chronic kidney disease; J44.9 Chronic obstructive pulmonary disease, unspecified; N18.3 Chronic kidney disease, stage 3 (moderate); F31.9 Bipolar disorder, unspecified; T42.4X5A Adverse effect of benzodiazepines, initial encounter; K26.7 Chronic duodenal ulcer without hemorrhage or perforation; D64.89 Other specified anemias; R26.81 Unsteadiness on feet; G47.00 Insomnia, unspecified; E87.6 Hypokalemia; D72.829 Elevated white blood cell count, unspecified; G25.81 Restless legs syndrome; K21.9 Gastro-esophageal reflux disease without esophagitis; M19.90 Unspecified osteoarthritis, unspecified site; Z86.73 Personal history of transient ischemic attack (TIA), and cerebral infarction without residual deficits; Y92.89 Other specified places as the place of occurrence of the external cause; Z79.4 Long term (current) use of insulin; Z88.2 Allergy status to sulfonamides; Z79.899 Other long term (current) drug therapy; Z68.27 Body mass index [BMI] 27.0-27.9, adult; Z89.422 Acquired absence of other left toe(s)
CPT/HCPCS: 36415; 70450; 70551; 71045; 74176; 80048; 80061; 80076; 80307; 80320; 81001; 82140; 82270; 82550; 82728; 82962; 83550; 84132; 84484; 85014; 85018; 85025; 85027; 85610; 85730; 87040; 93005; 93010; 94640; 94760; 95819; 96374; 99291; G0378; G0480; J0360; J1650; J7030

== ENCOUNTER 2018-10-13 08:11 | Inpatient (IN) | payer MEDICARE ==
[2018-10-13] MEDS ORDERED: NACL 0.9% 1000 ML 1,000 ML IV ONE ×2 (08:20→09:27)
--- NOTE | 2018-10-13 08:25 | Emergency Department Report ---
HPI - General Time Seen by Provider: 10/13/18 08:17 - HPI HPI: 67-year-old female presents to the emergency department by EMS with complaint of altered mental status, abdominal pain, hypotension. It appears that one of the patient's neighbors went to check on her and found her altered and called 911. The patient has been complaining of abdominal pain to both EMS and upon arrival here. However she is confused and is currently AAO [address] but not time. Records show that the patient has a past medical history of CVA, diabetes, hypertension, COPD and some previous renal sufficiency. The patient is currently a poor historian secondary to her current condition. ED Past Medical Hx - Past Medical History Hx Hypertension: Yes Hx CVA: Yes (tia) Hx Heart Attack/AMI: (Pt denies) Hx Diabetes: Yes Hx Deep Vein Thrombosis: No Hx GERD: Yes Hx Renal Disease: Yes (Renal insufficiency ) Hx Arthritis: Yes Hx COPD: Yes Additional medical history: tremors, pancreatitis - Surgical History Hx Pacemaker: No Hx Internal Defibrillator: No Hx Breast Surgery: Yes (CYST) Additional Surgical History: Amputated 3rd toe left foot. - Social History Smoking Status: Never Smoker - Medications Home Medications: Home Medications Medication Instructions Recorded Confirmed Last Taken Type amLODIPine [Norvasc] 10 mg PO DAILY 02/21/18 10/13/18 10/12/18 History Lisinopril [Zestril] 10 mg PO DAILY 05/10/18 10/13/18 10/12/18 History Pantoprazole [Protonix TAB] 40 mg PO BID #60 tablet 05/14/18 10/13/18 10/12/18 Rx traMADol [Ultram 50 MG tab] 50 mg PO Q8H PRN #20 tablet 05/24/18 10/13/18 10/12/18 Rx Amitriptyline [Elavil] 25 mg PO QHS 10/13/18 10/13/18 10/12/18 History Bimatoprost [Lumigan 0.01%] 1 drop OP QPM 10/13/18 10/13/18 10/12/18 History Clopidogrel [Plavix] 75 mg PO QDAY 10/13/18 10/13/18 10/12/18 History Cyclobenzaprine [Flexeril 10 MG 10 mg PO BID 10/13/18 10/13/1810/12/19 History TAB] Gabapentin [Neurontin] 600 mg PO Q8H 10/13/18 10/13/18 10/12/18 History metFORMIN [Glucophage] 500 mg PO QDAY 10/13/18 10/13/18 10/12/18 History ED Review of Systems ROS: Stated complaint: AMS Other details as noted in HPI Comment: Unobtainable due to pts medical conditions Physical Exam - Physical Exam Physical Exam: GENERAL: Patient is ill-appearing. HENT: Normocephalic. Atraumatic. Patient has moist mucous membranes. EYES: Extraocular motions are intact. Pupils equal reactive to light bilaterally. NECK: Supple. Trachea is midline. CHEST/LUNGS: Clear to auscultation. There is no respiratory distress noted. HEART/CARDIOVASCULAR: Regular. There is no tachycardia. There is no murmur. ABDOMEN: Abdomen is soft. Generalized tenderness to palpation. No guarding. Patient has normal bowel sounds. SKIN: Skin is warm and dry. NEURO: The patient is awake but confused. Follows some commands. Patient is oriented to person and place but not time. The patient has normal speech. MUSCULOSKELETAL: There is no tenderness or deformity. There is no evidence of acute injury. ED Medical Decision Making - Lab Data Result diagrams: 10/14/18 04:36 10/14/18 04:36 - EKG Data -: EKG Interpreted by Me EKG shows normal: sinus rhythm, axis (left axis deviation), intervals, QRS complexes (right bundle branch block), ST-T waves (nonspecific ST-T waves) Rate: normal - EKG Data When compared to previous EKG there are: changes noted (previous EKG did not show right bundle branch block) Interpretation: other (sinus rhythm, left axis deviation, right bundle branch block, nonspecific ST-T waves) - Radiology Data Radiology results: report reviewed, image reviewed interpreted by me: Chest x-ray does not show any acute process. There are no pleural effusions, obvious pneumonia and there is no pneumothorax. Abdominal x-ray shows nonspecific bowel gas. CT ABDOMEN AND PELVIS WITHOUT CONTRAST HISTORY: Abdominal pain COMPARISON: 05/21/2018 TECHNIQUE: Axial CT images were obtained through the abdomen and pelvis without IV contrast. Sagittal and coronal reformatted images. All CT scans at this location are performed using CT dose reduction for ALARA by means of automated exposure control. FINDINGS: CT ABDOMEN: Lung Bases: Clear. Liver: No significant abnormality. Biliary: No significant abnormality. Spleen: No significant abnormality. Unenlarged. Pancreas: No significant abnormality. Adrenals: Both adrenal glands appear diffusely thickened without discrete nodule. This could represent adrenal hyperplasia. Kidneys: No significant abnormality. Lymphatics: No lymphadenopathy. Vasculature: Moderate diffuse calcific plaques are identified throughout the abdominal aorta and major branches. Bilateral common iliac stents are in place. Bowel/Peritoneum: A few mildly dilated loops of proximal small bowel are identified measuring up to 3.5 cm in diameter. Distal small bowel loops are decompressed. There is moderate to large fecal material throughout the colon. Minimal circumferential thickening of the right hemicolon is suggested. No evidence for pneumatosis or focal inflammation. I believe I see the appendix which is retrocecal and unremarkable. Trace ascites is noted in the mesentery and pelvis. No free air or abscess. CT PELVIS: : Hysterectomy changes are suspected. No adnexal mass is appreciated. Osseous Structures: Osteopenia and moderate degenerative changes in the thoracolumbar spine. Mild lumbar spondylosis. Additional Findings: None IMPRESSION: A few mildly dilated loops of proximal small bowel have developed since 05/11/2018 concerning for a partial small bowel obstruction. See above. Trace ascites. CT head/brain wo con INDICATION / CLINICAL INFORMATION: 67 years Female; AMS. TECHNIQUE: Routine CT head without contrast. All CT scans at this location are performed using CT dose reduction for ALARA by means of automated exposure control. Motion artifact COMPARISON: 05/21/2018 FINDINGS: BRAIN / INTRACRANIAL CONTENTS: No acute hemorrhage, mass effect, midline shift, hydrocephalus, or acute, large territorial infarct. No chronic infarct or focal atrophy. Normal brain volume and ventricular/sulcal size for age. No significant white matter abnormality. CRANIOCERVICAL JUNCTION: No significant abnormality. ORBITS: No significant abnormality of visualized orbits. SINUSES / MASTOIDS: No significant abnormality of the visualized paranasal sinuses or mastoid air cells. ADDITIONAL FINDINGS: Atherosclerotic disease is seen in the anterior and posterior circulation. IMPRESSION: 1. No focal mass, hemorrhage, hydrocephalus, or acute, large territorial i nfarct. - Medical Decision Making This patient presented via EMS and was made a code sepsis secondary to some hypotension in route, along with some mild tachycardia and fever. She received some IV fluid resuscitation. Blood and urine cultures were sent. Urinalysis showed a significant urinary tract infection. The patient was given a dose of Rocephin. The patient's CBC came back showing a significant leukocytosis of about 32,000. At first, the metabolic panel showed severe hyperkalemia of 8.7. This was repeated and it still came back at 8.1 and there is no hemolysis. Nephrology was contacted in consultation and the patient was given sodium bicarbonate, albuterol, insulin, Kayexalate and calcium gluconate. The patient was also found to have some acute on chronic renal failure. She has a lactic acidosis. There is a elevated ammonia level and therefore she was given some lactulose. The patient's confused and her lucidity waxes and wanes. CT of the head without contrast did not show any bleed, shift, mass, ischemia or any other acute process. CT of the abdomen and pelvis without contrast shows concern for a partial small bowel obstruction. Gen. surgery was contacted and consulted and a nasogastric tube was placed to low intermittent suction. The potassium was repeated a few hours later and did not have any improvement despite the hyperkalemia cocktail and sodium bicarbonate. For this reason, vascular surgery was contacted to place a Vas-Cath. The patient will be admitted to the ICU and has been accepted for admission by the hospitalist, Dr. Kelsey. - Differential Diagnosis sepsis, hyperkalemia, bowel obstruction, colitis, CVA, encephalopathy Critical Care Time: Yes Critical care time in (mins) excluding proc time.: 45 Critical care attestation.: If time is entered above; I have spent that time in minutes in the direct care of this critically ill patient, excluding procedure time. Critical care time was spent on this patient during her initial evaluation, multiple re- evaluations, ordering and interpretation of labs and imaging, discussion with the journalism instructor, discussion with the general surgeon, discussion with the vascu lar surgeon, ordering of multiple medications. Critical Care Time: 45 minutes ED Disposition Clinical Impression: Acute hyperkalemia, Partial small bowel obstruction, Lactic acidosis, Toxic metabolic encephalopathy Sepsis Qualifiers: Sepsis type: sepsis due to unspecified organism Sepsis acute organ dysfunction status: unspecified Qualified Code(s): A41.9 - Sepsis, unspecified organism Acute on chronic renal failure Qualifiers: Acute renal failure type: unspecified Chronic kidney disease stage: unspecified stage Qualified Code(s): N17.9 - Acute kidney failure, unspecified UTI (urinary tract infection) Qualifiers: Urinary tract infection type: acute cystitis Hematuria presence: with hematuria Qualified Code(s): N30.01 - Acute cystitis with hematuria Disposition: OP ADMIT IP TO THIS HOSP Is pt being admited?: Yes Condition: Serious Time of Disposition: 14:13
[2018-10-13] MEDS ORDERED: TYLENOL PO ONE (08:40)
[2018-10-13 08:45] LABS: Bacteria,Urine 2+ /HPF (Negative); Bilirubin,Urine NEG (Negative); Blood,Urine NEG (Negative); Color,Urine Yellow (Yellow); Mucus,Urine FEW /HPF; Urobilinogen,Urine < 2.0 mg/dL (<2.0)
[2018-10-13 08:49] LABS: Protein,Urine >500 mg/dL (Negative); WBC,Urine > 182.0 /HPF (0.0-6.0)
[2018-10-13] MEDS ORDERED: ROCEPHIN/NS 1 GM/50 ML 1 GM/50 ML BAG IV ONE (09:02)
--- NOTE | 2018-10-13 09:19 | XRay Report ---
CHEST 1 VIEW INDICATION: Altered mental status. Abdominal pain COMPARISON: 05/23/2018 chest x-ray report FINDINGS: Support devices: None. Heart: Within normal limits. Lungs/Pleura: No acute air space or interstitial disease. Additional findings: None. IMPRESSION: No acute findings. ABDOMEN 2 VIEW(S) INDICATION / CLINICAL INFORMATION: Abdominal pain. COMPARISON: None available. FINDINGS: TUBES / LINES: None. BOWEL GAS PATTERN: No significant abnormality. No evidence for dilated bowel, fluid levels or patholo gic calcifications. FREE AIR / EXTRALUMINAL GAS: None seen. ADDITIONAL FINDINGS: No significant additional findings. IMPRESSION: No significant abnormality. Signer Name: Stanford Feng Jr, MD Signed: 10/13/2018 9:15 AM Workstation Name: [id number]
[2018-10-13 09:23] LABS: Hematocrit 44.2 % (30.3-42.9); Hemoglobin 14.3 gm/dl (10.1-14.3); Mean Corpuscular HGB Conc 32 % (30-34); Mean Corpuscular Volume 102 fl (79-97); Platelet Count 288 K/mm3 (140-440); Red Blood Count 4.32 M/mm3 (3.65-5.03); Red Cell Distribution Width 14.7 % (13.2-15.2)
[2018-10-13 10:05] LABS: Albumin 3.2 g/dL (3.9-5); Calcium 9.4 mg/dL (8.4-10.2)
[2018-10-13] MEDS ORDERED: CEPHULAC PO ONE (10:10)
[2018-10-13 10:20] LABS: Basophils % (Manual) 0 % (0.0-1.8); Eosinophils % (Manual) 0 % (0.0-4.3); Total Cells Counted 100
[2018-10-13 10:21] LABS: Anisocytosis 1+; Platelet Estimate Consistent w Auto
[2018-10-13 11:38] LABS: Calcium 8.5 mg/dL (8.4-10.2)
[2018-10-13] MEDS ORDERED: KIONEX PO ONE (11:48)
[2018-10-13] MEDS ORDERED: HumuLIN R IV ONE (11:49)
[2018-10-13] MEDS ORDERED: D50W (25GM) Syringe IV ONE (11:49)
[2018-10-13] MEDS ORDERED: PROVENTIL IH ONE (11:52)
[2018-10-13] MEDS ORDERED: LASIX IV ONE (11:53)
--- NOTE | 2018-10-13 12:32 | Consultation ---
History of Present Illness - Reason for Consult acute renal failure - History of Present Illness unable to provide history, per chart, she was brought by EMS after was found down, her labs were significant for acute kidney failure and hyperkalemia and was started on IVF bolus, with lasix, D50W amp and IV insulin, katexelate and sodium bicarb amp, renal consult was requested for possible need for HD Past History Past Medical History: hypertension, stroke Medications and Allergies Allergies Allergy/AdvReac Type Severity Reaction Status Date / Time Sulfa (Sulfonamide Allergy Rash Verified 05/09/18 17:10 Antibiotics) Home Medications Medication Instructions Recorded Confirmed Last Taken Type Gabapentin [Neurontin] 400 mg PO Q8HR 02/21/18 05/10/18 Unknown History amLODIPine [Norvasc] 10 mg PO DAILY 02/21/18 05/10/18 Unknown History Diazepam [Valium] 10 mg PO BID 05/10/18 05/10/18 Unknown History Ipratropium/Albuter (Nf) 3 mcg IH TID 05/10/18 05/10/18 Unknown History [Combivent Inhaler] Lisinopril [Zestril] 20 mg PO DAILY 05/10/18 05/10/18 Unknown History QUEtiapine [SEROquel] 100 mg PO HS 05/10/18 05/10/18 Unknown History metFORMIN 500 mg PO DAILY 05/10/18 05/10/18 Unknown History Pantoprazole [Protonix TAB] 40 mg PO BID #60 tablet 05/14/18 Unknown Rx Polyethylene Glycol 3350 [Miralax 17 gm PO QDAY PRN #30 powd.pack 05/14/18 Unknown Rx 3350] Ferrous Sulfate [Feosol 325 MG tab] 325 mg PO BID #60 tablet 05/24/18 Unknown Rx traMADol [Ultram 50 MG tab] 50 mg PO Q8H PRN #20 tablet 05/24/18 Unknown Rx Ipratropium/Albuterol Sulfate 1 ampul IH TIDRT ampul.neb 05/27/18 Unknown Rx [DUONEB *Not for PRN Use*] Lisinopril [Zestril TAB] 20 mg PO BID #60 tablet 05/27/18 Unknown Rx Ondansetron [Zofran INJ] 4 mg IV Q8H PRN vial 05/27/18 Unknown Rx Sennosides/Docusate [Senokot S] 2 tab PO Q12H tablet 05/27/18 Unknown Rx Sodium Bicarbonate 650 mg PO BID tablet 05/27/18 Unknown Rx Sucralfate [Carafate] 1 gm PO ACHS 30 Days tablet 05/27/18 Unknown Rx Zolpidem [Ambien] 5 mg PO QHS PRN tablet 05/27/18 Unknown Rx dilTIAZem [Cardizem] 60 mg PO Q6HR #30 tablet 05/27/18 Unknown Rx Active Meds: Active Medications Sodium Bicarbonate 150 meq/ (Dextrose) 1,150 mls @ 100 mls/hr IV DIRECT ONE Stop: 10/13/18 23:53 Review of Systems ROS unobtainable: due to mental status Exam - Vital Signs Vital signs: Vital Signs Temp Pulse Resp BP Pulse Ox 102 F H 102 H 16 131/49 96 10/13/18 08:35 10/13/18 08:35 10/13/18 08:35 10/13/18 08:35 10/13/18 08:35 - General Appearance General appearance: well-developed, well-nourished EENT: ATNC, PERRL, mucous membranes dry Neck: Present: neck supple Respiratory: Clear to Ascultation Heart: regular, S1S2 Gastrointestinal: Present: normoactive bowel sounds. Absent: tenderness, distended Integumentary: no rash, warm and dry Neurologic: no focal deficit Musculoskeletal: Present: other (no edema in BLE) Psychiatric: cooperative Results - Lab Results 10/13/18 09:17 10/13/18 11:09 Most recent lab results Calcium 8.5 mg/dL (8.4-10.2) 10/13/18 11:09 Assessment and Plan acute kidney injury, likely ischemic ATN, baseline Cr was normal hyperkalemia secondary to ARF and lisinopril AG metabolic acidosis secondary to ARF and lactic acidosis urospesis metabolic encephalopathy - hyperkalemia tx ordered in ED, will repeat BMP stat, if K remains elevated will need to consult vascular for vasctah placement for emergent HD - will start bicarb gtt - urine lytes, eos, protein, renal US and CK ordered - strict I&O - daily weight - renally dose meds - avoid nephrotoxins Eric Bae MD [phone]
--- NOTE | 2018-10-13 12:41 | Cat Scan Report ---
CT ABDOMEN AND PELVIS WITHOUT CONTRAST HISTORY: Abdominal pain COMPARISON: 05/21/2018 TECHNIQUE: Axial CT images were obtained through the abdomen and pelvis without IV contrast. Sagittal and coronal reformatted images. All CT scans at this location are performed using CT dose reduction for ALARA by means of automated exposure control. FINDINGS: CT ABDOMEN: Lung Bases: Clear. Liver: No significant abnormality. Biliary: No significant abnormality. Spleen: No significant abnormality. Unenlarged. Pancreas: No significant abnormality. Adrenals: Both adrenal glands appear diffusely thickened without discrete nodule. This could represen t adrenal hyperplasia. Kidneys: No significant abnormality. Lymphatics: No lymphadenopathy. Vasculature: Moderate diffuse calcific plaques are identified throughout the abdominal aorta and mague r branches. Bilateral common iliac stents are in place. Bowel/Peritoneum: A few mildly dilated loops of proximal small bowel are identified measuring up to 3 .5 cm in diameter. Distal small bowel loops are decompressed. There is moderate to large fecal materi al throughout the colon. Minimal circumferential thickening of the right hemicolon is suggested. No e vidence for pneumatosis or focal inflammation. I believe I see the appendix which is retrocecal and u nremarkable. Trace ascites is noted in the mesentery and pelvis. No free air or abscess. CT PELVIS: : Hysterectomy changes are suspected. No adnexal mass is appreciated. Osseous Structures: Osteopenia and moderate degenerative changes in the thoracolumbar spine. Mild lum bar spondylosis. Additional Findings: None IMPRESSION: A few mildly dilated loops of proximal small bowel have developed since 05/11/2018 concerning for a par tial small bowel obstruction. See above. Trace ascites. Signer Name: Stanford Feng Jr, MD Signed: 10/13/2018 12:37 PM Workstation Name: [id number]
[2018-10-13] MEDS ORDERED: CALCIUM GLUCONATE 1,000 MG in NACL 0.9% 100 ML IV ONE (13:00)
--- NOTE | 2018-10-13 13:03 | Cat Scan Report ---
CT head/brain wo con INDICATION / CLINICAL INFORMATION: 67 years Female; AMS. TECHNIQUE: Routine CT head without contrast. All CT scans at this location are performed using CT dos e reduction for ALARA by means of automated exposure control. Motion artifact COMPARISON: 05/21/2018 FINDINGS: BRAIN / INTRACRANIAL CONTENTS: No acute hemorrhage, mass effect, midline shift, hydrocephalus, or acu te, large territorial infarct. No chronic infarct or focal atrophy. Normal brain volume and ventricul ar/sulcal size for age. No significant white matter abnormality. CRANIOCERVICAL JUNCTION: No significant abnormality. ORBITS: No significant abnormality of visualized orbits. SINUSES / MASTOIDS: No significant abnormality of the visualized paranasal sinuses or mastoid air michelle ls. ADDITIONAL FINDINGS: Atherosclerotic disease is seen in the anterior and posterior circulation. IMPRESSION: 1. No focal mass, hemorrhage, hydrocephalus, or acute, large territorial infarct. Signer Name: Jean Watters MD, III Signed: 10/13/2018 12:58 PM Workstation Name: [id number]
[2018-10-13] MEDS ORDERED: SODIUM BICARBONATE 150 MEQ in D5W 1,000 ML IV ONE (13:30)
--- NOTE | 2018-10-13 13:37 | Consultation ---
History of Present Illness Consult date: 10/13/18 Reason for consult: abdominal pain Chief complaint: abdominal pain - History of present illness History of present illness: 67 yo F with hx of CVA, HTN presents to ER after neighbors found her with altere d mental status at home. The patient is a very poor historian. Per ER records, the patient was complaining of abdominal pain. The patient states her pain is "all over" and hurts more when she moves a certain way. She denies nausea/vomiting. She does not know how long she has been having the pain but states she has had pain like this before. She is passing flatus but does not remember her last BM. She states she has to take medication to help her have BMs. She smokes 1 PPD. She does not remember her medical and surgical history so this is obtained from the chart and prior hospital visits. She states she does not drink etoh. Pt recently admitted in May for anemia and found to have bleeding duodenal ulcer. Past History Past Medical History: anemia, CAD, GERD (duodenal ulcer), hypertension, PVD, stroke, other (chronic renal insufficiency) Past Surgical History: hysterectomy, Other (bilateral iliac stents, amp of left 3rd toe) Social history: other (unknown) Family history: other (unknown) Medications and Allergies Allergies Allergy/AdvReac Type Severity Reaction Status Date / Time Sulfa (Sulfonamide Allergy Rash Verified 05/09/18 17:10 Antibiotics) Home Medications Medication Instructions Recorded Confirmed Last Taken Type Gabapentin [Neurontin] 400 mg PO Q8HR 02/21/18 05/10/18 Unknown History amLODIPine [Norvasc] 10 mg PO DAILY 02/21/18 05/10/18 Unknown History Diazepam [Valium] 10 mg PO BID 05/10/18 05/10/18 Unknown History Ipratropium/Albuter (Nf) 3 mcg IH TID 05/10/18 05/10/18 Unknown History [Combivent Inhaler] Lisinopril [Zestril] 20 mg PO DAILY 05/10/18 05/10/18 Unknown History QUEtiapine [SEROquel] 100 mg PO HS 05/10/18 05/10/18 Unknown History metFORMIN 500 mg PO DAILY 05/10/18 05/10/18 Unknown History Pantoprazole [Protonix TAB] 40 mg PO BID #60 tablet 05/14/18 Unknown Rx Polyethylene Glycol 3350 [Miralax 17 gm PO QDAY PRN #30 powd.pack 05/14/18 Unknown Rx 3350] Ferrous Sulfate [Feosol 325 MG tab] 325 mg PO BID #60 tablet 05/24/18 Unknown Rx traMADol [Ultram 50 MG tab] 50 mg PO Q8H PRN #20 tablet 05/24/18 Unknown Rx Ipratropium/Albuterol Sulfate 1 ampul IH TIDRT ampul.neb 05/27/18 Unknown Rx [DUONEB *Not for PRN Use*] Lisinopril [Zestril TAB] 20 mg PO BID #60 tablet 05/27/18 Unknown Rx Ondansetron [Zofran INJ] 4 mg IV Q8H PRN vial 05/27/18 Unknown Rx Sennosides/Docusate [Senokot S] 2 tab PO Q12H tablet 05/27/18 Unknown Rx Sodium Bicarbonate 650 mg PO BID tablet 05/27/18 Unknown Rx Sucralfate [Carafate] 1 gm PO ACHS 30 Days tablet 05/27/18 Unknown Rx Zolpidem [Ambien] 5 mg PO QHS PRN tablet 05/27/18 Unknown Rx dilTIAZem [Cardizem] 60 mg PO Q6HR #30 tablet 05/27/18 Unknown Rx Active Meds: Active Medications Sodium Bicarbonate 150 meq/ (Dextrose) 1,150 mls @ 100 mls/hr IV DIRECT ONE Stop: 10/14/18 00:59 Last Admin: 10/13/18 13:06 Dose: 100 mls/hr Documented by: Review of Systems ROS unobtainable: due to mental status Exam Vital Signs Temp Pulse Resp BP Pulse Ox 102 F H 102 H 16 131/49 96 10/13/18 08:35 10/13/18 08:35 10/13/18 08:35 10/13/18 08:35 10/13/18 08:35 Narrative exam: Gen: Awake and alert. Confused. NAD. Disheveled ENT; no scleral icterus or conjunctival pallor CV: s1, S2+, tachycardic Resp: tachypneic Abd: soft, mildly distended, generalized TTP. no r/r/g Ext: no c/c/e Results - Labs 10/13/18 09:17 10/13/18 12:30 Abnormal lab results 10/13/18 10/13/18 10/13/18 Range/Units 08:32 08:36 09:17 WBC 31.8 H (4.5-11.0) K/mm3 Hct 44.2 H (30.3-42.9) % MCV 102 H (79-97) fl MCH 33 H (28-32) pg Seg Neuts % (Manual) 83.0 H (40.0-70.0) % Lymphocytes % (Manual) 3.0 L (13.4-35.0) % Monocytes % (Manual) 10.0 H (0.0-7.3) % Seg Neutrophils # Man 26.4 H (1.8-7.7) K/mm3 Lymphocytes # (Manual) 1.0 L (1.2-5.4) K/mm3 Monocytes # (Manual) 3.2 H (0.0-0.8) K/mm3 Potassium (3.6-5.0) mmol/L Chloride (98-107) mmol/L Carbon Dioxide (22-30) mmol/L BUN (7-17) mg/dL Creatinine (0.7-1.2) mg/dL Glucose (65-100) mg/dL POC Glucose 281 H (70-105) Lactic Acid (0.7-2.0) mmol/L AST (5-40) units/L Alkaline Phosphatase (35-129) units/L Ammonia (25-60) umol/L Total Creatine Kinase (30-135) units/L Total Protein (6.3-8.2) g/dL Albumin (3.9-5) g/dL Urine WBC (Auto) > 182.0 H (0.0-6.0) /HPF 10/13/18 10/13/18 10/13/18 Range/Units 09:17 09:17 11:09 WBC (4.5-11.0) K/mm3 Hct (30.3-42.9) % MCV (79-97) fl MCH (28-32) pg Seg Neuts % (Manual) (40.0-70.0) % Lymphocytes % (Manual) (13.4-35.0) % Monocytes % (Manual) (0.0-7.3) % Seg Neutrophils # Man (1.8-7.7) K/mm3 Lymphocytes # (Manual) (1.2-5.4) K/mm3 Monocytes # (Manual) (0.0-0.8) K/mm3 Potassium 8.7 H* (3.6-5.0) mmol/L Chloride (98-107) mmol/L Carbon Dioxide 8 L* (22-30) mmol/L BUN 31 H (7-17) mg/dL Creatinine 3.2 H (0.7-1.2) mg/dL Glucose 264 H (65-100) mg/dL POC Glucose (70-105) Lactic Acid 4.90 H* (0.7-2.0) mmol/L AST 67 H (5-40) units/L Alkaline Phosphatase 268 H (35-129) units/L Ammonia 72.0 H (25-60) umol/L Total Creatine Kinase (30-135) units/L Total Protein (6.3-8.2) g/dL Albumin 3.2 L (3.9-5) g/dL Urine WBC (Auto) (0.0-6.0) /HPF 10/13/18 10/13/18 10/13/18 Range/Units 11:09 11:47 12:20 WBC (4.5-11.0) K/mm3 Hct (30.3-42.9) % MCV (79-97) fl MCH (28-32) pg Seg Neuts % (Manual) (40.0-70.0) % Lymphocytes % (Manual) (13.4-35.0) % Monocytes % (Manual) (0.0-7.3) % Seg Neutrophils # Man (1.8-7.7) K/mm3 Lymphocytes # (Manual) (1.2-5.4) K/mm3 Monocytes # (Manual) (0.0-0.8) K/mm3 Potassium 8.1 H* (3.6-5.0) mmol/L Chloride 111.0 H (98-107) mmol/L Carbon Dioxide 12 L (22-30) mmol/L BUN 31 H (7-17) mg/dL Creatinine 2.9 H (0.7-1.2) mg/dL Glucose 225 H (65-100) mg/dL POC Glucose 225 H (70-105) Lactic Acid 5.20 H* (0.7-2.0) mmol/L AST 73 H (5-40) units/L Alkaline Phosphatase 268 H (35-129) units/L Ammonia (25-60) umol/L Total Creatine Kinase (30-135) units/L Total Protein 6.0 L (6.3-8.2) g/dL Albumin 3.0 L (3.9-5) g/dL Urine WBC (Auto) (0.0-6.0) /HPF 10/13/18 Range/Units 12:30 WBC (4.5-11.0) K/mm3 Hct (30.3-42.9) % MCV (79-97) fl MCH (28-32) pg Seg Neuts % (Manual) (40.0-70.0) % Lymphocytes % (Manual) (13.4-35.0) % Monocytes % (Manual) (0.0-7.3) % Seg Neutrophils # Man (1.8-7.7) K/mm3 Lymphocytes # (Manual) (1.2-5.4) K/mm3 Monocytes # (Manual) (0.0-0.8) K/mm3 Potassium (3.6-5.0) mmol/L Chloride (98-107) mmol/L Carbon Dioxide (22-30) mmol/L BUN (7-17) mg/dL Creatinine (0.7-1.2) mg/dL Glucose (65-100) mg/dL POC Glucose (70-105) Lactic Acid (0.7-2.0) mmol/L AST (5-40) units/L Alkaline Phosphatase (35-129) units/L Ammonia (25-60) umol/L Total Creatine Kinase 5299 H (30-135) units/L Total Protein (6.3-8.2) g/dL Albumin (3.9-5) g/dL Urine WBC (Auto) (0.0-6.0) /HPF Diabetes panel 10/13/18 10/13/18 Range/Units 09:17 11:09 Sodium 138 138 (137-145) mmol/L Potassium 8.7 H* 8.1 H* (3.6-5.0) mmol/L Chloride 106.3 111.0 H (98-107) mmol/L Carbon Dioxide 8 L* 12 L (22-30) mmol/L BUN 31 H 31 H (7-17) mg/dL Creatinine 3.2 H 2.9 H (0.7-1.2) mg/dL Glucose 264 H 225 H (65-100) mg/dL Calcium 9.4 8.5 (8.4-10.2) mg/dL AST 67 H 73 H (5-40) units/L ALT 18 18 (7-56) units/L Alkaline Phosphatase 268 H 268 H (35-129) units/L Total Protein 6.5 6.0 L (6.3-8.2) g/dL Albumin 3.2 L 3.0 L (3.9-5) g/dL Thyroid panel 10/13/18 Range/Units 09:17 TSH 2.920 (0.270-4.200) mlU/mL Calcium panel 10/13/18 10/13/18 Range/Units 09:17 11:09 Calcium 9.4 8.5 (8.4-10.2) mg/dL Albumin 3.2 L 3.0 L (3.9-5) g/dL Pituitary panel 10/13/18 10/13/18 10/13/18 Range/Units 09:17 09:17 11:09 Sodium 138 138 (137-145) mmol/L Potassium 8.7 H* 8.1 H* (3.6-5.0) mmol/L Chloride 106.3 111.0 H (98-107) mmol/L Carbon Dioxide 8 L* 12 L (22-30) mmol/L BUN 31 H 31 H (7-17) mg/dL Creatinine 3.2 H 2.9 H (0.7-1.2) mg/dL Glucose 264 H 225 H (65-100) mg/dL Calcium 9.4 8.5 (8.4-10.2) mg/dL TSH 2.920 (0.270-4.200) mlU/mL Adrenal panel 10/13/18 10/13/18 Range/Units 09:17 11:09 Sodium 138 138 (137-145) mmol/L Potassium 8.7 H* 8.1 H* (3.6-5.0) mmol/L Chloride 106.3 111.0 H (98-107) mmol/L Carbon Dioxide 8 L* 12 L (22-30) mmol/L BUN 31 H 31 H (7-17) mg/dL Creatinine 3.2 H 2.9 H (0.7-1.2) mg/dL Glucose 264 H 225 H (65-100) mg/dL Calcium 9.4 8.5 (8.4-10.2) mg/dL Total Bilirubin 0.30 0.20 (0.1-1.2) mg/dL AST 67 H 73 H (5-40) units/L ALT 18 18 (7-56) units/L Alkaline Phosphatase 268 H 268 H (35-129) units/L Total Protein 6.5 6.0 L (6.3-8.2) g/dL Albumin 3.2 L 3.0 L (3.9-5) g/dL - Imaging Abdominal x-ray: report reviewed, image reviewed CT scan - abdomen: report reviewed, image reviewed CT scan - pelvis: report reviewed, image reviewed Assessment and Plan 67 yo F with 1. abdominal pain - CT scan with pSBO, fecal retention. Pt with hx of duodenal ulcer 2. sepsis 3. UTI 4. hyperkalemia 5. acute renal failure 6. AMS Plan: 1. Admit to hospitalist service 2. NPO 3. IVF 4. place NGT and keep to LIWS - monitor output 5. PPI 6. dulcolax suppository - monitor for bowel function 7. repeat abdominal xray in am 8. IV abx per 1' team 9. trend labs 10. nephro on board Thank you, please call with questions.
[2018-10-13 13:53] LABS: Calcium 8.5 mg/dL (8.4-10.2)
[2018-10-13] MEDS ORDERED: DULCOLAX PR ONE ×2 (14:10→14:46)
[2018-10-13] MEDS: PROTONIX IV SCH (14:46)
[2018-10-13] MEDS ORDERED: PROTONIX IV ONE (14:51)
--- NOTE | 2018-10-13 15:26 | Consultation ---
History of Present Illness - Reason for Consult Consult date: 10/13/18 Hyperkalemia - History of Present Illness 67-year-old female who is unable to provide history, per chart, she was brought by EMS after was found down, her labs were significant for acute kidney failure and hyperkalemia and was started on IVF bolus, with lasix, D50W amp and IV insulin, katexelate and sodium bicarb amp, renal consult was requested for possible need for HD Vascular consulted for hyperkalemia. Past History Past Medical History: anemia, CAD, GERD (duodenal ulcer), hypertension, PVD, stroke, other (chronic renal insufficiency) Past Surgical History: hysterectomy, Other (bilateral iliac stents, amp of left 3rd toe) Social history: other (unknown) Family history: other (unknown) Medications and Allergies Allergies Allergy/AdvReac Type Severity Reaction Status Date / Time Sulfa (Sulfonamide Allergy Rash Verified 05/09/18 17:10 Antibiotics) Home Medications Medication Instructions Recorded Confirmed Last Taken Type amLODIPine [Norvasc] 10 mg PO DAILY 02/21/18 10/13/18 10/12/18 History Lisinopril [Zestril] 10 mg PO DAILY 05/10/18 10/13/18 10/12/18 History Pantoprazole [Protonix TAB] 40 mg PO BID #60 tablet 05/14/18 10/13/18 10/12/18 Rx traMADol [Ultram 50 MG tab] 50 mg PO Q8H PRN #20 tablet 05/24/18 10/13/18 10/12/18 Rx Amitriptyline [Elavil] 25 mg PO QHS 10/13/18 10/13/18 10/12/18 History Bimatoprost [Lumigan 0.01%] 1 drop OP QPM 10/13/18 10/13/18 10/12/18 History Clopidogrel [Plavix] 75 mg PO QDAY 10/13/18 10/13/18 10/12/18 History Cyclobenzaprine [Flexeril 10 MG 10 mg PO BID 10/13/18 10/13/18 10/12/18 History TAB] Gabapentin [Neurontin] 600 mg PO Q8H 10/13/18 10/13/18 10/12/18 History metFORMIN [Glucophage] 500 mg PO QDAY 10/13/18 10/13/1819 History Active Meds: Active Medications Sodium Bicarbonate 150 meq/ (Dextrose) 1,150 mls @ 100 mls/hr IV DIRECT ONE Stop: 10/14/18 00:59 Last Admin: 10/13/18 13:06 Dose: 100 mls/hr Documented by: Pantoprazole Sodium (Protonix) 40 mg IV DAILY LUDA Last Admin: 10/13/18 14:46 Dose: 40 mg Documented by: Review of Systems ROS unobtainable: due to mental status Exam - Constitutional Vitals: Temp Pulse Resp BP Pulse Ox 99 F 108 H 16 124/78 96 10/13/18 10:12 10/13/18 14:38 10/13/18 14:38 10/13/18 14:38 10/13/18 14:38 General appearance: Present: other (confused) - EENT ENT: hearing intact - Respiratory Respiratory effort: labored - Psychiatric Psychiatric: other (confused) Results - Labs CBC & Chem 7: 10/13/18 09:17 10/13/18 12:30 Labs: Abnormal lab results 10/13/18 10/13/18 10/13/18 Range/Units 08:32 08:36 09:17 WBC 31.8 H (4.5-11.0) K/mm3 Hct 44.2 H (30.3-42.9) % MCV 102 H (79-97) fl MCH 33 H (28-32) pg Seg Neuts % (Manual) 83.0 H (40.0-70.0) % Lymphocytes % (Manual) 3.0 L (13.4-35.0) % Monocytes % (Manual) 10.0 H (0.0-7.3) % Seg Neutrophils # Man 26.4 H (1.8-7.7) K/mm3 Lymphocytes # (Manual) 1.0 L (1.2-5.4) K/mm3 Monocytes # (Manual) 3.2 H (0.0-0.8) K/mm3 Potassium (3.6-5.0) mmol/L Chloride (98-107) mmol/L Carbon Dioxide (22-30) mmol/L BUN (7-17) mg/dL Creatinine (0.7-1.2) mg/dL Glucose (65-100) mg/dL POC Glucose 281 H (70-105) Lactic Acid (0.7-2.0) mmol/L AST (5-40) units/L Alkaline Phosphatase (35-129) units/L Ammonia (25-60) umol/L Total Creatine Kinase (30-135) units/L Total Protein (6.3-8.2) g/dL Albumin (3.9-5) g/dL Urine WBC (Auto) > 182.0 H (0.0-6.0) /HPF 10/13/18 10/13/18 10/13/18 Range/Units 09:17 09:17 11:09 WBC (4.5-11.0) K/mm3 Hct (30.3-42.9) % MCV (79-97) fl MCH (28-32) pg Seg Neuts % (Manual) (40.0-70.0) % Lymphocytes % (Manual) (13.4-35.0) % Monocytes % (Manual) (0.0-7.3) % Seg Neutrophils # Man (1.8-7.7) K/mm3 Lymphocytes # (Manual) (1.2-5.4) K/mm3 Monocytes # (Manual) (0.0-0.8) K/mm3 Potassium 8.7 H* (3.6-5.0) mmol/L Chloride (98-107) mmol/L Carbon Dioxide 8 L* (22-30) mmol/L BUN 31 H (7-17) mg/dL Creatinine 3.2 H (0.7-1.2) mg/dL Glucose 264 H (65-100) mg/dL POC Glucose (70-105) Lactic Acid 4.90 H* (0.7-2.0) mmol/L AST 67 H (5-40) units/L Alkaline Phosphatase 268 H (35-129) units/L Ammonia 72.0 H (25-60) umol/L Total Creatine Kinase (30-135) units/L Total Protein (6.3-8.2) g/dL Albumin 3.2 L (3.9-5) g/dL Urine WBC (Auto) (0.0-6.0) /HPF 10/13/18 10/13/18 10/13/18 Range/Units 11:09 11:47 12:20 WBC (4.5-11.0) K/mm3 Hct (30.3-42.9) % MCV (79-97) fl MCH (28-32) pg Seg Neuts % (Manual) (40.0-70.0) % Lymphocytes % (Manual) (13.4-35.0) % Monocytes % (Manual) (0.0-7.3) % Seg Neutrophils # Man (1.8-7.7) K/mm3 Lymphocytes # (Manual) (1.2-5.4) K/mm3 Monocytes # (Manual) (0.0-0.8) K/mm3 Potassium 8.1 H* (3.6-5.0) mmol/L Chloride 111.0 H (98-107) mmol/L Carbon Dioxide 12 L (22-30) mmol/L BUN 31 H (7-17) mg/dL Creatinine 2.9 H (0.7-1.2) mg/dL Glucose 225 H (65-100) mg/dL POC Glucose 225 H (70-105) Lactic Acid 5.20 H* (0.7-2.0) mmol/L AST 73 H (5-40) units/L Alkaline Phosphatase 268 H (35-129) units/L Ammonia (25-60) umol/L Total Creatine Kinase (30-135) units/L Total Protein 6.0 L (6.3-8.2) g/dL Albumin 3.0 L (3.9-5) g/dL Urine WBC (Auto) (0.0-6.0) /HPF 10/13/18 10/13/18 Range/Units 12:30 12:30 WBC (4.5-11.0) K/mm3 Hct (30.3-42.9) % MCV (79-97) fl MCH (28-32) pg Seg Neuts % (Manual) (40.0-70.0) % Lymphocytes % (Manual) (13.4-35.0) % Monocytes % (Manual) (0.0-7.3) % Seg Neutrophils # Man (1.8-7.7) K/mm3 Lymphocytes # (Manual) (1.2-5.4) K/mm3 Monocytes # (Manual) (0.0-0.8) K/mm3 Potassium 8.1 H* (3.6-5.0) mmol/L Chloride 107.8 H (98-107) mmol/L Carbon Dioxide 11 L (22-30) mmol/L BUN 32 H (7-17) mg/dL Creatinine 2.9 H (0.7-1.2) mg/dL Glucose 329 H (65-100) mg/dL POC Glucose (70-105) Lactic Acid (0.7-2.0) mmol/L AST (5-40) units/L Alkaline Phosphatase (35-129) units/L Ammonia (25-60) umol/L Total Creatine Kinase 5299 H (30-135) units/L Total Protein (6.3-8.2) g/dL Albumin (3.9-5) g/dL Urine WBC (Auto) (0.0-6.0) /HPF Assessment and Plan 67-year-old female with multiple medical issues who presents with severe hyperkalemia and peaked T waves requiring emergent CT hemodialysis. Plan for Vas-Cath placement for emergency hemodialysis. 2 physician consent obtained due to lack of availability of family members.
[2018-10-13] MEDS ORDERED: ANCEF/STERILE WATER 2 GM/20 ML 2 GM/20 ML SYRINGE IV ONE (15:47)
[2018-10-13] MEDS ORDERED: HEPARIN/NS 5000 UNIT/500ML(CATH LAB) 500 ML IR ONE (15:48)
[2018-10-13] MEDS ORDERED: HEPARIN 10,000 UNITS/10 ML ONE ×2 (15:48→15:49)
[2018-10-13] MEDS ORDERED: NACL 0.9% 500 ML 500 ML ONE (15:49)
[2018-10-13] MEDS ORDERED: XYLOCAINE 1%/ EPI 1:100,000 INFILTRATI ONE (15:50)
[2018-10-13] MEDS ORDERED: NACL 0.9% 100 ML IV PRN (16:23)
--- NOTE | 2018-10-13 16:48 | Operative Report ---
Operative Report Operative Report: EXAM: 1. Ultrasound-guided puncture of the right internal jugular vein 2. Fluoroscopic-guided placement of a right internal jugular nontunneled noncuffed hemodialysis catheter. DATE: 10/13/18 INDICATION: Acute renal failure and hyperkalemia requiring hemodialysis. MEDICATIONS: Please see nursing report for full details. DEVICES: 15 cm dual lumen hemodialysis catheter PLASTIC PANEL INSTALLER: KATARZYNA ANNE MD CONTRAST: None PROCEDURE: The risks, benefits, and alternatives were discussed and 2 physician emergency consent was obtained. The patient was transported to the angiography suite in satisfactory/stable condition and was transported onto the angiography table. The patient's right internal jugular vein was assessed with ultrasound and determined to be patent prior to procedure. The patient was prepped and draped in a sterile fashion. The puncture site was anesthetized. The right internal jugular vein was patent on ultrasound. Under sonographic guidance, the right internal jugular vein was punctured with a 21-gauge micropuncture needle and a 0.018 inch wire was advanced through the needle. Needle was exchanged for transitional dilator. The inner dilator and wire was removed and a 0.035 inch wire was advanced through the transitional dilator into the inferior vena cava. Over the 0.035 inch wire, serial dilatation was performed. The catheter was advanced over the wire and positioned centrally under fluoroscopic guidance. 2-0 nylon suture was used to secure the catheter. The catheter was charged with heparin 1000 units per mL space. Sterile dressing and Biopatch applied. The patient was transferred from the angiography suite back to the floor in stable condition. FINDINGS: 1. Excellent flow was obtained through the dialysis catheter with 20 mL syringes. 2. The catheter tip is in the right atrium. IMPRESSION: 1. Successful sonographically and fluoroscopically guided placement of a right internal jugular nontunneled noncuffed hemodialysis catheter.
[2018-10-13 18:48] LABS: Hepatitis B Surface Antigen Non-Reactive (Negative); Hepatitis C Virus Antibody Reactive (NonReactive)
[2018-10-13] MEDS ORDERED: ZOFRAN IV PRN (19:41)
[2018-10-13] MEDS ORDERED: REGLAN IV PRN (19:41)
--- NOTE | 2018-10-13 19:52 | Ultrasound Report ---
ULTRASOUND RENAL INDICATION: renal failure. COMPARISON: No relevant prior imaging study available. FINDINGS: RIGHT KIDNEY: Size: 9.5 cm. Echogenicity: Normal. Cortical thickness: Normal. Stones: None. Hydronephrosis: None. Cyst or mass: None. LEFT KIDNEY: Size: 9.7 cm. Echogenicity: Normal. Cortical thickness: Normal. Stones: Small stone in lower pole collecting system. Hydronephrosis: None. Cyst or mass: None. Urinary Bladder: No significant abnormality. Free Fluid: None. Additional Findings: None. IMPRESSION 1. No acute sonographic abnormality of the kidneys. Signer Name: Catalino Izquierdo MD Signed: 10/13/2018 7:47 PM Workstation Name: [id number]
[2018-10-13] MEDS ORDERED: NACL 0.9% 1000 ML 1,000 ML IV SCH (20:00)
--- NOTE | 2018-10-13 20:06 | Event Note ---
Date: 10/13/18 See dictated history and physical in the reports Sepsis Acute encephalopathy Acute kidney injury secondary to ATN Hyperkalemia severe Small bowel obstruction Rhabdomyolysis Admission to ICU Prognosis guarded
[2018-10-13] MEDS ORDERED: MAXIPIME/NS 1 GM/100 ML 1 GM/100 ML BAG IV SCH ×2 (21:00→22:00)
[2018-10-13] MEDS ORDERED: VANCOMYCIN PHARMACY TO DOSE IV SCH (21:00)
[2018-10-13] MEDS ORDERED: VANCOMYCIN 1,500 MG in NACL 0.9% 500 ML 500 ML IV SCH (21:00)
[2018-10-13] MEDS ORDERED: PEPCID IV SCH (22:00)
[2018-10-14] MEDS: SODIUM CHLORIDE FLUSH SYRINGE 10 ML IV SCH ×3 (03:47→22:53)
[2018-10-14] MEDS: MORPHINE IV PRN ×2 (04:33→09:09)
[2018-10-14 05:16] LABS: Basophils # (Auto) 0.1 K/mm3 (0.0-0.1); Basophils % (Auto) 0.4 % (0.0-1.8); Eosinophils # (Auto) 0.1 K/mm3 (0.0-0.4); Eosinophils % (Auto) 0.4 % (0.0-4.3); Hematocrit 34.4 % (30.3-42.9); Lymphocytes # (Auto) 1.1 K/mm3 (1.2-5.4); Lymphocytes % (Auto) 6.4 % (13.4-35.0); Mean Corpuscular HGB Conc 35 % (30-34); Mean Corpuscular Volume 98 fl (79-97); Monocytes # (Auto) 0.7 K/mm3 (0.0-0.8); Monocytes % (Auto) 4.4 % (0.0-7.3); Platelet Count 199 K/mm3 (140-440); Red Blood Count 3.51 M/mm3 (3.65-5.03); Red Cell Distribution Width 14.2 % (13.2-15.2)
[2018-10-14 05:51] LABS: Calcium 7.6 mg/dL (8.4-10.2)
[2018-10-14] MEDS: HumaLOG SUB-Q SCH ×4 (06:11→23:37)
--- NOTE | 2018-10-14 06:42 | History and Physical Report ---
CHIEF COMPLAINT: 1. Altered mental status. 2. Abdominal pain. 3. Hypotension. HISTORY OF PRESENT ILLNESS: This is a 67-year-old female with multiple medical problems including cerebrovascular accident, hypertension, diabetes ____ GERD, renal insufficiency and COPD, brought in by EMS for altered sensorium. The patient was found altered at home. The patient is complaining of diffuse abdominal pain, but unable to give much history. The patient also confused. The patient has a history of COPD, very poor historian. The patient was admitted in May for a bleeding duodenal ulcer and anemia. Past medical history gathered from past medical records. The patient also saying that she has pain all over, apparently passing flatus, but does not remember her last bowel movement. Smokes about a pack a day. PAST SURGICAL HISTORY: Significant for breast surgery with a cyst removal. Amputated third toe of the left foot. SOCIAL HISTORY: Smokes over a pack a day. FAMILY HISTORY: Hypertension. CURRENT MEDICATIONS: Include amlodipine 10 mg once a day, lisinopril 10 mg once a day, Protonix 40 mg p.o. twice a day, tramadol 50 mg p.o. q.8 p.r.n., Plavix 75 daily, amitriptyline 25 mg at bedtime, Flexeril 10 mg t.i.d., Neurontin 600 mg p.o. q.8, metformin 500 mg p.o. daily. REVIEW OF SYSTEMS: Significant for severe altered sensorium and diffuse abdominal pain. No fever or chills. No shortness of breath. Generalized weakness present. A 14-point review of systems is done. Otherwise, negative. PHYSICAL EXAMINATION: GENERAL: Elderly female, cooperative but very poor historian. VITAL SIGNS: Blood pressure is 120/57, temperature is 99, heart rate is 128, respiratory rate is 33, initial sats were low, but improved to ____. HEENT: Dry mucous membranes. Pupils equal and reactive. NECK: Supple, no lymphadenopathy, no thyromegaly. LUNGS: Scattered rhonchi bilaterally. CARDIOVASCULAR: S1, S2 heard. No gallop, no murmur, no rub. Apical impulse in left fifth intercostal space and midclavicular line. ABDOMEN: Decreased bowel sounds but bowel sounds were present. Hernial orifices are normal. EXTREMITIES: Good pedal pulses. CENTRAL NERVOUS SYSTEM: Alert, but confused. Alert to person, not to time and place. Able to move all 4 extremities, but neuro exam could not be done because of her altered mental status. SKIN: Normal. LABORATORY DATA: Significant for white count of 31,800, H and H is 14.3 and 44.2, platelet count is 288,000. Sodium is 138, potassium is 8.1, BUN and creatinine is 31 and 2.9, chloride is 111, bicarb is 12, anion gap is 23, glucose is 225, A1c is 5.5, lactic acid is 5.2, calcium is 8.5, total bilirubin is 0.2, AST is 73, alkaline phosphatase is 268, ammonia level is 72, creatine kinase is 5299, troponin is 0.029, albumin is 3.0. Urine shows more than 182 white blood cells. Hep C is reactive. EKG shows sinus tachycardia, heart rate of 130 per minute. Abdominal CAT scan shows a few mildly dilated loops of proximal small bowel since 05/11/2018, concerning for partial small-bowel obstruction. Chest x-ray shows no acute findings. Abdominal x-ray shows no acute findings. Renal ultrasound shows no acute sonographic abnormality of the kidneys. EKG shows heart rate of 98 and right bundle branch block, ST elevation all over. ASSESSMENT AND PLAN: 1. Sepsis, given the high white count of 31,800 and high neutrophil count, the patient initiated on IV cefepime and IV vancomycin. Source of infection is probably from the kidneys and urinary tract. IV fluids for the time being. 2. Acute kidney injury secondary to acute tubular necrosis. Baseline creatinine is less from May. Acute kidney injury on top of chronic kidney disease. Nephrology consult requested, IV fluids, acute tubular necrosis. Renal ultrasound was normal. 3. Acute encephalopathy secondary to sepsis and acute renal failure. IV antibiotics and IV fluids and treat the renal failure. 4. Partial small-bowel obstruction. Surgery consult requested. The patient with NG tube to low Gomco suction. Evaluate regularly. 5. Hypertension, Catapres patch initiated. ____. 6. Type 2 diabetes. The patient is on metformin, metformin discontinued. Accu-Cheks a.c. and at bedtime q.6 and moderate sliding scale coverage. If necessary, high-dose sliding scale coverage. 7. Urinary tract infection. The patient was given ceftriaxone in the ER, the patient continued on cefepime and vancomycin. 8. Chronic obstructive pulmonary disease, DuoNeb initiated. 9. Deep venous thrombosis prophylaxis, heparin 5000 q. 12. 10. Hyperkalemia was treated aggressively. The patient also being taken for emergent hemodialysis. Calcium gluconate, sodium bicarbonate IV given. Dextrose and insulin given. Nephrology consulted. CRITICAL CARE STATEMENT: The high probability of a clinically significant sudden or life-threatening deterioration of the pulmonary, cardiac, renal symptoms required my full and direct attention, intervention, and personal management. The aggregate critical care time was 45 minutes. This time is in addition to time spent performing reported procedures, but includes the followin. Data review and interpretation. 2. The patient assessment and monitoring of vital signs. 3. Documentation. 4. Medication orders and management. JOB# [id number] VISHAL/ZAK RODRIGEZ
[2018-10-14] MEDS ORDERED: DUONEB *Not for PRN Use IH SCH (08:00)
--- NOTE | 2018-10-14 09:48 | Consultation ---
History of Present Illness Consult date: 10/14/18 Requesting physician: JEET DAVILA Past History Past Medical History: anemia, CAD, GERD (duodenal ulcer), hypertension, PVD, stroke, other (chronic renal insufficiency) Past Surgical History: hysterectomy, Other (bilateral iliac stents, amp of left 3rd toe) Social history: other (unknown) Family history: other (unknown) Medications and Allergies Allergies Allergy/AdvReac Type Severity Reaction Status Date / Time Sulfa (Sulfonamide Allergy Rash Verified 05/09/18 17:10 Antibiotics) Home Medications Medication Instructions Recorded Confirmed Last Taken Type amLODIPine [Norvasc] 10 mg PO DAILY 02/21/18 10/13/18 10/12/18 History Lisinopril [Zestril] 10 mg PO DAILY 05/10/18 10/13/18 10/12/18 History Pantoprazole [Protonix TAB] 40 mg PO BID #60 tablet 05/14/18 10/13/18 10/12/18 Rx traMADol [Ultram 50 MG tab] 50 mg PO Q8H PRN #20 tablet 05/24/18 10/13/18 10/12/18 Rx Amitriptyline [Elavil] 25 mg PO QHS 10/13/18 10/13/18 10/12/18 History Bimatoprost [Lumigan 0.01%] 1 drop OP QPM 10/13/18 10/13/18 10/12/18 History Clopidogrel [Plavix] 75 mg PO QDAY 10/13/18 10/13/18 10/12/18 History Cyclobenzaprine [Flexeril 10 MG 10 mg PO BID 10/13/18 10/13/18 10/12/18 History TAB] Gabapentin [Neurontin] 600 mg PO Q8H 10/13/18 10/13/18 10/12/18 History metFORMIN [Glucophage] 500 mg PO QDAY 10/13/18 10/13/18 10/12/18 History Active Meds: Active Medications Acetaminophen (Tylenol) 650 mg PO Q4H PRN PRN Reason: Pain MILD(1-3)/Fever >100.5/[place] Albuterol/Ipratropium (Duoneb *Not For Prn Use*) 1 ampul IH QIDRT LUDA Sodium Chloride (Nacl 0.9%) 100 mls @ 999 mls/hr IV STEVE PRN PRN Reason: Hypotension Sodium Chloride (Nacl 0.9% 1000 Ml) 1,000 mls @ 75 mls/hr IV DIRECT [facility] Last Admin: 10/14/18 02:26 Dose: 75 mls/hr Documented by: Cefepime HCl (Maxipime/Ns 1 Gm/100 Ml) 1 gm in 100 mls @ 200 mls/hr IV Q24HR LUDA; Protocol Insulin Human Lispro (Humalog) 0 unit SUB-Q Q6HR LUDA; Protocol Last Admin: 10/14/18 06:11 Dose: Not Given Documented by: Metoclopramide HCl (Reglan) 10 mg IV Q6H PRN PRN Reason: Nausea And Vomiting Morphine Sulfate (Morphine) 2 mg IV Q4H PRN PRN Reason: Pain, Moderate (4-6) Last Admin: 10/14/18 09:09 Dose: 2 mg Documented by: Nicotine (Habitrol) 14 mg TD QDAY [facility] Ondansetron HCl (Zofran) 4 mg IV Q3H PRN PRN Reason: Nausea And Vomiting Pantoprazole Sodium (Protonix) 40 mg IV DAILY [facility] Last Admin: 10/13/18 14:46 Dose: 40 mg Documented by: Sodium Chloride (Sodium Chloride Flush Syringe 10 Ml) 10 ml IV BID [facility] Last Admin: 10/14/18 09:10 Dose: 10 ml Documented by: Sodium Chloride (Sodium Chloride Flush Syringe 10 Ml) 10 ml IV PRN PRN PRN Reason: LINE FLUSH Physical Examination Vital signs: Vital Signs Temp Pulse Resp BP Pulse Ox 102 F H 102 H 16 131/49 96 10/13/18 08:35 10/13/18 08:35 10/13/18 08:35 10/13/18 08:35 10/13/18 08:35 Results - Laboratory Findings CBC and BMP: 10/14/18 04:36 10/14/18 04:36 Abnormal lab findings: Abnormal Labs 10/13/18 10/13/18 10/13/18 08:32 08:36 09:17 WBC 31.8 H RBC Hct 44.2 H MCV 102 H MCH 33 H MCHC Lymph % (Auto) Lymph # Seg Neutrophils % Seg Neuts % (Manual) 83.0 H Lymphocytes % (Manual) 3.0 L Monocytes % (Manual) 10.0 H Seg Neutrophils # Seg Neutrophils # Man 26.4 H Lymphocytes # (Manual) 1.0 L Monocytes # (Manual) 3.2 H Potassium Chloride Carbon Dioxide BUN Creatinine Glucose POC Glucose 281 H Lactic Acid Calcium AST Alkaline Phosphatase Ammonia Total Creatine Kinase Total Protein Albumin Urine WBC (Auto) > 182.0 H Hepatitis C Antibody 10/13/18 10/13/18 10/13/18 09:17 09:17 11:09 WBC RBC Hct MCV MCH MCHC Lymph % (Auto) Lymph # Seg Neutrophils % Seg Neuts % (Manual) Lymphocytes % (Manual) Monocytes % (Manual) Seg Neutrophils # Seg Neutrophils # Man Lymphocytes # (Manual) Monocytes # (Manual) Potassium 8.7 H* Chloride Carbon Dioxide 8 L* BUN 31 H Creatinine 3.2 H Glucose 264 H POC Glucose Lactic Acid 4.90 H* Calcium AST 67 H Alkaline Phosphatase 268 H Ammonia 72.0 H Total Creatine Kinase Total Protein Albumin 3.2 L Urine WBC (Auto) Hepatitis C Antibody 10/13/18 10/13/18 10/13/18 11:09 11:47 12:20 WBC RBC Hct MCV MCH MCHC Lymph % (Auto) Lymph # Seg Neutrophils % Seg Neuts % (Manual) Lymphocytes % (Manual) Monocytes % (Manual) Seg Neutrophils # Seg Neutrophils # Man Lymphocytes # (Manual) Monocytes # (Manual) Potassium 8.1 H* Chloride 111.0 H Carbon Dioxide 12 L BUN 31 H Creatinine 2.9 H Glucose 225 H POC Glucose 225 H Lactic Acid 5.20 H* Calcium AST 73 H Alkaline Phosphatase 268 H Ammonia Total Creatine Kinase Total Protein 6.0 L Albumin 3.0 L Urine WBC (Auto) Hepatitis C Antibody 10/13/18 10/13/18 10/13/18 12:30 12:30 18:08 WBC RBC Hct MCV MCH MCHC Lymph % (Auto) Lymph # Seg Neutrophils % Seg Neuts % (Manual) Lymphocytes % (Manual) Monocytes % (Manual) Seg Neutrophils # Seg Neutrophils # Man Lymphocytes # (Manual) Monocytes # (Manual) Potassium 8.1 H* Chloride 107.8 H Carbon Dioxide 11 L BUN 32 H Creatinine 2.9 H Glucose 329 H POC Glucose Lactic Acid Calcium AST Alkaline Phosphatase Ammonia Total Creatine Kinase 5299 H Total Protein Albumin Urine WBC (Auto) Hepatitis C Antibody Reactive A 10/14/18 10/14/18 10/14/18 04:36 04:36 05:35 WBC 16.5 H RBC 3.51 L Hct MCV 98 H MCH 34 H MCHC 35 H Lymph % (Auto) 6.4 L Lymph # 1.1 L Seg Neutrophils % 88.4 H Seg Neuts % (Manual) Lymphocytes % (Manual) Monocytes % (Manual) Seg Neutrophils # 14.6 H Seg Neutrophils # Man Lymphocytes # (Manual) Monocytes # (Manual) Potassium 5.1 H D Chloride Carbon Dioxide BUN 19 H Creatinine 1.5 H Glucose 155 H POC Glucose 142 H Lactic Acid Calcium 7.6 L AST Alkaline Phosphatase Ammonia Total Creatine Kinase Total Protein Albumin Urine WBC (Auto) Hepatitis C Antibody
[2018-10-14] MEDS: HABITROL TD SCH (09:50)
[2018-10-14] MEDS: PROTONIX IV SCH ×2 (09:50→22:53)
[2018-10-14] MEDS ORDERED: PROVENTIL IH PRN (10:38)
[2018-10-14] MEDS: D5NS 1,000 ML IV SCH (11:49)
[2018-10-14] MEDS: DILAUDID IV PRN (12:38)
--- NOTE | 2018-10-14 12:51 | Progress Note ---
Assessment and Plan Acute kidney injury, likely ischemic ATN, baseline Cr was normal Hyperkalemia secondary to ARF and lisinopril AG metabolic acidosis secondary to ARF and lactic acidosis Urospesis Metabolic encephalopathy - Renal function reviewed. Serum creatinine 1.5 today, yesterday's was 2.9 - S/p Bicarb drip. Now on D5NS@ 75 ml/hr - Urine lytes, eos, protein and CK- pending - Renal ultrasound-no acute findings. No Hydronephrosis. - Strict I&O monitoring- nuñez catheter ordered - Obtain daily weights - Renally dose medications - Avoid nephrotoxic agents - Continue to monitor renal function - Plan of care reviewed with Dr. Bae Subjective Date of service: 10/14/18 Principal diagnosis: ARF Interval history: Patient seen lying in bed. No family at bedside. Objective - Vital Signs Vital signs: Vital Signs - 12hr 10/14/18 10/14/18 10/14/18 00:50 01:00 01:10 Temperature Pulse Rate 128 H 128 H 128 H Respiratory 32 H 24 33 H Rate Blood Pressure 120/57 136/64 120/57 O2 Sat by Pulse 90 89 89 Oximetry 10/14/18 10/14/18 10/14/18 01:20 01:30 02:00 Temperature Pulse Rate 127 H 128 H Respiratory 28 H 35 H Rate Blood Pressure 120/57 120/57 O2 Sat by Pulse 90 89 94 Oximetry 10/14/18 10/14/18 10/14/18 02:10 03:35 04:10 Temperature 98.2 F 98.8 F Pulse Rate 122 H Respiratory 38 H Rate Blood Pressure O2 Sat by Pulse 93 Oximetry 10/14/18 10/14/18 10/14/18 04:20 04:30 04:40 Temperature Pulse Rate 123 H 123 H 124 H Respiratory 36 H 19 35 H Rate Blood Pressure 130/66 130/66 O2 Sat by Pulse 93 91 93 Oximetry 10/14/18 10/14/18 10/14/18 04:50 05:00 05:10 Temperature Pulse Rate 120 H 126 H 121 H Respiratory 26 H 25 H 18 Rate Blood Pressure 130/66 130/61 130/61 O2 Sat by Pulse 94 93 93 Oximetry 10/14/18 10/14/18 10/14/18 05:20 05:30 05:40 Temperature Pulse Rate 122 H 123 H 123 H Respiratory 29 H 24 23 Rate Blood Pressure 130/66 127/65 127/65 O2 Sat by Pulse 93 93 93 Oximetry 10/14/18 10/14/18 10/14/18 05:50 06:00 06:10 Temperature Pulse Rate 122 H 123 H 123 H Respiratory 32 H 19 31 H Rate Blood Pressure 127/65 131/66 131/66 O2 Sat by Pulse 93 93 93 Oximetry 10/14/18 10/14/18 10/14/18 06:20 06:30 06:40 Temperature Pulse Rate 124 H 125 H 122 H Respiratory 15 21 29 H Rate Blood Pressure 127/65 120/66 120/66 O2 Sat by Pulse 91 93 93 Oximetry 10/14/18 10/14/18 10/14/18 06:50 07:00 07:10 Temperature Pulse Rate 123 H 127 H 123 H Respiratory 21 25 H 13 Rate Blood Pressure 120/66 138/66 138/66 O2 Sat by Pulse 93 93 93 Oximetry 10/14/18 10/14/18 10/14/18 07:20 07:30 07:40 Temperature Pulse Rate 123 H 123 H 127 H Respiratory 31 H 28 H 32 H Rate Blood Pressure 120/66 116/74 116/74 O2 Sat by Pulse 93 92 94 Oximetry 10/14/18 10/14/18 10/14/18 07:50 08:00 08:05 Temperature 98.6 F 98.6 F Pulse Rate 121 H 119 H Respiratory 18 32 H Rate Blood Pressure 116/74 123/61 O2 Sat by Pulse 93 95 Oximetry 10/14/18 10/14/18 10/14/18 08:10 08:20 08:30 Temperature Pulse Rate 119 H 120 H 122 H Respiratory 29 H 24 25 H Rate Blood Pressure 123/61 123/61 138/63 O2 Sat by Pulse 93 93 93 Oximetry 10/14/18 10/14/18 10/14/18 08:40 08:50 09:00 Temperature Pulse Rate 120 H 121 H 123 H Respiratory 31 H 39 H 44 H Rate Blood Pressure 138/63 138/63 134/67 O2 Sat by Pulse 92 92 92 Oximetry 10/14/18 10/14/18 10/14/18 09:10 09:20 09:30 Temperature Pulse Rate 119 H 118 H 116 H Respiratory 22 26 H 33 H Rate Blood Pressure 134/67 134/67 135/55 O2 Sat by Pulse 91 92 93 Oximetry 10/14/18 10/14/18 10/14/18 09:40 09:50 10:00 Temperature Pulse Rate 119 H 119 H 120 H Respiratory 32 H 33 H 25 H Rate Blood Pressure 135/55 135/55 135/55 O2 Sat by Pulse 92 92 92 Oximetry 10/14/18 10/14/18 10/14/18 10:10 10:20 10:30 Temperature Pulse Rate 118 H 118 H 117 H Respiratory 31 H 28 H 28 H Rate Blood Pressure 116/58 116/58 125/66 O2 Sat by Pulse 93 92 94 Oximetry 10/14/18 10/14/18 10/14/18 10:37 10:40 10:50 Temperature Pulse Rate 119 H 117 H Respiratory 27 H 22 Rate Blood Pressure 125/66 125/66 O2 Sat by Pulse 93 94 93 Oximetry 10/14/18 10/14/18 10/14/18 11:00 11:10 11:20 Temperature Pulse Rate 120 H 115 H 116 H Respiratory 25 H 20 20 Rate Blood Pressure 125/66 133/61 133/61 O2 Sat by Pulse 93 94 94 Oximetry 10/14/18 11:30 Temperature Pulse Rate 119 H Respiratory 27 H Rate Blood Pressure 141/63 O2 Sat by Pulse 92 Oximetry - General Appearance General appearance: chronically ill, fatigue EENT: ATNC, PERRL Neck: no JVD, supple Respiratory: Present: Decreased Breath Sounds Cardiology: S1S2 Gastrointestinal: normoactive bowel sounds, other (NG tube intact) Integumentary: warm and dry Neurologic: other ( Lethargic) Musculoskeletal: other (No edema) - Lab 10/14/18 04:36 10/14/18 04:36 Most recent lab results Calcium 7.6 mg/dL (8.4-10.2) L 10/14/18 04:36 Phosphorus 4.30 mg/dL (2.5-4.5) 10/14/18 04:36 Medications & Allergies - Medications Allergies/Adverse Reactions: Allergies Sulfa (Sulfonamide Antibiotics) Allergy (Verified 05/09/18 17:10) Rash Home Medications: Home Medications Medication Instructions Recorded Confirmed Last Taken Type amLODIPine [Norvasc] 10 mg PO DAILY 02/21/18 10/13/18 10/12/18 History Lisinopril [Zestril] 10 mg PO DAILY 05/10/18 10/13/18 10/12/18 History Pantoprazole [Protonix TAB] 40 mg PO BID #60 tablet 05/14/18 10/13/18 10/12/18 Rx traMADol [Ultram 50 MG tab] 50 mg PO Q8H PRN #20 tablet 05/24/18 10/13/18 10/12/18 Rx Amitriptyline [Elavil] 25 mg PO QHS 10/13/18 10/13/18 10/12/18 History Bimatoprost [Lumigan 0.01%] 1 drop OP QPM 10/13/18 10/13/18 10/12/18 History Clopidogrel [Plavix] 75 mg PO QDAY 10/13/18 10/13/18 10/12/18 History Cyclobenzaprine [Flexeril 10 MG 10 mg PO BID 10/13/18 10/13/18 10/12/18 History TAB] Gabapentin [Neurontin] 600 mg PO Q8H 10/13/18 10/13/18 10/12/18 History metFORMIN [Glucophage] 500 mg PO QDAY 10/13/18 10/13/18 10/12/18 History Active Medications: Generic Name Dose Route Start Last Admin Trade Name Freq PRN Reason Stop Dose Admin Acetaminophen 650 mg 10/13/18 19:41 Tylenol PO Q4H PRN Pain MILD(1-3)/Fever >100.5/[place] Albuterol 2.5 mg 10/14/18 10:38 Proventil IH Q4HRT PRN Shortness Of Breath Albuterol/Ipratropium 1 ampul 10/14/18 14:00 Duoneb *Not For Prn Use* IH TIDRT LUDA Hydromorphone HCl 0.5 mg 10/14/18 12:23 10/14/18 12:38 Dilaudid IV 0.5 mg Q3H PRN Administration Pain , Severe (7-10) Sodium Chloride 100 mls @ 999 mls/hr 10/13/18 16:23 Nacl 0.9% IV STEVE PRN Hypotension Cefepime HCl 1 gm in 100 mls @ 200 mls/hr 10/15/18 10:00 Maxipime/Ns 1 Gm/100 Ml IV Q24HR LUDA Protocol Dextrose/Sodium Chloride 1,000 mls @ 75 mls/hr 10/14/18 10:00 10/14/18 11:49 D5ns IV 75 mls/hr DIRECT LUDA Administration Insulin Human Lispro 0 unit 10/14/18 06:00 10/14/18 12:12 Humalog SUB-Q 2 unit Q6HR LUDA Administration Protocol Metoclopramide HCl 10 mg 10/13/18 19:41 Reglan IV Q6H PRN Nausea And Vomiting Nicotine 14 mg 10/14/18 10:00 10/14/18 09:50 Habitrol TD 14 mg QDAY LUDA Administration Ondansetron HCl 4 mg 10/13/18 19:41 Zofran IV Q3H PRN Nausea And Vomiting Pantoprazole Sodium 40 mg 10/13/18 15:00 10/14/18 09:50 Protonix IV 40 mg DAILY LUDA Administration Sodium Chloride 10 ml 10/13/18 22:00 10/14/18 09:10 Sodium Chloride Flush Syringe 10 Ml IV 10 ml BID LUDA Administration Sodium Chloride 10 ml 10/13/18 19:41 Sodium Chloride Flush Syringe 10 Ml IV PRN PRN LINE FLUSH
--- NOTE | 2018-10-14 13:01 | XRay Report ---
ABDOMINAL SERIES WITH CHEST X-RAY ONE VIEW INDICATION / CLINICAL INFORMATION: Partial small bowel obstruction. Abdominal pain COMPARISON: 10/13/2018 FINDINGS: Single view of the chest is unremarkable. A nasogastric tube terminates in the distal stomach. A righ t IJ venous catheter terminates near the cavoatrial junction. Supine and upright views of the abdomen demonstrates moderate stool throughout the length of the colo n. No convincing dilated bowel loops, large air-fluid levels or free air is identified. No pathologic calcifications. IMPRESSION: Mild fecal retention. Otherwise normal or near-normal abdominal series. Signer Name: Stanford Feng Jr, MD Signed: 10/14/2018 12:56 PM Workstation Name: [id number]
[2018-10-14] MEDS: DUONEB *Not for PRN Use IH SCH ×2 (13:28→19:55)
[2018-10-14] MEDS ORDERED: MILK OF MAGNESIA FEEDTUBE ONE (15:14)
--- NOTE | 2018-10-14 15:17 | Progress Note ---
Assessment and Plan 67 yo F with 1. abdominal pain - CT scan with pSBO, fecal retention. Pt with hx of duodenal ulcer 2. sepsis 3. UTI 4. hyperkalemia 5. acute renal failure 6. AMS Patient overall stable and labs improving. Abdominal pain may be multifactorial and related to hx of duodenal ulcer and fecal retention. Obstruction series - no evidence of obstruction. fecal retention Plan: 1. NPO 2. IVF 3. bowel regimen - will give MOM x1 via NGT and dulcolax suppository daily 4. NGT to LIWS until patient starts having bowel function 5. PPI BID 6. IV abx per 1' team 7. trend labs 8. nephro on board Thank you, please call with questions. Subjective Date of service: 10/14/18 Narrative: Pt seen and examined. States abdomen is better today. No flatus or BM. Had HD yesterday. States she is tired and hasn't slept Objective Vital Signs - 12hr 10/14/18 10/14/18 10/14/18 03:35 04:10 04:20 Temperature 98.8 F Pulse Rate 122 H 123 H Pulse Rate [ Anterior Bilateral Throughout] Respiratory 38 H 36 H Rate Respiratory Rate [Anterior Bilateral Throughout] Blood Pressure O2 Sat by Pulse 93 93 Oximetry 10/14/18 10/14/18 10/14/18 04:30 04:40 04:50 Temperature Pulse Rate 123 H 124 H 120 H Pulse Rate [ Anterior Bilateral Throughout] Respiratory 19 35 H 26 H Rate Respiratory Rate [Anterior Bilateral Throughout] Blood Pressure 130/66 130/66 130/66 O2 Sat by Pulse 91 93 94 Oximetry 10/14/18 10/14/18 10/14/18 05:00 05:10 05:20 Temperature Pulse Rate 126 H 121 H 122 H Pulse Rate [ Anterior Bilateral Throughout] Respiratory 25 H 18 29 H Rate Respiratory Rate [Anterior Bilateral Throughout] Blood Pressure 130/61 130/61 130/66 O2 Sat by Pulse 93 93 93 Oximetry 10/14/18 10/14/18 10/14/18 05:30 05:40 05:50 Temperature Pulse Rate 123 H 123 H 122 H Pulse Rate [ Anterior Bilateral Throughout] Respiratory 24 23 32 H Rate Respiratory Rate [Anterior Bilateral Throughout] Blood Pressure 127/65 127/65 127/65 O2 Sat by Pulse 93 93 93 Oximetry 10/14/18 10/14/18 10/14/18 06:00 06:10 06:20 Temperature Pulse Rate 123 H 123 H 124 H Pulse Rate [ Anterior Bilateral Throughout] Respiratory 19 31 H 15 Rate Respiratory Rate [Anterior Bilateral Throughout] Blood Pressure 131/66 131/66 127/65 O2 Sat by Pulse 93 93 91 Oximetry 10/14/18 10/14/18 10/14/18 06:30 06:40 06:50 Temperature Pulse Rate 125 H 122 H 123 H Pulse Rate [ Anterior Bilateral Throughout] Respiratory 21 29 H 21 Rate Respiratory Rate [Anterior Bilateral Throughout] Blood Pressure 120/66 120/66 120/66 O2 Sat by Pulse 93 93 93 Oximetry 10/14/18 10/14/18 10/14/18 07:00 07:10 07:20 Temperature Pulse Rate 127 H 123 H 123 H Pulse Rate [ Anterior Bilateral Throughout] Respiratory 25 H 13 31 H Rate Respiratory Rate [Anterior Bilateral Throughout] Blood Pressure 138/66 138/66 120/66 O2 Sat by Pulse 93 93 93 Oximetry 10/14/18 10/14/18 10/14/18 07:30 07:40 07:50 Temperature Pulse Rate 123 H 127 H 121 H Pulse Rate [ Anterior Bilateral Throughout] Respiratory 28 H 32 H 18 Rate Respiratory Rate [Anterior Bilateral Throughout] Blood Pressure 116/74 116/74 116/74 O2 Sat by Pulse 92 94 93 Oximetry 10/14/18 10/14/18 10/14/18 08:00 08:05 08:10 Temperature 98.6 F 98.6 F Pulse Rate 119 H 119 H Pulse Rate [ Anterior Bilateral Throughout] Respiratory 32 H 29 H Rate Respiratory Rate [Anterior Bilateral Throughout] Blood Pressure 123/61 123/61 O2 Sat by Pulse 95 93 Oximetry 10/14/18 10/14/18 10/14/18 08:20 08:30 08:40 Temperature Pulse Rate 120 H 122 H 120 H Pulse Rate [ Anterior Bilateral Throughout] Respiratory 24 25 H 31 H Rate Respiratory Rate [Anterior Bilateral Throughout] Blood Pressure 123/61 138/63 138/63 O2 Sat by Pulse 93 93 92 Oximetry 10/14/18 10/14/18 10/14/18 08:50 09:00 09:10 Temperature Pulse Rate 121 H 123 H 119 H Pulse Rate [ Anterior Bilateral Throughout] Respiratory 39 H 44 H 22 Rate Respiratory Rate [Anterior Bilateral Throughout] Blood Pressure 138/63 134/67 134/67 O2 Sat by Pulse 92 92 91 Oximetry 10/14/18 10/14/18 10/14/18 09:20 09:30 09:40 Temperature Pulse Rate 118 H 116 H 119 H Pulse Rate [ Anterior Bilateral Throughout] Respiratory 26 H 33 H 32 H Rate Respiratory Rate [Anterior Bilateral Throughout] Blood Pressure 134/67 135/55 135/55 O2 Sat by Pulse 92 93 92 Oximetry 10/14/18 10/14/18 10/14/18 09:50 10:00 10:10 Temperature Pulse Rate 119 H 120 H 118 H Pulse Rate [ Anterior Bilateral Throughout] Respiratory 33 H 25 H 31 H Rate Respiratory Rate [Anterior Bilateral Throughout] Blood Pressure 135/55 135/55 116/58 O2 Sat by Pulse 92 92 93 Oximetry 10/14/18 10/14/18 10/14/18 10:20 10:30 10:37 Temperature Pulse Rate 118 H 117 H Pulse Rate [ Anterior Bilateral Throughout] Respiratory 28 H 28 H Rate Respiratory Rate [Anterior Bilateral Throughout] Blood Pressure 116/58 125/66 O2 Sat by Pulse 92 94 93 Oximetry 10/14/18 10/14/18 10/14/18 10:40 10:50 11:00 Temperature Pulse Rate 119 H 117 H 120 H Pulse Rate [ Anterior Bilateral Throughout] Respiratory 27 H 22 25 H Rate Respiratory Rate [Anterior Bilateral Throughout] Blood Pressure 125/66 125/66 125/66 O2 Sat by Pulse 94 93 93 Oximetry 10/14/18 10/14/18 10/14/18 11:10 11:20 11:30 Temperature Pulse Rate 115 H 116 H 119 H Pulse Rate [ Anterior Bilateral Throughout] Respiratory 20 20 27 H Rate Respiratory Rate [Anterior Bilateral Throughout] Blood Pressure 133/61 133/61 141/63 O2 Sat by Pulse 94 94 92 Oximetry 10/14/18 10/14/18 10/14/18 11:40 11:50 12:00 Temperature 99.8 F H Pulse Rate 116 H 117 H 118 H Pulse Rate [ Anterior Bilateral Throughout] Respiratory 26 H 35 H 15 Rate Respiratory Rate [Anterior Bilateral Throughout] Blood Pressure 141/63 141/63 141/63 O2 Sat by Pulse 94 92 91 Oximetry 10/14/18 10/14/18 10/14/18 12:10 12:15 12:20 Temperature Pulse Rate 116 H 120 H Pulse Rate [ Anterior Bilateral Throughout] Respiratory 35 H 35 H 20 Rate Respiratory Rate [Anterior Bilateral Throughout] Blood Pressure 116/93 138/54 O2 Sat by Pulse 94 94 94 Oximetry 10/14/18 10/14/18 10/14/18 12:30 12:40 12:50 Temperature Pulse Rate 121 H 116 H Pulse Rate [ Anterior Bilateral Throughout] Respiratory 47 H 29 H Rate Respiratory Rate [Anterior Bilateral Throughout] Blood Pressure 121/72 121/72 121/72 O2 Sat by Pulse 92 94 94 Oximetry 10/14/18 10/14/18 10/14/18 13:00 13:10 13:20 Temperature Pulse Rate 118 H 117 H 116 H Pulse Rate [ Anterior Bilateral Throughout] Respiratory 30 H 28 H 25 H Rate Respiratory Rate [Anterior Bilateral Throughout] Blood Pressure 129/64 129/64 129/64 O2 Sat by Pulse 94 94 95 Oximetry 10/14/18 10/14/18 10/14/18 13:28 13:30 13:40 Temperature Pulse Rate 117 H 117 H Pulse Rate [ 117 H Anterior Bilateral Throughout] Respiratory 30 H 27 H Rate Respiratory 24 Rate [Anterior Bilateral Throughout] Blood Pressure 127/62 127/62 O2 Sat by Pulse 94 93 Oximetry 10/14/18 10/14/18 13:50 14:00 Temperature Pulse Rate 118 H 117 H Pulse Rate [ Anterior Bilateral Throughout] Respiratory 27 H 26 H Rate Respiratory Rate [Anterior Bilateral Throughout] Blood Pressure 127/62 123/64 O2 Sat by Pulse 93 93 Oximetry - General physical appearance Narrative Exam: Gen: Arousable. Confused. NAD ENT: NGT with scant dark brown drainage CV; s1, S2+. tachy Resp; even and unlabored Abd: soft, ND, TTP in upper abdomen. No r/r/g Ext: no c/c/e - Labs 10/14/18 04:36 10/14/18 04:36 Diabetes panel 10/13/18 10/14/18 Range/Units 09:17 04:36 Sodium 143 (137-145) mmol/L Potassium 5.1 H D (3.6-5.0) mmol/L Chloride 100.0 (98-107) mmol/L Carbon Dioxide 23 D (22-30) mmol/L BUN 19 H (7-17) mg/dL Creatinine 1.5 H (0.7-1.2) mg/dL Glucose 155 H (65-100) mg/dL Hemoglobin A1c 5.5 (4-6) % Calcium 7.6 L (8.4-10.2) mg/dL Calcium panel 10/14/18 Range/Units 04:36 Calcium 7.6 L (8.4-10.2) mg/dL Phosphorus 4.30 (2.5-4.5) mg/dL Pituitary panel 10/14/18 Range/Units 04:36 Sodium 143 (137-145) mmol/L Potassium 5.1 H D (3.6-5.0) mmol/L Chloride 100.0 (98-107) mmol/L Carbon Dioxide 23 D (22-30) mmol/L BUN 19 H (7-17) mg/dL Creatinine 1.5 H (0.7-1.2) mg/dL Glucose 155 H (65-100) mg/dL Calcium 7.6 L (8.4-10.2) mg/dL Adrenal panel 10/14/18 Range/Units 04:36 Sodium 143 (137-145) mmol/L Potassium 5.1 H D (3.6-5.0) mmol/L Chloride 100.0 (98-107) mmol/L Carbon Dioxide 23 D (22-30) mmol/L BUN 19 H (7-17) mg/dL Creatinine 1.5 H (0.7-1.2) mg/dL Glucose 155 H (65-100) mg/dL Calcium 7.6 L (8.4-10.2) mg/dL
[2018-10-14] MEDS: DULCOLAX PR SCH (16:07)
[2018-10-15] MEDS: D5NS 1,000 ML IV SCH (01:58)
[2018-10-15] MEDS ORDERED: VANCOMYCIN 1,500 MG in NACL 0.9% 500 ML 500 ML IV SCH (02:00)
[2018-10-15] MEDS: DILAUDID IV PRN ×2 (03:58→22:23)
[2018-10-15 04:47] LABS: Mean Corpuscular HGB Conc 34 % (30-34); Mean Corpuscular Volume 99 fl (79-97); Mean Platelet Volume 8.8 fl (6-12); Platelet Count 153 K/mm3 (140-440); Red Blood Count 3.22 M/mm3 (3.65-5.03); Red Cell Distribution Width 14.4 % (13.2-15.2)
[2018-10-15 05:35] LABS: Calcium 7.6 mg/dL (8.4-10.2)
[2018-10-15] MEDS: HumaLOG SUB-Q SCH ×4 (05:50→22:21)
[2018-10-15] MEDS: DUONEB *Not for PRN Use IH SCH ×4 (07:17→22:06)
[2018-10-15 07:54] LABS: Anisocytosis Few; Band Neutrophils # (Manual) 0.2 K/mm3; Basophils % (Manual) 0 % (0.0-1.8); Eosinophils % (Manual) 0 % (0.0-4.3); Total Cells Counted 100
[2018-10-15 07:55] LABS: Platelet Estimate Consistent w Auto
--- NOTE | 2018-10-15 08:27 | Progress Note ---
Assessment and Plan Severe Sepsis Acute encephalopathy Acute kidney injury secondary to ATN Hyperkalemia severe Small bowel obstruction Abdominal Pain Rhabdomyolysis - prn antiemetics -Antibiotics, de-escalate as indicated -Bowel regimen, KUB shows fecal impaction - continue suppplemental oxygen to keep O2 sats >90% - continue BIPAP scheduled qhs - supportive transfusions as needed to keep HgB >7g/dL - continue VTE prophylaxis ( SCDs) - continue PPI therapy - continue bronchodilators with pulmonary hygiene per RT - continue mobility protocol for pressure ulcer prevention - PT/OT as tolerated -Discontinue nuñez catheter - continue close monitoring of renal function and hemodynamics -continue to avoid nephrotoxins, adjust all medications for CrCl and GFR - continue accuchecks with glycemic control per SSI for target blood glucose 140-180mg/dL - continue other care per attending / other consultants Subjective Date of service: 10/15/18 Principal diagnosis: ARF Interval history: Patient is seen today for: Severe Sepsis; Acute encephalopathy; Acute kidney injury; Hyperkalemia severe; Small bowel obstruction; Abdominal Pain; Rhab domyolysis Seen and examined at bedside; 24hour events reviewed; nursing and respiratory care staff consulted; no adverse overnight events reported to me; resting in bed; remains on supplemental oxygen; denies acute chest pains or palpitations; No N/V/F/C; vitals, labs, medications, chart reviewed. Objective - Exam Narrative Exam: Constitutional: alert, appears uncomfortable, other (elderly looking CF, normocephalic and atraumatic with mildly increased respiratory effort at rest) Eyes: non-icteric ENT: oropharynx moist, other (mallampati 3) Neck: supple, no lymphadenopathy, no JVD Effort: mildly labored Ascultation: Bilateral: diminished breath sounds, rhonchi (scant) Percussion: Bilateral: not dull Cardiovascular: regular rate and rhythm Gastrointestinal: normoactive bowel sounds, soft, tender (mildly all quadrants), non-distended, other (di) Integumentary: normal Extremities: no cyanosis, no edema, pink and warm, pulses normal Neurologic: normal mental status, non-focal exam (grossly), pupils equal and round, CN II-XII normal, motor strength normal and Psychiatric: mood appropriate, affect normal Vital Signs - 12hr 10/14/18 10/14/18 10/14/18 20:30 21:00 21:30 Temperature Pulse Rate 128 H 126 H 127 H Pulse Rate [ Anterior Bilateral Throughout] Pulse Rate [ Radial] Respiratory 34 H 31 H 31 H Rate Respiratory Rate [Anterior Bilateral Throughout] Blood Pressure 156/71 135/62 145/67 O2 Sat by Pulse 92 94 94 Oximetry 10/14/18 10/14/18 10/14/18 22:00 22:30 22:59 Temperature Pulse Rate 127 H 129 H 127 H Pulse Rate [ Anterior Bilateral Throughout] Pulse Rate [ Radial] Respiratory 35 H 40 H 41 H Rate Respiratory Rate [Anterior Bilateral Throughout] Blood Pressure 148/65 144/60 144/60 O2 Sat by Pulse 92 93 95 Oximetry 10/14/18 10/14/18 10/14/18 23:00 23:06 23:29 Temperature 100.0 F H Pulse Rate 128 H 123 H Pulse Rate [ Anterior Bilateral Throughout] Pulse Rate [ Radial] Respiratory 41 H 29 H Rate Respiratory Rate [Anterior Bilateral Throughout] Blood Pressure 134/71 134/71 O2 Sat by Pulse 95 97 Oximetry 10/14/18 10/15/18 10/15/18 23:30 00:00 00:30 Temperature Pulse Rate 123 H 123 H 124 H Pulse Rate [ Anterior Bilateral Throughout] Pulse Rate [ Radial] Respiratory 26 H 29 H 39 H Rate Respiratory Rate [Anterior Bilateral Throughout] Blood Pressure 142/63 138/63 135/64 O2 Sat by Pulse 96 95 93 Oximetry 10/15/18 10/15/18 10/15/18 01:00 01:30 02:00 Temperature Pulse Rate 122 H 123 H 124 H Pulse Rate [ Anterior Bilateral Throughout] Pulse Rate [ Radial] Respiratory 33 H 39 H 36 H Rate Respiratory Rate [Anterior Bilateral Throughout] Blood Pressure 135/67 135/64 147/73 O2 Sat by Pulse 94 93 93 Oximetry 10/15/18 10/15/18 10/15/18 02:30 03:00 03:30 Temperature Pulse Rate 122 H 125 H 123 H Pulse Rate [ Anterior Bilateral Throughout] Pulse Rate [ Radial] Respiratory 36 H 42 H 57 H Rate Respiratory Rate [Anterior Bilateral Throughout] Blood Pressure 140/66 140/66 142/68 O2 Sat by Pulse 93 92 93 Oximetry 10/15/18 10/15/18 10/15/18 03:58 04:00 04:30 Temperature 99.9 F H Pulse Rate 126 H 118 H Pulse Rate [ Anterior Bilateral Throughout] Pulse Rate [ Radial] Respiratory 40 H 24 23 Rate Respiratory Rate [Anterior Bilateral Throughout] Blood Pressure 136/113 121/48 O2 Sat by Pulse 91 94 Oximetry 10/15/18 10/15/18 10/15/18 05:00 05:30 06:00 Temperature Pulse Rate 115 H 115 H 113 H Pulse Rate [ Anterior Bilateral Throughout] Pulse Rate [ 119 H Radial] Respiratory 22 24 22 Rate Respiratory Rate [Anterior Bilateral Throughout] Blood Pressure 131/51 135/61 128/56 O2 Sat by Pulse 95 95 95 Oximetry 10/15/18 10/15/18 10/15/18 06:30 07:00 07:28 Temperature Pulse Rate 113 H 111 H Pulse Rate [ 115 H Anterior Bilateral Throughout] Pulse Rate [ Radial] Respiratory 24 23 Rate Respiratory 22 Rate [Anterior Bilateral Throughout] Blood Pressure 127/56 129/56 O2 Sat by Pulse 95 95 Oximetry 10/15/18 10/15/18 10/15/18 07:30 08:00 08:01 Temperature 99.0 F Pulse Rate 112 H 114 H Pulse Rate [ Anterior Bilateral Throughout] Pulse Rate [ Radial] Respiratory 24 25 H Rate Respiratory Rate [Anterior Bilateral Throughout] Blood Pressure 128/58 137/65 O2 Sat by Pulse 96 93 Oximetry CBC and BMP: 10/19/18 05:13 10/19/18 05:13 Abnormal lab findings: Abnormal Labs 10/13/18 10/13/18 10/13/18 08:32 08:36 09:17 WBC 31.8 H RBC Hct 44.2 H MCV 102 H MCH 33 H MCHC Lymph % (Auto) Lymph # Seg Neutrophils % Seg Neuts % (Manual) 83.0 H Lymphocytes % (Manual) 3.0 L Monocytes % (Manual) 10.0 H Seg Neutrophils # Seg Neutrophils # Man 26.4 H Lymphocytes # (Manual) 1.0 L Monocytes # (Manual) 3.2 H Sodium Potassium Chloride Carbon Dioxide BUN Creatinine Glucose POC Glucose 281 H Lactic Acid Calcium AST Alkaline Phosphatase Ammonia Total Creatine Kinase Total Protein Albumin Urine WBC (Auto) > 182.0 H Hepatitis C Antibody 10/13/18 10/13/18 10/13/18 09:17 09:17 11:09 WBC RBC Hct MCV MCH MCHC Lymph % (Auto) Lymph # Seg Neutrophils % Seg Neuts % (Manual) Lymphocytes % (Manual) Monocytes % (Manual) Seg Neutrophils # Seg Neutrophils # Man Lymphocytes # (Manual) Monocytes # (Manual) Sodium Potassium 8.7 H* Chloride Carbon Dioxide 8 L* BUN 31 H Creatinine 3.2 H Glucose 264 H POC Glucose Lactic Acid 4.90 H* Calcium AST 67 H Alkaline Phosphatase 268 H Ammonia 72.0 H Total Creatine Kinase Total Protein Albumin 3.2 L Urine WBC (Auto) Hepatitis C Antibody 10/13/18 10/13/18 10/13/18 11:09 11:47 12:20 WBC RBC Hct MCV MCH MCHC Lymph % (Auto) Lymph # Seg Neutrophils % Seg Neuts % (Manual) Lymphocytes % (Manual) Monocytes % (Manual) Seg Neutrophils # Seg Neutrophils # Man Lymphocytes # (Manual) Monocytes # (Manual) Sodium Potassium 8.1 H* Chloride 111.0 H Carbon Dioxide 12 L BUN 31 H Creatinine 2.9 H Glucose 225 H POC Glucose 225 H Lactic Acid 5.20 H* Calcium AST 73 H Alkaline Phosphatase 268 H Ammonia Total Creatine Kinase Total Protein 6.0 L Albumin 3.0 L Urine WBC (Auto) Hepatitis C Antibody 10/13/18 10/13/18 10/13/18 12:30 12:30 18:08 WBC RBC Hct MCV MCH MCHC Lymph % (Auto) Lymph # Seg Neutrophils % Seg Neuts % (Manual) Lymphocytes % (Manual) Monocytes % (Manual) Seg Neutrophils # Seg Neutrophils # Man Lymphocytes # (Manual) Monocytes # (Manual) Sodium Potassium 8.1 H* Chloride 107.8 H Carbon Dioxide 11 L BUN 32 H Creatinine 2.9 H Glucose 329 H POC Glucose Lactic Acid Calcium AST Alkaline Phosphatase Ammonia Total Creatine Kinase 5299 H Total Protein Albumin Urine WBC (Auto) Hepatitis C Antibody Reactive A 10/14/18 10/14/18 10/14/18 04:36 04:36 05:35 WBC 16.5 H RBC 3.51 L Hct MCV 98 H MCH 34 H MCHC 35 H Lymph % (Auto) 6.4 L Lymph # 1.1 L Seg Neutrophils % 88.4 H Seg Neuts % (Manual) Lymphocytes % (Manual) Monocytes % (Manual) Seg Neutrophils # 14.6 H Seg Neutrophils # Man Lymphocytes # (Manual) Monocytes # (Manual) Sodium Potassium 5.1 H D Chloride Carbon Dioxide BUN 19 H Creatinine 1.5 H Glucose 155 H POC Glucose 142 H Lactic Acid Calcium 7.6 L AST Alkaline Phosphatase Ammonia Total Creatine Kinase Total Protein Albumin Urine WBC (Auto) Hepatitis C Antibody 10/14/18 10/14/18 10/14/18 11:23 11:23 11:42 WBC RBC Hct MCV MCH MCHC Lymph % (Auto) Lymph # Seg Neutrophils % Seg Neuts % (Manual) Lymphocytes % (Manual) Monocytes % (Manual) Seg Neutrophils # Seg Neutrophils # Man Lymphocytes # (Manual) Monocytes # (Manual) Sodium Potassium Chloride Carbon Dioxide BUN Creatinine Glucose POC Glucose 154 H Lactic Acid 3.30 H* Calcium AST Alkaline Phosphatase Ammonia Total Creatine Kinase 1935 H Total Protein Albumin Urine WBC (Auto) Hepatitis C Antibody 10/14/18 10/14/18 10/15/18 17:39 23:18 04:12 WBC RBC 3.22 L Hct MCV 99 H MCH 34 H MCHC Lymph % (Auto) Lymph # Seg Neutrophils % Seg Neuts % (Manual) 83.0 H Lymphocytes % (Manual) 10.0 L Monocytes % (Manual) Seg Neutrophils # Seg Neutrophils # Man Lymphocytes # (Manual) 0.9 L Monocytes # (Manual) Sodium Potassium Chloride Carbon Dioxide BUN Creatinine Glucose POC Glucose 171 H 176 H Lactic Acid Calcium AST Alkaline Phosphatase Ammonia Total Creatine Kinase Total Protein Albumin Urine WBC (Auto) Hepatitis C Antibody 10/15/18 10/15/18 04:12 05:29 WBC RBC Hct MCV MCH MCHC Lymph % (Auto) Lymph # Seg Neutrophils % Seg Neuts % (Manual) Lymphocytes % (Manual) Monocytes % (Manual) Seg Neutrophils # Seg Neutrophils # Man Lymphocytes # (Manual) Monocytes # (Manual) Sodium 147 H Potassium Chloride 107.9 H Carbon Dioxide BUN 31 H Creatinine 1.8 H Glucose 162 H POC Glucose 164 H Lactic Acid Calcium 7.6 L AST Alkaline Phosphatase Ammonia Total Creatine Kinase Total Protein Albumin Urine WBC (Auto) Hepatitis C Antibody
[2018-10-15] MEDS: DULCOLAX PR SCH (09:33)
[2018-10-15] MEDS: HABITROL TD SCH (09:33)
[2018-10-15] MEDS: PROTONIX IV SCH ×2 (09:33→22:20)
[2018-10-15] MEDS: MAXIPIME/NS 1 GM/100 ML 1 GM/100 ML BAG IV SCH (09:33)
[2018-10-15] MEDS: SODIUM CHLORIDE FLUSH SYRINGE 10 ML IV SCH ×2 (10:15→22:22)
--- NOTE | 2018-10-15 11:45 | Progress Note ---
Assessment and Plan Assessment and plan: 67 year old woman who presented to the hospital complaining of altered mental status, abdominal pain and low blood pressure was Vora in the ER. She was confused upon arrival what is oriented to person and place but not the time. Past medical history includes CVA diabetes hypertension COPD and chronic kidney disease Cxr No significant abnormalities Axr Neg CT abdomen and pelvis shows a few mildly dilated loops of proximal small bowel and Trace ascites CT head shows no acute abnormality Renal ultrasound shows no acute sonographic animality of the kidneys Repeat chest x-ray and abdominal x-ray shows only mild fecal retention Sepsis; cont sepsis protocol Acute on chronic kidney disease , improved with IV fluids, nephrology seeing patient UTI , continue antibiotics, follow urine culture acute hyperkalemia, has farnaz medically treated, now improved partial bowel obstruction , mgt per GS, NGT to LIS, and bowel regimen acute toxic metabolic encephalopathy; improving Rhabdomyolysis, continue IV fluids Hepatitis C antibody positive, previously positive in 2014, check viral load dvt ppx; lovenox CCT 33 mins History Interval history: no fevers has remained confused and talking to herself, altered no vomiting, no diarrhea Hospitalist Physical - Constitutional Vitals: Temp Pulse Resp BP Pulse Ox 99.0 F 122 H 27 H 147/75 92 10/15/18 08:00 10/15/18 10:31 10/15/18 10:31 10/15/18 10:31 10/15/18 10:31 General appearance: Present: no acute distress, other (confused) - EENT Eyes: Present: PERRL - Neck Neck: Present: supple - Respiratory Respiratory: bilateral: CTA - Cardiovascular Rhythm: regular Heart Sounds: Present: S1 & S2 - Extremities Extremities: no ischemia - Abdominal General gastrointestinal: soft, non-tender - Integumentary Integumentary: Present: clear, warm, dry - Psychiatric Psychiatric: no appropriate mood/affect, no intact judgment & insight - Neurologic Neurologic: CNII-XII intact, no focal deficits Results - Labs CBC & Chem 7: 10/16/18 05:26 10/16/18 05:26 Labs: Laboratory Last Values WBC 8.7 K/mm3 (4.5-11.0) 10/15/18 04:12 RBC 3.22 M/mm3 (3.65-5.03) L 10/15/18 04:12 Hgb 11.0 gm/dl (10.1-14.3) 10/15/18 04:12 Hct 32.0 % (30.3-42.9) 10/15/18 04:12 MCV 99 fl (79-97) H 10/15/18 04:12 MCH 34 pg (28-32) H 10/15/18 04:12 MCHC 34 % (30-34) 10/15/18 04:12 RDW 14.4 % (13.2-15.2) 10/15/18 04:12 Plt Count 153 K/mm3 (140-440) 10/15/18 04:12 Lymph % (Auto) 6.4 % (13.4-35.0) L 10/14/18 04:36 [place] % (Auto) 4.4 % (0.0-7.3) 10/14/18 04:36 Eos % (Auto) 0.4 % (0.0-4.3) 10/14/18 04:36 Baso % (Auto) 0.4 % (0.0-1.8) 10/14/18 04:36 Lymph # 1.1 K/mm3 (1.2-5.4) L 10/14/18 04:36 [place] # 0.7 K/mm3 (0.0-0.8) 10/14/18 04:36 Eos # 0.1 K/mm3 (0.0-0.4) 10/14/18 04:36 Baso # 0.1 K/mm3 (0.0-0.1) 10/14/18 04:36 Add Manual Diff Complete 10/15/18 04:12 Total Counted 100 10/15/18 04:12 Seg Neutrophils % 88.4 % (40.0-70.0) H 10/14/18 04:36 Seg Neuts % (Manual) 83.0 % (40.0-70.0) H 10/15/18 04:12 2.0 % 10/15/18 04:12 10.0 % (13.4-35.0) L 10/15/18 04:12 Reactive Lymphs % (Man) 0 % 10/15/18 04:12 4.0 % (0.0-7.3) 10/15/18 04:12 0 % (0.0-4.3) 10/15/18 04:12 0 % (0.0-1.8) 10/15/18 04:12 1.0 % 10/15/18 04:12 0 % 10/15/18 04:12 0 % 10/15/18 04:12 0 % 10/15/18 04:12 Nucleated RBC % Not Reportable 10/15/18 04:12 Seg Neutrophils # 14.6 K/mm3 (1.8-7.7) H 10/14/18 04:36 Seg Neutrophils # Man 7.2 K/mm3 (1.8-7.7) 10/15/18 04:12 Band Neutrophils # 0.2 K/mm3 10/15/18 04:12 0.9 K/mm3 (1.2-5.4) L 10/15/18 04:12 Abs React Lymphs (Man) 0.0 K/mm3 10/15/18 04:12 0.3 K/mm3 (0.0-0.8) 10/15/18 04:12 0.0 K/mm3 (0.0-0.4) 10/15/18 04:12 0.0 K/mm3 (0.0-0.1) 10/15/18 04:12 0.1 K/mm3 10/15/18 04:12 0.0 K/mm3 10/15/18 04:12 0.0 K/mm3 10/15/18 04:12 Blast Cells # 0.0 K/mm3 10/15/18 04:12 WBC Morphology Not Reportable 10/15/18 04:12 Hypersegmented Neuts Not Reportable 10/15/18 04:12 Hyposegmented Neuts Not Reportable 10/15/18 04:12 Hypogranular Neuts Not Reportable 10/15/18 04:12 Not Reportable 10/15/18 04:12 Not Reportable 10/15/18 04:12 Not Reportable 10/15/18 04:12 Not Reportable 10/15/18 04:12 Not Reportable 10/15/18 04:12 Not Reportable 10/15/18 04:12 Consistent w auto 10/15/18 04:12 Not Reportable 10/15/18 04:12 Plt Clumps, EDTA Not Reportable 10/15/18 04:12 Not Reportable 10/15/18 04:12 Not Reportable 10/15/18 04:12 Not Reportable 10/15/18 04:12 Plt Morphology Comment Not Reportable 10/15/18 04:12 RBC Morphology Not Reportable 10/15/18 04:12 Dimorphic RBCs Not Reportable 10/15/18 04:12 Not Reportable 10/15/18 04:12 Not Reportable 10/15/18 04:12 Not Reportable 10/15/18 04:12 Few 10/15/18 04:12 Not Reportable 10/15/18 04:12 Not Reportable 10/15/18 04:12 Not Reportable 10/15/18 04:12 Not Reportable 10/15/18 04:12 Not Reportable 10/15/18 04:12 Not Reportable 10/15/18 04:12 Not Reportable 10/15/18 04:12 Not Reportable 10/15/18 04:12 Not Reportable 10/15/18 04:12 Not Reportable 10/15/18 04:12 Not Reportable 10/15/18 04:12 Not Reportable 10/15/18 04:12 Not Reportable 10/15/18 04:12 Not Reportable 10/15/18 04:12 Not Reportable 10/15/18 04:12 Acanthocytes (Spur) Not Reportable 10/15/18 04:12 Rouleaux Not Reportable 10/15/18 04:12 Not Reportable 10/15/18 04:12 Not Reportable 10/15/18 04:12 Not Reportable 10/15/18 04:12 Not Reportable 10/15/18 04:12 Hem Pathologist Commnt No 10/15/18 04:12 APTT 30.9 Sec. (24.2-36.6) 10/13/18 09:17 Sodium 147 mmol/L (137-145) H 10/15/18 04:12 Potassium 4.1 mmol/L (3.6-5.0) 10/15/18 04:12 Chloride 107.9 mmol/L (98-107) H 10/15/18 04:12 Carbon Dioxide 26 mmol/L (22-30) 10/15/18 04:12 17 mmol/L 10/15/18 04:12 BUN 31 mg/dL (7-17) H 10/15/18 04:12 1.8 mg/dL (0.7-1.2) H 10/15/18 04:12 Estimated GFR 28 ml/min 10/15/18 04:12 17 % 10/15/18 04:12 Glucose 162 mg/dL (65-100) H 10/15/18 04:12 POC Glucose 164 (70-105) H 10/15/18 05:29 5.5 % (4-6) 10/13/18 09:17 Lactic Acid 3.30 mmol/L (0.7-2.0) H* 10/14/18 11:23 Calcium 7.6 mg/dL (8.4-10.2) L 10/15/18 04:12 Phosphorus 4.50 mg/dL (2.5-4.5) 10/15/18 04:12 0.20 mg/dL (0.1-1.2) 10/13/18 11:09 AST 73 units/L (5-40) H 10/13/18 11:09 ALT 18 units/L (7-56) 10/13/18 11:09 268 units/L (35-129) H 10/13/18 11:09 72.0 umol/L (25-60) H 10/13/18 09:17 1935 units/L (30-135) H 10/14/18 11:23 0.029 ng/mL (0.00-0.029) 10/13/18 09:17 6.0 g/dL (6.3-8.2) L 10/13/18 11:09 3.0 g/dL (3.9-5) L 10/13/18 11:09 1.0 % 10/13/18 11:09 17 units/L (13-60) 10/13/18 09:17 TSH 2.920 mlU/mL (0.270-4.200) 10/13/18 09:17 Yellow (Yellow) 10/13/18 08:32 Turbid (Clear) 10/13/18 08:32 5.0 (5.0-7.0) 10/13/18 08:32 Ur Specific [place] 1.016 (1.003-1.030) 10/13/18 08:32 >500 mg/dL (Negative) 10/13/18 08:32 Neg mg/dL (Negative) 10/13/18 08:32 Tr mg/dL (Negative) 10/13/18 08:32 Neg (Negative) 10/13/18 08:32 Neg (Negative) 10/13/18 08:32 Neg (Negative) 10/13/18 08:32 < 2.0 mg/dL (<2.0) 10/13/18 08:32 Ur Leukocyte Esterase Mod (Negative) 10/13/18 08:32 > 182.0 /HPF (0.0-6.0) H 10/13/18 08:32 12.0 /HPF (0.0-6.0) 10/13/18 08:32 U Epithel Cells (Auto) 3.0 /HPF (0-13.0) 10/13/18 08:32 2+ /HPF (Negative) 10/13/18 08:32 3+ /HPF 10/13/18 08:32 Few /HPF 10/13/18 08:32 Hepatitis A IgM Ab Non-reactive (NonReactive) 10/13/18 18:08 Hep Bs Antigen Non-reactive (Negative) 10/13/18 18:08 Hep B Core IgM Ab Non-reactive (NonReactive) 10/13/18 18:08 Reactive (NonReactive) A 10/13/18 18:08 Active Medications - Current Medications Current Medications: Generic Name Dose Route Start Last Admin Trade Name Freq PRN Reason Stop Dose Admin Acetaminophen 650 mg 10/13/18 19:41 Tylenol PO Q4H PRN Pain MILD(1-3)/Fever >100.5/[place]TON Albuterol 2.5 mg 10/14/18 10:38 Proventil IH Q4HRT PRN Shortness Of Breath Albuterol/Ipratropium 1 ampul 10/14/18 14:00 10/15/18 07:17 Duoneb *Not For Prn Use* IH 1 ampul TIDRT LUDA Administration Bisacodyl 10 mg 10/14/18 16:00 10/15/18 09:33 Dulcolax [place] 10 mg QDAY LUDA Administration Hydromorphone HCl 0.5 mg 10/14/18 12:23 10/15/18 03:58 Dilaudid IV 0.5 mg Q3H PRN Administration Pain , Severe (7-10) Sodium Chloride 100 mls @ 999 mls/hr 10/13/18 16:23 Nacl 0.9% IV STEVE PRN Hypotension Cefepime HCl 1 gm in 100 mls @ 200 mls/hr 10/15/18 10:00 10/15/18 09:33 Maxipime/Ns 1 Gm/100 Ml IV 200 mls/hr Q24HR LUDA Administration Protocol Dextrose/Sodium Chloride 1,000 mls @ 75 mls/hr 10/14/18 10:00 10/15/18 01:58 D5ns IV 75 mls/hr DIRECT LUDA Administration Insulin Human Lispro 0 unit 10/14/18 06:00 10/15/18 05:50 Humalog SUB-Q 2 unit Q6HR LUDA Administration Protocol Metoclopramide HCl 10 mg 10/13/18 19:41 Reglan IV Q6H PRN Nausea And Vomiting Nicotine 14 mg 10/14/18 10:00 10/15/18 09:33 Habitrol TD 14 mg QDAY LUDA Administration Ondansetron HCl 4 mg 10/13/18 19:41 10/15/18 03:58 Zofran IV 4 mg Q3H PRN Administration Nausea And Vomiting Pantoprazole Sodium 40 mg 10/14/18 22:00 10/15/18 09:33 Protonix IV 40 mg BID LUDA Administration Sodium Chloride 10 ml 10/13/18 22:00 10/14/18 22:53 Sodium Chloride Flush Syringe 10 Ml IV 10 ml BID LUDA Administration Sodium Chloride 10 ml 10/13/18 19:41 Sodium Chloride Flush Syringe 10 Ml IV PRN PRN LINE FLUSH Nutrition/Malnutrition Assess - Dietary Evaluation Nutrition/Malnutrition Findings: Nutrition Notes Start: 10/14/18 11:37 Freq: Status: Active Protocol: Document 10/14/18 11:37 LP (Rec: 10/14/18 11:41 LP [id number]) Nutrition Notes 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 Pt sleeping at time of vist. Pt with NGT. Burn Absent Trauma Absent #1 Nutrition Diagnosis Inadequate oral intake Etiology AMS As Evidenced by Signs and Symptoms Pt with NGT and NPO Is patient on ventilator? No Is Patient Ambulatory and/or Out of Bed Yes REE-([facility]-ambulatory/OOB) [ 0110.925 NUTR.MSJOOB] Calculation Used for Recommendations [facility] Additional Notes Protein needs are 74-124g (1.2 -2g/kg) Fluid needs are 1ml/kcal Nutrition Intervention Change Diet Order: Advance diet as feasible Goal #1 Advance diet as feasible Anticipated Discharge Needs: Unable to determine at this time Follow-Up By: 10/16/18 Additional Comments Follow for assessment needs, diet advancement
--- NOTE | 2018-10-15 11:48 | Progress Note ---
Assessment and Plan Assessment and plan: 67 year old woman who presented to the hospital complaining of altered mental status, abdominal pain and low blood pressure was Vora in the ER. She was confused upon arrival what is oriented to person and place but not the time. Past medical history includes CVA diabetes hypertension COPD and chronic kidney disease Cxr No significant abnormalities Axr Neg CT abdomen and pelvis shows a few mildly dilated loops of proximal small bowel and Trace ascites CT head shows no acute abnormality Renal ultrasound shows no acute sonographic animality of the kidneys Repeat chest x-ray and abdominal x-ray shows only mild fecal retention Sepsis; cont sepsis protocol Acute on chronic kidney disease , improved with IV fluids, nephrology seeing patient UTI , continue antibiotics, follow urine culture acute hyperkalemia, has farnaz medically treated, now improved partial bowel obstruction , mgt per GS, NGT to LIS, and bowel regimen acute toxic metabolic encephalopathy; improving Rhabdomyolysis, continue IV fluids Hepatitis C antibody positive, previously positive in 2014, check viral load Hallucations? Mental health consult, geripsych consult dvt ppx; lovenox CCT 33 mins History Interval history: no fevers has remained confused and talking to herself, altered no vomiting, no diarrhea Hospitalist Physical - Physical exam Narrative exam: General appearance: Present: no acute distress, other (confused) - EENT Eyes: Present: PERRL - Neck Neck: Present: supple - Respiratory Respiratory: bilateral: CTA - Cardiovascular Rhythm: regular Heart Sounds: Present: S1 & S2 - Extremities Extremities: no ischemia - Abdominal General gastrointestinal: soft, non-tender - Integumentary Integumentary: Present: clear, warm, dry - Psychiatric Psychiatric: no appropriate mood/affect, no intact judgment & insight - Neurologic Neurologic: CNII-XII intact, no focal deficits - Constitutional Vitals: Temp Pulse Resp BP Pulse Ox 99.0 F 122 H 27 H 147/75 92 10/15/18 08:00 10/15/18 10:31 10/15/18 10:31 10/15/18 10:31 10/15/18 10:31 General appearance: Present: other (confused) Results - Labs CBC & Chem 7: 10/16/18 05:26 10/16/18 05:26 Labs: Laboratory Last Values WBC 8.7 K/mm3 (4.5-11.0) 10/15/18 04:12 RBC 3.22 M/mm3 (3.65-5.03) L 10/15/18 04:12 Hgb 11.0 gm/dl (10.1-14.3) 10/15/18 04:12 Hct 32.0 % (30.3-42.9) 10/15/18 04:12 MCV 99 fl (79-97) H 10/15/18 04:12 MCH 34 pg (28-32) H 10/15/18 04:12 MCHC 34 % (30-34) 10/15/18 04:12 RDW 14.4 % (13.2-15.2) 10/15/18 04:12 Plt Count 153 K/mm3 (140-440) 10/15/18 04:12 Lymph % (Auto) 6.4 % (13.4-35.0) L 10/14/18 04:36 [place] % (Auto) 4.4 % (0.0-7.3) 10/14/18 04:36 Eos % (Auto) 0.4 % (0.0-4.3) 10/14/18 04:36 Baso % (Auto) 0.4 % (0.0-1.8) 10/14/18 04:36 Lymph # 1.1 K/mm3 (1.2-5.4) L 10/14/18 04:36 [place] # 0.7 K/mm3 (0.0-0.8) 10/14/18 04:36 Eos # 0.1 K/mm3 (0.0-0.4) 10/14/18 04:36 Baso # 0.1 K/mm3 (0.0-0.1) 10/14/18 04:36 Add Manual Diff Complete 10/15/18 04:12 Total Counted 100 10/15/18 04:12 Seg Neutrophils % 88.4 % (40.0-70.0) H 10/14/18 04:36 Seg Neuts % (Manual) 83.0 % (40.0-70.0) H 10/15/18 04:12 2.0 % 10/15/18 04:12 10.0 % (13.4-35.0) L 10/15/18 04:12 Reactive Lymphs % (Man) 0 % 10/15/18 04:12 4.0 % (0.0-7.3) 10/15/18 04:12 0 % (0.0-4.3) 10/15/18 04:12 0 % (0.0-1.8) 10/15/18 04:12 1.0 % 10/15/18 04:12 0 % 10/15/18 04:12 0 % 10/15/18 04:12 0 % 10/15/18 04:12 Nucleated RBC % Not Reportable 10/15/18 04:12 Seg Neutrophils # 14.6 K/mm3 (1.8-7.7) H 10/14/18 04:36 Seg Neutrophils # Man 7.2 K/mm3 (1.8-7.7) 10/15/18 04:12 Band Neutrophils # 0.2 K/mm3 10/15/18 04:12 0.9 K/mm3 (1.2-5.4) L 10/15/18 04:12 Abs React Lymphs (Man) 0.0 K/mm3 10/15/18 04:12 0.3 K/mm3 (0.0-0.8) 10/15/18 04:12 0.0 K/mm3 (0.0-0.4) 10/15/18 04:12 0.0 K/mm3 (0.0-0.1) 10/15/18 04:12 0.1 K/mm3 10/15/18 04:12 0.0 K/mm3 10/15/18 04:12 0.0 K/mm3 10/15/18 04:12 Blast Cells # 0.0 K/mm3 10/15/18 04:12 WBC Morphology Not Reportable 10/15/18 04:12 Hypersegmented Neuts Not Reportable 10/15/18 04:12 Hyposegmented Neuts Not Reportable 10/15/18 04:12 Hypogranular Neuts Not Reportable 10/15/18 04:12 Not Reportable 10/15/18 04:12 Not Reportable 10/15/18 04:12 Not Reportable 10/15/18 04:12 Not Reportable 10/15/18 04:12 Not Reportable 10/15/18 04:12 Not Reportable 10/15/18 04:12 Consistent w auto 10/15/18 04:12 Not Reportable 10/15/18 04:12 Plt Clumps, EDTA Not Reportable 10/15/18 04:12 Not Reportable 10/15/18 04:12 Not Reportable 10/15/18 04:12 Not Reportable 10/15/18 04:12 Plt Morphology Comment Not Reportable 10/15/18 04:12 RBC Morphology Not Reportable 10/15/18 04:12 Dimorphic RBCs Not Reportable 10/15/18 04:12 Not Reportable 10/15/18 04:12 Not Reportable 10/15/18 04:12 Not Reportable 10/15/18 04:12 Few 10/15/18 04:12 Not Reportable 10/15/18 04:12 Not Reportable 10/15/18 04:12 Not Reportable 10/15/18 04:12 Not Reportable 10/15/18 04:12 Not Reportable 10/15/18 04:12 Not Reportable 10/15/18 04:12 Not Reportable 10/15/18 04:12 Not Reportable 10/15/18 04:12 Not Reportable 10/15/18 04:12 Not Reportable 10/15/18 04:12 Not Reportable 10/15/18 04:12 Not Reportable 10/15/18 04:12 Not Reportable 10/15/18 04:12 Not Reportable 10/15/18 04:12 Not Reportable 10/15/18 04:12 Acanthocytes (Spur) Not Reportable 10/15/18 04:12 Rouleaux Not Reportable 10/15/18 04:12 Not Reportable 10/15/18 04:12 Not Reportable 10/15/18 04:12 Not Reportable 10/15/18 04:12 Not Reportable 10/15/18 04:12 Hem Pathologist Commnt No 10/15/18 04:12 APTT 30.9 Sec. (24.2-36.6) 10/13/18 09:17 Sodium 147 mmol/L (137-145) H 10/15/18 04:12 Potassium 4.1 mmol/L (3.6-5.0) 10/15/18 04:12 Chloride 107.9 mmol/L (98-107) H 10/15/18 04:12 Carbon Dioxide 26 mmol/L (22-30) 10/15/18 04:12 17 mmol/L 10/15/18 04:12 BUN 31 mg/dL (7-17) H 10/15/18 04:12 1.8 mg/dL (0.7-1.2) H 10/15/18 04:12 Estimated GFR 28 ml/min 10/15/18 04:12 17 % 10/15/18 04:12 Glucose 162 mg/dL (65-100) H 10/15/18 04:12 POC Glucose 164 (70-105) H 10/15/18 05:29 5.5 % (4-6) 10/13/18 09:17 Lactic Acid 3.30 mmol/L (0.7-2.0) H* 10/14/18 11:23 Calcium 7.6 mg/dL (8.4-10.2) L 10/15/18 04:12 Phosphorus 4.50 mg/dL (2.5-4.5) 10/15/18 04:12 0.20 mg/dL (0.1-1.2) 10/13/18 11:09 AST 73 units/L (5-40) H 10/13/18 11:09 ALT 18 units/L (7-56) 10/13/18 11:09 268 units/L (35-129) H 10/13/18 11:09 72.0 umol/L (25-60) H 10/13/18 09:17 1935 units/L (30-135) H 10/14/18 11:23 0.029 ng/mL (0.00-0.029) 10/13/18 09:17 6.0 g/dL (6.3-8.2) L 10/13/18 11:09 3.0 g/dL (3.9-5) L 10/13/18 11:09 1.0 % 10/13/18 11:09 17 units/L (13-60) 10/13/18 09:17 TSH 2.920 mlU/mL (0.270-4.200) 10/13/18 09:17 Yellow (Yellow) 10/13/18 08:32 Turbid (Clear) 10/13/18 08:32 5.0 (5.0-7.0) 10/13/18 08:32 Ur Specific [place] 1.016 (1.003-1.030) 10/13/18 08:32 >500 mg/dL (Negative) 10/13/18 08:32 Neg mg/dL (Negative) 10/13/18 08:32 Tr mg/dL (Negative) 10/13/18 08:32 Neg (Negative) 10/13/18 08:32 Neg (Negative) 10/13/18 08:32 Neg (Negative) 10/13/18 08:32 < 2.0 mg/dL (<2.0) 10/13/18 08:32 Ur Leukocyte Esterase Mod (Negative) 10/13/18 08:32 > 182.0 /HPF (0.0-6.0) H 10/13/18 08:32 12.0 /HPF (0.0-6.0) 10/13/18 08:32 U Epithel Cells (Auto) 3.0 /HPF (0-13.0) 10/13/18 08:32 2+ /HPF (Negative) 10/13/18 08:32 3+ /HPF 10/13/18 08:32 Few /HPF 10/13/18 08:32 Hepatitis A IgM Ab Non-reactive (NonReactive) 10/13/18 18:08 Hep Bs Antigen Non-reactive (Negative) 10/13/18 18:08 Hep B Core IgM Ab Non-reactive (NonReactive) 10/13/18 18:08 Reactive (NonReactive) A 10/13/18 18:08 Active Medications - Current Medications Current Medications: Generic Name Dose Route Start Last Admin Trade Name Freq PRN Reason Stop Dose Admin Acetaminophen 650 mg 10/13/18 19:41 Tylenol PO Q4H PRN Pain MILD(1-3)/Fever >100.5/[place] Albuterol 2.5 mg 10/14/18 10:38 Proventil IH Q4HRT PRN Shortness Of Breath Albuterol/Ipratropium 1 ampul 10/14/18 14:00 10/15/18 07:17 Duoneb *Not For Prn Use* IH 1 ampul TIDRT LUDA Administration Bisacodyl 10 mg 10/14/18 16:00 10/15/18 09:33 Dulcolax [place] 10 mg QDAY LUDA Administration Hydromorphone HCl 0.5 mg 10/14/18 12:23 10/15/18 03:58 Dilaudid IV 0.5 mg Q3H PRN Administration Pain , Severe (7-10) Sodium Chloride 100 mls @ 999 mls/hr 10/13/18 16:23 Nacl 0.9% IV STEVE PRN Hypotension Cefepime HCl 1 gm in 100 mls @ 200 mls/hr 10/15/18 10:00 10/15/18 09:33 Maxipime/Ns 1 Gm/100 Ml IV 200 mls/hr Q24HR LUDA Administration Protocol Dextrose/Sodium Chloride 1,000 mls @ 75 mls/hr 10/14/18 10:00 10/15/18 01:58 D5ns IV 75 mls/hr DIRECT LUDA Administration Insulin Human Lispro 0 unit 10/14/18 06:00 10/15/18 05:50 Humalog SUB-Q 2 unit Q6HR LUDA Administration Protocol Metoclopramide HCl 10 mg 10/13/18 19:41 Reglan IV Q6H PRN Nausea And Vomiting Nicotine 14 mg 10/14/18 10:00 10/15/18 09:33 Habitrol TD 14 mg QDAY LUDA Administration Ondansetron HCl 4 mg 10/13/18 19:41 10/15/18 03:58 Zofran IV 4 mg Q3H PRN Administration Nausea And Vomiting Pantoprazole Sodium 40 mg 10/14/18 22:00 10/15/18 09:33 Protonix IV 40 mg BID LUDA Administration Sodium Chloride 10 ml 10/13/18 22:00 10/14/18 22:53 Sodium Chloride Flush Syringe 10 Ml IV 10 ml BID LUDA Administration Sodium Chloride 10 ml 10/13/18 19:41 Sodium Chloride Flush Syringe 10 Ml IV PRN PRN LINE FLUSH Nutrition/Malnutrition Assess - Dietary Evaluation Nutrition/Malnutrition Findings: Nutrition Notes Start: 10/14/18 11:37 Freq: Status: Active Protocol: Document 10/14/18 11:37 LP (Rec: 10/14/18 11:41 LP [id number]) 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 Pt sleeping at time of vist. Pt with NGT. Burn Absent Trauma Absent #1 Nutrition Diagnosis Inadequate oral intake Etiology AMS As Evidenced by Signs and Symptoms Pt with NGT and NPO Is patient on ventilator? No Is Patient Ambulatory and/or Out of Bed Yes REE-([facility]-ambulatory/OOB) [ 1432.925 NUTR.MSJOOB] Calculation Used for Recommendations [facility] Additional Notes Protein needs are 74-124g (1.2 -2g/kg) Fluid needs are 1ml/kcal Nutrition Intervention Change Diet Order: Advance diet as feasible Goal #1 Advance diet as feasible Anticipated Discharge Needs: Unable to determine at this time Follow-Up By: 10/16/18 Additional Comments Follow for assessment needs, diet advancement
--- NOTE | 2018-10-15 12:48 | Progress Note ---
Assessment and Plan 67 yo F with 1. abdominal pain - CT scan with pSBO, fecal retention. Pt with hx of duodenal ulcer 2. sepsis 3. UTI 4. hyperkalemia 5. acute renal failure 6. AMS Abdominal exam improved and minimal output from NGT now over 48 hours. 1 small BM yesterday Obstruction series 10/14/18 - no evidence of obstruction. fecal retention Plan: 1. dc NGT 2. IVF 3. bowel regimen - colace BID, miralax daily, and dulcolax SD daily 4. start clear liquid diet 5. PPI BID, add carafate 6. IV abx per 1' team 7. trend labs 8. nephro on board D/w patient's RN Viri Thank you, please call with questions. Subjective Date of service: 10/15/18 Narrative: Pt seen and examined. Confused and in mittens. States she feels ok. Had one small BM per nursing. Objective Vital Signs - 12hr 10/15/18 10/15/18 10/15/18 01:00 01:30 02:00 Temperature Pulse Rate 122 H 123 H 124 H Pulse Rate [ Anterior Bilateral Throughout] Pulse Rate [ Radial] Respiratory 33 H 39 H 36 H Rate Respiratory Rate [Anterior Bilateral Throughout] Blood Pressure 135/67 135/64 147/73 O2 Sat by Pulse 94 93 93 Oximetry 10/15/18 10/15/18 10/15/18 02:30 03:00 03:30 Temperature Pulse Rate 122 H 125 H 123 H Pulse Rate [ Anterior Bilateral Throughout] Pulse Rate [ Radial] Respiratory 36 H 42 H 57 H Rate Respiratory Rate [Anterior Bilateral Throughout] Blood Pressure 140/66 140/66 142/68 O2 Sat by Pulse 93 92 93 Oximetry 10/15/18 10/15/18 10/15/18 03:58 04:00 04:30 Temperature 99.9 F H Pulse Rate 126 H 118 H Pulse Rate [ Anterior Bilateral Throughout] Pulse Rate [ Radial] Respiratory 40 H 24 23 Rate Respiratory Rate [Anterior Bilateral Throughout] Blood Pressure 136/113 121/48 O2 Sat by Pulse 91 94 Oximetry 10/15/18 10/15/18 10/15/18 05:00 05:30 06:00 Temperature Pulse Rate 115 H 115 H 113 H Pulse Rate [ Anterior Bilateral Throughout] Pulse Rate [ 119 H Radial] Respiratory 22 24 22 Rate Respiratory Rate [Anterior Bilateral Throughout] Blood Pressure 131/51 135/61 128/56 O2 Sat by Pulse 95 95 95 Oximetry 10/15/18 10/15/18 10/15/18 06:30 07:00 07:28 Temperature Pulse Rate 113 H 111 H Pulse Rate [ 115 H Anterior Bilateral Throughout] Pulse Rate [ Radial] Respiratory 24 23 Rate Respiratory 22 Rate [Anterior Bilateral Throughout] Blood Pressure 127/56 129/56 O2 Sat by Pulse 95 95 Oximetry 10/15/18 10/15/18 10/15/18 07:30 08:00 08:01 Temperature 99.0 F Pulse Rate 112 H 114 H Pulse Rate [ Anterior Bilateral Throughout] Pulse Rate [ Radial] Respiratory 24 25 H Rate Respiratory Rate [Anterior Bilateral Throughout] Blood Pressure 128/58 137/65 O2 Sat by Pulse 96 93 Oximetry 10/15/18 10/15/18 10/15/18 08:31 09:00 09:02 Temperature Pulse Rate 118 H 118 H Pulse Rate [ Anterior Bilateral Throughout] Pulse Rate [ Radial] Respiratory 27 H 36 H Rate Respiratory Rate [Anterior Bilateral Throughout] Blood Pressure 137/65 140/72 O2 Sat by Pulse 89 93 93 Oximetry 10/15/18 10/15/18 10/15/18 09:30 10:00 10:31 Temperature Pulse Rate 117 H 118 H 122 H Pulse Rate [ Anterior Bilateral Throughout] Pulse Rate [ Radial] Respiratory 36 H 34 H 27 H Rate Respiratory Rate [Anterior Bilateral Throughout] Blood Pressure 156/66 147/75 147/75 O2 Sat by Pulse 94 92 92 Oximetry 10/15/18 10/15/18 10/15/18 11:00 11:31 12:00 Temperature 98.3 F Pulse Rate 119 H 117 H Pulse Rate [ Anterior Bilateral Throughout] Pulse Rate [ Radial] Respiratory 40 H 36 H Rate Respiratory Rate [Anterior Bilateral Throughout] Blood Pressure 144/60 144/60 O2 Sat by Pulse 92 Oximetry 10/15/18 12:01 Temperature Pulse Rate 124 H Pulse Rate [ Anterior Bilateral Throughout] Pulse Rate [ Radial] Respiratory 32 H Rate Respiratory Rate [Anterior Bilateral Throughout] Blood Pressure 144/60 O2 Sat by Pulse 92 Oximetry - General physical appearance Narrative Exam: Gen: Awake and alert. Confused. Answers some questions appropriately. ENT; NGT with scant dark brown drainage CV; s1, S2+ tachy Resp; even and unlabored Abd: soft, NT, ND Ext: no c/c/e - Labs 10/15/18 04:12 10/15/18 04:12 Diabetes panel 10/15/18 Range/Units 04:12 Sodium 147 H (137-145) mmol/L Potassium 4.1 (3.6-5.0) mmol/L Chloride 107.9 H (98-107) mmol/L Carbon Dioxide 26 (22-30) mmol/L BUN 31 H (7-17) mg/dL Creatinine 1.8 H (0.7-1.2) mg/dL Glucose 162 H (65-100) mg/dL Calcium 7.6 L (8.4-10.2) mg/dL Calcium panel 10/15/18 Range/Units 04:12 Calcium 7.6 L (8.4-10.2) mg/dL Phosphorus 4.50 (2.5-4.5) mg/dL Pituitary panel 10/15/18 Range/Units 04:12 Sodium 147 H (137-145) mmol/L Potassium 4.1 (3.6-5.0) mmol/L Chloride 107.9 H (98-107) mmol/L Carbon Dioxide 26 (22-30) mmol/L BUN 31 H (7-17) mg/dL Creatinine 1.8 H (0.7-1.2) mg/dL Glucose 162 H (65-100) mg/dL Calcium 7.6 L (8.4-10.2) mg/dL Adrenal panel 10/15/18 Range/Units 04:12 Sodium 147 H (137-145) mmol/L Potassium 4.1 (3.6-5.0) mmol/L Chloride 107.9 H (98-107) mmol/L Carbon Dioxide 26 (22-30) mmol/L BUN 31 H (7-17) mg/dL Creatinine 1.8 H (0.7-1.2) mg/dL Glucose 162 H (65-100) mg/dL Calcium 7.6 L (8.4-10.2) mg/dL
[2018-10-15] MEDS: MIRALAX 3350 PO SCH (13:42)
[2018-10-15 14:03] LABS: Bilirubin,Urine NEG (Negative); Blood,Urine MOD (Negative); Color,Urine Amber (Yellow); Mucus,Urine FEW /HPF; Urobilinogen,Urine < 2.0 mg/dL (<2.0)
--- NOTE | 2018-10-15 14:31 | Progress Note ---
Assessment and Plan Acute kidney injury, likely ischemic ATN, baseline Cr was normal Hyperkalemia secondary to ARF and lisinopril AG metabolic acidosis secondary to ARF and lactic acidosis Urospesis Metabolic encephalopathy - Renal function reviewed. Serum creatinine 1.8 today, yesterday's was 1.5, non- oliguric - Received 1 HD treatment on 10/13/18 due to Hyperkalemia and severe renal failure - No acute indication for HD today - Start NS@ 75 ml/hr - Urine eos and CK- pending - Renal ultrasound-no acute findings. No Hydronephrosis. - Strict I&O monitoring- nuñez catheter in place, UOP 975 ml - Obtain daily weights - Renally dose medications - Avoid nephrotoxic agents - Continue to monitor renal function - Plan of care reviewed with Dr. Carpenter Subjective Date of service: 10/15/18 Principal diagnosis: ARF Interval history: Patient seen lying in bed and requesting water. Patient yelling that she needs water right now. Notified RN. Objective - Vital Signs Vital signs: Vital Signs - 12hr 10/15/18 10/15/18 10/15/18 02:30 03:00 03:30 Temperature Pulse Rate 122 H 125 H 123 H Pulse Rate [ Anterior Bilateral Throughout] Pulse Rate [ Radial] Respiratory 36 H 42 H 57 H Rate Respiratory Rate [Anterior Bilateral Throughout] Blood Pressure 140/66 140/66 142/68 O2 Sat by Pulse 93 92 93 Oximetry 10/15/18 10/15/18 10/15/18 03:58 04:00 04:30 Temperature 99.9 F H Pulse Rate 126 H 118 H Pulse Rate [ Anterior Bilateral Throughout] Pulse Rate [ Radial] Respiratory 40 H 24 23 Rate Respiratory Rate [Anterior Bilateral Throughout] Blood Pressure 136/113 121/48 O2 Sat by Pulse 91 94 Oximetry 10/15/18 10/15/18 10/15/18 05:00 05:30 06:00 Temperature Pulse Rate 115 H 115 H 113 H Pulse Rate [ Anterior Bilateral Throughout] Pulse Rate [ 119 H Radial] Respiratory 22 24 22 Rate Respiratory Rate [Anterior Bilateral Throughout] Blood Pressure 131/51 135/61 128/56 O2 Sat by Pulse 95 95 95 Oximetry 10/15/18 10/15/18 10/15/18 06:30 07:00 07:28 Temperature Pulse Rate 113 H 111 H Pulse Rate [ 115 H Anterior Bilateral Throughout] Pulse Rate [ Radial] Respiratory 24 23 Rate Respiratory 22 Rate [Anterior Bilateral Throughout] Blood Pressure 127/56 129/56 O2 Sat by Pulse 95 95 Oximetry 10/15/18 10/15/18 10/15/18 07:30 08:00 08:01 Temperature 99.0 F Pulse Rate 112 H 114 H Pulse Rate [ Anterior Bilateral Throughout] Pulse Rate [ Radial] Respiratory 24 25 H Rate Respiratory Rate [Anterior Bilateral Throughout] Blood Pressure 128/58 137/65 O2 Sat by Pulse 96 93 Oximetry 10/15/18 10/15/18 10/15/18 08:31 09:00 09:02 Temperature Pulse Rate 118 H 118 H Pulse Rate [ Anterior Bilateral Throughout] Pulse Rate [ Radial] Respiratory 27 H 36 H Rate Respiratory Rate [Anterior Bilateral Throughout] Blood Pressure 137/65 140/72 O2 Sat by Pulse 89 93 93 Oximetry 10/15/18 10/15/18 10/15/18 09:30 10:00 10:31 Temperature Pulse Rate 117 H 118 H 122 H Pulse Rate [ Anterior Bilateral Throughout] Pulse Rate [ Radial] Respiratory 36 H 34 H 27 H Rate Respiratory Rate [Anterior Bilateral Throughout] Blood Pressure 156/66 147/75 147/75 O2 Sat by Pulse 94 92 92 Oximetry 10/15/18 10/15/18 10/15/18 11:00 11:31 12:00 Temperature 98.3 F Pulse Rate 119 H 117 H Pulse Rate [ Anterior Bilateral Throughout] Pulse Rate [ Radial] Respiratory 40 H 36 H Rate Respiratory Rate [Anterior Bilateral Throughout] Blood Pressure 144/60 144/60 O2 Sat by Pulse 92 Oximetry 10/15/18 10/15/18 10/15/18 12:01 12:30 13:01 Temperature Pulse Rate 124 H 119 H 121 H Pulse Rate [ Anterior Bilateral Throughout] Pulse Rate [ Radial] Respiratory 32 H 39 H 23 Rate Respiratory Rate [Anterior Bilateral Throughout] Blood Pressure 144/60 147/66 147/66 O2 Sat by Pulse 92 89 86 Oximetry 10/15/18 10/15/18 13:31 14:00 Temperature Pulse Rate 120 H 116 H Pulse Rate [ Anterior Bilateral Throughout] Pulse Rate [ Radial] Respiratory 33 H 30 H Rate Respiratory Rate [Anterior Bilateral Throughout] Blood Pressure 147/66 143/62 O2 Sat by Pulse 89 90 Oximetry - General Appearance General appearance: well-developed, appears stated age, fatigue EENT: ATNC, PERRL, hearing intact, vision intact Neck: no JVD, supple Respiratory: Present: Decreased Breath Sounds Cardiology: tachycardia, S1S2 Gastrointestinal: normoactive bowel sounds Integumentary: warm and dry Neurologic: other (Awake and alert) Musculoskeletal: other (No edema) Psychiatric: agitated - Lab 10/15/18 04:12 10/15/18 04:12 Most recent lab results Calcium 7.6 mg/dL (8.4-10.2) L 10/15/18 04:12 Phosphorus 4.50 mg/dL (2.5-4.5) 10/15/18 04:12 Medications & Allergies - Medications Allergies/Adverse Reactions: Allergies Sulfa (Sulfonamide Antibiotics) Allergy (Verified 05/09/18 17:10) Rash Home Medications: Home Medications Medication Instructions Recorded Confirmed Last Taken Type amLODIPine [Norvasc] 10 mg PO DAILY 02/21/18 10/13/18 10/12/18 History Lisinopril [Zestril] 10 mg PO DAILY 05/10/18 10/13/18 10/12/18 History Pantoprazole [Protonix TAB] 40 mg PO BID #60 tablet 05/14/18 10/13/18 10/12/18 Rx traMADol [Ultram 50 MG tab] 50 mg PO Q8H PRN #20 tablet 05/24/18 10/13/18 10/12/18 Rx Amitriptyline [Elavil] 25 mg PO QHS 10/13/18 10/13/18 10/12/18 History Bimatoprost [Lumigan 0.01%] 1 drop OP QPM 10/13/18 10/13/18 10/12/18 History Clopidogrel [Plavix] 75 mg PO QDAY 10/13/18 10/13/18 10/12/18 History Cyclobenzaprine [Flexeril 10 MG 10 mg PO BID 10/13/18 10/13/18 10/12/18 History TAB] Gabapentin [Neurontin] 600 mg PO Q8H 10/13/18 10/13/18 10/12/18 History metFORMIN [Glucophage] 500 mg PO QDAY 10/13/18 10/13/18 10/12/18 History Active Medications: Generic Name Dose Route Start Last Admin Trade Name Freq PRN Reason Stop Dose Admin Acetaminophen 650 mg 10/13/18 19:41 Tylenol PO Q4H PRN Pain MILD(1-3)/Fever >100.5/[place] Albuterol 2.5 mg 10/14/18 10:38 Proventil IH Q4HRT PRN Shortness Of Breath Albuterol/Ipratropium 1 ampul 10/14/18 14:00 10/15/18 13:38 Duoneb *Not For Prn Use* IH Not Given TIDRT LUDA Bisacodyl 10 mg 10/14/18 16:00 10/15/18 09:33 Dulcolax [place] 10 mg QDAY LUDA Administration Docusate Sodium 100 mg 10/15/18 22:00 Colace PO BID LUDA Hydromorphone HCl 0.5 mg 10/14/18 12:23 10/15/18 03:58 Dilaudid IV 0.5 mg Q3H PRN Administration Pain , Severe (7-10) Sodium Chloride 100 mls @ 999 mls/hr 10/13/18 16:23 Nacl 0.9% IV STEVE PRN Hypotension Cefepime HCl 1 gm in 100 mls @ 200 mls/hr 10/15/18 10:00 10/15/18 09:33 Maxipime/Ns 1 Gm/100 Ml IV 200 mls/hr Q24HR LUDA Administration Protocol Insulin Human Lispro 0 unit 10/15/18 16:30 Humalog SUB-Q ACHS [facility] Protocol Metoclopramide HCl 10 mg 10/13/18 19:41 Reglan IV Q6H PRN Nausea And Vomiting Nicotine 14 mg 10/14/18 10:00 10/15/18 09:33 Habitrol TD 14 mg QDAY LUDA Administration Ondansetron HCl 4 mg 10/13/18 19:41 10/15/18 03:58 Zofran IV 4 mg Q3H PRN Administration Nausea And Vomiting Pantoprazole Sodium 40 mg 10/14/18 22:00 10/15/18 09:33 Protonix IV 40 mg BID LUDA Administration Polyethylene Glycol 17 gm 10/15/18 13:00 10/15/18 13:42 Miralax 3350 PO 17 gm QDAY LUDA Administration Sodium Chloride 10 ml 10/13/18 22:00 10/15/18 10:15 Sodium Chloride Flush Syringe 10 Ml IV Not Given BID LUDA Sodium Chloride 10 ml 10/13/18 19:41 Sodium Chloride Flush Syringe 10 Ml IV PRN PRN LINE FLUSH Sucralfate 1 gm 10/15/18 16:30 Carafate PO ACHS LUDA
[2018-10-15] MEDS: CARAFATE PO SCH ×2 (19:40→22:20)
[2018-10-15] MEDS: TYLENOL PO PRN (22:19)
[2018-10-15] MEDS: NACL 0.9% 1000 ML 1,000 ML IV SCH (22:21)
[2018-10-15] MEDS: COLACE PO SCH (23:43)
[2018-10-16] MEDS: DILAUDID IV PRN (02:03)
[2018-10-16 06:10] LABS: Hematocrit 28.1 % (30.3-42.9); Hemoglobin 9.5 gm/dl (10.1-14.3); Mean Corpuscular HGB Conc 34 % (30-34); Mean Corpuscular Volume 100 fl (79-97); Platelet Count 138 K/mm3 (140-440); Red Cell Distribution Width 14.3 % (13.2-15.2)
[2018-10-16 06:32] LABS: Calcium 7.7 mg/dL (8.4-10.2)
[2018-10-16 07:30] LABS: Band Neutrophils # (Manual) 0.2 K/mm3; Basophils % (Manual) 0 % (0.0-1.8); Eosinophils % (Manual) 0 % (0.0-4.3); Total Cells Counted 100
[2018-10-16 07:31] LABS: Anisocytosis Few; Platelet Estimate Consistent w Auto
[2018-10-16] MEDS: SODIUM CHLORIDE FLUSH SYRINGE 10 ML IV SCH ×2 (08:00→22:48)
[2018-10-16] MEDS: CARAFATE PO SCH ×5 (08:00→22:02)
--- NOTE | 2018-10-16 09:18 | Progress Note ---
Assessment and Plan Acute kidney injury, likely ischemic ATN, baseline Cr was normal Hyperkalemia secondary to ARF and lisinopril AG metabolic acidosis secondary to ARF and lactic acidosis Urospesis Metabolic encephalopathy - Cr overall stable, good UOP, if remains stable by tomorrow will remove vascath - No acute indication for HD today - Renal ultrasound-no acute findings. No Hydronephrosis. - Obtain daily weights - Renally dose medications - Avoid nephrotoxic agents - Continue to monitor renal function Eric Bae MD [phone] Subjective Date of service: 10/16/18 Principal diagnosis: ARF Interval history: follows simple commands, no family at bedside Objective - Vital Signs Vital signs: Vital Signs - 12hr 10/15/18 10/15/18 10/15/18 22:00 22:19 22:23 Temperature Pulse Rate 122 H Respiratory 20 20 20 Rate Blood Pressure O2 Sat by Pulse 92 Oximetry 10/15/18 10/15/18 10/16/18 22:53 23:19 01:57 Temperature 100.1 F H Pulse Rate 114 H Respiratory 20 20 18 Rate Blood Pressure 141/66 O2 Sat by Pulse 94 Oximetry 10/16/18 10/16/18 10/16/18 02:03 02:33 07:02 Temperature 100.7 F H Pulse Rate 113 H Respiratory 20 18 18 Rate Blood Pressure 148/61 O2 Sat by Pulse 87 Oximetry 10/16/18 08:00 Temperature Pulse Rate Respiratory Rate Blood Pressure O2 Sat by Pulse 94 Oximetry - General Appearance General appearance: well-developed, well-nourished, appears stated age EENT: ATNC, PERRL, mucous membranes moist Neck: no JVD, no carotid bruit Respiratory: Present: Clear to Ascultation. Absent: Rales, Ronchi Cardiology: regular, S1S2 Gastrointestinal: normoactive bowel sounds, no tenderness, no distended Integumentary: no rash, warm and dry, other Neurologic: no focal deficit Musculoskeletal: other (follows simple commands) Psychiatric: other (does not answer questions) - Lab 10/16/18 05:26 10/16/18 05:26 Most recent lab results Calcium 7.7 mg/dL (8.4-10.2) L 10/16/18 05:26 Phosphorus 3.70 mg/dL (2.5-4.5) 10/16/18 05:26 103.2 mg/dL (0.1-20.0) H 10/15/18 12:27 Medications & Allergies - Medications Allergies/Adverse Reactions: Allergies Sulfa (Sulfonamide Antibiotics) Allergy (Verified 05/09/18 17:10) Rash Home Medications: Home Medications Medication Instructions Recorded Confirmed Last Taken Type amLODIPine [Norvasc] 10 mg PO DAILY 02/21/18 10/13/18 10/12/18 History Lisinopril [Zestril] 10 mg PO DAILY 05/10/18 10/13/18 10/12/18 History Pantoprazole [Protonix TAB] 40 mg PO BID #60 tablet 05/14/18 10/13/18 10/12/18 Rx traMADol [Ultram 50 MG tab] 50 mg PO Q8H PRN #20 tablet 05/24/18 10/13/18 10/12/18 Rx Amitriptyline [Elavil] 25 mg PO QHS 10/13/18 10/13/18 10/12/18 History Bimatoprost [Lumigan 0.01%] 1 drop OP QPM 10/13/18 10/13/18 10/12/18 History Clopidogrel [Plavix] 75 mg PO QDAY 10/13/18 10/13/18 10/12/18 History Cyclobenzaprine [Flexeril 10 MG 10 mg PO BID 10/13/18 10/13/18 10/12/18 History TAB] Gabapentin [Neurontin] 600 mg PO Q8H 10/13/18 10/13/18 10/12/18 History metFORMIN [Glucophage] 500 mg PO QDAY 10/13/18 10/13/18 10/12/18 History Active Medications: Generic Name Dose Route Start Last Admin Trade Name Freq PRN Reason Stop Dose Admin Acetaminophen 650 mg 10/13/18 19:41 10/15/18 22:19 Tylenol PO 650 mg Q4H PRN Administration Pain MILD(1-3)/Fever >100.5/[place] Albuterol 2.5 mg 10/14/18 10:38 Proventil IH Q4HRT PRN Shortness Of Breath Albuterol/Ipratropium 1 ampul 10/14/18 14:00 10/15/18 22:06 Duoneb *Not For Prn Use* IH Not Given TIDRT LUDA Bisacodyl 10 mg 10/14/18 16:00 10/15/18 09:33 Dulcolax [place] 10 mg QDAY LUDA Administration Docusate Sodium 100 mg 10/15/18 22:00 10/15/18 23:43 Colace PO 100 mg BID LUDA Administration Hydromorphone HCl 0.5 mg 10/14/18 12:23 10/16/18 02:03 Dilaudid IV 0.5 mg Q3H PRN Administration Pain , Severe (7-10) Sodium Chloride 100 mls @ 999 mls/hr 10/13/18 16:23 Nacl 0.9% IV STEVE PRN Hypotension Cefepime HCl 1 gm in 100 mls @ 200 mls/hr 10/15/18 10:00 10/15/18 09:33 Maxipime/Ns 1 Gm/100 Ml IV 200 mls/hr Q24HR LUDA Administration Protocol Sodium Chloride 1,000 mls @ 75 mls/hr 10/15/18 16:00 10/15/18 22:21 Nacl 0.9% 1000 Ml IV 75 mls/hr DIRECT LUDA Administration Insulin Human Lispro 0 unit 10/15/18 16:30 10/15/18 22:21 Humalog SUB-Q 2 unit ACHS LUDA Administration Protocol Metoclopramide HCl 10 mg 10/13/18 19:41 Reglan IV Q6H PRN Nausea And Vomiting Nicotine 14 mg 10/14/18 10:00 10/15/18 09:33 Habitrol TD 14 mg QDAY LUDA Administration Ondansetron HCl 4 mg 10/13/18 19:41 10/15/18 03:58 Zofran IV 4 mg Q3H PRN Administration Nausea And Vomiting Pantoprazole Sodium 40 mg 10/14/18 22:00 10/15/18 22:20 Protonix IV 10/16/18 12:59 40 mg BID LUDA Administration Pantoprazole Sodium 40 mg 10/16/18 22:00 Protonix PO BID LUDA Polyethylene Glycol 17 gm 10/15/18 13:00 10/15/18 13:42 Miralax 3350 PO 17 gm QDAY LUDA Administration Sodium Chloride 10 ml 10/13/18 22:00 10/15/18 22:22 Sodium Chloride Flush Syringe 10 Ml IV 10 ml BID LUDA Administration Sodium Chloride 10 ml 10/13/18 19:41 Sodium Chloride Flush Syringe 10 Ml IV PRN PRN LINE FLUSH Sucralfate 1 gm 10/15/18 16:30 10/15/18 22:20 Carafate PO 1 gm ACHS LUDA Administration
[2018-10-16] MEDS: DUONEB *Not for PRN Use IH SCH ×3 (09:27→20:24)
[2018-10-16] MEDS: MAXIPIME/NS 1 GM/100 ML 1 GM/100 ML BAG IV SCH (10:07)
--- NOTE | 2018-10-16 10:07 | Progress Note ---
Assessment and Plan 67 yo F with 1. abdominal pain - CT scan with pSBO, fecal retention. Pt with hx of duodenal ulcer 2. sepsis 3. UTI 4. hyperkalemia 5. acute renal failure 6. AMS Obstruction series 10/14/18 - no evidence of obstruction. fecal retention Patient with 2 large BMs yesterday Plan: 1. adv to soft diet 2. IVF per 1' team 3. c/w bowel regimen - colace BID, miralax and dulcolax prn 4. PPI BID, add carafate - please dc on these meds 5. IV abx per 1' team Will s/o, please call with questions. Subjective Date of service: 10/16/18 Narrative: Pt seen and examined. States she had a lot of BMs and that she could not sleep overnight. Tolerates clear liquid diet. No f/c. Objective Vital Signs - 12hr 10/15/18 10/15/18 10/15/18 22:19 22:23 22:53 Temperature Pulse Rate Pulse Rate [ Anterior Bilateral Throughout] Respiratory 20 20 20 Rate Respiratory Rate [Anterior Bilateral Throughout] Blood Pressure O2 Sat by Pulse Oximetry 10/15/18 10/16/18 10/16/18 23:19 01:57 02:03 Temperature 100.1 F H Pulse Rate 114 H Pulse Rate [ Anterior Bilateral Throughout] Respiratory 20 18 20 Rate Respiratory Rate [Anterior Bilateral Throughout] Blood Pressure 141/66 O2 Sat by Pulse 94 Oximetry 10/16/18 10/16/18 10/16/18 02:33 07:02 08:00 Temperature 100.7 F H Pulse Rate 113 H Pulse Rate [ Anterior Bilateral Throughout] Respiratory 18 18 Rate Respiratory Rate [Anterior Bilateral Throughout] Blood Pressure 148/61 O2 Sat by Pulse 87 94 Oximetry 10/16/18 10/16/18 09:30 09:41 Temperature Pulse Rate Pulse Rate [ 112 H Anterior Bilateral Throughout] Respiratory Rate Respiratory 18 Rate [Anterior Bilateral Throughout] Blood Pressure O2 Sat by Pulse 94 Oximetry - General physical appearance Narrative Exam: Gen: Awake and alert. Confused. Hard to follow train of thought and needs to be redirected very frequently. CV; s1, S2+ tachy Resp; even and unlabored Abd: soft, NT, mild LUQ TTP abd fullness Ext: no c/c/e - Labs 10/16/18 05:26 10/16/18 05:26 Diabetes panel 10/16/18 Range/Units 05:26 Sodium 141 (137-145) mmol/L Potassium 3.6 (3.6-5.0) mmol/L Chloride 106.9 (98-107) mmol/L Carbon Dioxide 23 (22-30) mmol/L BUN 32 H (7-17) mg/dL Creatinine 1.5 H (0.7-1.2) mg/dL Glucose 139 H (65-100) mg/dL Calcium 7.7 L (8.4-10.2) mg/dL Calcium panel 10/16/18 Range/Units 05:26 Calcium 7.7 L (8.4-10.2) mg/dL Phosphorus 3.70 (2.5-4.5) mg/dL Pituitary panel 10/16/18 Range/Units 05:26 Sodium 141 (137-145) mmol/L Potassium 3.6 (3.6-5.0) mmol/L Chloride 106.9 (98-107) mmol/L Carbon Dioxide 23 (22-30) mmol/L BUN 32 H (7-17) mg/dL Creatinine 1.5 H (0.7-1.2) mg/dL Glucose 139 H (65-100) mg/dL Calcium 7.7 L (8.4-10.2) mg/dL Adrenal panel 10/16/18 Range/Units 05:26 Sodium 141 (137-145) mmol/L Potassium 3.6 (3.6-5.0) mmol/L Chloride 106.9 (98-107) mmol/L Carbon Dioxide 23 (22-30) mmol/L BUN 32 H (7-17) mg/dL Creatinine 1.5 H (0.7-1.2) mg/dL Glucose 139 H (65-100) mg/dL Calcium 7.7 L (8.4-10.2) mg/dL
[2018-10-16] MEDS: DULCOLAX PR SCH (10:12)
[2018-10-16] MEDS: PROTONIX IV SCH (10:12)
[2018-10-16] MEDS: HABITROL TD SCH (10:13)
[2018-10-16] MEDS: COLACE PO SCH ×2 (10:13→22:02)
[2018-10-16] MEDS: MIRALAX 3350 PO SCH (10:13)
[2018-10-16] MEDS: HumaLOG SUB-Q SCH ×4 (10:20→22:17)
--- NOTE | 2018-10-16 13:15 | Progress Note ---
Assessment and Plan Severe Sepsis Acute encephalopathy Acute kidney injury secondary to ATN Hyperkalemia severe Small bowel obstruction Abdominal Pain Rhabdomyolysis - prn antiemetics - consider KUB - laxatives for bowel regimen - continue suppplemental oxygen to keep O2 sats >90% - continue BIPAP scheduled qhs (if tolerates) - supportive transfusions as needed to keep HgB >7g/dL - continue VTE prophylaxis ( SCDs) - continue PPI therapy - continue bronchodilators with pulmonary hygiene per RT - continue mobility protocol for pressure ulcer prophylaxis - PT/OT as tolerated - continue close monitoring of renal function and hemodynamics - continue accuchecks with glycemic control per SSI for target blood glucose 140-180mg/dL - continue other care per attending / other consultants .... re-evaluate in am & prn Subjective Date of service: 10/16/18 Principal diagnosis: Severe Sepsis; Ac encephalopathy; JENNIFER; Hyperkalemia; SBO; Rhabdomyolysis Interval history: Patient is seen today for: Severe Sepsis; Acute encephalopathy; Acute kidney injury; Hyperkalemia severe; Small bowel obstruction; Abdominal Pain; Rhabdomyolysis Seen and examined at bedside; 24hour events reviewed; nursing and respiratory care staff consulted; no adverse overnight events reported to me; resting peacefully in bed; remains on supplemental oxygen; denies acute chest pains or palpitations; No N/V/F/C; + abdominal discomfort Objective Vital Signs - 12hr 10/16/18 10/16/18 10/16/18 01:57 02:03 02:33 Temperature 100.1 F H Pulse Rate 114 H Pulse Rate [ Anterior Bilateral Throughout] Respiratory 18 20 18 Rate Respiratory Rate [Anterior Bilateral Throughout] Blood Pressure 141/66 O2 Sat by Pulse 94 Oximetry 10/16/18 10/16/18 10/16/18 07:02 08:00 09:30 Temperature 100.7 F H Pulse Rate 113 H Pulse Rate [ 112 H Anterior Bilateral Throughout] Respiratory 18 Rate Respiratory 18 Rate [Anterior Bilateral Throughout] Blood Pressure 148/61 O2 Sat by Pulse 87 94 Oximetry 10/16/18 10/16/18 09:41 10:00 Temperature Pulse Rate 113 H Pulse Rate [ Anterior Bilateral Throughout] Respiratory Rate Respiratory Rate [Anterior Bilateral Throughout] Blood Pressure O2 Sat by Pulse 94 Oximetry Constitutional: alert, appears uncomfortable, other (elderly looking CF, normocephalic and atraumatic with mildly increased respiratory effort at rest) Eyes: non-icteric ENT: oropharynx moist, other (mallampati 3) Neck: supple, no lymphadenopathy, no JVD Effort: mildly labored Ascultation: Bilateral: diminished breath sounds, rhonchi (scant) Percussion: Bilateral: not dull Cardiovascular: regular rate and rhythm Gastrointestinal: normoactive bowel sounds, soft, tender (mildly all quadrants), non-distended, other (di) Integumentary: normal Extremities: no cyanosis, no edema, pink and warm, pulses normal Neurologic: normal mental status, non-focal exam (grossly), pupils equal and round, CN II-XII normal, motor strength normal and Psychiatric: mood appropriate, affect normal CBC and BMP: 10/17/18 04:34 10/17/18 04:34 Abnormal lab findings: Abnormal Labs 10/13/18 10/13/18 10/13/18 08:32 08:36 09:17 WBC 31.8 H RBC Hgb Hct 44.2 H MCV 102 H MCH 33 H MCHC Plt Count Lymph % (Auto) Lymph # Seg Neutrophils % Seg Neuts % (Manual) 83.0 H Lymphocytes % (Manual) 3.0 L Monocytes % (Manual) 10.0 H Nucleated RBC % Seg Neutrophils # Seg Neutrophils # Man 26.4 H Lymphocytes # (Manual) 1.0 L Monocytes # (Manual) 3.2 H Sodium Potassium Chloride Carbon Dioxide BUN Creatinine Glucose POC Glucose 281 H Lactic Acid Calcium AST Alkaline Phosphatase Ammonia Total Creatine Kinase Total Protein Albumin Urine WBC (Auto) > 182.0 H Urine Creatinine Hepatitis C Antibody 10/13/18 10/13/18 10/13/18 09:17 09:17 11:09 WBC RBC Hgb Hct MCV MCH MCHC Plt Count Lymph % (Auto) Lymph # Seg Neutrophils % Seg Neuts % (Manual) Lymphocytes % (Manual) Monocytes % (Manual) Nucleated RBC % Seg Neutrophils # Seg Neutrophils # Man Lymphocytes # (Manual) Monocytes # (Manual) Sodium Potassium 8.7 H* Chloride Carbon Dioxide 8 L* BUN 31 H Creatinine 3.2 H Glucose 264 H POC Glucose Lactic Acid 4.90 H* Calcium AST 67 H Alkaline Phosphatase 268 H Ammonia 72.0 H Total Creatine Kinase Total Protein Albumin 3.2 L Urine WBC (Auto) Urine Creatinine Hepatitis C Antibody 10/13/18 10/13/18 10/13/18 11:09 11:47 12:20 WBC RBC Hgb Hct MCV MCH MCHC Plt Count Lymph % (Auto) Lymph # Seg Neutrophils % Seg Neuts % (Manual) Lymphocytes % (Manual) Monocytes % (Manual) Nucleated RBC % Seg Neutrophils # Seg Neutrophils # Man Lymphocytes # (Manual) Monocytes # (Manual) Sodium Potassium 8.1 H* Chloride 111.0 H Carbon Dioxide 12 L BUN 31 H Creatinine 2.9 H Glucose 225 H POC Glucose 225 H Lactic Acid 5.20 H* Calcium AST 73 H Alkaline Phosphatase 268 H Ammonia Total Creatine Kinase Total Protein 6.0 L Albumin 3.0 L Urine WBC (Auto) Urine Creatinine Hepatitis C Antibody 10/13/18 10/13/18 10/13/18 12:30 12:30 18:08 WBC RBC Hgb Hct MCV MCH MCHC Plt Count Lymph % (Auto) Lymph # Seg Neutrophils % Seg Neuts % (Manual) Lymphocytes % (Manual) Monocytes % (Manual) Nucleated RBC % Seg Neutrophils # Seg Neutrophils # Man Lymphocytes # (Manual) Monocytes # (Manual) Sodium Potassium 8.1 H* Chloride 107.8 H Carbon Dioxide 11 L BUN 32 H Creatinine 2.9 H Glucose 329 H POC Glucose Lactic Acid Calcium AST Alkaline Phosphatase Ammonia Total Creatine Kinase 5299 H Total Protein Albumin Urine WBC (Auto) Urine Creatinine Hepatitis C Antibody Reactive A 10/14/18 10/14/18 10/14/18 04:36 04:36 05:35 WBC 16.5 H RBC 3.51 L Hgb Hct MCV 98 H MCH 34 H MCHC 35 H Plt Count Lymph % (Auto) 6.4 L Lymph # 1.1 L Seg Neutrophils % 88.4 H Seg Neuts % (Manual) Lymphocytes % (Manual) Monocytes % (Manual) Nucleated RBC % Seg Neutrophils # 14.6 H Seg Neutrophils # Man Lymphocytes # (Manual) Monocytes # (Manual) Sodium Potassium 5.1 H D Chloride Carbon Dioxide BUN 19 H Creatinine 1.5 H Glucose 155 H POC Glucose 142 H Lactic Acid Calcium 7.6 L AST Alkaline Phosphatase Ammonia Total Creatine Kinase Total Protein Albumin Urine WBC (Auto) Urine Creatinine Hepatitis C Antibody 10/14/18 10/14/18 10/14/18 11:23 11:23 11:42 WBC RBC Hgb Hct MCV MCH MCHC Plt Count Lymph % (Auto) Lymph # Seg Neutrophils % Seg Neuts % (Manual) Lymphocytes % (Manual) Monocytes % (Manual) Nucleated RBC % Seg Neutrophils # Seg Neutrophils # Man Lymphocytes # (Manual) Monocytes # (Manual) Sodium Potassium Chloride Carbon Dioxide BUN Creatinine Glucose POC Glucose 154 H Lactic Acid 3.30 H* Calcium AST Alkaline Phosphatase Ammonia Total Creatine Kinase 1935 H Total Protein Albumin Urine WBC (Auto) Urine Creatinine Hepatitis C Antibody 10/14/18 10/14/18 10/15/18 17:39 23:18 04:12 WBC RBC 3.22 L Hgb Hct MCV 99 H MCH 34 H MCHC Plt Count Lymph % (Auto) Lymph # Seg Neutrophils % Seg Neuts % (Manual) 83.0 H Lymphocytes % (Manual) 10.0 L Monocytes % (Manual) Nucleated RBC % Seg Neutrophils # Seg Neutrophils # Man Lymphocytes # (Manual) 0.9 L Monocytes # (Manual) Sodium Potassium Chloride Carbon Dioxide BUN Creatinine Glucose POC Glucose 171 H 176 H Lactic Acid Calcium AST Alkaline Phosphatase Ammonia Total Creatine Kinase Total Protein Albumin Urine WBC (Auto) Urine Creatinine Hepatitis C Antibody 10/15/18 10/15/18 10/15/18 04:12 05:29 12:16 WBC RBC Hgb Hct MCV MCH MCHC Plt Count Lymph % (Auto) Lymph # Seg Neutrophils % Seg Neuts % (Manual) Lymphocytes % (Manual) Monocytes % (Manual) Nucleated RBC % Seg Neutrophils # Seg Neutrophils # Man Lymphocytes # (Manual) Monocytes # (Manual) Sodium 147 H Potassium Chloride 107.9 H Carbon Dioxide BUN 31 H Creatinine 1.8 H Glucose 162 H POC Glucose 164 H 152 H Lactic Acid Calcium 7.6 L AST Alkaline Phosphatase Ammonia Total Creatine Kinase Total Protein Albumin Urine WBC (Auto) Urine Creatinine Hepatitis C Antibody 10/15/18 10/15/18 10/15/18 12:22 12:27 12:27 WBC RBC Hgb Hct MCV MCH MCHC Plt Count Lymph % (Auto) Lymph # Seg Neutrophils % Seg Neuts % (Manual) Lymphocytes % (Manual) Monocytes % (Manual) Nucleated RBC % Seg Neutrophils # Seg Neutrophils # Man Lymphocytes # (Manual) Monocytes # (Manual) Sodium Potassium Chloride Carbon Dioxide BUN Creatinine Glucose POC Glucose Lactic Acid Calcium AST Alkaline Phosphatase Ammonia Total Creatine Kinase 1061 H Total Protein Albumin Urine WBC (Auto) 9.0 H Urine Creatinine 103.2 H Hepatitis C Antibody 10/15/18 10/16/18 10/16/18 21:44 05:26 05:26 WBC RBC 2.80 L Hgb 9.5 L Hct 28.1 L MCV 100 H MCH 34 H MCHC Plt Count 138 L Lymph % (Auto) Lymph # Seg Neutrophils % Seg Neuts % (Manual) 90.0 H Lymphocytes % (Manual) 6.0 L Monocytes % (Manual) Nucleated RBC % 1.0 H Seg Neutrophils # Seg Neutrophils # Man Lymphocytes # (Manual) 0.5 L Monocytes # (Manual) Sodium Potassium Chloride Carbon Dioxide BUN 32 H Creatinine 1.5 H Glucose 139 H POC Glucose 182 H Lactic Acid Calcium 7.7 L AST Alkaline Phosphatase Ammonia Total Creatine Kinase Total Protein Albumin Urine WBC (Auto) Urine Creatinine Hepatitis C Antibody 10/16/18 10/16/18 07:09 11:21 WBC RBC Hgb Hct MCV MCH MCHC Plt Count Lymph % (Auto) Lymph # Seg Neutrophils % Seg Neuts % (Manual) Lymphocytes % (Manual) Monocytes % (Manual) Nucleated RBC % Seg Neutrophils # Seg Neutrophils # Man Lymphocytes # (Manual) Monocytes # (Manual) Sodium Potassium Chloride Carbon Dioxide BUN Creatinine Glucose POC Glucose 135 H 147 H Lactic Acid Calcium AST Alkaline Phosphatase Ammonia Total Creatine Kinase Total Protein Albumin Urine WBC (Auto) Urine Creatinine Hepatitis C Antibody Allied health notes reviewed: nursing
--- NOTE | 2018-10-16 13:33 | Consultation ---
History of Present Illness - Reason for Consult Consult date: 10/16/18 Reason for consult: Mental Health Evaluation Requesting physician: FRAN NICOLE - Chief Complaint Chief complaint: "My stomach is hurting" - History of Present Psychiatric Illness 67-year-old female presented to the Er for AMS. Today the patient was calm and cooperative during the assessment. She was asked about why she was brought to the hospital, she stated, "I was sick." She was able to recall 2/3 numbers in 5 mins and state the current/past [place] Presidents. She stated that she felt "sick to her stomach last night" because of diarrhea. She denies a mental health dx when asked. She stated that she live alone at this time when asked about her residence. She denies Si/HI's and AVH's. She stated that she didn't sleep well because of the diarrhea. She denies recreational drug use and alcohol consumption (etoh). Medications and Allergies Allergies Allergy/AdvReac Type Severity Reaction Status Date / Time Sulfa (Sulfonamide Allergy Rash Verified 05/09/18 17:10 Antibiotics) Home Medications Medication Instructions Recorded Confirmed Last Taken Type amLODIPine [Norvasc] 10 mg PO DAILY 02/21/18 10/13/18 10/12/18 History Lisinopril [Zestril] 10 mg PO DAILY 05/10/18 10/13/18 10/12/18 History Pantoprazole [Protonix TAB] 40 mg PO BID #60 tablet 05/14/18 10/13/18 10/12/18 Rx traMADol [Ultram 50 MG tab] 50 mg PO Q8H PRN #20 tablet 05/24/18 10/13/18 10/12/18 Rx Amitriptyline [Elavil] 25 mg PO QHS 10/13/18 10/13/18 10/12/18 History Bimatoprost [Lumigan 0.01%] 1 drop OP QPM 10/13/18 10/13/18 10/12/18 History Clopidogrel [Plavix] 75 mg PO QDAY 10/13/18 10/13/18 10/12/18 History Cyclobenzaprine [Flexeril 10 MG 10 mg PO BID 10/13/18 10/13/18 10/12/18 History TAB] Gabapentin [Neurontin] 600 mg PO Q8H 10/13/18 10/13/18 10/12/18 History metFORMIN [Glucophage] 500 mg PO QDAY 10/13/18 10/13/18 10/12/18 History Active Meds: Active Medications Acetaminophen (Tylenol) 650 mg PO Q4H PRN PRN Reason: Pain MILD(1-3)/Fever >100.5/[place] Last Admin: 10/15/18 22:19 Dose: 650 mg Documented by: Albuterol (Proventil) 2.5 mg IH Q4HRT PRN PRN Reason: Shortness Of Breath Albuterol/Ipratropium (Duoneb *Not For Prn Use*) 1 ampul IH TIDRT [facility] Last Admin: 10/16/18 09:27 Dose: 1 ampul Documented by: Bisacodyl (Dulcolax) 10 mg NE QDAY [facility] Last Admin: 10/16/18 10:12 Dose: 10 mg Documented by: Docusate Sodium (Colace) 100 mg PO BID [facility] Last Admin: 10/16/18 10:13 Dose: 100 mg Documented by: Hydromorphone HCl (Dilaudid) 0.5 mg IV Q3H PRN PRN Reason: Pain , Severe (7-10) Last Admin: 10/16/18 02:03 Dose: 0.5 mg Documented by: Sodium Chloride (Nacl 0.9%) 100 mls @ 999 mls/hr IV STEVE PRN PRN Reason: Hypotension Cefepime HCl (Maxipime/Ns 1 Gm/100 Ml) 1 gm in 100 mls @ 200 mls/hr IV Q24HR [facility]; Protocol Last Admin: 10/16/18 10:07 Dose: 200 mls/hr Documented by: Sodium Chloride (Nacl 0.9% 1000 Ml) 1,000 mls @ 75 mls/hr IV DIRECT [facility] Last Admin: 10/15/18 22:21 Dose: 75 mls/hr Documented by: Insulin Human Lispro (Humalog) 0 unit SUB-Q ACHS [facility]; Protocol Last Admin: 10/16/18 12:56 Dose: Not Given Documented by: Metoclopramide HCl (Reglan) 10 mg IV Q6H PRN PRN Reason: Nausea And Vomiting Nicotine (Habitrol) 14 mg TD QDAY [facility] Last Admin: 10/16/18 10:13 Dose: 14 mg Documented by: Ondansetron HCl (Zofran) 4 mg IV Q3H PRN PRN Reason: Nausea And Vomiting Last Admin: 10/15/18 03:58 Dose: 4 mg Documented by: Pantoprazole Sodium (Protonix) 40 mg PO BID [facility] Polyethylene Glycol (Miralax 3350) 17 gm PO QDAY [facility] Last Admin: 10/16/18 10:13 Dose: 17 gm Documented by: Sodium Chloride (Sodium Chloride Flush Syringe 10 Ml) 10 ml IV BID [facility] Last Admin: 10/16/18 08:00 Dose: 10 ml Documented by: Sodium Chloride (Sodium Chloride Flush Syringe 10 Ml) 10 ml IV PRN PRN PRN Reason: LINE FLUSH Sucralfate (Carafate) 1 gm PO ACHS [facility] Last Admin: 10/16/18 12:55 Dose: 1 gm Documented by: Past psychiatric history - Past Medical History Past Medical History: COPD, GERD, other (Renal Insuffuciency) Past Surgical History: Other (Breast Surgery (Cyst)) - past Psychiatric treatment and history psychiatric treatment history: Denies a psy hx. Denies a psy hx. - Social History Social history: Lives alone Mental Status Exam - Vital signs Last Vital Signs Temp 100.7 F H 10/16/18 07:02 Pulse 113 H 10/16/18 10:00 Resp 18 10/16/18 09:30 BP 148/61 10/16/18 07:02 Pulse Ox 94 10/16/18 09:41 - Exam Narrative exam: MSE: Appearance: calm, cooperative Behavior: regular eye contact Speech: regular rate and tone Mood: "okay" Affect: congruent to mood Thought Process: circumstantial Thought Content: denies SI/HI's and AVH's Motor Activity: sitting up in bed Cognition: A/O x3 Insight: fair Judgment: fair Results Result Diagrams: 10/16/18 05:26 10/16/18 05:26 Abnormal lab results 10/15/18 10/15/18 10/15/18 Range/Units 12:22 12:27 12:27 RBC (3.65-5.03) M/mm3 Hgb (10.1-14.3) gm/dl Hct (30.3-42.9) % MCV (79-97) fl MCH (28-32) pg Plt Count (140-440) K/mm3 Seg Neuts % (Manual) (40.0-70.0) % Lymphocytes % (Manual) (13.4-35.0) % Nucleated RBC % (0.0-0.9) % Lymphocytes # (Manual) (1.2-5.4) K/mm3 BUN (7-17) mg/dL Creatinine (0.7-1.2) mg/dL Glucose (65-100) mg/dL POC Glucose (70-105) Calcium (8.4-10.2) mg/dL Total Creatine Kinase 1061 H (30-135) units/L Urine WBC (Auto) 9.0 H (0.0-6.0) /HPF Urine Creatinine 103.2 H (0.1-20.0) mg/dL 10/15/18 10/16/18 10/16/18 Range/Units 21:44 05:26 05:26 RBC 2.80 L (3.65-5.03) M/mm3 Hgb 9.5 L (10.1-14.3) gm/dl Hct 28.1 L (30.3-42.9) % MCV 100 H (79-97) fl MCH 34 H (28-32) pg Plt Count 138 L (140-440) K/mm3 Seg Neuts % (Manual) 90.0 H (40.0-70.0) % Lymphocytes % (Manual) 6.0 L (13.4-35.0) % Nucleated RBC % 1.0 H (0.0-0.9) % Lymphocytes # (Manual) 0.5 L (1.2-5.4) K/mm3 BUN 32 H (7-17) mg/dL Creatinine 1.5 H (0.7-1.2) mg/dL Glucose 139 H (65-100) mg/dL POC Glucose 182 H (70-105) Calcium 7.7 L (8.4-10.2) mg/dL Total Creatine Kinase (30-135) units/L Urine WBC (Auto) (0.0-6.0) /HPF Urine Creatinine (0.1-20.0) mg/dL 10/16/18 10/16/18 Range/Units 07:09 11:21 RBC (3.65-5.03) M/mm3 Hgb (10.1-14.3) gm/dl Hct (30.3-42.9) % MCV (79-97) fl MCH (28-32) pg Plt Count (140-440) K/mm3 Seg Neuts % (Manual) (40.0-70.0) % Lymphocytes % (Manual) (13.4-35.0) % Nucleated RBC % (0.0-0.9) % Lymphocytes # (Manual) (1.2-5.4) K/mm3 BUN (7-17) mg/dL Creatinine (0.7-1.2) mg/dL Glucose (65-100) mg/dL POC Glucose 135 H 147 H (70-105) Calcium (8.4-10.2) mg/dL Total Creatine Kinase (30-135) units/L Urine WBC (Auto) (0.0-6.0) /HPF Urine Creatinine (0.1-20.0) mg/dL All other labs normal. Assessment and Plan Assessment and plan: Impression: Today the patient was calm and cooperative during the assessment. The patient's mental has improved. Recommendation/Plan: Will follow up with the patient in [address] Thom Baker.
--- NOTE | 2018-10-16 21:27 | Progress Note ---
Assessment and Plan Assessment and plan: 67 year old woman who presented to the hospital complaining of altered mental status, abdominal pain and low blood pressure was [facility] in the ER. She was confused upon arrival what is oriented to person and place but not the time. Past medical history includes CVA diabetes hypertension COPD and chronic kidney disease Cxr No significant abnormalities Axr Neg CT abdomen and pelvis shows a few mildly dilated loops of proximal small bowel and Trace ascites CT head shows no acute abnormality Renal ultrasound shows no acute sonographic animality of the kidneys Repeat chest x-ray and abdominal x-ray shows only mild fecal retention Sepsis; cont sepsis protocol Acute on chronic kidney disease , improved with IV fluids, nephrology seeing patient UTI , continue antibiotics, urine culture growing E coli sens to Keflex, cont keflex to complete 7 days acute hyperkalemia, has been medically treated, received HD, now improved, will need vas cath removal prior to dc partial bowel obstruction , ADAT per GS, doing well, resolving acute toxic metabolic encephalopathy; improving Rhabdomyolysis, continue IV fluids Hepatitis C antibody positive, previously positive in 2014, fup viral load Hallucations now resolved, Mental health consult appreciated, geripsych consult pending dvt ppx; lovenox Dispo; to [facility] for optimization vs placement, she was home alone and was found very ill, likely unsafe to be at home by herself History Interval history: no fevers less confused, calm and cooperative, no longer talking to herself altered no vomiting, no diarrhea Hospitalist Physical - Physical exam Narrative exam: General appearance: Present: no acute distress, other (confused) - EENT Eyes: Present: PERRL - Neck Neck: Present: supple - Respiratory Respiratory: bilateral: CTA - Cardiovascular Rhythm: regular Heart Sounds: Present: S1 & S2 - Extremities Extremities: no ischemia - Abdominal General gastrointestinal: soft, non-tender - Integumentary Integumentary: Present: clear, warm, dry - Psychiatric Psychiatric: calm and cooperative, no intact judgment & insight - Neurologic Neurologic: CNII-XII intact, no focal deficits - Constitutional Vitals: Temp Pulse Resp BP Pulse Ox 100.8 F H 105 H 18 145/74 94 10/16/18 19:59 10/16/18 20:24 10/16/18 20:24 10/16/18 19:59 10/16/18 19:59 General appearance: Present: other (confused) Results - Labs CBC & Chem 7: 10/16/18 05:26 10/16/18 05:26 Labs: Laboratory Last Values WBC 8.0 K/mm3 (4.5-11.0) 10/16/18 05:26 RBC 2.80 M/mm3 (3.65-5.03) L 10/16/18 05:26 Hgb 9.5 gm/dl (10.1-14.3) L 10/16/18 05:26 Hct 28.1 % (30.3-42.9) L 10/16/18 05:26 MCV 100 fl (79-97) H 10/16/18 05:26 MCH 34 pg (28-32) H 10/16/18 05:26 MCHC 34 % (30-34) 10/16/18 05:26 RDW 14.3 % (13.2-15.2) 10/16/18 05:26 Plt Count 138 K/mm3 (140-440) L 10/16/18 05:26 Lymph % (Auto) 6.4 % (13.4-35.0) L 10/14/18 04:36 Morrison % (Auto) 4.4 % (0.0-7.3) 10/14/18 04:36 Eos % (Auto) 0.4 % (0.0-4.3) 10/14/18 04:36 Baso % (Auto) 0.4 % (0.0-1.8) 10/14/18 04:36 Lymph # 1.1 K/mm3 (1.2-5.4) L 10/14/18 04:36 Morrison # 0.7 K/mm3 (0.0-0.8) 10/14/18 04:36 Eos # 0.1 K/mm3 (0.0-0.4) 10/14/18 04:36 Baso # 0.1 K/mm3 (0.0-0.1) 10/14/18 04:36 Add Manual Diff Complete 10/16/18 05:26 Total Counted 100 10/16/18 05:26 Seg Neutrophils % 88.4 % (40.0-70.0) H 10/14/18 04:36 Seg Neuts % (Manual) 90.0 % (40.0-70.0) H 10/16/18 05:26 2.0 % 10/16/18 05:26 6.0 % (13.4-35.0) L 10/16/18 05:26 Reactive Lymphs % (Man) 0 % 10/16/18 05:26 1.0 % (0.0-7.3) 10/16/18 05:26 0 % (0.0-4.3) 10/16/18 05:26 0 % (0.0-1.8) 10/16/18 05:26 1.0 % 10/16/18 05:26 0 % 10/16/18 05:26 0 % 10/16/18 05:26 0 % 10/16/18 05:26 Nucleated RBC % 1.0 % (0.0-0.9) H 10/16/18 05:26 Seg Neutrophils # 14.6 K/mm3 (1.8-7.7) H 10/14/18 04:36 Seg Neutrophils # Man 7.2 K/mm3 (1.8-7.7) 10/16/18 05:26 Band Neutrophils # 0.2 K/mm3 10/16/18 05:26 0.5 K/mm3 (1.2-5.4) L 10/16/18 05:26 Abs React Lymphs (Man) 0.0 K/mm3 10/16/18 05:26 0.1 K/mm3 (0.0-0.8) 10/16/18 05:26 0.0 K/mm3 (0.0-0.4) 10/16/18 05:26 0.0 K/mm3 (0.0-0.1) 10/16/18 05:26 0.1 K/mm3 10/16/18 05:26 0.0 K/mm3 10/16/18 05:26 0.0 K/mm3 10/16/18 05:26 Blast Cells # 0.0 K/mm3 10/16/18 05:26 WBC Morphology Not Reportable 10/16/18 05:26 Hypersegmented Neuts Not Reportable 10/16/18 05:26 Hyposegmented Neuts Not Reportable 10/16/18 05:26 Hypogranular Neuts Not Reportable 10/16/18 05:26 Not Reportable 10/16/18 05:26 Not Reportable 10/16/18 05:26 Not Reportable 10/16/18 05:26 Not Reportable 10/16/18 05:26 Not Reportable 10/16/18 05:26 Not Reportable 10/16/18 05:26 Consistent w auto 10/16/18 05:26 Not Reportable 10/16/18 05:26 Plt Clumps, EDTA Not Reportable 10/16/18 05:26 Not Reportable 10/16/18 05:26 Not Reportable 10/16/18 05:26 Not Reportable 10/16/18 05:26 Plt Morphology Comment Not Reportable 10/16/18 05:26 RBC Morphology Not Reportable 10/16/18 05:26 Dimorphic RBCs Not Reportable 10/16/18 05:26 Not Reportable 10/16/18 05:26 Not Reportable 10/16/18 05:26 Not Reportable 10/16/18 05:26 Few 10/16/18 05:26 Not Reportable 10/16/18 05:26 Not Reportable 10/16/18 05:26 Not Reportable 10/16/18 05:26 Not Reportable 10/16/18 05:26 Not Reportable 10/16/18 05:26 Not Reportable 10/16/18 05:26 Not Reportable 10/16/18 05:26 Not Reportable 10/16/18 05:26 Not Reportable 10/16/18 05:26 Not Reportable 10/16/18 05:26 Not Reportable 10/16/18 05:26 Not Reportable 10/16/18 05:26 Not Reportable 10/16/18 05:26 Not Reportable 10/16/18 05:26 Not Reportable 10/16/18 05:26 Acanthocytes (Spur) Not Reportable 10/16/18 05:26 Rouleaux Not Reportable 10/16/18 05:26 Not Reportable 10/16/18 05:26 Not Reportable 10/16/18 05:26 Not Reportable 10/16/18 05:26 Not Reportable 10/16/18 05:26 Hem Pathologist Commnt No 10/16/18 05:26 APTT 30.9 Sec. (24.2-36.6) 10/13/18 09:17 Sodium 141 mmol/L (137-145) 10/16/18 05:26 Potassium 3.6 mmol/L (3.6-5.0) 10/16/18 05:26 Chloride 106.9 mmol/L (98-107) 10/16/18 05:26 Carbon Dioxide 23 mmol/L (22-30) 10/16/18 05:26 15 mmol/L 10/16/18 05:26 BUN 32 mg/dL (7-17) H 10/16/18 05:26 1.5 mg/dL (0.7-1.2) H 10/16/18 05:26 Estimated GFR 35 ml/min 10/16/18 05:26 21 % 10/16/18 05:26 Glucose 139 mg/dL (65-100) H 10/16/18 05:26 POC Glucose 169 (70-105) H 10/16/18 16:46 5.5 % (4-6) 10/13/18 09:17 Lactic Acid 3.30 mmol/L (0.7-2.0) H* 10/14/18 11:23 Calcium 7.7 mg/dL (8.4-10.2) L 10/16/18 05:26 Phosphorus 3.70 mg/dL (2.5-4.5) 10/16/18 05:26 0.20 mg/dL (0.1-1.2) 10/13/18 11:09 AST 73 units/L (5-40) H 10/13/18 11:09 ALT 18 units/L (7-56) 10/13/18 11:09 268 units/L (35-129) H 10/13/18 11:09 72.0 umol/L (25-60) H 10/13/18 09:17 1061 units/L (30-135) H 10/15/18 12:22 0.029 ng/mL (0.00-0.029) 10/13/18 09:17 6.0 g/dL (6.3-8.2) L 10/13/18 11:09 3.0 g/dL (3.9-5) L 10/13/18 11:09 1.0 % 10/13/18 11:09 17 units/L (13-60) 10/13/18 09:17 TSH 2.920 mlU/mL (0.270-4.200) 10/13/18 09:17 Lakia (Yellow) 10/15/18 12:27 Slightly-cloudy (Clear) 10/15/18 12:27 6.0 (5.0-7.0) 10/15/18 12:27 Ur Specific [place] 1.020 (1.003-1.030) 10/15/18 12:27 100 mg/dl mg/dL (Negative) 10/15/18 12:27 Neg mg/dL (Negative) 10/15/18 12:27 Tr mg/dL (Negative) 10/15/18 12:27 Mod (Negative) 10/15/18 12:27 Neg (Negative) 10/15/18 12:27 Neg (Negative) 10/15/18 12:27 < 2.0 mg/dL (<2.0) 10/15/18 12:27 Ur Leukocyte Esterase Neg (Negative) 10/15/18 12:27 9.0 /HPF (0.0-6.0) H 10/15/18 12:27 2.0 /HPF (0.0-6.0) 10/15/18 12:27 U Epithel Cells (Auto) 3.0 /HPF (0-13.0) 10/15/18 12:27 2+ /HPF (Negative) 10/13/18 08:32 3+ /HPF 10/13/18 08:32 Few /HPF 10/15/18 12:27 None seen (None Seen) 10/15/18 12:27 103.2 mg/dL (0.1-20.0) H 10/15/18 12:27 Hepatitis A IgM Ab Non-reactive (NonReactive) 10/13/18 18:08 Hep Bs Antigen Non-reactive (Negative) 10/13/18 18:08 Hep B Core IgM Ab Non-reactive (NonReactive) 10/13/18 18:08 Reactive (NonReactive) A 10/13/18 18:08 Active Medications - Current Medications Current Medications: Generic Name Dose Route Start Last Admin Trade Name Freq PRN Reason Stop Dose Admin Acetaminophen 650 mg 10/13/18 19:41 10/15/18 22:19 Tylenol PO 650 mg Q4H PRN Administration Pain MILD(1-3)/Fever >100.5/BURTON Albuterol 2.5 mg 10/14/18 10:38 Proventil IH Q4HRT PRN Shortness Of Breath Albuterol/Ipratropium 1 ampul 10/14/18 14:00 10/16/18 20:24 Duoneb *Not For Prn Use* IH 1 ampul TIDRT LUDA Administration Bisacodyl 10 mg 10/14/18 16:00 10/16/18 10:12 Dulcolax SC 10 mg QDAY LUDA Administration Docusate Sodium 100 mg 10/15/18 22:00 10/16/18 10:13 Colace PO 100 mg BID LUDA Administration Hydromorphone HCl 0.5 mg 10/14/18 12:23 10/16/18 02:03 Dilaudid IV 0.5 mg Q3H PRN Administration Pain , Severe (7-10) Sodium Chloride 100 mls @ 999 mls/hr 10/13/18 16:23 Nacl 0.9% IV STEVE PRN Hypotension Cefepime HCl 1 gm in 100 mls @ 200 mls/hr 10/15/18 10:00 10/16/18 16:01 Maxipime/Ns 1 Gm/100 Ml IV Infused Q24HR LUDA Infusion Protocol Sodium Chloride 1,000 mls @ 75 mls/hr 10/15/18 16:00 10/15/18 22:21 Nacl 0.9% 1000 Ml IV 75 mls/hr DIRECT LUDA Administration Insulin Human Lispro 0 unit 10/15/18 16:30 10/16/18 17:52 Humalog SUB-Q 3 unit ACHS LUDA Administration Protocol Metoclopramide HCl 10 mg 10/13/18 19:41 Reglan IV Q6H PRN Nausea And Vomiting Nicotine 14 mg 10/14/18 10:00 10/16/18 10:13 Habitrol TD 14 mg QDAY LUDA Administration Ondansetron HCl 4 mg 10/13/18 19:41 10/15/18 03:58 Zofran IV 4 mg Q3H PRN Administration Nausea And Vomiting Pantoprazole Sodium 40 mg 10/16/18 22:00 Protonix PO BID LUDA Polyethylene Glycol 17 gm 10/15/18 13:00 10/16/18 10:13 Miralax 3350 PO 17 gm QDAY LUDA Administration Sodium Chloride 10 ml 10/13/18 22:00 10/16/18 08:00 Sodium Chloride Flush Syringe 10 Ml IV 10 ml BID LUDA Administration Sodium Chloride 10 ml 10/13/18 19:41 Sodium Chloride Flush Syringe 10 Ml IV PRN PRN LINE FLUSH Sucralfate 1 gm 10/15/18 16:30 10/16/18 17:54 Carafate PO 1 gm ACHS LUDA Administration Nutrition/Malnutrition Assess - Dietary Evaluation Nutrition/Malnutrition Findings: Nutrition Notes Start: 10/14/18 11:37 Freq: Status: Active Protocol: Document 10/16/18 16:28 RM (Rec: 10/16/18 16:35 RM [id number]) Nutrition Notes Initial or Follow up Reassessment Current Diagnosis CKD(stage I-IV),COPD,Diabetes, Sepsis,Hypertension,Stroke Other Pertinent Diagnosis UTI, Acute Encephalopathy, Hep C, Partial SBO Current Diet GI soft Labs/Tests Reviewed Pertinent Medications Zofran Height 5 ft 2 in Weight 61.9 kg [place] Body Weight (kg) 50.00 BMI 25.0 Subjective/Other Information Pt moved from ICU to [facility]. Pt stated that her appetite is poor d/t her being uncomfortable and abdominal pain. Stated that she has not eaten her first meal yet. Declined ONS for now d/t wanting to try to eat. Percent of energy/protein needs met: 0%/0% Burn Absent Trauma Absent #1 Nutrition Diagnosis Inadequate oral intake Diagnosis Progress(for reassessment Continues documentation) Is patient on ventilator? No Is Patient Ambulatory and/or Out of Bed Yes REE-([place]-ambulatory/OOB) [ [id number] [id number]] Calculation Used for Recommendations [facility] Additional Notes Protein needs: 50-62g(0.8-1g/ kg) Fluid needs: 1ml/kcal Nutrition Intervention Change Diet Order: Continue current Goal #1 Meet at least 75% of calorie and protein needs via PO intakes Anticipated Discharge Needs: Unable to determine at this time Follow-Up By: 10/20/18 Additional Comments Follow for PO intakes
[2018-10-16] MEDS: PROTONIX PO SCH (22:02)
[2018-10-16] MEDS: TYLENOL PO PRN (22:03)
[2018-10-16] MEDS: NACL 0.9% 1000 ML 1,000 ML IV SCH (22:10)
[2018-10-16] MEDS: KEFLEX PO SCH (22:16)
[2018-10-17 04:51] LABS: Hematocrit 29.1 % (30.3-42.9); Hemoglobin 9.8 gm/dl (10.1-14.3); Mean Corpuscular HGB Conc 34 % (30-34); Mean Corpuscular Volume 100 fl (79-97); Platelet Count 149 K/mm3 (140-440); Red Blood Count 2.91 M/mm3 (3.65-5.03); Red Cell Distribution Width 14.4 % (13.2-15.2)
[2018-10-17 05:00] LABS: Calcium 7.3 mg/dL (8.4-10.2)
[2018-10-17 06:36] LABS: Band Neutrophils # (Manual) 0.2 K/mm3; Basophils % (Manual) 0 % (0.0-1.8); Eosinophils % (Manual) 0 % (0.0-4.3); Total Cells Counted 100
[2018-10-17 06:38] LABS: Anisocytosis Few; Platelet Estimate Consistent w Auto; Poikilocytosis Rare
[2018-10-17] MEDS: DUONEB *Not for PRN Use IH SCH ×3 (09:28→20:13)
[2018-10-17] MEDS: CARAFATE PO SCH ×4 (09:44→21:44)
[2018-10-17] MEDS: HABITROL TD SCH (09:45)
[2018-10-17] MEDS: PROTONIX PO SCH ×2 (09:45→21:45)
[2018-10-17] MEDS: DULCOLAX PR SCH (09:45)
[2018-10-17] MEDS: HumaLOG SUB-Q SCH ×4 (09:45→22:23)
[2018-10-17] MEDS: KEFLEX PO SCH ×2 (09:45→21:44)
[2018-10-17] MEDS: SODIUM CHLORIDE FLUSH SYRINGE 10 ML IV SCH ×2 (09:46→23:22)
[2018-10-17] MEDS: MIRALAX 3350 PO SCH (10:08)
[2018-10-17] MEDS: COLACE PO SCH ×2 (10:33→21:44)
--- NOTE | 2018-10-17 11:12 | Progress Note ---
Assessment and Plan Severe Sepsis Acute encephalopathy Acute kidney injury secondary to ATN Hyperkalemia severe Small bowel obstruction Abdominal Pain Rhabdomyolysis - prn antiemetics - consider KUB - laxatives for bowel regimen - continue suppplemental oxygen to keep O2 sats >90% - continue BIPAP scheduled qhs (if tolerates) - supportive transfusions as needed to keep HgB >7g/dL - continue VTE prophylaxis ( SCDs) - continue PPI therapy - continue bronchodilators with pulmonary hygiene per RT - continue mobility protocol for pressure ulcer prophylaxis - PT/OT as tolerated - continue close monitoring of renal function and hemodynamics - continue accuchecks with glycemic control per SSI for target blood glucose 140-180mg/dL - continue other care per attending / other consultants .... re-evaluate in am & prn Subjective Date of service: 10/17/18 Principal diagnosis: Severe Sepsis; Ac encephalopathy; JENNIFER; Hyperkalemia; SBO; Rhabdomyolysis Interval history: Patient is seen today for: Severe Sepsis; Acute encephalopathy; Acute kidney injury; Hyperkalemia severe; Small bowel obstruction; Abdominal Pain; Rhabdomyolysis Seen and examined at bedside; 24hour events reviewed; nursing and respiratory care staff consulted; no adverse overnight events reported to me; resting peacefully in bed; remains on supplemental oxygen; Objective Vital Signs - 12hr 10/17/18 10/17/18 10/17/18 01:52 07:29 08:00 Temperature 99.6 F 99.0 F Pulse Rate 118 H 107 H Pulse Rate [ 118 H Anterior Bilateral Throughout] Respiratory 20 20 Rate Respiratory 20 Rate [Anterior Bilateral Throughout] Blood Pressure 141/86 164/66 O2 Sat by Pulse 90 93 Oximetry 10/17/18 10/17/18 09:31 10:00 Temperature Pulse Rate Pulse Rate [ Anterior Bilateral Throughout] Respiratory Rate Respiratory Rate [Anterior Bilateral Throughout] Blood Pressure O2 Sat by Pulse 92 95 Oximetry Constitutional: alert, appears uncomfortable, other (elderly looking CF, normocephalic and atraumatic with mildly increased respiratory effort at rest) Eyes: non-icteric ENT: oropharynx moist, other (mallampati 3) Neck: supple, no lymphadenopathy, no JVD Effort: mildly labored Ascultation: Bilateral: diminished breath sounds, rhonchi (scant) Percussion: Bilateral: not dull Cardiovascular: regular rate and rhythm Gastrointestinal: normoactive bowel sounds, soft, tender (mildly all quadrants), non-distended, other (di) Integumentary: normal Extremities: no cyanosis, no edema, pink and warm, pulses normal Neurologic: normal mental status, non-focal exam (grossly), pupils equal and round, CN II-XII normal, motor strength normal and Psychiatric: mood appropriate, affect normal CBC and BMP: 10/17/18 04:34 10/17/18 04:34 Abnormal lab findings: Abnormal Labs 10/13/18 10/13/18 10/13/18 08:32 08:36 09:17 WBC 31.8 H RBC Hgb Hct 44.2 H MCV 102 H MCH 33 H MCHC Plt Count Lymph % (Auto) Lymph # Seg Neutrophils % Seg Neuts % (Manual) 83.0 H Lymphocytes % (Manual) 3.0 L Monocytes % (Manual) 10.0 H Nucleated RBC % Seg Neutrophils # Seg Neutrophils # Man 26.4 H Lymphocytes # (Manual) 1.0 L Monocytes # (Manual) 3.2 H Sodium Potassium Chloride Carbon Dioxide BUN Creatinine Glucose POC Glucose 281 H Lactic Acid Calcium AST Alkaline Phosphatase Ammonia Total Creatine Kinase Total Protein Albumin Urine WBC (Auto) > 182.0 H Urine Creatinine Hepatitis C Antibody 10/13/18 10/13/18 10/13/18 09:17 09:17 11:09 WBC RBC Hgb Hct MCV MCH MCHC Plt Count Lymph % (Auto) Lymph # Seg Neutrophils % Seg Neuts % (Manual) Lymphocytes % (Manual) Monocytes % (Manual) Nucleated RBC % Seg Neutrophils # Seg Neutrophils # Man Lymphocytes # (Manual) Monocytes # (Manual) Sodium Potassium 8.7 H* Chloride Carbon Dioxide 8 L* BUN 31 H Creatinine 3.2 H Glucose 264 H POC Glucose Lactic Acid 4.90 H* Calcium AST 67 H Alkaline Phosphatase 268 H Ammonia 72.0 H Total Creatine Kinase Total Protein Albumin 3.2 L Urine WBC (Auto) Urine Creatinine Hepatitis C Antibody 10/13/18 10/13/18 10/13/18 11:09 11:47 12:20 WBC RBC Hgb Hct MCV MCH MCHC Plt Count Lymph % (Auto) Lymph # Seg Neutrophils % Seg Neuts % (Manual) Lymphocytes % (Manual) Monocytes % (Manual) Nucleated RBC % Seg Neutrophils # Seg Neutrophils # Man Lymphocytes # (Manual) Monocytes # (Manual) Sodium Potassium 8.1 H* Chloride 111.0 H Carbon Dioxide 12 L BUN 31 H Creatinine 2.9 H Glucose 225 H POC Glucose 225 H Lactic Acid 5.20 H* Calcium AST 73 H Alkaline Phosphatase 268 H Ammonia Total Creatine Kinase Total Protein 6.0 L Albumin 3.0 L Urine WBC (Auto) Urine Creatinine Hepatitis C Antibody 10/13/18 10/13/18 10/13/18 12:30 12:30 18:08 WBC RBC Hgb Hct MCV MCH MCHC Plt Count Lymph % (Auto) Lymph # Seg Neutrophils % Seg Neuts % (Manual) Lymphocytes % (Manual) Monocytes % (Manual) Nucleated RBC % Seg Neutrophils # Seg Neutrophils # Man Lymphocytes # (Manual) Monocytes # (Manual) Sodium Potassium 8.1 H* Chloride 107.8 H Carbon Dioxide 11 L BUN 32 H Creatinine 2.9 H Glucose 329 H POC Glucose Lactic Acid Calcium AST Alkaline Phosphatase Ammonia Total Creatine Kinase 5299 H Total Protein Albumin Urine WBC (Auto) Urine Creatinine Hepatitis C Antibody Reactive A 10/14/18 10/14/18 10/14/18 04:36 04:36 05:35 WBC 16.5 H RBC 3.51 L Hgb Hct MCV 98 H MCH 34 H MCHC 35 H Plt Count Lymph % (Auto) 6.4 L Lymph # 1.1 L Seg Neutrophils % 88.4 H Seg Neuts % (Manual) Lymphocytes % (Manual) Monocytes % (Manual) Nucleated RBC % Seg Neutrophils # 14.6 H Seg Neutrophils # Man Lymphocytes # (Manual) Monocytes # (Manual) Sodium Potassium 5.1 H D Chloride Carbon Dioxide BUN 19 H Creatinine 1.5 H Glucose 155 H POC Glucose 142 H Lactic Acid Calcium 7.6 L AST Alkaline Phosphatase Ammonia Total Creatine Kinase Total Protein Albumin Urine WBC (Auto) Urine Creatinine Hepatitis C Antibody 10/14/18 10/14/18 10/14/18 11:23 11:23 11:42 WBC RBC Hgb Hct MCV MCH MCHC Plt Count Lymph % (Auto) Lymph # Seg Neutrophils % Seg Neuts % (Manual) Lymphocytes % (Manual) Monocytes % (Manual) Nucleated RBC % Seg Neutrophils # Seg Neutrophils # Man Lymphocytes # (Manual) Monocytes # (Manual) Sodium Potassium Chloride Carbon Dioxide BUN Creatinine Glucose POC Glucose 154 H Lactic Acid 3.30 H* Calcium AST Alkaline Phosphatase Ammonia Total Creatine Kinase 1935 H Total Protein Albumin Urine WBC (Auto) Urine Creatinine Hepatitis C Antibody 10/14/18 10/14/18 10/15/18 17:39 23:18 04:12 WBC RBC 3.22 L Hgb Hct MCV 99 H MCH 34 H MCHC Plt Count Lymph % (Auto) Lymph # Seg Neutrophils % Seg Neuts % (Manual) 83.0 H Lymphocytes % (Manual) 10.0 L Monocytes % (Manual) Nucleated RBC % Seg Neutrophils # Seg Neutrophils # Man Lymphocytes # (Manual) 0.9 L Monocytes # (Manual) Sodium Potassium Chloride Carbon Dioxide BUN Creatinine Glucose POC Glucose 171 H 176 H Lactic Acid Calcium AST Alkaline Phosphatase Ammonia Total Creatine Kinase Total Protein Albumin Urine WBC (Auto) Urine Creatinine Hepatitis C Antibody 10/15/18 10/15/18 10/15/18 04:12 05:29 12:16 WBC RBC Hgb Hct MCV MCH MCHC Plt Count Lymph % (Auto) Lymph # Seg Neutrophils % Seg Neuts % (Manual) Lymphocytes % (Manual) Monocytes % (Manual) Nucleated RBC % Seg Neutrophils # Seg Neutrophils # Man Lymphocytes # (Manual) Monocytes # (Manual) Sodium 147 H Potassium Chloride 107.9 H Carbon Dioxide BUN 31 H Creatinine 1.8 H Glucose 162 H POC Glucose 164 H 152 H Lactic Acid Calcium 7.6 L AST Alkaline Phosphatase Ammonia Total Creatine Kinase Total Protein Albumin Urine WBC (Auto) Urine Creatinine Hepatitis C Antibody 10/15/18 10/15/18 10/15/18 12:22 12:27 12:27 WBC RBC Hgb Hct MCV MCH MCHC Plt Count Lymph % (Auto) Lymph # Seg Neutrophils % Seg Neuts % (Manual) Lymphocytes % (Manual) Monocytes % (Manual) Nucleated RBC % Seg Neutrophils # Seg Neutrophils # Man Lymphocytes # (Manual) Monocytes # (Manual) Sodium Potassium Chloride Carbon Dioxide BUN Creatinine Glucose POC Glucose Lactic Acid Calcium AST Alkaline Phosphatase Ammonia Total Creatine Kinase 1061 H Total Protein Albumin Urine WBC (Auto) 9.0 H Urine Creatinine 103.2 H Hepatitis C Antibody 10/15/18 10/16/18 10/16/18 21:44 05:26 05:26 WBC RBC 2.80 L Hgb 9.5 L Hct 28.1 L MCV 100 H MCH 34 H MCHC Plt Count 138 L Lymph % (Auto) Lymph # Seg Neutrophils % Seg Neuts % (Manual) 90.0 H Lymphocytes % (Manual) 6.0 L Monocytes % (Manual) Nucleated RBC % 1.0 H Seg Neutrophils # Seg Neutrophils # Man Lymphocytes # (Manual) 0.5 L Monocytes # (Manual) Sodium Potassium Chloride Carbon Dioxide BUN 32 H Creatinine 1.5 H Glucose 139 H POC Glucose 182 H Lactic Acid Calcium 7.7 L AST Alkaline Phosphatase Ammonia Total Creatine Kinase Total Protein Albumin Urine WBC (Auto) Urine Creatinine Hepatitis C Antibody 10/16/18 10/16/18 10/16/18 07:09 11:21 16:46 WBC RBC Hgb Hct MCV MCH MCHC Plt Count Lymph % (Auto) Lymph # Seg Neutrophils % Seg Neuts % (Manual) Lymphocytes % (Manual) Monocytes % (Manual) Nucleated RBC % Seg Neutrophils # Seg Neutrophils # Man Lymphocytes # (Manual) Monocytes # (Manual) Sodium Potassium Chloride Carbon Dioxide BUN Creatinine Glucose POC Glucose 135 H 147 H 169 H Lactic Acid Calcium AST Alkaline Phosphatase Ammonia Total Creatine Kinase Total Protein Albumin Urine WBC (Auto) Urine Creatinine Hepatitis C Antibody 10/16/18 10/17/18 10/17/18 21:44 04:34 04:34 WBC RBC 2.91 L Hgb 9.8 L Hct 29.1 L MCV 100 H MCH 34 H MCHC Plt Count Lymph % (Auto) Lymph # Seg Neutrophils % Seg Neuts % (Manual) 82.0 H Lymphocytes % (Manual) 8.0 L Monocytes % (Manual) Nucleated RBC % 1.0 H Seg Neutrophils # Seg Neutrophils # Man 8.9 H Lymphocytes # (Manual) 0.9 L Monocytes # (Manual) Sodium Potassium 3.1 L Chloride Carbon Dioxide 21 L BUN 29 H Creatinine Glucose 131 H POC Glucose 122 H Lactic Acid Calcium 7.3 L AST Alkaline Phosphatase Ammonia Total Creatine Kinase Total Protein Albumin Urine WBC (Auto) Urine Creatinine Hepatitis C Antibody 10/17/18 07:34 WBC RBC Hgb Hct MCV MCH MCHC Plt Count Lymph % (Auto) Lymph # Seg Neutrophils % Seg Neuts % (Manual) Lymphocytes % (Manual) Monocytes % (Manual) Nucleated RBC % Seg Neutrophils # Seg Neutrophils # Man Lymphocytes # (Manual) Monocytes # (Manual) Sodium Potassium Chloride Carbon Dioxide BUN Creatinine Glucose POC Glucose 137 H Lactic Acid Calcium AST Alkaline Phosphatase Ammonia Total Creatine Kinase Total Protein Albumin Urine WBC (Auto) Urine Creatinine Hepatitis C Antibody Allied health notes reviewed: nursing
--- NOTE | 2018-10-17 11:46 | Progress Note ---
Assessment and Plan Acute kidney injury, likely ischemic ATN, baseline Cr was normal Hyperkalemia secondary to ARF and lisinopril AG metabolic acidosis secondary to ARF and lactic acidosis Urospesis Metabolic encephalopathy - Renal function reviewed. Serum creatinine 1.1 today, yesterday's was 1.5, non- oliguric - Received 1 HD treatment on 10/13/18 due to Hyperkalemia and severe renal failure - No acute indication for HD. Will have vasc cath removed today - Cancel 24 hour urine collection and remove nueñz catheter today- spoke with nurse - Urine eosinophils- none seen - Renal ultrasound-no acute findings. No Hydronephrosis. - Strict I&O monitoring - Obtain daily weights - Renally dose medications - Avoid nephrotoxic agents - Continue to monitor renal function Subjective Date of service: 10/17/18 Principal diagnosis: Severe Sepsis; Ac encephalopathy; JENNIFER; Hyperkalemia; SBO; Rhabdomyolysis Interval history: Patient seen lying in bed. Awake. No family at bedside. Objective - Vital Signs Vital signs: Vital Signs - 12hr 10/17/18 10/17/18 10/17/18 01:52 07:29 08:00 Temperature 99.6 F 99.0 F Pulse Rate 118 H 107 H Pulse Rate [ 118 H Anterior Bilateral Throughout] Respiratory 20 20 Rate Respiratory 20 Rate [Anterior Bilateral Throughout] Blood Pressure 141/86 164/66 O2 Sat by Pulse 90 93 Oximetry 10/17/18 10/17/18 09:31 10:00 Temperature Pulse Rate 112 H Pulse Rate [ Anterior Bilateral Throughout] Respiratory Rate Respiratory Rate [Anterior Bilateral Throughout] Blood Pressure O2 Sat by Pulse 92 95 Oximetry - General Appearance General appearance: well-developed, appears stated age, fatigue EENT: ATNC, PERRL, hearing intact, vision intact Neck: no JVD, supple Respiratory: Present: Decreased Breath Sounds Cardiology: S1S2 Gastrointestinal: normoactive bowel sounds Integumentary: warm and dry Neurologic: other (Has Dementia. Awake and alert. Not oriented to place or time.) Musculoskeletal: other (No edema) - Lab 10/17/18 04:34 10/17/18 04:34 Most recent lab results Calcium 7.3 mg/dL (8.4-10.2) L 10/17/18 04:34 Phosphorus 3.40 mg/dL (2.5-4.5) 10/17/18 04:34 103.2 mg/dL (0.1-20.0) H 10/15/18 12:27 Medications & Allergies - Medications Allergies/Adverse Reactions: Allergies Sulfa (Sulfonamide Antibiotics) Allergy (Verified 05/09/18 17:10) Rash Home Medications: Home Medications Medication Instructions Recorded Confirmed Last Taken Type amLODIPine [Norvasc] 10 mg PO DAILY 02/21/18 10/13/18 10/12/18 History Lisinopril [Zestril] 10 mg PO DAILY 05/10/18 10/13/18 10/12/18 History Pantoprazole [Protonix TAB] 40 mg PO BID #60 tablet 05/14/18 10/13/18 10/12/18 Rx traMADol [Ultram 50 MG tab] 50 mg PO Q8H PRN #20 tablet 05/24/18 10/13/18 10/12/18 Rx Amitriptyline [Elavil] 25 mg PO QHS 10/13/18 10/13/18 10/12/18 History Bimatoprost [Lumigan 0.01%] 1 drop OP QPM 10/13/18 10/13/18 10/12/18 History Clopidogrel [Plavix] 75 mg PO QDAY 10/13/18 10/13/18 10/12/18 History Cyclobenzaprine [Flexeril 10 MG 10 mg PO BID 10/13/18 10/13/18 10/12/18 History TAB] Gabapentin [Neurontin] 600 mg PO Q8H 10/13/18 10/13/18 10/12/18 History metFORMIN [Glucophage] 500 mg PO QDAY 10/13/18 10/13/18 10/12/18 History Active Medications: Generic Name Dose Route Start Last Admin Trade Name Freq PRN Reason Stop Dose Admin Acetaminophen 650 mg 10/13/18 19:41 10/16/18 22:03 Tylenol PO 650 mg Q4H PRN Administration Pain MILD(1-3)/Fever >100.5/BURTON Albuterol 2.5 mg 10/14/18 10:38 Proventil IH Q4HRT PRN Shortness Of Breath Albuterol/Ipratropium 1 ampul 10/14/18 14:00 10/17/18 09:28 Duoneb *Not For Prn Use* IH 1 ampul TIDRT LUDA Administration Bisacodyl 10 mg 10/14/18 16:00 10/17/18 09:45 Dulcolax MA 10 mg QDAY LUDA Administration Cephalexin 500 mg 10/16/18 22:00 10/17/18 09:45 Keflex PO 10/19/18 23:59 500 mg Q12HR LUDA Administration Docusate Sodium 100 mg 10/15/18 22:00 10/17/18 10:33 Colace PO 100 mg BID LUDA Administration Hydromorphone HCl 0.5 mg 10/14/18 12:23 10/16/18 02:03 Dilaudid IV 0.5 mg Q3H PRN Administration Pain , Severe (7-10) Sodium Chloride 100 mls @ 999 mls/hr 10/13/18 16:23 Nacl 0.9% IV STEVE PRN Hypotension Sodium Chloride 1,000 mls @ 75 mls/hr 10/15/18 16:00 10/16/18 22:10 Nacl 0.9% 1000 Ml IV 75 mls/hr DIRECT LUDA Administration Insulin Human Lispro 0 unit 10/15/18 16:30 10/17/18 09:45 Humalog SUB-Q Not Given ACHS [facility] Protocol Metoclopramide HCl 10 mg 10/13/18 19:41 Reglan IV Q6H PRN Nausea And Vomiting Nicotine 14 mg 10/14/18 10:00 10/17/18 09:45 Habitrol TD 14 mg QDAY LUDA Administration Ondansetron HCl 4 mg 10/13/18 19:41 10/15/18 03:58 Zofran IV 4 mg Q3H PRN Administration Nausea And Vomiting Pantoprazole Sodium 40 mg 10/16/18 22:00 10/17/18 09:45 Protonix PO 40 mg BID LUDA Administration Polyethylene Glycol 17 gm 10/15/18 13:00 10/17/18 10:08 Miralax 3350 PO 17 gm QDAY LUDA Administration Sodium Chloride 10 ml 10/13/18 22:00 10/17/18 09:46 Sodium Chloride Flush Syringe 10 Ml IV 10 ml BID LUDA Administration Sodium Chloride 10 ml 10/13/18 19:41 Sodium Chloride Flush Syringe 10 Ml IV PRN PRN LINE FLUSH Sucralfate 1 gm 10/15/18 16:30 10/17/18 09:44 Carafate PO 1 gm ACHS LUDA Administration
[2018-10-17] MEDS ORDERED: TRIPLE ANTIBIOTIC TP STA (12:36)
--- NOTE | 2018-10-17 12:48 | XRay Report ---
CHEST 2 VIEWS INDICATION / CLINICAL INFORMATION: fever. COMPARISON: 10/14/2018. FINDINGS: SUPPORT DEVICES: Right IJ centimeters catheter appears stable in position. HEART / MEDIASTINUM: Normal heart size. Atherosclerosis in the thoracic aorta. LUNGS / PLEURA: There are tiny bilateral pleural effusions without significant pulmonary parenchymal abnormality. No pneumothorax. ADDITIONAL FINDINGS: No significant additional findings. IMPRESSION: 1. Tiny bilateral pleural effusions. No acute pulmonary parenchymal abnormality. Signer Name: Elias Brian MD Signed: 10/17/2018 12:44 PM Workstation Name: [id number]
--- NOTE | 2018-10-17 12:52 | Progress Note ---
Assessment and Plan Assessment and plan: 67 year old woman who presented to the hospital complaining of altered mental status, abdominal pain and low blood pressure was Vora in the ER. She was confused upon arrival what is oriented to person and place but not the time. Past medical history includes CVA diabetes hypertension COPD and chronic kidney disease Cxr No significant abnormalities Axr Neg CT abdomen and pelvis shows a few mildly dilated loops of proximal small bowel and Trace ascites CT head shows no acute abnormality Renal ultrasound shows no acute sonographic animality of the kidneys Repeat chest x-ray and abdominal x-ray shows only mild fecal retention Sepsis; cont sepsis protocol Acute on chronic kidney disease , improved with IV fluids, nephrology seeing patient UTI , continue antibiotics, urine culture growing E coli sens to Keflex, cont keflex to complete 7 days acute hyperkalemia, has been medically treated, received HD, now resolved, Vas cath removed on 10/17 hypokalemia, mg is normal, repleted IV, recheck in am partial bowel obstruction , ADAT per GS, doing well, resolving acute toxic metabolic encephalopathy; improving Rhabdomyolysis, continue IV fluids Hepatitis C antibody positive, previously positive in 2014, fup viral load Hallucations now resolved, Mental health consult appreciated, geripsych consult appreciated dvt ppx; lovenox Dispo; PT note reviewed, to SNF History Interval history: no fevers patient is no longer confuse altered no vomiting, no diarrhea Hospitalist Physical - Physical exam Narrative exam: General appearance: Present: no acute distress, other (confused) - EENT Eyes: Present: PERRL - Neck Neck: Present: supple - Respiratory Respiratory: bilateral: CTA - Cardiovascular Rhythm: regular Heart Sounds: Present: S1 & S2 - Extremities Extremities: no ischemia - Abdominal General gastrointestinal: soft, non-tender - Integumentary Integumentary: Present: clear, warm, dry - Psychiatric Psychiatric: calm and cooperative, intact judgment & insight - Neurologic Neurologic: CNII-XII intact, no focal deficits - Constitutional Vitals: Temp Pulse Resp BP Pulse Ox 99.0 F 112 H 20 164/66 95 10/17/18 07:29 10/17/18 10:00 10/17/18 08:00 10/17/18 07:29 10/17/18 10:00 General appearance: Present: other (confused) Results - Labs CBC & Chem 7: 10/18/18 09:21 10/18/18 09:21 Labs: Laboratory Last Values WBC 10.9 K/mm3 (4.5-11.0) 10/17/18 04:34 RBC 2.91 M/mm3 (3.65-5.03) L 10/17/18 04:34 Hgb 9.8 gm/dl (10.1-14.3) L 10/17/18 04:34 Hct 29.1 % (30.3-42.9) L 10/17/18 04:34 MCV 100 fl (79-97) H 10/17/18 04:34 MCH 34 pg (28-32) H 10/17/18 04:34 MCHC 34 % (30-34) 10/17/18 04:34 RDW 14.4 % (13.2-15.2) 10/17/18 04:34 Plt Count 149 K/mm3 (140-440) 10/17/18 04:34 Lymph % (Auto) 6.4 % (13.4-35.0) L 10/14/18 04:36 [place] % (Auto) 4.4 % (0.0-7.3) 10/14/18 04:36 Eos % (Auto) 0.4 % (0.0-4.3) 10/14/18 04:36 Baso % (Auto) 0.4 % (0.0-1.8) 10/14/18 04:36 Lymph # 1.1 K/mm3 (1.2-5.4) L 10/14/18 04:36 [place] # 0.7 K/mm3 (0.0-0.8) 10/14/18 04:36 Eos # 0.1 K/mm3 (0.0-0.4) 10/14/18 04:36 Baso # 0.1 K/mm3 (0.0-0.1) 10/14/18 04:36 Add Manual Diff Complete 10/17/18 04:34 Total Counted 100 10/17/18 04:34 Seg Neutrophils % 88.4 % (40.0-70.0) H 10/14/18 04:36 Seg Neuts % (Manual) 82.0 % (40.0-70.0) H 10/17/18 04:34 2.0 % 10/17/18 04:34 8.0 % (13.4-35.0) L 10/17/18 04:34 Reactive Lymphs % (Man) 0 % 10/17/18 04:34 7.0 % (0.0-7.3) 10/17/18 04:34 0 % (0.0-4.3) 10/17/18 04:34 0 % (0.0-1.8) 10/17/18 04:34 1.0 % 10/17/18 04:34 0 % 10/17/18 04:34 0 % 10/17/18 04:34 0 % 10/17/18 04:34 Nucleated RBC % 1.0 % (0.0-0.9) H 10/17/18 04:34 Seg Neutrophils # 14.6 K/mm3 (1.8-7.7) H 10/14/18 04:36 Seg Neutrophils # Man 8.9 K/mm3 (1.8-7.7) H 10/17/18 04:34 Band Neutrophils # 0.2 K/mm3 10/17/18 04:34 0.9 K/mm3 (1.2-5.4) L 10/17/18 04:34 Abs React Lymphs (Man) 0.0 K/mm3 10/17/18 04:34 0.8 K/mm3 (0.0-0.8) 10/17/18 04:34 0.0 K/mm3 (0.0-0.4) 10/17/18 04:34 0.0 K/mm3 (0.0-0.1) 10/17/18 04:34 0.1 K/mm3 10/17/18 04:34 0.0 K/mm3 10/17/18 04:34 0.0 K/mm3 10/17/18 04:34 Blast Cells # 0.0 K/mm3 10/17/18 04:34 WBC Morphology Not Reportable 10/17/18 04:34 Hypersegmented Neuts Not Reportable 10/17/18 04:34 Hyposegmented Neuts Not Reportable 10/17/18 04:34 Hypogranular Neuts Not Reportable 10/17/18 04:34 Not Reportable 10/17/18 04:34 Not Reportable 10/17/18 04:34 Not Reportable 10/17/18 04:34 Not Reportable 10/17/18 04:34 Not Reportable 10/17/18 04:34 Not Reportable 10/17/18 04:34 Consistent w auto 10/17/18 04:34 Not Reportable 10/17/18 04:34 Plt Clumps, EDTA Not Reportable 10/17/18 04:34 Not Reportable 10/17/18 04:34 Not Reportable 10/17/18 04:34 Not Reportable 10/17/18 04:34 Plt Morphology Comment Not Reportable 10/17/18 04:34 RBC Morphology Not Reportable 10/17/18 04:34 Dimorphic RBCs Not Reportable 10/17/18 04:34 Not Reportable 10/17/18 04:34 Not Reportable 10/17/18 04:34 Rare 10/17/18 04:34 Few 10/17/18 04:34 Not Reportable 10/17/18 04:34 Not Reportable 10/17/18 04:34 Not Reportable 10/17/18 04:34 Not Reportable 10/17/18 04:34 Not Reportable 10/17/18 04:34 Not Reportable 10/17/18 04:34 Not Reportable 10/17/18 04:34 Not Reportable 10/17/18 04:34 Not Reportable 10/17/18 04:34 Not Reportable 10/17/18 04:34 Not Reportable 10/17/18 04:34 Not Reportable 10/17/18 04:34 Not Reportable 10/17/18 04:34 Not Reportable 10/17/18 04:34 Not Reportable 10/17/18 04:34 Acanthocytes (Spur) Not Reportable 10/17/18 04:34 Rouleaux Not Reportable 10/17/18 04:34 Not Reportable 10/17/18 04:34 Not Reportable 10/17/18 04:34 Not Reportable 10/17/18 04:34 Not Reportable 10/17/18 04:34 Hem Pathologist Commnt No 10/17/18 04:34 APTT 30.9 Sec. (24.2-36.6) 10/13/18 09:17 Sodium 138 mmol/L (137-145) 10/17/18 04:34 Potassium 3.1 mmol/L (3.6-5.0) L 10/17/18 04:34 Chloride 102.3 mmol/L (98-107) 10/17/18 04:34 Carbon Dioxide 21 mmol/L (22-30) L 10/17/18 04:34 18 mmol/L 10/17/18 04:34 BUN 29 mg/dL (7-17) H 10/17/18 04:34 1.1 mg/dL (0.7-1.2) 10/17/18 04:34 Estimated GFR 49 ml/min 10/17/18 04:34 26 % 10/17/18 04:34 Glucose 131 mg/dL (65-100) H 10/17/18 04:34 POC Glucose 151 (70-105) H 10/17/18 11:22 5.5 % (4-6) 10/13/18 09:17 Lactic Acid 3.30 mmol/L (0.7-2.0) H* 10/14/18 11:23 Calcium 7.3 mg/dL (8.4-10.2) L 10/17/18 04:34 Phosphorus 3.40 mg/dL (2.5-4.5) 10/17/18 04:34 0.20 mg/dL (0.1-1.2) 10/13/18 11:09 AST 73 units/L (5-40) H 10/13/18 11:09 ALT 18 units/L (7-56) 10/13/18 11:09 268 units/L (35-129) H 10/13/18 11:09 72.0 umol/L (25-60) H 10/13/18 09:17 1061 units/L (30-135) H 10/15/18 12:22 0.029 ng/mL (0.00-0.029) 10/13/18 09:17 6.0 g/dL (6.3-8.2) L 10/13/18 11:09 3.0 g/dL (3.9-5) L 10/13/18 11:09 1.0 % 10/13/18 11:09 17 units/L (13-60) 10/13/18 09:17 TSH 2.920 mlU/mL (0.270-4.200) 10/13/18 09:17 [place] (Yellow) 10/15/18 12:27 Slightly-cloudy (Clear) 10/15/18 12:27 6.0 (5.0-7.0) 10/15/18 12:27 Ur Specific [place] 1.020 (1.003-1.030) 10/15/18 12:27 100 mg/dl mg/dL (Negative) 10/15/18 12:27 Neg mg/dL (Negative) 10/15/18 12:27 Tr mg/dL (Negative) 10/15/18 12:27 Mod (Negative) 10/15/18 12:27 Neg (Negative) 10/15/18 12:27 Neg (Negative) 10/15/18 12:27 < 2.0 mg/dL (<2.0) 10/15/18 12:27 Ur Leukocyte Esterase Neg (Negative) 10/15/18 12:27 9.0 /HPF (0.0-6.0) H 10/15/18 12:27 2.0 /HPF (0.0-6.0) 10/15/18 12:27 U Epithel Cells (Auto) 3.0 /HPF (0-13.0) 10/15/18 12:27 2+ /HPF (Negative) 10/13/18 08:32 3+ /HPF 10/13/18 08:32 Few /HPF 10/15/18 12:27 None seen (None Seen) 10/15/18 12:27 103.2 mg/dL (0.1-20.0) H 10/15/18 12:27 Hepatitis A IgM Ab Non-reactive (NonReactive) 10/13/18 18:08 Hep Bs Antigen Non-reactive (Negative) 10/13/18 18:08 Hep B Core IgM Ab Non-reactive (NonReactive) 10/13/18 18:08 Reactive (NonReactive) A 10/13/18 18:08 Active Medications - Current Medications Current Medications: Generic Name Dose Route Start Last Admin Trade Name Freq PRN Reason Stop Dose Admin Acetaminophen 650 mg 10/13/18 19:41 10/16/18 22:03 Tylenol PO 650 mg Q4H PRN Administration Pain MILD(1-3)/Fever >100.5/BURTON Albuterol 2.5 mg 10/14/18 10:38 Proventil IH Q4HRT PRN Shortness Of Breath Albuterol/Ipratropium 1 ampul 10/14/18 14:00 10/17/18 09:28 Duoneb *Not For Prn Use* IH 1 ampul TIDRT LUDA Administration Bisacodyl 10 mg 10/14/18 16:00 10/17/18 09:45 Dulcolax MD 10 mg QDAY LUDA Administration Cephalexin 500 mg 10/16/18 22:00 10/17/18 09:45 Keflex PO 10/19/18 23:59 500 mg Q12HR LUDA Administration Docusate Sodium 100 mg 10/15/18 22:00 10/17/18 10:33 Colace PO 100 mg BID LUDA Administration Hydromorphone HCl 0.5 mg 10/14/18 12:23 10/16/18 02:03 Dilaudid IV 0.5 mg Q3H PRN Administration Pain , Severe (7-10) Sodium Chloride 100 mls @ 999 mls/hr 10/13/18 16:23 Nacl 0.9% IV STEVE PRN Hypotension Sodium Chloride 1,000 mls @ 75 mls/hr 10/15/18 16:00 10/16/18 22:10 Nacl 0.9% 1000 Ml IV 75 mls/hr DIRECT LUDA Administration Potassium Chloride 40 meq/ 520 mls @ 125 mls/hr 10/17/18 13:30 Sodium Chloride IV 10/17/18 17:40 DIRECT LUDA Insulin Human Lispro 0 unit 10/15/18 16:30 10/17/18 09:45 Humalog SUB-Q Not Given ACHS [facility] Protocol Metoclopramide HCl 10 mg 10/13/18 19:41 Reglan IV Q6H PRN Nausea And Vomiting Nicotine 14 mg 10/14/18 10:00 10/17/18 09:45 Habitrol TD 14 mg QDAY LUDA Administration Ondansetron HCl 4 mg 10/13/18 19:41 10/15/18 03:58 Zofran IV 4 mg Q3H PRN Administration Nausea And Vomiting Pantoprazole Sodium 40 mg 10/16/18 22:00 10/17/18 09:45 Protonix PO 40 mg BID LUDA Administration Polyethylene Glycol 17 gm 10/15/18 13:00 10/17/18 10:08 Miralax 3350 PO 17 gm QDAY LUDA Administration Sodium Chloride 10 ml 10/13/18 22:00 10/17/18 09:46 Sodium Chloride Flush Syringe 10 Ml IV 10 ml BID LUDA Administration Sodium Chloride 10 ml 10/13/18 19:41 Sodium Chloride Flush Syringe 10 Ml IV PRN PRN LINE FLUSH Sucralfate 1 gm 10/15/18 16:30 10/17/18 09:44 Carafate PO 1 gm ACHS LUDA Administration Nutrition/Malnutrition Assess - Dietary Evaluation Nutrition/Malnutrition Findings: Nutrition Notes Start: 10/14/18 11:37 Freq: Status: Active Protocol: Document 10/16/18 16:28 RM (Rec: 10/16/18 16:35 RM [id number]) Nutrition Notes Initial or Follow up Reassessment Current Diagnosis CKD(stage I-IV),COPD,Diabetes, Sepsis,Hypertension,Stroke Other Pertinent Diagnosis UTI, Acute Encephalopathy, Hep C, Partial SBO Current Diet GI soft Labs/Tests Reviewed Pertinent Medications Zofran Height 5 ft 2 in Weight 61.9 kg [place] Body Weight (kg) 50.00 BMI 25.0 Subjective/Other Information Pt moved from ICU to [facility]. Pt stated that her appetite is poor d/t her being uncomfortable and abdominal pain. Stated that she has not eaten her first meal yet. Declined ONS for now d/t wanting to try to eat. Percent of energy/protein needs met: 0%/0% Burn Absent Trauma Absent #1 Nutrition Diagnosis Inadequate oral intake Diagnosis Progress(for reassessment Continues documentation) Is patient on ventilator? No Is Patient Ambulatory and/or Out of Bed Yes REE-([facility]-ambulatory/OOB) [ [id number] [id number]] Calculation Used for Recommendations [facility] Additional Notes Protein needs: 50-62g(0.8-1g/ kg) Fluid needs: 1ml/kcal Nutrition Intervention Change Diet Order: Continue current Goal #1 Meet at least 75% of calorie and protein needs via PO intakes Anticipated Discharge Needs: Unable to determine at this time Follow-Up By: 10/20/18 Additional Comments Follow for PO intakes
[2018-10-17] MEDS: NACL 0.9% 1000 ML 1,000 ML IV SCH (13:22)
[2018-10-17] MEDS ORDERED: KCL 40 MEQ in NACL 0.45% 500 ML IV SCH (13:30)
--- NOTE | 2018-10-17 13:53 | Progress Note ---
Subjective - Reason for Consult Consult date: 10/17/18 Reason for consult: Psychiatry Follow-up - Chief Complaint Chief complaint: "I'm having issue sleeping" 67-year-old female presented to the Er for AMS. Today the patient was calm and cooperative during the assessment. The patient stated that she haven't been sleeping for the past 2 nights. The patient is experiencing abdomen pain throughout the day since her admission. She would like something for sleep. She denies Si/HI's and AVH's. Mental Status Exam - Vital signs Last Vital Signs Temp 99.0 F 10/17/18 07:29 Pulse 112 H 10/17/18 10:00 Resp 20 10/17/18 08:00 BP 164/66 10/17/18 07:29 Pulse Ox 95 10/17/18 10:00 - Exam Narrative exam: MSE: Appearance: calm, cooperative Behavior: regular eye contact Speech: regular rate and tone Mood: "okay" Affect: congruent to mood Thought Process: linear Thought Content: denies SI/HI's and AVH's Motor Activity: sitting up in bed Cognition: A/O x3 Insight: appropriate Judgment: appropriate Assessment and Plan Impression: Insomnia. Today the patient was calm and cooperative during the assessment. The patient's mental status has improved. Recommendation/Plan: Start Melatoni 5 mg PO HS. Will follow up with the patient in 24 hours. Will staff with Dr Thom Baker.
[2018-10-17] MEDS ORDERED: TRIPLE ANTIBIOTIC TP ONE (16:09)
[2018-10-17] MEDS: TYLENOL PO PRN (21:45)
[2018-10-17] MEDS: BENADRYL PO PRN (23:20)
[2018-10-17] MEDS: APRESOLINE IV PRN (23:20)
[2018-10-18] MEDS: DILAUDID IV PRN ×2 (00:03→21:13)
[2018-10-18] MEDS: DUONEB *Not for PRN Use IH SCH ×3 (08:09→20:33)
[2018-10-18] MEDS: CARAFATE PO SCH ×4 (08:27→21:13)
[2018-10-18] MEDS: HumaLOG SUB-Q SCH ×4 (08:28→21:25)
--- NOTE | 2018-10-18 08:37 | Progress Note ---
Subjective - Reason for Consult Consult date: 10/18/18 Reason for consult: Psychiatry Follow-up - Chief Complaint Chief complaint: "Hello" 67-year-old female presented to the Er for AMS. Today the patient was calm and cooperative during the assessment. the patient was eating her breakfast when I the provider arrived to her room. She stated that she may have another "scan" of her abdomen today. She stated that she slept "a little better" last night. She denies SI/HI's and AVH's. Mental Status Exam - Vital signs Last Vital Signs Temp 98.8 F 10/18/18 07:36 Pulse 114 H 10/18/18 07:36 Resp 18 10/18/18 07:36 BP 126/90 10/18/18 07:36 Pulse Ox 95 10/18/18 08:09 - Exam Narrative exam: MSE: Appearance: calm, cooperative Behavior: regular eye contact Speech: regular rate and tone Mood: "okay" Affect: congruent to mood Thought Process: linear Thought Content: denies SI/HI's and AVH's Motor Activity: sitting up in bed Cognition: A/O x3 Insight: appropriate Judgment: appropriate Assessment and Plan Impression: Insomnia. Today the patient was calm and cooperative during the assessment. The patient's mental status has improved. Recommendation/Plan: Start Melatoni 5 mg PO HS PRN for sleep. Psy sign off. Will staff with Dr Thom Baker.
[2018-10-18] MEDS: DULCOLAX PR SCH (09:29)
[2018-10-18] MEDS: MIRALAX 3350 PO SCH (09:29)
[2018-10-18] MEDS: KEFLEX PO SCH ×2 (09:29→21:12)
[2018-10-18] MEDS: PROTONIX PO SCH ×2 (09:29→21:12)
[2018-10-18] MEDS: COLACE PO SCH ×2 (09:29→21:13)
[2018-10-18] MEDS: SODIUM CHLORIDE FLUSH SYRINGE 10 ML IV SCH ×2 (09:30→21:14)
[2018-10-18] MEDS: HABITROL TD SCH (09:30)
[2018-10-18 09:31] LABS: Hematocrit 27.4 % (30.3-42.9); Hemoglobin 9.5 gm/dl (10.1-14.3); Mean Corpuscular HGB Conc 35 % (30-34); Mean Corpuscular Volume 98 fl (79-97); Platelet Count 184 K/mm3 (140-440); Red Cell Distribution Width 14.1 % (13.2-15.2)
[2018-10-18 09:53] LABS: Calcium 7.7 mg/dL (8.4-10.2)
--- NOTE | 2018-10-18 09:58 | Progress Note ---
Assessment and Plan Sepsis- improved Acute encephalopathy-improved Acute kidney injury secondary to ATN, improved Hyperkalemia severe, resolved Small bowel obstruction Rhabdomyolysis - prn antiemetics - bowel regimen - wean suppplemental oxygen to for O2 sats >90% - supportive transfusions as needed to keep HgB >7g/dL - continue VTE prophylaxis ( SCDs) - continue PPI therapy - continue bronchodilators with pulmonary hygiene per RT - continue mobility protocol - PT/OT as tolerated - continue close monitoring of renal function and hemodynamics - continue accuchecks with glycemic control per SSI for target blood glucose 140-180mg/dL Discussed with hospitalist service re abdominal distension. CT scan of the abdomen and pelvis with oral contrast may help with evaluation. Subjective Date of service: 10/18/18 Principal diagnosis: Severe Sepsis; Ac encephalopathy; JENNIFER; Hyperkalemia; SBO; Rhabdomyolysis Interval history: Patient is seen today for: Severe Sepsis; Acute encephalopathy; Acute kidney injury; Hyperkalemia severe; Small bowel obstruction; Abdominal Pain; Rhabdomyolysis Seen and examined at bedside; 24hour events reviewed; nursing and respiratory care staff consulted; no adverse overnight events reported to me; resting peacefully in bed; remains on supplemental oxygen; denies acute chest pains or palpitations; No N/V/F/C; + abdominal discomfort with distension Objective Vital Signs - 12hr 10/17/18 10/17/18 10/17/18 22:00 22:17 23:20 Temperature Pulse Rate 118 H 118 H 118 H Respiratory Rate Blood Pressure 170/75 Blood Pressure 170/75 [Left] O2 Sat by Pulse Oximetry 10/18/18 10/18/18 10/18/18 02:27 07:36 08:09 Temperature 98.9 F 98.8 F Pulse Rate 111 H 114 H Respiratory 22 18 Rate Blood Pressure 147/72 126/90 Blood Pressure [Left] O2 Sat by Pulse 95 96 95 Oximetry Constitutional: alert, appears uncomfortable, other (elderly looking CF, normocephalic and atraumatic ) Eyes: non-icteric ENT: oropharynx moist, other (mallampati 3) Neck: supple, no lymphadenopathy, no JVD Effort: normal Ascultation: Bilateral: diminished breath sounds, rhonchi (scant) Percussion: Bilateral: not dull Cardiovascular: regular rate and rhythm Gastrointestinal: normoactive bowel sounds, tender (mildly all quadrants), other (firm and distended) Integumentary: normal Extremities: no cyanosis, no edema, pink and warm, pulses normal Neurologic: normal mental status, non-focal exam, pupils equal and round, CN II- XII normal, motor strength normal and Psychiatric: mood appropriate, affect normal CBC and BMP: 10/19/18 05:13 10/19/18 05:13 Abnormal lab findings: Abnormal Labs 10/13/18 10/13/18 10/13/18 08:32 08:36 09:17 WBC 31.8 H RBC Hgb Hct 44.2 H MCV 102 H MCH 33 H MCHC Plt Count Lymph % (Auto) Lymph # Seg Neutrophils % Seg Neuts % (Manual) 83.0 H Lymphocytes % (Manual) 3.0 L Monocytes % (Manual) 10.0 H Nucleated RBC % Seg Neutrophils # Seg Neutrophils # Man 26.4 H Lymphocytes # (Manual) 1.0 L Monocytes # (Manual) 3.2 H Sodium Potassium Chloride Carbon Dioxide BUN Creatinine Glucose POC Glucose 281 H Lactic Acid Calcium AST Alkaline Phosphatase Ammonia Total Creatine Kinase Total Protein Albumin Urine WBC (Auto) > 182.0 H Urine Creatinine Hepatitis C Antibody 10/13/18 10/13/18 10/13/18 09:17 09:17 11:09 WBC RBC Hgb Hct MCV MCH MCHC Plt Count Lymph % (Auto) Lymph # Seg Neutrophils % Seg Neuts % (Manual) Lymphocytes % (Manual) Monocytes % (Manual) Nucleated RBC % Seg Neutrophils # Seg Neutrophils # Man Lymphocytes # (Manual) Monocytes # (Manual) Sodium Potassium 8.7 H* Chloride Carbon Dioxide 8 L* BUN 31 H Creatinine 3.2 H Glucose 264 H POC Glucose Lactic Acid 4.90 H* Calcium AST 67 H Alkaline Phosphatase 268 H Ammonia 72.0 H Total Creatine Kinase Total Protein Albumin 3.2 L Urine WBC (Auto) Urine Creatinine Hepatitis C Antibody 10/13/18 10/13/18 10/13/18 11:09 11:47 12:20 WBC RBC Hgb Hct MCV MCH MCHC Plt Count Lymph % (Auto) Lymph # Seg Neutrophils % Seg Neuts % (Manual) Lymphocytes % (Manual) Monocytes % (Manual) Nucleated RBC % Seg Neutrophils # Seg Neutrophils # Man Lymphocytes # (Manual) Monocytes # (Manual) Sodium Potassium 8.1 H* Chloride 111.0 H Carbon Dioxide 12 L BUN 31 H Creatinine 2.9 H Glucose 225 H POC Glucose 225 H Lactic Acid 5.20 H* Calcium AST 73 H Alkaline Phosphatase 268 H Ammonia Total Creatine Kinase Total Protein 6.0 L Albumin 3.0 L Urine WBC (Auto) Urine Creatinine Hepatitis C Antibody 10/13/18 10/13/18 10/13/18 12:30 12:30 18:08 WBC RBC Hgb Hct MCV MCH MCHC Plt Count Lymph % (Auto) Lymph # Seg Neutrophils % Seg Neuts % (Manual) Lymphocytes % (Manual) Monocytes % (Manual) Nucleated RBC % Seg Neutrophils # Seg Neutrophils # Man Lymphocytes # (Manual) Monocytes # (Manual) Sodium Potassium 8.1 H* Chloride 107.8 H Carbon Dioxide 11 L BUN 32 H Creatinine 2.9 H Glucose 329 H POC Glucose Lactic Acid Calcium AST Alkaline Phosphatase Ammonia Total Creatine Kinase 5299 H Total Protein Albumin Urine WBC (Auto) Urine Creatinine Hepatitis C Antibody Reactive A 10/14/18 10/14/18 10/14/18 04:36 04:36 05:35 WBC 16.5 H RBC 3.51 L Hgb Hct MCV 98 H MCH 34 H MCHC 35 H Plt Count Lymph % (Auto) 6.4 L Lymph # 1.1 L Seg Neutrophils % 88.4 H Seg Neuts % (Manual) Lymphocytes % (Manual) Monocytes % (Manual) Nucleated RBC % Seg Neutrophils # 14.6 H Seg Neutrophils # Man Lymphocytes # (Manual) Monocytes # (Manual) Sodium Potassium 5.1 H D Chloride Carbon Dioxide BUN 19 H Creatinine 1.5 H Glucose 155 H POC Glucose 142 H Lactic Acid Calcium 7.6 L AST Alkaline Phosphatase Ammonia Total Creatine Kinase Total Protein Albumin Urine WBC (Auto) Urine Creatinine Hepatitis C Antibody 10/14/18 10/14/18 10/14/18 11:23 11:23 11:42 WBC RBC Hgb Hct MCV MCH MCHC Plt Count Lymph % (Auto) Lymph # Seg Neutrophils % Seg Neuts % (Manual) Lymphocytes % (Manual) Monocytes % (Manual) Nucleated RBC % Seg Neutrophils # Seg Neutrophils # Man Lymphocytes # (Manual) Monocytes # (Manual) Sodium Potassium Chloride Carbon Dioxide BUN Creatinine Glucose POC Glucose 154 H Lactic Acid 3.30 H* Calcium AST Alkaline Phosphatase Ammonia Total Creatine Kinase 1935 H Total Protein Albumin Urine WBC (Auto) Urine Creatinine Hepatitis C Antibody 10/14/18 10/14/18 10/15/18 17:39 23:18 04:12 WBC RBC 3.22 L Hgb Hct MCV 99 H MCH 34 H MCHC Plt Count Lymph % (Auto) Lymph # Seg Neutrophils % Seg Neuts % (Manual) 83.0 H Lymphocytes % (Manual) 10.0 L Monocytes % (Manual) Nucleated RBC % Seg Neutrophils # Seg Neutrophils # Man Lymphocytes # (Manual) 0.9 L Monocytes # (Manual) Sodium Potassium Chloride Carbon Dioxide BUN Creatinine Glucose POC Glucose 171 H 176 H Lactic Acid Calcium AST Alkaline Phosphatase Ammonia Total Creatine Kinase Total Protein Albumin Urine WBC (Auto) Urine Creatinine Hepatitis C Antibody 10/15/18 10/15/18 10/15/18 04:12 05:29 12:16 WBC RBC Hgb Hct MCV MCH MCHC Plt Count Lymph % (Auto) Lymph # Seg Neutrophils % Seg Neuts % (Manual) Lymphocytes % (Manual) Monocytes % (Manual) Nucleated RBC % Seg Neutrophils # Seg Neutrophils # Man Lymphocytes # (Manual) Monocytes # (Manual) Sodium 147 H Potassium Chloride 107.9 H Carbon Dioxide BUN 31 H Creatinine 1.8 H Glucose 162 H POC Glucose 164 H 152 H Lactic Acid Calcium 7.6 L AST Alkaline Phosphatase Ammonia Total Creatine Kinase Total Protein Albumin Urine WBC (Auto) Urine Creatinine Hepatitis C Antibody 10/15/18 10/15/18 10/15/18 12:22 12:27 12:27 WBC RBC Hgb Hct MCV MCH MCHC Plt Count Lymph % (Auto) Lymph # Seg Neutrophils % Seg Neuts % (Manual) Lymphocytes % (Manual) Monocytes % (Manual) Nucleated RBC % Seg Neutrophils # Seg Neutrophils # Man Lymphocytes # (Manual) Monocytes # (Manual) Sodium Potassium Chloride Carbon Dioxide BUN Creatinine Glucose POC Glucose Lactic Acid Calcium AST Alkaline Phosphatase Ammonia Total Creatine Kinase 1061 H Total Protein Albumin Urine WBC (Auto) 9.0 H Urine Creatinine 103.2 H Hepatitis C Antibody 10/15/18 10/16/18 10/16/18 21:44 05:26 05:26 WBC RBC 2.80 L Hgb 9.5 L Hct 28.1 L MCV 100 H MCH 34 H MCHC Plt Count 138 L Lymph % (Auto) Lymph # Seg Neutrophils % Seg Neuts % (Manual) 90.0 H Lymphocytes % (Manual) 6.0 L Monocytes % (Manual) Nucleated RBC % 1.0 H Seg Neutrophils # Seg Neutrophils # Man Lymphocytes # (Manual) 0.5 L Monocytes # (Manual) Sodium Potassium Chloride Carbon Dioxide BUN 32 H Creatinine 1.5 H Glucose 139 H POC Glucose 182 H Lactic Acid Calcium 7.7 L AST Alkaline Phosphatase Ammonia Total Creatine Kinase Total Protein Albumin Urine WBC (Auto) Urine Creatinine Hepatitis C Antibody 10/16/18 10/16/18 10/16/18 07:09 11:21 16:46 WBC RBC Hgb Hct MCV MCH MCHC Plt Count Lymph % (Auto) Lymph # Seg Neutrophils % Seg Neuts % (Manual) Lymphocytes % (Manual) Monocytes % (Manual) Nucleated RBC % Seg Neutrophils # Seg Neutrophils # Man Lymphocytes # (Manual) Monocytes # (Manual) Sodium Potassium Chloride Carbon Dioxide BUN Creatinine Glucose POC Glucose 135 H 147 H 169 H Lactic Acid Calcium AST Alkaline Phosphatase Ammonia Total Creatine Kinase Total Protein Albumin Urine WBC (Auto) Urine Creatinine Hepatitis C Antibody 10/16/18 10/17/18 10/17/18 21:44 04:34 04:34 WBC RBC 2.91 L Hgb 9.8 L Hct 29.1 L MCV 100 H MCH 34 H MCHC Plt Count Lymph % (Auto) Lymph # Seg Neutrophils % Seg Neuts % (Manual) 82.0 H Lymphocytes % (Manual) 8.0 L Monocytes % (Manual) Nucleated RBC % 1.0 H Seg Neutrophils # Seg Neutrophils # Man 8.9 H Lymphocytes # (Manual) 0.9 L Monocytes # (Manual) Sodium Potassium 3.1 L Chloride Carbon Dioxide 21 L BUN 29 H Creatinine Glucose 131 H POC Glucose 122 H Lactic Acid Calcium 7.3 L AST Alkaline Phosphatase Ammonia Total Creatine Kinase Total Protein Albumin Urine WBC (Auto) Urine Creatinine Hepatitis C Antibody 10/17/18 10/17/18 10/18/18 07:34 11:22 09:21 WBC 19.6 H RBC 2.80 L Hgb 9.5 L Hct 27.4 L MCV 98 H MCH 34 H MCHC 35 H Plt Count Lymph % (Auto) Lymph # Seg Neutrophils % Seg Neuts % (Manual) Lymphocytes % (Manual) Monocytes % (Manual) Nucleated RBC % Seg Neutrophils # Seg Neutrophils # Man Lymphocytes # (Manual) Monocytes # (Manual) Sodium Potassium Chloride Carbon Dioxide BUN Creatinine Glucose POC Glucose 137 H 151 H Lactic Acid Calcium AST Alkaline Phosphatase Ammonia Total Creatine Kinase Total Protein Albumin Urine WBC (Auto) Urine Creatinine Hepatitis C Antibody 10/18/18 09:21 WBC RBC Hgb Hct MCV MCH MCHC Plt Count Lymph % (Auto) Lymph # Seg Neutrophils % Seg Neuts % (Manual) Lymphocytes % (Manual) Monocytes % (Manual) Nucleated RBC % Seg Neutrophils # Seg Neutrophils # Man Lymphocytes # (Manual) Monocytes # (Manual) Sodium Potassium 2.8 L* Chloride Carbon Dioxide 18 L BUN 25 H Creatinine Glucose 113 H POC Glucose Lactic Acid Calcium 7.7 L AST Alkaline Phosphatase Ammonia Total Creatine Kinase Total Protein Albumin Urine WBC (Auto) Urine Creatinine Hepatitis C Antibody Chest x-ray: image reviewed (KUB- large bowel gaseous distension) Allied health notes reviewed: nursing
[2018-10-18] MEDS ORDERED: K-DUR PO ONE (11:00)
[2018-10-18] MEDS: KCL 40 MEQ in NACL 0.45% 500 ML IV SCH (11:06)
--- NOTE | 2018-10-18 11:45 | XRay Report ---
ABDOMEN 1 VIEW INDICATION / CLINICAL INFORMATION: Abdominal distention. COMPARISON: 10/14/18 FINDINGS: TUBES / LINES: Interval removal of esophagogastric tube. BOWEL GAS PATTERN: Moderate gaseous distention of large and small bowel in a pattern characteristic o f ileus. FREE AIR / EXTRALUMINAL GAS: None seen. ADDITIONAL FINDINGS: Bilateral iliac arterial stents are unchanged. IMPRESSION: 1. Moderate gaseous distention of bowel likely representing ileus. Signer Name: Jonny Schwartz MD Signed: 10/18/2018 11:41 AM Workstation Name: [id number]
[2018-10-18 12:52] LABS: Basophils % (Manual) 0 % (0.0-1.8); Eosinophils % (Manual) 0 % (0.0-4.3); Total Cells Counted 100
[2018-10-18 12:53] LABS: Anisocytosis Few; Hypochromasia Few; Ovalocytes Few; Platelet Estimate Consistent w Auto
--- NOTE | 2018-10-18 15:59 | Progress Note ---
Assessment and Plan Acute kidney injury, likely ischemic ATN, baseline Cr was normal Hyperkalemia secondary to ARF and lisinopril now hypokalemic AG metabolic acidosis secondary to ARF and lactic acidosis Urospesis Metabolic encephalopathy - Cr trending down. - Received 1 HD treatment on 10/13/18 due to Hyperkalemia and severe renal failure - Vascath was ordered to be removed - Replace K PRN - Urine eosinophils- none seen - Renal ultrasound-no acute findings. No Hydronephrosis. - Strict I&O monitoring - Obtain daily weights - Renally dose medications - Avoid nephrotoxic agents - Continue to monitor renal function Renal Parameters improved. Will sign off at this time. Subjective Date of service: 10/18/18 Principal diagnosis: Severe Sepsis; Ac encephalopathy; JENNIFER; Hyperkalemia; SBO; Rhabdomyolysis Interval history: Making urine. Objective - Exam Narrative Exam: General appearance: well-developed, appears stated age, fatigue EENT: ATNC, PERRL, hearing intact, vision intact Neck: no JVD, supple Respiratory: Present: Decreased Breath Sounds Cardiology: S1S2 Gastrointestinal: normoactive bowel sounds Integumentary: warm and dry Neurologic: other (Has Dementia. Awake and alert. Not oriented to place or time.) Musculoskeletal: other (No edema) - Vital Signs Vital signs: Vital Signs - 12hr 10/18/18 10/18/18 10/18/18 07:36 08:09 10:00 Temperature 98.8 F Pulse Rate 114 H 110 H Pulse Rate [ 110 H From Monitor] Respiratory 18 18 Rate Blood Pressure 126/90 O2 Sat by Pulse 96 95 95 Oximetry 10/18/18 13:21 Temperature 98.7 F Pulse Rate 113 H Pulse Rate [ From Monitor] Respiratory 18 Rate Blood Pressure 168/77 O2 Sat by Pulse 97 Oximetry - Lab 10/18/18 09:21 10/18/18 09:21 Most recent lab results Calcium 7.7 mg/dL (8.4-10.2) L 10/18/18 09:21 Phosphorus 3.10 mg/dL (2.5-4.5) 10/18/18 09:21 Magnesium 2.30 mg/dL (1.7-2.3) 10/18/18 09:21 103.2 mg/dL (0.1-20.0) H 10/15/18 12:27 Medications & Allergies - Medications Allergies/Adverse Reactions: Allergies Sulfa (Sulfonamide Antibiotics) Allergy (Verified 05/09/18 17:10) Rash Home Medications: Home Medications Medication Instructions Recorded Confirmed Last Taken Type amLODIPine [Norvasc] 10 mg PO DAILY 02/21/18 10/13/18 10/12/18 History Lisinopril [Zestril] 10 mg PO DAILY 05/10/18 10/13/18 10/12/18 History Pantoprazole [Protonix TAB] 40 mg PO BID #60 tablet 05/14/18 10/13/18 10/12/18 Rx traMADol [Ultram 50 MG tab] 50 mg PO Q8H PRN #20 tablet 05/24/18 10/13/18 10/12/18 Rx Amitriptyline [Elavil] 25 mg PO QHS 10/13/18 10/13/18 10/12/18 History Bimatoprost [Lumigan 0.01%] 1 drop OP QPM 10/13/18 10/13/18 10/12/18 History Clopidogrel [Plavix] 75 mg PO QDAY 10/13/18 10/13/18 10/12/18 History Cyclobenzaprine [Flexeril 10 MG 10 mg PO BID 10/13/18 10/13/18 10/12/18 History TAB] Gabapentin [Neurontin] 600 mg PO Q8H 10/13/18 10/13/18 10/12/18 History metFORMIN [Glucophage] 500 mg PO QDAY 10/13/18 10/13/18 10/12/18 History Active Medications: Generic Name Dose Route Start Last Admin Trade Name Yohanq PRN Reason Stop Dose Admin Acetaminophen 650 mg 10/13/18 19:41 10/17/18 21:45 Tylenol PO 650 mg Q4H PRN Administration Pain MILD(1-3)/Fever >100.5/BURTON Albuterol 2.5 mg 10/14/18 10:38 Proventil IH Q4HRT PRN Shortness Of Breath Albuterol/Ipratropium 1 ampul 10/14/18 14:00 10/18/18 13:10 Duoneb *Not For Prn Use* IH Not Given TIDRT LUDA Bisacodyl 10 mg 10/14/18 16:00 10/18/18 09:29 Dulcolax HI 10 mg QDAY LUDA Administration Cephalexin 500 mg 10/16/18 22:00 10/18/18 09:29 Keflex PO 10/19/18 23:59 500 mg Q12HR LUDA Administration Diphenhydramine HCl 25 mg 10/17/18 22:35 10/17/18 23:20 Benadryl PO 25 mg QHS PRN Administration Sleep Docusate Sodium 100 mg 10/15/18 22:00 10/18/18 09:29 Colace PO 100 mg BID LUDA Administration Hydralazine HCl 10 mg 10/17/18 22:35 10/17/18 23:20 Apresoline IV 10 mg Q4H PRN Administration Hypertension Hydromorphone HCl 0.5 mg 10/14/18 12:23 10/18/18 00:03 Dilaudid IV 0.5 mg Q3H PRN Administration Pain , Severe (7-10) Sodium Chloride 100 mls @ 999 mls/hr 10/13/18 16:23 Nacl 0.9% IV STEVE PRN Hypotension Sodium Chloride 1,000 mls @ 75 mls/hr 10/15/18 16:00 10/17/18 13:22 Nacl 0.9% 1000 Ml IV 75 mls/hr DIRECT LUDA Administration Potassium Chloride 40 meq/ 520 mls @ 125 mls/hr 10/18/18 10:45 10/18/18 11:06 Sodium Chloride IV 10/20/18 14:55 125 mls/hr DIRECT LUDA Administration Insulin Human Lispro 0 unit 10/15/18 16:30 10/18/18 12:02 Humalog SUB-Q Not Given ACHS LUDA Protocol Melatonin 5 mg 10/18/18 22:00 Melatonin PO QHS PRN Sleep Metoclopramide HCl 10 mg 10/13/18 19:41 Reglan IV Q6H PRN Nausea And Vomiting Nicotine 14 mg 10/14/18 10:00 10/18/18 09:30 Habitrol TD 14 mg QDAY LUDA Administration Ondansetron HCl 4 mg 10/13/18 19:41 10/15/18 03:58 Zofran IV 4 mg Q3H PRN Administration Nausea And Vomiting Pantoprazole Sodium 40 mg 10/16/18 22:00 10/18/18 09:29 Protonix PO 40 mg BID LUDA Administration Polyethylene Glycol 17 gm 10/15/18 13:00 10/18/18 09:29 Miralax 3350 PO 17 gm QDAY LUDA Administration Sodium Chloride 10 ml 10/13/18 22:00 10/18/18 09:30 Sodium Chloride Flush Syringe 10 Ml IV 10 ml BID LUDA Administration Sodium Chloride 10 ml 10/13/18 19:41 Sodium Chloride Flush Syringe 10 Ml IV PRN PRN LINE FLUSH Sucralfate 1 gm 10/15/18 16:30 10/18/18 11:00 Carafate PO 1 gm ACHS LUDA Administration
[2018-10-18] MEDS: NACL 0.9% 1000 ML 1,000 ML IV SCH (17:09)
[2018-10-18] MEDS ORDERED: MELATONIN PO PRN (22:00)
--- NOTE | 2018-10-19 00:06 | Progress Note ---
Assessment and Plan Assessment and plan: 67 year old woman who presented to the hospital complaining of altered mental status, abdominal pain and low blood pressure was [place] in the ER. She was confused upon arrival what is oriented to person and place but not the time. Past medical history includes CVA diabetes hypertension COPD and chronic kidney disease Cxr No significant abnormalities Axr Neg CT abdomen and pelvis shows a few mildly dilated loops of proximal small bowel and Trace ascites CT head shows no acute abnormality Renal ultrasound shows no acute sonographic animality of the kidneys Repeat chest x-ray and abdominal x-ray shows only mild fecal retention Sepsis; cont sepsis protocol Acute on chronic kidney disease , improved with IV fluids, nephrology seeing patient UTI , continue antibiotics, urine culture growing E coli sens to Keflex, cont keflex to complete 7 days acute hyperkalemia, has been medically treated, received HD, now resolved, Vas cath removed on 10/17 hypokalemia, mg is normal, repleted IV, recheck in am partial bowel obstruction , ADAT per GS, doing well, resolving acute toxic metabolic encephalopathy; improving Rhabdomyolysis, continue IV fluids Hepatitis C antibody positive, previously positive in 2014, fup viral load Hallucations now resolved, Mental health consult appreciated, geripsych consult appreciated dvt ppx; lovenox Dispo; PT note reviewed, to SNF History Interval history: no fevers patient is no longer confuse altered no vomiting, no diarrhea Hospitalist Physical - Physical exam Narrative exam: General appearance: Present: no acute distress, other (confused) - EENT Eyes: Present: PERRL - Neck Neck: Present: supple - Respiratory Respiratory: bilateral: CTA - Cardiovascular Rhythm: regular Heart Sounds: Present: S1 & S2 - Extremities Extremities: no ischemia - Abdominal General gastrointestinal: soft, non-tender - Integumentary Integumentary: Present: clear, warm, dry - Psychiatric Psychiatric: calm and cooperative, intact judgment & insight - Neurologic Neurologic: CNII-XII intact, no focal deficits - Constitutional Vitals: Temp Pulse Resp BP Pulse Ox 98.9 F 119 H 22 186/74 93 10/18/18 19:54 10/18/18 20:33 10/18/18 20:33 10/18/18 19:54 10/18/18 20:36 General appearance: Present: other (confused) Results - Labs CBC & Chem 7: 10/18/18 09:21 10/18/18 09:21 Labs: Laboratory Last Values WBC 19.6 K/mm3 (4.5-11.0) H 10/18/18 09:21 RBC 2.80 M/mm3 (3.65-5.03) L 10/18/18 09:21 Hgb 9.5 gm/dl (10.1-14.3) L 10/18/18 09:21 Hct 27.4 % (30.3-42.9) L 10/18/18 09:21 MCV 98 fl (79-97) H 10/18/18 09:21 MCH 34 pg (28-32) H 10/18/18 09:21 MCHC 35 % (30-34) H 10/18/18 09:21 RDW 14.1 % (13.2-15.2) 10/18/18 09:21 Plt Count 184 K/mm3 (140-440) 10/18/18 09:21 Lymph % (Auto) 6.4 % (13.4-35.0) L 10/14/18 04:36 [place] % (Auto) 4.4 % (0.0-7.3) 10/14/18 04:36 Eos % (Auto) 0.4 % (0.0-4.3) 10/14/18 04:36 Baso % (Auto) 0.4 % (0.0-1.8) 10/14/18 04:36 Lymph # 1.1 K/mm3 (1.2-5.4) L 10/14/18 04:36 [place] # 0.7 K/mm3 (0.0-0.8) 10/14/18 04:36 Eos # 0.1 K/mm3 (0.0-0.4) 10/14/18 04:36 Baso # 0.1 K/mm3 (0.0-0.1) 10/14/18 04:36 Add Manual Diff Complete 10/18/18 09:21 Total Counted 100 10/18/18 09:21 Seg Neutrophils % Livestock Nutritionist 10/18/18 09:21 Seg Neuts % (Manual) 79.0 % (40.0-70.0) H 10/18/18 09:21 5.0 % 10/18/18 09:21 9.0 % (13.4-35.0) L 10/18/18 09:21 Reactive Lymphs % (Man) 0 % 10/18/18 09:21 7.0 % (0.0-7.3) 10/18/18 09:21 0 % (0.0-4.3) 10/18/18 09:21 0 % (0.0-1.8) 10/18/18 09:21 0 % 10/18/18 09:21 0 % 10/18/18 09:21 0 % 10/18/18 09:21 0 % 10/18/18 09:21 Nucleated RBC % Not Reportable 10/18/18 09:21 Seg Neutrophils # 14.6 K/mm3 (1.8-7.7) H 10/14/18 04:36 Seg Neutrophils # Man 15.5 K/mm3 (1.8-7.7) H 10/18/18 09:21 Band Neutrophils # 1.0 K/mm3 10/18/18 09:21 1.8 K/mm3 (1.2-5.4) 10/18/18 09:21 Abs React Lymphs (Man) 0.0 K/mm3 10/18/18 09:21 1.4 K/mm3 (0.0-0.8) H 10/18/18 09:21 0.0 K/mm3 (0.0-0.4) 10/18/18 09:21 0.0 K/mm3 (0.0-0.1) 10/18/18 09:21 0.0 K/mm3 10/18/18 09:21 0.0 K/mm3 10/18/18 09:21 0.0 K/mm3 10/18/18 09:21 Blast Cells # 0.0 K/mm3 10/18/18 09:21 WBC Morphology Not Reportable 10/18/18 09:21 Hypersegmented Neuts Not Reportable 10/18/18 09:21 Hyposegmented Neuts Not Reportable 10/18/18 09:21 Hypogranular Neuts Not Reportable 10/18/18 09:21 Not Reportable 10/18/18 09:21 Not Reportable 10/18/18 09:21 Not Reportable 10/18/18 09:21 Not Reportable 10/18/18 09:21 Not Reportable 10/18/18 09:21 Not Reportable 10/18/18 09:21 Consistent w auto 10/18/18 09:21 Not Reportable 10/18/18 09:21 Plt Clumps, EDTA Not Reportable 10/18/18 09:21 Not Reportable 10/18/18 09:21 Not Reportable 10/18/18 09:21 Not Reportable 10/18/18 09:21 Plt Morphology Comment Not Reportable 10/18/18 09:21 RBC Morphology Not Reportable 10/18/18 09:21 Dimorphic RBCs Not Reportable 10/18/18 09:21 Not Reportable 10/18/18 09:21 Few 10/18/18 09:21 Not Reportable 10/18/18 09:21 Few 10/18/18 09:21 Not Reportable 10/18/18 09:21 Not Reportable 10/18/18 09:21 Not Reportable 10/18/18 09:21 Not Reportable 10/18/18 09:21 Not Reportable 10/18/18 09:21 Not Reportable 10/18/18 09:21 Not Reportable 10/18/18 09:21 Few 10/18/18 09:21 Not Reportable 10/18/18 09:21 Not Reportable 10/18/18 09:21 Not Reportable 10/18/18 09:21 Not Reportable 10/18/18 09:21 Not Reportable 10/18/18 09:21 Not Reportable 10/18/18 09:21 Not Reportable 10/18/18 09:21 Acanthocytes (Spur) Not Reportable 10/18/18 09:21 Rouleaux Not Reportable 10/18/18 09:21 Not Reportable 10/18/18 09:21 Not Reportable 10/18/18 09:21 Not Reportable 10/18/18 09:21 Not Reportable 10/18/18 09:21 Hem Pathologist Commnt No 10/18/18 09:21 APTT 30.9 Sec. (24.2-36.6) 10/13/18 09:17 Sodium 137 mmol/L (137-145) 10/18/18 09:21 Potassium 2.8 mmol/L (3.6-5.0) L* 10/18/18 09:21 Chloride 102.0 mmol/L (98-107) 10/18/18 09:21 Carbon Dioxide 18 mmol/L (22-30) L 10/18/18 09:21 20 mmol/L 10/18/18 09:21 BUN 25 mg/dL (7-17) H 10/18/18 09:21 1.0 mg/dL (0.7-1.2) 10/18/18 09:21 Estimated GFR 55 ml/min 10/18/18 09:21 25 % 10/18/18 09:21 Glucose 113 mg/dL (65-100) H 10/18/18 09:21 POC Glucose 116 (70-105) H 10/18/18 21:29 5.5 % (4-6) 10/13/18 09:17 Lactic Acid 3.30 mmol/L (0.7-2.0) H* 10/14/18 11:23 Calcium 7.7 mg/dL (8.4-10.2) L 10/18/18 09:21 Phosphorus 3.10 mg/dL (2.5-4.5) 10/18/18 09:21 Magnesium 2.30 mg/dL (1.7-2.3) 10/18/18 09:21 0.20 mg/dL (0.1-1.2) 10/13/18 11:09 AST 73 units/L (5-40) H 10/13/18 11:09 ALT 18 units/L (7-56) 10/13/18 11:09 268 units/L (35-129) H 10/13/18 11:09 72.0 umol/L (25-60) H 10/13/18 09:17 1061 units/L (30-135) H 10/15/18 12:22 0.029 ng/mL (0.00-0.029) 10/13/18 09:17 6.0 g/dL (6.3-8.2) L 10/13/18 11:09 3.0 g/dL (3.9-5) L 10/13/18 11:09 1.0 % 10/13/18 11:09 17 units/L (13-60) 10/13/18 09:17 TSH 2.920 mlU/mL (0.270-4.200) 10/13/18 09:17 [place] (Yellow) 10/15/18 12:27 Slightly-cloudy (Clear) 10/15/18 12:27 6.0 (5.0-7.0) 10/15/18 12:27 Ur Specific [place] 1.020 (1.003-1.030) 10/15/18 12:27 100 mg/dl mg/dL (Negative) 10/15/18 12:27 Neg mg/dL (Negative) 10/15/18 12:27 Tr mg/dL (Negative) 10/15/18 12:27 Mod (Negative) 10/15/18 12:27 Neg (Negative) 10/15/18 12:27 Neg (Negative) 10/15/18 12:27 < 2.0 mg/dL (<2.0) 10/15/18 12:27 Ur Leukocyte Esterase Neg (Negative) 10/15/18 12:27 9.0 /HPF (0.0-6.0) H 10/15/18 12:27 2.0 /HPF (0.0-6.0) 10/15/18 12:27 U Epithel Cells (Auto) 3.0 /HPF (0-13.0) 10/15/18 12:27 2+ /HPF (Negative) 10/13/18 08:32 3+ /HPF 10/13/18 08:32 Few /HPF 10/15/18 12:27 None seen (None Seen) 10/15/18 12:27 103.2 mg/dL (0.1-20.0) H 10/15/18 12:27 Hepatitis A IgM Ab Non-reactive (NonReactive) 10/13/18 18:08 Hep Bs Antigen Non-reactive (Negative) 10/13/18 18:08 Hep B Core IgM Ab Non-reactive (NonReactive) 10/13/18 18:08 Reactive (NonReactive) A 10/13/18 18:08 Active Medications - Current Medications Current Medications: Generic Name Dose Route Start Last Admin Trade Name Freq PRN Reason Stop Dose Admin Acetaminophen 650 mg 10/13/18 19:41 10/17/18 21:45 Tylenol PO 650 mg Q4H PRN Administration Pain MILD(1-3)/Fever >100.5/[place] Albuterol 2.5 mg 10/14/18 10:38 Proventil IH Q4HRT PRN Shortness Of Breath Albuterol/Ipratropium 1 ampul 10/14/18 14:00 10/18/18 20:33 Duoneb *Not For Prn Use* IH 1 ampul TIDRT LUDA Administration Bisacodyl 10 mg 10/14/18 16:00 10/18/18 09:29 Dulcolax ME 10 mg QDAY LUDA Administration Cephalexin 500 mg 10/16/18 22:00 10/18/18 21:12 Keflex PO 10/19/18 23:59 500 mg Q12HR LUDA Administration Diphenhydramine HCl 25 mg 10/17/18 22:35 10/17/18 23:20 Benadryl PO 25 mg QHS PRN Administration Sleep Docusate Sodium 100 mg 10/15/18 22:00 10/18/18 21:13 Colace PO 100 mg BID LUDA Administration Hydralazine HCl 10 mg 10/17/18 22:35 10/17/18 23:20 Apresoline IV 10 mg Q4H PRN Administration Hypertension Hydromorphone HCl 0.5 mg 10/14/18 12:23 10/18/18 21:13 Dilaudid IV 0.5 mg Q3H PRN Administration Pain , Severe (7-10) Sodium Chloride 100 mls @ 999 mls/hr 10/13/18 16:23 Nacl 0.9% IV STEVE PRN Hypotension Sodium Chloride 1,000 mls @ 75 mls/hr 10/15/18 16:00 10/18/18 17:09 Nacl 0.9% 1000 Ml IV 75 mls/hr DIRECT LUDA Administration Potassium Chloride 40 meq/ 520 mls @ 125 mls/hr 10/18/18 10:45 10/18/18 11:06 Sodium Chloride IV 10/20/18 14:55 125 mls/hr DIRECT LUDA Administration Insulin Human Lispro 0 unit 10/15/18 16:30 10/18/18 21:25 Humalog SUB-Q Not Given ACHS LUDA Protocol Melatonin 5 mg 10/18/18 22:00 Melatonin PO QHS PRN Sleep Metoclopramide HCl 10 mg 10/13/18 19:41 Reglan IV Q6H PRN Nausea And Vomiting Nicotine 14 mg 10/14/18 10:00 10/18/18 09:30 Habitrol TD 14 mg QDAY LUDA Administration Ondansetron HCl 4 mg 10/13/18 19:41 10/15/18 03:58 Zofran IV 4 mg Q3H PRN Administration Nausea And Vomiting Pantoprazole Sodium 40 mg 10/16/18 22:00 10/18/18 21:12 Protonix PO 40 mg BID LUDA Administration Polyethylene Glycol 17 gm 10/15/18 13:00 10/18/18 09:29 Miralax 3350 PO 17 gm QDAY LUDA Administration Sodium Chloride 10 ml 10/13/18 22:00 10/18/18 21:14 Sodium Chloride Flush Syringe 10 Ml IV 10 ml BID LUDA Administration Sodium Chloride 10 ml 10/13/18 19:41 Sodium Chloride Flush Syringe 10 Ml IV PRN PRN LINE FLUSH Sucralfate 1 gm 10/15/18 16:30 10/18/18 21:13 Carafate PO 1 gm ACHS LUDA Administration Nutrition/Malnutrition Assess - Dietary Evaluation Nutrition/Malnutrition Findings: Nutrition Notes Start: 10/14/18 11:37 Freq: Status: Active Protocol: Document 10/16/18 16:28 RM (Rec: 10/16/18 16:35 RM [id number]) Nutrition Notes Initial or Follow up Reassessment Current Diagnosis CKD(stage I-IV),COPD,Diabetes, Sepsis,Hypertension,Stroke Other Pertinent Diagnosis UTI, Acute Encephalopathy, Hep C, Partial SBO Current Diet GI soft Labs/Tests Reviewed Pertinent Medications Zofran Height 5 ft 2 in Weight 61.9 kg [place] Body Weight (kg) 50.00 BMI 25.0 Subjective/Other Information Pt moved from ICU to [place] [place]. Pt stated that her appetite is poor d/t her being uncomfortable and abdominal pain. Stated that she has not eaten her first meal yet. Declined ONS for now d/t wanting to try to eat. Percent of energy/protein needs met: 0%/0% Burn Absent Trauma Absent #1 Nutrition Diagnosis Inadequate oral intake Diagnosis Progress(for reassessment Continues documentation) Is patient on ventilator? No Is Patient Ambulatory and/or Out of Bed Yes REE-([facility]-ambulatory/OOB) [ [id number] [id number]] Calculation Used for Recommendations [facility] Additional Notes Protein needs: 50-62g(0.8-1g/ kg) Fluid needs: 1ml/kcal Nutrition Intervention Change Diet Order: Continue current Goal #1 Meet at least 75% of calorie and protein needs via PO intakes Anticipated Discharge Needs: Unable to determine at this time Follow-Up By: 10/20/18 Additional Comments Follow for PO intakes
[2018-10-19] MEDS: DILAUDID IV PRN ×3 (01:15→19:49)
[2018-10-19] MEDS: BENADRYL PO PRN (01:16)
[2018-10-19 05:51] LABS: Hematocrit 30.9 % (30.3-42.9); Mean Corpuscular HGB Conc 32 % (30-34); Mean Corpuscular Volume 102 fl (79-97); Platelet Count 230 K/mm3 (140-440); Red Blood Count 3.05 M/mm3 (3.65-5.03); Red Cell Distribution Width 14.6 % (13.2-15.2)
[2018-10-19 06:12] LABS: BUN/Creatinine Ratio 24; Blood Urea Nitrogen 22 mg/dL (7-17); Calcium 7.5 mg/dL (8.4-10.2); Hemolysis Index 10
[2018-10-19 06:46] LABS: Basophils % (Manual) 0 % (0.0-1.8); Eosinophils % (Manual) 0 % (0.0-4.3); Total Cells Counted 100
[2018-10-19 06:48] LABS: Platelet Estimate Consistent w Auto; RBC Morphology Normal
[2018-10-19] MEDS: NACL 0.9% 1000 ML 1,000 ML IV SCH (07:23)
[2018-10-19] MEDS: HumaLOG SUB-Q SCH ×4 (08:24→22:43)
[2018-10-19] MEDS: CARAFATE PO SCH ×4 (08:24→22:42)
[2018-10-19] MEDS: APRESOLINE IV PRN ×2 (08:24→13:59)
[2018-10-19] MEDS: SODIUM CHLORIDE FLUSH SYRINGE 10 ML IV PRN ×2 (08:25→14:04)
--- NOTE | 2018-10-19 08:35 | XRay Report ---
ABDOMEN 1 VIEW INDICATION / CLINICAL INFORMATION: abdominal pain and distension. COMPARISON: 10/18/18 FINDINGS: TUBES / LINES: None. BOWEL GAS PATTERN: Moderate gaseous distention of large and small bowel, unchanged. FREE AIR / EXTRALUMINAL GAS: None seen. ADDITIONAL FINDINGS: Bilateral iliac arterial stents, unchanged. IMPRESSION: 1. No change. Signer Name: Jonny Schwartz MD Signed: 10/19/2018 8:31 AM Workstation Name: [id number]
[2018-10-19] MEDS: DUONEB *Not for PRN Use IH SCH ×3 (08:53→20:04)
[2018-10-19] MEDS: PROTONIX PO SCH ×2 (09:56→22:43)
[2018-10-19] MEDS: KEFLEX PO SCH ×2 (09:56→22:42)
[2018-10-19] MEDS: HABITROL TD SCH (09:56)
[2018-10-19] MEDS: DULCOLAX PR SCH (09:56)
[2018-10-19] MEDS: COLACE PO SCH ×2 (09:57→22:42)
[2018-10-19] MEDS: SODIUM CHLORIDE FLUSH SYRINGE 10 ML IV SCH ×2 (09:57→22:44)
[2018-10-19] MEDS: MIRALAX 3350 PO SCH (09:57)
--- NOTE | 2018-10-19 12:43 | Progress Note ---
Assessment and Plan Sepsis- improved Acute encephalopathy-improved Acute kidney injury secondary to ATN, improved Hyperkalemia severe, resolved Small bowel obstruction Rhabdomyolysis- resolved Leukocytosis with abdominal distension - prn antiemetics - bowel regimen - wean suppplemental oxygen to for O2 sats >90% - supportive transfusions as needed to keep HgB >7g/dL - continue VTE prophylaxis ( SCDs) - continue PPI therapy - continue bronchodilators with pulmonary hygiene per RT - continue mobility protocol - PT/OT as tolerated - continue close monitoring of renal function and hemodynamics - continue accuchecks with glycemic control per SSI for target blood glucose 140-180mg/dL Discussed with hospitalist service re abdominal distension. CT scan of the abdomen and pelvis with oral contrast may help with evaluation. Start empiric flagyl for possible colitis Subjective Date of service: 10/19/18 Principal diagnosis: Severe Sepsis; Ac encephalopathy; JENNIFER; Hyperkalemia; SBO; Rhabdomyolysis Interval history: Patient is seen today for: Severe Sepsis; Acute encephalopathy; Acute kidney injury; Hyperkalemia severe; Small bowel obstruction; Abdominal Pain; Rhabdomyolysis Seen and examined at bedside; 24hour events reviewed; nursing and respiratory care staff consulted; no adverse overnight events reported to me; resting peacefully in bed; remains on supplemental oxygen; denies acute chest pains or palpitations; No N/V/F/C; + abdominal discomfort with distension appears worse today. "I can't eat" Objective Vital Signs - 12hr 10/19/18 10/19/18 10/19/18 03:02 07:41 08:24 Temperature 99.4 F 98.0 F Pulse Rate 113 H 119 H 119 H Pulse Rate [ Anterior Bilateral Throughout] Pulse Rate [ From Monitor] Respiratory 18 20 Rate Respiratory Rate [Anterior Bilateral Throughout] Blood Pressure 176/76 182/83 182/83 O2 Sat by Pulse 96 95 Oximetry 10/19/18 10/19/18 10/19/18 08:54 09:12 09:56 Temperature Pulse Rate Pulse Rate [ 124 H Anterior Bilateral Throughout] Pulse Rate [ From Monitor] Respiratory Rate Respiratory 22 Rate [Anterior Bilateral Throughout] Blood Pressure 159/66 O2 Sat by Pulse 91 Oximetry 10/19/18 10:00 Temperature Pulse Rate 111 H Pulse Rate [ Anterior Bilateral Throughout] Pulse Rate [ 111 H From Monitor] Respiratory 22 Rate Respiratory Rate [Anterior Bilateral Throughout] Blood Pressure O2 Sat by Pulse 95 Oximetry Constitutional: alert, appears uncomfortable, other Eyes: non-icteric ENT: oropharynx moist, other (mallampati 3) Neck: supple, no lymphadenopathy, no JVD Effort: normal Ascultation: Bilateral: diminished breath sounds, rhonchi (scant) Percussion: Bilateral: not dull Cardiovascular: regular rate and rhythm Gastrointestinal: normoactive bowel sounds, tender (mildly all quadrants), other (distende, tympanitic on percussion) Integumentary: normal Extremities: no cyanosis, no edema, pink and warm, pulses normal Neurologic: normal mental status, non-focal exam (grossly), pupils equal and round, CN II-XII normal, motor strength normal and Psychiatric: mood appropriate, affect normal CBC and BMP: 10/19/18 05:13 10/19/18 05:13 Abnormal lab findings: Abnormal Labs 10/13/18 10/13/18 10/13/18 08:32 08:36 09:17 WBC 31.8 H RBC Hgb Hct 44.2 H MCV 102 H MCH 33 H MCHC Plt Count Lymph % (Auto) Lymph # Seg Neutrophils % Seg Neuts % (Manual) 83.0 H Lymphocytes % (Manual) 3.0 L Monocytes % (Manual) 10.0 H Nucleated RBC % Seg Neutrophils # Seg Neutrophils # Man 26.4 H Lymphocytes # (Manual) 1.0 L Monocytes # (Manual) 3.2 H Sodium Potassium Chloride Carbon Dioxide BUN Creatinine Glucose POC Glucose 281 H Lactic Acid Calcium AST Alkaline Phosphatase Ammonia Total Creatine Kinase Total Protein Albumin Urine WBC (Auto) > 182.0 H Urine Creatinine Hepatitis C Antibody 10/13/18 10/13/18 10/13/18 09:17 09:17 11:09 WBC RBC Hgb Hct MCV MCH MCHC Plt Count Lymph % (Auto) Lymph # Seg Neutrophils % Seg Neuts % (Manual) Lymphocytes % (Manual) Monocytes % (Manual) Nucleated RBC % Seg Neutrophils # Seg Neutrophils # Man Lymphocytes # (Manual) Monocytes # (Manual) Sodium Potassium 8.7 H* Chloride Carbon Dioxide 8 L* BUN 31 H Creatinine 3.2 H Glucose 264 H POC Glucose Lactic Acid 4.90 H* Calcium AST 67 H Alkaline Phosphatase 268 H Ammonia 72.0 H Total Creatine Kinase Total Protein Albumin 3.2 L Urine WBC (Auto) Urine Creatinine Hepatitis C Antibody 08/07/2710/13/18 10/13/18 11:09 11:47 12:20 WBC RBC Hgb Hct MCV MCH MCHC Plt Count Lymph % (Auto) Lymph # Seg Neutrophils % Seg Neuts % (Manual) Lymphocytes % (Manual) Monocytes % (Manual) Nucleated RBC % Seg Neutrophils # Seg Neutrophils # Man Lymphocytes # (Manual) Monocytes # (Manual) Sodium Potassium 8.1 H* Chloride 111.0 H Carbon Dioxide 12 L BUN 31 H Creatinine 2.9 H Glucose 225 H POC Glucose 225 H Lactic Acid 5.20 H* Calcium AST 73 H Alkaline Phosphatase 268 H Ammonia Total Creatine Kinase Total Protein 6.0 L Albumin 3.0 L Urine WBC (Auto) Urine Creatinine Hepatitis C Antibody 10/13/18 10/13/18 10/13/18 12:30 12:30 18:08 WBC RBC Hgb Hct MCV MCH MCHC Plt Count Lymph % (Auto) Lymph # Seg Neutrophils % Seg Neuts % (Manual) Lymphocytes % (Manual) Monocytes % (Manual) Nucleated RBC % Seg Neutrophils # Seg Neutrophils # Man Lymphocytes # (Manual) Monocytes # (Manual) Sodium Potassium 8.1 H* Chloride 107.8 H Carbon Dioxide 11 L BUN 32 H Creatinine 2.9 H Glucose 329 H POC Glucose Lactic Acid Calcium AST Alkaline Phosphatase Ammonia Total Creatine Kinase 5299 H Total Protein Albumin Urine WBC (Auto) Urine Creatinine Hepatitis C Antibody Reactive A 10/14/18 10/14/18 10/14/18 04:36 04:36 05:35 WBC 16.5 H RBC 3.51 L Hgb Hct MCV 98 H MCH 34 H MCHC 35 H Plt Count Lymph % (Auto) 6.4 L Lymph # 1.1 L Seg Neutrophils % 88.4 H Seg Neuts % (Manual) Lymphocytes % (Manual) Monocytes % (Manual) Nucleated RBC % Seg Neutrophils # 14.6 H Seg Neutrophils # Man Lymphocytes # (Manual) Monocytes # (Manual) Sodium Potassium 5.1 H D Chloride Carbon Dioxide BUN 19 H Creatinine 1.5 H Glucose 155 H POC Glucose 142 H Lactic Acid Calcium 7.6 L AST Alkaline Phosphatase Ammonia Total Creatine Kinase Total Protein Albumin Urine WBC (Auto) Urine Creatinine Hepatitis C Antibody 10/14/18 10/14/18 10/14/18 11:23 11:23 11:42 WBC RBC Hgb Hct MCV MCH MCHC Plt Count Lymph % (Auto) Lymph # Seg Neutrophils % Seg Neuts % (Manual) Lymphocytes % (Manual) Monocytes % (Manual) Nucleated RBC % Seg Neutrophils # Seg Neutrophils # Man Lymphocytes # (Manual) Monocytes # (Manual) Sodium Potassium Chloride Carbon Dioxide BUN Creatinine Glucose POC Glucose 154 H Lactic Acid 3.30 H* Calcium AST Alkaline Phosphatase Ammonia Total Creatine Kinase 1935 H Total Protein Albumin Urine WBC (Auto) Urine Creatinine Hepatitis C Antibody 10/14/18 10/14/18 10/15/18 17:39 23:18 04:12 WBC RBC 3.22 L Hgb Hct MCV 99 H MCH 34 H MCHC Plt Count Lymph % (Auto) Lymph # Seg Neutrophils % Seg Neuts % (Manual) 83.0 H Lymphocytes % (Manual) 10.0 L Monocytes % (Manual) Nucleated RBC % Seg Neutrophils # Seg Neutrophils # Man Lymphocytes # (Manual) 0.9 L Monocytes # (Manual) Sodium Potassium Chloride Carbon Dioxide BUN Creatinine Glucose POC Glucose 171 H 176 H Lactic Acid Calcium AST Alkaline Phosphatase Ammonia Total Creatine Kinase Total Protein Albumin Urine WBC (Auto) Urine Creatinine Hepatitis C Antibody 10/15/18 10/15/18 10/15/18 04:12 05:29 12:16 WBC RBC Hgb Hct MCV MCH MCHC Plt Count Lymph % (Auto) Lymph # Seg Neutrophils % Seg Neuts % (Manual) Lymphocytes % (Manual) Monocytes % (Manual) Nucleated RBC % Seg Neutrophils # Seg Neutrophils # Man Lymphocytes # (Manual) Monocytes # (Manual) Sodium 147 H Potassium Chloride 107.9 H Carbon Dioxide BUN 31 H Creatinine 1.8 H Glucose 162 H POC Glucose 164 H 152 H Lactic Acid Calcium 7.6 L AST Alkaline Phosphatase Ammonia Total Creatine Kinase Total Protein Albumin Urine WBC (Auto) Urine Creatinine Hepatitis C Antibody 10/15/18 10/15/18 10/15/18 12:22 12:27 12:27 WBC RBC Hgb Hct MCV MCH MCHC Plt Count Lymph % (Auto) Lymph # Seg Neutrophils % Seg Neuts % (Manual) Lymphocytes % (Manual) Monocytes % (Manual) Nucleated RBC % Seg Neutrophils # Seg Neutrophils # Man Lymphocytes # (Manual) Monocytes # (Manual) Sodium Potassium Chloride Carbon Dioxide BUN Creatinine Glucose POC Glucose Lactic Acid Calcium AST Alkaline Phosphatase Ammonia Total Creatine Kinase 1061 H Total Protein Albumin Urine WBC (Auto) 9.0 H Urine Creatinine 103.2 H Hepatitis C Antibody 10/15/18 10/16/18 10/16/18 21:44 05:26 05:26 WBC RBC 2.80 L Hgb 9.5 L Hct 28.1 L MCV 100 H MCH 34 H MCHC Plt Count 138 L Lymph % (Auto) Lymph # Seg Neutrophils % Seg Neuts % (Manual) 90.0 H Lymphocytes % (Manual) 6.0 L Monocytes % (Manual) Nucleated RBC % 1.0 H Seg Neutrophils # Seg Neutrophils # Man Lymphocytes # (Manual) 0.5 L Monocytes # (Manual) Sodium Potassium Chloride Carbon Dioxide BUN 32 H Creatinine 1.5 H Glucose 139 H POC Glucose 182 H Lactic Acid Calcium 7.7 L AST Alkaline Phosphatase Ammonia Total Creatine Kinase Total Protein Albumin Urine WBC (Auto) Urine Creatinine Hepatitis C Antibody 10/16/18 10/16/18 10/16/18 07:09 11:21 16:46 WBC RBC Hgb Hct MCV MCH MCHC Plt Count Lymph % (Auto) Lymph # Seg Neutrophils % Seg Neuts % (Manual) Lymphocytes % (Manual) Monocytes % (Manual) Nucleated RBC % Seg Neutrophils # Seg Neutrophils # Man Lymphocytes # (Manual) Monocytes # (Manual) Sodium Potassium Chloride Carbon Dioxide BUN Creatinine Glucose POC Glucose 135 H 147 H 169 H Lactic Acid Calcium AST Alkaline Phosphatase Ammonia Total Creatine Kinase Total Protein Albumin Urine WBC (Auto) Urine Creatinine Hepatitis C Antibody 10/16/18 10/17/18 10/17/18 21:44 04:34 04:34 WBC RBC 2.91 L Hgb 9.8 L Hct 29.1 L MCV 100 H MCH 34 H MCHC Plt Count Lymph % (Auto) Lymph # Seg Neutrophils % Seg Neuts % (Manual) 82.0 H Lymphocytes % (Manual) 8.0 L Monocytes % (Manual) Nucleated RBC % 1.0 H Seg Neutrophils # Seg Neutrophils # Man 8.9 H Lymphocytes # (Manual) 0.9 L Monocytes # (Manual) Sodium Potassium 3.1 L Chloride Carbon Dioxide 21 L BUN 29 H Creatinine Glucose 131 H POC Glucose 122 H Lactic Acid Calcium 7.3 L AST Alkaline Phosphatase Ammonia Total Creatine Kinase Total Protein Albumin Urine WBC (Auto) Urine Creatinine Hepatitis C Antibody 10/17/18 10/17/18 10/18/18 07:34 11:22 09:21 WBC 19.6 H RBC 2.80 L Hgb 9.5 L Hct 27.4 L MCV 98 H MCH 34 H MCHC 35 H Plt Count Lymph % (Auto) Lymph # Seg Neutrophils % Seg Neuts % (Manual) 79.0 H Lymphocytes % (Manual) 9.0 L Monocytes % (Manual) Nucleated RBC % Seg Neutrophils # Seg Neutrophils # Man 15.5 H Lymphocytes # (Manual) Monocytes # (Manual) 1.4 H Sodium Potassium Chloride Carbon Dioxide BUN Creatinine Glucose POC Glucose 137 H 151 H Lactic Acid Calcium AST Alkaline Phosphatase Ammonia Total Creatine Kinase Total Protein Albumin Urine WBC (Auto) Urine Creatinine Hepatitis C Antibody 10/18/18 10/18/18 10/18/18 09:21 11:58 16:43 WBC RBC Hgb Hct MCV MCH MCHC Plt Count Lymph % (Auto) Lymph # Seg Neutrophils % Seg Neuts % (Manual) Lymphocytes % (Manual) Monocytes % (Manual) Nucleated RBC % Seg Neutrophils # Seg Neutrophils # Man Lymphocytes # (Manual) Monocytes # (Manual) Sodium Potassium 2.8 L* Chloride Carbon Dioxide 18 L BUN 25 H Creatinine Glucose 113 H POC Glucose 149 H 154 H Lactic Acid Calcium 7.7 L AST Alkaline Phosphatase Ammonia Total Creatine Kinase Total Protein Albumin Urine WBC (Auto) Urine Creatinine Hepatitis C Antibody 10/18/18 10/19/18 10/19/18 21:29 05:13 05:13 WBC 26.7 H RBC 3.05 L Hgb 10.0 L Hct MCV 102 H MCH 33 H MCHC Plt Count Lymph % (Auto) Lymph # Seg Neutrophils % Seg Neuts % (Manual) 88.0 H Lymphocytes % (Manual) 7.0 L Monocytes % (Manual) Nucleated RBC % Seg Neutrophils # Seg Neutrophils # Man 23.5 H Lymphocytes # (Manual) Monocytes # (Manual) 1.3 H Sodium Potassium Chloride 108.4 H Carbon Dioxide 19 L BUN 22 H Creatinine Glucose POC Glucose 116 H Lactic Acid Calcium 7.5 L AST Alkaline Phosphatase Ammonia Total Creatine Kinase Total Protein Albumin Urine WBC (Auto) Urine Creatinine Hepatitis C Antibody 10/19/18 11:24 WBC RBC Hgb Hct MCV MCH MCHC Plt Count Lymph % (Auto) Lymph # Seg Neutrophils % Seg Neuts % (Manual) Lymphocytes % (Manual) Monocytes % (Manual) Nucleated RBC % Seg Neutrophils # Seg Neutrophils # Man Lymphocytes # (Manual) Monocytes # (Manual) Sodium Potassium Chloride Carbon Dioxide BUN Creatinine Glucose POC Glucose 136 H Lactic Acid Calcium AST Alkaline Phosphatase Ammonia Total Creatine Kinase Total Protein Albumin Urine WBC (Auto) Urine Creatinine Hepatitis C Antibody Allied health notes reviewed: nursing
[2018-10-19] MEDS: KCL 40 MEQ in NACL 0.45% 500 ML IV SCH ×2 (13:16→19:49)
--- NOTE | 2018-10-19 14:59 | Cat Scan Report ---
CT ABDOMEN AND PELVIS WITH IV CONTRAST INDICATION: ileus, sbo. COMPARISON: CT 10/13/2018. TECHNIQUE: All CT scans at this facility use dose modulation, automated exposure control, iterative reconstructi on or weight based dosing, when appropriate, to reduce radiation dose to as low as reasonably achieva ble. FINDINGS: Lung Bases: Very small bilateral pleural effusions have developed with compressive atelectasis in the bases. Skeletal System: No acute abnormality. ABDOMEN: Liver: Normal. Gallbladder: Normal. Bile Ducts: Normal. Pancreas: Normal. Spleen: Normal. Adrenals: Hypodense bilateral adrenal lesions are again noted. Right Kidney: Punctate cysts. Left Kidney: Punctate cyst. Stomach and Bowel: Small bowel is diffusely fluid-filled. A few loops are mildly distended. Stomach i s mildly distended. Lymph Nodes: No significant adenopathy. Aorta: Advanced atherosclerotic calcification is again noted. Bilateral common iliac stents are noted . Additional Findings: There is trace ascites. PELVIS: Colon: There is relatively diffuse colonic distention, greatest at the cecum. Distended cecum measure s approximately 9.6 cm in greatest diameter (axial image 110). Air-fluid levels are noted within the distended colon Urinary Bladder and Distal Ureters: Normal. Appendix: Not visualized. Lymph Nodes: No significant adenopathy. Additional Findings: There is mild pelvic ascites, this has increased. IMPRESSION: 1. Diffuse distention of small and large bowel. This is greatest at the cecum which measures 9.6 cm in maximum diameter. The degree of distention has increased since the prior exam. I do not see a romeo sition point to suggest bowel obstruction. There may be colitis involving the distal colon. Given the degree of cecal distention, close follow-up is recommended. 2. Mild ascites has slightly increased. There are new very small pleural effusions. 3. Additional incidental findings as above. Signer Name: Gene Squires MD Signed: 10/19/2018 2:55 PM Workstation Name: [id number]
[2018-10-19] MEDS ORDERED: METRONIDAZOLE 250 MG/50 ML IV SCH (16:00)
--- NOTE | 2018-10-19 16:14 | Progress Note ---
Assessment and Plan Assessment and plan: 67 year old woman who presented to the hospital complaining of altered mental status, abdominal pain and low blood pressure was [facility] in the ER. She was confused upon arrival what is oriented to person and place but not the time. Past medical history includes CVA diabetes hypertension COPD and chronic kidney disease Cxr No significant abnormalities Axr Neg CT abdomen and pelvis shows a few mildly dilated loops of proximal small bowel and Trace ascites CT head shows no acute abnormality Renal ultrasound shows no acute sonographic animality of the kidneys Repeat chest x-ray and abdominal x-ray shows only mild fecal retention Sepsis; cont sepsis protocol Acute on chronic kidney disease , improved with IV fluids, nephrology seeing patient UTI , continue antibiotics, urine culture growing E coli sens to Keflex, cont keflex to complete 7 days acute hyperkalemia, has been medically treated, received HD, now resolved, Vas cath removed on 10/17 hypokalemia, mg is normal, repleted IV, recheck in am partial bowel obstruction , ADAT per GS, daily AXR, distension is getting worse, but having frequent BMs, dw GS- obtain cT a/p , place NGT to LIS and rectal tube acute toxic metabolic encephalopathy; improving Rhabdomyolysis, continue IV fluids Hepatitis C antibody positive, previously positive in 2014, fup viral load Hallucations now resolved, Mental health consult appreciated, geripsych consult appreciated dvt ppx; lovenox Dispo; PT note reviewed, to SNF History Interval history: no fevers patient is no longer confuse altered no vomiting, no diarrhea c/o abdominal distension and discomfort and anorexia Hospitalist Physical - Physical exam Narrative exam: General appearance: Present: no acute distress, other (confused) - EENT Eyes: Present: PERRL - Neck Neck: Present: supple - Respiratory Respiratory: bilateral: CTA - Cardiovascular Rhythm: regular Heart Sounds: Present: S1 & S2 - Extremities Extremities: no ischemia - Abdominal General gastrointestinal: soft, non-tender, but distended - Integumentary Integumentary: Present: clear, warm, dry - Psychiatric Psychiatric: calm and cooperative, intact judgment & insight - Neurologic Neurologic: CNII-XII intact, no focal deficits - Constitutional Vitals: Temp Pulse Resp BP Pulse Ox 98.9 F 112 H 20 175/76 95 10/19/18 13:27 10/19/18 14:17 10/19/18 14:17 10/19/18 13:59 10/19/18 13:27 General appearance: Present: other (confused) Results - Labs CBC & Chem 7: 10/19/18 05:13 10/19/18 05:13 Labs: Laboratory Last Values WBC 26.7 K/mm3 (4.5-11.0) H 10/19/18 05:13 RBC 3.05 M/mm3 (3.65-5.03) L 10/19/18 05:13 Hgb 10.0 gm/dl (10.1-14.3) L 10/19/18 05:13 Hct 30.9 % (30.3-42.9) 10/19/18 05:13 MCV 102 fl (79-97) H 10/19/18 05:13 MCH 33 pg (28-32) H 10/19/18 05:13 MCHC 32 % (30-34) 10/19/18 05:13 RDW 14.6 % (13.2-15.2) 10/19/18 05:13 Plt Count 230 K/mm3 (140-440) 10/19/18 05:13 Lymph % (Auto) 6.4 % (13.4-35.0) L 10/14/18 04:36 [place] % (Auto) 4.4 % (0.0-7.3) 10/14/18 04:36 Eos % (Auto) 0.4 % (0.0-4.3) 10/14/18 04:36 Baso % (Auto) 0.4 % (0.0-1.8) 10/14/18 04:36 Lymph # 1.1 K/mm3 (1.2-5.4) L 10/14/18 04:36 [place] # 0.7 K/mm3 (0.0-0.8) 10/14/18 04:36 Eos # 0.1 K/mm3 (0.0-0.4) 10/14/18 04:36 Baso # 0.1 K/mm3 (0.0-0.1) 10/14/18 04:36 Add Manual Diff Complete 10/19/18 05:13 Total Counted 100 10/19/18 05:13 Seg Neutrophils % Research Computing Specialist 10/18/18 09:21 Seg Neuts % (Manual) 88.0 % (40.0-70.0) H 10/19/18 05:13 0 % 10/19/18 05:13 7.0 % (13.4-35.0) L 10/19/18 05:13 Reactive Lymphs % (Man) 0 % 10/19/18 05:13 5.0 % (0.0-7.3) 10/19/18 05:13 0 % (0.0-4.3) 10/19/18 05:13 0 % (0.0-1.8) 10/19/18 05:13 0 % 10/19/18 05:13 0 % 10/19/18 05:13 0 % 10/19/18 05:13 0 % 10/19/18 05:13 Nucleated RBC % Not Reportable 10/19/18 05:13 Seg Neutrophils # 14.6 K/mm3 (1.8-7.7) H 10/14/18 04:36 Seg Neutrophils # Man 23.5 K/mm3 (1.8-7.7) H 10/19/18 05:13 Band Neutrophils # 0.0 K/mm3 10/19/18 05:13 1.9 K/mm3 (1.2-5.4) 10/19/18 05:13 Abs React Lymphs (Man) 0.0 K/mm3 10/19/18 05:13 1.3 K/mm3 (0.0-0.8) H 10/19/18 05:13 0.0 K/mm3 (0.0-0.4) 10/19/18 05:13 0.0 K/mm3 (0.0-0.1) 10/19/18 05:13 0.0 K/mm3 10/19/18 05:13 0.0 K/mm3 10/19/18 05:13 0.0 K/mm3 10/19/18 05:13 Blast Cells # 0.0 K/mm3 10/19/18 05:13 WBC Morphology Not Reportable 10/19/18 05:13 Hypersegmented Neuts Not Reportable 10/19/18 05:13 Hyposegmented Neuts Not Reportable 10/19/18 05:13 Hypogranular Neuts Not Reportable 10/19/18 05:13 Not Reportable 10/19/18 05:13 Not Reportable 10/19/18 05:13 Not Reportable 10/19/18 05:13 Not Reportable 10/19/18 05:13 Not Reportable 10/19/18 05:13 Not Reportable 10/19/18 05:13 Consistent w auto 10/19/18 05:13 Not Reportable 10/19/18 05:13 Plt Clumps, EDTA Not Reportable 10/19/18 05:13 Not Reportable 10/19/18 05:13 Not Reportable 10/19/18 05:13 Not Reportable 10/19/18 05:13 Plt Morphology Comment Not Reportable 10/19/18 05:13 RBC Morphology Normal 10/19/18 05:13 Dimorphic RBCs Not Reportable 10/19/18 05:13 Not Reportable 10/19/18 05:13 Not Reportable 10/19/18 05:13 Not Reportable 10/19/18 05:13 Not Reportable 10/19/18 05:13 Not Reportable 10/19/18 05:13 Not Reportable 10/19/18 05:13 Not Reportable 10/19/18 05:13 Not Reportable 10/19/18 05:13 Not Reportable 10/19/18 05:13 Not Reportable 10/19/18 05:13 Not Reportable 10/19/18 05:13 Not Reportable 10/19/18 05:13 Not Reportable 10/19/18 05:13 Not Reportable 10/19/18 05:13 Not Reportable 10/19/18 05:13 Not Reportable 10/19/18 05:13 Not Reportable 10/19/18 05:13 Not Reportable 10/19/18 05:13 Not Reportable 10/19/18 05:13 Acanthocytes (Spur) Not Reportable 10/19/18 05:13 Rouleaux Not Reportable 10/19/18 05:13 Not Reportable 10/19/18 05:13 Not Reportable 10/19/18 05:13 Not Reportable 10/19/18 05:13 Not Reportable 10/19/18 05:13 Hem Pathologist Commnt No 10/19/18 05:13 APTT 30.9 Sec. (24.2-36.6) 10/13/18 09:17 Sodium 142 mmol/L (137-145) 10/19/18 05:13 Potassium 3.6 mmol/L (3.6-5.0) D 10/19/18 05:13 Chloride 108.4 mmol/L (98-107) H 10/19/18 05:13 Carbon Dioxide 19 mmol/L (22-30) L 10/19/18 05:13 18 mmol/L 10/19/18 05:13 BUN 22 mg/dL (7-17) H 10/19/18 05:13 0.9 mg/dL (0.7-1.2) 10/19/18 05:13 Estimated GFR > 60 ml/min 10/19/18 05:13 24 % 10/19/18 05:13 Glucose 99 mg/dL (65-100) 10/19/18 05:13 POC Glucose 136 (70-105) H 10/19/18 11:24 5.5 % (4-6) 10/13/18 09:17 Lactic Acid 3.30 mmol/L (0.7-2.0) H* 10/14/18 11:23 Calcium 7.5 mg/dL (8.4-10.2) L 10/19/18 05:13 Phosphorus 2.60 mg/dL (2.5-4.5) 10/19/18 05:13 Magnesium 2.30 mg/dL (1.7-2.3) 10/18/18 09:21 0.20 mg/dL (0.1-1.2) 10/13/18 11:09 AST 73 units/L (5-40) H 10/13/18 11:09 ALT 18 units/L (7-56) 10/13/18 11:09 268 units/L (35-129) H 10/13/18 11:09 72.0 umol/L (25-60) H 10/13/18 09:17 1061 units/L (30-135) H 10/15/18 12:22 0.029 ng/mL (0.00-0.029) 10/13/18 09:17 6.0 g/dL (6.3-8.2) L 10/13/18 11:09 3.0 g/dL (3.9-5) L 10/13/18 11:09 1.0 % 10/13/18 11:09 17 units/L (13-60) 10/13/18 09:17 TSH 2.920 mlU/mL (0.270-4.200) 10/13/18 09:17 Lakia (Yellow) 10/15/18 12:27 Slightly-cloudy (Clear) 10/15/18 12:27 6.0 (5.0-7.0) 10/15/18 12:27 Ur Specific [place] 1.020 (1.003-1.030) 10/15/18 12:27 100 mg/dl mg/dL (Negative) 10/15/18 12:27 Neg mg/dL (Negative) 10/15/18 12:27 Tr mg/dL (Negative) 10/15/18 12:27 Mod (Negative) 10/15/18 12:27 Neg (Negative) 10/15/18 12:27 Neg (Negative) 10/15/18 12:27 < 2.0 mg/dL (<2.0) 10/15/18 12:27 Ur Leukocyte Esterase Neg (Negative) 10/15/18 12:27 9.0 /HPF (0.0-6.0) H 10/15/18 12:27 2.0 /HPF (0.0-6.0) 10/15/18 12:27 U Epithel Cells (Auto) 3.0 /HPF (0-13.0) 10/15/18 12:27 2+ /HPF (Negative) 10/13/18 08:32 3+ /HPF 10/13/18 08:32 Few /HPF 10/15/18 12:27 None seen (None Seen) 10/15/18 12:27 103.2 mg/dL (0.1-20.0) H 10/15/18 12:27 Hepatitis A IgM Ab Non-reactive (NonReactive) 10/13/18 18:08 Hep Bs Antigen Non-reactive (Negative) 10/13/18 18:08 Hep B Core IgM Ab Non-reactive (NonReactive) 10/13/18 18:08 Reactive (NonReactive) A 10/13/18 18:08 Active Medications - Current Medications Current Medications: Generic Name Dose Route Start Last Admin Trade Name Freq PRN Reason Stop Dose Admin Acetaminophen 650 mg 10/13/18 19:41 10/17/18 21:45 Tylenol PO 650 mg Q4H PRN Administration Pain MILD(1-3)/Fever >100.5/[place] Albuterol 2.5 mg 10/14/18 10:38 Proventil IH Q4HRT PRN Shortness Of Breath Albuterol/Ipratropium 1 ampul 10/14/18 14:00 10/19/18 13:57 Duoneb *Not For Prn Use* IH 1 ampul TIDRT LUDA Administration Bisacodyl 10 mg 10/14/18 16:00 10/19/18 09:56 Dulcolax [place] 10 mg QDAY LUDA Administration Cephalexin 500 mg 10/16/18 22:00 10/19/18 09:56 Keflex PO 10/19/18 23:59 500 mg Q12HR LUDA Administration Diphenhydramine HCl 25 mg 10/17/18 22:35 10/19/18 01:16 Benadryl PO 25 mg QHS PRN Administration Sleep Docusate Sodium 100 mg 10/15/18 22:00 10/19/18 09:57 Colace PO 100 mg BID LUDA Administration Hydralazine HCl 10 mg 10/17/18 22:35 10/19/18 13:59 Apresoline IV 10 mg Q4H PRN Administration Hypertension Hydromorphone HCl 0.5 mg 10/14/18 12:23 10/19/18 14:00 Dilaudid IV 0.5 mg Q3H PRN Administration Pain , Severe (7-10) Sodium Chloride 100 mls @ 999 mls/hr 10/13/18 16:23 Nacl 0.9% IV STEVE PRN Hypotension Sodium Chloride 1,000 mls @ 75 mls/hr 10/15/18 16:00 10/19/18 07:23 Nacl 0.9% 1000 Ml IV 75 mls/hr DIRECT LUDA Administration Potassium Chloride 40 meq/ 520 mls @ 125 mls/hr 10/18/18 10:45 10/19/18 13:16 Sodium Chloride IV 10/20/18 14:55 125 mls/hr DIRECT LUDA Administration Metronidazole 50 mls @ 50 mls/hr 10/19/18 16:00 Flagyl 250 Mg/50 Ml IV Q8H LUDA Protocol Insulin Human Lispro 0 unit 10/15/18 16:30 10/19/18 12:13 Humalog SUB-Q Not Given ACHS LUDA Protocol Melatonin 5 mg 10/18/18 22:00 Melatonin PO QHS PRN Sleep Metoclopramide HCl 10 mg 10/13/18 19:41 Reglan IV Q6H PRN Nausea And Vomiting Nicotine 14 mg 10/14/18 10:00 10/19/18 09:56 Habitrol TD 14 mg QDAY LUDA Administration Ondansetron HCl 4 mg 10/13/18 19:41 10/15/18 03:58 Zofran IV 4 mg Q3H PRN Administration Nausea And Vomiting Pantoprazole Sodium 40 mg 10/16/18 22:00 10/19/18 09:56 Protonix PO 40 mg BID LUDA Administration Polyethylene Glycol 17 gm 10/15/18 13:00 10/19/18 09:57 Miralax 3350 PO 17 gm QDAY LUDA Administration Sodium Chloride 10 ml 10/13/18 22:00 10/19/18 09:57 Sodium Chloride Flush Syringe 10 Ml IV 10 ml BID LUDA Administration Sodium Chloride 10 ml 10/13/18 19:41 10/19/18 14:04 Sodium Chloride Flush Syringe 10 Ml IV 10 ml PRN PRN Administration LINE FLUSH Sucralfate 1 gm 10/15/18 16:30 10/19/18 12:12 Carafate PO 1 gm ACHS LUDA Administration Nutrition/Malnutrition Assess - Dietary Evaluation Nutrition/Malnutrition Findings: Nutrition Notes Start: 10/14/18 11:37 Freq: Status: Active Protocol: Document 10/16/18 16:28 RM (Rec: 10/16/18 16:35 RM [id number]) Nutrition Notes Initial or Follow up Reassessment Current Diagnosis CKD(stage I-IV),COPD,Diabetes, Sepsis,Hypertension,Stroke Other Pertinent Diagnosis UTI, Acute Encephalopathy, Hep C, Partial SBO Current Diet GI soft Labs/Tests Reviewed Pertinent Medications Zofran Height 5 ft 2 in Weight 61.9 kg [place] Body Weight (kg) 50.00 BMI 25.0 Subjective/Other Information Pt moved from ICU to [facility]. Pt stated that her appetite is poor d/t her being uncomfortable and abdominal pain. Stated that she has not eaten her first meal yet. Declined ONS for now d/t wanting to try to eat. Percent of energy/protein needs met: 0%/0% Burn Absent Trauma Absent #1 Nutrition Diagnosis Inadequate oral intake Diagnosis Progress(for reassessment Continues documentation) Is patient on ventilator? No Is Patient Ambulatory and/or Out of Bed Yes REE-([facility]-ambulatory/OOB) [ [id number]] Calculation Used for Recommendations [facility] Additional Notes Protein needs: 50-62g(0.8-1g/ kg) Fluid needs: 1ml/kcal Nutrition Intervention Change Diet Order: Continue current Goal #1 Meet at least 75% of calorie and protein needs via PO intakes Anticipated Discharge Needs: Unable to determine at this time Follow-Up By: 10/20/18 Additional Comments Follow for PO intakes
--- NOTE | 2018-10-19 17:09 | Event Note ---
Date: 10/19/[address] Rodriguez about the increased distention for this patient. Pt only reporting discomfort from the distention and not significant pain. Will try to decompress her first. If her status worsens, then will consider more aggressive intervention. CT and chart reviewed.
[2018-10-19] MEDS: VIAFLEX EMPTY CONTAINER IV SCH (17:37)
[2018-10-19] MEDS: NS IV SCH (17:37)
[2018-10-19] MEDS: FLAGYL IV SCH (17:37)
[2018-10-20] MEDS: DILAUDID IV PRN ×2 (02:21→14:25)
[2018-10-20] MEDS: NS IV SCH ×3 (02:22→17:23)
[2018-10-20] MEDS: VIAFLEX EMPTY CONTAINER IV SCH ×3 (02:22→17:23)
[2018-10-20] MEDS: FLAGYL IV SCH ×3 (02:22→17:23)
[2018-10-20 05:19] LABS: Hematocrit 28.7 % (30.3-42.9); Hemoglobin 9.3 gm/dl (10.1-14.3); Mean Corpuscular HGB Conc 32 % (30-34); Mean Corpuscular Volume 101 fl (79-97); Platelet Count 298 K/mm3 (140-440); Red Blood Count 2.85 M/mm3 (3.65-5.03); Red Cell Distribution Width 14.7 % (13.2-15.2)
[2018-10-20 05:32] LABS: Calcium 7.5 mg/dL (8.4-10.2)
[2018-10-20 07:12] LABS: Band Neutrophils # (Manual) 0.2 K/mm3; Basophils % (Manual) 0 % (0.0-1.8); Eosinophils % (Manual) 0 % (0.0-4.3); Total Cells Counted 100
[2018-10-20 07:13] LABS: Macrocytosis 1+; Platelet Estimate Consistent w Auto
[2018-10-20] MEDS: HumaLOG SUB-Q SCH ×3 (08:06→17:22)
--- NOTE | 2018-10-20 08:41 | XRay Report ---
ABDOMEN 1 VIEW(S) INDICATION / CLINICAL INFORMATION: abdominal pain and distension. COMPARISON: 10/19/2018 FINDINGS: TUBES / LINES: A nasogastric tube terminates in the distal stomach or just within the proximal duoden um BOWEL GAS PATTERN: No significant change in gaseous distention of bowel loops throughout the abdomen is demonstrated. FREE AIR / EXTRALUMINAL GAS: None seen. ADDITIONAL FINDINGS: No significant additional findings. IMPRESSION: No change since yesterday's exam. Signer Name: Stanford Feng Jr, MD Signed: 10/20/2018 8:36 AM Workstation Name: [id number]
[2018-10-20] MEDS: DUONEB *Not for PRN Use IH SCH ×3 (08:49→20:40)
[2018-10-20] MEDS: CARAFATE PO SCH ×3 (08:50→16:36)
[2018-10-20] MEDS: HABITROL TD SCH (12:07)
[2018-10-20] MEDS: COLACE PO SCH (12:08)
[2018-10-20] MEDS: MIRALAX 3350 PO SCH (12:08)
[2018-10-20] MEDS: PROTONIX PO SCH (12:08)
[2018-10-20] MEDS: SODIUM CHLORIDE FLUSH SYRINGE 10 ML IV SCH (12:09)
[2018-10-20] MEDS: DULCOLAX PR SCH (12:11)
--- NOTE | 2018-10-20 12:39 | Progress Note ---
Assessment and Plan Assessment and plan: 67 year old woman who presented to the hospital complaining of altered mental status, abdominal pain and low blood pressure was [place] in the ER. She was confused upon arrival what is oriented to person and place but not the time. Past medical history includes CVA diabetes hypertension COPD and chronic kidney disease Cxr No significant abnormalities Axr Neg CT abdomen and pelvis shows a few mildly dilated loops of proximal small bowel and Trace ascites CT head shows no acute abnormality Renal ultrasound shows no acute sonographic animality of the kidneys Repeat chest x-ray and abdominal x-ray shows only mild fecal retention Sepsis; cont sepsis protocol Acute on chronic kidney disease , improved with IV fluids, nephrology seeing patient UTI , continue antibiotics, urine culture growing E coli sens to Keflex, cont keflex to complete 7 days acute hyperkalemia, has been medically treated, received HD, now resolved, Vas cath removed on 10/17 hypokalemia, mg is normal, repleted IV, recheck in am partial bowel obstruction , ADAT per GS, daily AXR, distension is getting worse, but having frequent BMs, dw GS- obtain cT a/p , place NGT to LIS and rectal tube acute toxic metabolic encephalopathy; improving Rhabdomyolysis, continue IV fluids Hepatitis C antibody positive, previously positive in 2015, fup viral load Hallucations now resolved, Mental health consult appreciated, geripsych consult appreciated dvt ppx; lovenox Dispo; PT note reviewed, to SNF History Interval history: no fevers patient is no longer confuse altered no vomiting, no diarrhea c/o abdominal distension and discomfort and anorexia Hospitalist Physical - Physical exam Narrative exam: General appearance: Present: no acute distress, other (confused) - EENT Eyes: Present: PERRL - Neck Neck: Present: supple - Respiratory Respiratory: bilateral: CTA - Cardiovascular Rhythm: regular Heart Sounds: Present: S1 & S2 - Extremities Extremities: no ischemia - Abdominal General gastrointestinal: soft, non-tender, but distended - Integumentary Integumentary: Present: clear, warm, dry - Psychiatric Psychiatric: calm and cooperative, intact judgment & insight - Neurologic Neurologic: CNII-XII intact, no focal deficits - Constitutional Vitals: Temp Pulse Resp BP Pulse Ox 98.8 F 100 H 20 172/77 94 10/20/18 07:31 10/20/18 10:00 10/20/18 10:00 10/20/18 07:31 10/20/18 08:49 General appearance: Present: other (confused) Results - Labs CBC & Chem 7: 10/20/18 04:49 10/20/18 04:49 Labs: Laboratory Last Values WBC 22.4 K/mm3 (4.5-11.0) H 10/20/18 04:49 RBC 2.85 M/mm3 (3.65-5.03) L 10/20/18 04:49 Hgb 9.3 gm/dl (10.1-14.3) L 10/20/18 04:49 Hct 28.7 % (30.3-42.9) L 10/20/18 04:49 MCV 101 fl (79-97) H 10/20/18 04:49 MCH 33 pg (28-32) H 10/20/18 04:49 MCHC 32 % (30-34) 10/20/18 04:49 RDW 14.7 % (13.2-15.2) 10/20/18 04:49 Plt Count 298 K/mm3 (140-440) 10/20/18 04:49 Lymph % (Auto) 6.4 % (13.4-35.0) L 10/14/18 04:36 [place] % (Auto) 4.4 % (0.0-7.3) 10/14/18 04:36 Eos % (Auto) 0.4 % (0.0-4.3) 10/14/18 04:36 Baso % (Auto) 0.4 % (0.0-1.8) 10/14/18 04:36 Lymph # 1.1 K/mm3 (1.2-5.4) L 10/14/18 04:36 [place] # 0.7 K/mm3 (0.0-0.8) 10/14/18 04:36 Eos # 0.1 K/mm3 (0.0-0.4) 10/14/18 04:36 Baso # 0.1 K/mm3 (0.0-0.1) 10/14/18 04:36 Add Manual Diff Complete 10/20/18 04:49 Total Counted 100 10/20/18 04:49 Seg Neutrophils % Job Service Consultant 10/18/18 09:21 Seg Neuts % (Manual) 91.0 % (40.0-70.0) H 10/20/18 04:49 1.0 % 10/20/18 04:49 4.0 % (13.4-35.0) L 10/20/18 04:49 Reactive Lymphs % (Man) 0 % 10/20/18 04:49 4.0 % (0.0-7.3) 10/20/18 04:49 0 % (0.0-4.3) 10/20/18 04:49 0 % (0.0-1.8) 10/20/18 04:49 0 % 10/20/18 04:49 0 % 10/20/18 04:49 0 % 10/20/18 04:49 0 % 10/20/18 04:49 Nucleated RBC % Not Reportable 10/20/18 04:49 Seg Neutrophils # 14.6 K/mm3 (1.8-7.7) H 10/14/18 04:36 Seg Neutrophils # Man 20.4 K/mm3 (1.8-7.7) H 10/20/18 04:49 Band Neutrophils # 0.2 K/mm3 10/20/18 04:49 0.9 K/mm3 (1.2-5.4) L 10/20/18 04:49 Abs React Lymphs (Man) 0.0 K/mm3 10/20/18 04:49 0.9 K/mm3 (0.0-0.8) H 10/20/18 04:49 0.0 K/mm3 (0.0-0.4) 10/20/18 04:49 0.0 K/mm3 (0.0-0.1) 10/20/18 04:49 0.0 K/mm3 10/20/18 04:49 0.0 K/mm3 10/20/18 04:49 0.0 K/mm3 10/20/18 04:49 Blast Cells # 0.0 K/mm3 10/20/18 04:49 WBC Morphology Not Reportable 10/20/18 04:49 Hypersegmented Neuts Not Reportable 10/20/18 04:49 Hyposegmented Neuts Not Reportable 10/20/18 04:49 Hypogranular Neuts Not Reportable 10/20/18 04:49 Not Reportable 10/20/18 04:49 Not Reportable 10/20/18 04:49 Not Reportable 10/20/18 04:49 Not Reportable 10/20/18 04:49 Not Reportable 10/20/18 04:49 Not Reportable 10/20/18 04:49 Consistent w auto 10/20/18 04:49 Not Reportable 10/20/18 04:49 Plt Clumps, EDTA Not Reportable 10/20/18 04:49 Not Reportable 10/20/18 04:49 Not Reportable 10/20/18 04:49 Not Reportable 10/20/18 04:49 Plt Morphology Comment Not Reportable 10/20/18 04:49 RBC Morphology Not Reportable 10/20/18 04:49 Dimorphic RBCs Not Reportable 10/20/18 04:49 Not Reportable 10/20/18 04:49 Not Reportable 10/20/18 04:49 Not Reportable 10/20/18 04:49 Not Reportable 10/20/18 04:49 Not Reportable 10/20/18 04:49 1+ 10/20/18 04:49 Not Reportable 10/20/18 04:49 Not Reportable 10/20/18 04:49 Not Reportable 10/20/18 04:49 Not Reportable 10/20/18 04:49 Not Reportable 10/20/18 04:49 Not Reportable 10/20/18 04:49 Not Reportable 10/20/18 04:49 Not Reportable 10/20/18 04:49 Not Reportable 10/20/18 04:49 Not Reportable 10/20/18 04:49 Not Reportable 10/20/18 04:49 Not Reportable 10/20/18 04:49 Not Reportable 10/20/18 04:49 Acanthocytes (Spur) Not Reportable 10/20/18 04:49 Rouleaux Not Reportable 10/20/18 04:49 Not Reportable 10/20/18 04:49 Not Reportable 10/20/18 04:49 Not Reportable 10/20/18 04:49 Not Reportable 10/20/18 04:49 Hem Pathologist Commnt No 10/20/18 04:49 APTT 30.9 Sec. (24.2-36.6) 10/13/18 09:17 Sodium 137 mmol/L (137-145) 10/20/18 04:49 Potassium 4.1 mmol/L (3.6-5.0) 10/20/18 04:49 Chloride 108.1 mmol/L (98-107) H 10/20/18 04:49 Carbon Dioxide 17 mmol/L (22-30) L 10/20/18 04:49 16 mmol/L 10/20/18 04:49 BUN 23 mg/dL (7-17) H 10/20/18 04:49 1.0 mg/dL (0.7-1.2) 10/20/18 04:49 Estimated GFR 55 ml/min 10/20/18 04:49 23 % 10/20/18 04:49 Glucose 102 mg/dL (65-100) H 10/20/18 04:49 POC Glucose 110 (70-105) H 10/20/18 07:38 5.5 % (4-6) 10/13/18 09:17 Lactic Acid 3.30 mmol/L (0.7-2.0) H* 10/14/18 11:23 Calcium 7.5 mg/dL (8.4-10.2) L 10/20/18 04:49 Phosphorus 2.60 mg/dL (2.5-4.5) 10/19/18 05:13 Magnesium 2.30 mg/dL (1.7-2.3) 10/18/18 09:21 0.20 mg/dL (0.1-1.2) 10/13/18 11:09 AST 73 units/L (5-40) H 10/13/18 11:09 ALT 18 units/L (7-56) 10/13/18 11:09 268 units/L (35-129) H 10/13/18 11:09 72.0 umol/L (25-60) H 10/13/18 09:17 1061 units/L (30-135) H 10/15/18 12:22 0.029 ng/mL (0.00-0.029) 10/13/18 09:17 6.0 g/dL (6.3-8.2) L 10/13/18 11:09 3.0 g/dL (3.9-5) L 10/13/18 11:09 1.0 % 10/13/18 11:09 17 units/L (13-60) 10/13/18 09:17 TSH 2.920 mlU/mL (0.270-4.200) 10/13/18 09:17 [place] (Yellow) 10/15/18 12:27 Slightly-cloudy (Clear) 10/15/18 12:27 6.0 (5.0-7.0) 10/15/18 12:27 Ur Specific [place] 1.020 (1.003-1.030) 10/15/18 12:27 100 mg/dl mg/dL (Negative) 10/15/18 12:27 Neg mg/dL (Negative) 10/15/18 12:27 Tr mg/dL (Negative) 10/15/18 12:27 Mod (Negative) 10/15/18 12:27 Neg (Negative) 10/15/18 12:27 Neg (Negative) 10/15/18 12:27 < 2.0 mg/dL (<2.0) 10/15/18 12:27 Ur Leukocyte Esterase Neg (Negative) 10/15/18 12:27 9.0 /HPF (0.0-6.0) H 10/15/18 12:27 2.0 /HPF (0.0-6.0) 10/15/18 12:27 U Epithel Cells (Auto) 3.0 /HPF (0-13.0) 10/15/18 12:27 2+ /HPF (Negative) 10/13/18 08:32 3+ /HPF 10/13/18 08:32 Few /HPF 10/15/18 12:27 None seen (None Seen) 10/15/18 12:27 103.2 mg/dL (0.1-20.0) H 10/15/18 12:27 Hepatitis A IgM Ab Non-reactive (NonReactive) 10/13/18 18:08 Hep Bs Antigen Non-reactive (Negative) 10/13/18 18:08 Hep B Core IgM Ab Non-reactive (NonReactive) 10/13/18 18:08 Reactive (NonReactive) A 10/13/18 18:08 Active Medications - Current Medications Current Medications: Generic Name Dose Route Start Last Admin Trade Name Freq PRN Reason Stop Dose Admin Acetaminophen 650 mg 10/13/18 19:41 10/17/18 21:45 Tylenol PO 650 mg Q4H PRN Administration Pain MILD(1-3)/Fever >100.5/[place] Albuterol 2.5 mg 10/14/18 10:38 Proventil IH Q4HRT PRN Shortness Of Breath Albuterol/Ipratropium 1 ampul 10/14/18 14:00 10/20/18 08:49 Duoneb *Not For Prn Use* IH 1 ampul TIDRT LUDA Administration Bisacodyl 10 mg 10/14/18 16:00 10/20/18 12:11 Dulcolax RI 10 mg QDAY LUDA Administration Diphenhydramine HCl 25 mg 10/17/18 22:35 10/19/18 01:16 Benadryl PO 25 mg QHS PRN Administration Sleep Docusate Sodium 100 mg 10/15/18 22:00 10/20/18 12:08 Colace PO Not Given BID LUDA Hydralazine HCl 10 mg 10/17/18 22:35 10/19/18 13:59 Apresoline IV 10 mg Q4H PRN Administration Hypertension Hydromorphone HCl 0.5 mg 10/14/18 12:23 10/20/18 02:21 Dilaudid IV 0.5 mg Q3H PRN Administration Pain , Severe (7-10) Sodium Chloride 100 mls @ 999 mls/hr 10/13/18 16:23 Nacl 0.9% IV STEVE PRN Hypotension Sodium Chloride 1,000 mls @ 75 mls/hr 10/15/18 16:00 10/19/18 07:23 Nacl 0.9% 1000 Ml IV 75 mls/hr DIRECT LUDA Administration Potassium Chloride 40 meq/ 520 mls @ 125 mls/hr 10/18/18 10:45 10/19/18 19:49 Sodium Chloride IV 10/20/18 14:55 125 mls/hr DIRECT LUDA Administration Metronidazole 250 mg/ 50 mls @ 50 mls/hr 10/19/18 18:00 10/20/18 12:07 Miscellaneous Information IV 50 mls/hr Q8H LUDA Administration Protocol Insulin Human Lispro 0 unit 10/15/18 16:30 10/20/18 08:06 Humalog SUB-Q Not Given ACHS LUDA Protocol Melatonin 5 mg 10/18/18 22:00 10/19/18 22:42 Melatonin PO 5 mg QHS PRN Administration Sleep Metoclopramide HCl 10 mg 10/13/18 19:41 Reglan IV Q6H PRN Nausea And Vomiting Nicotine 14 mg 10/14/18 10:00 10/20/18 12:07 Habitrol TD 14 mg QDAY LUDA Administration Ondansetron HCl 4 mg 10/13/18 19:41 10/15/18 03:58 Zofran IV 4 mg Q3H PRN Administration Nausea And Vomiting Pantoprazole Sodium 40 mg 10/16/18 22:00 10/20/18 12:08 Protonix PO Not Given BID LUDA Polyethylene Glycol 17 gm 10/15/18 13:00 10/20/18 12:08 Miralax 3350 PO Not Given QDAY LUDA Sodium Chloride 10 ml 10/13/18 22:00 10/20/18 12:09 Sodium Chloride Flush Syringe 10 Ml IV 10 ml BID LUDA Administration Sodium Chloride 10 ml 10/13/18 19:41 10/19/18 14:04 Sodium Chloride Flush Syringe 10 Ml IV 10 ml PRN PRN Administration LINE FLUSH Sucralfate 1 gm 10/15/18 16:30 10/20/18 12:09 Carafate PO Not Given ACHS [facility] Nutrition/Malnutrition Assess - Dietary Evaluation Nutrition/Malnutrition Findings: Nutrition Notes Start: 10/14/18 11:37 Freq: Status: Active Protocol: Document 10/16/18 16:28 RM (Rec: 10/16/18 16:35 RM [id number]) Nutrition Notes Initial or Follow up Reassessment Current Diagnosis CKD(stage I-IV),COPD,Diabetes, Sepsis,Hypertension,Stroke Other Pertinent Diagnosis UTI, Acute Encephalopathy, Hep C, Partial SBO Current Diet GI soft Labs/Tests Reviewed Pertinent Medications Zofran Height 5 ft 2 in Weight 61.9 kg Mallie Body Weight (kg) 50.00 BMI 25.0 Subjective/Other Information Pt moved from ICU to [place]. Pt stated that her appetite is poor d/t her being uncomfortable and abdominal pain. Stated that she has not eaten her first meal yet. Declined ONS for now d/t wanting to try to eat. Percent of energy/protein needs met: 0%/0% Burn Absent Trauma Absent #1 Nutrition Diagnosis Inadequate oral intake Diagnosis Progress(for reassessment Continues documentation) Is patient on ventilator? No Is Patient Ambulatory and/or Out of Bed Yes REE-([facility]-ambulatory/OOB) [ 1432.925 [id number]] Calculation Used for Recommendations [facility] Additional Notes Protein needs: 50-62g(0.8-1g/ kg) Fluid needs: 1ml/kcal Nutrition Intervention Change Diet Order: Continue current Goal #1 Meet at least 75% of calorie and protein needs via PO intakes Anticipated Discharge Needs: Unable to determine at this time Follow-Up By: 10/20/18 Additional Comments Follow for PO intakes
--- NOTE | 2018-10-20 13:42 | Progress Note ---
Assessment and Plan 67 yo F with 1. abdominal pain and distension - ileus, colonic distension, hx duodenal ulcer 2. sepsis 3. UTI 4. hyperkalemia 5. acute renal failure 6. AMS Obstruction series 10/14/18 - no evidence of obstruction. fecal retention CT scan A/P 10/19/18 - images and read reviewed - "diffuse distension of small and large bowel. this is greatest at the cecum which measures 9.6 cm in maximum diameter." "I do not see a transition point to suggest bowel obstruction. There may be colitis involving the distal colon." Plan: 1. continue NGT to LIWS 2. IVF per 1' team 3. SBFT in progress - will follow up results. 4. PPI BID 5. IV abx - on flagyl, will add levaquin for possible colitis\\ 6. continue flexiseal, may need to change to red rubber catheter if no improvement in colonic distension 7. stool studies 8. prn pain control - on dilaudid 0.5 mg IV q3 hours. Thank you, please call with questions. D/W Dr. Rodriguez Subjective Date of service: 10/20/18 Narrative: Pt seen and examined. Called to reexamine patient for abdominal distension and pain over the weekend. Ct scan reviewed. Pt c/o RLQ abdominal pain and back pain. States dilaudid is not enough for pain. She has not been OOB. She is having BMs and had several yesterday evening. + Flatus. No n/v. No f/c. Objective Vital Signs - 12hr 10/20/18 10/20/18 10/20/18 02:43 06:19 07:31 Temperature 98.1 F 98.8 F Pulse Rate 114 H 117 H 112 H Pulse Rate [ Anterior Bilateral Throughout] Pulse Rate [ From Monitor] Respiratory 18 20 Rate Respiratory Rate [Anterior Bilateral Throughout] Blood Pressure 180/69 172/77 O2 Sat by Pulse 97 95 Oximetry 10/20/18 10/20/18 08:49 10:00 Temperature Pulse Rate Pulse Rate [ 115 H Anterior Bilateral Throughout] Pulse Rate [ 100 H From Monitor] Respiratory 20 Rate Respiratory 20 Rate [Anterior Bilateral Throughout] Blood Pressure O2 Sat by Pulse 94 Oximetry - General physical appearance Narrative Exam: Gen: Awake and alert. appears anxious and speaking vert fast ENT; NGT with light green drainage - about 150 cc in canister CV; S1, S2+, tachy Resp: unlabored Abd: soft, distended, R sided TTP. no r/r/g Ext: no c/c/e - Labs 10/20/18 04:49 10/20/18 04:49 Diabetes panel 10/20/18 Range/Units 04:49 Sodium 137 (137-145) mmol/L Potassium 4.1 (3.6-5.0) mmol/L Chloride 108.1 H (98-107) mmol/L Carbon Dioxide 17 L (22-30) mmol/L BUN 23 H (7-17) mg/dL Creatinine 1.0 (0.7-1.2) mg/dL Glucose 102 H (65-100) mg/dL Calcium 7.5 L (8.4-10.2) mg/dL Calcium panel 10/20/18 Range/Units 04:49 Calcium 7.5 L (8.4-10.2) mg/dL Pituitary panel 10/20/18 Range/Units 04:49 Sodium 137 (137-145) mmol/L Potassium 4.1 (3.6-5.0) mmol/L Chloride 108.1 H (98-107) mmol/L Carbon Dioxide 17 L (22-30) mmol/L BUN 23 H (7-17) mg/dL Creatinine 1.0 (0.7-1.2) mg/dL Glucose 102 H (65-100) mg/dL Calcium 7.5 L (8.4-10.2) mg/dL Adrenal panel 10/20/18 Range/Units 04:49 Sodium 137 (137-145) mmol/L Potassium 4.1 (3.6-5.0) mmol/L Chloride 108.1 H (98-107) mmol/L Carbon Dioxide 17 L (22-30) mmol/L BUN 23 H (7-17) mg/dL Creatinine 1.0 (0.7-1.2) mg/dL Glucose 102 H (65-100) mg/dL Calcium 7.5 L (8.4-10.2) mg/dL
[2018-10-20] MEDS: NACL 0.9% 1000 ML 1,000 ML IV SCH (13:46)
[2018-10-20] MEDS ORDERED: LEVAQUIN 500MG/100ML 500 MG/100 ML BAG IV SCH (14:00)
--- NOTE | 2018-10-20 14:17 | Progress Note ---
Assessment and Plan Pt weak complaining of abdominal pain. Also complaining of some shortness of breath. Pt is on 3L O2. O2 saturation latest 91%. Pt afebrile but has leukocytosis. Pt's abdominal CT scan reported distention of the colon. Surgery is consulted. - Patient Problems (1) COPD (chronic obstructive pulmonary disease) Current Visit: No Status: Chronic Plan to address problem: Pt is on O2 3L Albuterol and Atrovent aerosol treatments q 6 hours Pt receiving Levoquin and Metronidazol Continue Protonix ABG's on room air (2) Colitis Current Visit: No Status: Acute Plan to address problem: pt is on Levaquin and Metronidazole (3) Acute on chronic renal failure Current Visit: Yes Status: Acute Qualifiers: Acute renal failure type: unspecified Chronic kidney disease stage: unspecified stage Qualified Code(s): N17.9 - Acute kidney failure, unspecified; N18.9 - Chronic kidney disease, unspecified Plan to address problem: management as per nephrology (4) Partial small bowel obstruction Current Visit: Yes Status: Acute Plan to address problem: Pt is on nasogastric suction Surgery is on consult Subjective Date of service: 10/20/18 Principal diagnosis: ARF Interval history: Pt weak complaining of abdominal pain. Also complaining of some shortness of breath. Pt is on 3L O2. O2 saturation latest 91%. Pt afebrile but has leukocytosis. Pt's abdominal CT scan reported distention of the colon. Surgery is consulted. Objective Vital Signs - 12hr 10/20/18 10/20/18 10/20/18 02:43 06:19 07:31 Temperature 98.1 F 98.8 F Pulse Rate 114 H 117 H 112 H Pulse Rate [ Anterior Bilateral Throughout] Pulse Rate [ From Monitor] Respiratory 18 20 Rate Respiratory Rate [Anterior Bilateral Throughout] Blood Pressure 180/69 172/77 O2 Sat by Pulse 97 95 Oximetry 10/20/18 10/20/18 10/20/18 08:49 10:00 13:40 Temperature 97.8 F Pulse Rate 124 H Pulse Rate [ 115 H Anterior Bilateral Throughout] Pulse Rate [ 100 H From Monitor] Respiratory 20 20 Rate Respiratory 20 Rate [Anterior Bilateral Throughout] Blood Pressure 122/52 O2 Sat by Pulse 94 91 Oximetry Constitutional: alert, appears uncomfortable, other Eyes: non-icteric ENT: oropharynx moist, other (mallampati 3) Neck: supple, no lymphadenopathy, no JVD Effort: normal Ascultation: Bilateral: diminished breath sounds, rhonchi (scant) Percussion: Bilateral: not dull Cardiovascular: regular rate and rhythm Gastrointestinal: normoactive bowel sounds, tender (mildly all quadrants), other (distende, tympanitic on percussion) Integumentary: normal Extremities: no cyanosis, no edema, pink and warm, pulses normal Neurologic: normal mental status, non-focal exam (grossly), pupils equal and round, CN II-XII normal, motor strength normal and Psychiatric: mood appropriate, affect normal CBC and BMP: 10/20/18 04:49 10/20/18 04:49 Abnormal lab findings: Abnormal Labs 10/13/18 10/13/18 10/13/18 08:32 08:36 09:17 WBC 31.8 H RBC Hgb Hct 44.2 H MCV 102 H MCH 33 H MCHC Plt Count Lymph % (Auto) Lymph # Seg Neutrophils % Seg Neuts % (Manual) 83.0 H Lymphocytes % (Manual) 3.0 L Monocytes % (Manual) 10.0 H Nucleated RBC % Seg Neutrophils # Seg Neutrophils # Man 26.4 H Lymphocytes # (Manual) 1.0 L Monocytes # (Manual) 3.2 H Sodium Potassium Chloride Carbon Dioxide BUN Creatinine Glucose POC Glucose 281 H Lactic Acid Calcium AST Alkaline Phosphatase Ammonia Total Creatine Kinase Total Protein Albumin Urine WBC (Auto) > 182.0 H Urine Creatinine Hepatitis C Antibody 10/13/18 10/13/18 10/13/18 09:17 09:17 11:09 WBC RBC Hgb Hct MCV MCH MCHC Plt Count Lymph % (Auto) Lymph # Seg Neutrophils % Seg Neuts % (Manual) Lymphocytes % (Manual) Monocytes % (Manual) Nucleated RBC % Seg Neutrophils # Seg Neutrophils # Man Lymphocytes # (Manual) Monocytes # (Manual) Sodium Potassium 8.7 H* Chloride Carbon Dioxide 8 L* BUN 31 H Creatinine 3.2 H Glucose 264 H POC Glucose Lactic Acid 4.90 H* Calcium AST 67 H Alkaline Phosphatase 268 H Ammonia 72.0 H Total Creatine Kinase Total Protein Albumin 3.2 L Urine WBC (Auto) Urine Creatinine Hepatitis C Antibody 10/13/18 10/13/18 10/13/18 11:09 11:47 12:20 WBC RBC Hgb Hct MCV MCH MCHC Plt Count Lymph % (Auto) Lymph # Seg Neutrophils % Seg Neuts % (Manual) Lymphocytes % (Manual) Monocytes % (Manual) Nucleated RBC % Seg Neutrophils # Seg Neutrophils # Man Lymphocytes # (Manual) Monocytes # (Manual) Sodium Potassium 8.1 H* Chloride 111.0 H Carbon Dioxide 12 L BUN 31 H Creatinine 2.9 H Glucose 225 H POC Glucose 225 H Lactic Acid 5.20 H* Calcium AST 73 H Alkaline Phosphatase 268 H Ammonia Total Creatine Kinase Total Protein 6.0 L Albumin 3.0 L Urine WBC (Auto) Urine Creatinine Hepatitis C Antibody 10/13/18 10/13/18 10/13/18 12:30 12:30 18:08 WBC RBC Hgb Hct MCV MCH MCHC Plt Count Lymph % (Auto) Lymph # Seg Neutrophils % Seg Neuts % (Manual) Lymphocytes % (Manual) Monocytes % (Manual) Nucleated RBC % Seg Neutrophils # Seg Neutrophils # Man Lymphocytes # (Manual) Monocytes # (Manual) Sodium Potassium 8.1 H* Chloride 107.8 H Carbon Dioxide 11 L BUN 32 H Creatinine 2.9 H Glucose 329 H POC Glucose Lactic Acid Calcium AST Alkaline Phosphatase Ammonia Total Creatine Kinase 5299 H Total Protein Albumin Urine WBC (Auto) Urine Creatinine Hepatitis C Antibody Reactive A 10/14/18 10/14/18 10/14/18 04:36 04:36 05:35 WBC 16.5 H RBC 3.51 L Hgb Hct MCV 98 H MCH 34 H MCHC 35 H Plt Count Lymph % (Auto) 6.4 L Lymph # 1.1 L Seg Neutrophils % 88.4 H Seg Neuts % (Manual) Lymphocytes % (Manual) Monocytes % (Manual) Nucleated RBC % Seg Neutrophils # 14.6 H Seg Neutrophils # Man Lymphocytes # (Manual) Monocytes # (Manual) Sodium Potassium 5.1 H D Chloride Carbon Dioxide BUN 19 H Creatinine 1.5 H Glucose 155 H POC Glucose 142 H Lactic Acid Calcium 7.6 L AST Alkaline Phosphatase Ammonia Total Creatine Kinase Total Protein Albumin Urine WBC (Auto) Urine Creatinine Hepatitis C Antibody 10/14/18 10/14/18 10/14/18 11:23 11:23 11:42 WBC RBC Hgb Hct MCV MCH MCHC Plt Count Lymph % (Auto) Lymph # Seg Neutrophils % Seg Neuts % (Manual) Lymphocytes % (Manual) Monocytes % (Manual) Nucleated RBC % Seg Neutrophils # Seg Neutrophils # Man Lymphocytes # (Manual) Monocytes # (Manual) Sodium Potassium Chloride Carbon Dioxide BUN Creatinine Glucose POC Glucose 154 H Lactic Acid 3.30 H* Calcium AST Alkaline Phosphatase Ammonia Total Creatine Kinase 1935 H Total Protein Albumin Urine WBC (Auto) Urine Creatinine Hepatitis C Antibody 10/14/18 10/14/18 10/15/18 17:39 23:18 04:12 WBC RBC 3.22 L Hgb Hct MCV 99 H MCH 34 H MCHC Plt Count Lymph % (Auto) Lymph # Seg Neutrophils % Seg Neuts % (Manual) 83.0 H Lymphocytes % (Manual) 10.0 L Monocytes % (Manual) Nucleated RBC % Seg Neutrophils # Seg Neutrophils # Man Lymphocytes # (Manual) 0.9 L Monocytes # (Manual) Sodium Potassium Chloride Carbon Dioxide BUN Creatinine Glucose POC Glucose 171 H 176 H Lactic Acid Calcium AST Alkaline Phosphatase Ammonia Total Creatine Kinase Total Protein Albumin Urine WBC (Auto) Urine Creatinine Hepatitis C Antibody 10/15/18 10/15/18 10/15/18 04:12 05:29 12:16 WBC RBC Hgb Hct MCV MCH MCHC Plt Count Lymph % (Auto) Lymph # Seg Neutrophils % Seg Neuts % (Manual) Lymphocytes % (Manual) Monocytes % (Manual) Nucleated RBC % Seg Neutrophils # Seg Neutrophils # Man Lymphocytes # (Manual) Monocytes # (Manual) Sodium 147 H Potassium Chloride 107.9 H Carbon Dioxide BUN 31 H Creatinine 1.8 H Glucose 162 H POC Glucose 164 H 152 H Lactic Acid Calcium 7.6 L AST Alkaline Phosphatase Ammonia Total Creatine Kinase Total Protein Albumin Urine WBC (Auto) Urine Creatinine Hepatitis C Antibody 10/15/18 10/15/18 10/15/18 12:22 12:27 12:27 WBC RBC Hgb Hct MCV MCH MCHC Plt Count Lymph % (Auto) Lymph # Seg Neutrophils % Seg Neuts % (Manual) Lymphocytes % (Manual) Monocytes % (Manual) Nucleated RBC % Seg Neutrophils # Seg Neutrophils # Man Lymphocytes # (Manual) Monocytes # (Manual) Sodium Potassium Chloride Carbon Dioxide BUN Creatinine Glucose POC Glucose Lactic Acid Calcium AST Alkaline Phosphatase Ammonia Total Creatine Kinase 1061 H Total Protein Albumin Urine WBC (Auto) 9.0 H Urine Creatinine 103.2 H Hepatitis C Antibody 10/15/18 10/16/18 10/16/18 21:44 05:26 05:26 WBC RBC 2.80 L Hgb 9.5 L Hct 28.1 L MCV 100 H MCH 34 H MCHC Plt Count 138 L Lymph % (Auto) Lymph # Seg Neutrophils % Seg Neuts % (Manual) 90.0 H Lymphocytes % (Manual) 6.0 L Monocytes % (Manual) Nucleated RBC % 1.0 H Seg Neutrophils # Seg Neutrophils # Man Lymphocytes # (Manual) 0.5 L Monocytes # (Manual) Sodium Potassium Chloride Carbon Dioxide BUN 32 H Creatinine 1.5 H Glucose 139 H POC Glucose 182 H Lactic Acid Calcium 7.7 L AST Alkaline Phosphatase Ammonia Total Creatine Kinase Total Protein Albumin Urine WBC (Auto) Urine Creatinine Hepatitis C Antibody 10/16/18 10/16/18 10/16/18 07:09 11:21 16:46 WBC RBC Hgb Hct MCV MCH MCHC Plt Count Lymph % (Auto) Lymph # Seg Neutrophils % Seg Neuts % (Manual) Lymphocytes % (Manual) Monocytes % (Manual) Nucleated RBC % Seg Neutrophils # Seg Neutrophils # Man Lymphocytes # (Manual) Monocytes # (Manual) Sodium Potassium Chloride Carbon Dioxide BUN Creatinine Glucose POC Glucose 135 H 147 H 169 H Lactic Acid Calcium AST Alkaline Phosphatase Ammonia Total Creatine Kinase Total Protein Albumin Urine WBC (Auto) Urine Creatinine Hepatitis C Antibody 10/16/18 10/17/18 10/17/18 21:44 04:34 04:34 WBC RBC 2.91 L Hgb 9.8 L Hct 29.1 L MCV 100 H MCH 34 H MCHC Plt Count Lymph % (Auto) Lymph # Seg Neutrophils % Seg Neuts % (Manual) 82.0 H Lymphocytes % (Manual) 8.0 L Monocytes % (Manual) Nucleated RBC % 1.0 H Seg Neutrophils # Seg Neutrophils # Man 8.9 H Lymphocytes # (Manual) 0.9 L Monocytes # (Manual) Sodium Potassium 3.1 L Chloride Carbon Dioxide 21 L BUN 29 H Creatinine Glucose 131 H POC Glucose 122 H Lactic Acid Calcium 7.3 L AST Alkaline Phosphatase Ammonia Total Creatine Kinase Total Protein Albumin Urine WBC (Auto) Urine Creatinine Hepatitis C Antibody 10/17/18 10/17/18 10/18/18 07:34 11:22 09:21 WBC 19.6 H RBC 2.80 L Hgb 9.5 L Hct 27.4 L MCV 98 H MCH 34 H MCHC 35 H Plt Count Lymph % (Auto) Lymph # Seg Neutrophils % Seg Neuts % (Manual) 79.0 H Lymphocytes % (Manual) 9.0 L Monocytes % (Manual) Nucleated RBC % Seg Neutrophils # Seg Neutrophils # Man 15.5 H Lymphocytes # (Manual) Monocytes # (Manual) 1.4 H Sodium Potassium Chloride Carbon Dioxide BUN Creatinine Glucose POC Glucose 137 H 151 H Lactic Acid Calcium AST Alkaline Phosphatase Ammonia Total Creatine Kinase Total Protein Albumin Urine WBC (Auto) Urine Creatinine Hepatitis C Antibody 10/18/18 10/18/18 10/18/18 09:21 11:58 16:43 WBC RBC Hgb Hct MCV MCH MCHC Plt Count Lymph % (Auto) Lymph # Seg Neutrophils % Seg Neuts % (Manual) Lymphocytes % (Manual) Monocytes % (Manual) Nucleated RBC % Seg Neutrophils # Seg Neutrophils # Man Lymphocytes # (Manual) Monocytes # (Manual) Sodium Potassium 2.8 L* Chloride Carbon Dioxide 18 L BUN 25 H Creatinine Glucose 113 H POC Glucose 149 H 154 H Lactic Acid Calcium 7.7 L AST Alkaline Phosphatase Ammonia Total Creatine Kinase Total Protein Albumin Urine WBC (Auto) Urine Creatinine Hepatitis C Antibody 10/18/18 10/19/18 10/19/18 21:29 05:13 05:13 WBC 26.7 H RBC 3.05 L Hgb 10.0 L Hct MCV 102 H MCH 33 H MCHC Plt Count Lymph % (Auto) Lymph # Seg Neutrophils % Seg Neuts % (Manual) 88.0 H Lymphocytes % (Manual) 7.0 L Monocytes % (Manual) Nucleated RBC % Seg Neutrophils # Seg Neutrophils # Man 23.5 H Lymphocytes # (Manual) Monocytes # (Manual) 1.3 H Sodium Potassium Chloride 108.4 H Carbon Dioxide 19 L BUN 22 H Creatinine Glucose POC Glucose 116 H Lactic Acid Calcium 7.5 L AST Alkaline Phosphatase Ammonia Total Creatine Kinase Total Protein Albumin Urine WBC (Auto) Urine Creatinine Hepatitis C Antibody 10/19/18 10/19/18 10/19/18 11:24 16:24 22:03 WBC RBC Hgb Hct MCV MCH MCHC Plt Count Lymph % (Auto) Lymph # Seg Neutrophils % Seg Neuts % (Manual) Lymphocytes % (Manual) Monocytes % (Manual) Nucleated RBC % Seg Neutrophils # Seg Neutrophils # Man Lymphocytes # (Manual) Monocytes # (Manual) Sodium Potassium Chloride Carbon Dioxide BUN Creatinine Glucose POC Glucose 136 H 143 H 176 H Lactic Acid Calcium AST Alkaline Phosphatase Ammonia Total Creatine Kinase Total Protein Albumin Urine WBC (Auto) Urine Creatinine Hepatitis C Antibody 10/20/18 10/20/18 10/20/18 04:49 04:49 07:38 WBC 22.4 H RBC 2.85 L Hgb 9.3 L Hct 28.7 L MCV 101 H MCH 33 H MCHC Plt Count Lymph % (Auto) Lymph # Seg Neutrophils % Seg Neuts % (Manual) 91.0 H Lymphocytes % (Manual) 4.0 L Monocytes % (Manual) Nucleated RBC % Seg Neutrophils # Seg Neutrophils # Man 20.4 H Lymphocytes # (Manual) 0.9 L Monocytes # (Manual) 0.9 H Sodium Potassium Chloride 108.1 H Carbon Dioxide 17 L BUN 23 H Creatinine Glucose 102 H POC Glucose 110 H Lactic Acid Calcium 7.5 L AST Alkaline Phosphatase Ammonia Total Creatine Kinase Total Protein Albumin Urine WBC (Auto) Urine Creatinine Hepatitis C Antibody 10/20/18 13:19 WBC RBC Hgb Hct MCV MCH MCHC Plt Count Lymph % (Auto) Lymph # Seg Neutrophils % Seg Neuts % (Manual) Lymphocytes % (Manual) Monocytes % (Manual) Nucleated RBC % Seg Neutrophils # Seg Neutrophils # Man Lymphocytes # (Manual) Monocytes # (Manual) Sodium Potassium Chloride Carbon Dioxide BUN Creatinine Glucose POC Glucose 135 H Lactic Acid Calcium AST Alkaline Phosphatase Ammonia Total Creatine Kinase Total Protein Albumin Urine WBC (Auto) Urine Creatinine Hepatitis C Antibody Chest x-ray: report reviewed, image reviewed (small bilateral pleural effusions. No acute pulmonary process.) Additional Studies: CT Scan of Abd/pelvis 10/19/18: 1. Diffuse distention of small and large bowel. This is greatest at the cecum which measures 9.6 cm in maximum diameter. The degree of distention has increased since the prior exam. I do not see a transition point to suggest bowel obstruction. There may be colitis involving the distal colon. Given the degree of cecal distention, close follow-up is recommended. 2. Mild ascites has slightly increased. There are new very small pleural effusions. 3. Additional incidental findings as above. Allied health notes reviewed: nursing
[2018-10-20] MEDS ORDERED: D50W (25GM) Syringe IV ONE ×2 (19:32→19:34)
--- NOTE | 2018-10-20 20:02 | Event Note ---
Date: 10/20/18 Responded to in-house code/CODE BLUE at the request of Hospital physician, Dr. Meehan, with a request for intubation for respiratory failure. Upon entering the room, patient receiving aggressive CPR, standard ACLS interventions, and [id number] ventilation. Patient presents initially with a GCS of 3 upon my initial evaluation. Direct laryngoscopy performed with a curved Zoila 3 blade, and even with aggressive suctioning, patient has copious oral gastric contents in the oropharynx, and is also simultaneously receiving aggressive CPR. Aggressive suctioning is performed, and a curved gum elastic bougie is inserted while following direct laryngoscopy, and tracheal rings are appreciated through palpable clicks. A 7.5 endotracheal tube was then inserted over the gum elastic bougie, ferry pilot balloon is inflated by respiratory therapy, and end-tidal capnography is applied to the endotracheal tube, confirming successful tube placement. Furthermore, video laryngoscopy is performed with a curved Zoila 3 blade, which confirms appropriate tube placement through the trachea. Patient still in a coma, receiving active CPR, and standard ACLS interventions. Prognosis is poor. We will defer postintubation management, and primary resuscitation to the inpatient team. If pulses are reobtained, we will defer postintubation x-ray follow-up and postintubation ventilator management to the inpatient team.
[2018-10-20] MEDS ORDERED: LEVOPHED DRIP 4 MG/NS 250 ML 4 MG/250 ML BAG IV ONE (20:25)
[2018-10-20 20:28] VITALS: BP 115/43
--- NOTE | 2018-10-21 10:39 | Death Summary ---
Summary - Providers Consults: 10/13/18 11:57 Consult to Physician [CONS] Routine Comment: Consulting Provider: TIEN ROMERO Physician Instructions: Reason For Exam: Hyperkalemia 10/13/18 13:28 Consult to Physician [CONS] Routine Comment: Consulting Provider: ROLANDO HENDRICKS Physician Instructions: Reason For Exam: partial SBO 10/13/18 15:12 Consult to Physician [CONS] Routine Comment: Consulting Provider: KATARZYNA ANNE Physician Instructions: Reason For Exam: vas cath placement 10/13/18 19:03 Consult to Physician [CONS] Routine Comment: Consulting Provider: WALDO MONTEZ Physician Instructions: Reason For Exam: critical care 10/15/18 08:33 Physical Therapy Evaluation and Treat [CONS] Routine Comment: Reason For Exam: deconditioning 10/15/18 08:36 Occupational Therapy Evaluate and Treat [CONS] Routine Comment: Reason For Exam: deconditioning 10/15/18 11:46 Consult to Mental Health [CONS] Routine Reason For Exam: behavioral disturbance Place consult to:: [facility] Notified:: [facility] Phone number called:: [phone] Comment:: Gl[facility] Drier to follow up Attending: FRAN NICOLE MD - summary Date of admission: 10/13/18 14:13 Date of : 10/20/18
--- NOTE | 2018-10-22 15:39 | Fluoroscopy Report ---
SMALL BOWEL FOLLOW-THROUGH HISTORY: Small bowel obstruction. TECHNIQUE: Single contrast Gastrografin technique utilized to evaluate the small bowel. FINDINGS: Research Laboratory Manager film of the abdomen demonstrates multiple dilated loops of small bowel and proximal c olon in the abdomen. Water-soluble contrast was administered via the nasogastric tube. Anterior abdom inal radiographs were obtained for 4.5 hours. There is incomplete transit of the contrast agent throu gh the small bowel loops up to 4.5 hours. No obvious transition point is demonstrated on this limited exam. The examination was terminated at this time due to the patient's condition. IMPRESSION: Incomplete small bowel series. See above. FLUOROSCOPIC TIME: 0 minutes NUMBER OF FLUOROSCOPIC IMAGES: 0 Signer Name: Stanford Feng Jr, MD Signed: 10/22/2018 3:35 PM Workstation Name: [id number]
--- NOTE | 2018-10-23 13:46 | XRay Report ---
CHEST 1 VIEW INDICATION: CODE BLUE. COMPARISON: 10/17/2018 FINDINGS: Support devices: Interval replacement of the right IJ CVL with tip in the SVC. New NG tube projecting below the [id number] into the upper abdomen. Heart: Within normal limits. Lungs/Pleura: New patchy multifocal airspace disease throughout the lungs. Additional findings: None. IMPRESSION: 1. New patchy multifocal airspace disease throughout the lungs. 2. Support device changes as above. Signer Name: Marvin Helton MD Signed: 10/21/2018 12:43 AM Workstation Name: [id number]
== END 2018-10-20 22:10 | DRG 871 ==
LOC: ED 08:11 → CC1 14:13 → 2B-ACE 10-15 15:20 → CC1 10-20 19:43
PROVIDERS: ADMIT Internal Medicine; ATTEND Internal Medicine
PROC: 02H633Z Insertion of Infusion Device into Right Atrium, Percutaneous Approach (ICD-10-PCS; principal; 2018-10-13)
PROC: B244ZZZ Ultrasonography of Right Heart (ICD-10-PCS; 2018-10-13)
PROC: B2141ZZ Fluoroscopy of Right Heart using Low Osmolar Contrast (ICD-10-PCS; 2018-10-13)
PROC: 0D9670Z Drainage of Stomach with Drainage Device, Via Natural or Artificial Opening (ICD-10-PCS; 2018-10-13)
PROC: 5A1D70Z Performance of Urinary Filtration, Intermittent, Less than 6 Hours Per Day (ICD-10-PCS; 2018-10-13)
PROC: 4A033R1 Measurement of Arterial Saturation, Peripheral, Percutaneous Approach (ICD-10-PCS; 2018-10-20)
PROC: 5A1935Z Respiratory Ventilation, Less than 24 Consecutive Hours (ICD-10-PCS; 2018-10-20)
PROC: 0BH17EZ Insertion of Endotracheal Airway into Trachea, Via Natural or Artificial Opening (ICD-10-PCS; 2018-10-20)
PROC: 5A12012 Performance of Cardiac Output, Single, Manual (ICD-10-PCS; 2018-10-20)
DX: A41.9 Sepsis, unspecified organism (principal); N17.0 Acute kidney failure with tubular necrosis; G92 Toxic encephalopathy; K56.600 Partial intestinal obstruction, unspecified as to cause; E87.2 Acidosis; M62.82 Rhabdomyolysis; N30.01 Acute cystitis with hematuria; E87.5 Hyperkalemia; N18.9 Chronic kidney disease, unspecified; R65.20 Severe sepsis without septic shock; J44.9 Chronic obstructive pulmonary disease, unspecified; K52.9 Noninfective gastroenteritis and colitis, unspecified; I12.9 Hypertensive chronic kidney disease with stage 1 through stage 4 chronic kidney disease, or unspecified chronic kidney disease; B19.20 Unspecified viral hepatitis C without hepatic coma; G47.00 Insomnia, unspecified; E11.22 Type 2 diabetes mellitus with diabetic chronic kidney disease; K63.89 Other specified diseases of intestine; F17.200 Nicotine dependence, unspecified, uncomplicated; K21.9 Gastro-esophageal reflux disease without esophagitis; M19.90 Unspecified osteoarthritis, unspecified site; I25.10 Atherosclerotic heart disease of native coronary artery without angina pectoris; E11.51 Type 2 diabetes mellitus with diabetic peripheral angiopathy without gangrene; Z86.73 Personal history of transient ischemic attack (TIA), and cerebral infarction without residual deficits; Z82.49 Family history of ischemic heart disease and other diseases of the circulatory system; Z89.422 Acquired absence of other left toe(s); Z79.899 Other long term (current) drug therapy; Z88.2 Allergy status to sulfonamides; Z90.710 Acquired absence of both cervix and uterus
CPT/HCPCS: 36415; 36556; 36600; 70450; 71045; 71046; 74018; 74019; 74022; 74176; 74177; 74250; 76770; 80048; 80053; 80074; 81001; 82140; 82550; 82570; 82803; 82962; 83036; 83690; 83735; 84100; 84443; 84484; 85007; 85025; 85730; 87040; 87045; 87076; 87086; 87186; 87517; 89050; 92950; 93005; 93010; 94002; 94640; 94644; 94760; 96361; 96365; 96366; 96368; 96375; G0378; A6250; C1752; C9113; J0360; J0610; J0690; J0692; J0696; J1170; J1644; J1815; J1940; J1956; J2270; J2405; J3370; J3480; J7030; J7040; J7042; J7070; Q9963; Q9967